=== PATIENT | male | born 1950 | race Caucasian/White ===

== ENCOUNTER 2017-01-12 10:45 | Inpatient (IN) | payer OTHER ==
[2017-01-12 11:02] VITALS: BMI 33.3
--- NOTE | 2017-01-12 12:04 | PDOC ---
History of Present Illness - General Chief Complaint: Revisit, Lab Variance Stated Complaint: PCP SENT FOR ADMIN Time Seen by Provider: 01/12/17 11:40 History Source: Patient Exam Limitations: No Limitations - History of Present Illness Initial Comments: 01/12/17 12:03 This is a 66-year-old male with past medical history of hypertension, pacemaker , aortic valve replacements with an artificial valve, CABG 3, MN, CVA with left -sided residual deficits, COPD, asthma stenosis, CHF who presents today for admission to have biopsy of left groin tumor. Patient states she is under the care of Dr. Munroe for wound care on bilateral lower extremities who found a mass in the left groin which she wants biopsy. Patient is on Coumadin status post CVA and AV replacement and needs his INR to be subtherapeutic to have procedure performed. Patient states his last Coumadin dose was evening. Patient currently denies any headaches, blurry vision, dizziness, chest pain, shortness of breath, abdominal pain, rectal bleeding, urinary difficulties. Past History - Past Medical History Allergies/Adverse Reactions: Allergies Allergy/AdvReac Type Severity Reaction Status Date / Time No Known Drug Allergies Allergy Verified 08/30/14 06:54 Home Medications: Ambulatory Orders Amlodipine Besylate [Norvasc -] 2.5 mg PO BID 01/12/17 Aspirin [ASA -] 81 mg PO DAILY 01/12/17 Atorvastatin Ca [Lipitor] 40 mg PO HS 01/12/17 Levetiracetam [Keppra -] 500 mg PO BID 01/12/17 Nortriptyline HCl [Pamelor -] 10 mg PO HS 01/12/17 Warfarin Sodium [Coumadin] 7.5 mg PO DAILY 01/12/17 Docusate Sodium [Colace -] 100 mg PO TID #90 capsule 01/15/17 Oxycodone HCl/Acetaminophen [Percocet 5-325 mg Tablet] 1 - 2 tab PO Q4H #20 tablet MDD 4 01/15/17 Amlodipine Besylate [Norvasc -] 2.5 mg PO BID tablet 01/21/17 Atorvastatin Ca [Lipitor] 20 mg PO HS tablet 01/21/17 Levetiracetam [Keppra -] 500 mg PO BID tablet 01/21/17 Nortriptyline HCl [Pamelor -] 10 mg PO HS capsule 01/21/17 Sulfamethoxazole/Trimethoprim [Bactrim Ds Tablet] 1 each PO BID #10 tablet 01/21 Warfarin Na [Coumadin -] 7.5 mg PO DAILY@1800 tablet 01/21/17 Anemia: No Asthma: No Cancer: No Cardiac Disorders: Yes (AORTIC VALVE REPLACEMENT, TRANSVERSE ARCH GRAFT) CVA: No COPD: Yes (ABESTOSIS) CHF: Yes Dementia: No Diabetes: No GI Disorders: Yes (HIATAL HERNIA) Disorders: No HTN: Yes Hypercholesterolemia: Yes Liver Disease: No Seizures: No Thyroid Disease: No - Surgical History Abdominal Surgery: No Appendectomy: No Cardiac Surgery: Yes (PACEMAKER; VALVE REPLACEMENT,TRANSVERSE ARCH GRAFT) Cholecystectomy: No Lung Surgery: No Neurologic Surgery: No Orthopedic Surgery: No - Immunization History Immunization Up to Date: Yes - Suicide/Smoking/Psychosocial Hx Smoking Status: No Smoking History: Former smoker Have you smoked in the past 12 months: Yes Number of Cigarettes Smoked Daily: 8 If you are a former smoker, when did you quit?: years ago Cigars Per Day: 1 Information on smoking cessation initiated: No 'Breaking Loose' booklet given: 08/16/14 Hx Alcohol Use: Yes (2 BEERS/DAY) Drug/Substance Use Hx: No Substance Use Type: Alcohol Hx Substance Use Treatment: No Review of Systems - Review of Systems Able to Perform ROS?: Yes Is the patient limited Croatian proficient: No Constitutional: No: Symptoms Reported HEENTM: No: Symptoms Reported Respiratory: No: Symptoms reported Cardiac (ROS): No: Symptoms Reported ABD/GI: No: Symptoms Reported : No: Symptoms Reported Musculoskeletal: Yes: See HPI Integumentary: No: Symptoms Reported Neurological: No: Symptoms reported *Physical Exam - Vital Signs Last Vital Signs Temp Pulse Resp BP Pulse Ox 98.8 F 80 20 148/85 98 01/12/17 10:59 01/12/17 10:59 01/12/17 10:59 01/12/17 10:59 01/12/17 10:59 - Physical Exam General Appearance: Yes: Appropriately Dressed. No: Apparent Distress HEENT: positive: EOMI, IAN, Normal ENT Inspection Neck: positive: Trachea midline, Supple Respiratory/Chest: positive: Lungs Clear, Normal Breath Sounds, Hyperresonant. negative: Chest Tender, Respiratory Distress, Accessory Muscle Use Cardiovascular: positive: Regular Rhythm, Regular Rate, Murmur (3/6 holosystolic ). negative: S1, S2 Vascular Pulses: Dorsalis-Pedis (R): 2+, Doralis-Pedis (L): 2+ Gastrointestinal/Abdominal: positive: Normal Bowel Sounds, Soft. negative: Tender Musculoskeletal: positive: Normal Inspection. negative: CVA Tenderness Extremity: positive: Other (venous stasis changes noted to bilateral lower extremities) Integumentary: positive: Dry, Warm, Other (venous stasis changes noted to bilateral lower extremities) Neurologic: positive: skiver sock linings II-XII NML intact, Fully Oriented, Alert, Normal Mood/ Affect, Normal Response, Motor Strength 07/18 ED Treatment Course - LABORATORY CBC & Chemistry Diagram: 01/20/17 12:40 01/20/17 12:40 - RADIOLOGY Radiology Studies Ordered: Category Date Time Status CHEST PA & LAT [RAD] Stat Radiology 01/12/17 11:57 Ordered Medical Decision Making - Medical Decision Making 01/22/17 12:26 01/12/17 12:03 A/P: This is a 66-year-old male with past medical history of hypertension, pacemaker , aortic valve replacements with an artificial valve, CABG 3, MN, CVA with left -sided residual deficits, COPD, asthma stenosis, CHF who presents today for admission to have biopsy of left groin tumor. Patient states she is under the care of Dr. Munroe for wound care on bilateral lower extremities who found a mass in the left groin which she wants biopsy. Patient is on Coumadin status post CVA and AV replacement and needs his INR to be subtherapeutic to have procedure performed. Patient states his last Coumadin dose was evening. Patient currently denies any headaches, blurry vision, dizziness, chest pain, shortness of breath, abdominal pain, rectal bleeding, urinary difficulties. Upon exam a 4 cm palpable circular mass noted in the left groin. Patient with full sensation and movement distal to mass. DP and PT pulses +2 in bilateral lower extremities. Moves all extremities 4 with strength 5 out of 5 noted in all extremities. Patient does have residual left-sided hand tingling status post CVA. Diagnosis- right groin mass I will collect a CBC, CMP, regulation profile. I will collect a chest x-ray for admission. I'll do an EKG for admission. After results I will contact Dr. Weinstein for admission. 01/12/17 14:[address] Monet. Patient will be admitted to [facility] for biopsy of his right groin. *DC/Admit/Observation/Transfer Diagnosis at time of Disposition: Mass - Discharge Dispostion Disposition: HOME Condition at time of disposition: Fair Admit: Yes Decision to Admit order Date/Time: 01/12/17 14:31 - Prescriptions - Referrals - Patient Instructions - Post Discharge Activity
[2017-01-12 13:24] LABS: BASOPHIL 0.8 % (0-2.0); EOSINOPHIL 1.9 % (0-4.5); MCH 32.3 pg (25.7-33.7); MCHC 33.5 g/dl (32.0-35.9); MEAN CELL VOLUME 96.3 fl (80-96); MEAN PLT VOLUME 8.1 fl (7.5-11.1); PLATELET COUNT 179 K/MM3 (134-434); RDW 14.4 % (11.9-15.9)
[2017-01-12 13:31] LABS: INR 1.42 (0.82-1.09); PROTHROMBIN TIME (PATIENT) 16.1 SEC (9.98-11.88)
[2017-01-12 13:36] LABS: ALBUMIN 3.9 g/dl (3.4-5.0); ALK PHOS 84 U/L (45-117); ANION GAP 4 (8-16); BILIRUBIN,TOTAL 0.5 mg/dL (0.2-1.0); CALCIUM 8.8 mg/dL (8.5-10.1); CO2 31 mmol/L (21-32); CREATININE 0.8 mg/dL (0.7-1.3); GLUCOSE,RANDOM 83 mg/dL (74-106); SGOT/AST 17 U/L (15-37); SGPT/ALT 21 U/L (12-78)
--- NOTE | 2017-01-12 14:55 | EKG ---
Test Reason : Blood Pressure : / mmHG Vent. Rate : 080 BPM Atrial Rate : 073 BPM P-R Int : 000 ms QRS Dur : 192 ms QT Int : 472 ms P-R-T Axes : 000 -38 077 degrees QTc Int : 544 ms Ventricular-paced rhythm ABNORMAL ECG WHEN COMPARED WITH ECG OF 28-JUL-2013 16:21, NO SIGNIFICANT CHANGE WAS FOUND Confirmed by MUSTAPHA SÁNCHEZ MD ([id number]) on 01/12/2017 2:55:07 PM Referred By: Confirmed By:MUSTAPHA SÁNCHEZ MD
[2017-01-12] MEDS ORDERED: HEPARIN NA (PORCINE) 5,000 UNITS/ML 1ML VIAL IVPUSH PRN (17:35)
--- NOTE | 2017-01-12 17:41 | HP ---
Admitting History and Physical - Primary Care Physician PCP: Viridiana Monet - Admission Chief Complaint: lymph node resection History of Present Illness: history cva,afib, aortic valve replacement metal, neuropathy, htn here with lower extremity lymph node needing resection and biopsy. 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 Cardiovascular: Yes: AFIB, HTN, Other (atrial valve prosthesis) - Smoking History Smoking history: Former smoker Have you smoked in the past 12 months: Yes Aproximately how many cigarettes per day: 8 If you are a former smoker, when did you quit?: years ago - Alcohol/Substance Use Hx Alcohol Use: Yes (2 BEERS/DAY) Home Medications - Allergies Allergies/Adverse Reactions: Allergies Allergy/AdvReac Type Severity Reaction Status Date / Time No Known Drug Allergies Allergy Verified 08/30/14 06:54 - Home Medications Home Medications: Ambulatory Orders Amlodipine Besylate [Norvasc -] 2.5 mg PO BID 01/12/17 Aspirin [ASA -] 81 mg PO DAILY 01/12/17 Atorvastatin Ca [Lipitor] 40 mg PO HS 01/12/17 Levetiracetam [Keppra -] 500 mg PO BID 01/12/17 Nortriptyline HCl [Pamelor -] 10 mg PO HS 01/12/17 Warfarin Sodium [Coumadin] 7.5 mg PO DAILY 01/12/17 Review of Systems - Review of Systems Constitutional: reports: No Symptoms Eyes: reports: No Symptoms HENT: reports: No Symptoms Neck: reports: No Symptoms Cardiovascular: reports: No Symptoms Respiratory: reports: No Symptoms Gastrointestinal: reports: No Symptoms Genitourinary: reports: No Symptoms Musculoskeletal: reports: Muscle Weakness Integumentary: reports: Rash Neurological: reports: Pre-Existing Deficit, Weakness Endocrine: reports: No Symptoms Hematology/Lymphatic: reports: Swollen Glands, Other Psychiatric: reports: No Symptoms Physical Examination Vital Signs: Vital Signs Temperature 98.8 F 01/12/17 10:59 Pulse Rate 80 01/12/17 10:59 Respiratory Rate 20 01/12/17 10:59 Blood Pressure 148/85 01/12/17 10:59 O2 Sat by Pulse Oximetry (%) 98 01/12/17 10:59 Constitutional: Yes: No Distress Eyes: Yes: WNL HENT: Yes: WNL Neck: Yes: WNL Cardiovascular: Yes: Pulse Irregular, Murmur Respiratory: Yes: WNL Gastrointestinal: Yes: WNL ...Rectal Exam: Yes: WNL Musculoskeletal: Yes: Muscle Weakness Extremities: Yes: WNL Edema: Yes Edema: LLE: 1+, RLE: 1+ Peripheral Pulses WNL: Yes Integumentary: Yes: Venous Stasis Changes Wound/Incision: Yes: Open to air Neurological: Yes: Paresthesia, Pre-Existing Deficit, Unsteady Gait, Weakness, Other ...Motor Strength: LLE, RLE Psychiatric: Yes: WNL Problem List - Problems (1) Mass Code(s): R22.9 - LOCALIZED SWELLING, MASS AND LUMP, UNSPECIFIED (2) Venous (peripheral) insufficiency Code(s): I87.2 - VENOUS INSUFFICIENCY (CHRONIC) (PERIPHERAL) (3) H/O heart valve replacement with bioprosthetic valve Code(s): Z95.3 - PRESENCE OF XENOGENIC HEART VALVE Assessment/Plan heparin iv stopped coumadin for 3 days now cardiology eval oob to chair urgery for mass lower extremity
[2017-01-12] MEDS: HEPARIN INFUSION - 500 ML IVPB SCH (18:20)
[2017-01-12] MEDS ORDERED: HEPARIN INFUSION - 500 ML IVPB ONE (18:20)
--- NOTE | 2017-01-12 21:16 | CONSULT ---
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 Cardio/Vascular: Yes: AFIB, HTN, Other (atrial valve prosthesis) - Alcohol/Substance Use Hx Alcohol Use: Yes (2 BEERS/DAY) - Smoking History Smoking history: Former smoker Have you smoked in the past 12 months: Yes Aproximately how many cigarettes per day: 8 If you are a former smoker, when did you quit?: years ago Home Medications - Allergies Allergies/Adverse Reactions: Allergies Allergy/AdvReac Type Severity Reaction Status Date / Time No Known Drug Allergies Allergy Verified 08/30/14 06:54 - Home Medications Home Medications: Ambulatory Orders Amlodipine Besylate [Norvasc -] 2.5 mg PO BID 01/12/17 Aspirin [ASA -] 81 mg PO DAILY 01/12/17 Atorvastatin Ca [Lipitor] 40 mg PO HS 01/12/17 Levetiracetam [Keppra -] 500 mg PO BID 01/12/17 Nortriptyline HCl [Pamelor -] 10 mg PO HS 01/12/17 Warfarin Sodium [Coumadin] 7.5 mg PO DAILY 01/12/17 Family Disease History - Family Disease History Family History: Unremarkable Review of Systems - Review of Systems Constitutional: denies: Fever Neck: reports: No Symptoms Cardiovascular: denies: Chest Pain Respiratory: denies: Cough Gastrointestinal: denies: Abdominal Pain Neurological: denies: Change in LOC Pain Intensity: 3 Physical Exam Vital Signs: Vital Signs Temperature 98.8 F 01/12/17 10:59 Pulse Rate 84 01/12/17 18:13 Respiratory Rate 18 01/12/17 18:13 Blood Pressure 152/81 01/12/17 18:13 O2 Sat by Pulse Oximetry (%) 99 01/12/17 18:13 Constitutional: Yes: Calm Cardiovascular: Yes: WNL Respiratory: Yes: Regular Gastrointestinal: Yes: Soft, Other (Left groin/inguinal mass- hard, mild tenderness, no erythema, no discharge, not mobile). No: Tenderness, Tenderness , Rebound Neurological: Yes: Alert, Oriented Labs: CBC, BMP 01/12/17 13:10 01/12/17 13:10 Problem List - Problems (1) Left groin mass Code(s): R19.09 - OTHER INTRA-ABDOMINAL AND PELVIC SWELLING, MASS AND LUMP Assessment/Plan 66 male with left groin mass Will perform surgical biopsy once cleared by cardiology Will need heparin drip stopped 6 hours prior to surgery
[2017-01-12] MEDS: amLODIPine BESYLATE 2.5 MG TABLET (FP) PO SCH (21:53)
[2017-01-12] MEDS: levETIRAcetam 500 MG TABLET (FP) PO SCH (21:53)
[2017-01-12] MEDS: ATORVASTATIN CA 20 MG TABLET (FP) PO SCH (21:53)
[2017-01-12] MEDS: NORTRIPTYLINE HCL 10 MG CAPSULE PO SCH (21:54)
[2017-01-12] MEDS ORDERED: NORTRIPTYLINE HCL 10 MG CAPSULE PO SCH (22:00)
[2017-01-13] MEDS: HEPARIN INFUSION - 500 ML IVPB SCH ×2 (00:50→20:33)
[2017-01-13] MEDS: HEPARIN NA (PORCINE) 5,000 UNITS/ML 1ML VIAL IVPUSH PRN (00:50)
--- NOTE | 2017-01-13 09:02 | CON.CARD ---
Cardiology Consult (text) - Consultation Consultation Note: Cardiology Consult Dictated 66M w/ h/p Reop AVR (mechanical, on AC), ascending aortic aneurysm graft, CVA, PPM ([employer] [facility]) admitted for biopsy groin mass. REC: -D/W Dr. Monet and RN- cancel surgery today -Needs device interrogation, to determine if PPM dependant as suggested on ECG ( he also reports device was at ABBI) -Echo for EF assessment -Continue heparin gtts Further reccs pending above. Thank you.
[2017-01-13 09:14] LABS: INR 1.28 (0.82-1.09); PROTHROMBIN TIME (PATIENT) 14.5 SEC (9.98-11.88)
[2017-01-13 09:23] LABS: ALBUMIN 3.6 g/dl (3.4-5.0); ANION GAP 7 (8-16); CALCIUM 8.4 mg/dL (8.5-10.1); CHOLESTEROL 130 mg/dL (50-200); CO2 28 mmol/L (21-32); CREATININE 0.8 mg/dL (0.7-1.3); GLUCOSE,RANDOM 84 mg/dL (74-106); SGOT/AST 14 U/L (15-37); SGPT/ALT 20 U/L (12-78)
[2017-01-13 09:32] LABS: ALK PHOS 79 U/L (45-117); BILIRUBIN,TOTAL 0.6 mg/dL (0.2-1.0); THYROID STIMULATING HORMONE 1.55 uIU/ml (0.358-3.74); TOT PROT 7.2 g/dl (6.4-8.2)
[2017-01-13] MEDS: levETIRAcetam 500 MG TABLET (FP) PO SCH ×2 (09:43→22:09)
[2017-01-13] MEDS: amLODIPine BESYLATE 2.5 MG TABLET (FP) PO SCH ×2 (09:43→22:09)
[2017-01-13] MEDS ORDERED: amLODIPine BESYLATE 10 MG TABLET (FP) PO SCH (10:00)
--- NOTE | 2017-01-13 10:31 | CONS ---
DATE OF CONSULTATION: 01/13/2017 REQUESTED BY: Viridiana Monet MD REASON FOR CONSULTATION: Preoperative clearance. 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. He was admitted for biopsy of a groin mass. Coumadin was held and he was placed on heparin drip. REVIEW OF SYSTEMS: He has chronic dyspnea on exertion that he attributes to his asbestosis. He denies history of coronary artery disease, denies anginal symptoms, palpitations, PND, orthopnea. 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 PAST MEDICAL HISTORY: As above and also includes prior CVA which occurred after his aortic surgery, hypertension, asbestosis, hyperlipidemia. ALLERGIES: None. HOME MEDICATIONS: Include Coumadin 7.5 daily, nortriptyline 10 at bedtime, Keppra 500 b.i.d., Lipitor 40 at bedtime, aspirin 81, and amlodipine 2.5. FAMILY HISTORY: Noncontributory. SOCIAL HISTORY: Former smoker. Drinks 2 beers per day. PHYSICAL EXAMINATION: General: Alert and oriented. Vital Signs: Afebrile, temperature 98.1, blood pressure 133/78, saturating 99 on room air. Neck: No bruits. Median sternotomy is noted. Heart: Mechanical S2. There is no murmur. Chest: Clear. Abdomen: Soft. Extremities: Venostasis with no edema. DIAGNOSTIC DATA: EKG shows ventricular pacing. Chest x-ray showed cardiomegaly, no infiltrates. CBC was reviewed and was normal. INR is down to 1.42. Patient is currently on heparin. Basic metabolic panel was normal on admission. IMPRESSION: A 66-year-old male with mechanical aortic valve, history of ascending aneurysm graft repair, permanent pacemaker, admitted for biopsy of groin mass. PLAN: 1. Discussed with Dr. Monet and patient's nurse - hold surgery today. 2. Needs [employer] Ever interrogation as patient reports that his battery was at elective replacement interval and also to determine if he is pacemaker dependent as suggested on EKG. 3. Echocardiogram for assessment of LV function. Further recommendations for preoperative management pending above. Thank you for the consultation. FEI PATEL M.D. [id number] MTDD
--- NOTE | 2017-01-13 15:27 | PN ---
Progress Note, Physician Chief Complaint: AWAKE ALERT AWAITING PACEMAKER EVAL - Current Medication List Current Medications: Active Medications Amlodipine Besylate (Norvasc -) 2.5 mg PO BID [facility] Last Admin: 01/13/17 09:43 Dose: 2.5 mg Atorvastatin Calcium (Lipitor -) 20 mg PO HS [facility] Last Admin: 01/12/17 21:53 Dose: 20 mg Heparin Sodium (Porcine) (Heparin -) 1,000 unit IVPUSH PRN PRN PRN Reason: Heparin Heparin Sodium (Porcine) (Heparin -) 5,000 unit IVPUSH PRN PRN PRN Reason: Heparin Last Admin: 01/13/17 00:50 Dose: 5,000 unit Heparin Sodium/Dextrose (Heparin Infusion -) 500 mls @ 16 mls/hr IVPB TITR DIANE ; 800 UNITS/HR PRN Reason: Protocol Last Titration: 01/13/17 10:42 Dose: 950 units/hr Levetiracetam (Keppra -) 500 mg PO BID [facility] Last Admin: 01/13/17 09:43 Dose: 500 mg Nortriptyline HCl (Pamelor -) 10 mg PO [facility] Last Admin: 01/12/17 21:54 Dose: 10 mg - Objective Vital Signs: Vital Signs Temperature 98 F 01/13/17 09:00 Pulse Rate 80 01/13/17 09:00 Respiratory Rate 20 01/13/17 09:00 Blood Pressure 144/85 01/13/17 09:00 O2 Sat by Pulse Oximetry (%) 99 01/13/17 02:34 Constitutional: Yes: Mild Distress Eyes: Yes: WNL HENT: Yes: WNL Neck: Yes: WNL Cardiovascular: Yes: Pulse Irregular Respiratory: Yes: WNL Gastrointestinal: Yes: WNL Genitourinary: Yes: WNL Musculoskeletal: Yes: Muscle Weakness Extremities: Yes: WNL Edema: Yes Peripheral Pulses WNL: Yes Integumentary: Yes: WNL Wound/Incision: Yes: Clean/Dry Neurological: Yes: Pre-Existing Deficit ...Motor Strength: LLE, RLE Psychiatric: Yes: WNL Labs: CBC, BMP 01/13/17 07:45 INR, PTT INR 1.28 (0.82-1.09) H 01/13/17 07:45 Problem List - Problems (1) Mass Code(s): R22.9 - LOCALIZED SWELLING, MASS AND LUMP, UNSPECIFIED (2) Venous (peripheral) insufficiency Code(s): I87.2 - VENOUS INSUFFICIENCY (CHRONIC) (PERIPHERAL) (3) H/O heart valve replacement with bioprosthetic valve Code(s): Z95.3 - PRESENCE OF XENOGENIC HEART VALVE Assessment/Plan heparin iv stopped coumadin cardiology eval appreciated pacemaker eval pending oob to chair surgery for mass lower extremity
--- NOTE | 2017-01-13 19:23 | PN ---
Progress Note (short form) - Note Progress Note: No acute events Awaiting cardiology clearance for surgery No pain Vital Signs Period Temp Pulse Resp BP Sys/Lugo Pulse Ox Last 24 Hr 98 F-99.0 F 79-86 18-20 132-144/65-85 99 Left groin- unchanged CBC, BMP 01/12/17 13:10 01/13/17 07:45 INR, PTT INR 1.28 (0.82-1.09) H 01/13/17 07:45 Will plan biopsy after cleared by cardiology Problem List - Problems (1) Left groin mass Code(s): R19.09 - OTHER INTRA-ABDOMINAL AND PELVIC SWELLING, MASS AND LUMP
[2017-01-13] MEDS: ATORVASTATIN CA 20 MG TABLET (FP) PO SCH (22:09)
[2017-01-13] MEDS: NORTRIPTYLINE HCL 10 MG CAPSULE PO SCH (22:09)
[2017-01-14 08:26] LABS: MCH 32.4 pg (25.7-33.7); MCHC 33.7 g/dl (32.0-35.9); MEAN PLT VOLUME 8.4 fl (7.5-11.1); PLATELET COUNT 157 K/MM3 (134-434); RDW 14.3 % (11.9-15.9); WHITE BLOOD COUNT 7.9 K/mm3 (4.0-10.0)
--- NOTE | 2017-01-14 08:36 | PN ---
Progress Note, Physician Chief Complaint: No distress - Current Medication List Current Medications: Active Medications Amlodipine Besylate (Norvasc -) 2.5 mg PO BID [facility] Last Admin: 01/13/17 22:09 Dose: 2.5 mg Atorvastatin Calcium (Lipitor -) 20 mg PO HS [facility] Last Admin: 01/13/17 22:09 Dose: 20 mg Heparin Sodium (Porcine) (Heparin -) 1,000 unit IVPUSH PRN PRN PRN Reason: Heparin Heparin Sodium (Porcine) (Heparin -) 5,000 unit IVPUSH PRN PRN PRN Reason: Heparin Last Admin: 01/13/17 00:50 Dose: 5,000 unit Heparin Sodium/Dextrose (Heparin Infusion -) 500 mls @ 16 mls/hr IVPB TITR DIANE ; 800 UNITS/HR PRN Reason: Protocol Last Admin: 01/13/17 20:33 Dose: 19 mls/hr Levetiracetam (Keppra -) 500 mg PO BID [facility] Last Admin: 01/13/17 22:09 Dose: 500 mg Nortriptyline HCl (Pamelor -) 10 mg PO HS [facility] Last Admin: 01/13/17 22:09 Dose: 10 mg - Objective Vital Signs: Vital Signs Temperature 97.5 F L 01/14/17 06:07 Pulse Rate 80 01/14/17 06:07 Respiratory Rate 18 01/14/17 06:07 Blood Pressure 123/73 01/14/17 06:07 O2 Sat by Pulse Oximetry (%) 99 01/13/17 21:48 Constitutional: Yes: Calm Eyes: Yes: Conjunctiva Clear Cardiovascular: Yes: Regular Rate and Rhythm Respiratory: Yes: CTA Bilaterally Gastrointestinal: Yes: Soft Neurological: Yes: Alert, Oriented ...Motor Strength: WNL Labs: CBC, BMP 01/14/17 07:00 01/13/17 07:45 INR, PTT INR 1.28 (0.82-1.09) H 01/13/17 07:45 Laboratory Tests 01/13/17 01/13/17 01/13/17 07:45 07:45 07:45 WBC Hgb Plt Count INR 1.28 H PTT (Actin FS) 55.5 H D Potassium 3.6 01/14/17 07:00 WBC 7.9 Hgb 12.3 Plt Count 157 INR PTT (Actin FS) Potassium Assessment/Plan 66M w/ h/p Reop AVR (mechanical, on AC), ascending aortic aneurysm graft, CVA, PPM ([facility] [facility]) admitted for biopsy groin mass. [facility] Ever interrogation: Patient is at ABBI - elective battery replacement interval, should have battery change in next 3 months DDD at base rate 80bpm 99% V-paced, PACEMAKER DEPENDANT Normal device function. REC: No cardiac contraindications to surgery. As he is PPM dependant, can place magnet during surgery and it will pace at 88bpm. 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 Resume Coumadin post op when feasible with heparin gtts as bridge until INR 2-3
[2017-01-14] MEDS: HEPARIN INFUSION - 500 ML IVPB SCH ×2 (10:00→19:41)
[2017-01-14] MEDS: levETIRAcetam 500 MG TABLET (FP) PO SCH ×2 (10:02→22:07)
[2017-01-14] MEDS: amLODIPine BESYLATE 2.5 MG TABLET (FP) PO SCH ×2 (10:03→22:07)
--- NOTE | 2017-01-14 11:10 | PN ---
Progress Note, Physician Chief Complaint: SCHEDULED FOR SURGERY TOMORROW AWAKE ALERT NO DISTRESS - Current Medication List Current Medications: Active Medications Amlodipine Besylate (Norvasc -) 2.5 mg PO BID [facility] Last Admin: 01/14/17 10:03 Dose: 2.5 mg Atorvastatin Calcium (Lipitor -) 20 mg PO HS [facility] Last Admin: 01/13/17 22:09 Dose: 20 mg Heparin Sodium (Porcine) (Heparin -) 1,000 unit IVPUSH PRN PRN PRN Reason: Heparin Heparin Sodium (Porcine) (Heparin -) 5,000 unit IVPUSH PRN PRN PRN Reason: Heparin Last Admin: 01/13/17 00:50 Dose: 5,000 unit Heparin Sodium/Dextrose (Heparin Infusion -) 500 mls @ 16 mls/hr IVPB TITR DIANE ; 800 UNITS/HR PRN Reason: Protocol Last Admin: 01/13/17 20:33 Dose: 19 mls/hr Levetiracetam (Keppra -) 500 mg PO BID [facility] Last Admin: 01/14/17 10:02 Dose: 500 mg Nortriptyline HCl (Pamelor -) 10 mg PO [facility] Last Admin: 01/13/17 22:09 Dose: 10 mg - Objective Vital Signs: Vital Signs Temperature 98.2 F 01/14/17 10:43 Pulse Rate 90 01/14/17 10:43 Respiratory Rate 20 01/14/17 10:43 Blood Pressure 140/82 01/14/17 10:43 O2 Sat by Pulse Oximetry (%) 99 01/13/17 21:48 Constitutional: Yes: No Distress Eyes: Yes: WNL HENT: Yes: WNL Neck: Yes: WNL Cardiovascular: Yes: Pulse Irregular Respiratory: Yes: WNL Gastrointestinal: Yes: WNL Genitourinary: Yes: WNL Musculoskeletal: Yes: Muscle Weakness Extremities: Yes: Deformity Integumentary: Yes: Venous Stasis Changes Wound/Incision: Yes: Clean/Dry Neurological: Yes: Pre-Existing Deficit, Unsteady Gait ...Motor Strength: LLE, RLE Psychiatric: Yes: WNL Labs: CBC, BMP 01/14/17 07:00 01/13/17 07:45 INR, PTT INR 1.28 (0.82-1.09) H 01/13/17 07:45 Problem List - Problems (1) Mass Code(s): R22.9 - LOCALIZED SWELLING, MASS AND LUMP, UNSPECIFIED (2) Venous (peripheral) insufficiency Code(s): I87.2 - VENOUS INSUFFICIENCY (CHRONIC) (PERIPHERAL) (3) H/O heart valve replacement with bioprosthetic valve Code(s): Z95.3 - PRESENCE OF XENOGENIC HEART VALVE Assessment/Plan heparin iv stopped coumadin cardiology eval appreciated pacemaker eval pending oob to chair surgery for mass lower extremity
--- NOTE | 2017-01-14 13:43 | PN ---
Progress Note (short form) - Note Progress Note: No acute events Cleared by cardiology Vital Signs Period Temp Pulse Resp BP Sys/Lugo Pulse Ox Last 24 Hr 97.5 F-99.0 F 76-90 18-20 122-140/65-82 99 Left groin unchanged CBC, BMP 01/14/17 07:00 01/13/17 07:45 NPO at midnight Stop IV heparin at midnight For biopsy in am Problem List - Problems (1) Left groin mass Code(s): R19.09 - OTHER INTRA-ABDOMINAL AND PELVIC SWELLING, MASS AND LUMP
[2017-01-14] MEDS: ATORVASTATIN CA 20 MG TABLET (FP) PO SCH (22:07)
[2017-01-14] MEDS: NORTRIPTYLINE HCL 10 MG CAPSULE PO SCH (22:08)
[2017-01-15] MEDS ORDERED: LIDOCAINE 1%/EPI 1:100000 (20 ML MULTI DOSE VIAL) ONE (07:35)
[2017-01-15] MEDS ORDERED: BACITRACIN 15 GM TUBE TOPICAL OINTMENT ONE (07:35)
[2017-01-15] MEDS ORDERED: ceFAZolin SODIUM 1 GM VIAL IVPB ONE (07:58)
[2017-01-15] MEDS ORDERED: LIDOCAINE 1%/EPI 1:100000 (50 ML MULTI DOSE VIAL) INF ONE (08:01)
--- NOTE | 2017-01-15 08:50 | OP ---
Operative Note - Note: Operative Date: 01/15/17 Pre-Operative Diagnosis: Left groin mass Operation: Excisional biopsy of left groin mass Post-Operative Diagnosis: Same as Pre-op Surgeon: Geovanni Weinstein Anesthesia: Local Specimens Removed: Left groin mass Estimated Blood Loss (mls): 5 Operative Report Dictated: Yes
--- NOTE | 2017-01-15 09:26 | OP ---
DATE OF OPERATION: 01/15/2017 SURGEON: Geovanni Weinstein MD PREOPERATIVE DIAGNOSIS: Left groin mass. POSTOPERATIVE DIAGNOSIS: Left groin mass. PROCEDURE PERFORMED: Excisional biopsy of left groin mass. SPECIMEN: Left groin mass. ESTIMATED BLOOD LOSS: 5 mL. ANESTHESIA: Local. FINDINGS: Enlarged left groin mass. PATHOLOGY: Left groin mass for microbiology, culture, fresh specimen for flow cytometry to rule out lymphoma, and the rest of the specimen for pathology. REASON FOR PROCEDURE: This is a 66-year-old gentleman who was found to have a left groin mass on examination. CONSENT: After cleared by Cardiology, he was consented for a left groin mass biopsy/excisional biopsy. The risks and benefits of the procedure were explained. These included bleeding, infection, wound dehiscence, injury to surrounding structures (including vessel injury, nerve injury, bowel injury), CA, DVT and PE as some of the complications. He understood and signed informed consent. DESCRIPTION OF PROCEDURE: The patient was placed supine on the operating room table. The area was prepped and draped in the usual sterile fashion. A time-out was performed. Lidocaine with epinephrine was injected over the area that was palpated and noted to be the area of the left groin mass. Incision was made over the level of the mass and area dissected down to the level of the mass. The mass was grasped with a clamp and circumferentially dissected. A large portion of the mass was excised using electrocautery and sent off the field. The portion was sent for microbiology and the rest was sent for a fresh specimen to Pathology for pathology as well as flow cytometry to rule out lymphoma. This was discussed with Pathology prior to the case. Hemostasis was obtained using electrocautery. Surgicel dressing was placed after the wound was irrigated, suctioned and noted to be dry, to aid with hemostasis. 3-0 Vicryl sutures were used to close the wound in multiple layers and 4-0 Biosyn was used to close the subcutaneous tissue. Steri-Strips and Betadine ointment were applied. Dressings was applied. The patient tolerated the procedure well and was transferred to the recovery room in stable condition. Tacho [id number]
[2017-01-15 09:30] LABS: MCH 32.4 pg (25.7-33.7); MCHC 33.5 g/dl (32.0-35.9); MEAN CELL VOLUME 96.5 fl (80-96); MEAN PLT VOLUME 8.2 fl (7.5-11.1); PLATELET COUNT 170 K/MM3 (134-434); WHITE BLOOD COUNT 8.4 K/mm3 (4.0-10.0)
[2017-01-15] MEDS: amLODIPine BESYLATE 2.5 MG TABLET (FP) PO SCH ×2 (09:41→22:11)
[2017-01-15] MEDS: levETIRAcetam 500 MG TABLET (FP) PO SCH ×2 (09:41→22:11)
[2017-01-15] MEDS ORDERED: oxyCODONE HCL 5 MG TABLET PO PRN (11:08)
[2017-01-15] MEDS ORDERED: ACETAMINOPHEN 325 MG TABLET (FP) PO PRN (11:08)
--- NOTE | 2017-01-15 11:37 | PN ---
Progress Note, Physician Chief Complaint: AWAKE ALERT S/P RESECTION/BIOPSY RIGHT LOWER EXTREMITY MASS - Current Medication List Current Medications: Active Medications Acetaminophen (Tylenol -) 325 mg PO Q6H PRN PRN Reason: PAIN SCALE 6-10 Stop: 01/18/17 11:07 Amlodipine Besylate (Norvasc -) 2.5 mg PO BID [facility] Last Admin: 01/15/17 09:41 Dose: 2.5 mg Atorvastatin Calcium (Lipitor -) 20 mg PO HS [facility] Last Admin: 01/14/17 22:07 Dose: 20 mg Heparin Sodium (Porcine) (Heparin -) 1,000 unit IVPUSH PRN PRN PRN Reason: Heparin Last Admin: 01/14/17 19:38 Dose: 1,000 unit Heparin Sodium (Porcine) (Heparin -) 5,000 unit IVPUSH PRN PRN PRN Reason: Heparin Last Admin: 01/13/17 00:50 Dose: 5,000 unit Heparin Sodium/Dextrose (Heparin Infusion -) 500 mls @ 16 mls/hr IVPB TITR DIANE ; 800 UNITS/HR PRN Reason: Protocol Last Admin: 01/14/17 19:41 Dose: 24 mls/hr Cefazolin Sodium (Ancef 1 Gm Premixed Ivpb -) 50 mls @ 100 mls/hr IVPB Q8H-IV DIANE Stop: 01/16/17 10:29 Levetiracetam (Keppra -) 500 mg PO BID [facility] Last Admin: 01/15/17 09:41 Dose: 500 mg Nortriptyline HCl (Pamelor -) 10 mg PO [facility] Last Admin: 01/14/17 22:08 Dose: 10 mg Oxycodone HCl (Roxicodone -) 5 mg PO Q6H PRN PRN Reason: PAIN SCALE 6-10 - Objective Vital Signs: Vital Signs Temperature 97.1 F L 01/15/17 06:15 Pulse Rate 80 01/15/17 06:15 Respiratory Rate 20 01/15/17 06:15 Blood Pressure 125/74 01/15/17 06:15 O2 Sat by Pulse Oximetry (%) 97 01/14/17 21:00 Constitutional: Yes: Mild Distress Eyes: Yes: WNL HENT: Yes: WNL Neck: Yes: WNL Cardiovascular: Yes: Pulse Irregular, Murmur Respiratory: Yes: WNL Gastrointestinal: Yes: WNL Genitourinary: Yes: WNL Musculoskeletal: Yes: Muscle Weakness Extremities: Yes: WNL Edema: Yes Edema: LLE: 1+, RLE: 1+ Peripheral Pulses WNL: Yes Integumentary: Yes: Other Wound/Incision: Yes: Dressing Dry and Intact Neurological: Yes: Pre-Existing Deficit ...Motor Strength: LLE, RLE Psychiatric: Yes: WNL Labs: CBC, BMP 01/15/17 08:50 01/13/17 07:45 INR, PTT INR 1.28 (0.82-1.09) H 01/13/17 07:45 Problem List - Problems (1) Mass Code(s): R22.9 - LOCALIZED SWELLING, MASS AND LUMP, UNSPECIFIED (2) Venous (peripheral) insufficiency Code(s): I87.2 - VENOUS INSUFFICIENCY (CHRONIC) (PERIPHERAL) (3) H/O heart valve replacement with bioprosthetic valve Code(s): Z95.3 - PRESENCE OF XENOGENIC HEART VALVE Assessment/Plan S/P BIOPSY LOWER RIGHT EXTREMITY CHECK PATHOLOGY HEPARIN IV BRIDGE TO COUMADIN THERAPY PT EVAL OOB TO CHAIR CARDIOLOGY EVAL APPRECIATED
--- NOTE | 2017-01-15 12:08 | PN ---
Progress Note, Physician History of Present Illness: seen and examined today in [facility]. tolerated procedure well without complication. sitting up eating breakfast. - Current Medication List Current Medications: Active Medications Acetaminophen (Tylenol -) 325 mg PO Q6H PRN PRN Reason: PAIN SCALE 6-10 Stop: 01/18/17 11:07 Amlodipine Besylate (Norvasc -) 2.5 mg PO BID [facility] Last Admin: 01/15/17 09:41 Dose: 2.5 mg Atorvastatin Calcium (Lipitor -) 20 mg PO HS [facility] Last Admin: 01/14/17 22:07 Dose: 20 mg Heparin Sodium (Porcine) (Heparin -) 1,000 unit IVPUSH PRN PRN PRN Reason: Heparin Last Admin: 01/14/17 19:38 Dose: 1,000 unit Heparin Sodium (Porcine) (Heparin -) 5,000 unit IVPUSH PRN PRN PRN Reason: Heparin Last Admin: 01/13/17 00:50 Dose: 5,000 unit Heparin Sodium/Dextrose (Heparin Infusion -) 500 mls @ 16 mls/hr IVPB TITR DIANE ; 800 UNITS/HR PRN Reason: Protocol Last Admin: 01/14/17 19:41 Dose: 24 mls/hr Cefazolin Sodium (Ancef 1 Gm Premixed Ivpb -) 50 mls @ 100 mls/hr IVPB Q8H-IV DIANE Stop: 01/16/17 10:29 Levetiracetam (Keppra -) 500 mg PO BID [facility] Last Admin: 01/15/17 09:41 Dose: 500 mg Nortriptyline HCl (Pamelor -) 10 mg PO HS [facility] Last Admin: 01/14/17 22:08 Dose: 10 mg Oxycodone HCl (Roxicodone -) 5 mg PO Q6H PRN PRN Reason: PAIN SCALE 6-10 - Objective Vital Signs: Vital Signs Temperature 97.1 F L 01/15/17 06:15 Pulse Rate 80 01/15/17 06:15 Respiratory Rate 20 01/15/17 06:15 Blood Pressure 125/74 01/15/17 06:15 O2 Sat by Pulse Oximetry (%) 97 01/14/17 21:00 Constitutional: Yes: Well Nourished, No Distress, Calm Eyes: Yes: WNL, Conjunctiva Clear, EOM Intact, PERRL HENT: Yes: WNL, Atraumatic, Normocephalic Cardiovascular: Yes: Regular Rate and Rhythm, Murmur, S1, S2, Other (mechanical valve heard). No: Bradycardia, Tachycardia, Pulse Irregular, Bruit, JVD, Gallop , Rub, S3, S4, Varicosities Respiratory: Yes: Regular, CTA Bilaterally. No: Rales, Rhonchi, Wheezes Gastrointestinal: Yes: Normal Bowel Sounds, Soft. No: Distention, Tenderness Extremities: Yes: WNL Edema: No Peripheral Pulses WNL: Yes Peripheral Pulses: Left Doralis Pedis: 2+, Right Dorsalis Pedis: 2+ Neurological: Yes: Alert, Oriented Psychiatric: Yes: Alert, Oriented Labs: CBC, BMP 01/15/17 08:50 01/13/17 07:45 INR, PTT INR 1.28 (0.82-1.09) H 01/13/17 07:45 - ....Imaging Chest X-ray: Report Reviewed, Image Reviewed EKG: Report Reviewed, Image Reviewed Other: Report Reviewed, Image Reviewed Assessment/Plan 66M w/ h/p Reop AVR (mechanical, on AC), ascending aortic aneurysm graft, CVA, PPM ([facility]) admitted for biopsy groin mass. [facility] interrogation: Patient is at [facility] - elective battery replacement interval, should have battery change in next 3 months DDD at base rate 80bpm 99% V-paced, PACEMAKER DEPENDANT Normal device function. REC: Pt tolerated procedure well from a cardiac standpoint, no issues with PPM Patient is aware that battery is at ABBI and he will contact his primary embedded software engineer Wallace Beck who I have personally informed. He will f/up with h im Resume Coumadin filippo (today ideally) when determined safe from a surgical standpoint with heparin gtt as bridge until INR 2-3
[2017-01-15] MEDS ORDERED: LACTATED RINGERS SOLUTION 1,000 ML IV SCH (12:15)
[2017-01-15] MEDS: HEPARIN INFUSION - 500 ML IVPB SCH (17:29)
[2017-01-15] MEDS: CEFAZOLIN 1 GM/D5W 50 ML IVPB SCH (17:39)
[2017-01-15] MEDS: ATORVASTATIN CA 20 MG TABLET (FP) PO SCH (22:11)
[2017-01-15] MEDS: NORTRIPTYLINE HCL 10 MG CAPSULE PO SCH (22:12)
[2017-01-15] MEDS: HEPARIN NA (PORCINE) 5,000 UNITS/ML 1ML VIAL IVPUSH PRN (23:18)
[2017-01-16] MEDS: CEFAZOLIN 1 GM/D5W 50 ML IVPB SCH ×2 (01:01→09:54)
[2017-01-16 08:33] LABS: MCH 32.7 pg (25.7-33.7); MCHC 34.2 g/dl (32.0-35.9); MEAN CELL VOLUME 95.4 fl (80-96); MEAN PLT VOLUME 8.4 fl (7.5-11.1); PLATELET COUNT 160 K/MM3 (134-434); WHITE BLOOD COUNT 6.8 K/mm3 (4.0-10.0)
[2017-01-16] MEDS ORDERED: INSULIN (NOVOLOG) ASPART 100 UNITS/ML 10ML VIAL ONE (08:47)
[2017-01-16] MEDS ORDERED: INSULIN DETEMIR 100 UNITS/ML MDV SQ ONE (08:47)
[2017-01-16] MEDS ORDERED: INSULIN (NOVOLOG MIX 70/30) 100 UNITS/ML MDV SQ ONE (08:47)
[2017-01-16 09:04] LABS: ANION GAP 5 (8-16); CALCIUM 8.9 mg/dL (8.5-10.1); CO2 29 mmol/L (21-32); CREATININE 0.8 mg/dL (0.7-1.3); GLUCOSE,RANDOM 91 mg/dL (74-106)
--- NOTE | 2017-01-16 09:10 | PN ---
Progress Note, Physician Chief Complaint: sitting up, eating breakfast, no distress Give Abx post op by Surgery - Current Medication List Current Medications: Active Medications Acetaminophen (Tylenol -) 325 mg PO Q6H PRN PRN Reason: PAIN SCALE 6-10 Stop: 01/18/17 11:07 Amlodipine Besylate (Norvasc -) 2.5 mg PO BID [facility] Last Admin: 01/15/17 22:11 Dose: 2.5 mg Atorvastatin Calcium (Lipitor -) 20 mg PO HS [facility] Last Admin: 01/15/17 22:11 Dose: 20 mg Fentanyl (Sublimaze Injection -) 50 mcg IVPUSH [id number] PRN PRN Reason: PAIN Stop: 01/18/17 12:08 Heparin Sodium (Porcine) (Heparin -) 1,000 unit IVPUSH PRN PRN PRN Reason: Heparin Last Admin: 01/14/17 19:38 Dose: 1,000 unit Heparin Sodium (Porcine) (Heparin -) 5,000 unit IVPUSH PRN PRN PRN Reason: Heparin Last Admin: 01/15/17 23:18 Dose: 5,000 unit Heparin Sodium/Dextrose (Heparin Infusion -) 500 mls @ 16 mls/hr IVPB TITR DIANE ; 800 UNITS/HR PRN Reason: Protocol Last Titration: 01/15/17 23:14 Dose: 1,350 units/hr Cefazolin Sodium (Ancef 1 Gm Premixed Ivpb -) 50 mls @ 100 mls/hr IVPB Q8H-IV DIANE Stop: 01/16/17 10:29 Last Admin: 01/16/17 01:01 Dose: 100 mls/hr Lactated Ringer's (Lactated Ringers Solution) 1,000 mls @ 125 mls/hr IV ASDIR [facility] Last Admin: 01/15/17 17:39 Dose: 125 mls/hr Levetiracetam (Keppra -) 500 mg PO BID [facility] Last Admin: 01/15/17 22:11 Dose: 500 mg Nortriptyline HCl (Pamelor -) 10 mg PO HS [facility] Last Admin: 01/15/17 22:12 Dose: 10 mg Oxycodone HCl (Roxicodone -) 5 mg PO Q6H PRN PRN Reason: PAIN SCALE 6-10 - Objective Vital Signs: Vital Signs Temperature 98.2 F 01/15/17 22:10 Pulse Rate 82 01/15/17 22:10 Respiratory Rate 20 01/15/17 22:10 Blood Pressure 128/75 01/15/17 22:10 O2 Sat by Pulse Oximetry (%) 97 01/15/17 14:52 Constitutional: Yes: Calm Cardiovascular: Yes: Regular Rate and Rhythm (paced) Respiratory: Yes: Regular Gastrointestinal: Yes: Soft Edema: No Neurological: Yes: Alert Labs: CBC, BMP 01/16/17 07:00 01/16/17 07:00 INR, PTT INR 1.28 (0.82-1.09) H 01/13/17 07:45 Laboratory Tests 01/16/17 01/16/17 01/16/17 07:00 07:00 07:00 WBC 6.8 Hgb 12.5 Plt Count 160 PT with INR Pending INR Pending PTT ([facility]) Pending Potassium Creatinine 01/16/17 07:00 WBC Hgb Plt Count PT with INR INR PTT ([facility]) Potassium 4.0 Creatinine 0.8 Assessment/Plan Assessment/Plan 66M w/ h/p Reop AVR (mechanical, on AC), ascending aortic aneurysm graft, CVA, PPM ([facility]) admitted for biopsy groin mass. [facility] interrogation: Patient is at [facility] - elective battery replacement interval, should have battery change in next 3 months DDD at base rate 80bpm 99% V-paced, PACEMAKER DEPENDANT Normal device function. REC: Pt tolerated procedure well from a cardiac standpoint, no issues with PPM Patient is aware that battery is at ABBI and he will contact his primary factory manager Wallace Beck MD. We have also d/w Dr. Beck. Resume Coumadin filippo when determined safe from a surgical standpoint with heparin gtt as bridge until INR 2-3
[2017-01-16 09:20] LABS: INR 1.07 (0.82-1.09); PROTHROMBIN TIME (PATIENT) 12.1 SEC (9.98-11.88)
[2017-01-16] MEDS: amLODIPine BESYLATE 2.5 MG TABLET (FP) PO SCH ×2 (09:54→21:33)
[2017-01-16] MEDS: levETIRAcetam 500 MG TABLET (FP) PO SCH ×2 (09:54→21:32)
--- NOTE | 2017-01-16 11:10 | PN ---
Progress Note, Physician Chief Complaint: AWAKE ALERT NO COMPLAINTS ON HEPARIN IV - Current Medication List Current Medications: Active Medications Acetaminophen (Tylenol -) 325 mg PO Q6H PRN PRN Reason: PAIN SCALE 6-10 Stop: 01/18/17 11:07 Amlodipine Besylate (Norvasc -) 2.5 mg PO BID [facility] Last Admin: 01/16/17 09:54 Dose: 2.5 mg Atorvastatin Calcium (Lipitor -) 20 mg PO [facility] Last Admin: 01/15/17 22:11 Dose: 20 mg Fentanyl (Sublimaze Injection -) 50 mcg IVPUSH [id number] PRN PRN Reason: PAIN Stop: 01/18/17 12:08 Heparin Sodium (Porcine) (Heparin -) 1,000 unit IVPUSH PRN PRN PRN Reason: Heparin Last Admin: 01/14/17 19:38 Dose: 1,000 unit Heparin Sodium (Porcine) (Heparin -) 5,000 unit IVPUSH PRN PRN PRN Reason: Heparin Last Admin: 01/15/17 23:18 Dose: 5,000 unit Heparin Sodium/Dextrose (Heparin Infusion -) 500 mls @ 16 mls/hr IVPB TITR DIANE ; 800 UNITS/HR PRN Reason: Protocol Last Titration: 01/16/17 09:35 Dose: 1,350 units/hr Lactated Ringer's (Lactated Ringers Solution) 1,000 mls @ 125 mls/hr IV ASDIR [facility] Last Admin: 01/15/17 17:39 Dose: 125 mls/hr Levetiracetam (Keppra -) 500 mg PO BID [facility] Last Admin: 01/16/17 09:54 Dose: 500 mg Nortriptyline HCl (Pamelor -) 10 mg PO [facility] Last Admin: 01/15/17 22:12 Dose: 10 mg Nystatin/Triamcinolone Acetonide (Mycolog Ii Cream -) 1 applic TP BID [facility] Oxycodone HCl (Roxicodone -) 5 mg PO Q6H PRN PRN Reason: PAIN SCALE 6-10 Warfarin Sodium (Coumadin -) 10 mg PO ONCE@1800 ONE Stop: 01/16/17 18:01 - Objective Vital Signs: Vital Signs Temperature 98.2 F 01/15/17 22:10 Pulse Rate 82 01/15/17 22:10 Respiratory Rate 20 01/15/17 22:10 Blood Pressure 128/75 01/15/17 22:10 O2 Sat by Pulse Oximetry (%) 97 01/15/17 14:52 Constitutional: Yes: No Distress Eyes: Yes: WNL HENT: Yes: WNL Neck: Yes: WNL Cardiovascular: Yes: Murmur Respiratory: Yes: WNL Gastrointestinal: Yes: WNL Genitourinary: Yes: WNL Musculoskeletal: Yes: Muscle Weakness Extremities: Yes: Other Edema: Yes Edema: LLE: 1+, RLE: 1+ Peripheral Pulses WNL: Yes Integumentary: Yes: Rash Wound/Incision: Yes: Dressing Dry and Intact Neurological: Yes: Pre-Existing Deficit, Unsteady Gait, Weakness ...Motor Strength: LLE, RLE Psychiatric: Yes: Other Labs: CBC, BMP 01/16/17 07:00 01/16/17 07:00 INR, PTT INR 1.07 (0.82-1.09) 01/16/17 07:00 Problem List - Problems (1) Mass Code(s): R22.9 - LOCALIZED SWELLING, MASS AND LUMP, UNSPECIFIED (2) Venous (peripheral) insufficiency Code(s): I87.2 - VENOUS INSUFFICIENCY (CHRONIC) (PERIPHERAL) (3) H/O heart valve replacement with bioprosthetic valve Code(s): Z95.3 - PRESENCE OF XENOGENIC HEART VALVE Assessment/Plan BRIDGE HEPARIN TO COUMADIN CHECK INR IN MORNING OOB TO CHAIR DC PLANNING TOMORROW
[2017-01-16] MEDS: NYSTATIN/TRIAMCINOLONE TOPICAL CREAM 15 GM TUBE TP SCH (13:00)
[2017-01-16] MEDS ORDERED: WARFARIN NA 10 MG TABLET (FP) PO ONE (18:00)
[2017-01-16] MEDS ORDERED: PT OWN MED DRAWER 7, Y5N ONE (21:11)
[2017-01-16] MEDS: ATORVASTATIN CA 20 MG TABLET (FP) PO SCH (21:32)
[2017-01-16] MEDS: NORTRIPTYLINE HCL 10 MG CAPSULE PO SCH (21:33)
[2017-01-17] MEDS: HEPARIN INFUSION - 500 ML IVPB SCH ×3 (02:54→20:23)
[2017-01-17] MEDS: NYSTATIN/TRIAMCINOLONE TOPICAL CREAM 15 GM TUBE TP SCH ×3 (07:59→23:09)
[2017-01-17 08:32] LABS: MCH 32.6 pg (25.7-33.7); MCHC 33.6 g/dl (32.0-35.9); MEAN CELL VOLUME 97.2 fl (80-96); MEAN PLT VOLUME 9.2 fl (7.5-11.1); PLATELET COUNT 160 K/MM3 (134-434); RDW 13.9 % (11.9-15.9); WHITE BLOOD COUNT 7.4 K/mm3 (4.0-10.0)
[2017-01-17 08:49] LABS: ALBUMIN 3.8 g/dl (3.4-5.0); ALK PHOS 101 U/L (45-117); ANION GAP 5 (8-16); BILIRUBIN,TOTAL 0.6 mg/dL (0.2-1.0); CALCIUM 9.1 mg/dL (8.5-10.1); CO2 29 mmol/L (21-32); CREATININE 0.8 mg/dL (0.7-1.3); GLUCOSE,RANDOM 88 mg/dL (74-106); SGOT/AST 15 U/L (15-37); SGPT/ALT 18 U/L (12-78); TOT PROT 7.7 g/dl (6.4-8.2)
[2017-01-17 09:47] LABS: INR 1.1 (0.82-1.09); PROTHROMBIN TIME (PATIENT) 12.4 SEC (9.98-11.88)
--- NOTE | 2017-01-17 09:59 | PN ---
Progress Note, Physician History of Present Illness: seen and examined today in [facility]. no overnight events. no new complaints. - Current Medication List Current Medications: Active Medications Acetaminophen (Tylenol -) 325 mg PO Q6H PRN PRN Reason: PAIN SCALE 6-10 Stop: 01/18/17 11:07 Amlodipine Besylate (Norvasc -) 2.5 mg PO BID [facility] Last Admin: 01/16/17 21:33 Dose: 2.5 mg Atorvastatin Calcium (Lipitor -) 20 mg PO [facility] Last Admin: 01/16/17 21:32 Dose: 20 mg Fentanyl (Sublimaze Injection -) 50 mcg IVPUSH [id number] PRN PRN Reason: PAIN Stop: 01/18/17 12:08 Heparin Sodium (Porcine) (Heparin -) 1,000 unit IVPUSH PRN PRN PRN Reason: Heparin Last Admin: 01/14/17 19:38 Dose: 1,000 unit Heparin Sodium (Porcine) (Heparin -) 5,000 unit IVPUSH PRN PRN PRN Reason: Heparin Last Admin: 01/15/17 23:18 Dose: 5,000 unit Heparin Sodium/Dextrose (Heparin Infusion -) 500 mls @ 16 mls/hr IVPB TITR DIANE ; 800 UNITS/HR PRN Reason: Protocol Last Admin: 01/17/17 07:59 Dose: Not Given Levetiracetam (Keppra -) 500 mg PO BID [facility] Last Admin: 01/16/17 21:32 Dose: 500 mg Nortriptyline HCl (Pamelor -) 10 mg PO [facility] Last Admin: 01/16/17 21:33 Dose: 10 mg Nystatin/Triamcinolone Acetonide (Mycolog Ii Cream -) 1 applic TP BID [facility] Last Admin: 01/17/17 07:59 Dose: Not Given Oxycodone HCl (Roxicodone -) 5 mg PO Q6H PRN PRN Reason: PAIN SCALE 6-10 - Objective Vital Signs: Vital Signs Temperature 98.4 F 01/17/17 06:00 Pulse Rate 80 01/17/17 06:00 Respiratory Rate 20 01/17/17 06:00 Blood Pressure 135/69 01/17/17 06:00 O2 Sat by Pulse Oximetry (%) 100 01/16/17 21:00 Constitutional: Yes: No Distress, Calm Eyes: Yes: Conjunctiva Clear, EOM Intact HENT: Yes: Atraumatic, Normocephalic Neck: Yes: Supple, Trachea Midline Cardiovascular: Yes: Regular Rate and Rhythm, Murmur, S1, S2, Other (mechanical valve sound heard). No: Bradycardia, Tachycardia, Pulse Irregular, Bruit, JVD, Gallop, Rub, S3, S4, Varicosities Respiratory: Yes: Regular, CTA Bilaterally. No: Rales, Rhonchi, Wheezes Gastrointestinal: Yes: Normal Bowel Sounds, Soft. No: Distention, Tenderness Musculoskeletal: Yes: WNL Extremities: Yes: WNL Edema: No Peripheral Pulses WNL: Yes Peripheral Pulses: Left Doralis Pedis: 2+, Right Dorsalis Pedis: 2+ Neurological: Yes: Alert, Oriented Psychiatric: Yes: Alert, Oriented Labs: CBC, BMP 01/17/17 07:00 01/17/17 07:00 INR, PTT INR 1.07 (0.82-1.09) 01/16/17 07:00 - ....Imaging Chest X-ray: Report Reviewed, Image Reviewed EKG: Report Reviewed, Image Reviewed Other: Report Reviewed, Image Reviewed Assessment/Plan 66M w/ h/p Reop AVR (mechanical, on AC), ascending aortic aneurysm graft, CVA, PPM ([facility]) admitted for biopsy groin mass. [facility] interrogation: Patient is at [facility]BI - elective battery replacement interval, should have battery change in next 3 months DDD at base rate 80bpm 99% V-paced, PACEMAKER DEPENDANT Normal device function. REC: Pt tolerated procedure well from a cardiac standpoint, no issues with PPM Patient is aware that battery is at ABBI and has already contacted his primary plastic boat buffer Wallace Beck MD. We have also d/w Dr. Beck. Cont coumadin with heparin gtt as bridge until INR 2-3 INR yesterday 1.07, todays INR pending
[2017-01-17] MEDS: amLODIPine BESYLATE 2.5 MG TABLET (FP) PO SCH ×2 (10:02→23:10)
[2017-01-17] MEDS: levETIRAcetam 500 MG TABLET (FP) PO SCH ×2 (10:02→23:09)
--- NOTE | 2017-01-17 17:46 | PN ---
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 - Current Medication List Current Medications: Active Medications Acetaminophen (Tylenol -) 325 mg PO Q6H PRN PRN Reason: PAIN SCALE 6-10 Stop: 01/18/17 11:07 Amlodipine Besylate (Norvasc -) 2.5 mg PO BID [facility] Last Admin: 01/17/17 10:02 Dose: 2.5 mg Atorvastatin Calcium (Lipitor -) 20 mg PO HS [facility] Last Admin: 01/16/17 21:32 Dose: 20 mg Heparin Sodium (Porcine) (Heparin -) 1,000 unit IVPUSH PRN PRN PRN Reason: Heparin Last Admin: 01/14/17 19:38 Dose: 1,000 unit Heparin Sodium (Porcine) (Heparin -) 5,000 unit IVPUSH PRN PRN PRN Reason: Heparin Last Admin: 01/15/17 23:18 Dose: 5,000 unit Heparin Sodium/Dextrose (Heparin Infusion -) 500 mls @ 16 mls/hr IVPB TITR DIANE ; 800 UNITS/HR PRN Reason: Protocol Last Admin: 01/17/17 07:59 Dose: Not Given Levetiracetam (Keppra -) 500 mg PO BID [facility] Last Admin: 01/17/17 10:02 Dose: 500 mg Nortriptyline HCl (Pamelor -) [address] [facility] Last Admin: 01/16/17 21:33 Dose: 10 mg Nystatin/Triamcinolone Acetonide (Mycolog Ii Cream -) 1 applic TP BID [facility] Last Admin: 01/17/17 10:03 Dose: 1 applic Oxycodone HCl (Roxicodone -) 5 mg PO Q6H PRN PRN Reason: PAIN SCALE 6-10 Warfarin Sodium (Coumadin -) 10 mg PO ONCE@1800 ONE Stop: 01/17/17 18:01 Last Admin: 01/17/17 17:22 Dose: 10 mg - Objective Vital Signs: Vital Signs Temperature 98.2 F 01/17/17 15:53 Pulse Rate 80 01/17/17 15:53 Respiratory Rate 18 01/17/17 15:53 Blood Pressure 118/79 01/17/17 15:53 O2 Sat by Pulse Oximetry (%) 97 01/17/17 09:00 Cardiovascular: Yes: S1, S2 Respiratory: Yes: Regular, CTA Bilaterally Gastrointestinal: Yes: Normal Bowel Sounds, Soft Labs: CBC, BMP 01/17/17 07:00 01/17/17 07:00 INR, PTT INR 1.10 (0.82-1.09) 01/17/17 08:50 Problem List - Problems (1) H/O heart valve replacement with bioprosthetic valve Assessment/Plan: CONTINUE WITH HEPARIN UNTIL INR THERAPEUTIC INR, PTT INR 1.10 (0.82-1.09) 01/17/17 08:50 Code(s): Z95.3 - PRESENCE OF XENOGENIC HEART VALVE (2) Left groin mass Assessment/Plan: S/P EXCISION MASS PER SURGERY Code(s): R19.09 - OTHER INTRA-ABDOMINAL AND PELVIC SWELLING, MASS AND LUMP
[2017-01-17] MEDS ORDERED: WARFARIN NA 10 MG TABLET (FP) PO ONE (18:00)
--- NOTE | 2017-01-17 21:23 | PN ---
Progress Note (short form) - Note Progress Note: Seen yesterday No pain AVSS Wound clean, dressing in place H/H stable WBC WNL Back on heparin drip Restarted on coumadin Cleared for discharge from surgical perspective once INR is therapeutic Problem List - Problems (1) Left groin mass Code(s): R19.09 - OTHER INTRA-ABDOMINAL AND PELVIC SWELLING, MASS AND LUMP
[2017-01-17] MEDS: ATORVASTATIN CA 20 MG TABLET (FP) PO SCH (23:09)
[2017-01-17] MEDS: NORTRIPTYLINE HCL 10 MG CAPSULE PO SCH (23:10)
[2017-01-18 08:13] LABS: MCH 32.3 pg (25.7-33.7); MCHC 33.3 g/dl (32.0-35.9); MEAN PLT VOLUME 8.9 fl (7.5-11.1); PLATELET COUNT 190 K/MM3 (134-434); RDW 14.1 % (11.9-15.9); WHITE BLOOD COUNT 7.3 K/mm3 (4.0-10.0)
[2017-01-18 08:30] LABS: INR 1.06 (0.82-1.09)
[2017-01-18] MEDS: NYSTATIN/TRIAMCINOLONE TOPICAL CREAM 15 GM TUBE TP SCH ×2 (09:14→23:20)
[2017-01-18] MEDS: amLODIPine BESYLATE 2.5 MG TABLET (FP) PO SCH ×2 (09:14→21:01)
[2017-01-18] MEDS: levETIRAcetam 500 MG TABLET (FP) PO SCH ×2 (09:14→21:01)
--- NOTE | 2017-01-18 11:12 | PN ---
Progress Note, Physician History of Present Illness: seen and examined today in [facility]. no overnight events. frustrated about INR not rising and need to stay in the hospital. no new complaints. - Current Medication List Current Medications: Active Medications Amlodipine Besylate (Norvasc -) 2.5 mg PO BID [facility] Last Admin: 01/18/17 09:14 Dose: 2.5 mg Atorvastatin Calcium (Lipitor -) 20 mg PO HS [facility] Last Admin: 01/17/17 23:09 Dose: 20 mg Heparin Sodium (Porcine) (Heparin -) 1,000 unit IVPUSH PRN PRN PRN Reason: Heparin Last Admin: 01/14/17 19:38 Dose: 1,000 unit Heparin Sodium (Porcine) (Heparin -) 5,000 unit IVPUSH PRN PRN PRN Reason: Heparin Last Admin: 01/15/17 23:18 Dose: 5,000 unit Heparin Sodium/Dextrose (Heparin Infusion -) 500 mls @ 16 mls/hr IVPB TITR DIANE ; 800 UNITS/HR PRN Reason: Protocol Last Admin: 01/17/17 20:23 Dose: Not Given Levetiracetam (Keppra -) 500 mg PO BID [facility] Last Admin: 01/18/17 09:14 Dose: 500 mg Nortriptyline HCl (Pamelor -) 10 mg PO [facility] Last Admin: 01/17/17 23:10 Dose: 10 mg Nystatin/Triamcinolone Acetonide (Mycolog Ii Cream -) 1 applic TP BID [facility] Last Admin: 01/18/17 09:14 Dose: 1 applic Warfarin Sodium (Coumadin -) 10 mg PO ONCE@1800 ONE Stop: 01/18/17 18:01 - Objective Vital Signs: Vital Signs Temperature 98.4 F 01/18/17 10:00 Pulse Rate 81 01/18/17 10:00 Respiratory Rate 18 01/18/17 10:00 Blood Pressure 127/76 01/18/17 10:00 O2 Sat by Pulse Oximetry (%) 97 01/17/17 21:00 Constitutional: Yes: No Distress, Calm Eyes: Yes: Conjunctiva Clear, EOM Intact, PERRL HENT: Yes: Atraumatic, Normocephalic Neck: Yes: Supple, Trachea Midline Cardiovascular: Yes: Regular Rate and Rhythm, Murmur, S1, S2. No: Bradycardia, Tachycardia, Pulse Irregular, Bruit, JVD, Gallop, Rub, S3, S4, Varicosities Respiratory: Yes: Regular, CTA Bilaterally. No: Rales, Rhonchi, Wheezes Gastrointestinal: Yes: Normal Bowel Sounds, Soft. No: Distention, Tenderness Extremities: Yes: WNL Edema: No Peripheral Pulses WNL: Yes Peripheral Pulses: Left Doralis Pedis: 2+, Right Dorsalis Pedis: 2+ Integumentary: Yes: WNL Neurological: Yes: Alert, Oriented Psychiatric: Yes: Alert, Oriented Labs: CBC, BMP 01/18/17 07:00 01/17/17 07:00 INR, PTT INR 1.06 (0.82-1.09) 01/18/17 07:54 - ....Imaging Chest X-ray: Report Reviewed, Image Reviewed EKG: Report Reviewed, Image Reviewed Other: Report Reviewed, Image Reviewed Assessment/Plan 66M w/ h/p Reop AVR (mechanical, on AC), ascending aortic aneurysm graft, CVA, PPM ([facility]) admitted for biopsy groin mass. [facility] interrogation: Patient is at ABBI - elective battery replacement interval, should have battery change in next 3 months DDD at base rate 80bpm 99% V-paced, PACEMAKER DEPENDANT Normal device function. REC: Pt tolerated procedure well from a cardiac standpoint, no issues with PPM Patient is aware that battery is at ABBI and has already contacted his primary escrow agent Wallace Beck MD. We have also d/w Dr. Beck. Cont coumadin with heparin gtt as bridge until INR 2-3 INR still unchanged. First dose of Warfarin 10mg was given 01/16, then 10mg 01/17 , and planned for 10mg tonight. His home dose is 7.5mg daily. Expect a significant rise in INR by tomorrow. Once INR close to 2 pt would be acceptable for discharge from a cardiac standpoint
--- NOTE | 2017-01-18 15:31 | PN ---
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 - Current Medication List Current Medications: Active Medications Amlodipine Besylate (Norvasc -) 2.5 mg PO BID [facility] Last Admin: 01/18/17 09:14 Dose: 2.5 mg Atorvastatin Calcium (Lipitor -) 20 mg PO HS [facility] Last Admin: 01/17/17 23:09 Dose: 20 mg Heparin Sodium (Porcine) (Heparin -) 1,000 unit IVPUSH PRN PRN PRN Reason: Heparin Last Admin: 01/14/17 19:38 Dose: 1,000 unit Heparin Sodium (Porcine) (Heparin -) 5,000 unit IVPUSH PRN PRN PRN Reason: Heparin Last Admin: 01/15/17 23:18 Dose: 5,000 unit Heparin Sodium/Dextrose (Heparin Infusion -) 500 mls @ 16 mls/hr IVPB TITR DI[facility] ; 800 UNITS/HR PRN Reason: Protocol Last Admin: 01/17/17 20:23 Dose: Not Given Levetiracetam (Keppra -) 500 mg PO BID [facility] Last Admin: 01/18/17 09:14 Dose: 500 mg Nortriptyline HCl (Pamelor -) 10 mg PO HS [facility] Last Admin: 01/17/17 23:10 Dose: 10 mg Nystatin/Triamcinolone Acetonide (Mycolog Ii Cream -) 1 applic TP BID [facility] Last Admin: 01/18/17 09:14 Dose: 1 applic Warfarin Sodium (Coumadin -) 10 mg PO ONCE@1800 ONE Stop: 01/18/17 18:01 - Objective Vital Signs: Vital Signs Temperature 98.5 F 01/18/17 15:15 Pulse Rate 81 01/18/17 15:15 Respiratory Rate 18 01/18/17 15:15 Blood Pressure 121/76 01/18/17 15:15 O2 Sat by Pulse Oximetry (%) 97 01/18/17 09:00 Cardiovascular: Yes: Murmur, S1, S2 Respiratory: Yes: Regular, CTA Bilaterally Wound/Incision: No: Draining, Bleeding Labs: CBC, BMP 01/18/17 07:00 01/17/17 07:00 INR, PTT INR 1.06 (0.82-1.09) 01/18/17 07:54 Problem List - Problems (1) H/O heart valve replacement with bioprosthetic valve Assessment/Plan: CONTINUE WITH HEPARIN UNTIL INR THERAPEUTIC INR, PTT INR 1.06 (0.82-1.09) 01/18/17 07:54 COUMADIN 15 MG X1 Code(s): Z95.3 - PRESENCE OF XENOGENIC HEART VALVE (2) Left groin mass Assessment/Plan: S/P EXCISION MASS PER SURGERY Code(s): R19.09 - OTHER INTRA-ABDOMINAL AND PELVIC SWELLING, MASS AND LUMP (3) HTN (hypertension) Assessment/Plan: ON AMLODIPINE Code(s): I10 - ESSENTIAL (PRIMARY) HYPERTENSION
[2017-01-18] MEDS ORDERED: WARFARIN NA 5 MG TABLET (UD) PO ONE (18:00)
[2017-01-18] MEDS ORDERED: WARFARIN NA 10 MG TABLET (FP) PO ONE (18:00)
[2017-01-18] MEDS: HEPARIN INFUSION - 500 ML IVPB SCH (20:03)
[2017-01-18] MEDS: ATORVASTATIN CA 20 MG TABLET (FP) PO SCH (21:01)
[2017-01-18] MEDS: NORTRIPTYLINE HCL 10 MG CAPSULE PO SCH (21:01)
[2017-01-19 07:54] LABS: INR 1.16 (0.82-1.09); PROTHROMBIN TIME (PATIENT) 13.1 SEC (9.98-11.88)
--- NOTE | 2017-01-19 09:24 | PN ---
Progress Note (short form) - Note Progress Note: ID consult dictated imp/reccd 66 year man pmh prosthetic AVR and aortic graft repain/PPM admitted for elective resection of Left groin mass on 01/12 he had excisional biopsy of the left groin mass on 01/15-unclear if entire mass was excised asked to see for operative culture +MRSA from broth no fevers or chills groin wound is dry awaiting pathology prior MRSA of calf wound 2013, nares culture positive 01/14/17 given prosthetic devices would suggest blood cultures and vancomycin until final pathology and microbiology are back does not appear to have a systemic infection and locally wound appears without erythema continue contact isolation at this time Problem List - Problems (1) MRSA (methicillin resistant staph aureus) culture positive Code(s): Z22.322 - CARRIER OR SUSPECTED CARRIER OF METHICILLIN RESIS STAPH (2) Left groin mass Code(s): R19.09 - OTHER INTRA-ABDOMINAL AND PELVIC SWELLING, MASS AND LUMP (3) History of prosthetic aortic valve Code(s): Z95.2 - PRESENCE OF PROSTHETIC HEART VALVE (4) Pacemaker Code(s): Z95.0 - PRESENCE OF CARDIAC PACEMAKER
[2017-01-19] MEDS: amLODIPine BESYLATE 2.5 MG TABLET (FP) PO SCH ×2 (10:18→22:45)
[2017-01-19] MEDS: levETIRAcetam 500 MG TABLET (FP) PO SCH ×2 (10:18→22:45)
[2017-01-19] MEDS: HEPARIN INFUSION - 500 ML IVPB SCH ×2 (10:20→22:34)
[2017-01-19] MEDS: NYSTATIN/TRIAMCINOLONE TOPICAL CREAM 15 GM TUBE TP SCH ×2 (10:24→22:45)
--- NOTE | 2017-01-19 10:55 | CONS ---
DATE OF CONSULTATION: REQUESTING PHYSICIAN: Viridiana Monet MD HISTORY: This is a 66-year-old man with complicated past medical history. He has a history of a reoperative aortic valve. Originally, he had a bioprosthetic valve that was converted to a mechanical valve. 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 He has a permanent pacemaker. He has had a CVA in the past. He was in wound care for open ulcers on his leg. He underwent laser treatment with good results. The ulcers have healed over. He was noted to have a left groin mass and was referred to surgery. He was admitted on the for elective left groin mass biopsy. He was placed on heparin due to his mechanical ventilation. On the , he underwent an excisional biopsy of this mass. I am asked to see him because the biopsy results were sent to microbiology, and his tissue culture is growing presumptive MRSA. On speaking with the patient, he denies any fevers or chills. He denies any nausea or vomiting. He has, otherwise, felt well. There is no history of prior MRSA bacteremia that we know of. He reports looking at the surgical note. There is no mention of fluctuance. It seems like a solid mass that was biopsied. I have a call in to the surgeon to discuss. It also unclear if the entire mass was resected. Pathology is pending. 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 He has a permanent pacemaker as well. He has a past medical history of prior CVA, hypertension, asbestosis, hyperlipidemia. PAST SURGICAL HISTORY: As stated. ALLERGIES: No known drug allergies. FAMILY HISTORY: Noncontributory. SOCIAL HISTORY: He is retired. He lives with his who is disabled and has MS. There is no history of any cigarette or substance use. MEDICATIONS: As an outpatient include Coumadin, Pamelor, Keppra, Lipitor, asthma, Norvasc, Percocet, and Colace. REVIEW OF SYSTEMS: He is currently feeling well. Denies fevers, chills, nausea, vomiting, diarrhea, dysuria. Wants to go home. PHYSICAL EXAMINATION: General: He is awake and alert. Vital Signs: Temperature 98.1, pulse 80, blood pressure 135/81, respiratory rate 18. HEENT: He is normocephalic. His eyes are anicteric. Neck: Supple. Lungs: Clear to auscultation. Heart: Regular rate and rhythm. Chest Wall: He has a well-healed median sternotomy scar. There is no sign of erythema at his permanent pacemaker site. Abdomen: Soft and nontender. Extremities: His lower extremities have some venostasis changes. There is no erythema. There is no edema. Skin: He has no open skin sores. His left groin has Steri-Strips intact. There is no purulence noted on the gauze. The area appears dry. LABORATORIES: Notable for a white count of 7.3, hemoglobin 12.7, platelets 190. INR 1.16. BUN 23, creatinine 0.8. He had his nares cultured on admission on January 13 that was positive for MRSA. He had a wound culture from 2013 with MRSA and now the groin tissue broth is growing MRSA. Primary plates appear negative. IMAGING: Chest x-ray done on admission shows cardiomegaly, left-sided pacemaker, and no infiltrate. In summary, this is a 66-year-old man with a prosthetic AVR and aortic graft repair, permanent pacemaker admitted for elective resection of a left groin mass now with operative culture positive for MRSA. He has no fevers or chills. The groin wound is dry. We are awaiting pathology and further results. He has a prior history of MRSA of the calf wound, and the nares cultures are positive. Given the prosthetic devices, would suggest blood cultures and vancomycin until final pathology and microbiology are back. He does not appear to have a systemic infection. I do not think we will need to treat him for long. Locally, the wound does appear without erythema. Would continue contact isolation at this time. Further recommendations to follow. Tacho [id number]
--- NOTE | 2017-01-19 11:29 | PN ---
Progress Note, Physician History of Present Illness: seen and examined today in nad. no overnight events. - Current Medication List Current Medications: Active Medications Amlodipine Besylate (Norvasc -) 2.5 mg PO BID [facility] Last Admin: 01/19/17 10:18 Dose: 2.5 mg Atorvastatin Calcium (Lipitor -) 20 mg PO HS [facility] Last Admin: 01/18/17 21:01 Dose: 20 mg Heparin Sodium (Porcine) (Heparin -) 1,000 unit IVPUSH PRN PRN PRN Reason: Heparin Last Admin: 01/14/17 19:38 Dose: 1,000 unit Heparin Sodium (Porcine) (Heparin -) 5,000 unit IVPUSH PRN PRN PRN Reason: Heparin Last Admin: 01/15/17 23:18 Dose: 5,000 unit Heparin Sodium/Dextrose (Heparin Infusion -) 500 mls @ 16 mls/hr IVPB TITR DI[facility] ; 800 UNITS/HR PRN Reason: Protocol Last Admin: 01/19/17 10:20 Dose: 27 mls/hr Vancomycin HCl 1,000 mg/ (Dextrose) 250 mls @ 166.667 mls/hr IVPB BID [facility] PRN Reason: Protocol Levetiracetam (Keppra -) 500 mg PO BID [facility] Last Admin: 01/19/17 10:18 Dose: 500 mg Nortriptyline HCl (Pamelor -) 10 mg PO HS [facility] Last Admin: 01/18/17 21:01 Dose: 10 mg Nystatin/Triamcinolone Acetonide (Mycolog Ii Cream -) 1 applic TP BID [facility] Last Admin: 01/19/17 10:24 Dose: 1 applic - Objective Vital Signs: Vital Signs Temperature 98.1 F 01/19/17 06:00 Pulse Rate 80 01/19/17 06:00 Respiratory Rate 18 01/19/17 06:00 Blood Pressure 135/81 01/19/17 06:00 O2 Sat by Pulse Oximetry (%) 97 01/18/17 21:00 Constitutional: Yes: No Distress, Calm Eyes: Yes: Conjunctiva Clear, EOM Intact, PERRL HENT: Yes: Atraumatic, Normocephalic Neck: Yes: Supple, Trachea Midline Cardiovascular: Yes: Regular Rate and Rhythm, Murmur, S1, S2. No: Bradycardia, Tachycardia, Pulse Irregular, Bruit, JVD, Gallop, Rub, S3, S4, Varicosities Respiratory: Yes: Regular, CTA Bilaterally. No: Rales, Rhonchi, Wheezes Gastrointestinal: Yes: Normal Bowel Sounds, Soft. No: Distention, Tenderness Extremities: Yes: WNL Edema: No Peripheral Pulses WNL: Yes Neurological: Yes: Alert, Oriented Psychiatric: Yes: Alert, Oriented Labs: CBC, BMP 01/18/17 07:00 01/17/17 07:00 INR, PTT INR 1.16 (0.82-1.09) H 01/19/17 07:00 - ....Imaging Chest X-ray: Report Reviewed, Image Reviewed EKG: Report Reviewed, Image Reviewed Other: Report Reviewed, Image Reviewed Assessment/Plan 66M w/ h/p Reop AVR (mechanical, on AC), ascending aortic aneurysm graft, CVA, PPM ([facility]) admitted for biopsy groin mass. [facility] interrogation: Patient is at [facility] - elective battery replacement interval, should have battery change in next 3 months DDD at base rate 80bpm 99% V-paced, PACEMAKER DEPENDANT Normal device function. REC: Biopsy culture grew MRSA Pt to be started on Vancomycin F/up blood cultures that are being sent Patient is aware that battery is at [facility] and will follow up with his primary java developer Wallace Beck on discharge. Cont coumadin with heparin gtt as bridge until INR 2-3
[2017-01-19] MEDS: VANCOMYCIN 1,000 MG in DEXTROSE 5%-WATER - 250 ML IVPB SCH ×2 (12:13→22:45)
--- NOTE | 2017-01-19 15:58 | PN ---
Progress Note, Physician Chief Complaint: AWAKE ALERT BEDSIDE AWAITING PATHOLOGY OF LOWER EXTREMITY MASS - Current Medication List Current Medications: Active Medications Amlodipine Besylate (Norvasc -) 2.5 mg PO BID [facility] Last Admin: 01/19/17 10:18 Dose: 2.5 mg Atorvastatin Calcium (Lipitor -) 20 mg PO HS [facility] Last Admin: 01/18/17 21:01 Dose: 20 mg Heparin Sodium (Porcine) (Heparin -) 1,000 unit IVPUSH PRN PRN PRN Reason: Heparin Last Admin: 01/14/17 19:38 Dose: 1,000 unit Heparin Sodium (Porcine) (Heparin -) 5,000 unit IVPUSH PRN PRN PRN Reason: Heparin Last Admin: 01/15/17 23:18 Dose: 5,000 unit Heparin Sodium/Dextrose (Heparin Infusion -) 500 mls @ 16 mls/hr IVPB TITR DIANE ; 800 UNITS/HR PRN Reason: Protocol Last Admin: 01/19/17 10:20 Dose: 27 mls/hr Vancomycin HCl 1,000 mg/ (Dextrose) 250 mls @ 166.667 mls/hr IVPB BID [facility] PRN Reason: Protocol Last Admin: 01/19/17 12:13 Dose: 166.667 mls/hr Levetiracetam (Keppra -) 500 mg PO BID [facility] Last Admin: 01/19/17 10:18 Dose: 500 mg Nortriptyline HCl (Pamelor -) 10 mg PO HS [facility] Last Admin: 01/18/17 21:01 Dose: 10 mg Nystatin/Triamcinolone Acetonide (Mycolog Ii Cream -) 1 applic TP BID [facility] Last Admin: 01/19/17 10:24 Dose: 1 applic - Objective Vital Signs: Vital Signs Temperature 99 F 01/19/17 14:24 Pulse Rate 80 01/19/17 14:24 Respiratory Rate 20 01/19/17 14:24 Blood Pressure 118/65 01/19/17 14:24 O2 Sat by Pulse Oximetry (%) 97 01/19/17 09:00 Constitutional: Yes: Mild Distress Eyes: Yes: WNL HENT: Yes: WNL Neck: Yes: WNL Cardiovascular: Yes: Murmur Respiratory: Yes: WNL Gastrointestinal: Yes: WNL Genitourinary: Yes: WNL Musculoskeletal: Yes: Muscle Weakness Extremities: Yes: WNL Edema: Yes Peripheral Pulses WNL: Yes Integumentary: Yes: Rash, Venous Stasis Changes Wound/Incision: Yes: Clean/Dry Neurological: Yes: Pre-Existing Deficit ...Motor Strength: LLE, RLE Psychiatric: Yes: WNL Labs: CBC, BMP 01/18/17 07:00 01/17/17 07:00 INR, PTT INR 1.16 (0.82-1.09) H 01/19/17 07:00 Problem List - Problems (1) Mass Code(s): R22.9 - LOCALIZED SWELLING, MASS AND LUMP, UNSPECIFIED (2) Venous (peripheral) insufficiency Code(s): I87.2 - VENOUS INSUFFICIENCY (CHRONIC) (PERIPHERAL) (3) H/O heart valve replacement with bioprosthetic valve Code(s): Z95.3 - PRESENCE OF XENOGENIC HEART VALVE (4) Pacemaker Code(s): Z95.0 - PRESENCE OF CARDIAC PACEMAKER (5) Old cerebrovascular accident (CVA) without late effect Code(s): Z86.73 - PRSNL HX OF TIA (TIA), AND CEREB INFRC W/O RESID DEFICITS (6) Lymphoma Code(s): C85.90 - NON-HODGKIN LYMPHOMA, UNSPECIFIED, UNSPECIFIED SITE Qualifiers: Lymphoma type: unspecified type Lymphoma site: lower extremity Qualified Code(s): C85.95 - Non-Hodgkin lymphoma, unspecified, lymph nodes of inguinal region and lower limb; C85.95 - Non-Hodgkin lymphoma, unspecified, lymph nodes of inguinal region and lower limb; C85.95 - Non-Hodgkin lymphoma, unspecified, lymph nodes of inguinal region and lower limb Assessment/Plan DISCUSSED WITH DR LOPEZ AFTER I MET WITH [facility] RETURNED + LYMPHOMA ONCOLOGY EVAL CONSULTED HEPARIN IV AND BRIDGE TO COUMADIN FOR CARDIAC VALVE PROSTHESIS PT EVAL AWAIT PLAN FROM DR ZARAGOZA
[2017-01-19] MEDS ORDERED: WARFARIN NA 10 MG TABLET (FP) PO ONE (18:30)
--- NOTE | 2017-01-19 20:46 | PN ---
Progress Note (short form) - Note Progress Note: No acute events No pain On diet Vital Signs Period Temp Pulse Resp BP Sys/Lugo Pulse Ox Last 24 Hr 98.1 F-99 F 80-82 16-20 109-135/64-81 97-97 Wound clen, dry, intact CBC, BMP 01/18/17 07:00 01/17/17 07:00 Called by pathology- flow cytometry showed lymphoma Oncology consulted Problem List - Problems (1) Left groin mass Code(s): R19.09 - OTHER INTRA-ABDOMINAL AND PELVIC SWELLING, MASS AND LUMP
[2017-01-19] MEDS: ATORVASTATIN CA 20 MG TABLET (FP) PO SCH (22:45)
[2017-01-19] MEDS: NORTRIPTYLINE HCL 10 MG CAPSULE PO SCH (22:45)
[2017-01-20] MEDS: HEPARIN INFUSION - 500 ML IVPB SCH ×2 (04:47→23:31)
[2017-01-20 08:36] LABS: INR 1.65 (0.82-1.09); PROTHROMBIN TIME (PATIENT) 18.6 SEC (9.98-11.88)
--- NOTE | 2017-01-20 09:51 | PN ---
Progress Note, Physician Chief Complaint: feels well prelim path: lymphoma - Current Medication List Current Medications: Active Medications Amlodipine Besylate (Norvasc -) 2.5 mg PO BID [facility] Last Admin: 01/19/17 22:45 Dose: 2.5 mg Atorvastatin Calcium (Lipitor -) 20 mg PO HS [facility] Last Admin: 01/19/17 22:45 Dose: 20 mg Heparin Sodium (Porcine) (Heparin -) 1,000 unit IVPUSH PRN PRN PRN Reason: Heparin Last Admin: 01/14/17 19:38 Dose: 1,000 unit Heparin Sodium (Porcine) (Heparin -) 5,000 unit IVPUSH PRN PRN PRN Reason: Heparin Last Admin: 01/15/17 23:18 Dose: 5,000 unit Heparin Sodium/Dextrose (Heparin Infusion -) 500 mls @ 16 mls/hr IVPB TITR DI[facility] ; 800 UNITS/HR PRN Reason: Protocol Last Admin: 01/20/17 04:47 Dose: 27 mls/hr Vancomycin HCl 1,000 mg/ (Dextrose) 250 mls @ 166.667 mls/hr IVPB BID [facility] PRN Reason: Protocol Last Admin: 01/19/17 22:45 Dose: 166.667 mls/hr Levetiracetam (Keppra -) 500 mg PO BID [facility] Last Admin: 01/19/17 22:45 Dose: 500 mg Nortriptyline HCl (Pamelor -) 10 mg PO HS [facility] Last Admin: 01/19/17 22:45 Dose: 10 mg Nystatin/Triamcinolone Acetonide (Mycolog Ii Cream -) 1 applic TP BID [facility] Last Admin: 01/19/17 22:45 Dose: Not Given - Objective Vital Signs: Vital Signs Temperature 98.4 F 01/20/17 06:00 Pulse Rate 80 01/20/17 06:00 Respiratory Rate 24 01/20/17 06:00 Blood Pressure 116/72 01/20/17 06:00 O2 Sat by Pulse Oximetry (%) 99 01/19/17 21:00 Constitutional: Yes: No Distress Eyes: Yes: Conjunctiva Clear Cardiovascular: Yes: Regular Rate and Rhythm Respiratory: Yes: CTA Bilaterally Gastrointestinal: Yes: Soft Edema: No Neurological: Yes: Alert, Oriented ...Motor Strength: WNL Labs: CBC, BMP 01/18/17 07:00 01/17/17 07:00 INR, PTT INR 1.65 (0.82-1.09) H D 01/20/17 06:30 Laboratory Tests 01/20/17 01/20/17 06:30 06:30 INR 1.65 H D PTT (Actin FS) 61.7 H Assessment/Plan Assessment/Plan 66M w/ h/p Reop AVR (mechanical, on AC), ascending aortic aneurysm graft, CVA, PPM ([facility]) admitted for biopsy groin mass. [facility] interrogation: Patient is at [facility] - elective battery replacement interval, should have battery change in next 3 months DDD at base rate 80bpm 99% V-paced, PACEMAKER DEPENDANT Normal device function. REC: Biopsy culture grew MRSA, prelim path c/w lymphoma Abx as per PMD Patient is aware that battery is at [facility] and will follow up with his primary hall manager on discharge. Cont coumadin with heparin gtt as bridge until INR 2-3
--- NOTE | 2017-01-20 10:10 | PN ---
Progress Note (short form) - Note Progress Note: resting comfortably awaiting patholog results, INR still subtherapeutic no fevers oob in chair Vital Signs Period Temp Pulse Resp BP Sys/Lugo Pulse Ox Last 24 Hr 98.0 F-99 F 80-81 20-24 116-130/55-81 99 CBC, BMP 01/18/17 07:00 01/17/17 07:00 a/p 66 year man pmh prosthetic AVR and aortic graft repain/PPM admitted for elective resection of Left groin mass on 01/12 he had excisional biopsy of the left groin mass on 01/15-unclear if entire mass was excised asked to see for operative culture +MRSA from broth no fevers or chills groin wound is dry awaiting pathology continue vancomycin, suspect this is skin contamination as MRSA in broth culture only if blood cultures are negative , will switch to short course of bactrim Problem List - Problems (1) MRSA (methicillin resistant staph aureus) culture positive Code(s): Z22.322 - CARRIER OR SUSPECTED CARRIER OF METHICILLIN RESIS STAPH (2) Left groin mass Code(s): R19.09 - OTHER INTRA-ABDOMINAL AND PELVIC SWELLING, MASS AND LUMP (3) History of prosthetic aortic valve Code(s): Z95.2 - PRESENCE OF PROSTHETIC HEART VALVE (4) Pacemaker Code(s): Z95.0 - PRESENCE OF CARDIAC PACEMAKER
[2017-01-20] MEDS: VANCOMYCIN 1,000 MG in DEXTROSE 5%-WATER - 250 ML IVPB SCH ×2 (10:25→23:31)
[2017-01-20] MEDS: levETIRAcetam 500 MG TABLET (FP) PO SCH ×2 (10:25→23:32)
[2017-01-20] MEDS: NYSTATIN/TRIAMCINOLONE TOPICAL CREAM 15 GM TUBE TP SCH ×2 (10:25→23:33)
[2017-01-20] MEDS: amLODIPine BESYLATE 2.5 MG TABLET (FP) PO SCH ×2 (10:25→23:33)
[2017-01-20 13:19] LABS: MCH 32.1 pg (25.7-33.7); MCHC 33.2 g/dl (32.0-35.9); MEAN CELL VOLUME 96.8 fl (80-96); MEAN PLT VOLUME 8.8 fl (7.5-11.1); PLATELET COUNT 210 K/MM3 (134-434); WHITE BLOOD COUNT 11.1 K/mm3 (4.0-10.0)
[2017-01-20 13:42] LABS: ALBUMIN 4.1 g/dl (3.4-5.0); ANION GAP 12 (8-16); BILIRUBIN,TOTAL 0.4 mg/dL (0.2-1.0); CO2 25 mmol/L (21-32); CREATININE 0.9 mg/dL (0.7-1.3); GLUCOSE,RANDOM 163 mg/dL (74-106); LDH 265 U/L (87-241); SGOT/AST 16 U/L (15-37); SGPT/ALT 24 U/L (12-78); TOT PROT 8.7 g/dl (6.4-8.2); URIC ACID 6.5 mg/dL (2.6-7.2)
[2017-01-20 13:43] LABS: ALK PHOS 113 U/L (45-117)
--- NOTE | 2017-01-20 14:02 | PN ---
Progress Note, Physician Chief Complaint: AWAKE ALERT I SAT DISCUSSED WITH HIM THE POSITIVE FINDINGS WITH THE PATHOLOGY REPORT THAT IT WAS + LYMPHOMA. PATIENT UNDERSTOOD AND I TOLD HIM WE WOULD NEED FURTHER WORKUP TO GET SPECIFIC RESULTS AND DIAGNOSIS. - Current Medication List Current Medications: Active Medications Amlodipine Besylate (Norvasc -) 2.5 mg PO BID [facility] Last Admin: 01/20/17 10:25 Dose: 2.5 mg Atorvastatin Calcium (Lipitor -) 20 mg PO HS [facility] Last Admin: 01/19/17 22:45 Dose: 20 mg Heparin Sodium (Porcine) (Heparin -) 1,000 unit IVPUSH PRN PRN PRN Reason: Heparin Last Admin: 01/14/17 19:38 Dose: 1,000 unit Heparin Sodium (Porcine) (Heparin -) 5,000 unit IVPUSH PRN PRN PRN Reason: Heparin Last Admin: 01/15/17 23:18 Dose: 5,000 unit Heparin Sodium/Dextrose (Heparin Infusion -) 500 mls @ 16 mls/hr IVPB TITR [facility] ; 800 UNITS/HR PRN Reason: Protocol Last Titration: 01/20/17 10:25 Dose: 1,350 units/hr Vancomycin HCl 1,000 mg/ (Dextrose) 250 mls @ 166.667 mls/hr IVPB BID [facility] PRN Reason: Protocol Last Admin: 01/20/17 10:25 Dose: 166.667 mls/hr Levetiracetam (Keppra -) 500 mg PO BID [facility] Last Admin: 01/20/17 10:25 Dose: 500 mg Nortriptyline HCl (Pamelor -) 10 mg PO HS [facility] Last Admin: 01/19/17 22:45 Dose: 10 mg Nystatin/Triamcinolone Acetonide (Mycolog Ii Cream -) 1 applic TP BID [facility] Last Admin: 01/20/17 10:25 Dose: 1 applic Warfarin Sodium (Coumadin -) 7.5 mg PO DAILY@1800 [facility] - Objective Vital Signs: Vital Signs Temperature 98.1 F 01/20/17 10:00 Pulse Rate 81 01/20/17 10:00 Respiratory Rate 18 01/20/17 10:00 Blood Pressure 111/62 01/20/17 10:00 O2 Sat by Pulse Oximetry (%) 99 01/20/17 09:00 Constitutional: Yes: Mild Distress Eyes: Yes: WNL HENT: Yes: WNL Neck: Yes: WNL Cardiovascular: Yes: Murmur Respiratory: Yes: WNL Gastrointestinal: Yes: WNL Genitourinary: Yes: WNL Musculoskeletal: Yes: WNL Extremities: Yes: WNL Edema: Yes Edema: LLE: Trace, RLE: Trace Peripheral Pulses WNL: Yes Integumentary: Yes: WNL Wound/Incision: Yes: Clean/Dry, Dressing Dry and Intact Neurological: Yes: Pre-Existing Deficit, Unsteady Gait ...Motor Strength: LLE, RLE Psychiatric: Yes: WNL Labs: CBC, BMP 01/20/17 12:40 01/20/17 12:40 INR, PTT INR 1.65 (0.82-1.09) H D 01/20/17 06:30 Problem List - Problems (1) Mass Code(s): R22.9 - LOCALIZED SWELLING, MASS AND LUMP, UNSPECIFIED (2) Venous (peripheral) insufficiency Code(s): I87.2 - VENOUS INSUFFICIENCY (CHRONIC) (PERIPHERAL) (3) H/O heart valve replacement with bioprosthetic valve Code(s): Z95.3 - PRESENCE OF XENOGENIC HEART VALVE (4) Pacemaker Code(s): Z95.0 - PRESENCE OF CARDIAC PACEMAKER (5) Old cerebrovascular accident (CVA) without late effect Code(s): Z86.73 - PRSNL HX OF TIA (TIA), AND CEREB INFRC W/O RESID DEFICITS (6) Lymphoma Code(s): C85.90 - NON-HODGKIN LYMPHOMA, UNSPECIFIED, UNSPECIFIED SITE Qualifiers: Lymphoma type: unspecified type Lymphoma site: lower extremity Qualified Code(s): C85.95 - Non-Hodgkin lymphoma, unspecified, lymph nodes of inguinal region and lower limb; C85.95 - Non-Hodgkin lymphoma, unspecified, lymph nodes of inguinal region and lower limb; C85.95 - Non-Hodgkin lymphoma, unspecified, lymph nodes of inguinal region and lower limb Assessment/Plan CT ABD / PELVIS PER ONCOLOGY WORKUP INR INCREASING STILL NOT THERAPEUTIC WILL COUMDAIN 7.5 MG TONIGHT OOB TO CHAIR AWAIT WORKUP
--- NOTE | 2017-01-20 16:55 | CONSULT ---
Consult Consult Specialty:: Oncology - History of Present Illness History of Present Illness: 66 year man with multiple cardiac co-morbidities, prosthetic AVR and aortic graft repair/PPM admitted for elective resection of Left groin mass on 01/12 he had excisional biopsy of the left groin mass on 01/15 no fevers or chills - History Source History Provided By: Patient, Medical Record - Past Medical History [employer]ITY: Yes: CVA Cardio/Vascular: Yes: AFIB, HTN, Other (atrial valve prosthesis) - Alcohol/Substance Use Hx Alcohol Use: Yes (2 BEERS/DAY) - Smoking History Smoking history: Former smoker Have you smoked in the past 12 months: Yes Aproximately how many cigarettes per day: 8 If you are a former smoker, when did you quit?: years ago Home Medications - Allergies Allergies/Adverse Reactions: Allergies Allergy/AdvReac Type Severity Reaction Status Date / Time No Known Drug Allergies Allergy Verified 08/30/14 06:54 - Home Medications Home Medications: Ambulatory Orders Amlodipine Besylate [Norvasc -] 2.5 mg PO BID 01/12/17 Aspirin [ASA -] 81 mg PO DAILY 01/12/17 Atorvastatin Ca [Lipitor] 40 mg PO HS 01/12/17 Levetiracetam [Keppra -] 500 mg PO BID 01/12/17 Nortriptyline HCl [Pamelor -] 10 mg PO HS 01/12/17 Warfarin Sodium [Coumadin] 7.5 mg PO DAILY 01/12/17 Docusate Sodium [Colace -] 100 mg PO TID #90 capsule 01/15/17 Oxycodone HCl/Acetaminophen [Percocet 5-325 mg Tablet] 1 - 2 tab PO Q4H #20 tablet MDD 4 01/15/17 Family Disease History - Family Disease History Family History: Denies Review of Systems - Review of Systems Constitutional: denies: Chills, Fever, Lethargy, Loss of Appetite, Night Sweats HENT: denies: Difficult Swallowing, Ear Discharge Neck: denies: Decreased ROM, Lumps, Pain on Movement Gastrointestinal: denies: Abdominal Pain, Bloating Musculoskeletal: denies: Back Pain Endocrine: denies: Excessive Sweating Hematology/Lymphatic: reports: Swollen Glands. denies: Easily Bruised, Excessive Bleeding Physical Exam Vital Signs: Vital Signs Temperature 98.1 F 01/20/17 10:00 Pulse Rate 81 11/07/17 10:00 Respiratory Rate 18 01/20/17 10:00 Blood Pressure 111/62 01/20/17 10:00 O2 Sat by Pulse Oximetry (%) 99 01/20/17 09:00 Constitutional: Yes: Well Nourished, No Distress, Calm Eyes: Yes: Conjunctiva Clear HENT: Yes: Atraumatic, Normocephalic Neck: Yes: Supple, Trachea Midline. No: Lymphadenopathy Cardiovascular: Yes: Regular Rate and Rhythm Respiratory: Yes: Regular, CTA Bilaterally Gastrointestinal: Yes: Normal Bowel Sounds, Soft Edema: No Neurological: Yes: Alert, Oriented Psychiatric: Yes: Alert, Oriented Labs: CBC, BMP 01/20/17 12:40 01/20/17 12:40 Problem List - Problems (1) Lymphoma Code(s): C85.90 - NON-HODGKIN LYMPHOMA, UNSPECIFIED, UNSPECIFIED SITE Qualifiers: Lymphoma type: non-Hodgkin Non-Hodgkin lymphoma type: follicular Follicular lymphoma grade: grade II Lymphoma site: lower extremity Qualified Code(s): C82.15 - Follicular lymphoma grade II, lymph nodes of inguinal region and lower limb; C82.15 - Follicular lymphoma grade II, lymph nodes of inguinal region and lower limb; C82.15 - Follicular lymphoma grade II, lymph nodes of inguinal region and lower limb (2) HTN (hypertension) Code(s): I10 - ESSENTIAL (PRIMARY) HYPERTENSION (3) Pacemaker Code(s): Z95.0 - PRESENCE OF CARDIAC PACEMAKER (4) Venous (peripheral) insufficiency Code(s): I87.2 - VENOUS INSUFFICIENCY (CHRONIC) (PERIPHERAL) (5) MRSA (methicillin resistant staph aureus) culture positive Code(s): Z22.322 - CARRIER OR SUSPECTED CARRIER OF METHICILLIN RESIS STAPH Assessment/Plan Pathology of the groin LN : Follicular Lymphoma Grade 2 Staging w/u pending co-morbidities depending on staging, treatment varies from observation/just RT/single agent chemo to multi-agent chemotherapy. for labs discussed this with the patient in detail,he verbalized understanding. made an appt in the office for post discharge f/u 01/29
[2017-01-20] MEDS ORDERED: WARFARIN NA 7.5 MG TABLET (FP) PO SCH (18:00)
[2017-01-20 18:33] VITALS: PULSE 80
[2017-01-20] MEDS: ATORVASTATIN CA 20 MG TABLET (FP) PO SCH (23:32)
[2017-01-20] MEDS: NORTRIPTYLINE HCL 10 MG CAPSULE PO SCH (23:33)
[2017-01-21 08:41] LABS: INR 1.79 (0.82-1.09); PROTHROMBIN TIME (PATIENT) 20.2 SEC (9.98-11.88)
[2017-01-21 08:44] LABS: ACTIVATED PTT 73.1 SECONDS (26.9-34.4)
--- NOTE | 2017-01-21 09:11 | PATH ---
Surgical Pathology Report Patient Name: GRETEL PAGAN JR Med. Rec. #: [id number] /Age/Gender: 1950 (Age: 66) / M Account: [id number] Location: [facility] MED/SURG Taken: 01/15/2017 Received: 01/15/2017 Reported: 01/21/2017 Physicians: Tacho Roldan M.D. Ammir Rabadi, M.D. Specimen(s) Received LEFT GROIN MASS Clinical History Left groin mass Final Diagnosis LYMPH NODE, LEFT GROIN, EXCISION: FOLLICULAR LYMPHOMA, FOLLICULAR PATTERN, LOW GRADE (GRADE 2 OF 3). Comment: Sections reveal effacement of the normal lymph node architecture by a follicular proliferation of abnormal lymphoid cells. Flow cytometry performed and interpreted at [place], [place] ([id number]) shows the following: INTERPRETATION: Clonal CD10+ B-cell population, 54% of total events, is detected, see comment. 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 Correlation with complete morphologic and immunohistochemical assessment of the sample is essential. Phenotype: Clonal (Lambda, dim) B-cell population with dim-moderate CD19, and bright CD20 and FMC7 expression, co-expressing CD10, 54% of total events, is present. This case was seen for Hematopathology Consultation by Dr. Jimenez of [facility], [place], [place] ([id number]), and his report shows the following: Left groin lymph node, excision ([id number]): Follicular lymphoma, follicular pattern, low grade (grade 2 of 3), see comment. Comments: Focal increase of large cells is seen, and scattered large to giant cells are also present in the sample; however, the large cells represent less than 15/hpf on average, consistent with low grade follicular lymphoma. Flow cytometry immunophenotyping, performed on a concurrent sample ([id number]) detected a clonal CD10+ B-cell population, 54% of total events. The proliferative rate is 20-25% overall. Microscopic description: The specimen consists of multiple fragments of lymphoid tissue with loss of normal architecture, due to nodular/follicular proliferation of polymorphous lymphocytes, ranging from small to medium to large forms. The large cells are focally increased; however, they represent less than 15/hpf on average. Scattered giant forms with lobulated nuclei and hyperchromasia are also seen. Immunostains demonstrate B-cell origin of the neoplastic cells, with co-expression of CD20, PAX-5, CD10, HGAL, BCL-6, and BCL-2. The proliferative rate is 20-25%. Immunostains performed on block A4: CD20...Positive CD3....T-cells positive, with focal background CD5....T-cells positive PAX-5...B-cells positive Ki67...Subset (20-25%) positive CD10...Positive BCL-1...Negative BCL-2...Positive BCL-6...Positive HGAL....Positive MARINA.....Negative This case was discussed with Dr. Dailey by Dr. Steele on 01/20/2017. See [facility] reports for additional details. Electronically Signed Austin Morales M.D. Gross Description Received fresh labeled "left groin mass rule out lymphoma" is a 3 x 3 x 1.2 cm portion of ying tissue. Cut surface reveals a uniform ying interior. Touch preps are prepared. A direct marketing representative portion is submitted in RPMI for flow cytometry. All the remaining tissue is submitted in 5 cassettes for permanent section. [facility]/01/15/2017
[2017-01-21] MEDS ORDERED: PT OWN MED DRAWER 7, Y5N ONE ×2 (09:22→15:08)
[2017-01-21] MEDS: VANCOMYCIN 1,000 MG in DEXTROSE 5%-WATER - 250 ML IVPB SCH (09:44)
[2017-01-21] MEDS: levETIRAcetam 500 MG TABLET (FP) PO SCH (09:44)
[2017-01-21] MEDS: NYSTATIN/TRIAMCINOLONE TOPICAL CREAM 15 GM TUBE TP SCH (09:44)
[2017-01-21] MEDS: amLODIPine BESYLATE 2.5 MG TABLET (FP) PO SCH (09:44)
--- NOTE | 2017-01-21 09:49 | PN ---
Progress Note (short form) - Note Progress Note: resting comfortably biopsy with lymphoma no fevers oob in chair Vital Signs Period Temp Pulse Resp BP Sys/Lugo Pulse Ox Last 24 Hr 97.7 F-98.5 F 80-81 18-20 107-134/62-77 100 cor-rrr llungs clear abd soft,nt biopsy site is clean and dry no erythema or drainage CBC, BMP 01/20/17 12:40 01/20/17 12:40 Microbiology 01/19/17 10:25 Blood - Peripheral Venous Blood Culture - Preliminary NO GROWTH OBTAINED AFTER 24 HOURS, INCUBATION TO CONTINUE FOR 4 DAYS. 01/19/17 10:05 Blood - Peripheral Venous Blood Culture - Preliminary NO GROWTH OBTAINED AFTER 24 HOURS, INCUBATION TO CONTINUE FOR 4 DAYS. 01/15/17 08:00 Tissue-Other Gram Stain - Final 01/15/17 08:00 Tissue-Other Tissue Culture - Final S Aureus 01/15/17 08:00 Tissue-Other Anaerobic Culture - Final NO ANAEROBES WERE ISOLATED 01/15/17 08:00 Groin AFB Smear Concentration - Preliminary 01/15/17 08:00 Groin Mycobacterial Culture - Preliminary 01/13/17 00:00 Nares - Mrsa Screen - Left MRSA Screen - Final Mr S Aureus 01/14/17 00:00 Nares - Mrsa Screen - Right MRSA Screen - Final Mr S Aureus 01/15/17 08:00 Groin EVA Preparation - Preliminary 01/15/17 08:00 Groin Fungal Culture - Preliminary a/p 66 year man pmh prosthetic AVR and aortic graft repair/PPM admitted for elective resection of Left groin mass on 01/12 he had excisional biopsy of the left groin mass on 01/15-unclear if entire mass was excised asked to see for operative culture +MRSA from broth no fevers or chills groin wound is dry lymphoma can d/c vancomycin day #3-got a dose this morning switch to po bactrim to finish 7 days total- four more days bactrim ds 1 po bid for 4 days Problem List - Problems (1) Left groin mass Code(s): R19.09 - OTHER INTRA-ABDOMINAL AND PELVIC SWELLING, MASS AND LUMP (2) MRSA (methicillin resistant staph aureus) culture positive Code(s): Z22.322 - CARRIER OR SUSPECTED CARRIER OF METHICILLIN RESIS STAPH (3) History of prosthetic aortic valve Code(s): Z95.2 - PRESENCE OF PROSTHETIC HEART VALVE (4) Pacemaker Code(s): Z95.0 - PRESENCE OF CARDIAC PACEMAKER
--- NOTE | 2017-01-21 10:06 | PN ---
Progress Note, Physician Chief Complaint: no new complaints - Current Medication List Current Medications: Active Medications Amlodipine Besylate (Norvasc -) 2.5 mg PO BID [facility] Last Admin: 01/21/17 09:44 Dose: 2.5 mg Atorvastatin Calcium (Lipitor -) 20 mg PO HS [facility] Last Admin: 01/20/17 23:32 Dose: 20 mg Heparin Sodium (Porcine) (Heparin -) 1,000 unit IVPUSH PRN PRN PRN Reason: Heparin Last Admin: 01/14/17 19:38 Dose: 1,000 unit Heparin Sodium (Porcine) (Heparin -) 5,000 unit IVPUSH PRN PRN PRN Reason: Heparin Last Admin: 01/15/17 23:18 Dose: 5,000 unit Heparin Sodium/Dextrose (Heparin Infusion -) 500 mls @ 16 mls/hr IVPB TITR DIANE ; 800 UNITS/HR PRN Reason: Protocol Last Admin: 01/20/17 23:31 Dose: 1,350 units/hr, 27 mls/hr Vancomycin HCl 1,000 mg/ (Dextrose) 250 mls @ 166.667 mls/hr IVPB BID DIANE PRN Reason: Protocol Last Admin: 01/21/17 09:44 Dose: 166.667 mls/hr Levetiracetam (Keppra -) 500 mg PO BID [facility] Last Admin: 01/21/17 09:44 Dose: 500 mg Nortriptyline HCl (Pamelor -) 10 mg PO HS [facility] Last Admin: 01/20/17 23:33 Dose: 10 mg Nystatin/Triamcinolone Acetonide (Mycolog Ii Cream -) 1 applic TP BID [facility] Last Admin: 01/21/17 09:44 Dose: 1 applic Warfarin Sodium (Coumadin -) 7.5 mg PO DAILY@1800 [facility] Last Admin: 01/20/17 18:24 Dose: 7.5 mg - Objective Vital Signs: Vital Signs Temperature 97.8 F 01/21/17 06:00 Pulse Rate 80 01/21/17 06:00 Respiratory Rate 20 01/21/17 06:00 Blood Pressure 107/68 01/21/17 06:00 O2 Sat by Pulse Oximetry (%) 100 01/20/17 21:00 Constitutional: Yes: No Distress Cardiovascular: Yes: Regular Rate and Rhythm (mechanical S2) Respiratory: Yes: CTA Bilaterally Gastrointestinal: Yes: Soft Edema: No Neurological: Yes: Alert, Oriented Labs: CBC, BMP 01/20/17 12:40 01/20/17 12:40 INR, PTT INR 1.79 (0.82-1.09) H 01/21/17 06:35 Assessment/Plan Assessment/Plan 66M w/ h/p Reop AVR (mechanical, on AC), ascending aortic aneurysm graft, CVA, PPM ([facility]) admitted for biopsy groin mass. [facility] interrogation: Patient is at [facility] - elective battery replacement interval, should have battery change in next 3 months DDD at base rate 80bpm 99% V-paced, PACEMAKER DEPENDANT Normal device function. 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 Cont coumadin with heparin gtt as bridge until INR 2-3
--- NOTE | 2017-01-21 11:05 | DS ---
Physical Examination Vital Signs: Vital Signs Temperature 97.8 F 01/21/17 06:00 Pulse Rate 80 01/21/17 06:00 Respiratory Rate 20 01/21/17 06:00 Blood Pressure 107/68 01/21/17 06:00 O2 Sat by Pulse Oximetry (%) 100 01/20/17 21:00 Findings/Remarks: AWAKE ALERT FEELING BETTER, UNDERSTANDS LYMPHOMA WORKUP AND OUTPATIENT FOLLOW UP WITH DR ZARAGOZA Constitutional: Yes: No Distress Eyes: Yes: WNL HENT: Yes: WNL Neck: Yes: WNL Cardiovascular: Yes: Other Respiratory: Yes: WNL Gastrointestinal: Yes: WNL Breast(s): Yes: WNL Musculoskeletal: Yes: Muscle Weakness Extremities: Yes: WNL Edema: Yes Edema: LLE: Trace, RLE: Trace Peripheral Pulses WNL: Yes Integumentary: Yes: WNL Wound/Incision: Yes: Clean/Dry Neurological: Yes: Pre-Existing Deficit, Unsteady Gait ...Motor Strength: LLE, RLE Psychiatric: Yes: WNL Labs: CBC, BMP 01/20/17 12:40 01/20/17 12:40 Discharge Summary Reason For Visit: MASS Current Active Problems HTN (hypertension) (Acute) History of prosthetic aortic valve (Acute) Left groin mass (Acute) Lymphoma (Acute) MRSA (methicillin resistant staph aureus) culture positive (Acute) Mass (Acute) Old cerebrovascular accident (CVA) without late effect (Acute) Pacemaker (Acute) Procedures: Principal: BIOPSY LEG MASS Other Procedures: CT CHEST/ABD.PELV Hospital Course: ADMITTED FOR LOWER EXTREMITY MASS, FOUND TO BE + LYMPHOMA, WILL NEED ONCOLOGY WORKUP AND F/U WITH DR ZARAGOZA SCHEDULED Condition: Fair - Instructions Diet, Activity, Other Instructions: SEE DR ZARAGOZA FOR ONCOLOGY CONTINUE COUMADIN 7.5MG QHS LOW SALT DIET SEE DR MONET 2-3 DAYS FOR LAB CHECKS Referrals: Viridiana Monet MD [Primary Care Provider] - Disposition: VNS/HOME HEALTH CARE - Home Medications Comprehensive Discharge Medication List: Ambulatory Orders Amlodipine Besylate [Norvasc -] 2.5 mg PO BID 01/12/17 Aspirin [ASA -] 81 mg PO DAILY 01/12/17 Atorvastatin Ca [Lipitor] 40 mg PO HS 01/12/17 Levetiracetam [Keppra -] 500 mg PO BID 01/12/17 Nortriptyline HCl [Pamelor -] 10 mg PO HS 01/12/17 Warfarin Sodium [Coumadin] 7.5 mg PO DAILY 01/12/17 Docusate Sodium [Colace -] 100 mg PO TID #90 capsule 01/15/17 Oxycodone HCl/Acetaminophen [Percocet 5-325 mg Tablet] 1 - 2 tab PO Q4H #20 tablet MDD 4 01/15/17 Amlodipine Besylate [Norvasc -] 2.5 mg PO BID tablet 01/21/17 Atorvastatin Ca [Lipitor] 20 mg PO HS tablet 01/21/17 Levetiracetam [Keppra -] 500 mg PO BID tablet 01/21/17 Nortriptyline HCl [Pamelor -] 10 mg PO HS capsule 01/21/17 Sulfamethoxazole/Trimethoprim [Bactrim Ds Tablet] 1 each PO BID #10 tablet 01/21 Warfarin Na [Coumadin -] 7.5 mg PO DAILY@1800 tablet 01/21/17
[2017-01-21 15:16] VITALS: BP 108/66; TEMP 98.6
--- NOTE | 2017-01-22 20:27 | PN ---
Progress Note (short form) - Note Progress Note: ADDENDUM DIAGNOSIS HYPONATREMIA WITH NEWLY DIAGNOSED LYMPHOMA Problem List - Problems (1) Venous (peripheral) insufficiency Code(s): I87.2 - VENOUS INSUFFICIENCY (CHRONIC) (PERIPHERAL) (2) Mass Code(s): R22.9 - LOCALIZED SWELLING, MASS AND LUMP, UNSPECIFIED (3) H/O heart valve replacement with bioprosthetic valve Code(s): Z95.3 - PRESENCE OF XENOGENIC HEART VALVE (4) Pacemaker Code(s): Z95.0 - PRESENCE OF CARDIAC PACEMAKER (5) Lymphoma Code(s): C85.90 - NON-HODGKIN LYMPHOMA, UNSPECIFIED, UNSPECIFIED SITE Qualifiers: Lymphoma type: non-Hodgkin Non-Hodgkin lymphoma type: follicular Follicular lymphoma grade: grade II Lymphoma site: lower extremity Qualified Code(s): C82.15 - Follicular lymphoma grade II, lymph nodes of inguinal region and lower limb (6) Old cerebrovascular accident (CVA) without late effect Code(s): Z86.73 - PRSNL HX OF TIA (TIA), AND CEREB INFRC W/O RESID DEFICITS
== END 2017-01-21 14:30 | disposition home health service (06) | DRG 824 ==
LOC: JER 10:45 → JERBED 14:31 → J8W 18:40
PROVIDERS: ADMIT Family Medicine; ATTEND Family Medicine
PROC: 07BJ0ZX Excision of Left Inguinal Lymphatic, Open Approach, Diagnostic (ICD-10-PCS; principal; 2017-01-15 07:30)
DX: C82.15 Follicular lymphoma grade II, lymph nodes of inguinal region and lower limb (principal); E87.1 Hypo-osmolality and hyponatremia; I69.854 Hemiplegia and hemiparesis following other cerebrovascular disease affecting left non-dominant side; I48.91 Unspecified atrial fibrillation; J44.9 Chronic obstructive pulmonary disease, unspecified; K44.9 Diaphragmatic hernia without obstruction or gangrene; I10 Essential (primary) hypertension; I25.2 Old myocardial infarction; E78.00 Pure hypercholesterolemia, unspecified; R26.81 Unsteadiness on feet; G62.9 Polyneuropathy, unspecified; I73.89 Other specified peripheral vascular diseases; A49.02 Methicillin resistant Staphylococcus aureus infection, unspecified site; Z87.891 Personal history of nicotine dependence; Z95.4 Presence of other heart-valve replacement; Z95.3 Presence of xenogenic heart valve; Z95.0 Presence of cardiac pacemaker; Z79.01 Long term (current) use of anticoagulants; Z95.1 Presence of aortocoronary bypass graft
CPT/HCPCS: 36415; 71020-TC; 71260-TC; 74177-TC; 80048; 80053; 80061; 82272; 83036; 83615; 83721; 84443; 84550; 85025; 85027; 85610; 85730; 86803; 87040; 87070; 87075; 87081; 87102; 87116; 87186; 87205; 87206; 87210; 88305-TC; 93005; 93010; 93306-TC; 99282-25; G0463-25; J1644; Q9967

== ENCOUNTER 2017-02-11 11:06 | Inpatient (IN) | payer OTHER ==
[2017-02-11 11:18] VITALS: BMI 33.6
--- NOTE | 2017-02-11 12:51 | PDOC ---
History of Present Illness - General Chief Complaint: Pain Stated Complaint: ADMIT (PCP SENT) Time Seen by Provider: 02/11/17 11:48 Past History - Past Medical History Allergies/Adverse Reactions: Allergies Allergy/AdvReac Type Severity Reaction Status Date / Time No Known Drug Allergies Allergy Verified 02/11/17 11:18 Home Medications: Ambulatory Orders Aspirin [ASA -] 81 mg PO DAILY 01/12/17 Atorvastatin Ca [Lipitor] 40 mg PO HS 01/12/17 Warfarin Sodium [Coumadin] 7.5 mg PO DAILY 01/12/17 Docusate Sodium [Colace -] 100 mg PO TID #90 capsule 01/15/17 Oxycodone HCl/Acetaminophen [Percocet 5-325 mg Tablet] 1 - 2 tab PO Q4H #20 tablet MDD 4 01/15/17 Amlodipine Besylate [Norvasc -] 2.5 mg PO BID tablet 01/21/17 Levetiracetam [Keppra -] 500 mg PO BID tablet 01/21/17 Nortriptyline HCl [Pamelor -] 10 mg PO HS capsule 01/21/17 Solifenacin Succinate [VESIcare] 10 mg NR DAILY 02/11/17 Anemia: No Asthma: No Cancer: Yes (LYMPHOMA) Cardiac Disorders: Yes (AORTIC VALVE REPLACEMENT, TRANSVERSE ARCH GRAFT) CVA: No COPD: Yes (ABESTOSIS) CHF: Yes DVT: No Dementia: No Diabetes: No GI Disorders: Yes (HIATAL HERNIA) Disorders: No HTN: Yes Hypercholesterolemia: Yes Liver Disease: No Seizures: No Thyroid Disease: No - Surgical History Abdominal Surgery: No Appendectomy: No Cardiac Surgery: Yes (PACEMAKER; VALVE REPLACEMENT,TRANSVERSE ARCH GRAFT) Cholecystectomy: No Lung Surgery: No Neurologic Surgery: No Orthopedic Surgery: No - Immunization History Immunization Up to Date: Yes - Suicide/Smoking/Psychosocial Hx Smoking Status: No Smoking History: Former smoker Have you smoked in the past 12 months: No Number of Cigarettes Smoked Daily: 8 If you are a former smoker, when did you quit?: 30 YRS Cigars Per Day: 1 Information on smoking cessation initiated: No 'Breaking Loose' booklet given: 08/16/14 Hx Alcohol Use: Yes (SOCIAL) Drug/Substance Use Hx: No Substance Use Type: None Hx Substance Use Treatment: No *Physical Exam - Vital Signs Last Vital Signs Temp Pulse Resp BP Pulse Ox 98.0 F 66 20 156/93 100 02/11/17 11:14 02/11/17 11:14 02/11/17 11:14 02/11/17 11:14 02/11/17 11:14 *DC/Admit/Observation/Transfer - Referrals Referrals: Viridiana Monet MD [Primary Care Provider] - - Patient Instructions - Post Discharge Activity
--- NOTE | 2017-02-11 12:55 | PDOC ---
History of Present Illness <Trang Booth - Last Filed: 02/11/17 14:46> - History of Present Illness Initial Comments: 02/11/17 12:54 66yo M hx hypertension, pacemaker, AVR s/p mechanical valve on coumadin, CABG 3 , HI, CVA with left-sided residual deficits, COPD, asthma stenosis, CHF who presents today for admission to have biopsy of newly found RP mass on PET scan. Patient was sent in for admission by Dr. Hill as he needs a biopsy and is on Coumadin for a mechanical valve. The patient currently denies any symptoms except for generalized weakness. Denies fevers, chills, chest pain, shortness of breath, abdominal pain, headache, focal weakness, numbness. <Merrick Jansen - Last Filed: 02/11/17 14:52> - General Chief Complaint: Pain Stated Complaint: ADMIT (PCP SENT) Time Seen by Provider: 02/11/17 11:48 Past History <Trang Booth - Last Filed: 02/11/17 14:46> - Past Medical History Anemia: No Asthma: No Cancer: Yes (LYMPHOMA) Cardiac Disorders: Yes (AORTIC VALVE REPLACEMENT, TRANSVERSE ARCH GRAFT) CVA: No COPD: Yes (ABESTOSIS) CHF: Yes DVT: No Dementia: No Diabetes: No GI Disorders: Yes (HIATAL HERNIA) Disorders: No HTN: Yes Hypercholesterolemia: Yes Liver Disease: No Seizures: No Thyroid Disease: No - Surgical History Abdominal Surgery: No Appendectomy: No Cardiac Surgery: Yes (PACEMAKER; VALVE REPLACEMENT,TRANSVERSE ARCH GRAFT) Cholecystectomy: No Lung Surgery: No Neurologic Surgery: No Orthopedic Surgery: No - Immunization History Immunization Up to Date: Yes - Suicide/Smoking/Psychosocial Hx Smoking Status: No Smoking History: Former smoker Have you smoked in the past 12 months: No Number of Cigarettes Smoked Daily: 8 If you are a former smoker, when did you quit?: 30 YRS Cigars Per Day: 1 Information on smoking cessation initiated: No 'Breaking Loose' booklet given: 08/16/14 Hx Alcohol Use: Yes (SOCIAL) Drug/Substance Use Hx: No Substance Use Type: None Hx Substance Use Treatment: No <Merrick Jansen - Last Filed: 02/11/17 14:52> - Past Medical History Allergies/Adverse Reactions: Allergies Allergy/AdvReac Type Severity Reaction Status Date / Time No Known Drug Allergies Allergy Verified 02/11/17 11:18 Home Medications: Ambulatory Orders Aspirin [ASA -] 81 mg PO DAILY 01/12/17 Atorvastatin Ca [Lipitor] 40 mg PO HS 01/12/17 Warfarin Sodium [Coumadin] 7.5 mg PO DAILY 01/12/17 Docusate Sodium [Colace -] 100 mg PO TID #90 capsule 01/15/17 Oxycodone HCl/Acetaminophen [Percocet 5-325 mg Tablet] 1 - 2 tab PO Q4H #20 tablet MDD 4 01/15/17 Amlodipine Besylate [Norvasc -] 2.5 mg PO BID tablet 01/21/17 Levetiracetam [Keppra -] 500 mg PO BID tablet 01/21/17 Nortriptyline HCl [Pamelor -] 10 mg PO HS capsule 01/21/17 Solifenacin Succinate [VESIcare] 10 mg NR DAILY 02/11/17 Review of Systems - Review of Systems Comments:: 02/11/17 13:24 GENERAL/CONSTITUTIONAL: No fever or chills. +generalized weakness. HEAD, EYES, EARS, NOSE AND THROAT: No change in vision. No ear pain or discharge. No sore throat. GASTROINTESTINAL: No nausea, vomiting, diarrhea or constipation. GENITOURINARY: No dysuria, frequency, or change in urination. CARDIOVASCULAR: No chest pain or shortness of breath. RESPIRATORY: No cough, wheezing, or hemoptysis. MUSCULOSKELETAL: No joint or muscle swelling or pain. No neck or back pain. SKIN: No rash NEUROLOGIC: No headache, vertigo, loss of consciousness, or change in strength/ sensation. ENDOCRINE: No increased thirst. No abnormal weight change. HEMATOLOGIC/LYMPHATIC: No anemia, easy bleeding, or history of blood clots. ALLERGIC/IMMUNOLOGIC: No hives or skin allergy. <Merrick Jansen - Last Filed: 02/11/17 14:52> *Physical Exam - Vital Signs Last Vital Signs Temp Pulse Resp BP Pulse Ox 98.0 F 66 20 156/93 100 02/11/17 11:14 02/11/17 11:14 02/11/17 11:14 02/11/17 11:14 02/11/17 11:14 <Trang Booth - Last Filed: 02/11/17 14:46> - Vital Signs Last Vital Signs Temp Pulse Resp BP Pulse Ox 98.0 F 66 20 156/93 100 02/11/17 11:14 02/11/17 11:14 02/11/17 11:14 02/11/17 11:14 02/11/17 11:14 - Physical Exam Comments: 02/11/17 13:25 GENERAL: Awake, alert, and fully oriented, in no acute distress HEAD: No signs of trauma EYES: PERRLA, EOMI, sclera anicteric, conjunctiva clear ENT: Auricles normal inspection, hearing grossly normal, nares patent, oropharynx clear without exudates. Moist mucosa NECK: Normal ROM, supple, no lymphadenopathy, JVD, or masses LUNGS: Breath sounds equal, clear to auscultation bilaterally. No wheezes, and no crackles HEART: Regular rate and rhythm, normal S1 and S2, no murmurs, rubs or gallops ABDOMEN: Soft, nontender, normoactive bowel sounds. No guarding, no rebound. No masses EXTREMITIES: Normal range of motion, no edema. No clubbing or cyanosis. No cords, erythema, or tenderness NEUROLOGICAL: Normal speech, cranial nerves intact, negative pronator drift, 5/ 5 strength in all 4 extremities, normal sensation to light touch in all 4 extremities, normal cerebellar exam, normal gait, normal reflexes and tone SKIN: Warm, Dry, normal turgor, no rashes or lesions noted. <Merrick Jansen - Last Filed: 02/11/17 14:52> ED Treatment Course - LABORATORY CBC & Chemistry Diagram: 02/11/17 13:00 02/11/17 13:24 - ADDITIONAL ORDERS Additional order review: Laboratory Results 02/11/17 02/11/17 02/11/17 13:24 13:00 13:00 PT with INR 24.40 H INR 2.16 H PTT (Actin FS) 38.0 H D Sodium 142 Potassium 4.4 Chloride 105 D Carbon Dioxide 29 Anion Gap 8 BUN 20 H Creatinine 0.8 Creat Clearance w eGFR > 60 Random Glucose 82 D Calcium 9.9 Magnesium 1.9 Total Bilirubin 0.7 D AST 15 ALT 21 Alkaline Phosphatase 78 D Total Protein 7.9 Albumin 4.3 02/11/17 13:00 RBC 4.05 MCV 96.4 H MCHC 33.2 RDW 13.8 MPV 8.9 Neutrophils % 73.0 Lymphocytes % 12.5 Monocytes % 12.0 H Eosinophils % 1.9 Basophils % 0.6 <Trang Booth - Last Filed: 02/11/17 14:46> - LABORATORY CBC & Chemistry Diagram: 02/11/17 13:00 02/11/17 13:24 - RADIOLOGY Radiology Studies Ordered: Category Date Time Status CHEST X-RAY PORTABLE* [RAD] Stat Radiology 02/11/17 12:52 Ordered <Merrick Jansen - Last Filed: 02/11/17 14:52> Medical Decision Making - Medical Decision Making 02/11/17 14:46 Dr. Monet paged via office number. Patient's case discussed. <Trang Booth - Last Filed: 02/11/17 14:46> - Medical Decision Making 02/11/17 13:25 66-year-old male with multiple medical problems including mechanical valve on Coumadin presents for admission for retroperitoneal mass biopsy. Vitals within normal limits. Exam within normal limits. Will obtain admission labs, chest x- ray and EKG and admit the patient for further management. 02/11/17 14:50 Patient is admitted to Dr. Monet Case discussed in detail with admitting physician including history, physical exam and ancillary studies. Admitting physician has assumed care for the patient, will follow all pending diagnostics and will complete the evaluation and treatment. <Merrick Jansen - Last Filed: 02/11/17 14:52> *DC/Admit/Observation/Transfer <Trang Booth - Last Filed: 02/11/17 14:46> - Discharge Dispostion Admit: Yes - Attestations Physician Attestion: 02/11/17 14:52 I, Dr. Merrick Jansen MD, attest that this document has been prepared under my direction and personally reviewed by me in its entirety. I further attest, that it accurately reflects all work, treatment, procedures and medical decision -making performed by me. <Merrick Jansen - Last Filed: 02/11/17 14:52> Diagnosis at time of Disposition: Mass - Discharge Dispostion Condition at time of disposition: Stable - Referrals Referrals: Viridiana Monet MD [Primary Care Provider] - - Patient Instructions - Post Discharge Activity
[2017-02-11 13:40] LABS: BASO % 0.6 % (0-2.0); EOS % 1.9 % (0-4.5); LYMPH % 12.5 % (8-40); MCHC 33.2 g/dl (32.0-35.9); MEAN CELL VOLUME 96.4 fl (80-96); MEAN PLT VOLUME 8.9 fl (7.5-11.1); PLATELET COUNT 174 K/MM3 (134-434); RBC 4.05 M/mm3 (4.00-5.60); RDW 13.8 % (11.9-15.9); WHITE BLOOD COUNT 6.5 K/mm3 (4.0-10.0)
[2017-02-11 14:04] LABS: ALBUMIN 4.3 g/dl (3.4-5.0); ALK PHOS 78 U/L (45-117); ANION GAP 8 (8-16); BILIRUBIN,TOTAL 0.7 mg/dL (0.2-1.0); BLOOD UREA NITROGEN 20 mg/dL (7-18); CALCIUM 9.9 mg/dL (8.5-10.1); CHLORIDE 105 mmol/L (98-107); CO2 29 mmol/L (21-32); CREATININE 0.8 mg/dL (0.7-1.3); GLUCOSE,RANDOM 82 mg/dL (74-106); MAGNESIUM 1.9 mg/dL (1.8-2.4); POTASSIUM 4.4 mmol/L (3.5-5.1); SGOT/AST 15 U/L (15-37); SGPT/ALT 21 U/L (12-78); SODIUM 142 mmol/L (136-145); TOT PROT 7.9 g/dl (6.4-8.2)
[2017-02-11 14:09] LABS: INR 2.16 (0.82-1.09); PROTHROMBIN TIME (PATIENT) 24.4 SEC (9.98-11.88)
[2017-02-11] MEDS ORDERED: oxyCODONE HCL 5 MG TABLET PO PRN (14:52)
[2017-02-11] MEDS ORDERED: ACETAMINOPHEN 325 MG TABLET (FP) PO PRN (14:52)
[2017-02-11] MEDS ORDERED: DOCUSATE SODIUM 100 MG CAPSULE (FP) PO SCH (15:00)
[2017-02-11] MEDS: levETIRAcetam 500 MG TABLET (FP) PO SCH ×2 (15:02→22:43)
--- NOTE | 2017-02-11 18:08 | PN ---
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 He was seen in the office post discharge. Ordered a PET CT to determine the grade of the RP LAD which was present in the CT scan done in the hospital. PET CT scan reported last Thursday as low grade lymphoma above and below the diaphragm except for the retroperitoneal lymphadenopathy which was bulky and an SUV of >15 suggested as a High grade transformation. In this case, the possibility of a CONCURRENT Low grade Lymphoma and a high grade lymphoma based on PET CT, but would need a pathological diagnosis of the RP LAD to show if its a transformed Lymphoma and treatment would be an anthracycline based therapy. Needed admission given his systemic Anti- coagulation situation. Have also discussed this plan with . Called him this Thursday, left messages and unfortunately could not reach him until yesterday, he didn't want to come in yesterday and he chose to come this morning. Patient now in the ER and being admitted. Patient seen and examined. O/E: GENERAL: NAD HEENT: NCAT Lungs: CTA b/l Abdomen: Obese NEuro: AAOX3. Temp Pulse Resp BP Pulse Ox 98.1 F 67 18 125/73 95 02/11/17 16:55 02/11/17 16:55 02/11/17 16:55 02/11/17 16:55 02/11/17 16:55 Current Medications Generic Name Dose Route Start Last Admin Trade Name Freq PRN Reason Stop Dose Admin Acetaminophen 650 mg 02/11/17 14:52 Tylenol - PO Q6H PRN FEVER OR PAIN Amlodipine Besylate 2.5 mg 02/12/17 10:00 Norvasc - PO DAILY DIANE Docusate Sodium 300 mg 02/11/17 22:00 Colace - PO HS DIANE Levetiracetam 500 mg 02/11/17 15:00 02/11/17 15:02 Keppra - PO 500 mg BID DIANE Administration Nortriptyline HCl 10 mg 02/11/17 22:00 Pamelor - PO HS DIANE Oxycodone HCl 5 mg 02/11/17 14:52 Roxicodone - PO Q6H PRN PAIN Solifenacin 10 mg 02/12/17 10:00 Vesicare - PO DAILY DIANE CBC, BMP 02/11/17 13:00 02/11/17 13:24 INR, PTT INR 2.16 (0.82-1.09) H 02/11/17 13:00 Heparin drip once INR <2 Surgical consult for biopsy discussed about port/BM biopsy. will need combination chemo (anthracycline based) ,cardiology consult. MUGA yet to be done as an OP
[2017-02-11] MEDS: DOCUSATE SODIUM 100 MG CAPSULE (FP) PO SCH (22:43)
[2017-02-11] MEDS: NORTRIPTYLINE HCL 10 MG CAPSULE PO SCH (23:03)
[2017-02-12 07:31] LABS: BASO % 0.6 % (0-2.0); EOS % 2.6 % (0-4.5); HEMATOCRIT 37.7 % (35.4-49); HEMOGLOBIN 12.8 GM/dL (11.7-16.9); LYMPH % 11.9 % (8-40); MCH 32.5 pg (25.7-33.7); MEAN CELL VOLUME 95.7 fl (80-96); MEAN PLT VOLUME 8.7 fl (7.5-11.1); MONO % 12.5 % (3.8-10.2); NEUT % 72.4 % (42.8-82.8); PLATELET COUNT 163 K/MM3 (134-434); RBC 3.93 M/mm3 (4.00-5.60); RDW 13.7 % (11.9-15.9); WHITE BLOOD COUNT 5.6 K/mm3 (4.0-10.0)
[2017-02-12 07:50] LABS: INR 1.76 (0.82-1.09); PROTHROMBIN TIME (PATIENT) 19.9 SEC (9.98-11.88)
[2017-02-12 07:59] LABS: ALBUMIN 3.9 g/dl (3.4-5.0); ANION GAP 6 (8-16); BILIRUBIN,TOTAL 0.7 mg/dL (0.2-1.0); BLOOD UREA NITROGEN 21 mg/dL (7-18); CALCIUM 9.1 mg/dL (8.5-10.1); CHLORIDE 104 mmol/L (98-107); CO2 30 mmol/L (21-32); CREATININE 0.8 mg/dL (0.7-1.3); GLUCOSE,RANDOM 98 mg/dL (74-106); LDH 216 U/L (87-241); POTASSIUM 4.1 mmol/L (3.5-5.1); SGOT/AST 15 U/L (15-37); SGPT/ALT 19 U/L (12-78); SODIUM 140 mmol/L (136-145); TOT PROT 7.3 g/dl (6.4-8.2)
[2017-02-12 08:00] LABS: ALK PHOS 75 U/L (45-117)
--- NOTE | 2017-02-12 09:17 | PN ---
Progress Note, Physician Chief Complaint: 6M w/ h/p Reop AVR (mechanical, on AC), ascending aortic aneurysm graft, CVA, PPM ([facility]) recently admitted for bx in groin found to have lymphoma now readmitted for biopsy of newly detected abdominal nodes. There is concern that the abdominal nodes may represent a more aggressive form of lymphoma than was recently found in the groin. He is chronically on warfarin for his mechanical AVR. - Current Medication List Current Medications: Active Medications Acetaminophen (Tylenol -) 650 mg PO Q6H PRN PRN Reason: FEVER OR PAIN Amlodipine Besylate (Norvasc -) 2.5 mg PO DAILY [facility] Docusate Sodium (Colace -) 300 mg PO HS [facility] Last Admin: 02/11/17 22:43 Dose: 300 mg Levetiracetam (Keppra -) 500 mg PO BID [facility] Last Admin: 02/11/17 22:43 Dose: 500 mg Nortriptyline HCl (Pamelor -) 10 mg PO HS [facility] Last Admin: 02/11/17 23:03 Dose: 10 mg Oxycodone HCl (Roxicodone -) 5 mg PO Q6H PRN PRN Reason: PAIN Solifenacin (Vesicare -) 10 mg PO DAILY [facility] - Objective Vital Signs: Vital Signs Temperature 98 F 02/12/17 06:00 Pulse Rate 67 02/12/17 06:00 Respiratory Rate 18 02/12/17 06:00 Blood Pressure 128/65 02/12/17 06:00 O2 Sat by Pulse Oximetry (%) 97 02/11/17 20:38 Constitutional: Yes: No Distress HENT: Yes: Tonsillar Exudate (Mechanical S2, regular) Respiratory: Yes: CTA Bilaterally Gastrointestinal: Yes: Soft (non-tender) Edema: No Neurological: Yes: Alert, Oriented Labs: CBC, BMP 02/12/17 06:00 02/12/17 06:00 INR, PTT INR 1.76 (0.82-1.09) H 02/12/17 06:00 Assessment/Plan Assessment/Plan 66M w/ h/p Reop AVR (mechanical, on AC), ascending aortic aneurysm graft, CVA, PPM ([facility]) admitted for biopsy abdominal mass due to concern it may represent a different form of lymphoma than was recently diagnosed in the groin. 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 REC: Hold coumadin, Begin IV heparin gtts when INR is < 2.0 as bridge to procedure which will likely need to be done by IR. [facility] appointment for elective battery change on his PPM on Feb 24, arranged by his primary tooling engineer Dr. Alexis Beck.
[2017-02-12] MEDS ORDERED: HEPARIN NA (PORCINE) 5,000 UNITS/ML 1ML VIAL IVPUSH PRN (09:34)
--- NOTE | 2017-02-12 10:02 | CONSULT ---
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 Cardio/Vascular: Yes: AFIB, HTN, Other (atrial valve prosthesis) - Alcohol/Substance Use Hx Alcohol Use: Yes (SOCIAL) - Smoking History Smoking history: Former smoker Have you smoked in the past 12 months: No Aproximately how many cigarettes per day: 8 If you are a former smoker, when did you quit?: 30 YRS Home Medications - Allergies Allergies/Adverse Reactions: Allergies Allergy/AdvReac Type Severity Reaction Status Date / Time No Known Drug Allergies Allergy Verified 02/11/17 11:18 - Home Medications Home Medications: Ambulatory Orders Aspirin [ASA -] 81 mg PO DAILY 01/12/17 Atorvastatin Ca [Lipitor] 40 mg PO HS 01/12/17 Warfarin Sodium [Coumadin] 7.5 mg PO DAILY 01/12/17 Docusate Sodium [Colace -] 100 mg PO TID #90 capsule 01/15/17 Oxycodone HCl/Acetaminophen [Percocet 5-325 mg Tablet] 1 - 2 tab PO Q4H #20 tablet MDD 4 01/15/17 Amlodipine Besylate [Norvasc -] 2.5 mg PO BID tablet 01/21/17 Levetiracetam [Keppra -] 500 mg PO BID tablet 01/21/17 Nortriptyline HCl [Pamelor -] 10 mg PO HS capsule 01/21/17 Solifenacin Succinate [VESIcare] 10 mg NR DAILY 02/11/17 Family Disease History - Family Disease History Family History: Unremarkable Review of Systems - Review of Systems Constitutional: denies: Chills HENT: reports: No Symptoms Cardiovascular: denies: Chest Pain Respiratory: denies: Cough Gastrointestinal: denies: Abdominal Pain Neurological: denies: Change in LOC Pain Intensity: 0 Physical Exam Vital Signs: Vital Signs Temperature 98 F 02/12/17 06:00 Pulse Rate 67 02/12/17 06:00 Respiratory Rate 18 02/12/17 06:00 Blood Pressure 128/65 02/12/17 06:00 O2 Sat by Pulse Oximetry (%) 97 02/11/17 20:38 Constitutional: Yes: Calm Neck: Yes: Supple Cardiovascular: Yes: WNL Respiratory: Yes: WNL Gastrointestinal: Yes: Soft Neurological: Yes: Alert, Oriented Labs: CBC, BMP 02/12/17 06:00 02/12/17 06:00 Problem List - Problems (1) Retroperitoneal mass Code(s): R19.00 - INTRA-ABD AND PELVIC SWELLING, MASS AND LUMP, UNSP SITE Assessment/Plan 66 male s/p inguinal lymph node biopsy- follicular lymphoma Retroperitoneal lymph node seen on PET IR guided biopsy
[2017-02-12] MEDS ORDERED: PT OWN MED DRAWER 7, Y5N ONE ×3 (10:14→20:59)
[2017-02-12] MEDS: amLODIPine BESYLATE 2.5 MG TABLET (FP) PO SCH (10:15)
[2017-02-12] MEDS: levETIRAcetam 500 MG TABLET (FP) PO SCH ×2 (10:16→21:22)
--- NOTE | 2017-02-12 10:29 | HP ---
Admitting History and Physical - Primary Care Physician PCP: Viridiana Monet - Admission Chief Complaint: LYMPHADENOPATHY History of Present Illness: HISTORY OF CVA , CARDIAC VALVE REPLACEMENT, ON COUMADIN, DIAGNOSED WITH LYMPHOMA EARLIER THIS MONTH HERE FOR ADENOPATHY RETROPERITONEAL ON PETSCAN THAT NEEDS BIOPSY. 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 Cardiovascular: Yes: AFIB, HTN, Other (atrial valve prosthesis) - Smoking History Smoking history: Former smoker Have you smoked in the past 12 months: No Aproximately how many cigarettes per day: 8 If you are a former smoker, when did you quit?: 30 YRS - Alcohol/Substance Use Hx Alcohol Use: Yes (SOCIAL) Home Medications - Allergies Allergies/Adverse Reactions: Allergies Allergy/AdvReac Type Severity Reaction Status Date / Time No Known Drug Allergies Allergy Verified 02/11/17 11:18 - Home Medications Home Medications: Ambulatory Orders Aspirin [ASA -] 81 mg PO DAILY 01/12/17 Atorvastatin Ca [Lipitor] 40 mg PO HS 01/12/17 Warfarin Sodium [Coumadin] 7.5 mg PO DAILY 01/12/17 Docusate Sodium [Colace -] 100 mg PO TID #90 capsule 01/15/17 Oxycodone HCl/Acetaminophen [Percocet 5-325 mg Tablet] 1 - 2 tab PO Q4H #20 tablet MDD 4 01/15/17 Amlodipine Besylate [Norvasc -] 2.5 mg PO BID tablet 01/21/17 Levetiracetam [Keppra -] 500 mg PO BID tablet 01/21/17 Nortriptyline HCl [Pamelor -] 10 mg PO HS capsule 01/21/17 Solifenacin Succinate [VESIcare] 10 mg NR DAILY 02/11/17 Review of Systems - Review of Systems Constitutional: reports: No Symptoms Eyes: reports: No Symptoms HENT: reports: No Symptoms Neck: reports: No Symptoms Cardiovascular: reports: No Symptoms Respiratory: reports: No Symptoms Gastrointestinal: reports: No Symptoms Genitourinary: reports: No Symptoms Musculoskeletal: reports: Muscle Weakness Integumentary: reports: No Symptoms Neurological: reports: Pre-Existing Deficit Endocrine: reports: No Symptoms Hematology/Lymphatic: reports: Swollen Glands Psychiatric: reports: No Symptoms Physical Examination Vital Signs: Vital Signs Temperature 98.0 F 02/12/17 10:13 Pulse Rate 67 02/12/17 10:13 Respiratory Rate 18 02/12/17 10:13 Blood Pressure 120/69 02/12/17 10:13 O2 Sat by Pulse Oximetry (%) 97 02/11/17 20:38 Constitutional: Yes: No Distress Eyes: Yes: WNL HENT: Yes: WNL Neck: Yes: WNL Cardiovascular: Yes: Pulse Irregular, Murmur Respiratory: Yes: WNL Gastrointestinal: Yes: WNL Renal/: Yes: WNL Musculoskeletal: Yes: WNL Extremities: Yes: WNL Edema: Yes Peripheral Pulses WNL: Yes Integumentary: Yes: WNL Wound/Incision: Yes: Clean/Dry Neurological: Yes: Pre-Existing Deficit ...Motor Strength: LLE, RLE Psychiatric: Yes: WNL Labs: CBC, BMP 02/12/17 06:00 02/12/17 06:00 Problem List - Problems (1) Mass Code(s): R22.9 - LOCALIZED SWELLING, MASS AND LUMP, UNSPECIFIED (2) Retroperitoneal mass Code(s): R19.00 - INTRA-ABD AND PELVIC SWELLING, MASS AND LUMP, UNSP SITE (3) HTN (hypertension) Code(s): I10 - ESSENTIAL (PRIMARY) HYPERTENSION (4) History of prosthetic aortic valve Code(s): Z95.2 - PRESENCE OF PROSTHETIC HEART VALVE (5) Lymphoma Code(s): C85.90 - NON-HODGKIN LYMPHOMA, UNSPECIFIED, UNSPECIFIED SITE Qualifiers: Lymphoma type: non-Hodgkin Non-Hodgkin lymphoma type: follicular Follicular lymphoma grade: grade II Lymphoma site: lower extremity Qualified Code(s): C82.15 - Follicular lymphoma grade II, lymph nodes of inguinal region and lower limb (6) Old cerebrovascular accident (CVA) without late effect Code(s): Z86.73 - PRSNL HX OF TIA (TIA), AND CEREB INFRC W/O RESID DEFICITS Assessment/Plan BIOPSY WITH IR HOLD AC ONCOLOGY AND CARDIOLOGY EVAL FOR CLEARANCE
--- NOTE | 2017-02-12 12:56 | EKG ---
Test Reason : Blood Pressure : / mmHG Vent. Rate : 067 BPM Atrial Rate : 065 BPM P-R Int : 000 ms QRS Dur : 178 ms QT Int : 482 ms P-R-T Axes : 000 137 060 degrees QTc Int : 509 ms Ventricular-paced rhythm ABNORMAL ECG WHEN COMPARED WITH ECG OF 12-JAN-2017 12:55, VENT. RATE HAS DECREASED BY 13 BPM Confirmed by DIANA MARR MD ([id number]) on 02/12/2017 12:56:16 PM Referred By: Confirmed By:DIANA MARR MD
[2017-02-12] MEDS ORDERED: PORTA CATH FLUSH 10 ML IVPUSH PRN (13:42)
[2017-02-12] MEDS: HEPARIN INFUSION - 25,000 UNITS/500 ML INFUS.BAG IVPB SCH ×2 (13:43→20:40)
[2017-02-12] MEDS: SOLIFENACIN SUCCINATE 5 MG TAB (FP) PO SCH (14:28)
--- NOTE | 2017-02-12 17:36 | PN ---
Progress Note (short form) - Note Progress Note: Patient seen and examined. heparin drip started. chart reviewed. O/E: GENERAL: NAD HEENT: NCAT Lungs: CTA b/l Abdomen: Obese NEuro: AAOX3. Last Vital Signs Temp Pulse Resp BP Pulse Ox 97.5 F L 67 20 120/68 99 02/12/17 14:11 02/12/17 14:11 02/12/17 14:11 02/12/17 14:11 02/12/17 09:00 CBC, BMP 02/12/17 06:00 02/12/17 06:00 Current Medications Generic Name Dose Route Start Last Admin Trade Name Freq PRN Reason Stop Dose Admin Acetaminophen 650 mg 02/11/17 14:52 Tylenol - PO Q6H PRN FEVER OR PAIN Amlodipine Besylate 2.5 mg 02/12/17 10:00 02/12/17 10:15 Norvasc - PO 2.5 mg DAILY DIANE Administration Docusate Sodium 300 mg 02/11/17 22:00 02/11/17 22:43 Colace - PO 300 mg HS DIANE Administration Heparin Sodium (Porcine) 5,000 unit 02/12/17 09:34 Heparin - IVPUSH PRN PRN Heparin Sodium (Porcine) 1,000 unit 02/12/17 09:34 Heparin - IVPUSH PRN PRN IV Flush 10 ml 02/12/17 13:42 Gayle-Cath Flush IVPUSH PRN PRN Protocol Heparin Sodium/Dextrose 25,000 units in 500 mls @ 20 mls/hr 02/12/17 09:30 13:43 Heparin Infusion - IVPB 1,000 unit/hr TITR DIANE 20 mls/hr Protocol Administration 1,000 UNIT/HR Levetiracetam 500 mg 02/11/17 15:00 02/12/17 10:16 Keppra - PO 500 mg BID DIANE Administration Nortriptyline HCl 10 mg 02/11/17 22:00 02/11/17 23:03 Pamelor - PO 10 mg HS DIANE Administration Oxycodone HCl 5 mg 02/11/17 14:52 Roxicodone - PO Q6H PRN PAIN Solifenacin 10 mg 02/12/17 10:00 02/12/17 14:28 Vesicare - PO 10 mg DAILY DIANE Administration INR, PTT INR 1.76 (0.82-1.09) H 02/12/17 06:00 Heparin drip once INR <2 for IR guided biopsy and Port Appreciate Surgery/Cardiology input.
[2017-02-12] MEDS: DOCUSATE SODIUM 100 MG CAPSULE (FP) PO SCH (21:21)
[2017-02-12] MEDS: NORTRIPTYLINE HCL 10 MG CAPSULE PO SCH (21:22)
[2017-02-13 08:44] LABS: BASO % 0.7 % (0-2.0); EOS % 2.2 % (0-4.5); HEMATOCRIT 36.6 % (35.4-49); HEMOGLOBIN 12.3 GM/dL (11.7-16.9); MCH 32.5 pg (25.7-33.7); MCHC 33.7 g/dl (32.0-35.9); MEAN CELL VOLUME 96.6 fl (80-96); MEAN PLT VOLUME 8.6 fl (7.5-11.1); MONO % 11.8 % (3.8-10.2); NEUT % 73.3 % (42.8-82.8); PLATELET COUNT 162 K/MM3 (134-434); RBC 3.79 M/mm3 (4.00-5.60); RDW 13.5 % (11.9-15.9); WHITE BLOOD COUNT 5.6 K/mm3 (4.0-10.0)
[2017-02-13 08:59] LABS: INR 1.42 (0.82-1.09)
[2017-02-13 09:01] LABS: ACTIVATED PTT 31.8 SECONDS (26.9-34.4)
[2017-02-13 09:17] LABS: ALBUMIN 3.7 g/dl (3.4-5.0); ANION GAP 6 (8-16); BILIRUBIN,TOTAL 0.8 mg/dL (0.2-1.0); BLOOD UREA NITROGEN 19 mg/dL (7-18); CALCIUM 8.6 mg/dL (8.5-10.1); CHLORIDE 106 mmol/L (98-107); CO2 28 mmol/L (21-32); CREATININE 0.9 mg/dL (0.7-1.3); GLUCOSE,RANDOM 91 mg/dL (74-106); POTASSIUM 4.1 mmol/L (3.5-5.1); SGOT/AST 14 U/L (15-37); SGPT/ALT 21 U/L (12-78); SODIUM 140 mmol/L (136-145)
[2017-02-13 09:18] LABS: ALK PHOS 77 U/L (45-117); TOT PROT 7.2 g/dl (6.4-8.2)
--- NOTE | 2017-02-13 09:28 | PN ---
Progress Note, Physician Chief Complaint: for IR bx today - Current Medication List Current Medications: Active Medications Acetaminophen (Tylenol -) 650 mg PO Q6H PRN PRN Reason: FEVER OR PAIN Amlodipine Besylate (Norvasc -) 2.5 mg PO DAILY [facility] Last Admin: 02/12/17 10:15 Dose: 2.5 mg Docusate Sodium (Colace -) 300 mg PO HS [facility] Last Admin: 02/12/17 21:21 Dose: 300 mg Heparin Sodium (Porcine) (Heparin -) 5,000 unit IVPUSH PRN PRN Heparin Sodium (Porcine) (Heparin -) 1,000 unit IVPUSH PRN PRN Last Admin: 02/12/17 20:36 Dose: 1,000 unit IV Flush (Gayle-Cath Flush) 10 ml IVPUSH PRN PRN PRN Reason: Protocol Heparin Sodium/Dextrose (Heparin Infusion -) 25,000 units in 500 mls @ 20 mls/ hr IVPB TITR DIANE; 1,000 UNIT/HR PRN Reason: Protocol Last Admin: 02/12/17 20:40 Dose: 1,100 unit/hr, 22 mls/hr Levetiracetam (Keppra -) 500 mg PO BID [facility] Last Admin: 02/12/17 21:22 Dose: 500 mg Nortriptyline HCl (Pamelor -) 10 mg PO HS [facility] Last Admin: 02/12/17 21:22 Dose: 10 mg Oxycodone HCl (Roxicodone -) 5 mg PO Q6H PRN PRN Reason: PAIN Solifenacin (Vesicare -) 10 mg PO DAILY [facility] Last Admin: 02/12/17 14:28 Dose: 10 mg - Objective Vital Signs: Vital Signs Temperature 98.4 F 02/13/17 09:26 Pulse Rate 67 02/13/17 09:26 Respiratory Rate 18 02/13/17 09:26 Blood Pressure 143/68 02/13/17 09:26 O2 Sat by Pulse Oximetry (%) 96 02/12/17 21:00 Constitutional: Yes: No Distress Cardiovascular: Yes: Regular Rate and Rhythm Respiratory: Yes: CTA Bilaterally Gastrointestinal: Yes: Soft Edema: No Neurological: Yes: Alert Labs: CBC, BMP 02/13/17 08:00 02/13/17 08:00 INR, PTT INR 1.42 (0.82-1.09) H 02/13/17 08:00 Laboratory Tests 02/13/17 02/13/17 02/13/17 08:00 08:00 08:00 WBC 5.6 Hgb 12.3 Plt Count 162 INR 1.42 H PTT (Actin FS) 31.8 Sodium 140 Potassium 4.1 Creatinine 0.9 Assessment/Plan Assessment/Plan 66M w/ h/p Reop AVR (mechanical, on AC), ascending aortic aneurysm graft, CVA, PPM ([facility]) admitted for biopsy abdominal mass due to concern it may represent a different form of lymphoma than was recently diagnosed in the groin. 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 REC: Resume heparin gtts and coumadin when safe to do so after bx until INR 2-3.
--- NOTE | 2017-02-13 10:22 | PN ---
Progress Note (short form) - Note Progress Note: Patient seen and examined. for procedure today chart reviewed. O/E: GENERAL: NAD HEENT: NCAT Lungs: CTA b/l Abdomen: Obese NEuro: AAOX3. Last Vital Signs Temp Pulse Resp BP Pulse Ox 98.4 F 67 18 153/87 100 02/13/17 09:26 02/13/17 10:05 02/13/17 10:05 02/13/17 10:05 02/13/17 10:05 CBC, BMP 02/13/17 08:00 02/13/17 08:00 Current Medications Generic Name Dose Route Start Last Admin Trade Name Freq PRN Reason Stop Dose Admin Acetaminophen 650 mg 02/11/17 14:52 Tylenol - PO Q6H PRN FEVER OR PAIN Amlodipine Besylate 2.5 mg 02/12/17 10:00 02/12/17 10:15 Norvasc - PO 2.5 mg DAILY DIANE Administration Docusate Sodium 300 mg 02/11/17 22:00 02/12/17 21:21 Colace - PO 300 mg HS DIANE Administration Heparin Sodium (Porcine) 5,000 unit 02/12/17 09:34 Heparin - IVPUSH PRN PRN Heparin Sodium (Porcine) 1,000 unit 02/12/17 09:34 02/12/17 20:36 Heparin - IVPUSH 1,000 unit PRN PRN Administration IV Flush 10 ml 02/12/17 13:42 Gayle-Cath Flush IVPUSH PRN PRN Protocol Heparin Sodium/Dextrose 25,000 units in 500 mls @ 20 mls/hr 02/12/17 09:30 20:40 Heparin Infusion - IVPB 1,100 unit/hr TITR DIANE 22 mls/hr Protocol Administration 1,000 UNIT/HR Levetiracetam 500 mg 02/11/17 15:00 02/12/17 21:22 Keppra - PO 500 mg BID DIANE Administration Nortriptyline HCl 10 mg 02/11/17 22:00 02/12/17 21:22 Pamelor - PO 10 mg HS DIANE Administration Oxycodone HCl 5 mg 02/11/17 14:52 Roxicodone - PO Q6H PRN PAIN Solifenacin 10 mg 02/12/17 10:00 02/12/17 14:28 Vesicare - PO 10 mg DAILY DIANE Administration Heparin drip to be continued for IR guided biopsy today of the RP bulky LAD Port on Thursday. will continue current treatment. Problem List - Problems (1) Lymphoma Code(s): C85.90 - NON-HODGKIN LYMPHOMA, UNSPECIFIED, UNSPECIFIED SITE Qualifiers: Lymphoma type: non-Hodgkin Non-Hodgkin lymphoma type: follicular Follicular lymphoma grade: grade II Lymphoma site: lower extremity Qualified Code(s): C82.15 - Follicular lymphoma grade II, lymph nodes of inguinal region and lower limb (2) Retroperitoneal mass Code(s): R19.00 - INTRA-ABD AND PELVIC SWELLING, MASS AND LUMP, UNSP SITE (3) History of prosthetic aortic valve Code(s): Z95.2 - PRESENCE OF PROSTHETIC HEART VALVE (4) Pacemaker Code(s): Z95.0 - PRESENCE OF CARDIAC PACEMAKER (5) Old cerebrovascular accident (CVA) without late effect Code(s): Z86.73 - PRSNL HX OF TIA (TIA), AND CEREB INFRC W/O RESID DEFICITS
--- NOTE | 2017-02-13 11:21 | PN ---
Progress Note, Physician Chief Complaint: AWAKE ALERT RETURNING FROM NEEDLE BIOPSY WITH INTERVENTIONAL RADIOLOGY - Current Medication List Current Medications: Active Medications Acetaminophen (Tylenol -) 650 mg PO Q6H PRN PRN Reason: FEVER OR PAIN Amlodipine Besylate (Norvasc -) 2.5 mg PO DAILY COUNTS [facility]CLUDE 234 BEDS AT THE [facility] Last Admin: 02/12/17 10:15 Dose: 2.5 mg Docusate Sodium (Colace -) 300 mg PO HS COUNTS INCLUDE 234 BEDS AT THE [facility] Last Admin: 02/12/17 21:21 Dose: 300 mg Heparin Sodium (Porcine) (Heparin -) 5,000 unit IVPUSH PRN PRN Heparin Sodium (Porcine) (Heparin -) 1,000 unit IVPUSH PRN PRN Last Admin: 02/12/17 20:36 Dose: 1,000 unit IV Flush (Gayle-Cath Flush) 10 ml IVPUSH PRN PRN PRN Reason: Protocol Heparin Sodium/Dextrose (Heparin Infusion -) 25,000 units in 500 mls @ 20 mls/ hr IVPB TITR DIANE; 1,000 UNIT/HR PRN Reason: Protocol Last Admin: 02/12/17 20:40 Dose: 1,100 unit/hr, 22 mls/hr Levetiracetam (Keppra -) 500 mg PO BID COUNTS INCLUDE 234 BEDS AT THE [facility] Last Admin: 02/12/17 21:22 Dose: 500 mg Nortriptyline HCl (Pamelor -) 10 mg PO HS COUNTS INCLUDE 234 BEDS AT THE [facility] Last Admin: 02/12/17 21:22 Dose: 10 mg Oxycodone HCl (Roxicodone -) 5 mg PO Q6H PRN PRN Reason: PAIN Solifenacin (Vesicare -) 10 mg PO DAILY COUNTS INCLUDE 234 BEDS AT THE [facility] Last Admin: 02/12/17 14:28 Dose: 10 mg - Objective Vital Signs: Vital Signs Temperature 98.4 F 02/13/17 09:26 Pulse Rate 67 02/13/17 10:44 Respiratory Rate 17 02/13/17 10:44 Blood Pressure 156/91 02/13/17 10:44 O2 Sat by Pulse Oximetry (%) 100 02/13/17 10:44 Constitutional: Yes: Mild Distress Eyes: Yes: WNL HENT: Yes: WNL Neck: Yes: WNL Cardiovascular: Yes: Pulse Irregular, Murmur Respiratory: Yes: WNL Gastrointestinal: Yes: Tenderness Genitourinary: Yes: WNL Musculoskeletal: Yes: Muscle Weakness Edema: Yes Peripheral Pulses WNL: Yes Integumentary: Yes: WNL Wound/Incision: Yes: Clean/Dry Neurological: Yes: Pre-Existing Deficit ...Motor Strength: LLE, RLE Psychiatric: Yes: WNL Labs: CBC, BMP 02/13/17 08:00 02/13/17 08:00 INR, PTT INR 1.42 (0.82-1.09) H 02/13/17 08:00 Problem List - Problems (1) Mass Code(s): R22.9 - LOCALIZED SWELLING, MASS AND LUMP, UNSPECIFIED (2) Retroperitoneal mass Code(s): R19.00 - INTRA-ABD AND PELVIC SWELLING, MASS AND LUMP, UNSP SITE (3) HTN (hypertension) Code(s): I10 - ESSENTIAL (PRIMARY) HYPERTENSION (4) History of prosthetic aortic valve Code(s): Z95.2 - PRESENCE OF PROSTHETIC HEART VALVE (5) Lymphoma Code(s): C85.90 - NON-HODGKIN LYMPHOMA, UNSPECIFIED, UNSPECIFIED SITE Qualifiers: Lymphoma type: non-Hodgkin Non-Hodgkin lymphoma type: follicular Follicular lymphoma grade: grade II Lymphoma site: lower extremity Qualified Code(s): C82.15 - Follicular lymphoma grade II, lymph nodes of inguinal region and lower limb (6) Old cerebrovascular accident (CVA) without late effect Code(s): Z86.73 - PRSNL HX OF TIA (TIA), AND CEREB INFRC W/O RESID DEFICITS Assessment/Plan S/P BIOPSY OF LYMPHNODE WITH INTERVENTIONAL RADIOLOGY AWAIT PATHOLOGY PORT TO BE PLACED THURSDAY HEPARIN IV FOR NOW THEN BRIDGE TO COUMADIN
[2017-02-13] MEDS ORDERED: PT OWN MED DRAWER 7, Y5N ONE (11:24)
[2017-02-13] MEDS: amLODIPine BESYLATE 2.5 MG TABLET (FP) PO SCH (12:24)
[2017-02-13] MEDS: levETIRAcetam 500 MG TABLET (FP) PO SCH ×2 (12:24→21:51)
[2017-02-13] MEDS: SOLIFENACIN SUCCINATE 5 MG TAB (FP) PO SCH (12:24)
[2017-02-13] MEDS: HEPARIN INFUSION - 25,000 UNITS/500 ML INFUS.BAG IVPB SCH (14:10)
[2017-02-13] MEDS: HEPARIN NA (PORCINE) 5,000 UNITS/ML 1ML VIAL IVPUSH PRN (14:11)
[2017-02-13] MEDS: DOCUSATE SODIUM 100 MG CAPSULE (FP) PO SCH (21:51)
[2017-02-13] MEDS: NORTRIPTYLINE HCL 10 MG CAPSULE PO SCH (21:52)
[2017-02-14 07:30] LABS: HEMOGLOBIN 13.5 GM/dL (11.7-16.9); MCH 32.6 pg (25.7-33.7); MCHC 33.9 g/dl (32.0-35.9); MEAN CELL VOLUME 96.2 fl (80-96); MEAN PLT VOLUME 9.2 fl (7.5-11.1); PLATELET COUNT 155 K/MM3 (134-434); RBC 4.15 M/mm3 (4.00-5.60); RDW 13.7 % (11.9-15.9); WHITE BLOOD COUNT 6.1 K/mm3 (4.0-10.0)
[2017-02-14] MEDS: HEPARIN NA (PORCINE) 5,000 UNITS/ML 1ML VIAL IVPUSH PRN (08:34)
[2017-02-14] MEDS ORDERED: PT OWN MED DRAWER 7, Y5N ONE ×2 (08:41→21:30)
[2017-02-14] MEDS: HEPARIN INFUSION - 25,000 UNITS/500 ML INFUS.BAG IVPB SCH ×2 (10:40→11:40)
[2017-02-14] MEDS: SOLIFENACIN SUCCINATE 5 MG TAB (FP) PO SCH (10:44)
[2017-02-14] MEDS: amLODIPine BESYLATE 2.5 MG TABLET (FP) PO SCH (10:44)
[2017-02-14] MEDS: levETIRAcetam 500 MG TABLET (FP) PO SCH ×2 (10:44→21:55)
--- NOTE | 2017-02-14 12:56 | PN ---
Progress Note, Physician Chief Complaint: AWAKE ALERT NAD - Current Medication List Current Medications: Active Medications Acetaminophen (Tylenol -) 650 mg PO Q6H PRN PRN Reason: FEVER OR PAIN Amlodipine Besylate (Norvasc -) 2.5 mg PO DAILY [facility] Last Admin: 02/14/17 10:44 Dose: 2.5 mg Docusate Sodium (Colace -) 300 mg PO HS [facility] Last Admin: 02/13/17 21:51 Dose: 300 mg Heparin Sodium (Porcine) (Heparin -) 5,000 unit IVPUSH PRN PRN Last Admin: 02/14/17 08:34 Dose: 5,000 unit Heparin Sodium (Porcine) (Heparin -) 1,000 unit IVPUSH PRN PRN Last Admin: 02/12/17 20:36 Dose: 1,000 unit IV Flush (Gayle-Cath Flush) 10 ml IVPUSH PRN PRN PRN Reason: Protocol Heparin Sodium/Dextrose (Heparin Infusion -) 25,000 units in 500 mls @ 20 mls/ hr IVPB TITR DIANE; 1,000 UNIT/HR PRN Reason: Protocol Last Admin: 02/14/17 11:40 Dose: 1,400 unit/hr, 28 mls/hr Levetiracetam (Keppra -) 500 mg PO BID [facility] Last Admin: 02/14/17 10:44 Dose: 500 mg Nortriptyline HCl (Pamelor -) 10 mg PO HS [facility] Last Admin: 02/13/17 21:52 Dose: 10 mg Oxycodone HCl (Roxicodone -) 5 mg PO Q6H PRN PRN Reason: PAIN Solifenacin (Vesicare -) 10 mg PO DAILY [facility] Last Admin: 02/14/17 10:44 Dose: 10 mg - Objective Vital Signs: Vital Signs Temperature 97.3 F L 02/14/17 06:00 Pulse Rate 67 02/14/17 10:49 Respiratory Rate 18 02/14/17 10:49 Blood Pressure 118/63 02/14/17 10:49 O2 Sat by Pulse Oximetry (%) 98 02/13/17 21:00 Constitutional: Yes: No Distress Eyes: Yes: WNL HENT: Yes: WNL Neck: Yes: WNL Cardiovascular: Yes: Murmur Respiratory: Yes: WNL Gastrointestinal: Yes: WNL Genitourinary: Yes: WNL Musculoskeletal: Yes: Muscle Weakness Extremities: Yes: WNL Edema: Yes Edema: LLE: 1+, RLE: 1+ Peripheral Pulses WNL: Yes Integumentary: Yes: WNL Wound/Incision: Yes: Other Neurological: Yes: Pre-Existing Deficit ...Motor Strength: LLE, RLE Psychiatric: Yes: WNL Labs: CBC, BMP 02/14/17 06:00 02/13/17 08:00 INR, PTT INR 1.42 (0.82-1.09) H 02/13/17 08:00 Problem List - Problems (1) Mass Code(s): R22.9 - LOCALIZED SWELLING, MASS AND LUMP, UNSPECIFIED (2) Retroperitoneal mass Code(s): R19.00 - INTRA-ABD AND PELVIC SWELLING, MASS AND LUMP, UNSP SITE (3) HTN (hypertension) Code(s): I10 - ESSENTIAL (PRIMARY) HYPERTENSION (4) History of prosthetic aortic valve Code(s): Z95.2 - PRESENCE OF PROSTHETIC HEART VALVE (5) Lymphoma Code(s): C85.90 - NON-HODGKIN LYMPHOMA, UNSPECIFIED, UNSPECIFIED SITE Qualifiers: Lymphoma type: non-Hodgkin Non-Hodgkin lymphoma type: follicular Follicular lymphoma grade: grade II Lymphoma site: lower extremity Qualified Code(s): C82.15 - Follicular lymphoma grade II, lymph nodes of inguinal region and lower limb (6) Old cerebrovascular accident (CVA) without late effect Code(s): Z86.73 - PRSNL HX OF TIA (TIA), AND CEREB INFRC W/O RESID DEFICITS Assessment/Plan IV HEPARIN FOR NOW BRIDGE BACK TO COUMADIN AFTER PORT IS PLACED THURSDAY AWAIT BIOPSY RESULT OF ABD LYMPH NODE
--- NOTE | 2017-02-14 15:38 | PN ---
Progress Note (short form) - Note Progress Note: Chief Complaint: Events noted, noted reviewed. denies any chest discomfort or dyspnea History of Present Illness: Seen and examined. Events noted, noted reviewed. denies any chest discomfort or dyspnea Remains on IV heparin, Coumadin therapy re-initiation is to be deferred pending port insertion, ideally low dose Coumadin therapy re-initiation is recommended Assuming patient's cardiovascular care from Dr. 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 Alexis Wallace [facility] [place] - Current Medication List Current Medications Acetaminophen (Tylenol -) 650 mg PO Q6H PRN PRN Reason: FEVER OR PAIN Amlodipine Besylate (Norvasc -) 2.5 mg PO DAILY [facility] Last Admin: 02/14/17 10:44 Dose: 2.5 mg Docusate Sodium (Colace -) 300 mg PO HS [facility] Last Admin: 02/13/17 21:51 Dose: 300 mg Heparin Sodium (Porcine) (Heparin -) 5,000 unit IVPUSH PRN PRN Last Admin: 02/14/17 08:34 Dose: 5,000 unit Heparin Sodium (Porcine) (Heparin -) 1,000 unit IVPUSH PRN PRN Last Admin: 02/12/17 20:36 Dose: 1,000 unit IV Flush (Gayle-Cath Flush) 10 ml IVPUSH PRN PRN PRN Reason: Protocol Heparin Sodium/Dextrose (Heparin Infusion -) 25,000 units in 500 mls @ 20 mls/ hr IVPB TITR DIANE; 1,000 UNIT/HR PRN Reason: Protocol Last Titration: 02/14/17 14:09 Dose: 1,350 unit/hr, 27 mls/hr Levetiracetam (Keppra -) 500 mg PO BID [facility] Last Admin: 02/14/17 10:44 Dose: 500 mg Nortriptyline HCl (Pamelor -) 10 mg PO HS [facility] Last Admin: 02/13/17 21:52 Dose: 10 mg Oxycodone HCl (Roxicodone -) 5 mg PO Q6H PRN PRN Reason: PAIN Solifenacin (Vesicare -) 10 mg PO DAILY [facility] Last Admin: 02/14/17 10:44 Dose: 10 mg - Review of Systems Constitutional: denies: Chills, Fever Cardiovascular: As noted above Respiratory: denies: Cough Or Sputum Production Gastrointestinal: denies: Nausea, Vomiting, Diarrhea, Constipation or Abdominal Pain Genitourinary: denies: Dysuria Neurological: denies: Dizziness or Headaches Endocrine: denies: Intolerance to Cold, Intolerance to Heat - Objective Vital Signs: Last Vital Signs Temp Pulse Resp BP Pulse Ox 98.5 F 67 20 120/68 98 02/14/17 14:46 02/14/17 14:46 02/14/17 14:46 02/14/17 14:46 02/13/17 21:00 Intake & Output 02/11/17 02/12/17 02/13/17 02/14/17 23:59 23:59 23:59 23:59 Intake Total 044 101 7117 Output Total 1300 400 Balance 560 -928 924 Weight 252 lb 12.8 oz 248 lb 14.4 oz 248 lb 3 oz Constitutional: No Distress, Calm, Thin Neck: Supple Negative JVD Respiratory: Diminished Breath Sounds at the Bases Cardiovascular: S1 Mechanical click Regular Rate and Rhythm Grade 2/6 systolic ejection murmur Gastrointestinal: Soft Benign Normal Bowel Sounds Ext: No Edema Labs: CBC, BMP 02/14/17 06:00 02/13/17 08:00 INR, PTT INR 1.42 (0.82-1.09) H 02/13/17 08:00 Assessment/Plan ASSESSMENT: 1. Systolic left ventricular dysfunction with chronic class 0-I [place] [employer] classification left ventricular failure, compensated/euvolemic. 2. Post re-operative AVR (mechanical aortic valve prosthesis), with evidence of moderate to severe eccentric aortic valve regurgitation ( study to be reviewed ) 3. Ascending thoracic aortic aneurysm post-surgical repair 4. AV block post permanent pacemaker implantation [employer] device, device at the [facility] for elective replacement as outpatient 5. Persistent atrial fibrillation [id number] score of 5 on A/C therapy with Coumadin/Heparin 6. History of cerebro-vascular disease 7. HTN 8. Abdominal mass post biopsy, pathology pending 9. History of lymphoma PLAN: 1. Continue Norvasc 2. Continue A/C therapy with Heparin, and would recommend resumption of Coumadin therapy (Low dose) Pending port insertion and this coming week Stephanie Miranda M.D.
[2017-02-14] MEDS: DOCUSATE SODIUM 100 MG CAPSULE (FP) PO SCH (21:55)
[2017-02-14] MEDS: NORTRIPTYLINE HCL 10 MG CAPSULE PO SCH (21:55)
[2017-02-15] MEDS: HEPARIN INFUSION - 25,000 UNITS/500 ML INFUS.BAG IVPB SCH ×2 (06:21→10:19)
[2017-02-15 07:11] LABS: HEMATOCRIT 35.6 % (35.4-49); MCH 32.4 pg (25.7-33.7); MCHC 33.8 g/dl (32.0-35.9); MEAN CELL VOLUME 95.9 fl (80-96); MEAN PLT VOLUME 8.9 fl (7.5-11.1); PLATELET COUNT 145 K/MM3 (134-434); RBC 3.71 M/mm3 (4.00-5.60); RDW 13.7 % (11.9-15.9); WHITE BLOOD COUNT 6.3 K/mm3 (4.0-10.0)
[2017-02-15] MEDS ORDERED: PT OWN MED DRAWER 7, Y5N ONE (10:05)
[2017-02-15] MEDS: levETIRAcetam 500 MG TABLET (FP) PO SCH ×2 (10:20→22:01)
[2017-02-15] MEDS: amLODIPine BESYLATE 2.5 MG TABLET (FP) PO SCH (10:20)
[2017-02-15] MEDS: SOLIFENACIN SUCCINATE 5 MG TAB (FP) PO SCH (10:21)
--- NOTE | 2017-02-15 10:49 | PN ---
Progress Note, Physician Chief Complaint: AWAKE NAD - Current Medication List Current Medications: Active Medications Acetaminophen (Tylenol -) 650 mg PO Q6H PRN PRN Reason: FEVER OR PAIN Amlodipine Besylate (Norvasc -) 2.5 mg PO DAILY [facility] Last Admin: 02/15/17 10:20 Dose: 2.5 mg Docusate Sodium (Colace -) 300 mg PO HS [facility] Last Admin: 02/14/17 21:55 Dose: 300 mg Heparin Sodium (Porcine) (Heparin -) 5,000 unit IVPUSH PRN PRN Last Admin: 02/14/17 08:34 Dose: 5,000 unit Heparin Sodium (Porcine) (Heparin -) 1,000 unit IVPUSH PRN PRN Last Admin: 02/12/17 20:36 Dose: 1,000 unit IV Flush (Gayle-Cath Flush) 10 ml IVPUSH PRN PRN PRN Reason: Protocol Heparin Sodium/Dextrose (Heparin Infusion -) 25,000 units in 500 mls @ 20 mls/ hr IVPB TITR DIANE; 1,000 UNIT/HR PRN Reason: Protocol Last Admin: 02/15/17 10:19 Dose: Not Given Levetiracetam (Keppra -) 500 mg PO BID [facility] Last Admin: 02/15/17 10:20 Dose: 500 mg Nortriptyline HCl (Pamelor -) 10 mg PO [facility] Last Admin: 02/14/17 21:55 Dose: 10 mg Oxycodone HCl (Roxicodone -) 5 mg PO Q6H PRN PRN Reason: PAIN Solifenacin (Vesicare -) 10 mg PO DAILY [facility] Last Admin: 02/15/17 10:21 Dose: 10 mg - Objective Vital Signs: Vital Signs Temperature 98 F 02/15/17 10:00 Pulse Rate 67 02/15/17 10:00 Respiratory Rate 18 02/15/17 10:00 Blood Pressure 116/63 02/15/17 10:00 O2 Sat by Pulse Oximetry (%) 97 02/15/17 09:00 Constitutional: Yes: No Distress Eyes: Yes: WNL HENT: Yes: WNL Neck: Yes: WNL Cardiovascular: Yes: Pulse Irregular, Murmur Respiratory: Yes: WNL Gastrointestinal: Yes: WNL Genitourinary: Yes: WNL Musculoskeletal: Yes: Muscle Weakness Extremities: Yes: WNL Edema: Yes Edema: LLE: Trace, RLE: Trace Peripheral Pulses WNL: Yes Integumentary: Yes: WNL Wound/Incision: Yes: Clean/Dry Neurological: Yes: Pre-Existing Deficit ...Motor Strength: LLE, RLE Psychiatric: Yes: Other Labs: CBC, BMP 02/15/17 06:00 02/13/17 08:00 INR, PTT INR 1.42 (0.82-1.09) H 02/13/17 08:00 Problem List - Problems (1) Mass Code(s): R22.9 - LOCALIZED SWELLING, MASS AND LUMP, UNSPECIFIED (2) Retroperitoneal mass Code(s): R19.00 - INTRA-ABD AND PELVIC SWELLING, MASS AND LUMP, UNSP SITE (3) HTN (hypertension) Code(s): I10 - ESSENTIAL (PRIMARY) HYPERTENSION (4) History of prosthetic aortic valve Code(s): Z95.2 - PRESENCE OF PROSTHETIC HEART VALVE (5) Lymphoma Code(s): C85.90 - NON-HODGKIN LYMPHOMA, UNSPECIFIED, UNSPECIFIED SITE Qualifiers: Lymphoma type: non-Hodgkin Non-Hodgkin lymphoma type: follicular Follicular lymphoma grade: grade II Lymphoma site: lower extremity Qualified Code(s): C82.15 - Follicular lymphoma grade II, lymph nodes of inguinal region and lower limb (6) Old cerebrovascular accident (CVA) without late effect Code(s): Z86.73 - PRSNL HX OF TIA (TIA), AND CEREB INFRC W/O RESID DEFICITS Assessment/Plan PORT PLACEMENT FOR CHEMOTHERAPY TOMORROW AM STOP HEPARIN IV TONIGHT AT MIDNIGHT START HALF HIS USUALL COUMADIN DOSE AT 3MG TONIGHT OOB TO CHAIR BRIDGE INR TO 3.0 FOR DISCHARGE THIS WEEK
--- NOTE | 2017-02-15 11:37 | PN ---
Progress Note (short form) - Note Progress Note: Chief Complaint: Events noted, noted reviewed. sitting in a chair, denies any chest discomfort or dyspnea History of Present Illness: Seen and examined. Events noted, noted reviewed. sitting in a chair, denies any chest discomfort or dyspnea Remains on IV heparin, Coumadin therapy re-initiation is to be deferred pending port insertion, ideally low dose Coumadin therapy re-initiation is recommended, as outlined in yesterday's note - Current Medication List Current Medications Acetaminophen (Tylenol -) 650 mg PO Q6H PRN PRN Reason: FEVER OR PAIN Amlodipine Besylate (Norvasc -) 2.5 mg PO DAILY [facility] Last Admin: 02/15/17 10:20 Dose: 2.5 mg Docusate Sodium (Colace -) 300 mg PO HS [facility] Last Admin: 02/14/17 21:55 Dose: 300 mg Heparin Sodium (Porcine) (Heparin -) 5,000 unit IVPUSH PRN PRN Last Admin: 02/14/17 08:34 Dose: 5,000 unit Heparin Sodium (Porcine) (Heparin -) 1,000 unit IVPUSH PRN PRN Last Admin: 02/12/17 20:36 Dose: 1,000 unit IV Flush (Gayle-Cath Flush) 10 ml IVPUSH PRN PRN PRN Reason: Protocol Heparin Sodium/Dextrose (Heparin Infusion -) 25,000 units in 500 mls @ 20 mls/ hr IVPB TITR DIANE; 1,000 UNIT/HR PRN Reason: Protocol Last Admin: 02/15/17 10:19 Dose: Not Given Levetiracetam (Keppra -) 500 mg PO BID [facility] Last Admin: 02/15/17 10:20 Dose: 500 mg Nortriptyline HCl (Pamelor -) 10 mg PO HS [facility] Last Admin: 02/14/17 21:55 Dose: 10 mg Oxycodone HCl (Roxicodone -) 5 mg PO Q6H PRN PRN Reason: PAIN Solifenacin (Vesicare -) 10 mg PO DAILY [facility] Last Admin: 02/15/17 10:21 Dose: 10 mg Warfarin Sodium (Coumadin -) 3 mg PO DAILY@1800 DIANE - Review of Systems Constitutional: denies: Chills, Fever Cardiovascular: As noted above Respiratory: denies: Cough Or Sputum Production Gastrointestinal: denies: Nausea, Vomiting, Diarrhea, Constipation or Abdominal Pain Genitourinary: denies: Dysuria Neurological: denies: Dizziness or Headaches Endocrine: denies: Intolerance to Cold, Intolerance to Heat - Objective Vital Signs: Last Vital Signs Temp Pulse Resp BP Pulse Ox 98 F 67 18 116/63 97 02/15/17 10:00 02/15/17 10:00 02/15/17 10:00 02/15/17 10:00 02/15/17 09:00 Intake & Output 02/12/17 02/13/17 02/14/17 02/15/17 23:59 23:59 23:59 23:59 Intake Total 924 320 7908 200 Output Total 1300 600 700 Balance 560 -928 964 -500 Weight 248 lb 14.4 oz 248 lb 3 oz 249 lb 8 oz Constitutional: No Distress, Calm, Thin Neck: Supple Negative JVD Respiratory: Diminished Breath Sounds at the Bases Cardiovascular: S1 Mechanical click Regular Rate and Rhythm Grade 2/6 systolic ejection murmur Gastrointestinal: Soft Benign Normal Bowel Sounds Ext: No Edema Labs: CBC, BMP 02/15/17 06:00 02/13/17 08:00 Assessment/Plan ASSESSMENT: 1. Systolic left ventricular dysfunction with chronic class 0-I [place] [employer] classification left ventricular failure, compensated/euvolemic. 2. Post re-operative AVR (mechanical aortic valve prosthesis), with evidence of moderate to severe eccentric aortic valve regurgitation ( echocardiography study to be reviewed ) 3. Ascending thoracic aortic aneurysm post-surgical repair 4. AV block post permanent pacemaker implantation [employer] device, device at [facility] for elective replacement as outpatient 5. Persistent atrial fibrillation [id number] score of 5 on A/C therapy with Coumadin/Heparin 6. History of cerebro-vascular disease 7. HTN 8. Abdominal mass post biopsy, pathology pending 9. History of lymphoma PLAN: 1. Continue Norvasc 2. As outlined above continue A/C therapy with Heparin, and would recommend resumption of Coumadin therapy (Low dose) Pending port insertion this coming week Stephanie Miranda M.D.
[2017-02-15] MEDS: WARFARIN NA 3 MG TABLET PO SCH ×2 (14:07→17:41)
[2017-02-15 15:30] LABS: INR 1.13 (0.82-1.09); PROTHROMBIN TIME (PATIENT) 12.8 SEC (9.98-11.88)
[2017-02-15] MEDS: DOCUSATE SODIUM 100 MG CAPSULE (FP) PO SCH (22:00)
[2017-02-15] MEDS: NORTRIPTYLINE HCL 10 MG CAPSULE PO SCH (22:01)
[2017-02-16 07:14] LABS: HEMATOCRIT 35.1 % (35.4-49); HEMOGLOBIN 11.8 GM/dL (11.7-16.9); MCH 32.5 pg (25.7-33.7); MCHC 33.7 g/dl (32.0-35.9); MEAN CELL VOLUME 96.6 fl (80-96); MEAN PLT VOLUME 8.8 fl (7.5-11.1); PLATELET COUNT 141 K/MM3 (134-434); RBC 3.63 M/mm3 (4.00-5.60); RDW 13.9 % (11.9-15.9); WHITE BLOOD COUNT 5.5 K/mm3 (4.0-10.0)
[2017-02-16] MEDS: amLODIPine BESYLATE 2.5 MG TABLET (FP) PO SCH (09:44)
[2017-02-16] MEDS: levETIRAcetam 500 MG TABLET (FP) PO SCH ×2 (09:44→21:49)
[2017-02-16] MEDS: SOLIFENACIN SUCCINATE 5 MG TAB (FP) PO SCH (09:44)
--- NOTE | 2017-02-16 12:13 | PN ---
Progress Note, Physician Chief Complaint: Not in distress History of Present Illness: Patient was seen and examined. Awake and alert. Chart was reviewed Denies chest pain, SOB or palpitations Await port insertion - Current Medication List Current Medications: Active Medications Acetaminophen (Tylenol -) 650 mg PO Q6H PRN PRN Reason: FEVER OR PAIN Amlodipine Besylate (Norvasc -) 2.5 mg PO DAILY [facility] Last Admin: 02/16/17 09:44 Dose: 2.5 mg Docusate Sodium (Colace -) 300 mg PO [facility] Last Admin: 02/15/17 22:00 Dose: 300 mg Heparin Sodium (Porcine) (Heparin -) 5,000 unit IVPUSH PRN PRN Last Admin: 02/14/17 08:34 Dose: 5,000 unit Heparin Sodium (Porcine) (Heparin -) 1,000 unit IVPUSH PRN PRN Last Admin: 02/12/17 20:36 Dose: 1,000 unit IV Flush (Gayle-Cath Flush) 10 ml IVPUSH PRN PRN PRN Reason: Protocol Heparin Sodium/Dextrose (Heparin Infusion -) 25,000 units in 500 mls @ 20 mls/ hr IVPB TITR DIANE; 1,000 UNIT/HR PRN Reason: Protocol Last Admin: 02/15/17 10:19 Dose: Not Given Levetiracetam (Keppra -) 500 mg PO BID [facility] Last Admin: 02/16/17 09:44 Dose: 500 mg Nortriptyline HCl (Pamelor -) 10 mg PO [facility] Last Admin: 02/15/17 22:01 Dose: 10 mg Oxycodone HCl (Roxicodone -) 5 mg PO Q6H PRN PRN Reason: PAIN Solifenacin (Vesicare -) 10 mg PO DAILY [facility] Last Admin: 02/16/17 09:44 Dose: Not Given Warfarin Sodium (Coumadin -) 3 mg PO DAILY@1800 [facility] Last Admin: 02/15/17 17:41 Dose: 3 mg - Objective Vital Signs: Vital Signs Temperature 98.2 F 02/16/17 09:48 Pulse Rate 67 02/16/17 09:48 Respiratory Rate 18 02/16/17 09:48 Blood Pressure 135/79 02/16/17 09:48 O2 Sat by Pulse Oximetry (%) 96 02/15/17 21:00 Neck: Yes: Supple Cardiovascular: Yes: Regular Rate and Rhythm, Murmur (2/6 SM), S1, S2, Other ( Mechanical click) Respiratory: Yes: CTA Bilaterally Gastrointestinal: Yes: Normal Bowel Sounds, Soft. No: Tenderness Edema: No Labs: CBC, BMP 02/16/17 05:35 INR 1.13 (0.82-1.09) 02/15/17 14:25 Problem List - Problems (1) Retroperitoneal mass Code(s): R19.00 - INTRA-ABD AND PELVIC SWELLING, MASS AND LUMP, UNSP SITE (2) HTN (hypertension) Code(s): I10 - ESSENTIAL (PRIMARY) HYPERTENSION Qualifiers: Hypertension type: essential hypertension Qualified Code(s): I10 - Essential (primary) hypertension (3) History of prosthetic aortic valve Code(s): Z95.2 - PRESENCE OF PROSTHETIC HEART VALVE (4) Lymphoma Code(s): C85.90 - NON-HODGKIN LYMPHOMA, UNSPECIFIED, UNSPECIFIED SITE Qualifiers: Lymphoma type: non-Hodgkin Non-Hodgkin lymphoma type: follicular Follicular lymphoma grade: grade II Lymphoma site: lower extremity Qualified Code(s): C82.15 - Follicular lymphoma grade II, lymph nodes of inguinal region and lower limb (5) Old cerebrovascular accident (CVA) without late effect Code(s): Z86.73 - PRSNL HX OF TIA (TIA), AND CEREB INFRC W/O RESID DEFICITS (6) Pacemaker Code(s): Z95.0 - PRESENCE OF CARDIAC PACEMAKER (7) Thoracic aortic aneurysm Code(s): I71.2 - THORACIC AORTIC ANEURYSM, WITHOUT RUPTURE Qualifiers: Presence of rupture: without rupture Qualified Code(s): I71.2 - Thoracic aortic aneurysm, without rupture (8) Atrial fibrillation Code(s): I48.91 - UNSPECIFIED ATRIAL FIBRILLATION Qualifiers: Atrial fibrillation type: persistent Qualified Code(s): I48.1 - Persistent atrial fibrillation Assessment/Plan 1. Systolic left ventricular dysfunction with chronic class 0-I [place] [employer] classification left ventricular failure, compensated/euvolemic. 2. Post re-operative AVR (mechanical aortic valve prosthesis), with evidence of moderate to severe eccentric aortic valve regurgitation 3. Ascending thoracic aortic aneurysm post-surgical repair 4. AV block post permanent pacemaker implantation [employer] device, device at [facility] for elective replacement as outpatient 5. Persistent atrial fibrillation [id number] score of 5 on A/C therapy with Coumadin/Heparin 6. History of cerebro-vascular disease 7. HTN 8. Abdominal mass post biopsy, pathology pending 9. History of lymphoma PLAN: 1. Continue Norvasc 2. Resume Coumadin once port is inserted and in the interim continue Heparin drip 3. Patient has an appointment with Dr. Alex Beth of [facility] in regards to generator(battery) change on his pacemaker as outpatient (Feb 23) 4. Further management as per Oncology service Further plans are to follow Chiki Hutchison MD
[2017-02-16 17:04] LABS: INR 1.14 (0.82-1.09); PROTHROMBIN TIME (PATIENT) 12.9 SEC (9.98-11.88)
--- NOTE | 2017-02-16 17:46 | PN ---
Progress Note, Physician Chief Complaint: AWAKE PORT TO BE PLACED TOMORROW NAD - Current Medication List Current Medications: Active Medications Acetaminophen (Tylenol -) 650 mg PO Q6H PRN PRN Reason: FEVER OR PAIN Amlodipine Besylate (Norvasc -) 2.5 mg PO DAILY [facility] Last Admin: 02/16/17 09:44 Dose: 2.5 mg Docusate Sodium (Colace -) 300 mg PO HS [facility] Last Admin: 02/15/17 22:00 Dose: 300 mg Heparin Sodium (Porcine) (Heparin -) 5,000 unit IVPUSH PRN PRN Last Admin: 02/14/17 08:34 Dose: 5,000 unit Heparin Sodium (Porcine) (Heparin -) 1,000 unit IVPUSH PRN PRN Last Admin: 02/12/17 20:36 Dose: 1,000 unit IV Flush (Gayle-Cath Flush) 10 ml IVPUSH PRN PRN PRN Reason: Protocol Heparin Sodium/Dextrose (Heparin Infusion -) 25,000 units in 500 mls @ 20 mls/ hr IVPB TITR DIANE; 1,000 UNIT/HR PRN Reason: Protocol Last Admin: 02/15/17 10:19 Dose: Not Given Levetiracetam (Keppra -) 500 mg PO BID [facility] Last Admin: 02/16/17 09:44 Dose: 500 mg Nortriptyline HCl (Pamelor -) 10 mg PO HS [facility] Last Admin: 02/15/17 22:01 Dose: 10 mg Oxycodone HCl (Roxicodone -) 5 mg PO Q6H PRN PRN Reason: PAIN Solifenacin (Vesicare -) 10 mg PO DAILY [facility] Last Admin: 02/16/17 09:44 Dose: Not Given Warfarin Sodium (Coumadin -) 3 mg PO DAILY@1800 [facility] Last Admin: 02/15/17 17:41 Dose: 3 mg - Objective Vital Signs: Vital Signs Temperature 98.5 F 02/16/17 14:51 Pulse Rate 67 02/16/17 14:51 Respiratory Rate 18 02/16/17 14:51 Blood Pressure 115/63 02/16/17 14:51 O2 Sat by Pulse Oximetry (%) 97 02/16/17 09:00 Constitutional: Yes: No Distress Eyes: Yes: WNL HENT: Yes: WNL Neck: Yes: WNL Cardiovascular: Yes: Pulse Irregular, Murmur Respiratory: Yes: WNL Gastrointestinal: Yes: WNL Genitourinary: Yes: WNL Musculoskeletal: Yes: Muscle Pain Extremities: Yes: WNL Edema: Yes Peripheral Pulses WNL: Yes Integumentary: Yes: WNL, Pressure Ulcer Wound/Incision: Yes: Dressing Dry and Intact Neurological: Yes: Pre-Existing Deficit ...Motor Strength: LLE (LEFT GROIN TENDERNESS PREVIOUS BIOPSY SITE) Psychiatric: Yes: WNL Labs: CBC, BMP 02/16/17 05:35 02/13/17 08:00 INR, PTT INR 1.14 (0.82-1.09) 02/16/17 14:45 Problem List - Problems (1) Mass Code(s): R22.9 - LOCALIZED SWELLING, MASS AND LUMP, UNSPECIFIED (2) Retroperitoneal mass Code(s): R19.00 - INTRA-ABD AND PELVIC SWELLING, MASS AND LUMP, UNSP SITE (3) HTN (hypertension) Code(s): I10 - ESSENTIAL (PRIMARY) HYPERTENSION (4) History of prosthetic aortic valve Code(s): Z95.2 - PRESENCE OF PROSTHETIC HEART VALVE (5) Lymphoma Code(s): C85.90 - NON-HODGKIN LYMPHOMA, UNSPECIFIED, UNSPECIFIED SITE Qualifiers: Lymphoma type: non-Hodgkin Non-Hodgkin lymphoma type: follicular Follicular lymphoma grade: grade II Lymphoma site: lower extremity Qualified Code(s): C82.15 - Follicular lymphoma grade II, lymph nodes of inguinal region and lower limb (6) Old cerebrovascular accident (CVA) without late effect Code(s): Z86.73 - PRSNL HX OF TIA (TIA), AND CEREB INFRC W/O RESID DEFICITS Assessment/Plan SURGERY EVAL FOR LEFT GROIN BIOPSY SITE DR LOPEZ PORT PLACEMENT TOMORROW BRIDGE TO COUMADIN TOMORROW IV HEPARIN STOP AT MIDNIGHT
--- NOTE | 2017-02-16 17:58 | PN ---
Progress Note (short form) - Note Progress Note: Patient seen and examined Denies any complaints Last Vital Signs Temp Pulse Resp BP Pulse Ox 98.5 F 67 18 115/63 97 02/16/17 14:51 02/16/17 14:51 02/16/17 14:51 02/16/17 14:51 02/16/17 09:00 Cor: RSR, No murmurs, No gallops Lungs: Clear to P&A Abd: Soft, Normal bowel sounds, No organomegaly Ext:No significant edema Abnormal Lab Results 02/16/17 02/16/17 05:35 14:45 RBC 3.63 L Hct 35.1 L MCV 96.6 H PT with INR 12.90 H Active Medications Generic Name Dose Route Start Last Admin Trade Name Freq PRN Reason Stop Dose Admin Acetaminophen 650 mg 02/11/17 14:52 Tylenol - PO Q6H PRN FEVER OR PAIN Amlodipine Besylate 2.5 mg 02/12/17 10:00 02/16/17 09:44 Norvasc - PO 2.5 mg DAILY [facility] Administration Docusate Sodium 300 mg 02/11/17 22:00 02/15/17 22:00 Colace - PO 300 mg HS [facility]ANE Administration Heparin Sodium (Porcine) 5,000 unit 02/12/17 09:34 02/14/17 08:34 Heparin - IVPUSH 5,000 unit PRN PRN Administration Heparin Sodium (Porcine) 1,000 unit 02/12/17 09:34 02/12/17 20:36 Heparin - IVPUSH 1,000 unit PRN PRN Administration IV Flush 10 ml 02/12/17 13:42 Gayle-Cath Flush IVPUSH PRN PRN Protocol Heparin Sodium/Dextrose 25,000 units in 500 mls @ 20 mls/hr 02/12/17 09:30 10:19 Heparin Infusion - IVPB Not Given TITR DIANE Protocol 1,000 UNIT/HR Levetiracetam 500 mg 02/11/17 15:00 02/16/17 09:44 Keppra - PO 500 mg BID [facility] Administration Nortriptyline HCl 10 mg 02/11/17 22:00 02/15/17 22:01 Pamelor - PO 10 mg HS [facility] Administration Oxycodone HCl 5 mg 02/11/17 14:52 Roxicodone - PO Q6H PRN PAIN Solifenacin 10 mg 02/12/17 10:00 02/16/17 09:44 Vesicare - PO Not Given DAILY [facility] Warfarin Sodium 3 mg 02/15/17 11:00 02/15/17 17:41 Coumadin - PO 3 mg DAILY@1800 [facility] Administration A/P 66 y/o patient with 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
[2017-02-16] MEDS: WARFARIN NA 3 MG TABLET PO SCH (18:24)
[2017-02-16] MEDS: HEPARIN INFUSION - 25,000 UNITS/500 ML INFUS.BAG IVPB SCH ×2 (19:36→21:27)
[2017-02-16] MEDS: HEPARIN NA (PORCINE) 5,000 UNITS/ML 1ML VIAL IVPUSH PRN (21:27)
[2017-02-16] MEDS ORDERED: PT OWN MED DRAWER 7, Y5N ONE (21:35)
[2017-02-16] MEDS: DOCUSATE SODIUM 100 MG CAPSULE (FP) PO SCH (21:48)
[2017-02-16] MEDS: NORTRIPTYLINE HCL 10 MG CAPSULE PO SCH (21:49)
[2017-02-17 07:36] LABS: HEMATOCRIT 36.9 % (35.4-49); HEMOGLOBIN 12.3 GM/dL (11.7-16.9); MCH 32.3 pg (25.7-33.7); MCHC 33.2 g/dl (32.0-35.9); MEAN CELL VOLUME 97.2 fl (80-96); MEAN PLT VOLUME 8.8 fl (7.5-11.1); PLATELET COUNT 151 K/MM3 (134-434); RDW 13.7 % (11.9-15.9); WHITE BLOOD COUNT 6.6 K/mm3 (4.0-10.0)
[2017-02-17] MEDS ORDERED: CEFAZOLIN 1 GM/D5W 1 GM/50 ML BAG ONE (09:28)
[2017-02-17] MEDS ORDERED: PT OWN MED DRAWER 7, Y5N ONE (11:48)
[2017-02-17] MEDS: SOLIFENACIN SUCCINATE 5 MG TAB (FP) PO SCH (11:50)
[2017-02-17] MEDS: levETIRAcetam 500 MG TABLET (FP) PO SCH ×2 (11:50→22:12)
[2017-02-17] MEDS: amLODIPine BESYLATE 2.5 MG TABLET (FP) PO SCH (11:50)
--- NOTE | 2017-02-17 12:36 | PN ---
Progress Note (short form) - Note Progress Note: S/P IR guided retroperitoneal lymph node biopsy S/P port a cath placement No pain Vital Signs Period Temp Pulse Resp BP Sys/Lugo Pulse Ox Last 24 Hr 97.9 F-98.5 F 67-68 15-20 115-147/59-85 96-100 Left groin- wound partially opened medially, + some murky discharge, + skin excoriation Dressing placed CBC, BMP 02/17/17 06:00 02/13/17 08:00 IV antibiotics Will follow May require incision and drainage if has persistent drainage Problem List - Problems (1) Retroperitoneal mass Code(s): R19.00 - INTRA-ABD AND PELVIC SWELLING, MASS AND LUMP, UNSP SITE
[2017-02-17] MEDS ORDERED: CEFAZOLIN 1 GM PUSH 1 GM/10 ML DISP.SYRIN IVPUSH SCH (13:00)
--- NOTE | 2017-02-17 13:40 | PN ---
Progress Note (short form) - Note Progress Note: Patient seen and examined. s/p port today chart reviewed. seen by surgery. O/E: GENERAL: NAD HEENT: NCAT Lungs: CTA b/l Abdomen: Obese RP site Ok NEuro: AAOX3. Last Vital Signs Temp Pulse Resp BP Pulse Ox 98.4 F 67 18 153/87 100 02/13/17 09:26 02/13/17 10:05 02/13/17 10:05 02/13/17 10:05 02/13/17 10:05 CBC, BMP 02/13/17 08:00 02/13/17 08:00 Current Medications Generic Name Dose Route Start Last Admin Trade Name Freq PRN Reason Stop Dose Admin Acetaminophen 650 mg 02/11/17 14:52 Tylenol - PO Q6H PRN FEVER OR PAIN Amlodipine Besylate 2.5 mg 02/12/17 10:00 02/12/17 10:15 Norvasc - PO 2.5 mg DAILY [facility] Administration Docusate Sodium 300 mg 02/11/17 22:00 02/12/17 21:21 Colace - PO 300 mg HS [facility] Administration Heparin Sodium (Porcine) 5,000 unit 02/12/17 09:34 Heparin - IVPUSH PRN PRN Heparin Sodium (Porcine) 1,000 unit 02/12/17 09:34 02/12/17 20:36 Heparin - IVPUSH 1,000 unit PRN PRN Administration IV Flush 10 ml 02/12/17 13:42 Gayle-Cath Flush IVPUSH PRN PRN Protocol Heparin Sodium/Dextrose 25,000 units in 500 mls @ 20 mls/hr 02/12/17 09:30 20:40 Heparin Infusion - IVPB 1,100 unit/hr TITR DIANE 22 mls/hr Protocol Administration 1,000 UNIT/HR Levetiracetam 500 mg 02/11/17 15:00 02/12/17 21:22 Keppra - PO 500 mg BID [facility] Administration Nortriptyline HCl 10 mg 02/11/17 22:00 02/12/17 21:22 Pamelor - PO 10 mg HS [facility] Administration Oxycodone HCl 5 mg 02/11/17 14:52 Roxicodone - PO Q6H PRN PAIN Solifenacin 10 mg 02/12/17 10:00 02/12/17 14:28 Vesicare - PO 10 mg DAILY [facility] Administration lymphadenopathy: suspicion for Concurrent low grade/High grade Lymphoma s/p RP node biopsy, await pathology s/p Port groin wound surgery eval called by concern for infection on IV abx d/w , called ID consult [id number] appreciate Cardiology c/s for mechanical valve on coumadin due to the procedures on heparin now. Will hold coumadin as there might be a plan for InD of the wound. d/w patient. Problem List - Problems (1) Lymphoma Code(s): C85.90 - NON-HODGKIN LYMPHOMA, UNSPECIFIED, UNSPECIFIED SITE Qualifiers: Lymphoma type: non-Hodgkin Non-Hodgkin lymphoma type: follicular Follicular lymphoma grade: grade II Lymphoma site: lower extremity Qualified Code(s): C82.15 - Follicular lymphoma grade II, lymph nodes of inguinal region and lower limb (2) Retroperitoneal mass Code(s): R19.00 - INTRA-ABD AND PELVIC SWELLING, MASS AND LUMP, UNSP SITE (3) History of prosthetic aortic valve Code(s): Z95.2 - PRESENCE OF PROSTHETIC HEART VALVE (4) Pacemaker Code(s): Z95.0 - PRESENCE OF CARDIAC PACEMAKER (5) Old cerebrovascular accident (CVA) without late effect Code(s): Z86.73 - PRSNL HX OF TIA (TIA), AND CEREB INFRC W/O RESID DEFICITS
--- NOTE | 2017-02-17 14:30 | PN ---
Progress Note, Physician Chief Complaint: PATIENT S/P TUNNEL CATH FOR IV CHEMO INFUSIONS PATIENT HAD A LEFT GROIN BIOPSY 3 WEEKS AGO AND HERE RETROPERITONEAL BIOPSY AND CATHETER PLACEMENT. LEFT GROIN BIOPSY SITE STILL OOZING WITH PURULENT DISCHARGE NO FEVERS NO CHILLS - Current Medication List Current Medications: Active Medications Acetaminophen (Tylenol -) 650 mg PO Q6H PRN PRN Reason: FEVER OR PAIN Amlodipine Besylate (Norvasc -) 2.5 mg PO DAILY [facility] Last Admin: 02/17/17 11:50 Dose: 2.5 mg Docusate Sodium (Colace -) 300 mg PO HS [facility] Last Admin: 02/16/17 21:48 Dose: 300 mg Heparin Sodium (Porcine) (Heparin -) 5,000 unit IVPUSH PRN PRN Last Admin: 02/16/17 21:27 Dose: 5,000 unit Heparin Sodium (Porcine) (Heparin -) 1,000 unit IVPUSH PRN PRN Last Admin: 02/12/17 20:36 Dose: 1,000 unit IV Flush (Gayle-Cath Flush) 10 ml IVPUSH PRN PRN PRN Reason: Protocol Heparin Sodium/Dextrose (Heparin Infusion -) 25,000 units in 500 mls @ 20 mls/ hr IVPB TITR DIANE; 1,000 UNIT/HR PRN Reason: Protocol Last Admin: 02/16/17 21:27 Dose: 1,500 unit/hr, 30 mls/hr Cefazolin Sodium (Ancef -) 1 gm in 10 mls @ 120 mls/hr IVPUSH Q8H-IV [facility] Last Admin: 02/17/17 13:31 Dose: 120 mls/hr Levetiracetam (Keppra -) 500 mg PO BID [facility] Last Admin: 02/17/17 11:50 Dose: 500 mg Nortriptyline HCl (Pamelor -) 10 mg PO HS [facility] Last Admin: 02/16/17 21:49 Dose: 10 mg Oxycodone HCl (Roxicodone -) 5 mg PO Q6H PRN PRN Reason: PAIN Solifenacin (Vesicare -) 10 mg PO DAILY [facility] Last Admin: 02/17/17 11:50 Dose: 10 mg Warfarin Sodium (Coumadin -) 3 mg PO DAILY@1800 [facility] Last Admin: 02/16/17 18:24 Dose: 3 mg - Objective Vital Signs: Vital Signs Temperature 98.0 F 02/17/17 12:01 Pulse Rate 68 02/17/17 12:01 Respiratory Rate 20 02/17/17 12:01 Blood Pressure 131/83 02/17/17 12:01 O2 Sat by Pulse Oximetry (%) 97 02/17/17 12:01 Constitutional: Yes: Mild Distress Eyes: Yes: WNL HENT: Yes: WNL Neck: Yes: WNL Cardiovascular: Yes: Pulse Irregular, Murmur Respiratory: Yes: WNL Gastrointestinal: Yes: WNL Genitourinary: Yes: WNL Musculoskeletal: Yes: WNL Extremities: Yes: WNL Edema: Yes Peripheral Pulses WNL: Yes Integumentary: Yes: Skin Tear, Venous Stasis Changes Wound/Incision: Yes: Dressing Dry and Intact Neurological: Yes: Pre-Existing Deficit ...Motor Strength: LLE, RLE Psychiatric: Yes: WNL Labs: CBC, BMP 02/17/17 06:00 02/13/17 08:00 INR, PTT INR 1.14 (0.82-1.09) 02/16/17 14:45 Problem List - Problems (1) Mass Code(s): R22.9 - LOCALIZED SWELLING, MASS AND LUMP, UNSPECIFIED (2) Retroperitoneal mass Code(s): R19.00 - INTRA-ABD AND PELVIC SWELLING, MASS AND LUMP, UNSP SITE (3) HTN (hypertension) Code(s): I10 - ESSENTIAL (PRIMARY) HYPERTENSION Qualifiers: Hypertension type: essential hypertension Qualified Code(s): I10 - Essential (primary) hypertension (4) History of prosthetic aortic valve Code(s): Z95.2 - PRESENCE OF PROSTHETIC HEART VALVE (5) Lymphoma Code(s): C85.90 - NON-HODGKIN LYMPHOMA, UNSPECIFIED, UNSPECIFIED SITE Qualifiers: Lymphoma type: non-Hodgkin Non-Hodgkin lymphoma type: follicular Follicular lymphoma grade: grade II Lymphoma site: lower extremity Qualified Code(s): C82.15 - Follicular lymphoma grade II, lymph nodes of inguinal region and lower limb (6) Old cerebrovascular accident (CVA) without late effect Code(s): Z86.73 - PRSNL HX OF TIA (TIA), AND CEREB INFRC W/O RESID DEFICITS Assessment/Plan SURGERY EVAL FOR LEFT GROIN BIOPSY SITE DR LOPEZ PORT PLACEMENT TODAY WOUND CARE AND CULTURES IV ABX, ID CONSULT BRIDGE TO COUMADIN TOMORROW IIV HEPARIN FOR NOW
--- NOTE | 2017-02-17 16:34 | PN ---
Progress Note (short form) - Note Progress Note: ID consult dictated imp/reccd 66 year old man recent diagnosis of lymphoma, now admitted for port and retroperitoneal biopsy with fluctuant groin wound that was drained by surgery today-prior site of lymph node biopsy culture MRSA positive- was treated with vanco/bactrim before PMH notable for prosthetic AVR and PPM no fevers or chills infected groin wound history mrsa lymphoma blood cultures, wound culture vancomycin mrsa contact isolation Problem List - Problems (1) Wound of left groin Code(s): S31.109A - UNSP OPN WND ABD WALL, UNSP Q W/O PENET PERIT CAV, INIT (2) MRSA (methicillin resistant staph aureus) culture positive Code(s): Z22.322 - CARRIER OR SUSPECTED CARRIER OF METHICILLIN RESIS STAPH (3) Lymphoma Code(s): C85.90 - NON-HODGKIN LYMPHOMA, UNSPECIFIED, UNSPECIFIED SITE Qualifiers: Lymphoma type: non-Hodgkin Non-Hodgkin lymphoma type: follicular Follicular lymphoma grade: grade II Lymphoma site: lower extremity Qualified Code(s): C82.15 - Follicular lymphoma grade II, lymph nodes of inguinal region and lower limb (4) History of prosthetic aortic valve Code(s): Z95.2 - PRESENCE OF PROSTHETIC HEART VALVE (5) Pacemaker Code(s): Z95.0 - PRESENCE OF CARDIAC PACEMAKER
[2017-02-17] MEDS ORDERED: VANCOMYCIN 1,500 MG in DEXTROSE 5%-WATER - 500 ML IVPB SCH (17:00)
[2017-02-17] MEDS: VANCOMYCIN 1,500 MG in DEXTROSE 5%-WATER - 500 ML IVPB SCH (18:17)
[2017-02-17] MEDS: HEPARIN INFUSION - 25,000 UNITS/500 ML INFUS.BAG IVPB SCH (18:18)
--- NOTE | 2017-02-17 20:17 | CONS ---
INFECTIOUS DISEASE CONSULTATION DATE OF CONSULTATION: DATE OF DICTATION: 02/17/2017 HISTORY OF PRESENT ILLNESS: This is a 66-year-old man recently in the hospital in December for a lymph node biopsy. At that time, the broth culture grew MRSA, and he was treated with vancomycin and discharged on Bactrim. The lymph node biopsy was notable for lymphoma. He was discharged to follow up with Oncology which he did. He was readmitted on the for placement of port and retroperitoneal biopsy. Of note, he has a history of a prosthetic aortic valve, and he required bridging with heparin for his procedures. I am asked to see him because he developed swelling at the left groin site, and the surgeon saw him today and partially opened the wound and he had some cloudy drainage from that site. Of note, the patient wears Depends undergarments and a chronic irritation to that site. I am asked to see him for IV antibiotic recommendations. He denies any fevers and chills. He otherwise feels well. PAST MEDICAL HISTORY: Notable for the recent lymphoma diagnosis. He just had a port placed. 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 He also had an aortic arch graft placed. He has a permanent pacemaker, prior CVA, hypertension, asbestosis, and hyperlipidemia. ALLERGIES: He has no known drug allergies. FAMILY HISTORY: Noncontributory. SOCIAL HISTORY: He is retired. He lives with his who has MS. No history of any cigarette or substance use. MEDICATIONS AN OUTPATIENT: Include warfarin, oxycodone, VESIcare, nortriptyline, Keppra, Colace, Lipitor, aspirin, and Norvasc. REVIEW OF SYSTEMS: He feels well and has no complaints. PHYSICAL EXAMINATION: Vital Signs: Temperature is 98.3, pulse of 67. He has had no fever since admission. Blood pressure is 148/64, respiratory rate is 20. HEENT: He is normocephalic. His eyes are anicteric. Neck: Supple. He has a new right port; site of which, there is no erythema. Heart: Regular rate and rhythm. Lungs: Clear to auscultation. Chest: His pacemaker site is without any erythema or tenderness. Abdomen: Soft, nontender. Left Groin: He has murky drainage from the opened incision. He has some surrounding excoriation at the left groin. Skin: He otherwise has no other rashes. His retroperitoneal biopsy site is also without any erythema. Extremities: Without edema. DIAGNOSTIC DATA: White count is 6.6, hemoglobin 12.3, platelets are 151. BUN is 19 and creatinine 0.9. In summary, this is a 66-year-old man with lymphoma status post port placement and retroperitoneal biopsy with an infected groin wound, history of methicillin- resistant Staphylococcus aureus at that site. Would culture was obtained and sent. Would obtain blood cultures, treat him with vancomycin, with MRSA contact isolation. Case was discussed with the oncologist. Further recommendations to follow.add cefepilme for empiric GN coverage Tacho ARCHER/[id number] MTDD
[2017-02-17] MEDS ORDERED: WARFARIN NA 7.5 MG TABLET (FP) PO ONE (20:46)
--- NOTE | 2017-02-17 21:31 | PN ---
Progress Note, Physician Chief Complaint: Not in distress Infected groin wound History of Present Illness: Patient was seen and examined. Awake and alert. Chart was reviewed Denies chest pain, SOB or palpitations Post port insertion - Current Medication List Current Medications: Active Medications Acetaminophen (Tylenol -) 650 mg PO Q6H PRN PRN Reason: FEVER OR PAIN Amlodipine Besylate (Norvasc -) 2.5 mg PO DAILY [facility] Last Admin: 02/17/17 11:50 Dose: 2.5 mg Docusate Sodium (Colace -) 300 mg PO HS [facility] Last Admin: 02/16/17 21:48 Dose: 300 mg Heparin Sodium (Porcine) (Heparin -) 5,000 unit IVPUSH PRN PRN Last Admin: 02/16/17 21:27 Dose: 5,000 unit Heparin Sodium (Porcine) (Heparin -) 1,000 unit IVPUSH PRN PRN Last Admin: 02/12/17 20:36 Dose: 1,000 unit IV Flush (Gayle-Cath Flush) 10 ml IVPUSH PRN PRN PRN Reason: Protocol Vancomycin HCl 1,500 mg/ (Dextrose) 500 mls @ 250 mls/hr IVPB Q12H [facility]ANE PRN Reason: Protocol Last Admin: 02/17/17 18:17 Dose: 250 mls/hr Heparin Sodium/Dextrose (Heparin Infusion -) 25,000 units in 500 mls @ 20 mls/ hr IVPB TITR DIANE; 1,000 UNIT/HR PRN Reason: Protocol Last Admin: 02/17/17 18:18 Dose: 1,500 unit/hr, 30 mls/hr Levetiracetam (Keppra -) 500 mg PO BID [facility] Last Admin: 02/17/17 11:50 Dose: 500 mg Nortriptyline HCl (Pamelor -) 10 mg PO HS [facility] Last Admin: 02/16/17 21:49 Dose: 10 mg Oxycodone HCl (Roxicodone -) 5 mg PO Q6H PRN PRN Reason: PAIN Solifenacin (Vesicare -) 10 mg PO DAILY [facility] Last Admin: 02/17/17 11:50 Dose: 10 mg Warfarin Sodium (Coumadin -) 3 mg PO DAILY@1800 [facility] Last Admin: 02/16/17 18:24 Dose: 3 mg - Objective Vital Signs: Vital Signs Temperature 98.8 F 02/17/17 18:00 Pulse Rate 67 02/17/17 18:00 Respiratory Rate 18 02/17/17 18:00 Blood Pressure 118/78 02/17/17 18:00 O2 Sat by Pulse Oximetry (%) 96 02/17/17 21:00 Eyes: Yes: PERRL HENT: Yes: Atraumatic Neck: Yes: Supple Cardiovascular: Yes: Regular Rate and Rhythm, Murmur (2/6 SM), S1, S2, Other ( Mechanical click) Respiratory: Yes: CTA Bilaterally Gastrointestinal: Yes: Normal Bowel Sounds, Soft. No: Tenderness Edema: No Labs: 02/17/17 06:00 INR 1.14 (0.82-1.09) 02/16/17 14:45 Problem List - Problems (1) Retroperitoneal mass Code(s): R19.00 - INTRA-ABD AND PELVIC SWELLING, MASS AND LUMP, UNSP SITE (2) HTN (hypertension) Code(s): I10 - ESSENTIAL (PRIMARY) HYPERTENSION Qualifiers: Hypertension type: essential hypertension Qualified Code(s): I10 - Essential (primary) hypertension (3) History of prosthetic aortic valve Code(s): Z95.2 - PRESENCE OF PROSTHETIC HEART VALVE (4) Lymphoma Code(s): C85.90 - NON-HODGKIN LYMPHOMA, UNSPECIFIED, UNSPECIFIED SITE Qualifiers: Lymphoma type: non-Hodgkin Non-Hodgkin lymphoma type: follicular Follicular lymphoma grade: grade II Lymphoma site: lower extremity Qualified Code(s): C82.15 - Follicular lymphoma grade II, lymph nodes of inguinal region and lower limb (5) Old cerebrovascular accident (CVA) without late effect Code(s): Z86.73 - PRSNL HX OF TIA (TIA), AND CEREB INFRC W/O RESID DEFICITS (6) Pacemaker Code(s): Z95.0 - PRESENCE OF CARDIAC PACEMAKER (7) Thoracic aortic aneurysm Code(s): I71.2 - THORACIC AORTIC ANEURYSM, WITHOUT RUPTURE Qualifiers: Presence of rupture: without rupture Qualified Code(s): I71.2 - Thoracic aortic aneurysm, without rupture (8) Atrial fibrillation Code(s): I48.91 - UNSPECIFIED ATRIAL FIBRILLATION Qualifiers: Atrial fibrillation type: persistent Qualified Code(s): I48.1 - Persistent atrial fibrillation Assessment/Plan 1. Systolic left ventricular dysfunction with chronic class 0-I [employer] classification left ventricular failure, compensated/euvolemic. 2. Post re-operative AVR (mechanical aortic valve prosthesis), with evidence of moderate to severe eccentric aortic valve regurgitation 3. Ascending thoracic aortic aneurysm post-surgical repair 4. AV block post permanent pacemaker implantation [employer] device, device at [facility] for elective replacement as outpatient 5. Persistent atrial fibrillation [id number] score of 5 on A/C therapy with Coumadin/Heparin 6. History of cerebro-vascular disease 7. HTN 8. Abdominal mass post biopsy, pathology pending 9. History of lymphoma 10. Infected groin wound PLAN: 1. Continue Norvasc 2. Resume Coumadin and continue Heparin drip until INR is therapeutic according to guideline for mechanical aortic valve 3. Patient has an appointment with Dr. Alex Beth of [facility] in regards to generator(battery) change on his pacemaker as outpatient (Feb 23) 4. Further management as per Oncology service 5. Antibiotic coverage Further plans are to follow Chiki Hutchison MD
[2017-02-17] MEDS: NORTRIPTYLINE HCL 10 MG CAPSULE PO SCH (22:11)
[2017-02-17] MEDS: DOCUSATE SODIUM 100 MG CAPSULE (FP) PO SCH (22:12)
[2017-02-18] MEDS ORDERED: CEFEPIME HCL 1 GM VIAL (RESTRICTED TO ID) IVPB SCH (05:30)
[2017-02-18] MEDS: CEFEPIME 1 GM in DEXTROSE 5%-WATER - 100 ML IVPB SCH ×2 (05:40→17:31)
[2017-02-18] MEDS: VANCOMYCIN 1,500 MG in DEXTROSE 5%-WATER - 500 ML IVPB SCH ×3 (06:11→18:42)
[2017-02-18 07:31] LABS: HEMATOCRIT 36.5 % (35.4-49); HEMOGLOBIN 12.3 GM/dL (11.7-16.9); MCH 32.5 pg (25.7-33.7); MCHC 33.6 g/dl (32.0-35.9); MEAN CELL VOLUME 96.6 fl (80-96); MEAN PLT VOLUME 8.8 fl (7.5-11.1); PLATELET COUNT 136 K/MM3 (134-434); RBC 3.78 M/mm3 (4.00-5.60); RDW 13.5 % (11.9-15.9); WHITE BLOOD COUNT 6.1 K/mm3 (4.0-10.0)
[2017-02-18 07:34] LABS: INR 1.19 (0.82-1.09); PROTHROMBIN TIME (PATIENT) 13.4 SEC (9.98-11.88)
[2017-02-18] MEDS: HEPARIN INFUSION - 25,000 UNITS/500 ML INFUS.BAG IVPB SCH ×2 (08:29→17:31)
[2017-02-18] MEDS ORDERED: PT OWN MED DRAWER 7, Y5N ONE ×2 (09:48→17:17)
[2017-02-18] MEDS: levETIRAcetam 500 MG TABLET (FP) PO SCH ×2 (10:14→22:46)
[2017-02-18] MEDS: SOLIFENACIN SUCCINATE 5 MG TAB (FP) PO SCH (10:19)
[2017-02-18] MEDS: amLODIPine BESYLATE 2.5 MG TABLET (FP) PO SCH (10:19)
--- NOTE | 2017-02-18 10:45 | PN ---
Progress Note, Physician Chief Complaint: awake alert nad - Current Medication List Current Medications: Active Medications Acetaminophen (Tylenol -) 650 mg PO Q6H PRN PRN Reason: FEVER OR PAIN Amlodipine Besylate (Norvasc -) 2.5 mg PO DAILY [facility] Last Admin: 02/18/17 10:19 Dose: 2.5 mg Docusate Sodium (Colace -) 300 mg PO HS [facility] Last Admin: 02/17/17 22:12 Dose: 300 mg Heparin Sodium (Porcine) (Heparin -) 5,000 unit IVPUSH PRN PRN Last Admin: 02/16/17 21:27 Dose: 5,000 unit Heparin Sodium (Porcine) (Heparin -) 1,000 unit IVPUSH PRN PRN Last Admin: 02/12/17 20:36 Dose: 1,000 unit IV Flush (Gayle-Cath Flush) 10 ml IVPUSH PRN PRN PRN Reason: Protocol Vancomycin HCl 1,500 mg/ (Dextrose) 500 mls @ 250 mls/hr IVPB Q12H [facility] PRN Reason: Protocol Last Admin: 02/18/17 06:11 Dose: 250 mls/hr Heparin Sodium/Dextrose (Heparin Infusion -) 25,000 units in 500 mls @ 20 mls/ hr IVPB TITR [facility]; 1,000 UNIT/HR PRN Reason: Protocol Last Titration: 02/18/17 10:00 Dose: 1,500 unit/hr, 30 mls/hr Cefepime HCl 1 gm/ Dextrose 100 mls @ 200 mls/hr IVPB Q8H-IV [facility] Last Admin: 02/18/17 05:40 Dose: 200 mls/hr Levetiracetam (Keppra -) 500 mg PO BID [facility] Last Admin: 02/18/17 10:14 Dose: 500 mg Nortriptyline HCl (Pamelor -) 10 mg PO HS [facility] Last Admin: 02/17/17 22:11 Dose: 10 mg Oxycodone HCl (Roxicodone -) 5 mg PO Q6H PRN PRN Reason: PAIN Solifenacin (Vesicare -) 10 mg PO DAILY [facility] Last Admin: 02/18/17 10:19 Dose: 10 mg Warfarin Sodium (Coumadin -) 10 mg PO DAILY@1800 [facility] - Objective Vital Signs: Vital Signs Temperature 97.8 F 02/18/17 06:00 Pulse Rate 67 02/18/17 06:00 Respiratory Rate 20 02/18/17 06:00 Blood Pressure 134/78 02/18/17 06:00 O2 Sat by Pulse Oximetry (%) 96 02/17/17 21:00 Constitutional: Yes: No Distress Eyes: Yes: WNL HENT: Yes: WNL Neck: Yes: WNL Cardiovascular: Yes: Murmur Respiratory: Yes: WNL Gastrointestinal: Yes: WNL Genitourinary: Yes: WNL Musculoskeletal: Yes: Muscle Weakness Extremities: Yes: WNL Edema: Yes Edema: LLE: Trace, RLE: Trace Peripheral Pulses WNL: Yes Integumentary: Yes: WNL Wound/Incision: Yes: Clean/Dry (GROIN), Dressing Dry and Intact Neurological: Yes: Pre-Existing Deficit ...Motor Strength: LLE, RLE Labs: CBC, BMP 02/18/17 06:00 02/13/17 08:00 INR, PTT INR 1.19 (0.82-1.09) H 02/18/17 06:00 Problem List - Problems (1) Mass Code(s): R22.9 - LOCALIZED SWELLING, MASS AND LUMP, UNSPECIFIED (2) Retroperitoneal mass Code(s): R19.00 - INTRA-ABD AND PELVIC SWELLING, MASS AND LUMP, UNSP SITE (3) HTN (hypertension) Code(s): I10 - ESSENTIAL (PRIMARY) HYPERTENSION Qualifiers: Hypertension type: essential hypertension Qualified Code(s): I10 - Essential (primary) hypertension (4) History of prosthetic aortic valve Code(s): Z95.2 - PRESENCE OF PROSTHETIC HEART VALVE (5) Lymphoma Code(s): C85.90 - NON-HODGKIN LYMPHOMA, UNSPECIFIED, UNSPECIFIED SITE Qualifiers: Lymphoma type: non-Hodgkin Non-Hodgkin lymphoma type: follicular Follicular lymphoma grade: grade II Lymphoma site: lower extremity Qualified Code(s): C82.15 - Follicular lymphoma grade II, lymph nodes of inguinal region and lower limb (6) Old cerebrovascular accident (CVA) without late effect Code(s): Z86.73 - PRSNL HX OF TIA (TIA), AND CEREB INFRC W/O RESID DEFICITS Assessment/Plan SURGERY EVAL FOR LEFT GROIN BIOPSY SITE DR LOPEZ PORT PLACEMENT COMPLETE WOUND CARE AND CULTURES IV ABX, ID CONSULT APPRECIATED BRIDGE TO COUMADIN TOMORROW DISCHARGE IV HEPARIN FOR NOW STOP TOMORROW DC PLANNING TOMORROW
--- NOTE | 2017-02-18 12:13 | PN ---
Progress Note, Physician History of Present Illness: s/p port implant and RP mass biopsy. On hep gtt->coumadin. - Current Medication List Current Medications: Active Medications Acetaminophen (Tylenol -) 650 mg PO Q6H PRN PRN Reason: FEVER OR PAIN Amlodipine Besylate (Norvasc -) 2.5 mg PO DAILY [facility] Last Admin: 02/18/17 10:19 Dose: 2.5 mg Docusate Sodium (Colace -) 300 mg PO HS [facility] Last Admin: 02/17/17 22:12 Dose: 300 mg Heparin Sodium (Porcine) (Heparin -) 5,000 unit IVPUSH PRN PRN Last Admin: 02/16/17 21:27 Dose: 5,000 unit Heparin Sodium (Porcine) (Heparin -) 1,000 unit IVPUSH PRN PRN Last Admin: 02/12/17 20:36 Dose: 1,000 unit IV Flush (Gayle-Cath Flush) 10 ml IVPUSH PRN PRN PRN Reason: Protocol Vancomycin HCl 1,500 mg/ (Dextrose) 500 mls @ 250 mls/hr IVPB Q12H [facility] PRN Reason: Protocol Last Admin: 02/18/17 06:11 Dose: 250 mls/hr Heparin Sodium/Dextrose (Heparin Infusion -) 25,000 units in 500 mls @ 20 mls/ hr IVPB TITR [facility]; 1,000 UNIT/HR PRN Reason: Protocol Last Titration: 02/18/17 10:00 Dose: 1,500 unit/hr, 30 mls/hr Cefepime HCl 1 gm/ Dextrose 100 mls @ 200 mls/hr IVPB Q8H-IV [facility] Last Admin: 02/18/17 05:40 Dose: 200 mls/hr Levetiracetam (Keppra -) 500 mg PO BID [facility] Last Admin: 02/18/17 10:14 Dose: 500 mg Nortriptyline HCl (Pamelor -) 10 mg PO HS [facility] Last Admin: 02/17/17 22:11 Dose: 10 mg Oxycodone HCl (Roxicodone -) 5 mg PO Q6H PRN PRN Reason: PAIN Solifenacin (Vesicare -) 10 mg PO DAILY [facility] Last Admin: 02/18/17 10:19 Dose: 10 mg Warfarin Sodium (Coumadin -) 10 mg PO DAILY@1800 [facility] Objective Vital Signs: Vital Signs Temperature 97.8 F 02/18/17 06:00 Pulse Rate 67 02/18/17 06:00 Respiratory Rate 20 02/18/17 06:00 Blood Pressure 134/78 02/18/17 06:00 O2 Sat by Pulse Oximetry (%) 96 02/17/17 21:00 Constitutional: Yes: No Distress, Calm Neck: Yes: Supple Cardiovascular: Yes: Pulse Irregular, Other ([place] mechanical valve sounds) Respiratory: Yes: Regular, CTA Bilaterally Gastrointestinal: Yes: Normal Bowel Sounds, Soft Edema: No Labs: CBC, BMP 02/18/17 06:00 02/13/17 08:00 INR, PTT INR 1.19 (0.82-1.09) H 02/18/17 06:00 Problem List - Problems (1) Elective replacement indicated for cardiac pacemaker battery at end of lifespan Code(s): Z45.010 - ENCNTR FOR CHECKING AND TEST OF CARD PACEMAKER PULSE GNRTR (2) Systolic dysfunction without heart failure Code(s): I51.9 - HEART DISEASE, UNSPECIFIED (3) Atrial fibrillation Code(s): I48.91 - UNSPECIFIED ATRIAL FIBRILLATION Qualifiers: Atrial fibrillation type: persistent Qualified Code(s): I48.1 - Persistent atrial fibrillation (4) Retroperitoneal mass Code(s): R19.00 - INTRA-ABD AND PELVIC SWELLING, MASS AND LUMP, UNSP SITE (5) Thoracic aortic aneurysm Code(s): I71.2 - THORACIC AORTIC ANEURYSM, WITHOUT RUPTURE Qualifiers: Presence of rupture: without rupture Qualified Code(s): I71.2 - Thoracic aortic aneurysm, without rupture (6) Wound of left groin Code(s): S31.109A - UNSP OPN WND ABD WALL, UNSP Q W/O PENET PERIT CAV, INIT Qualifiers: Encounter type: subsequent encounter Qualified Code(s): S31.109D - Unspecified open wound of abdominal wall, unspecified quadrant without penetration into peritoneal cavity, subsequent encounter (7) HTN (hypertension) Code(s): I10 - ESSENTIAL (PRIMARY) HYPERTENSION Qualifiers: Hypertension type: essential hypertension Qualified Code(s): I10 - Essential (primary) hypertension (8) History of prosthetic aortic valve Code(s): Z95.2 - PRESENCE OF PROSTHETIC HEART VALVE (9) Lymphoma Code(s): C85.90 - NON-HODGKIN LYMPHOMA, UNSPECIFIED, UNSPECIFIED SITE Qualifiers: Lymphoma type: non-Hodgkin Non-Hodgkin lymphoma type: follicular Follicular lymphoma grade: grade II Lymphoma site: lower extremity Qualified Code(s): C82.15 - Follicular lymphoma grade II, lymph nodes of inguinal region and lower limb (10) Old cerebrovascular accident (CVA) without late effect Code(s): Z86.73 - PRSNL HX OF TIA (TIA), AND CEREB INFRC W/O RESID DEFICITS (11) Pacemaker Code(s): Z95.0 - PRESENCE OF CARDIAC PACEMAKER Assessment/Plan [facility] 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 1. Systolic left ventricular dysfunction with chronic class 0-I [place] [employer] classification left ventricular failure, compensated/euvolemic. 2. Post re-operative AVR (mechanical aortic valve prosthesis), with evidence of moderate to severe eccentric aortic valve regurgitation 3. Ascending thoracic aortic aneurysm post-surgical repair 4. AV block post permanent pacemaker implantation [facility] device, device at [facility] for elective replacement as outpatient 5. Persistent atrial fibrillation [id number] score of 5 on A/C therapy with Coumadin/Heparin and subtherapeutic INR 6. History of cerebrovascular disease 7. HTN 8. Abdominal mass post biopsy, pathology pending 9. History of lymphoma 10. Fluctuant groin wound s/p I&D PLAN: 1. Continue Norvasc 2.5 qd, 2. Continue Heparin drip until INR 2.5-3.5 3. Patient has an appointment with Dr. Alex Beth of [facility] in regards to generator(battery) change on his pacemaker as outpatient (Feb 23) 4. Further management as per Oncology service, f/u pathology 5. Antibiotic coverage per ID
--- NOTE | 2017-02-18 13:07 | PN ---
Progress Note (short form) - Note Progress Note: Patient seen and examined. seen by ID/ Cultures sent On IV abx Pt in chair. denies any complaints O/E: GENERAL: NAD HEENT: NCAT, port site looks OK. Lungs: CTA b/l Abdomen: Obese RP site Ok, groin wound in dressing NEuro: AAOX3. Last Vital Signs Temp Pulse Resp BP Pulse Ox 97.8 F 67 20 134/78 96 02/18/17 06:00 02/18/17 06:00 02/18/17 06:00 02/18/17 06:00 02/17/17 21:00 CBC, BMP 02/18/17 06:00 02/13/17 08:00 Current Medications Generic Name Dose Route Start Last Admin Trade Name Freq PRN Reason Stop Dose Admin Acetaminophen 650 mg 02/11/17 14:52 Tylenol - PO Q6H PRN FEVER OR PAIN Amlodipine Besylate 2.5 mg 02/12/17 10:00 02/18/17 10:19 Norvasc - PO 2.5 mg DAILY [facility] Administration Docusate Sodium 300 mg 02/11/17 22:00 02/17/17 22:12 Colace - PO 300 mg HS [facility] Administration Heparin Sodium (Porcine) 5,000 unit 02/12/17 09:34 02/16/17 21:27 Heparin - IVPUSH 5,000 unit PRN PRN Administration Heparin Sodium (Porcine) 1,000 unit 02/12/17 09:34 02/12/17 20:36 Heparin - IVPUSH 1,000 unit PRN PRN Administration IV Flush 10 ml 02/12/17 13:42 Gayle-Cath Flush IVPUSH PRN PRN Protocol Vancomycin HCl 1,500 mg/ 500 mls @ 250 mls/hr 02/17/17 17:00 02/18/17 06:11 Dextrose IVPB 250 mls/hr Q12H [facility] Administration Protocol Heparin Sodium/Dextrose 25,000 units in 500 mls @ 20 mls/hr 02/17/17 17:00 10:00 Heparin Infusion - IVPB 1,500 unit/hr TITR [facility] 30 mls/hr Protocol Titration 1,000 UNIT/HR Cefepime HCl 1 gm/ Dextrose 100 mls @ 200 mls/hr 02/18/17 06:00 02/18/17 05: 40 IVPB 200 mls/hr Q8H-IV [facility] Administration Levetiracetam 500 mg 02/11/17 15:00 02/18/17 10:14 Keppra - PO 500 mg BID [facility] Administration Nortriptyline HCl 10 mg 02/11/17 22:00 02/17/17 22:11 Pamelor - PO 10 mg HS [facility] Administration Oxycodone HCl 5 mg 02/11/17 14:52 Roxicodone - PO Q6H PRN PAIN Solifenacin 10 mg 02/12/17 10:00 02/18/17 10:19 Vesicare - PO 10 mg DAILY [facility] Administration Warfarin Sodium 10 mg 02/18/17 18:00 Coumadin - PO DAILY@1800 [facility] lymphadenopathy: left a message for pathology dept today groin wound surgery eval called by concern for infection on IV abx f.u ID recs further [id number] appreciate Cardiology c/s for mechanical valve on coumadin heparin to coumadin bridge d/w patient. d/w over the phone Problem List - Problems (1) Lymphoma Code(s): C85.90 - NON-HODGKIN LYMPHOMA, UNSPECIFIED, UNSPECIFIED SITE Qualifiers: Lymphoma type: non-Hodgkin Non-Hodgkin lymphoma type: follicular Follicular lymphoma grade: grade II Lymphoma site: lower extremity Qualified Code(s): C82.15 - Follicular lymphoma grade II, lymph nodes of inguinal region and lower limb (2) Retroperitoneal mass Code(s): R19.00 - INTRA-ABD AND PELVIC SWELLING, MASS AND LUMP, UNSP SITE (3) History of prosthetic aortic valve Code(s): Z95.2 - PRESENCE OF PROSTHETIC HEART VALVE (4) Pacemaker Code(s): Z95.0 - PRESENCE OF CARDIAC PACEMAKER (5) Old cerebrovascular accident (CVA) without late effect Code(s): Z86.73 - PRSNL HX OF TIA (TIA), AND CEREB INFRC W/O RESID DEFICITS
--- NOTE | 2017-02-18 15:05 | PN ---
Progress Note (short form) - Note Progress Note: no complaints Vital Signs Period Temp Pulse Resp BP Sys/Lugo Pulse Ox Last 24 Hr 97.8 F-98.8 F 67-68 18-20 112-148/64-78 96-96 cor-rrr lungs clear abd soft,nt ulcer is clean no drainage CBC, BMP 02/18/17 06:00 02/13/17 08:00 cultures pending a/p infected groin wound history mrsa lymphoma prosthetic AVR PPM blood cultures, wound culture vancomycin/cefepime vanco trough before next dose mrsa contact isolation Problem List - Problems (1) Wound of left groin Code(s): S31.109A - UNSP OPN WND ABD WALL, UNSP Q W/O PENET PERIT CAV, INIT Qualifiers: Encounter type: subsequent encounter Qualified Code(s): S31.109D - Unspecified open wound of abdominal wall, unspecified quadrant without penetration into peritoneal cavity, subsequent encounter (2) MRSA (methicillin resistant staph aureus) culture positive Code(s): Z22.322 - CARRIER OR SUSPECTED CARRIER OF METHICILLIN RESIS STAPH (3) Lymphoma Code(s): C85.90 - NON-HODGKIN LYMPHOMA, UNSPECIFIED, UNSPECIFIED SITE Qualifiers: Lymphoma type: non-Hodgkin Non-Hodgkin lymphoma type: follicular Follicular lymphoma grade: grade II Lymphoma site: lower extremity Qualified Code(s): C82.15 - Follicular lymphoma grade II, lymph nodes of inguinal region and lower limb (4) History of prosthetic aortic valve Code(s): Z95.2 - PRESENCE OF PROSTHETIC HEART VALVE (5) Pacemaker Code(s): Z95.0 - PRESENCE OF CARDIAC PACEMAKER
[2017-02-18] MEDS: WARFARIN NA 10 MG TABLET (FP) PO SCH (17:31)
[2017-02-18] MEDS: VANCOMYCIN 1,250 MG in DEXTROSE 5%-WATER - 250 ML IVPB SCH (19:24)
[2017-02-18] MEDS: DOCUSATE SODIUM 100 MG CAPSULE (FP) PO SCH (22:46)
[2017-02-18] MEDS: NORTRIPTYLINE HCL 10 MG CAPSULE PO SCH (22:47)
[2017-02-19] MEDS: HEPARIN INFUSION - 25,000 UNITS/500 ML INFUS.BAG IVPB SCH ×2 (00:31→17:42)
[2017-02-19] MEDS: CEFEPIME 1 GM in DEXTROSE 5%-WATER - 100 ML IVPB SCH ×2 (01:29→10:04)
[2017-02-19] MEDS: VANCOMYCIN 1,250 MG in DEXTROSE 5%-WATER - 250 ML IVPB SCH ×2 (06:02→18:27)
[2017-02-19 07:50] LABS: ANION GAP 6 (8-16); BLOOD UREA NITROGEN 17 mg/dL (7-18); CHLORIDE 106 mmol/L (98-107); CO2 27 mmol/L (21-32); CREATININE 0.9 mg/dL (0.7-1.3); GLUCOSE,RANDOM 104 mg/dL (74-106); POTASSIUM 4.1 mmol/L (3.5-5.1); SODIUM 139 mmol/L (136-145)
[2017-02-19 08:33] LABS: INR 1.18 (0.82-1.09); PROTHROMBIN TIME (PATIENT) 13.3 SEC (9.98-11.88)
[2017-02-19] MEDS ORDERED: PT OWN MED DRAWER 7, Y5N ONE ×2 (09:34→18:12)
[2017-02-19] MEDS: amLODIPine BESYLATE 2.5 MG TABLET (FP) PO SCH (10:04)
[2017-02-19] MEDS: levETIRAcetam 500 MG TABLET (FP) PO SCH ×2 (10:04→21:12)
[2017-02-19] MEDS: SOLIFENACIN SUCCINATE 5 MG TAB (FP) PO SCH ×2 (10:05→18:50)
--- NOTE | 2017-02-19 10:34 | PN ---
Progress Note, Physician Chief Complaint: AWAEK ALERT NAD - Current Medication List Current Medications: Active Medications Acetaminophen (Tylenol -) 650 mg PO Q6H PRN PRN Reason: FEVER OR PAIN Amlodipine Besylate (Norvasc -) 2.5 mg PO DAILY [facility] Last Admin: 02/19/17 10:04 Dose: 2.5 mg Docusate Sodium (Colace -) 300 mg PO HS [facility] Last Admin: 02/18/17 22:46 Dose: 300 mg IV Flush (Gayle-Cath Flush) 10 ml IVPUSH PRN PRN PRN Reason: Protocol Heparin Sodium/Dextrose (Heparin Infusion -) 25,000 units in 500 mls @ 20 mls/ hr IVPB TITR [facility]; 1,000 UNIT/HR PRN Reason: Protocol Last Admin: 02/19/17 00:31 Dose: 1,500 unit/hr, 30 mls/hr Cefepime HCl 1 gm/ Dextrose 100 mls @ 200 mls/hr IVPB Q8H-IV [facility] Last Admin: 02/19/17 10:04 Dose: 200 mls/hr Vancomycin HCl 1,250 mg/ (Dextrose) 250 mls @ 166.667 mls/hr IVPB BID@0700, 1900 [facility] Last Admin: 02/19/17 06:02 Dose: 166.667 mls/hr Levetiracetam (Keppra -) 500 mg PO BID [facility] Last Admin: 02/19/17 10:04 Dose: 500 mg Nortriptyline HCl (Pamelor -) 10 mg PO HS [facility] Last Admin: 02/18/17 22:47 Dose: 10 mg Oxycodone HCl (Roxicodone -) 5 mg PO Q6H PRN PRN Reason: PAIN Solifenacin (Vesicare -) 10 mg PO DAILY [facility] Last Admin: 02/19/17 10:05 Dose: Not Given Warfarin Sodium (Coumadin -) 10 mg PO DAILY@1800 [facility] Last Admin: 02/18/17 17:31 Dose: 10 mg - Objective Vital Signs: Vital Signs Temperature 98 F 02/19/17 10:06 Pulse Rate 67 02/19/17 10:06 Respiratory Rate 18 02/19/17 10:06 Blood Pressure 127/68 02/19/17 10:06 O2 Sat by Pulse Oximetry (%) 95 02/18/17 21:00 Constitutional: Yes: Mild Distress Eyes: Yes: WNL HENT: Yes: WNL Neck: Yes: WNL Cardiovascular: Yes: Pulse Irregular, Murmur Respiratory: Yes: WNL Genitourinary: Yes: WNL Musculoskeletal: Yes: Muscle Weakness Extremities: Yes: Other Edema: Yes Edema: LLE: Trace, RLE: Trace Peripheral Pulses WNL: Yes Integumentary: Yes: Other Wound/Incision: Yes: Dressing Dry and Intact Neurological: Yes: Pre-Existing Deficit ...Motor Strength: LLE, RLE Psychiatric: Yes: WNL Labs: CBC, BMP 02/18/17 06:00 02/19/17 06:00 INR, PTT INR 1.18 (0.82-1.09) H 02/19/17 06:00 Problem List - Problems (1) Mass Code(s): R22.9 - LOCALIZED SWELLING, MASS AND LUMP, UNSPECIFIED (2) Retroperitoneal mass Code(s): R19.00 - INTRA-ABD AND PELVIC SWELLING, MASS AND LUMP, UNSP SITE (3) HTN (hypertension) Code(s): I10 - ESSENTIAL (PRIMARY) HYPERTENSION Qualifiers: Hypertension type: essential hypertension Qualified Code(s): I10 - Essential (primary) hypertension (4) History of prosthetic aortic valve Code(s): Z95.2 - PRESENCE OF PROSTHETIC HEART VALVE (5) Lymphoma Code(s): C85.90 - NON-HODGKIN LYMPHOMA, UNSPECIFIED, UNSPECIFIED SITE Qualifiers: Lymphoma type: non-Hodgkin Non-Hodgkin lymphoma type: follicular Follicular lymphoma grade: grade II Lymphoma site: lower extremity Qualified Code(s): C82.15 - Follicular lymphoma grade II, lymph nodes of inguinal region and lower limb (6) Old cerebrovascular accident (CVA) without late effect Code(s): Z86.73 - PRSNL HX OF TIA (TIA), AND CEREB INFRC W/O RESID DEFICITS Assessment/Plan INR 1.18 COUMADIN 10MG TONIGHT IV HEPARIN WOUND CARE LEFT GROIN ON IV ABX ID F/U DC PLANNING TOMORROW
--- NOTE | 2017-02-19 11:24 | PN ---
Progress Note, Physician Chief Complaint: Not in distress History of Present Illness: Patient was seen and examined. Awake and alert. Chart was reviewed Denies chest pain, SOB or palpitations INR still subtherapeutic - Current Medication List Current Medications: Active Medications Acetaminophen (Tylenol -) 650 mg PO Q6H PRN PRN Reason: FEVER OR PAIN Amlodipine Besylate (Norvasc -) 2.5 mg PO DAILY [facility] Last Admin: 02/19/17 10:04 Dose: 2.5 mg Docusate Sodium (Colace -) 300 mg PO HS [facility] Last Admin: 02/18/17 22:46 Dose: 300 mg IV Flush (Gayle-Cath Flush) 10 ml IVPUSH PRN PRN PRN Reason: Protocol Heparin Sodium/Dextrose (Heparin Infusion -) 25,000 units in 500 mls @ 20 mls/ hr IVPB TITR [facility]; 1,000 UNIT/HR PRN Reason: Protocol Last Admin: 02/19/17 00:31 Dose: 1,500 unit/hr, 30 mls/hr Cefepime HCl 1 gm/ Dextrose 100 mls @ 200 mls/hr IVPB Q8H-IV [facility] Last Admin: 02/19/17 10:04 Dose: 200 mls/hr Vancomycin HCl 1,250 mg/ (Dextrose) 250 mls @ 166.667 mls/hr IVPB BID@0700, 1900 [facility] Last Admin: 02/19/17 06:02 Dose: 166.667 mls/hr Levetiracetam (Keppra -) 500 mg PO BID [facility] Last Admin: 02/19/17 10:04 Dose: 500 mg Nortriptyline HCl (Pamelor -) 10 mg PO HS [facility] Last Admin: 02/18/17 22:47 Dose: 10 mg Oxycodone HCl (Roxicodone -) 5 mg PO Q6H PRN PRN Reason: PAIN Solifenacin (Vesicare -) 10 mg PO DAILY [facility] Last Admin: 02/19/17 10:05 Dose: Not Given Warfarin Sodium (Coumadin -) 10 mg PO DAILY@1800 [facility] Last Admin: 02/18/17 17:31 Dose: 10 mg - Objective Vital Signs: Vital Signs Temperature 98 F 02/19/17 10:06 Pulse Rate 67 02/19/17 10:06 Respiratory Rate 18 02/19/17 10:06 Blood Pressure 127/68 02/19/17 10:06 O2 Sat by Pulse Oximetry (%) 95 02/18/17 21:00 Eyes: Yes: PERRL HENT: Yes: Atraumatic Neck: Yes: Supple Cardiovascular: Yes: Regular Rate and Rhythm, S1, S2, Other (Mechanical click) Respiratory: Yes: CTA Bilaterally Gastrointestinal: Yes: Normal Bowel Sounds, Soft. No: Tenderness Edema: No Labs: CBC, BMP 02/18/17 06:00 02/19/17 06:00 INR, PTT INR 1.18 (0.82-1.09) H 02/19/17 06:00 Problem List - Problems (1) Retroperitoneal mass Code(s): R19.00 - INTRA-ABD AND PELVIC SWELLING, MASS AND LUMP, UNSP SITE (2) HTN (hypertension) Code(s): I10 - ESSENTIAL (PRIMARY) HYPERTENSION Qualifiers: Hypertension type: essential hypertension Qualified Code(s): I10 - Essential (primary) hypertension (3) History of prosthetic aortic valve Code(s): Z95.2 - PRESENCE OF PROSTHETIC HEART VALVE (4) Lymphoma Code(s): C85.90 - NON-HODGKIN LYMPHOMA, UNSPECIFIED, UNSPECIFIED SITE Qualifiers: Lymphoma type: non-Hodgkin Non-Hodgkin lymphoma type: follicular Follicular lymphoma grade: grade II Lymphoma site: lower extremity Qualified Code(s): C82.15 - Follicular lymphoma grade II, lymph nodes of inguinal region and lower limb (5) Old cerebrovascular accident (CVA) without late effect Code(s): Z86.73 - PRSNL HX OF TIA (TIA), AND CEREB INFRC W/O RESID DEFICITS (6) Pacemaker Code(s): Z95.0 - PRESENCE OF CARDIAC PACEMAKER (7) Thoracic aortic aneurysm Code(s): I71.2 - THORACIC AORTIC ANEURYSM, WITHOUT RUPTURE Qualifiers: Presence of rupture: without rupture Qualified Code(s): I71.2 - Thoracic aortic aneurysm, without rupture (8) Atrial fibrillation Code(s): I48.91 - UNSPECIFIED ATRIAL FIBRILLATION Qualifiers: Atrial fibrillation type: persistent Qualified Code(s): I48.1 - Persistent atrial fibrillation Assessment/Plan 1. Systolic left ventricular dysfunction with chronic class 0-I [place] [employer] classification left ventricular failure, compensated/euvolemic. 2. Post re-operative AVR (mechanical aortic valve prosthesis), with evidence of moderate to severe eccentric aortic valve regurgitation 3. Ascending thoracic aortic aneurysm post-surgical repair 4. AV block post permanent pacemaker implantation [employer] device, device at [facility] for elective replacement as outpatient 5. Persistent atrial fibrillation [id number] score of 5 on A/C therapy with Coumadin/Heparin 6. History of cerebro-vascular disease 7. HTN 8. Abdominal mass post biopsy 9. History of lymphoma 10. Infected groin wound PLAN: 1. Continue Norvasc 2. Continue Coumadin and continue Heparin drip until INR is therapeutic 3. Patient has an appointment with Dr. Alex Beth of [facility] in regards to generator(battery) change on his pacemaker as outpatient (Feb 23) 4. Further management as per Oncology service 5. Antibiotic coverage Further plans are to follow Chiki Hutchison MD
--- NOTE | 2017-02-19 13:26 | PN ---
Progress Note (short form) - Note Progress Note: Patient seen and examined. He denies any complains. O/E: GENERAL: NAD HEENT: NCAT, port site looks OK. Lungs: CTA b/l Abdomen: Obese NEuro: AAOX3. Last Vital Signs Temp Pulse Resp BP Pulse Ox 97.8 F 67 20 134/78 96 02/18/17 06:00 02/18/17 06:00 02/18/17 06:00 02/18/17 06:00 02/17/17 21:00 CBC, BMP 02/18/17 06:00 02/13/17 08:00 Current Medications Generic Name Dose Route Start Last Admin Trade Name Freq PRN Reason Stop Dose Admin Acetaminophen 650 mg 02/11/17 14:52 Tylenol - PO Q6H PRN FEVER OR PAIN Amlodipine Besylate 2.5 mg 02/12/17 10:00 02/18/17 10:19 Norvasc - PO 2.5 mg DAILY DIANE Administration Docusate Sodium 300 mg 02/11/17 22:00 02/17/17 22:12 Colace - PO 300 mg HS DIANE Administration Heparin Sodium (Porcine) 5,000 unit 02/12/17 09:34 02/16/17 21:27 Heparin - IVPUSH 5,000 unit PRN PRN Administration Heparin Sodium (Porcine) 1,000 unit 02/12/17 09:34 02/12/17 20:36 Heparin - IVPUSH 1,000 unit PRN PRN Administration IV Flush 10 ml 02/12/17 13:42 Gayle-Cath Flush IVPUSH PRN PRN Protocol Vancomycin HCl 1,500 mg/ 500 mls @ 250 mls/hr 02/17/17 17:00 02/18/17 06:11 Dextrose IVPB 250 mls/hr Q12H DIANE Administration Protocol Heparin Sodium/Dextrose 25,000 units in 500 mls @ 20 mls/hr 02/17/17 17:00 10:00 Heparin Infusion - IVPB 1,500 unit/hr TITR DIANE 30 mls/hr Protocol Titration 1,000 UNIT/HR Cefepime HCl 1 gm/ Dextrose 100 mls @ 200 mls/hr 02/18/17 06:00 02/18/17 05: 40 IVPB 200 mls/hr Q8H-IV DIANE Administration Levetiracetam 500 mg 02/11/17 15:00 02/18/17 10:14 Keppra - PO 500 mg BID DIANE Administration Nortriptyline HCl 10 mg 02/11/17 22:00 02/17/17 22:11 Pamelor - PO 10 mg HS DIANE Administration Oxycodone HCl 5 mg 02/11/17 14:52 Roxicodone - PO Q6H PRN PAIN Solifenacin 10 mg 02/12/17 10:00 02/18/17 10:19 Vesicare - PO 10 mg DAILY DIANE Administration Warfarin Sodium 10 mg 02/18/17 18:00 Coumadin - PO DAILY@1800 DIANE RP lymphadenopathy: 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 , limited specimen.. 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 I discussed in detail this with the and patient. , spoke over the phone heparin bridge to coumadin. Groin wound on abx, Cultures negative, wound better. Problem List - Problems (1) Lymphoma Code(s): C85.90 - NON-HODGKIN LYMPHOMA, UNSPECIFIED, UNSPECIFIED SITE Qualifiers: Lymphoma type: non-Hodgkin Non-Hodgkin lymphoma type: follicular Follicular lymphoma grade: grade II Lymphoma site: lower extremity Qualified Code(s): C82.15 - Follicular lymphoma grade II, lymph nodes of inguinal region and lower limb (2) Retroperitoneal mass Code(s): R19.00 - INTRA-ABD AND PELVIC SWELLING, MASS AND LUMP, UNSP SITE (3) History of prosthetic aortic valve Code(s): Z95.2 - PRESENCE OF PROSTHETIC HEART VALVE (4) Pacemaker Code(s): Z95.0 - PRESENCE OF CARDIAC PACEMAKER (5) Old cerebrovascular accident (CVA) without late effect Code(s): Z86.73 - PRSNL HX OF TIA (TIA), AND CEREB INFRC W/O RESID DEFICITS
--- NOTE | 2017-02-19 14:03 | PN ---
Progress Note (short form) - Note Progress Note: No acute events Vital Signs Period Temp Pulse Resp BP Sys/Lugo Pulse Ox Last 24 Hr 97.8 F-98.7 F 67-69 18-20 115-153/64-77 95-98 Left groin- self draining- thin murky fluid, erythema improved, excoriation improved Daily dressing/wound care Antibiotics per ID Does not need further incision and drainage Problem List - Problems (1) Retroperitoneal mass Code(s): R19.00 - INTRA-ABD AND PELVIC SWELLING, MASS AND LUMP, UNSP SITE
--- NOTE | 2017-02-19 15:02 | PATH ---
Surgical Pathology Report Patient Name: GRETEL PAGAN JR Med. Rec. #: [id number] /Age/Gender: 1950 (Age: 66) / M Account: [id number] Location: [facility] MED/SURG Taken: 02/13/2017 Received: 02/13/2017 Reported: 02/19/2017 Physicians: Tacho Marr M.D. Specimen(s) Received RETROPERITONEAL LYMPH NODE Clinical History 66-year-old male with retroperitoneal adenopathy Final Diagnosis LYMPH NODE, RETROPERITONEAL, BIOPSY: LIMITED SPECIMEN WITH MIXED LYMPHOID INFILTRATE. SEE COMMENT. Comments: Histologic sections show a very scant core of poorly preserved fibroadipose tissue. There is patchy infiltrate of mostly small lymphocytes. No definitive follicle formation is present. Immunohistochemical stains for CD20 and CD3 show a mixture of B and T cells, respectively. There is a predominance of CD3+ T cells. A stain for PAX-5 is similar to CD20. Stains for CD10 and BCL-6 are essentially negative in lymphocytes. A stain for BCL-2 is similar to CD3. Stains for CD21 and CD23 does not show definitive follicular dendritic meshworks. Current sample is limited in adequacy and not diagnostic of lymphoma. This case was sent for hematopathology consultation with immunohistochemistry to Dr. Jonathan Mckenna, [facility], [place], [place] ([id number]), the diagnosis above reflects his opinion. Flow cytometry performed and interpreted at [facility], [place], [place] ([id number]) shows a paucicellular limited study. Low numbers of cells in the sample preclude a full marker panel, which limits interpretation. The specimen is essentially nondiagnostic. Patient's history of follicular lymphoma is noted. Suggest clinical/radiologic correlation. See [facility] reports ([id number] & [id number]) for additional details. Findings discussed with Dr. Dailey. Electronically Signed Vanda Angel M.D. Gross Description Received in formalin, labeled with the patient's name and indicated on the requisition to be a lymph node biopsy, are 2 ying, cylindrical portions of soft tissue averaging 1.8 cm in length and 0.1 cm in diameter. The specimens are submitted in toto in one cassette. There is additional tissue received in RPMI solution which is sent for flow cytometry. 02/13/201702/13/2017
--- NOTE | 2017-02-19 15:35 | PN ---
Progress Note (short form) - Note Progress Note: very upset that he was not discharged due to low INR Vital Signs Period Temp Pulse Resp BP Sys/Lugo Pulse Ox Last 24 Hr 97.8 F-98.5 F 67-69 18-20 123-153/68-77 95-98 cor-rrr lungs clear abd soft groin dressing intact- does not want me to remove ext no edema CBC, BMP 02/18/17 06:00 02/19/17 06:00 Microbiology 02/17/17 17:30 Groin Gram Stain - Final 02/17/17 17:30 Groin Wound Culture - Preliminary NO GROWTH OBTAINED AFTER 24 HOURS INCUBATION, REINCUBATED. 02/17/17 17:10 Blood - Peripheral Venous Blood Culture - Preliminary NO GROWTH OBTAINED AFTER 24 HOURS, INCUBATION TO CONTINUE FOR 4 DAYS. 02/17/17 17:10 Blood - Peripheral Venous Blood Culture - Preliminary NO GROWTH OBTAINED AFTER 24 HOURS, INCUBATION TO CONTINUE FOR 4 DAYS. a/p infected groin wound history mrsa lymphoma prosthetic AVR PPM continue vancomycin, dose decreased due to high trough, plan po clindamycin for discharge 450 tid for one week with wound care Problem List - Problems (1) Wound of left groin Code(s): S31.109A - UNSP OPN WND ABD WALL, UNSP Q W/O PENET PERIT CAV, INIT Qualifiers: Encounter type: subsequent encounter Qualified Code(s): S31.109D - Unspecified open wound of abdominal wall, unspecified quadrant without penetration into peritoneal cavity, subsequent encounter (2) MRSA (methicillin resistant staph aureus) culture positive Code(s): Z22.322 - CARRIER OR SUSPECTED CARRIER OF METHICILLIN RESIS STAPH (3) Lymphoma Code(s): C85.90 - NON-HODGKIN LYMPHOMA, UNSPECIFIED, UNSPECIFIED SITE Qualifiers: Lymphoma type: non-Hodgkin Non-Hodgkin lymphoma type: follicular Follicular lymphoma grade: grade II Lymphoma site: lower extremity Qualified Code(s): C82.15 - Follicular lymphoma grade II, lymph nodes of inguinal region and lower limb (4) History of prosthetic aortic valve Code(s): Z95.2 - PRESENCE OF PROSTHETIC HEART VALVE (5) Pacemaker Code(s): Z95.0 - PRESENCE OF CARDIAC PACEMAKER
[2017-02-19] MEDS: WARFARIN NA 10 MG TABLET (FP) PO SCH (17:42)
[2017-02-19] MEDS: DOCUSATE SODIUM 100 MG CAPSULE (FP) PO SCH (21:11)
[2017-02-19] MEDS: NORTRIPTYLINE HCL 10 MG CAPSULE PO SCH (21:12)
[2017-02-20] MEDS: VANCOMYCIN 1,250 MG in DEXTROSE 5%-WATER - 250 ML IVPB SCH (06:06)
[2017-02-20 07:28] LABS: ANION GAP 4 (8-16); BLOOD UREA NITROGEN 19 mg/dL (7-18); CALCIUM 8.9 mg/dL (8.5-10.1); CHLORIDE 104 mmol/L (98-107); CO2 30 mmol/L (21-32); CREATININE 0.8 mg/dL (0.7-1.3); GLUCOSE,RANDOM 99 mg/dL (74-106); POTASSIUM 4.2 mmol/L (3.5-5.1); SODIUM 138 mmol/L (136-145)
[2017-02-20 07:29] LABS: HEMOGLOBIN 12.5 GM/dL (11.7-16.9); MCH 32.9 pg (25.7-33.7); MCHC 33.8 g/dl (32.0-35.9); MEAN CELL VOLUME 97.3 fl (80-96); MEAN PLT VOLUME 9.1 fl (7.5-11.1); PLATELET COUNT 149 K/MM3 (134-434); RDW 13.7 % (11.9-15.9); WHITE BLOOD COUNT 5.8 K/mm3 (4.0-10.0)
--- NOTE | 2017-02-20 09:04 | DS ---
Physical Examination Vital Signs: Vital Signs Temperature 97.6 F 02/20/17 06:00 Pulse Rate 67 02/20/17 06:00 Respiratory Rate 20 02/20/17 06:00 Blood Pressure 115/65 02/20/17 06:00 O2 Sat by Pulse Oximetry (%) 96 02/19/17 20:23 Findings/Remarks: AWAKE ALERT AND NAD Constitutional: Yes: No Distress Eyes: Yes: WNL HENT: Yes: WNL Neck: Yes: WNL Cardiovascular: Yes: Pulse Irregular, Murmur Respiratory: Yes: WNL Gastrointestinal: Yes: WNL Renal/: Yes: WNL Musculoskeletal: Yes: Muscle Weakness Extremities: Yes: WNL Edema: Yes Peripheral Pulses WNL: Yes Integumentary: Yes: Venous Stasis Changes Wound/Incision: Yes: Unapproximated, Other Neurological: Yes: Pre-Existing Deficit ...Motor Strength: LLE, RLE Psychiatric: Yes: Other Labs: CBC, BMP 02/20/17 06:25 02/20/17 06:25 Discharge Summary Reason For Visit: MASS Current Active Problems Atrial fibrillation (Acute) Elective replacement indicated for cardiac pacemaker battery at end of lifespan (Acute) Mass (Acute) Retroperitoneal mass (Acute) Systolic dysfunction without heart failure (Acute) Thoracic aortic aneurysm (Acute) Wound of left groin (Acute) Procedures: Principal: ADMITTED FOR ABD RETROPERITONEAL LYMPHNODE BIOPSY Hospital Course: ADMITTED FOR RETROPERITONEAL BIOPSY, ANTICOAGULATION WAS STOPPED ORAL WARFARIN AND CHANGED TO IV HEPARIN UNTIL THERAPEUTIC, DC PLANNNING WITH ONCOLOGY FOLLOW UP, TREATED FOR LEFT GROIN INFECTION WITH IV ABX. Condition: Stable - Instructions Diet, Activity, Other Instructions: SEE DR MONET THURSDAY AT [address] FOR INR CHECK LOW SALT DIET Referrals: Viridiana Monet MD [Primary Care Provider] - Disposition: VNS/HOME HEALTH CARE - Home Medications Comprehensive Discharge Medication List: Ambulatory Orders Aspirin [ASA -] 81 mg PO DAILY 01/12/17 Atorvastatin Ca [Lipitor] 40 mg PO HS 01/12/17 Warfarin Sodium [Coumadin] 7.5 mg PO DAILY 01/12/17 Docusate Sodium [Colace -] 100 mg PO TID #90 capsule 01/15/17 Oxycodone HCl/Acetaminophen [Percocet 5-325 mg Tablet] 1 - 2 tab PO Q4H #20 tablet MDD 4 01/15/17 Amlodipine Besylate [Norvasc -] 2.5 mg PO BID tablet 01/21/17 Levetiracetam [Keppra -] 500 mg PO BID tablet 01/21/17 Nortriptyline HCl [Pamelor -] 10 mg PO HS capsule 01/21/17 Solifenacin Succinate [VESIcare] 10 mg NR DAILY 02/11/17
[2017-02-20] MEDS ORDERED: PT OWN MED DRAWER 7, Y5N ONE (09:27)
[2017-02-20 09:31] LABS: INR 1.28 (0.82-1.09); PROTHROMBIN TIME (PATIENT) 14.5 SEC (9.98-11.88)
[2017-02-20] MEDS ORDERED: CLINDAMYCIN HCL 150 MG CAPSULE (FP) PO SCH (10:00)
--- NOTE | 2017-02-20 11:16 | PN ---
Progress Note, Physician History of Present Illness: s/p port implant and RP mass biopsy. On hep gtt->coumadin. - Current Medication List Current Medications: Active Medications Acetaminophen (Tylenol -) 650 mg PO Q6H PRN PRN Reason: FEVER OR PAIN Amlodipine Besylate (Norvasc -) 2.5 mg PO DAILY [facility] Last Admin: 02/19/17 10:04 Dose: 2.5 mg Clindamycin HCl (Cleocin -) 450 mg PO BID [facility] Docusate Sodium (Colace -) 300 mg PO HS [facility] Last Admin: 02/19/17 21:11 Dose: 300 mg IV Flush (Gayle-Cath Flush) 10 ml IVPUSH PRN PRN PRN Reason: Protocol Heparin Sodium/Dextrose (Heparin Infusion -) 25,000 units in 500 mls @ 20 mls/ hr IVPB TITR DIANE; 1,000 UNIT/HR PRN Reason: Protocol Last Admin: 02/19/17 17:42 Dose: 1,450 unit/hr, 29 mls/hr Vancomycin HCl 1,250 mg/ (Dextrose) 250 mls @ 166.667 mls/hr IVPB BID@0700, 1900 [facility] Last Admin: 02/20/17 06:06 Dose: 166.667 mls/hr Levetiracetam (Keppra -) 500 mg PO BID [facility] Last Admin: 02/19/17 21:12 Dose: 500 mg Nortriptyline HCl (Pamelor -) 10 mg PO HS [facility] Last Admin: 02/19/17 21:12 Dose: 10 mg Oxycodone HCl (Roxicodone -) 5 mg PO Q6H PRN PRN Reason: PAIN Solifenacin (Vesicare -) 10 mg PO DAILY [facility] Last Admin: 02/19/17 18:50 Dose: 10 mg Warfarin Sodium (Coumadin -) 10 mg PO DAILY@1800 [facility] Last Admin: 02/19/17 17:42 Dose: 10 mg - Objective Vital Signs: Vital Signs Temperature 97.6 F 02/20/17 06:00 Pulse Rate 67 02/20/17 06:00 Respiratory Rate 20 02/20/17 06:00 Blood Pressure 115/65 02/20/17 06:00 O2 Sat by Pulse Oximetry (%) 96 02/19/17 20:23 Constitutional: Yes: No Distress, Calm Neck: Yes: Supple Cardiovascular: Yes: Pulse Irregular, Other ([place] mechanical valve sounds) Respiratory: Yes: Regular, CTA Bilaterally Gastrointestinal: Yes: Normal Bowel Sounds, Soft Edema: No Labs: CBC, BMP 02/20/17 06:25 02/20/17 06:25 INR, PTT INR 1.28 (0.82-1.09) H 02/20/17 06:25 Problem List - Problems (1) Elective replacement indicated for cardiac pacemaker battery at end of lifespan Code(s): Z45.010 - ENCNTR FOR CHECKING AND TEST OF CARD PACEMAKER PULSE GNRTR (2) Systolic dysfunction without heart failure Code(s): I51.9 - HEART DISEASE, UNSPECIFIED (3) Atrial fibrillation Code(s): I48.91 - UNSPECIFIED ATRIAL FIBRILLATION Qualifiers: Atrial fibrillation type: persistent Qualified Code(s): I48.1 - Persistent atrial fibrillation (4) Retroperitoneal mass Code(s): R19.00 - INTRA-ABD AND PELVIC SWELLING, MASS AND LUMP, UNSP SITE (5) Thoracic aortic aneurysm Code(s): I71.2 - THORACIC AORTIC ANEURYSM, WITHOUT RUPTURE Qualifiers: Presence of rupture: without rupture Qualified Code(s): I71.2 - Thoracic aortic aneurysm, without rupture (6) Wound of left groin Code(s): S31.109A - UNSP OPN WND ABD WALL, UNSP Q W/O PENET PERIT CAV, INIT Qualifiers: Encounter type: subsequent encounter Qualified Code(s): S31.109D - Unspecified open wound of abdominal wall, unspecified quadrant without penetration into peritoneal cavity, subsequent encounter (7) HTN (hypertension) Code(s): I10 - ESSENTIAL (PRIMARY) HYPERTENSION Qualifiers: Hypertension type: essential hypertension Qualified Code(s): I10 - Essential (primary) hypertension (8) History of prosthetic aortic valve Code(s): Z95.2 - PRESENCE OF PROSTHETIC HEART VALVE (9) Lymphoma Code(s): C85.90 - NON-HODGKIN LYMPHOMA, UNSPECIFIED, UNSPECIFIED SITE Qualifiers: Lymphoma type: non-Hodgkin Non-Hodgkin lymphoma type: follicular Follicular lymphoma grade: grade II Lymphoma site: lower extremity Qualified Code(s): C82.15 - Follicular lymphoma grade II, lymph nodes of inguinal region and lower limb (10) Old cerebrovascular accident (CVA) without late effect Code(s): Z86.73 - PRSNL HX OF TIA (TIA), AND CEREB INFRC W/O RESID DEFICITS (11) Pacemaker Code(s): Z95.0 - PRESENCE OF CARDIAC PACEMAKER Assessment/Plan 1. Systolic left ventricular dysfunction with chronic class 0-I [place] [employer] classification left ventricular failure, compensated/euvolemic. 2. Post re-operative AVR (mechanical aortic valve prosthesis), with evidence of moderate to severe eccentric aortic valve regurgitation 3. Ascending thoracic aortic aneurysm post-surgical repair 4. AV block post permanent pacemaker implantation [employer] device, device at [facility] for elective replacement as outpatient 5. Persistent atrial fibrillation [id number] score of 5 on A/C therapy with Heparin gtt->coumadin with subtherapeutic INR 6. History of cerebro-vascular disease 7. HTN 8. 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 Infected groin wound PLAN: 1. Continue Norvasc 2.5 qd 2. Continue Coumadin and continue Heparin drip until INR is therapeutic 2.5-3.5 3. Patient has an appointment with Dr. Alex Beth of [facility] in regards to generator(battery) change on his pacemaker as outpatient (Feb 23) 4. Plan for combination chemotherapy after generator change 5. Complete antibiotic course, wound care
--- NOTE | 2017-02-20 11:22 | PN ---
Progress Note (short form) - Note Progress Note: Patient seen and examined. He denies any complains. O/E: GENERAL: NAD HEENT: NCAT, port site looks OK. Lungs: CTA b/l Abdomen: Obese NEuro: AAOX3. Last Vital Signs Temp Pulse Resp BP Pulse Ox 97.8 F 67 20 134/78 96 02/18/17 06:00 02/18/17 06:00 02/18/17 06:00 02/18/17 06:00 02/17/17 21:00 CBC, BMP 02/18/17 06:00 02/13/17 08:00 Current Medications Generic Name Dose Route Start Last Admin Trade Name Freq PRN Reason Stop Dose Admin Acetaminophen 650 mg 02/11/17 14:52 Tylenol - PO Q6H PRN FEVER OR PAIN Amlodipine Besylate 2.5 mg 02/12/17 10:00 02/18/17 10:19 Norvasc - PO 2.5 mg DAILY DIANE Administration Docusate Sodium 300 mg 02/11/17 22:00 02/17/17 22:12 Colace - PO 300 mg HS DIANE Administration Heparin Sodium (Porcine) 5,000 unit 02/12/17 09:34 02/16/17 21:27 Heparin - IVPUSH 5,000 unit PRN PRN Administration Heparin Sodium (Porcine) 1,000 unit 02/12/17 09:34 02/12/17 20:36 Heparin - IVPUSH 1,000 unit PRN PRN Administration IV Flush 10 ml 02/12/17 13:42 Gayle-Cath Flush IVPUSH PRN PRN Protocol Vancomycin HCl 1,500 mg/ 500 mls @ 250 mls/hr 02/17/17 17:00 02/18/17 06:11 Dextrose IVPB 250 mls/hr Q12H DIANE Administration Protocol Heparin Sodium/Dextrose 25,000 units in 500 mls @ 20 mls/hr 02/17/17 17:00 10:00 Heparin Infusion - IVPB 1,500 unit/hr TITR DIANE 30 mls/hr Protocol Titration 1,000 UNIT/HR Cefepime HCl 1 gm/ Dextrose 100 mls @ 200 mls/hr 02/18/17 06:00 02/18/17 05: 40 IVPB 200 mls/hr Q8H-IV DIANE Administration Levetiracetam 500 mg 02/11/17 15:00 02/18/17 10:14 Keppra - PO 500 mg BID DIANE Administration Nortriptyline HCl 10 mg 02/11/17 22:00 02/17/17 22:11 Pamelor - PO 10 mg HS DIANE Administration Oxycodone HCl 5 mg 02/11/17 14:52 Roxicodone - PO Q6H PRN PAIN Solifenacin 10 mg 02/12/17 10:00 02/18/17 10:19 Vesicare - PO 10 mg DAILY DIANE Administration Warfarin Sodium 10 mg 02/18/17 18:00 Coumadin - PO DAILY@1800 DIANE for d.c today with PO abx and wound care with lovenox to coumadin f.u in office for initiation of chemo. pt and aware Problem List - Problems (1) Lymphoma Code(s): C85.90 - NON-HODGKIN LYMPHOMA, UNSPECIFIED, UNSPECIFIED SITE Qualifiers: Lymphoma type: non-Hodgkin Non-Hodgkin lymphoma type: follicular Follicular lymphoma grade: grade II Lymphoma site: lower extremity Qualified Code(s): C82.15 - Follicular lymphoma grade II, lymph nodes of inguinal region and lower limb (2) Retroperitoneal mass Code(s): R19.00 - INTRA-ABD AND PELVIC SWELLING, MASS AND LUMP, UNSP SITE (3) History of prosthetic aortic valve Code(s): Z95.2 - PRESENCE OF PROSTHETIC HEART VALVE (4) Pacemaker Code(s): Z95.0 - PRESENCE OF CARDIAC PACEMAKER (5) Old cerebrovascular accident (CVA) without late effect Code(s): Z86.73 - PRSNL HX OF TIA (TIA), AND CEREB INFRC W/O RESID DEFICITS
[2017-02-20] MEDS: levETIRAcetam 500 MG TABLET (FP) PO SCH ×2 (11:32→21:40)
[2017-02-20] MEDS: SOLIFENACIN SUCCINATE 5 MG TAB (FP) PO SCH (11:33)
[2017-02-20] MEDS: amLODIPine BESYLATE 2.5 MG TABLET (FP) PO SCH (11:33)
[2017-02-20] MEDS: HEPARIN INFUSION - 25,000 UNITS/500 ML INFUS.BAG IVPB SCH ×2 (15:03→18:45)
[2017-02-20] MEDS: WARFARIN NA 10 MG TABLET (FP) PO SCH (18:48)
[2017-02-20] MEDS: CLINDAMYCIN HCL 150 MG CAPSULE (FP) PO SCH (21:40)
[2017-02-20] MEDS: DOCUSATE SODIUM 100 MG CAPSULE (FP) PO SCH (21:41)
[2017-02-20] MEDS: NORTRIPTYLINE HCL 10 MG CAPSULE PO SCH (22:30)
[2017-02-21] MEDS: CLINDAMYCIN HCL 150 MG CAPSULE (FP) PO SCH ×3 (06:17→22:09)
[2017-02-21 08:26] LABS: INR 1.34 (0.82-1.09); PROTHROMBIN TIME (PATIENT) 15.1 SEC (9.98-11.88)
[2017-02-21] MEDS: HEPARIN INFUSION - 25,000 UNITS/500 ML INFUS.BAG IVPB SCH ×2 (08:50→17:11)
--- NOTE | 2017-02-21 09:19 | PN ---
Progress Note, Physician History of Present Illness: ANXIOUS TO GO HOME - Current Medication List Current Medications: Active Medications Acetaminophen (Tylenol -) 650 mg PO Q6H PRN PRN Reason: FEVER OR PAIN Amlodipine Besylate (Norvasc -) 2.5 mg PO DAILY [facility] Last Admin: 02/20/17 11:33 Dose: 2.5 mg Clindamycin HCl (Cleocin -) 300 mg PO TID [facility] Last Admin: 02/21/17 06:17 Dose: 300 mg Docusate Sodium (Colace -) 300 mg PO HS [facility] Last Admin: 02/20/17 21:41 Dose: 300 mg IV Flush (Gayle-Cath Flush) 10 ml IVPUSH PRN PRN PRN Reason: Protocol Heparin Sodium/Dextrose (Heparin Infusion -) 25,000 units in 500 mls @ 20 mls/ hr IVPB TITR DIANE; 1,000 UNIT/HR PRN Reason: Protocol Last Admin: 02/21/17 08:50 Dose: 1,450 unit/hr, 29 mls/hr Levetiracetam (Keppra -) 500 mg PO BID [facility] Last Admin: 02/20/17 21:40 Dose: 500 mg Nortriptyline HCl (Pamelor -) 10 mg PO HS [facility] Last Admin: 02/20/17 22:30 Dose: 10 mg Oxycodone HCl (Roxicodone -) 5 mg PO Q6H PRN PRN Reason: PAIN Solifenacin (Vesicare -) 10 mg PO DAILY [facility] Last Admin: 02/20/17 11:33 Dose: 10 mg Warfarin Sodium (Coumadin -) 10 mg PO DAILY@1800 [facility] Last Admin: 02/20/17 18:48 Dose: 10 mg - Objective Vital Signs: Vital Signs Temperature 97.6 F 02/20/17 22:00 Pulse Rate 64 02/20/17 22:00 Respiratory Rate 18 02/20/17 22:00 Blood Pressure 112/62 02/20/17 22:00 O2 Sat by Pulse Oximetry (%) 96 02/20/17 20:37 Cardiovascular: Yes: S1, S2 Respiratory: Yes: Regular, CTA Bilaterally Gastrointestinal: Yes: Normal Bowel Sounds, Soft Edema: No Labs: CBC, BMP 02/20/17 06:25 02/20/17 06:25 INR, PTT INR 1.34 (0.82-1.09) H 02/21/17 06:20 Problem List - Problems (1) Atrial fibrillation Assessment/Plan: COUMADIN AND HEPARIN INR STILL SUBTHERAPEUTIC Code(s): I48.91 - UNSPECIFIED ATRIAL FIBRILLATION Qualifiers: Atrial fibrillation type: persistent Qualified Code(s): I48.1 - Persistent atrial fibrillation (2) History of prosthetic aortic valve Assessment/Plan: ABOVE Code(s): Z95.2 - PRESENCE OF PROSTHETIC HEART VALVE (3) Lymphoma Assessment/Plan: CHEMO OUTPATIENT Code(s): C85.90 - NON-HODGKIN LYMPHOMA, UNSPECIFIED, UNSPECIFIED SITE Qualifiers: Lymphoma type: non-Hodgkin Non-Hodgkin lymphoma type: follicular Follicular lymphoma grade: grade II Lymphoma site: lower extremity Qualified Code(s): C82.15 - Follicular lymphoma grade II, lymph nodes of inguinal region and lower limb
--- NOTE | 2017-02-21 10:17 | PN ---
Progress Note, Physician History of Present Illness: s/p port implant and RP mass biopsy. On hep gtt->coumadin, awaiting therapeutic INR, frustrated. - Current Medication List Current Medications: Active Medications Acetaminophen (Tylenol -) 650 mg PO Q6H PRN PRN Reason: FEVER OR PAIN Amlodipine Besylate (Norvasc -) 2.5 mg PO DAILY [facility] Last Admin: 02/20/17 11:33 Dose: 2.5 mg Clindamycin HCl (Cleocin -) 300 mg PO TID [facility] Last Admin: 02/21/17 06:17 Dose: 300 mg Docusate Sodium (Colace -) 300 mg PO HS [facility] Last Admin: 02/20/17 21:41 Dose: 300 mg IV Flush (Gayle-Cath Flush) 10 ml IVPUSH PRN PRN PRN Reason: Protocol Heparin Sodium/Dextrose (Heparin Infusion -) 25,000 units in 500 mls @ 20 mls/ hr IVPB TITR DIANE; 1,000 UNIT/HR PRN Reason: Protocol Last Admin: 02/21/17 08:50 Dose: 1,450 unit/hr, 29 mls/hr Levetiracetam (Keppra -) 500 mg PO BID [facility] Last Admin: 02/20/17 21:40 Dose: 500 mg Nortriptyline HCl (Pamelor -) 10 mg PO HS [facility] Last Admin: 02/20/17 22:30 Dose: 10 mg Oxycodone HCl (Roxicodone -) 5 mg PO Q6H PRN PRN Reason: PAIN Solifenacin (Vesicare -) 10 mg PO DAILY [facility] Last Admin: 02/20/17 11:33 Dose: 10 mg Warfarin Sodium (Coumadin -) 10 mg PO DAILY@1800 [facility] Last Admin: 02/20/17 18:48 Dose: 10 mg - Objective Vital Signs: Vital Signs Temperature 97.2 F L 02/21/17 09:00 Pulse Rate 67 02/21/17 09:00 Respiratory Rate 20 02/21/17 09:00 Blood Pressure 128/74 02/21/17 09:00 O2 Sat by Pulse Oximetry (%) 96 02/20/17 20:37 Constitutional: Yes: No Distress, Calm Neck: Yes: Supple Cardiovascular: Yes: Regular Rate and Rhythm, Other ([place] mechanical valve sounds) Respiratory: Yes: Regular, Diminished Gastrointestinal: Yes: Normal Bowel Sounds, Soft Edema: No Labs: CBC, BMP 02/20/17 06:25 02/20/17 06:25 INR, PTT INR 1.34 (0.82-1.09) H 02/21/17 06:20 Problem List - Problems (1) Elective replacement indicated for cardiac pacemaker battery at end of lifespan Code(s): Z45.010 - ENCNTR FOR CHECKING AND TEST OF CARD PACEMAKER PULSE GNRTR (2) Systolic dysfunction without heart failure Code(s): I51.9 - HEART DISEASE, UNSPECIFIED (3) Atrial fibrillation Code(s): I48.91 - UNSPECIFIED ATRIAL FIBRILLATION Qualifiers: Atrial fibrillation type: persistent Qualified Code(s): I48.1 - Persistent atrial fibrillation (4) Retroperitoneal mass Code(s): R19.00 - INTRA-ABD AND PELVIC SWELLING, MASS AND LUMP, UNSP SITE (5) Thoracic aortic aneurysm Code(s): I71.2 - THORACIC AORTIC ANEURYSM, WITHOUT RUPTURE Qualifiers: Presence of rupture: without rupture Qualified Code(s): I71.2 - Thoracic aortic aneurysm, without rupture (6) Wound of left groin Code(s): S31.109A - UNSP OPN WND ABD WALL, UNSP Q W/O PENET PERIT CAV, INIT Qualifiers: Encounter type: subsequent encounter Qualified Code(s): S31.109D - Unspecified open wound of abdominal wall, unspecified quadrant without penetration into peritoneal cavity, subsequent encounter (7) HTN (hypertension) Code(s): I10 - ESSENTIAL (PRIMARY) HYPERTENSION Qualifiers: Hypertension type: essential hypertension Qualified Code(s): I10 - Essential (primary) hypertension (8) History of prosthetic aortic valve Code(s): Z95.2 - PRESENCE OF PROSTHETIC HEART VALVE (9) Lymphoma Code(s): C85.90 - NON-HODGKIN LYMPHOMA, UNSPECIFIED, UNSPECIFIED SITE Qualifiers: Lymphoma type: non-Hodgkin Non-Hodgkin lymphoma type: follicular Follicular lymphoma grade: grade II Lymphoma site: lower extremity Qualified Code(s): C82.15 - Follicular lymphoma grade II, lymph nodes of inguinal region and lower limb (10) Old cerebrovascular accident (CVA) without late effect Code(s): Z86.73 - PRSNL HX OF TIA (TIA), AND CEREB INFRC W/O RESID DEFICITS () Pacemaker Code(s): Z95.0 - PRESENCE OF CARDIAC PACEMAKER Assessment/Plan 1. Systolic left ventricular dysfunction with chronic class 0-I [place] Heart Association classification left ventricular failure, compensated/euvolemic. 2. Post re-operative AVR (mechanical aortic valve prosthesis), with evidence of moderate to severe eccentric aortic valve regurgitation 3. Ascending thoracic aortic aneurysm post-surgical repair 4. AV block post permanent pacemaker implantation [employer] device, device at [facility] for elective replacement as outpatient 5. Persistent atrial fibrillation [id number] score of 5 on A/C therapy with Heparin gtt->coumadin with subtherapeutic INR 6. History of cerebrovascular disease 7. HTN 8. 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 Infected groin wound PLAN: 1. Continue Norvasc 2.5 qd 2. Increase Coumadin dose and continue Heparin drip until INR is therapeutic 2.5 -3.5 3. Patient has an appointment with Dr. Alex Beth of [facility] in regards to generator(battery) change on his pacemaker as outpatient (Feb 23) 4. Plan for combination chemotherapy after generator change 5. Complete antibiotic course, wound care
[2017-02-21] MEDS: SOLIFENACIN SUCCINATE 5 MG TAB (FP) PO SCH (11:20)
[2017-02-21] MEDS: levETIRAcetam 500 MG TABLET (FP) PO SCH ×2 (11:20→22:09)
[2017-02-21] MEDS: amLODIPine BESYLATE 2.5 MG TABLET (FP) PO SCH (11:20)
--- NOTE | 2017-02-21 15:07 | PN ---
Progress Note (short form) - Note Progress Note: Patient seen and examined Denies any complaints Last Vital Signs Temp Pulse Resp BP Pulse Ox 97.2 F L 67 20 128/74 96 02/21/17 09:00 02/21/17 09:00 02/21/17 09:00 02/21/17 09:00 02/20/17 20:37 Cor: RSR, No murmurs, No gallops Lungs: Clear to P&A Abd: Soft, Normal bowel sounds, No organomegaly Ext:No significant edema Abnormal Lab Results 02/21/17 02/21/17 06:00 06:20 PT with INR 15.10 H INR 1.34 H PTT (Actin FS) 73.4 H Active Medications Acetaminophen (Tylenol -) 650 mg PO Q6H PRN PRN Reason: FEVER OR PAIN Amlodipine Besylate (Norvasc -) 2.5 mg PO DAILY [facility] Last Admin: 02/21/17 11:20 Dose: 2.5 mg Clindamycin HCl (Cleocin -) 300 mg PO TID [facility] Last Admin: 02/21/17 06:17 Dose: 300 mg Docusate Sodium (Colace -) 300 mg PO HS [facility] Last Admin: 02/20/17 21:41 Dose: 300 mg IV Flush (Gayle-Cath Flush) 10 ml IVPUSH PRN PRN PRN Reason: Protocol Heparin Sodium/Dextrose (Heparin Infusion -) 25,000 units in 500 mls @ 20 mls/ hr IVPB TITR DIANE; 1,000 UNIT/HR PRN Reason: Protocol Last Admin: 02/21/17 08:50 Dose: 1,450 unit/hr, 29 mls/hr Levetiracetam (Keppra -) 500 mg PO BID [facility] Last Admin: 02/21/17 11:20 Dose: 500 mg Nortriptyline HCl (Pamelor -) 10 mg PO HS [facility] Last Admin: 02/20/17 22:30 Dose: 10 mg Oxycodone HCl (Roxicodone -) 5 mg PO Q6H PRN PRN Reason: PAIN Solifenacin (Vesicare -) 10 mg PO DAILY [facility] Last Admin: 02/21/17 11:20 Dose: 10 mg Warfarin Sodium 10 mg/ (Warfarin Sodium 2.5 mg) 12.5 mg PO ONCE@1800 ONE Stop: 02/21/17 18:01 A/P 66 y/o patient with follicular lymphoma concern for transformation await pathology on heparin drip bridging to coumadin-- INR subtherapeutic
[2017-02-21] MEDS ORDERED: WARFARIN NA 2.5 MG TABLET (FP) ONE (17:07)
[2017-02-21] MEDS ORDERED: WARFARIN NA 10 MG TABLET (FP) ONE (17:07)
[2017-02-21] MEDS ORDERED: WARFARIN NA 10 MG, WARFARIN NA 2.5 MG PO ONE (18:00)
[2017-02-21] MEDS ORDERED: WARFARIN NA 10 MG TABLET (FP) PO ONE (18:00)
[2017-02-21] MEDS: DOCUSATE SODIUM 100 MG CAPSULE (FP) PO SCH (22:00)
[2017-02-21] MEDS: NORTRIPTYLINE HCL 10 MG CAPSULE PO SCH (22:09)
[2017-02-22] MEDS: HEPARIN INFUSION - 25,000 UNITS/500 ML INFUS.BAG IVPB SCH ×3 (03:17→20:30)
[2017-02-22] MEDS: CLINDAMYCIN HCL 150 MG CAPSULE (FP) PO SCH ×3 (05:42→21:24)
[2017-02-22 07:05] LABS: INR 1.59 (0.82-1.09)
[2017-02-22] MEDS ORDERED: PT OWN MED DRAWER 7, Y5N ONE ×2 (10:40→21:12)
[2017-02-22] MEDS: amLODIPine BESYLATE 2.5 MG TABLET (FP) PO SCH (11:00)
[2017-02-22] MEDS: SOLIFENACIN SUCCINATE 5 MG TAB (FP) PO SCH (11:00)
[2017-02-22] MEDS: levETIRAcetam 500 MG TABLET (FP) PO SCH ×2 (11:00→21:24)
--- NOTE | 2017-02-22 14:34 | PN ---
Progress Note, Physician History of Present Illness: ANXIOUS TO GO HOME - Current Medication List Current Medications: Active Medications Acetaminophen (Tylenol -) 650 mg PO Q6H PRN PRN Reason: FEVER OR PAIN Amlodipine Besylate (Norvasc -) 2.5 mg PO DAILY [facility] Last Admin: 02/22/17 11:00 Dose: 2.5 mg Clindamycin HCl (Cleocin -) 300 mg PO TID [facility] Last Admin: 02/22/17 05:42 Dose: 300 mg Docusate Sodium (Colace -) 300 mg PO HS [facility] Last Admin: 02/21/17 22:00 Dose: 300 mg IV Flush (Gayle-Cath Flush) 10 ml IVPUSH PRN PRN PRN Reason: Protocol Heparin Sodium/Dextrose (Heparin Infusion -) 25,000 units in 500 mls @ 20 mls/ hr IVPB TITR DIANE; 1,000 UNIT/HR PRN Reason: Protocol Last Admin: 02/22/17 03:17 Dose: 1,450 unit/hr, 29 mls/hr Levetiracetam (Keppra -) 500 mg PO BID [facility] Last Admin: 02/22/17 11:00 Dose: 500 mg Nortriptyline HCl (Pamelor -) 10 mg PO HS [facility] Last Admin: 02/21/17 22:09 Dose: 10 mg Oxycodone HCl (Roxicodone -) 5 mg PO Q6H PRN PRN Reason: PAIN Solifenacin (Vesicare -) 10 mg PO DAILY [facility] Last Admin: 02/22/17 11:00 Dose: 10 mg - Objective Vital Signs: Vital Signs Temperature 98.3 F 02/22/17 14:18 Pulse Rate 67 02/22/17 14:18 Respiratory Rate 20 02/22/17 14:18 Blood Pressure 132/73 02/22/17 14:18 O2 Sat by Pulse Oximetry (%) 98 02/22/17 09:00 Cardiovascular: Yes: S1, S2 Respiratory: Yes: Regular, CTA Bilaterally Gastrointestinal: Yes: Normal Bowel Sounds, Soft Labs: CBC, BMP 02/20/17 06:25 02/20/17 06:25 INR, PTT INR 1.59 (0.82-1.09) H 02/22/17 05:30 Problem List - Problems (1) Atrial fibrillation Assessment/Plan: COUMADIN AND HEPARIN INR STILL SUBTHERAPEUTIC Code(s): I48.91 - UNSPECIFIED ATRIAL FIBRILLATION Qualifiers: Atrial fibrillation type: persistent Qualified Code(s): I48.1 - Persistent atrial fibrillation (2) History of prosthetic aortic valve Assessment/Plan: ABOVE Code(s): Z95.2 - PRESENCE OF PROSTHETIC HEART VALVE (3) Lymphoma Assessment/Plan: CHEMO OUTPATIENT Code(s): C85.90 - NON-HODGKIN LYMPHOMA, UNSPECIFIED, UNSPECIFIED SITE Qualifiers: Lymphoma type: non-Hodgkin Non-Hodgkin lymphoma type: follicular Follicular lymphoma grade: grade II Lymphoma site: lower extremity Qualified Code(s): C82.15 - Follicular lymphoma grade II, lymph nodes of inguinal region and lower limb
[2017-02-22] MEDS ORDERED: WARFARIN NA 2.5 MG TABLET (FP) ONE (17:16)
[2017-02-22] MEDS ORDERED: WARFARIN NA 10 MG TABLET (FP) ONE (17:17)
[2017-02-22] MEDS ORDERED: WARFARIN NA 10 MG, WARFARIN NA 2.5 MG PO ONE (18:00)
[2017-02-22 20:57] VITALS: PULSE 67
[2017-02-22] MEDS: DOCUSATE SODIUM 100 MG CAPSULE (FP) PO SCH (21:23)
[2017-02-22] MEDS: NORTRIPTYLINE HCL 10 MG CAPSULE PO SCH (21:24)
[2017-02-23] MEDS: CLINDAMYCIN HCL 150 MG CAPSULE (FP) PO SCH ×3 (06:13→21:01)
[2017-02-23 08:06] LABS: INR 1.71 (0.82-1.09); PROTHROMBIN TIME (PATIENT) 19.3 SEC (9.98-11.88)
[2017-02-23] MEDS: amLODIPine BESYLATE 2.5 MG TABLET (FP) PO SCH (10:07)
[2017-02-23] MEDS: levETIRAcetam 500 MG TABLET (FP) PO SCH ×2 (10:07→21:01)
[2017-02-23] MEDS: SOLIFENACIN SUCCINATE 5 MG TAB (FP) PO SCH (10:08)
[2017-02-23] MEDS: HEPARIN INFUSION - 25,000 UNITS/500 ML INFUS.BAG IVPB SCH ×3 (10:49→18:16)
--- NOTE | 2017-02-23 11:43 | PN ---
Progress Note, Physician History of Present Illness: s/p port implant and RP mass biopsy. On hep gtt->coumadin, awaiting therapeutic INR, frustrated. - Current Medication List Current Medications: Active Medications Acetaminophen (Tylenol -) 650 mg PO Q6H PRN PRN Reason: FEVER OR PAIN Amlodipine Besylate (Norvasc -) 2.5 mg PO DAILY [facility] Last Admin: 02/23/17 10:07 Dose: 2.5 mg Clindamycin HCl (Cleocin -) 300 mg PO TID [facility] Last Admin: 02/23/17 06:13 Dose: 300 mg Docusate Sodium (Colace -) 300 mg PO HS [facility] Last Admin: 02/22/17 21:23 Dose: 300 mg IV Flush (Gayle-Cath Flush) 10 ml IVPUSH PRN PRN PRN Reason: Protocol Heparin Sodium/Dextrose (Heparin Infusion -) 25,000 units in 500 mls @ 20 mls/ hr IVPB TITR DIANE; 1,000 UNIT/HR PRN Reason: Protocol Last Admin: 02/23/17 10:49 Dose: 1,350 unit/hr, 27 mls/hr Levetiracetam (Keppra -) 500 mg PO BID [facility] Last Admin: 02/23/17 10:07 Dose: 500 mg Nortriptyline HCl (Pamelor -) 10 mg PO HS [facility] Last Admin: 02/22/17 21:24 Dose: 10 mg Oxycodone HCl (Roxicodone -) 5 mg PO Q6H PRN PRN Reason: PAIN Solifenacin (Vesicare -) 10 mg PO DAILY [facility] Last Admin: 02/23/17 10:08 Dose: 10 mg Warfarin Sodium 10 mg/ (Warfarin Sodium 2.5 mg) 12.5 mg PO ONCE ONE Stop: 02/23/17 18:01 - Objective Vital Signs: Vital Signs Temperature 98.2 F 02/23/17 09:57 Pulse Rate 67 02/23/17 09:57 Respiratory Rate 18 02/23/17 09:57 Blood Pressure 115/67 02/23/17 09:57 O2 Sat by Pulse Oximetry (%) 100 02/23/17 09:00 Constitutional: Yes: No Distress, Calm Neck: Yes: Supple Cardiovascular: Yes: Regular Rate and Rhythm, Other ([place] mechanical valve sounds) Respiratory: Yes: Regular, Diminished Gastrointestinal: Yes: Normal Bowel Sounds, Soft Edema: No Labs: CBC, BMP 02/20/17 06:25 02/20/17 06:25 INR, PTT INR 1.71 (0.82-1.09) H 02/23/17 06:00 Problem List - Problems (1) Elective replacement indicated for cardiac pacemaker battery at end of lifespan Code(s): Z45.010 - ENCNTR FOR CHECKING AND TEST OF CARD PACEMAKER PULSE GNRTR (2) Systolic dysfunction without heart failure Code(s): I51.9 - HEART DISEASE, UNSPECIFIED (3) Atrial fibrillation Code(s): I48.91 - UNSPECIFIED ATRIAL FIBRILLATION Qualifiers: Atrial fibrillation type: persistent Qualified Code(s): I48.1 - Persistent atrial fibrillation (4) Retroperitoneal mass Code(s): R19.00 - INTRA-ABD AND PELVIC SWELLING, MASS AND LUMP, UNSP SITE (5) Thoracic aortic aneurysm Code(s): I71.2 - THORACIC AORTIC ANEURYSM, WITHOUT RUPTURE Qualifiers: Presence of rupture: without rupture Qualified Code(s): I71.2 - Thoracic aortic aneurysm, without rupture (6) Wound of left groin Code(s): S31.109A - UNSP OPN WND ABD WALL, UNSP Q W/O PENET PERIT CAV, INIT Qualifiers: Encounter type: subsequent encounter Qualified Code(s): S31.109D - Unspecified open wound of abdominal wall, unspecified quadrant without penetration into peritoneal cavity, subsequent encounter (7) HTN (hypertension) Code(s): I10 - ESSENTIAL (PRIMARY) HYPERTENSION Qualifiers: Hypertension type: essential hypertension Qualified Code(s): I10 - Essential (primary) hypertension (8) History of prosthetic aortic valve Code(s): Z95.2 - PRESENCE OF PROSTHETIC HEART VALVE (9) Lymphoma Code(s): C85.90 - NON-HODGKIN LYMPHOMA, UNSPECIFIED, UNSPECIFIED SITE Qualifiers: Lymphoma type: non-Hodgkin Non-Hodgkin lymphoma type: follicular Follicular lymphoma grade: grade II Lymphoma site: lower extremity Qualified Code(s): C82.15 - Follicular lymphoma grade II, lymph nodes of inguinal region and lower limb (10) Old cerebrovascular accident (CVA) without late effect Code(s): Z86.73 - PRSNL HX OF TIA (TIA), AND CEREB INFRC W/O RESID DEFICITS (11) Pacemaker Code(s): Z95.0 - PRESENCE OF CARDIAC PACEMAKER Assessment/Plan 1. Systolic left ventricular dysfunction with chronic class 0-I [place] Heart Association classification left ventricular failure, compensated/euvolemic. 2. Post re-operative AVR (mechanical aortic valve prosthesis), with evidence of moderate to severe eccentric aortic valve regurgitation 3. Ascending thoracic aortic aneurysm post-surgical repair 4. AV block post permanent pacemaker implantation [employer] device, device at [facility] for elective replacement as outpatient 5. Persistent atrial fibrillation [id number] score of 5 on A/C therapy with Heparin gtt->coumadin with subtherapeutic INR 6. History of cerebrovascular disease 7. HTN 8. 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 Infected groin wound PLAN: 1. Continue Norvasc 2.5 qd 2. Coumadin and continue Heparin drip until INR is therapeutic 2.5-3.5 3. Patient has an appointment with Dr. Alex Beth of [facility] in regards to generator(battery) change on his pacemaker as outpatient 4. Plan for combination chemotherapy after generator change, ideally wait 1 month for pocket to heal 5. Complete antibiotic course, wound care
--- NOTE | 2017-02-23 15:28 | PN ---
Progress Note, Physician Chief Complaint: ASLEEP COMFORTABLE NOTES AND EVENTS REVIEWED - Current Medication List Current Medications: Active Medications Acetaminophen (Tylenol -) 650 mg PO Q6H PRN PRN Reason: FEVER OR PAIN Amlodipine Besylate (Norvasc -) 2.5 mg PO DAILY [facility] Last Admin: 02/23/17 10:07 Dose: 2.5 mg Clindamycin HCl (Cleocin -) 300 mg PO TID [facility] Last Admin: 02/23/17 14:19 Dose: 300 mg Docusate Sodium (Colace -) 300 mg PO HS [facility] Last Admin: 02/22/17 21:23 Dose: 300 mg IV Flush (Gayle-Cath Flush) 10 ml IVPUSH PRN PRN PRN Reason: Protocol Heparin Sodium/Dextrose (Heparin Infusion -) 25,000 units in 500 mls @ 20 mls/ hr IVPB TITR DIANE; 1,000 UNIT/HR PRN Reason: Protocol Last Admin: 02/23/17 10:49 Dose: 1,350 unit/hr, 27 mls/hr Levetiracetam (Keppra -) 500 mg PO BID [facility] Last Admin: 02/23/17 10:07 Dose: 500 mg Nortriptyline HCl (Pamelor -) 10 mg PO HS [facility] Last Admin: 02/22/17 21:24 Dose: 10 mg Oxycodone HCl (Roxicodone -) 5 mg PO Q6H PRN PRN Reason: PAIN Solifenacin (Vesicare -) 10 mg PO DAILY [facility] Last Admin: 02/23/17 10:08 Dose: 10 mg Warfarin Sodium 10 mg/ (Warfarin Sodium 2.5 mg) 12.5 mg PO ONCE ONE Stop: 02/23/17 18:01 - Objective Vital Signs: Vital Signs Temperature 97.8 F 02/23/17 13:45 Pulse Rate 67 02/23/17 13:45 Respiratory Rate 20 02/23/17 13:45 Blood Pressure 131/73 02/23/17 13:45 O2 Sat by Pulse Oximetry (%) 100 02/23/17 09:00 Constitutional: Yes: Mild Distress Eyes: Yes: WNL HENT: Yes: WNL Neck: Yes: WNL Cardiovascular: Yes: Pulse Irregular Respiratory: Yes: WNL Gastrointestinal: Yes: WNL Genitourinary: Yes: WNL Musculoskeletal: Yes: Muscle Weakness Extremities: Yes: WNL Edema: Yes Edema: LLE: Trace, RLE: Trace Peripheral Pulses WNL: Yes Integumentary: Yes: WNL Wound/Incision: Yes: Clean/Dry Neurological: Yes: Pre-Existing Deficit ...Motor Strength: LLE, RLE Psychiatric: Yes: WNL Labs: CBC, BMP 02/20/17 06:25 02/20/17 06:25 INR, PTT INR 1.71 (0.82-1.09) H 02/23/17 06:00 Problem List - Problems (1) Mass Code(s): R22.9 - LOCALIZED SWELLING, MASS AND LUMP, UNSPECIFIED (2) Retroperitoneal mass Code(s): R19.00 - INTRA-ABD AND PELVIC SWELLING, MASS AND LUMP, UNSP SITE (3) HTN (hypertension) Code(s): I10 - ESSENTIAL (PRIMARY) HYPERTENSION Qualifiers: Hypertension type: essential hypertension Qualified Code(s): I10 - Essential (primary) hypertension (4) History of prosthetic aortic valve Code(s): Z95.2 - PRESENCE OF PROSTHETIC HEART VALVE (5) Lymphoma Code(s): C85.90 - NON-HODGKIN LYMPHOMA, UNSPECIFIED, UNSPECIFIED SITE Qualifiers: Lymphoma type: non-Hodgkin Non-Hodgkin lymphoma type: follicular Follicular lymphoma grade: grade II Lymphoma site: lower extremity Qualified Code(s): C82.15 - Follicular lymphoma grade II, lymph nodes of inguinal region and lower limb (6) Old cerebrovascular accident (CVA) without late effect Code(s): Z86.73 - PRSNL HX OF TIA (TIA), AND CEREB INFRC W/O RESID DEFICITS Assessment/Plan INR 1.7 COUMADIN 12.5MG TONIGHT IV HEPARIN WOUND CARE LEFT GROIN ON CLEOMYCIN ID F/U DC PLANNING TOMORROW
[2017-02-23] MEDS ORDERED: WARFARIN NA 10 MG, WARFARIN NA 2.5 MG PO ONE (18:00)
[2017-02-23] MEDS ORDERED: WARFARIN NA 2.5 MG TABLET (FP) ONE (18:18)
[2017-02-23] MEDS ORDERED: WARFARIN NA 10 MG TABLET (FP) ONE (18:19)
[2017-02-23] MEDS ORDERED: PT OWN MED DRAWER 7, Y5N ONE (20:53)
[2017-02-23] MEDS: DOCUSATE SODIUM 100 MG CAPSULE (FP) PO SCH (21:00)
[2017-02-23] MEDS: NORTRIPTYLINE HCL 10 MG CAPSULE PO SCH (21:01)
[2017-02-24] MEDS: CLINDAMYCIN HCL 150 MG CAPSULE (FP) PO SCH ×2 (06:31→13:35)
[2017-02-24] MEDS ORDERED: PT OWN MED DRAWER 7, Y5N ONE (06:39)
[2017-02-24 08:13] LABS: INR 2.02 (0.82-1.09); PROTHROMBIN TIME (PATIENT) 22.8 SEC (9.98-11.88)
[2017-02-24] MEDS: HEPARIN INFUSION - 25,000 UNITS/500 ML INFUS.BAG IVPB SCH (09:39)
[2017-02-24] MEDS: levETIRAcetam 500 MG TABLET (FP) PO SCH (10:22)
[2017-02-24] MEDS: SOLIFENACIN SUCCINATE 5 MG TAB (FP) PO SCH (10:23)
[2017-02-24] MEDS: amLODIPine BESYLATE 2.5 MG TABLET (FP) PO SCH (10:23)
--- NOTE | 2017-02-24 10:49 | PN ---
Progress Note, Physician Chief Complaint: Not in distress History of Present Illness: Patient was seen and examined. Awake and alert. Chart was reviewed Denies chest pain, SOB or palpitations INR therapeutic - Current Medication List Current Medications: Active Medications Acetaminophen (Tylenol -) 650 mg PO Q6H PRN PRN Reason: FEVER OR PAIN Amlodipine Besylate (Norvasc -) 2.5 mg PO DAILY [facility] Last Admin: 02/24/17 10:23 Dose: 2.5 mg Clindamycin HCl (Cleocin -) 300 mg PO TID [facility] Last Admin: 02/24/17 06:31 Dose: 300 mg Docusate Sodium (Colace -) 300 mg PO HS [facility] Last Admin: 02/23/17 21:00 Dose: 300 mg IV Flush (Gayle-Cath Flush) 10 ml IVPUSH PRN PRN PRN Reason: Protocol Heparin Sodium/Dextrose (Heparin Infusion -) 25,000 units in 500 mls @ 20 mls/ hr IVPB TITR DIANE; 1,000 UNIT/HR PRN Reason: Protocol Last Admin: 02/24/17 09:39 Dose: 1,300 unit/hr, 26 mls/hr Levetiracetam (Keppra -) 500 mg PO BID [facility] Last Admin: 02/24/17 10:22 Dose: 500 mg Nortriptyline HCl (Pamelor -) 10 mg PO HS [facility] Last Admin: 02/23/17 21:01 Dose: 10 mg Oxycodone HCl (Roxicodone -) 5 mg PO Q6H PRN PRN Reason: PAIN Solifenacin (Vesicare -) 10 mg PO DAILY [facility] Last Admin: 02/24/17 10:23 Dose: 10 mg - Objective Vital Signs: Vital Signs Temperature 98 F 02/24/17 06:00 Pulse Rate 67 02/24/17 06:00 Respiratory Rate 20 02/24/17 06:00 Blood Pressure 130/71 02/24/17 06:00 O2 Sat by Pulse Oximetry (%) 95 02/23/17 21:00 Neck: Yes: Supple Cardiovascular: Yes: Regular Rate and Rhythm, S1, S2, Other (Mechanical click) Respiratory: Yes: CTA Bilaterally Gastrointestinal: Yes: Normal Bowel Sounds, Soft. No: Tenderness Edema: No Labs: INR, PTT INR 2.02 (0.82-1.09) H 02/24/17 06:00 Problem List - Problems (1) Retroperitoneal mass Code(s): R19.00 - INTRA-ABD AND PELVIC SWELLING, MASS AND LUMP, UNSP SITE (2) HTN (hypertension) Code(s): I10 - ESSENTIAL (PRIMARY) HYPERTENSION Qualifiers: Hypertension type: essential hypertension Qualified Code(s): I10 - Essential (primary) hypertension (3) History of prosthetic aortic valve Code(s): Z95.2 - PRESENCE OF PROSTHETIC HEART VALVE (4) Lymphoma Code(s): C85.90 - NON-HODGKIN LYMPHOMA, UNSPECIFIED, UNSPECIFIED SITE Qualifiers: Lymphoma type: non-Hodgkin Non-Hodgkin lymphoma type: follicular Follicular lymphoma grade: grade II Lymphoma site: lower extremity Qualified Code(s): C82.15 - Follicular lymphoma grade II, lymph nodes of inguinal region and lower limb (5) Old cerebrovascular accident (CVA) without late effect Code(s): Z86.73 - PRSNL HX OF TIA (TIA), AND CEREB INFRC W/O RESID DEFICITS (6) Pacemaker Code(s): Z95.0 - PRESENCE OF CARDIAC PACEMAKER (7) Thoracic aortic aneurysm Code(s): I71.2 - THORACIC AORTIC ANEURYSM, WITHOUT RUPTURE Qualifiers: Presence of rupture: without rupture Qualified Code(s): I71.2 - Thoracic aortic aneurysm, without rupture (8) Atrial fibrillation Code(s): I48.91 - UNSPECIFIED ATRIAL FIBRILLATION Qualifiers: Atrial fibrillation type: persistent Qualified Code(s): I48.1 - Persistent atrial fibrillation Assessment/Plan 1. Systolic left ventricular dysfunction with chronic class 0-I [place] Heart Association classification left ventricular failure, compensated/euvolemic. 2. Post re-operative AVR (mechanical aortic valve prosthesis), with evidence of moderate to severe eccentric aortic valve regurgitation 3. Ascending thoracic aortic aneurysm post-surgical repair 4. AV block post permanent pacemaker implantation [employer] device, device at [facility] for elective replacement as outpatient 5. Persistent atrial fibrillation [id number] score of 5 on A/C therapy with Coumadin/Heparin 6. History of cerebro-vascular disease 7. HTN 8. Abdominal mass post biopsy 9. History of lymphoma 10. Infected groin wound PLAN: 1. Continue Norvasc 2. Continue Coumadin D/C Heparin 3. Patient is to follow up with Dr. Alex Beth as outpatient for generator change 4. Further management as per Oncology service Discharge planning Further plans are to follow Chiki Hutchison MD
--- NOTE | 2017-02-24 12:29 | DS ---
Physical Examination Vital Signs: Vital Signs Temperature 98 F 02/24/17 06:00 Pulse Rate 67 02/24/17 06:00 Respiratory Rate 20 02/24/17 06:00 Blood Pressure 130/71 02/24/17 06:00 O2 Sat by Pulse Oximetry (%) 95 02/23/17 21:00 Constitutional: Yes: No Distress Eyes: Yes: WNL HENT: Yes: WNL Neck: Yes: WNL Cardiovascular: Yes: Pulse Irregular Respiratory: Yes: WNL Gastrointestinal: Yes: WNL Renal/: Yes: WNL Musculoskeletal: Yes: WNL Extremities: Yes: WNL Edema: No Peripheral Pulses WNL: Yes Integumentary: Yes: WNL Wound/Incision: Yes: Clean/Dry Neurological: Yes: Pre-Existing Deficit ...Motor Strength: WNL Psychiatric: Yes: WNL Labs: CBC, BMP 02/20/17 06:25 02/20/17 06:25 Discharge Summary Reason For Visit: MASS Current Active Problems Atrial fibrillation (Acute) Elective replacement indicated for cardiac pacemaker battery at end of lifespan (Acute) Mass (Acute) Retroperitoneal mass (Acute) Systolic dysfunction without heart failure (Acute) Thoracic aortic aneurysm (Acute) Wound of left groin (Acute) Procedures: Principal: ABD BIOPSY/WOUND CARE/ Hospital Course: ADMITTED FOR ABD BIOPSY, WOUND CARE, PATIENT NEEDED HEPARIN IV FOR AC RIDGED TO COUMADIN. DC HOME TODAY SEE DR MONET 2 DAYS Condition: Stable - Instructions Diet, Activity, Other Instructions: SEE DR MONET THURSDAY AT [address] FOR INR CHECK 2 DAYS LOW SALT DIET Referrals: Viridiana Monet MD [Primary Care Provider] - Disposition: VNS/HOME HEALTH CARE - Home Medications Comprehensive Discharge Medication List: Ambulatory Orders Atorvastatin Ca [Lipitor] 40 mg PO HS 01/12/17 Warfarin Sodium [Coumadin] 7.5 mg PO DAILY 01/12/17 Docusate Sodium [Colace -] 100 mg PO TID #90 capsule 01/15/17 Oxycodone HCl/Acetaminophen [Percocet 5-325 mg Tablet] 1 - 2 tab PO Q4H #20 tablet MDD 4 01/15/17 Amlodipine Besylate [Norvasc -] 2.5 mg PO BID tablet 01/21/17 Levetiracetam [Keppra -] 500 mg PO BID tablet 01/21/17 Nortriptyline HCl [Pamelor -] 10 mg PO HS capsule 01/21/17 Solifenacin Succinate [VESIcare] 10 mg NR DAILY 02/11/17 Acetaminophen [Tylenol .Regular Strength -] 650 mg PO Q6H PRN tablet 02/20/17 Clindamycin [Cleocin -] 450 mg PO BID #14 capsule 02/20/17 Gayle-Cath Flush [Gayle-Cath Flush -] 10 ml IVPUSH PRN PRN ml 02/20/17
[2017-02-24 13:59] VITALS: BP 129/74; TEMP 97.7
[2017-02-24] MEDS ORDERED: WARFARIN NA 2.5 MG TABLET (FP) ONE (14:43)
[2017-02-24] MEDS ORDERED: WARFARIN NA 10 MG TABLET (FP) ONE (14:44)
[2017-02-24] MEDS ORDERED: WARFARIN NA 10 MG, WARFARIN NA 2.5 MG PO ONE (14:45)
[2017-02-24] MEDS ORDERED: WARFARIN NA 10 MG TABLET (FP) PO ONE (18:00)
== END 2017-02-24 14:56 | disposition home health service (06) | DRG 863 ==
LOC: JER 11:06 → JERBED 14:52 → J7W 18:30
PROVIDERS: ADMIT Family Medicine; ATTEND Family Medicine
PROC: 0D9W3ZZ Drainage of Peritoneum, Percutaneous Approach (ICD-10-PCS; principal; 2017-02-13)
PROC: 07DC3ZX Extraction of Pelvis Lymphatic, Percutaneous Approach, Diagnostic (ICD-10-PCS; 2017-02-13)
PROC: 0JH63XZ Insertion of Tunneled Vascular Access Device into Chest Subcutaneous Tissue and Fascia, Percutaneous Approach (ICD-10-PCS; 2017-02-17)
DX: T81.4XXA Infection following a procedure, initial encounter (principal); C82.15 Follicular lymphoma grade II, lymph nodes of inguinal region and lower limb; I48.1 Persistent atrial fibrillation; I69.354 Hemiplegia and hemiparesis following cerebral infarction affecting left non-dominant side; R19.00 Intra-abdominal and pelvic swelling, mass and lump, unspecified site; I10 Essential (primary) hypertension; Z95.2 Presence of prosthetic heart valve; Z95.0 Presence of cardiac pacemaker; I71.2 Thoracic aortic aneurysm, without rupture; Y83.9 Surgical procedure, unspecified as the cause of abnormal reaction of the patient, or of later complication, without mention of misadventure at the time of the procedure
CPT/HCPCS: 36415; 36561; 71010-TC; 77001-TC; 77012-TC; 80048; 80053; 83615; 83735; 84550; 85025; 85027; 85610; 85730; 86850; 86900; 86901; 87040; 87070; 87205; 88305-TC; 93005; 93010; 99283-25; C1788; G0480; J1644

== ENCOUNTER 2017-05-12 07:25 | Day surgery (SDC) | payer OTHER ==
[2017-05-12] MEDS ORDERED: SODIUM CHLORIDE 250 ML IV ONE (09:00)
[2017-05-12] MEDS ORDERED: DEXAMETHASONE INJECTION 20 MG, DIPHENHYDRAMINE 50 MG in SODIUM CHLORIDE 100 ML IVPB ONE (10:00)
[2017-05-12] MEDS ORDERED: ACETAMINOPHEN 325 MG TABLET (FP) PO ONE (10:00)
[2017-05-12] MEDS ORDERED: PALONOSETRON HCL 0.25 MG/5 ML VIAL IVPUSH ONE (10:00)
[2017-05-12] MEDS ORDERED: RITUXIMAB IVPB ONE (10:30)
[2017-05-12] MEDS ORDERED: SODIUM CHLORIDE IVPB ONE ×2 (10:30→13:00)
[2017-05-12 11:33] LABS: BASO % 0.8 % (0-2.0); EOS % 4.7 % (0-4.5); HEMATOCRIT 38.8 % (35.4-49); HEMOGLOBIN 12.9 GM/dL (11.7-16.9); LYMPH % 11.1 % (8-40); MCH 31.6 pg (25.7-33.7); MCHC 33.2 g/dl (32.0-35.9); MEAN CELL VOLUME 95.3 fl (80-96); MEAN PLT VOLUME 8.4 fl (7.5-11.1); MONO % 12.6 % (3.8-10.2); NEUT % 70.8 % (42.8-82.8); PLATELET COUNT 216 K/MM3 (134-434); RBC 4.07 M/mm3 (4.00-5.60); RDW 15.8 % (11.9-15.9); WHITE BLOOD COUNT 7.1 K/mm3 (4.0-10.0)
[2017-05-12 12:12] LABS: ALBUMIN 4.1 g/dl (3.4-5.0); ALK PHOS 80 U/L (45-117); ANION GAP 6 (8-16); BILIRUBIN,DIRECT 0.2 mg/dL (0.0-0.2); BILIRUBIN,TOTAL 0.6 mg/dL (0.2-1.0); BLOOD UREA NITROGEN 21 mg/dL (7-18); CALCIUM 8.7 mg/dL (8.5-10.1); CHLORIDE 108 mmol/L (98-107); CO2 26 mmol/L (21-32); CREATININE 0.8 mg/dL (0.7-1.3); GLUCOSE,RANDOM 96 mg/dL (74-106); MAGNESIUM 1.9 mg/dL (1.8-2.4); POTASSIUM 4.2 mmol/L (3.5-5.1); SGOT/AST 22 U/L (15-37); SGPT/ALT 25 U/L (12-78); SODIUM 140 mmol/L (136-145); TOT PROT 7.9 g/dl (6.4-8.2)
[2017-05-12] MEDS ORDERED: CYCLOPHOSPHAMIDE IVPB ONE (13:00)
[2017-05-12] MEDS ORDERED: vinCRIStine SULFATE 1 MG in SODIUM CHLORIDE 50 ML IVPB ONE (13:30)
[2017-05-12] MEDS ORDERED: predniSONE 20 MG TABLET (UD) PO SCH (16:00)
[2017-05-12] MEDS ORDERED: PORTA CATH FLUSH 10 ML IVPUSH ONE (18:44)
[2017-05-12 20:16] VITALS: BP 108/74; PULSE 79; TEMP 98.7
== END 2017-05-12 21:05 | disposition home or self-care (01) ==
LOC: JONCCHEMO 07:25 → J7W 12:11 → JONCCHEMO 21:05
PROVIDERS: ATTEND Internal Medicine Hematology & Oncology
DX: Z51.11 Encounter for antineoplastic chemotherapy (principal); C82.18 Follicular lymphoma grade II, lymph nodes of multiple sites
CPT/HCPCS: 36415; 80053; 80076; 83735; 85025; 96361; 96367; 96375; 96413; 96415; 96417; J1100; J2469; J9070; J9310; J9370

== ENCOUNTER 2017-05-13 07:32 | Day surgery (SDC) | payer OTHER ==
[2017-05-13] MEDS ORDERED: PEGFILGRASTIM 6 MG/0.6 ML DISP.SYRIN SQ ONE (10:00)
[2017-05-13 17:22] VITALS: BP 113/69; PULSE 80; TEMP 98.2
== END 2017-05-13 12:15 | disposition home or self-care (01) ==
LOC: JONCCHEMO 07:32
PROVIDERS: ATTEND Internal Medicine Hematology & Oncology
PROC: 3E013GC Introduction of Other Therapeutic Substance into Subcutaneous Tissue, Percutaneous Approach (ICD-10-PCS; principal; 2017-05-13)
DX: C82.18 Follicular lymphoma grade II, lymph nodes of multiple sites (principal)
CPT/HCPCS: 96372; J2505

== ENCOUNTER 2017-06-02 07:25 | Day surgery (SDC) | payer OTHER ==
[2017-06-02] MEDS ORDERED: SODIUM CHLORIDE 250 ML IV ONE (08:00)
[2017-06-02] MEDS ORDERED: PALONOSETRON HCL 0.25 MG/5 ML VIAL IVPUSH ONE (08:30)
[2017-06-02] MEDS ORDERED: DEXAMETHASONE INJECTION 20 MG, DIPHENHYDRAMINE 50 MG in SODIUM CHLORIDE 100 ML IVPB ONE (08:30)
[2017-06-02] MEDS ORDERED: ACETAMINOPHEN 325 MG TABLET (FP) PO ONE (08:30)
[2017-06-02] MEDS ORDERED: SODIUM CHLORIDE IVPB ONE ×2 (09:00→13:30)
[2017-06-02] MEDS ORDERED: RITUXIMAB IVPB ONE (09:00)
[2017-06-02 10:45] LABS: BASO % 0.3 % (0-2.0); EOS % 0.6 % (0-4.5); HEMATOCRIT 34.7 % (35.4-49); HEMOGLOBIN 11.7 GM/dL (11.7-16.9); LYMPH % 3.5 % (8-40); MCH 32.6 pg (25.7-33.7); MCHC 33.7 g/dl (32.0-35.9); MEAN CELL VOLUME 96.6 fl (80-96); MEAN PLT VOLUME 8.6 fl (7.5-11.1); MONO % 1.2 % (3.8-10.2); NEUT % 94.4 % (42.8-82.8); PLATELET COUNT 290 K/MM3 (134-434); RBC 3.59 M/mm3 (4.00-5.60); RDW 15.9 % (11.9-15.9); WHITE BLOOD COUNT 10.7 K/mm3 (4.0-10.0)
[2017-06-02 11:01] LABS: ALBUMIN 4.1 g/dl (3.4-5.0); ALK PHOS 97 U/L (45-117); ANION GAP 6 (8-16); BILIRUBIN,DIRECT < 0.2 mg/dL (0.0-0.2); BILIRUBIN,TOTAL 0.3 mg/dL (0.2-1.0); BLOOD UREA NITROGEN 20 mg/dL (7-18); CALCIUM 8.6 mg/dL (8.5-10.1); CHLORIDE 108 mmol/L (98-107); CO2 27 mmol/L (21-32); CREATININE 0.9 mg/dL (0.7-1.3); GLUCOSE,RANDOM 118 mg/dL (74-106); POTASSIUM 4.6 mmol/L (3.5-5.1); SGOT/AST 17 U/L (15-37); SGPT/ALT 26 U/L (12-78); SODIUM 141 mmol/L (136-145); TOT PROT 8.1 g/dl (6.4-8.2)
[2017-06-02] MEDS ORDERED: CYCLOPHOSPHAMIDE IVPB ONE (13:30)
[2017-06-02] MEDS ORDERED: vinCRIStine SULFATE 1 MG in SODIUM CHLORIDE 50 ML IVPB ONE (14:00)
[2017-06-02 14:51] VITALS: TEMP 99.2
[2017-06-02] MEDS ORDERED: PORTA CATH FLUSH 10 ML IVPUSH ONE ×2 (14:52→17:41)
[2017-06-02 17:41] VITALS: BP 122/70; PULSE 80
== END 2017-06-02 17:45 | disposition home or self-care (01) ==
LOC: JONCCHEMO 07:25 → J7W 10:24 → JONCCHEMO 17:45
PROVIDERS: ATTEND Internal Medicine Hematology & Oncology
DX: Z51.11 Encounter for antineoplastic chemotherapy (principal); C82.18 Follicular lymphoma grade II, lymph nodes of multiple sites
CPT/HCPCS: 36415; 80053; 80076; 83735; 85025; 96361; 96367; 96375; 96411; 96413; 96415; 96417; J1100; J2469; J7030; J9070; J9310; J9370

== ENCOUNTER 2017-06-23 07:21 | Day surgery (SDC) | payer OTHER ==
[2017-06-23] MEDS ORDERED: SODIUM CHLORIDE 250 ML IV ONE (08:00)
[2017-06-23] MEDS ORDERED: PALONOSETRON HCL 0.25 MG/5 ML VIAL IVPUSH ONE (08:30)
[2017-06-23] MEDS ORDERED: ACETAMINOPHEN 325 MG TABLET (FP) PO ONE (08:30)
[2017-06-23] MEDS ORDERED: DEXAMETHASONE INJECTION 20 MG, DIPHENHYDRAMINE 50 MG in SODIUM CHLORIDE 100 ML IVPB ONE (08:30)
[2017-06-23] MEDS ORDERED: SODIUM CHLORIDE IVPB ONE ×2 (09:00→13:30)
[2017-06-23] MEDS ORDERED: RITUXIMAB IVPB ONE (09:00)
[2017-06-23 10:28] VITALS: PULSE 80
[2017-06-23 10:58] LABS: BASO % 0.5 % (0-2.0); EOS % 1.4 % (0-4.5); HEMATOCRIT 35.1 % (35.4-49); HEMOGLOBIN 11.6 GM/dL (11.7-16.9); LYMPH % 4.5 % (8-40); MCH 32.3 pg (25.7-33.7); MCHC 33.1 g/dl (32.0-35.9); MEAN CELL VOLUME 97.6 fl (80-96); MEAN PLT VOLUME 8.3 fl (7.5-11.1); MONO % 3.4 % (3.8-10.2); NEUT % 90.2 % (42.8-82.8); PLATELET COUNT 259 K/MM3 (134-434); RDW 15.6 % (11.9-15.9); WHITE BLOOD COUNT 9.5 K/mm3 (4.0-10.0)
[2017-06-23 11:13] LABS: INR 2.24 (0.82-1.09); PROTHROMBIN TIME (PATIENT) 25.3 SEC (9.98-11.88)
[2017-06-23 11:21] LABS: ALBUMIN 4.2 g/dl (3.4-5.0); ALK PHOS 101 U/L (45-117); ANION GAP 10 (8-16); BILIRUBIN,TOTAL 0.4 mg/dL (0.2-1.0); BLOOD UREA NITROGEN 21 mg/dL (7-18); CALCIUM 9.7 mg/dL (8.5-10.1); CHLORIDE 104 mmol/L (98-107); CO2 30 mmol/L (21-32); CREATININE 0.9 mg/dL (0.7-1.3); GLUCOSE,RANDOM 116 mg/dL (74-106); POTASSIUM 4.5 mmol/L (3.5-5.1); SGOT/AST 20 U/L (15-37); SGPT/ALT 23 U/L (12-78); SODIUM 144 mmol/L (136-145); TOT PROT 8.2 g/dl (6.4-8.2)
[2017-06-23] MEDS ORDERED: CYCLOPHOSPHAMIDE IVPB ONE (13:30)
[2017-06-23 13:56] LABS: BILIRUBIN,DIRECT 0.2 mg/dL (0.0-0.2); MAGNESIUM 2.1 mg/dL (1.8-2.4)
[2017-06-23] MEDS ORDERED: vinCRIStine SULFATE 1 MG in SODIUM CHLORIDE 50 ML IVPB ONE (14:00)
[2017-06-23] MEDS ORDERED: PORTA CATH FLUSH 10 ML IVPUSH ONE ×2 (14:45→17:49)
[2017-06-23 14:46] VITALS: TEMP 98.2
[2017-06-23 17:49] VITALS: BP 124/67
== END 2017-06-23 22:23 | disposition home or self-care (01) ==
LOC: JONCCHEMO 07:21 → J7W 11:32 → JONCCHEMO 22:23
PROVIDERS: ATTEND Internal Medicine Hematology & Oncology
DX: Z51.11 Encounter for antineoplastic chemotherapy (principal); C82.18 Follicular lymphoma grade II, lymph nodes of multiple sites
CPT/HCPCS: 36415; 80053; 80076; 83735; 85025; 85610; 96361; 96375; 96411; 96413; 96415; 96417; J1100; J2469; J7030; J9070; J9310; J9370

== ENCOUNTER 2017-06-24 07:08 | Day surgery (SDC) | payer OTHER ==
[2017-06-24] MEDS ORDERED: PEGFILGRASTIM 6 MG/0.6 ML DISP.SYRIN SQ ONE (08:00)
[2017-06-24 14:00] VITALS: BP 124/78; PULSE 80; TEMP 99
== END 2017-06-24 13:00 | disposition home or self-care (01) ==
LOC: JONCCHEMO 07:08 → J7W 12:39 → JONCCHEMO 13:00
PROVIDERS: ATTEND Internal Medicine Hematology & Oncology
PROC: 3E013GC Introduction of Other Therapeutic Substance into Subcutaneous Tissue, Percutaneous Approach (ICD-10-PCS; principal; 2017-06-24)
DX: C82.18 Follicular lymphoma grade II, lymph nodes of multiple sites (principal)
CPT/HCPCS: 96372; J2505

== ENCOUNTER 2017-07-14 07:19 | Inpatient (IN) | payer OTHER ==
[2017-07-14] MEDS ORDERED: SODIUM CHLORIDE 250 ML IV ONE (09:00)
[2017-07-14] MEDS ORDERED: PALONOSETRON HCL 0.25 MG/5 ML VIAL IVPUSH ONE (10:00)
[2017-07-14] MEDS ORDERED: DEXAMETHASONE INJECTION 20 MG, DIPHENHYDRAMINE 50 MG in SODIUM CHLORIDE 100 ML IVPB ONE (10:00)
[2017-07-14] MEDS ORDERED: ACETAMINOPHEN 325 MG TABLET (FP) PO ONE (10:00)
[2017-07-14] MEDS ORDERED: RITUXIMAB IVPB ONE (10:30)
[2017-07-14] MEDS ORDERED: SODIUM CHLORIDE IVPB ONE ×2 (10:30→14:00)
[2017-07-14 11:35] LABS: ALBUMIN 3.6 g/dl (3.4-5.0); ALK PHOS 84 U/L (45-117); BASO % 0.8 % (0-2.0); BILIRUBIN,DIRECT < 0.2 mg/dL (0.0-0.2); BILIRUBIN,TOTAL 0.3 mg/dL (0.2-1.0); EOS % 2.7 % (0-4.5); HEMATOCRIT 21.4 % (35.4-49); HEMOGLOBIN 7.1 GM/dL (11.7-16.9); LYMPH % 6.2 % (8-40); MCHC 33.1 g/dl (32.0-35.9); MEAN CELL VOLUME 93.5 fl (80-96); MEAN PLT VOLUME 8.2 fl (7.5-11.1); MONO % 9.9 % (3.8-10.2); NEUT % 80.4 % (42.8-82.8); PLATELET COUNT 267 K/MM3 (134-434); RBC 2.29 M/mm3 (4.00-5.60); RDW 16.4 % (11.9-15.9); SGOT/AST 15 U/L (15-37); SGPT/ALT 19 U/L (12-78); TOT PROT 6.8 g/dl (6.4-8.2); WHITE BLOOD COUNT 8.1 K/mm3 (4.0-10.0)
[2017-07-14 12:08] LABS: ALBUMIN 3.6 g/dl (3.4-5.0); ANION GAP 4 (8-16); BILIRUBIN,TOTAL 0.3 mg/dL (0.2-1.0); BLOOD UREA NITROGEN 25 mg/dL (7-18); CALCIUM 8.3 mg/dL (8.5-10.1); CHLORIDE 113 mmol/L (98-107); CO2 27 mmol/L (21-32); CREATININE 0.9 mg/dL (0.7-1.3); GLUCOSE,RANDOM 95 mg/dL (74-106); LDH 264 U/L (87-241); POTASSIUM 4.5 mmol/L (3.5-5.1); SGOT/AST 15 U/L (15-37); SGPT/ALT 18 U/L (12-78); SODIUM 144 mmol/L (136-145); TOT PROT 6.8 g/dl (6.4-8.2)
[2017-07-14 12:09] LABS: ALK PHOS 84 U/L (45-117)
[2017-07-14 12:45] LABS: BASO % 0.7 % (0-2.0); EOS % 2.9 % (0-4.5); HEMATOCRIT 20.6 % (35.4-49); LYMPH % 7.3 % (8-40); MCH 30.7 pg (25.7-33.7); MCHC 33.1 g/dl (32.0-35.9); MEAN PLT VOLUME 7.7 fl (7.5-11.1); MONO % 9.3 % (3.8-10.2); NEUT % 79.8 % (42.8-82.8); PLATELET COUNT 250 K/MM3 (134-434); RBC 2.21 M/mm3 (4.00-5.60); RDW 16.1 % (11.9-15.9); WHITE BLOOD COUNT 7.1 K/mm3 (4.0-10.0)
[2017-07-14 12:55] LABS: HEMOGLOBIN 6.8 GM/dL (11.7-16.9)
[2017-07-14] MEDS ORDERED: FUROSEMIDE 40 MG/4 ML INJECTABLE VIAL IVPB ONE (13:09)
--- NOTE | 2017-07-14 13:30 | HP ---
Admitting History and Physical - Primary Care Physician PCP: Viridiana Monet - Admission History of Present Illness: Patient with multiple cardiac co-morbidities. CAD, PPM, Afib, MVR on coumadin. Diagnosis of follicualr lymphoma with high grade transformation in 01/2017. S/p 3 cycles of R-CVP PET CT on 06/29/2017: with Partial response in the retro-peritoneal area and complete response in the inguinal area. Today, He is seen for C4 of R-CVP. Pre-chemo labs: CBC x2 with hgb of 6-7. Normal Hgb is 12 for him, last was at his baseline three weeks ago. Patient denied any bleeding. on further questioning, ?had dark stool last week? complaint with coumadin. 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 Cardiovascular: Yes: AFIB, HTN, Other (atrial valve prosthesis) - Smoking History Smoking history: Former smoker Have you smoked in the past 12 months: No Aproximately how many cigarettes per day: 8 If you are a former smoker, when did you quit?: 30 YRS - Alcohol/Substance Use Hx Alcohol Use: Yes (SOCIAL) Home Medications - Allergies Allergies/Adverse Reactions: Allergies Allergy/AdvReac Type Severity Reaction Status Date / Time No Known Drug Allergies Allergy Verified 02/11/17 11:18 - Home Medications Home Medications: Ambulatory Orders Atorvastatin Ca [Lipitor] 40 mg PO HS 01/12/17 Warfarin Sodium [Coumadin] 7.5 mg PO DAILY 01/12/17 Docusate Sodium [Colace -] 100 mg PO TID #90 capsule 01/15/17 Oxycodone HCl/Acetaminophen [Percocet 5-325 mg Tablet] 1 - 2 tab PO Q4H #20 tablet MDD 4 01/15/17 Amlodipine Besylate [Norvasc -] 2.5 mg PO BID tablet 01/21/17 Nortriptyline HCl [Pamelor -] 10 mg PO HS capsule 01/21/17 levETIRAcetam [Keppra -] 500 mg PO BID tablet 01/21/17 Solifenacin Succinate [VESIcare] 10 mg NR DAILY 02/11/17 Acetaminophen [Tylenol .Regular Strength -] 650 mg PO Q6H PRN tablet 02/20/17 Clindamycin [Cleocin -] 450 mg PO BID #14 capsule 02/20/17 Gayle-Cath Flush [Gayle-Cath Flush -] 10 ml IVPUSH PRN PRN ml 02/20/17 Amlodipine Besylate [Norvasc -] 2.5 mg PO DAILY tablet 02/24/17 Clindamycin [Cleocin -] 300 mg PO TID #6 capsule 02/24/17 Docusate Sodium [Colace -] 300 mg PO HS capsule 02/24/17 Nortriptyline HCl [Pamelor -] 10 mg PO HS capsule 02/24/17 Solifenacin Succinate [Vesicare -] 10 mg PO DAILY tab 02/24/17 levETIRAcetam [Keppra -] 500 mg PO BID tablet 02/24/17 Physical Examination Vital Signs: Vital Signs Temperature 98.4 F 07/14/17 11:00 Pulse Rate 80 07/14/17 11:00 Respiratory Rate 16 07/14/17 11:00 Blood Pressure 138/74 07/14/17 11:00 O2 Sat by Pulse Oximetry (%) Constitutional: Yes: Well Nourished, No Distress, Calm Eyes: Yes: Conjunctiva Clear, EOM Intact HENT: Yes: Atraumatic, Normocephalic Neck: Yes: Supple, Trachea Midline Cardiovascular: Yes: Regular Rate and Rhythm Respiratory: Yes: Regular, CTA Bilaterally Gastrointestinal: Yes: Normal Bowel Sounds, Soft, Abdomen, Obese Extremities: Yes: WNL Labs: CBC, BMP 07/14/17 12:20 07/14/17 11:00 Problem List - Problems (1) Atrial fibrillation Code(s): I48.91 - UNSPECIFIED ATRIAL FIBRILLATION Qualifiers: Atrial fibrillation type: persistent Qualified Code(s): I48.1 - Persistent atrial fibrillation (2) HTN (hypertension) Code(s): I10 - ESSENTIAL (PRIMARY) HYPERTENSION Qualifiers: Hypertension type: essential hypertension Qualified Code(s): I10 - Essential (primary) hypertension (3) History of prosthetic aortic valve Code(s): Z95.2 - PRESENCE OF PROSTHETIC HEART VALVE (4) Lymphoma Code(s): C85.90 - NON-HODGKIN LYMPHOMA, UNSPECIFIED, UNSPECIFIED SITE Qualifiers: Lymphoma type: non-Hodgkin Non-Hodgkin lymphoma type: follicular Follicular lymphoma grade: grade II Lymphoma site: lower extremity Qualified Code(s): C82.15 - Follicular lymphoma grade II, lymph nodes of inguinal region and lower limb Assessment/Plan Acute Anemia: admit For 2U PRBCS Lasix in between for FOBT x3 for GI c/s CT a/p non-con to r.o hematoma [id number]: on coumadin INR pending depending INR, AC to be decided cardiology c/s for management and also in case if procedures planned. h.o Follicular Lymphoma: diagnosed 01/2017, chemo started 03/2017 ( delayed due to his PPM exchnage and postop recovery) s/p 3 cycles of R-CVP. PETCT 06/2017 with FL in the retroperitoneal and CR in the inguinal regions was here for C4, but on hold due to the pre-chemo CBC. anticipate giving chemo prior to discharge (tentatively). detailed discussion with the pt about the present situation as he was not willing to stay , presently agreed. d/w RN aware
[2017-07-14] MEDS ORDERED: ACETAMINOPHEN 325 MG TABLET (FP) PO PRN (13:41)
[2017-07-14 14:00] LABS: PROTHROMBIN TIME (PATIENT) 49.5 SEC (9.7-13.0)
[2017-07-14] MEDS ORDERED: CYCLOPHOSPHAMIDE IVPB ONE (14:00)
[2017-07-14 14:04] LABS: INR 4.38 (0.82-1.09)
[2017-07-14] MEDS ORDERED: vinCRIStine SULFATE 1 MG in SODIUM CHLORIDE 50 ML IVPB ONE (14:30)
--- NOTE | 2017-07-14 15:45 | PN ---
Progress Note, Physician Chief Complaint: sent from oncology for acute drop in hemoglobin to 6 - Current Medication List Current Medications: Active Medications Acetaminophen (Tylenol -) 650 mg PO Q6H PRN PRN Reason: FEVER Amlodipine Besylate (Norvasc -) 2.5 mg PO BID [facility] Atorvastatin Calcium (Lipitor -) 40 mg PO HS [facility] Docusate Sodium (Colace -) 100 mg PO TID [facility] Levetiracetam (Keppra -) 500 mg PO BID [facility] Non-Formulary Medication (Solifenacin Succinate [Vesicare]) 10 mg NR DAILY [facility] Nortriptyline HCl (Pamelor -) 10 mg PO HS [facility] Solifenacin (Vesicare -) 10 mg PO DAILY [facility] - Objective Vital Signs: Vital Signs Temperature 98.4 F 07/14/17 11:00 Pulse Rate 80 07/14/17 11:00 Respiratory Rate 16 07/14/17 11:00 Blood Pressure 138/74 07/14/17 11:00 O2 Sat by Pulse Oximetry (%) Constitutional: Yes: Mild Distress Eyes: Yes: WNL HENT: Yes: WNL Neck: Yes: WNL Cardiovascular: Yes: Pulse Irregular Respiratory: Yes: WNL Gastrointestinal: Yes: WNL Genitourinary: Yes: WNL Musculoskeletal: Yes: Muscle Weakness Extremities: Yes: WNL Integumentary: Yes: Venous Stasis Changes Wound/Incision: Yes: Dressing Dry and Intact Neurological: Yes: Pre-Existing Deficit, Weakness ...Motor Strength: LLE, RLE Psychiatric: Yes: Other Labs: CBC, BMP 07/14/17 12:20 07/14/17 11:00 INR, PTT INR 4.38 (0.82-1.09) H* D 07/14/17 13:30 Problem List - Problems (1) Acute blood loss anemia Code(s): D62 - ACUTE POSTHEMORRHAGIC ANEMIA (2) Anticoagulation excessive Code(s): ITW0029 - (3) History of melena Code(s): Z87.19 - PERSONAL HISTORY OF OTHER DISEASES OF THE DIGESTIVE SYSTEM (4) Atrial fibrillation Code(s): I48.91 - UNSPECIFIED ATRIAL FIBRILLATION Qualifiers: Atrial fibrillation type: persistent Qualified Code(s): I48.1 - Persistent atrial fibrillation (5) HTN (hypertension) Code(s): I10 - ESSENTIAL (PRIMARY) HYPERTENSION Qualifiers: Hypertension type: essential hypertension Qualified Code(s): I10 - Essential (primary) hypertension (6) History of prosthetic aortic valve Code(s): Z95.2 - PRESENCE OF PROSTHETIC HEART VALVE (7) Lymphoma Code(s): C85.90 - NON-HODGKIN LYMPHOMA, UNSPECIFIED, UNSPECIFIED SITE Qualifiers: Lymphoma type: non-Hodgkin Non-Hodgkin lymphoma type: follicular Follicular lymphoma grade: grade II Lymphoma site: lower extremity Qualified Code(s): C82.15 - Follicular lymphoma grade II, lymph nodes of inguinal region and lower limb (8) Old cerebrovascular accident (CVA) without late effect Code(s): Z86.73 - PRSNL HX OF TIA (TIA), AND CEREB INFRC W/O RESID DEFICITS (9) Pacemaker Code(s): Z95.0 - PRESENCE OF CARDIAC PACEMAKER Assessment/Plan transfuse prbc as per oncology gi eval occult stool check cardio eval oob to chair
--- NOTE | 2017-07-14 16:27 | CON.GI ---
Consult Consult Specialty:: GI Reason for Consultation:: GI bleed - History of Present Illness History of Present Illness: Chart reviewed. Oncology note noted. A 67M with advanced cardiovascular disease , Mechanical heart valve, undergoing chemotherapy noted to be anemic on routine follow up. Hg 6 g/dl today, 12 g/dl 3 weeks ago. Pt reports 2 episodes of melena 2 weeks ago. No hematochezia, hematemeis, dyspepsia, abdominal pain, diarrhea. No fever, jaundice, changes in stool caliper, or bowel habits. Reports having EGD and colonoscopy 3-4 years go. Doesn't recall having significant findings at that time. On Coumadin with target INR between 2-3. INR 4.5 on admission. 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 Cardio/Vascular: Yes: AFIB, HTN, Other (atrial valve prosthesis) - Alcohol/Substance Use Hx Alcohol Use: Yes (SOCIAL) - Smoking History Smoking history: Former smoker Have you smoked in the past 12 months: No Aproximately how many cigarettes per day: 8 If you are a former smoker, when did you quit?: 30 YRS Home Medications - Allergies Allergies/Adverse Reactions: Allergies Allergy/AdvReac Type Severity Reaction Status Date / Time No Known Drug Allergies Allergy Verified 02/11/17 11:18 - Home Medications Home Medications: Ambulatory Orders Atorvastatin Ca [Lipitor] 40 mg PO HS 01/12/17 Warfarin Sodium [Coumadin] 7.5 mg PO DAILY 01/12/17 Docusate Sodium [Colace -] 100 mg PO TID #90 capsule 01/15/17 Oxycodone HCl/Acetaminophen [Percocet 5-325 mg Tablet] 1 - 2 tab PO Q4H #20 tablet MDD 4 01/15/17 Amlodipine Besylate [Norvasc -] 2.5 mg PO BID tablet 01/21/17 Nortriptyline HCl [Pamelor -] 10 mg PO HS capsule 01/21/17 levETIRAcetam [Keppra -] 500 mg PO BID tablet 01/21/17 Solifenacin Succinate [VESIcare] 10 mg NR DAILY 02/11/17 Acetaminophen [Tylenol .Regular Strength -] 650 mg PO Q6H PRN tablet 02/20/17 Clindamycin [Cleocin -] 450 mg PO BID #14 capsule 02/20/17 Gayle-Cath Flush [Gayle-Cath Flush -] 10 ml IVPUSH PRN PRN ml 02/20/17 Amlodipine Besylate [Norvasc -] 2.5 mg PO DAILY tablet 02/24/17 Clindamycin [Cleocin -] 300 mg PO TID #6 capsule 02/24/17 Docusate Sodium [Colace -] 300 mg PO HS capsule 02/24/17 Nortriptyline HCl [Pamelor -] 10 mg PO HS capsule 02/24/17 Solifenacin Succinate [Vesicare -] 10 mg PO DAILY tab 02/24/17 levETIRAcetam [Keppra -] 500 mg PO BID tablet 02/24/17 Family Disease History - Family Disease History Family History: Unremarkable (non-contrivutory) Review of Systems Findings/Remarks: as per HPI, H&P Physical Exam-GI Vital Signs: Vital Signs Temperature 98.4 F 07/14/17 11:00 Pulse Rate 80 07/14/17 11:00 Respiratory Rate 16 07/14/17 11:00 Blood Pressure 138/74 07/14/17 11:00 O2 Sat by Pulse Oximetry (%) Constitutional: Yes: Well Nourished, No Distress, Calm, Pallor Eyes: Yes: Conjunctiva Clear HENT: Yes: Atraumatic Neck: Yes: Supple Cardiovascular: Yes: Regular Rate and Rhythm Respiratory: Yes: Regular Gastrointestinal Inspection: No: Distention ...Auscultate: Yes: Normoactive Bowel Sounds ...Palpate: Yes: Soft, Splenomegaly. No: Firm/Rigid, Guarding, Tenderness, Tenderness, Epigastium, Tenderness, Rebound ...Rectal Exam: Yes: Deferred Neurological: Yes: Alert, Oriented Labs: CBC, BMP 07/14/17 12:20 07/14/17 11:00 INR, PTT INR 4.38 (0.82-1.09) H* D 07/14/17 13:30 Laboratory Last Values WBC 7.1 K/mm3 (4.0-10.0) 07/14/17 12:20 RBC 2.21 M/mm3 (4.00-5.60) L 07/14/17 12:20 Hgb 6.8 GM/dL (11.7-16.9) L* 07/14/17 12:20 Hct 20.6 % (35.4-49) L 07/14/17 12:20 MCV 93.0 fl (80-96) 07/14/17 12:20 MCH 30.7 pg (25.7-33.7) 07/14/17 12:20 MCHC 33.1 g/dl (32.0-35.9) 07/14/17 12:20 RDW 16.1 % (11.9-15.9) H 07/14/17 12:20 Plt Count 250 K/MM3 (134-434) 07/14/17 12:20 MPV 7.7 fl (7.5-11.1) 07/14/17 12:20 Neutrophils % 79.8 % (42.8-82.8) 07/14/17 12:20 Lymphocytes % 7.3 % (8-40) L 07/14/17 12:20 Monocytes % 9.3 % (3.8-10.2) 07/14/17 12:20 Eosinophils % 2.9 % (0-4.5) 07/14/17 12:20 Basophils % 0.7 % (0-2.0) 07/14/17 12:20 Retic Count 3.11 % (0.5-1.5) H 07/14/17 13:30 PT with INR 49.50 SEC (9.7-13.0) H 07/14/17 13:30 INR 4.38 (0.82-1.09) H* D 07/14/17 13:30 Sodium 144 mmol/L (136-145) 07/14/17 11:00 Potassium 4.5 mmol/L (3.5-5.1) 07/14/17 11:00 Chloride 113 mmol/L (98-107) H 07/14/17 11:00 Carbon Dioxide 27 mmol/L (21-32) 07/14/17 11:00 Anion Gap 4 (8-16) L 07/14/17 11:00 BUN 25 mg/dL (7-18) H 07/14/17 11:00 Creatinine 0.9 mg/dL (0.7-1.3) 07/14/17 11:00 Creat Clearance w eGFR > 60 (>60) 07/14/17 11:00 Random Glucose 95 mg/dL (74-106) 07/14/17 11:00 Calcium 8.3 mg/dL (8.5-10.1) L 07/14/17 11:00 Magnesium 2.0 mg/dL (1.8-2.4) 07/14/17 11:00 Ferritin 24.673 ng/ml (16.4-293.9) 07/14/17 13:30 Total Bilirubin 0.3 mg/dL (0.2-1.0) D 07/14/17 11:00 Direct Bilirubin < 0.2 mg/dL (0.0-0.2) 07/14/17 11:00 AST 15 U/L (15-37) D 07/14/17 11:00 ALT 18 U/L (12-78) D 07/14/17 11:00 Alkaline Phosphatase 84 U/L (45-117) 07/14/17 11:00 LD Total 264 U/L (87-241) H D 07/14/17 11:00 Total Protein 6.8 g/dl (6.4-8.2) 07/14/17 11:00 Albumin 3.6 g/dl (3.4-5.0) 07/14/17 11:00 Blood Type A POSITIVE 07/14/17 12:20 Antibody Screen Negative 07/14/17 12:20 Crossmatch See Detail 07/14/17 12:20 Problem List - Problems (1) Acute blood loss anemia Code(s): D62 - ACUTE POSTHEMORRHAGIC ANEMIA (2) Anticoagulation excessive Code(s): SPP6993 - (3) History of melena Code(s): Z87.19 - PERSONAL HISTORY OF OTHER DISEASES OF THE DIGESTIVE SYSTEM Assessment/Plan No obvious, active, ongoing GI bleeding at this time. Agree with PRBC. FFP and Vit K as per hematology/cardiology. Plan EGD and colonoscopy to r/o intraluminal lesions, inflammatory states resulting in bleeding. Need to have INR under 2, ideally under ?1.5 (mechanical valve). Add PPI bid. Close monitoring for signs of active GI bleeding. Discussed with the patient in details.
[2017-07-14] MEDS ORDERED: PEG 3350/NA SULF BICARB CL/KCL 4000 ML SOLN.RECON PO ONE (17:45)
[2017-07-14] MEDS ORDERED: BISACODYL 5 MG TABLET.DR (FP) PO ONE (17:45)
[2017-07-14] MEDS ORDERED: FUROSEMIDE 40 MG/4 ML INJECTABLE VIAL ONE (18:05)
[2017-07-14] MEDS: levETIRAcetam 500 MG TABLET (FP) PO SCH (21:58)
[2017-07-14] MEDS: amLODIPine BESYLATE 2.5 MG TABLET (FP) PO SCH (21:58)
[2017-07-14] MEDS: NORTRIPTYLINE HCL 10 MG CAPSULE PO SCH (21:59)
[2017-07-14] MEDS: DOCUSATE SODIUM 100 MG CAPSULE (FP) PO SCH ×2 (21:59)
[2017-07-14] MEDS: ATORVASTATIN CA 40 MG TABLET (FP) PO SCH (21:59)
[2017-07-15] MEDS: DOCUSATE SODIUM 100 MG CAPSULE (FP) PO SCH ×3 (05:14→23:24)
[2017-07-15 07:50] LABS: EOS % 3.1 % (0-4.5); HEMATOCRIT 26.2 % (35.4-49); HEMOGLOBIN 8.8 GM/dL (11.7-16.9); LYMPH % 7.5 % (8-40); MCH 30.3 pg (25.7-33.7); MCHC 33.7 g/dl (32.0-35.9); MEAN CELL VOLUME 89.7 fl (80-96); MEAN PLT VOLUME 8.5 fl (7.5-11.1); MONO % 8.2 % (3.8-10.2); NEUT % 80.2 % (42.8-82.8); PLATELET COUNT 258 K/MM3 (134-434); RBC 2.92 M/mm3 (4.00-5.60); RDW 17.8 % (11.9-15.9); WHITE BLOOD COUNT 8.1 K/mm3 (4.0-10.0)
[2017-07-15 08:23] LABS: INR 2.72 (0.82-1.09); PROTHROMBIN TIME (PATIENT) 30.7 SEC (9.7-13.0)
[2017-07-15] MEDS ORDERED: PT OWN MED DRAWER 7, Y5N ONE ×2 (09:43→21:11)
[2017-07-15] MEDS: amLODIPine BESYLATE 2.5 MG TABLET (FP) PO SCH ×2 (09:52→23:25)
[2017-07-15] MEDS: levETIRAcetam 500 MG TABLET (FP) PO SCH ×2 (09:52→23:24)
[2017-07-15] MEDS: SOLIFENACIN SUCCINATE 5 MG TAB (FP) PO SCH (09:52)
[2017-07-15] MEDS ORDERED: SOLIFENACIN SUCCINATE 10 MG NR SCH (10:00)
--- NOTE | 2017-07-15 11:51 | PN ---
Progress Note, Physician Chief Complaint: h.o Follicular Lymphoma: diagnosed 01/2017, chemo started 03/2017 ( delayed due to his PPM exchnage and postop recovery) s/p 3 cycles of R-CVP. PETCT 06/2017 with OK in the retroperitoneal and CR in the inguinal regions History of Present Illness: Stool Guaiac negative seen by Hematology/oncology [facility] this admission seen by GI- Dr Veras for postive stool OB plan for endoscopy and colonoscopy once INR<1.7 and cardiology clearance is obtained. Dr Villagran-Cardiology consulted. - Current Medication List Current Medications: Active Medications Acetaminophen (Tylenol -) 650 mg PO Q6H PRN PRN Reason: FEVER Amlodipine Besylate (Norvasc -) 2.5 mg PO BID [facility] Last Admin: 07/15/17 09:52 Dose: 2.5 mg Atorvastatin Calcium (Lipitor -) 40 mg PO HS [facility] Last Admin: 07/14/17 21:59 Dose: 40 mg Docusate Sodium (Colace -) 100 mg PO TID [facility] Last Admin: 07/15/17 05:14 Dose: Not Given Levetiracetam (Keppra -) 500 mg PO BID [facility] Last Admin: 07/15/17 09:52 Dose: 500 mg Nortriptyline HCl (Pamelor -) 10 mg PO HS [facility] Last Admin: 07/14/17 21:59 Dose: 10 mg Pantoprazole Sodium (Protonix Iv) 40 mg IVPUSH BID [facility] Solifenacin (Vesicare -) 10 mg PO DAILY [facility] Last Admin: 07/15/17 09:52 Dose: 10 mg - Objective Vital Signs: Vital Signs Temperature 98.4 F 07/15/17 10:00 Pulse Rate 80 07/15/17 10:00 Respiratory Rate 20 07/15/17 10:00 Blood Pressure 126/76 07/15/17 10:00 O2 Sat by Pulse Oximetry (%) 98 07/15/17 09:00 Constitutional: Yes: Well Nourished, No Distress, Calm Cardiovascular: Yes: Pulse Irregular Respiratory: Yes: Regular Gastrointestinal: Yes: Normal Bowel Sounds, Soft Musculoskeletal: Yes: WNL Extremities: Yes: WNL Edema: No Peripheral Pulses WNL: Yes Neurological: Yes: Alert, Oriented Psychiatric: Yes: Alert, Oriented Labs: CBC, BMP 07/15/17 06:00 INR, PTT INR 2.72 (0.82-1.09) H D 07/15/17 06:00 Problem List - Problems (1) GI bleeding Assessment/Plan: -Stool OB positive -monitor H/H -Seen by GI -EGD and Colonoscopy once INR below 1.7 Code(s): K92.2 - GASTROINTESTINAL HEMORRHAGE, UNSPECIFIED (2) Lymphoma Assessment/Plan: -Seen by Oncology/hematology Code(s): C85.90 - NON-HODGKIN LYMPHOMA, UNSPECIFIED, UNSPECIFIED SITE Qualifiers: Lymphoma type: non-Hodgkin Non-Hodgkin lymphoma type: follicular Follicular lymphoma grade: grade II Lymphoma site: lower extremity Qualified Code(s): C82.15 - Follicular lymphoma grade II, lymph nodes of inguinal region and lower limb (3) Atrial fibrillation Assessment/Plan: -Initiate warfarin once hemodynamically stable after EGD and colonoscopy Code(s): I48.91 - UNSPECIFIED ATRIAL FIBRILLATION Qualifiers: Atrial fibrillation type: chronic Qualified Code(s): I48.2 - Chronic atrial fibrillation (4) Acute blood loss anemia Code(s): D62 - ACUTE POSTHEMORRHAGIC ANEMIA Assessment/Plan see problem list
[2017-07-15] MEDS: PANTOPRAZOLE SODIUM 40 MG VIAL IVPUSH SCH ×2 (11:57→23:25)
--- NOTE | 2017-07-15 12:02 | PN ---
Progress Note, Physician History of Present Illness: No events overnight. INR 2.7. Awaiting for cardiology input. CT findings noted. - Current Medication List Current Medications: Active Medications Acetaminophen (Tylenol -) 650 mg PO Q6H PRN PRN Reason: FEVER Amlodipine Besylate (Norvasc -) 2.5 mg PO BID [facility] Last Admin: 07/15/17 09:52 Dose: 2.5 mg Atorvastatin Calcium (Lipitor -) 40 mg PO HS [facility] Last Admin: 07/14/17 21:59 Dose: 40 mg Docusate Sodium (Colace -) 100 mg PO TID [facility] Last Admin: 07/15/17 05:14 Dose: Not Given Levetiracetam (Keppra -) 500 mg PO BID [facility] Last Admin: 07/15/17 09:52 Dose: 500 mg Nortriptyline HCl (Pamelor -) 10 mg PO HS [facility] Last Admin: 07/14/17 21:59 Dose: 10 mg Pantoprazole Sodium (Protonix Iv) 40 mg IVPUSH BID [facility] Solifenacin (Vesicare -) 10 mg PO DAILY [facility] Last Admin: 07/15/17 09:52 Dose: 10 mg - Objective Vital Signs: Vital Signs Temperature 98.4 F 07/15/17 10:00 Pulse Rate 80 07/15/17 10:00 Respiratory Rate 20 07/15/17 10:00 Blood Pressure 126/76 07/15/17 10:00 O2 Sat by Pulse Oximetry (%) 98 07/15/17 09:00 Constitutional: Yes: Well Nourished, No Distress, Calm Eyes: Yes: Conjunctiva Clear HENT: Yes: Atraumatic Neck: Yes: Supple Cardiovascular: Yes: Regular Rate and Rhythm Respiratory: Yes: Regular Gastrointestinal: Yes: Normal Bowel Sounds, Soft. No: Melena, Rectal Bleeding, Tenderness, Vomiting Neurological: Yes: Alert, Oriented Labs: CBC, BMP 07/15/17 06:00 INR, PTT INR 2.72 (0.82-1.09) H D 07/15/17 06:00 Laboratory Last Values WBC 8.1 K/mm3 (4.0-10.0) 07/15/17 06:00 RBC 2.92 M/mm3 (4.00-5.60) L D 07/15/17 06:00 Hgb 8.8 GM/dL (11.7-16.9) L D 07/15/17 06:00 Hct 26.2 % (35.4-49) L D 07/15/17 06:00 MCV 89.7 fl (80-96) 07/15/17 06:00 MCH 30.3 pg (25.7-33.7) 07/15/17 06:00 MCHC 33.7 g/dl (32.0-35.9) 07/15/17 06:00 RDW 17.8 % (11.9-15.9) H D 07/15/17 06:00 Plt Count 258 K/MM3 (134-434) 07/15/17 06:00 MPV 8.5 fl (7.5-11.1) D 07/15/17 06:00 Neutrophils % 80.2 % (42.8-82.8) 07/15/17 06:00 Lymphocytes % 7.5 % (8-40) L 07/15/17 06:00 Monocytes % 8.2 % (3.8-10.2) 07/15/17 06:00 Eosinophils % 3.1 % (0-4.5) 07/15/17 06:00 Basophils % 1.0 % (0-2.0) 07/15/17 06:00 Retic Count 3.11 % (0.5-1.5) H 07/14/17 13:30 PT with INR 30.70 SEC (9.7-13.0) H 07/15/17 06:00 INR 2.72 (0.82-1.09) H D 07/15/17 06:00 Sodium 144 mmol/L (136-145) 07/14/17 11:00 Potassium 4.5 mmol/L (3.5-5.1) 07/14/17 11:00 Chloride 113 mmol/L (98-107) H 07/14/17 11:00 Carbon Dioxide 27 mmol/L (21-32) 07/14/17 11:00 Anion Gap 4 (8-16) L 07/14/17 11:00 BUN 25 mg/dL (7-18) H 07/14/17 11:00 Creatinine 0.9 mg/dL (0.7-1.3) 07/14/17 11:00 Creat Clearance w eGFR > 60 (>60) 07/14/17 11:00 Random Glucose 95 mg/dL (74-106) 07/14/17 11:00 Calcium 8.3 mg/dL (8.5-10.1) L 07/14/17 11:00 Magnesium 2.0 mg/dL (1.8-2.4) 07/14/17 11:00 Ferritin 24.673 ng/ml (16.4-293.9) 07/14/17 13:30 Total Bilirubin 0.3 mg/dL (0.2-1.0) D 07/14/17 11:00 Direct Bilirubin < 0.2 mg/dL (0.0-0.2) 07/14/17 11:00 AST 15 U/L (15-37) D 07/14/17 11:00 ALT 18 U/L (12-78) D 07/14/17 11:00 Alkaline Phosphatase 84 U/L (45-117) 07/14/17 11:00 LD Total 264 U/L (87-241) H D 07/14/17 11:00 Total Protein 6.8 g/dl (6.4-8.2) 07/14/17 11:00 Albumin 3.6 g/dl (3.4-5.0) 07/14/17 11:00 Stool Occult Blood Positive (NEGATIVE) 07/15/17 06:50 Blood Type A POSITIVE 07/14/17 12:20 Antibody Screen Negative 07/14/17 12:20 Crossmatch See Detail 07/14/17 12:20 Problem List - Problems (1) Acute blood loss anemia Code(s): D62 - ACUTE POSTHEMORRHAGIC ANEMIA (2) Anticoagulation excessive Code(s): GCA6507 - (3) History of melena Code(s): Z87.19 - PERSONAL HISTORY OF OTHER DISEASES OF THE DIGESTIVE SYSTEM Assessment/Plan Significant, acute anemia. Rule out gastrointestinal blood loss. EGD and colonoscopy on hold due to elevated INR. Awaiting for cardiology input to bring INR under 2, ideally 1.51.7. May need FFP Prior to the procedures tomorrow, if cleared by cardiology. Would avoid vitamin K as it would be difficult to bring INR in the therapeutic range after the procedure. Discussed with patient in detail. He agrees with the plan. Clear liquid diet today. Possible bowel prep tonight for EGD and colonoscopy tomorrow
[2017-07-15 12:53] LABS: ANION GAP 11 (8-16); BLOOD UREA NITROGEN 23 mg/dL (7-18); CHLORIDE 110 mmol/L (98-107); CO2 25 mmol/L (21-32); CREATININE 0.9 mg/dL (0.7-1.3); GLUCOSE,RANDOM 89 mg/dL (74-106); POTASSIUM 3.6 mmol/L (3.5-5.1); SODIUM 146 mmol/L (136-145)
[2017-07-15 12:54] LABS: ALBUMIN 3.9 g/dl (3.4-5.0); BILIRUBIN,TOTAL 0.7 mg/dL (0.2-1.0); CALCIUM 8.6 mg/dL (8.5-10.1); TOT PROT 7.1 g/dl (6.4-8.2)
[2017-07-15 12:55] LABS: ALK PHOS 88 U/L (45-117); SGOT/AST 20 U/L (15-37); SGPT/ALT 19 U/L (12-78)
--- NOTE | 2017-07-15 13:16 | CON.CARD ---
Consult Consult Specialty:: Cardiology Referred by:: Dr. 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) post recent generator change, follicular lymphoma undergoing chemotherapy admitted for anemia, melena in context of supratherapeutic INR 4.4 without abd pain, hematochezia, chest pain, dyspnea, near or true syncope, palpitations, orthopnea, PND or LE edema. [place] Alexis Brand [place] [facility] [place] 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 Cardio/Vascular: Yes: AFIB, HTN, Other (atrial valve prosthesis) - Alcohol/Substance Use Hx Alcohol Use: Yes (SOCIAL) - Smoking History Smoking history: Former smoker Have you smoked in the past 12 months: No Aproximately how many cigarettes per day: 8 If you are a former smoker, when did you quit?: 30 YRS Home Medications - Allergies Allergies/Adverse Reactions: Allergies Allergy/AdvReac Type Severity Reaction Status Date / Time No Known Drug Allergies Allergy Verified 02/11/17 11:18 - Home Medications Home Medications: Ambulatory Orders Atorvastatin Ca [Lipitor] 40 mg PO HS 01/12/17 Warfarin Sodium [Coumadin] 7.5 mg PO DAILY 01/12/17 Docusate Sodium [Colace -] 100 mg PO TID #90 capsule 01/15/17 Oxycodone HCl/Acetaminophen [Percocet 5-325 mg Tablet] 1 - 2 tab PO Q4H #20 tablet MDD 4 01/15/17 Amlodipine Besylate [Norvasc -] 2.5 mg PO BID tablet 01/21/17 Nortriptyline HCl [Pamelor -] 10 mg PO HS capsule 01/21/17 levETIRAcetam [Keppra -] 500 mg PO BID tablet 01/21/17 Solifenacin Succinate [VESIcare] 10 mg NR DAILY 02/11/17 Acetaminophen [Tylenol .Regular Strength -] 650 mg PO Q6H PRN tablet 02/20/17 Clindamycin [Cleocin -] 450 mg PO BID #14 capsule 02/20/17 Gayle-Cath Flush [Gayle-Cath Flush -] 10 ml IVPUSH PRN PRN ml 02/20/17 Amlodipine Besylate [Norvasc -] 2.5 mg PO DAILY tablet 02/24/17 Clindamycin [Cleocin -] 300 mg PO TID #6 capsule 02/24/17 Docusate Sodium [Colace -] 300 mg PO HS capsule 02/24/17 Nortriptyline HCl [Pamelor -] 10 mg PO HS capsule 02/24/17 Solifenacin Succinate [Vesicare -] 10 mg PO DAILY tab 02/24/17 levETIRAcetam [Keppra -] 500 mg PO BID tablet 02/24/17 Review of Systems - Review of Systems Gastrointestinal: reports: Melena Vital Signs: Vital Signs Temperature 98.4 F 07/15/17 10:00 Pulse Rate 80 07/15/17 10:00 Respiratory Rate 20 07/15/17 10:00 Blood Pressure 126/76 07/15/17 10:00 O2 Sat by Pulse Oximetry (%) 98 07/15/17 09:00 Constitutional: Yes: No Distress, Calm Neck: Yes: Supple Respiratory: Yes: Regular, CTA Bilaterally Gastrointestinal: Yes: Soft, Hypoactive Bowel Sounds Cardiovascular: Yes: Regular Rate and Rhythm JVD: No Carotid Bruit: No Heart Sounds: Yes: S1, S2 Murmur: Yes: Systolic Murmur, Grade 1 Edema: No - Other Data Labs, Other Data: CBC, BMP 07/15/17 06:00 07/15/17 06:00 INR, PTT INR 2.72 (0.82-1.09) H D 07/15/17 06:00 Afib V-paced @ 80 Ejection Fraction %: LVEF > or = 40 % Problem List - Problems (1) Pre-procedural cardiovascular examination Code(s): Z01.810 - ENCOUNTER FOR PREPROCEDURAL CARDIOVASCULAR EXAMINATION (2) Acute blood loss anemia Code(s): D62 - ACUTE POSTHEMORRHAGIC ANEMIA (3) Anticoagulation excessive Code(s): OCM3178 - (4) History of melena Code(s): Z87.19 - PERSONAL HISTORY OF OTHER DISEASES OF THE DIGESTIVE SYSTEM (5) Atrial fibrillation Code(s): I48.91 - UNSPECIFIED ATRIAL FIBRILLATION Qualifiers: Atrial fibrillation type: persistent Qualified Code(s): I48.1 - Persistent atrial fibrillation (6) HTN (hypertension) Code(s): I10 - ESSENTIAL (PRIMARY) HYPERTENSION Qualifiers: Hypertension type: essential hypertension Qualified Code(s): I10 - Essential (primary) hypertension (7) History of prosthetic aortic valve Code(s): Z95.2 - PRESENCE OF PROSTHETIC HEART VALVE (8) Lymphoma Code(s): C85.90 - NON-HODGKIN LYMPHOMA, UNSPECIFIED, UNSPECIFIED SITE Qualifiers: Lymphoma type: non-Hodgkin Non-Hodgkin lymphoma type: follicular Follicular lymphoma grade: grade II Lymphoma site: lower extremity Qualified Code(s): C82.15 - Follicular lymphoma grade II, lymph nodes of inguinal region and lower limb (9) Old cerebrovascular accident (CVA) without late effect Code(s): Z86.73 - PRSNL HX OF TIA (TIA), AND CEREB INFRC W/O RESID DEFICITS (10) Pacemaker Code(s): Z95.0 - PRESENCE OF CARDIAC PACEMAKER (11) Thoracic aortic aneurysm Code(s): I71.2 - THORACIC AORTIC ANEURYSM, WITHOUT RUPTURE Qualifiers: Presence of rupture: without rupture Qualified Code(s): I71.2 - Thoracic aortic aneurysm, without rupture Assessment/Plan 07/2016 Echo: Normal LV and RV size and fxn, severe LAE, mild EKTA, mild AR, MR, TR, normal prosthetic gradients, PPM wire in RV 1. Pre-procedure cardiovascular exam prior to EGD/colonoscopy for eval of anemia , r/o GI source in setting of supratherapeutic INR 2. LV diastolic dysfunction euvolemic 2. Post re-operative AVR (#25 [employer] Trifecta bioprosthetic aortic valve prosthesis) 3. Ascending thoracic aortic aneurysm post-reop repair 4. AV block post permanent pacemaker implantation [employer] device, post recent generator change 5. Persistent atrial fibrillation [id number] score of 5 on A/C therapy with supratherapeutic INR 6. History of septic embolic Rt MCA stroke 7. HTN 8. Follicular lymphoma undergoing chemotherapy s/p 3 cycles of R-CVP awaiting 4th. PLAN: 1. Patient may proceed with EGD and colonoscopy from CV-standpoint once INR has decreased to acceptable level 1.5-1.7, would allow natural drift as opposed to reversal as patient is not actively bleeding and can wait for endoscopy 2. Continue Norvasc 2.5 bid, Lipitor 40 qd, hold Lasix 40 qd for now 3. Monitor Hgb post transfusion and maintain Hgb>8.0 4. Reinitiation of anticoagulation once hemostasis achieved and Hgb stable per GI 5. Patient to follow-[place]. [place] [facility] [facility] [place] 6. Thank you for consultative opportunity
--- NOTE | 2017-07-15 13:52 | EKG ---
Test Reason : Blood Pressure : / mmHG Vent. Rate : 080 BPM Atrial Rate : 072 BPM P-R Int : 000 ms QRS Dur : 186 ms QT Int : 466 ms P-R-T Axes : 000 021 088 degrees QTc Int : 537 ms Ventricular-paced rhythm ABNORMAL ECG WHEN COMPARED WITH ECG OF 11-FEB-2017 14:13, VENT. RATE HAS INCREASED BY 13 BPM Confirmed by NURIA MELENDEZ MD ([id number]) on 07/15/2017 1:52:36 PM Referred By: LAILA STEPHENSON DR Confirmed By:NURIA MELENDEZ MD
--- NOTE | 2017-07-15 15:29 | PN ---
Progress Note (short form) - Note Progress Note: Pt seen and examined. Upset about the hospital stay d.w the plan. He denies any complains Constitutional: Yes: Well Nourished, No Distress, Calm Eyes: Yes: Conjunctiva Clear, EOM Intact HENT: Yes: Atraumatic, Normocephalic Neck: Yes: Supple, Trachea Midline Cardiovascular: Yes: Regular Rate and Rhythm Respiratory: Yes: Regular, CTA Bilaterally Gastrointestinal: Yes: Normal Bowel Sounds, Soft, Abdomen, Obese Extremities: Yes: WNL Temp Pulse Resp BP Pulse Ox 97.9 F 80 20 124/64 98 07/15/17 13:30 07/15/17 13:30 07/15/17 13:30 07/15/17 13:30 07/15/17 09:00 CBC, BMP 07/15/17 06:00 07/15/17 06:00 Current Medications Generic Name Dose Route Start Last Admin Trade Name Freq PRN Reason Stop Dose Admin Acetaminophen 650 mg 07/14/17 13:41 Tylenol - PO Q6H PRN FEVER Amlodipine Besylate 2.5 mg 07/14/17 22:00 07/15/17 09:52 Norvasc - PO 2.5 mg BID DIANE Administration Atorvastatin Calcium 40 mg 07/14/17 22:00 07/14/17 21:59 Lipitor - PO 40 mg HS DIANE Administration Docusate Sodium 100 mg 07/14/17 14:00 07/15/17 05:14 Colace - PO Not Given TID DIANE Levetiracetam 500 mg 07/14/17 22:00 07/15/17 09:52 Keppra - PO 500 mg BID DIANE Administration Nortriptyline HCl 10 mg 07/14/17 22:00 07/14/17 21:59 Pamelor - PO 10 mg HS DIANE Administration Pantoprazole Sodium 40 mg 07/15/17 12:00 07/15/17 11:57 Protonix Iv IVPUSH 40 mg BID DIANE Administration Solifenacin 10 mg 07/15/17 10:00 07/15/17 09:52 Vesicare - PO 10 mg DAILY DIANE Administration Acute Anemia: now stable s/p 2U PRBC appreciate all the consultants involved. CT findings noted (interestingly, the duodenal finding was not PET avid in the recent PET scan which was done less than three weeks ago) for procedures once INR drifts [id number]: Cardiology input noted will cw with the rest of his home meds holding coumadin h.o Follicular Lymphoma: diagnosed 01/2017, chemo started 03/2017 ( delayed due to his PPM exchnage and postop recovery) s/p 3 cycles of R-CVP. PETCT 06/2017 with MS in the retroperitoneal and CR in the inguinal regions anticipate giving chemo prior to discharge (tentatively). explained the pt in great detail about the plan, CT findings and also the importance of him staying in the hospital until w/u is complete and ensure stable hgb. Problem List - Problems (1) Atrial fibrillation Code(s): I48.91 - UNSPECIFIED ATRIAL FIBRILLATION Qualifiers: Atrial fibrillation type: persistent Qualified Code(s): I48.1 - Persistent atrial fibrillation (2) HTN (hypertension) Code(s): I10 - ESSENTIAL (PRIMARY) HYPERTENSION Qualifiers: Hypertension type: essential hypertension Qualified Code(s): I10 - Essential (primary) hypertension (3) History of prosthetic aortic valve Code(s): Z95.2 - PRESENCE OF PROSTHETIC HEART VALVE (4) Lymphoma Code(s): C85.90 - NON-HODGKIN LYMPHOMA, UNSPECIFIED, UNSPECIFIED SITE Qualifiers: Lymphoma type: non-Hodgkin Non-Hodgkin lymphoma type: follicular Follicular lymphoma grade: grade II Lymphoma site: lower extremity Qualified Code(s): C82.15 - Follicular lymphoma grade II, lymph nodes of inguinal region and lower limb
--- NOTE | 2017-07-15 17:27 | PN ---
Progress Note (short form) - Note Progress Note: cardiology input noted and appreciated. CBC, INR ordered for tomorrow. Continue clear liquid diet. Problem List - Problems (1) Acute blood loss anemia Code(s): D62 - ACUTE POSTHEMORRHAGIC ANEMIA (2) Anticoagulation excessive Code(s): [id number] - (3) History of melena Code(s): Z87.19 - PERSONAL HISTORY OF OTHER DISEASES OF THE DIGESTIVE SYSTEM
[2017-07-15] MEDS: ATORVASTATIN CA 40 MG TABLET (FP) PO SCH (23:24)
[2017-07-15] MEDS: NORTRIPTYLINE HCL 10 MG CAPSULE PO SCH (23:25)
[2017-07-16] MEDS: DOCUSATE SODIUM 100 MG CAPSULE (FP) PO SCH ×3 (06:24→22:56)
[2017-07-16 07:44] LABS: BASO % 0.9 % (0-2.0); EOS % 5.1 % (0-4.5); HEMATOCRIT 26.7 % (35.4-49); HEMOGLOBIN 8.9 GM/dL (11.7-16.9); LYMPH % 6.7 % (8-40); MCH 29.8 pg (25.7-33.7); MCHC 33.2 g/dl (32.0-35.9); MEAN CELL VOLUME 89.8 fl (80-96); MEAN PLT VOLUME 8.7 fl (7.5-11.1); MONO % 8.9 % (3.8-10.2); NEUT % 78.4 % (42.8-82.8); PLATELET COUNT 255 K/MM3 (134-434); RBC 2.97 M/mm3 (4.00-5.60); RDW 17.6 % (11.9-15.9); WHITE BLOOD COUNT 7.5 K/mm3 (4.0-10.0)
[2017-07-16 07:53] LABS: INR 1.87 (0.82-1.09); PROTHROMBIN TIME (PATIENT) 21.1 SEC (9.7-13.0)
[2017-07-16 08:03] LABS: ALBUMIN 3.6 g/dl (3.4-5.0); ALK PHOS 93 U/L (45-117); ANION GAP 9 (8-16); BILIRUBIN,TOTAL 0.6 mg/dL (0.2-1.0); BLOOD UREA NITROGEN 17 mg/dL (7-18); CALCIUM 8.7 mg/dL (8.5-10.1); CHLORIDE 107 mmol/L (98-107); CO2 26 mmol/L (21-32); CREATININE 0.7 mg/dL (0.7-1.3); GLUCOSE,RANDOM 87 mg/dL (74-106); POTASSIUM 4.1 mmol/L (3.5-5.1); SGOT/AST 15 U/L (15-37); SGPT/ALT 17 U/L (12-78); SODIUM 142 mmol/L (136-145); TOT PROT 6.8 g/dl (6.4-8.2)
--- NOTE | 2017-07-16 09:31 | PN ---
Progress Note (short form) - Note Progress Note: INR 1.87 today. Colonoscopy and EGD tomorrow. Prep ordered. Problem List - Problems (1) Acute blood loss anemia Code(s): D62 - ACUTE POSTHEMORRHAGIC ANEMIA (2) Anticoagulation excessive Code(s): [id number] - (3) History of melena Code(s): Z87.19 - PERSONAL HISTORY OF OTHER DISEASES OF THE DIGESTIVE SYSTEM
--- NOTE | 2017-07-16 09:51 | PN ---
Progress Note (short form) - Note Progress Note: Pt seen and examined. INR 1.8 Constitutional: Yes: Well Nourished, No Distress, Calm Eyes: Yes: Conjunctiva Clear, EOM Intact HENT: Yes: Atraumatic, Normocephalic Neck: Yes: Supple, Trachea Midline Cardiovascular: Yes: Regular Rate and Rhythm Respiratory: Yes: Regular, CTA Bilaterally Gastrointestinal: Yes: Normal Bowel Sounds, Soft, Abdomen, Obese Extremities: Yes: WNL Last Vital Signs Temp Pulse Resp BP Pulse Ox 97.9 F 80 20 147/65 98 07/16/17 05:14 07/16/17 05:14 07/16/17 05:14 07/16/17 05:14 07/15/17 21:00 CBC, BMP 07/16/17 06:00 07/16/17 06:00 Current Medications Generic Name Dose Route Start Last Admin Trade Name Freq PRN Reason Stop Dose Admin Acetaminophen 650 mg 07/14/17 13:41 Tylenol - PO Q6H PRN FEVER Amlodipine Besylate 2.5 mg 07/14/17 22:00 07/15/17 23:25 Norvasc - PO 2.5 mg BID DIANE Administration Atorvastatin Calcium 40 mg 07/14/17 22:00 07/15/17 23:24 Lipitor - PO 40 mg HS DIANE Administration Bisacodyl 20 mg 07/16/17 15:00 Dulcolax - PO 07/16/17 15:01 ONCE ONE Docusate Sodium 100 mg 07/14/17 14:00 07/16/17 06:24 Colace - PO 100 mg TID DIANE Administration Levetiracetam 500 mg 07/14/17 22:00 07/15/17 23:24 Keppra - PO 500 mg BID DIANE Administration Nortriptyline HCl 10 mg 07/14/17 22:00 07/15/17 23:25 Pamelor - PO 10 mg HS DIANE Administration Pantoprazole Sodium 40 mg 07/15/17 12:00 07/15/17 23:25 Protonix Iv IVPUSH 40 mg BID DIANE Administration Polyethylene Glycol/Electrolytes 4,000 ml 07/16/17 18:00 Golytely Solution - PO 07/16/17 18:01 ONCE ONE Solifenacin 10 mg 07/15/17 10:00 07/15/17 09:52 Vesicare - PO 10 mg DAILY DIANE Administration HG stable For GI w/u tomorrow. Lymphoma, likely will give chemo prior to d/c cardiology input appreciate Problem List - Problems (1) Atrial fibrillation Code(s): I48.91 - UNSPECIFIED ATRIAL FIBRILLATION Qualifiers: Atrial fibrillation type: chronic Qualified Code(s): I48.2 - Chronic atrial fibrillation (2) HTN (hypertension) Code(s): I10 - ESSENTIAL (PRIMARY) HYPERTENSION Qualifiers: Hypertension type: essential hypertension Qualified Code(s): I10 - Essential (primary) hypertension (3) History of prosthetic aortic valve Code(s): Z95.2 - PRESENCE OF PROSTHETIC HEART VALVE (4) Lymphoma Code(s): C85.90 - NON-HODGKIN LYMPHOMA, UNSPECIFIED, UNSPECIFIED SITE Qualifiers: Lymphoma type: non-Hodgkin Non-Hodgkin lymphoma type: follicular Follicular lymphoma grade: grade II Lymphoma site: lower extremity Qualified Code(s): C82.15 - Follicular lymphoma grade II, lymph nodes of inguinal region and lower limb
[2017-07-16] MEDS ORDERED: PT OWN MED DRAWER 7, Y5N ONE (10:14)
[2017-07-16] MEDS: SOLIFENACIN SUCCINATE 5 MG TAB (FP) PO SCH (10:16)
[2017-07-16] MEDS: amLODIPine BESYLATE 2.5 MG TABLET (FP) PO SCH ×2 (10:16→22:56)
[2017-07-16] MEDS: PANTOPRAZOLE SODIUM 40 MG VIAL IVPUSH SCH ×2 (10:16→22:57)
[2017-07-16] MEDS: levETIRAcetam 500 MG TABLET (FP) PO SCH ×2 (10:16→22:57)
--- NOTE | 2017-07-16 10:44 | PN ---
Progress Note, Physician History of Present Illness: No recurrent melena. Hgb stable post transfusion. - Current Medication List Current Medications: Active Medications Acetaminophen (Tylenol -) 650 mg PO Q6H PRN PRN Reason: FEVER Amlodipine Besylate (Norvasc -) 2.5 mg PO BID [facility] Last Admin: 07/16/17 10:16 Dose: 2.5 mg Atorvastatin Calcium (Lipitor -) 40 mg PO HS [facility] Last Admin: 07/15/17 23:24 Dose: 40 mg Bisacodyl (Dulcolax -) 20 mg PO ONCE ONE Stop: 07/16/17 15:01 Docusate Sodium (Colace -) 100 mg PO TID [facility] Last Admin: 07/16/17 06:24 Dose: 100 mg Levetiracetam (Keppra -) 500 mg PO BID [facility] Last Admin: 07/16/17 10:16 Dose: 500 mg Nortriptyline HCl (Pamelor -) 10 mg PO [facility] Last Admin: 07/15/17 23:25 Dose: 10 mg Pantoprazole Sodium (Protonix Iv) 40 mg IVPUSH BID [facility] Last Admin: 07/16/17 10:16 Dose: 40 mg Polyethylene Glycol/Electrolytes (Golytely Solution -) 4,000 ml PO ONCE ONE Stop: 07/16/17 18:01 Solifenacin (Vesicare -) 10 mg PO DAILY [facility] Last Admin: 07/16/17 10:16 Dose: 10 mg - Objective Vital Signs: Vital Signs Temperature 98 F 07/16/17 10:29 Pulse Rate 83 07/16/17 10:29 Respiratory Rate 18 07/16/17 10:29 Blood Pressure 104/76 07/16/17 10:29 O2 Sat by Pulse Oximetry (%) 98 07/16/17 09:00 Constitutional: Yes: No Distress, Calm Neck: Yes: Supple Cardiovascular: Yes: Regular Rate and Rhythm Respiratory: Yes: Regular, Diminished Gastrointestinal: Yes: Normal Bowel Sounds, Soft Edema: No Labs: CBC, BMP 07/16/17 06:00 07/16/17 06:00 INR, PTT INR 1.87 (0.82-1.09) H D 07/16/17 06:00 Problem List - Problems (1) Pre-procedural cardiovascular examination Code(s): Z01.810 - ENCOUNTER FOR PREPROCEDURAL CARDIOVASCULAR EXAMINATION (2) Acute blood loss anemia Code(s): D62 - ACUTE POSTHEMORRHAGIC ANEMIA (3) Anticoagulation excessive Code(s): [id number] - (4) History of melena Code(s): Z87.19 - PERSONAL HISTORY OF OTHER DISEASES OF THE DIGESTIVE SYSTEM (5) Atrial fibrillation Code(s): I48.91 - UNSPECIFIED ATRIAL FIBRILLATION Qualifiers: Atrial fibrillation type: persistent Qualified Code(s): I48.1 - Persistent atrial fibrillation (6) HTN (hypertension) Code(s): I10 - ESSENTIAL (PRIMARY) HYPERTENSION Qualifiers: Hypertension type: essential hypertension Qualified Code(s): I10 - Essential (primary) hypertension (7) History of prosthetic aortic valve Code(s): Z95.2 - PRESENCE OF PROSTHETIC HEART VALVE (8) Lymphoma Code(s): C85.90 - NON-HODGKIN LYMPHOMA, UNSPECIFIED, UNSPECIFIED SITE Qualifiers: Lymphoma type: non-Hodgkin Non-Hodgkin lymphoma type: follicular Follicular lymphoma grade: grade II Lymphoma site: lower extremity Qualified Code(s): C82.15 - Follicular lymphoma grade II, lymph nodes of inguinal region and lower limb (9) Old cerebrovascular accident (CVA) without late effect Code(s): Z86.73 - PRSNL HX OF TIA (TIA), AND CEREB INFRC W/O RESID DEFICITS (10) Pacemaker Code(s): Z95.0 - PRESENCE OF CARDIAC PACEMAKER (11) Thoracic aortic aneurysm Code(s): I71.2 - THORACIC AORTIC ANEURYSM, WITHOUT RUPTURE Qualifiers: Presence of rupture: without rupture Qualified Code(s): I71.2 - Thoracic aortic aneurysm, without rupture Assessment/Plan 07/2016 Echo: Normal LV and RV size and fxn, severe LAE, mild EKTA, mild AR, MR, TR, normal prosthetic gradients, PPM wire in RV 1. Pre-procedure cardiovascular exam prior to EGD/colonoscopy for eval of anemia , r/o GI source in setting of supratherapeutic INR 2. LV diastolic dysfunction euvolemic 2. Post re-operative AVR (#25 [employer] Trifecta bioprosthetic aortic valve prosthesis) 3. Ascending thoracic aortic aneurysm post-reop repair 4. AV block post permanent pacemaker implantation [employer] device, post recent generator change 5. Persistent atrial fibrillation [id number] score of 5 on A/C therapy with supratherapeutic INR 6. History of septic embolic Rt MCA stroke 7. HTN 8. Follicular lymphoma undergoing chemotherapy s/p 3 cycles of R-CVP awaiting 4th. PLAN: 1. Patient may proceed with EGD and colonoscopy from CV-standpoint once INR has decreased to acceptable level 1.5-1.7, would allow natural drift as opposed to reversal as patient is not actively bleeding and can wait for endoscopy. Abx prophylaxis for endocarditis is not recommended for GI tract procedures 2. Continue Norvasc 2.5 bid, Lipitor 40 qd, hold Lasix 40 qd for now 3. Monitor Hgb post transfusion and maintain Hgb>8.0 4. Reinitiation of anticoagulation once hemostasis achieved and Hgb stable per GI 5. Patient to follow-up with Dr. Beck of [facility] [place] as outpatient
--- NOTE | 2017-07-16 11:05 | PN ---
Progress Note, Physician Chief Complaint: h.o Follicular Lymphoma: diagnosed 01/2017, chemo started 03/2017 ( delayed due to his PPM exchnage and postop recovery) s/p 3 cycles of R-CVP. PETCT 06/2017 with [place] in the retroperitoneal and CR in the inguinal regions History of Present Illness: Stool Guaiac negative seen by Hematology/oncology [facility] this admission seen by GI- Dr Veras for postive stool OB plan for endoscopy and colonoscopy in AM cardiology clearance is obtained. Dr Villagran-Cardiology consulted. - Current Medication List Current Medications: Active Medications Acetaminophen (Tylenol -) 650 mg PO Q6H PRN PRN Reason: FEVER Amlodipine Besylate (Norvasc -) 2.5 mg PO BID [facility] Last Admin: 07/16/17 10:16 Dose: 2.5 mg Atorvastatin Calcium (Lipitor -) 40 mg PO [facility] Last Admin: 07/15/17 23:24 Dose: 40 mg Bisacodyl (Dulcolax -) 20 mg PO ONCE ONE Stop: 07/16/17 15:01 Docusate Sodium (Colace -) 100 mg PO TID [facility] Last Admin: 07/16/17 06:24 Dose: 100 mg Levetiracetam (Keppra -) 500 mg PO BID [facility] Last Admin: 07/16/17 10:16 Dose: 500 mg Nortriptyline HCl (Pamelor -) 10 mg PO [facility] Last Admin: 07/15/17 23:25 Dose: 10 mg Pantoprazole Sodium (Protonix Iv) 40 mg IVPUSH BID [facility] Last Admin: 07/16/17 10:16 Dose: 40 mg Polyethylene Glycol/Electrolytes (Golytely Solution -) 4,000 ml PO ONCE ONE Stop: 07/16/17 18:01 Solifenacin (Vesicare -) 10 mg PO DAILY [facility] Last Admin: 07/16/17 10:16 Dose: 10 mg - Objective Vital Signs: Vital Signs Temperature 98 F 07/16/17 10:29 Pulse Rate 83 07/16/17 10:29 Respiratory Rate 18 07/16/17 10:29 Blood Pressure 104/76 07/16/17 10:29 O2 Sat by Pulse Oximetry (%) 98 07/16/17 09:00 Constitutional: Yes: Well Nourished, No Distress, Calm Cardiovascular: Yes: Regular Rate and Rhythm Respiratory: Yes: Regular Gastrointestinal: Yes: Normal Bowel Sounds, Soft Labs: CBC, BMP 07/16/17 06:00 07/16/17 06:00 INR, PTT INR 1.87 (0.82-1.09) H D 07/16/17 06:00 Problem List - Problems (1) GI bleeding Assessment/Plan: -Stool OB positive -monitor H/H -Seen by GI -EGD and Colonoscopy in AM Code(s): K92.2 - GASTROINTESTINAL HEMORRHAGE, UNSPECIFIED (2) Lymphoma Assessment/Plan: -Seen by Oncology/hematology -Chemo before D/C? Code(s): C85.90 - NON-HODGKIN LYMPHOMA, UNSPECIFIED, UNSPECIFIED SITE Qualifiers: Lymphoma type: non-Hodgkin Non-Hodgkin lymphoma type: follicular Follicular lymphoma grade: grade II Lymphoma site: lower extremity Qualified Code(s): C82.15 - Follicular lymphoma grade II, lymph nodes of inguinal region and lower limb (3) Atrial fibrillation Assessment/Plan: -Initiate warfarin once hemodynamically stable after EGD and colonoscopy Code(s): I48.91 - UNSPECIFIED ATRIAL FIBRILLATION Qualifiers: Atrial fibrillation type: chronic Qualified Code(s): I48.2 - Chronic atrial fibrillation (4) Acute blood loss anemia Code(s): D62 - ACUTE POSTHEMORRHAGIC ANEMIA Assessment/Plan see problem list
[2017-07-16] MEDS ORDERED: BISACODYL 5 MG TABLET.DR (FP) PO ONE (15:00)
[2017-07-16] MEDS ORDERED: PEG 3350/NA SULF BICARB CL/KCL 4000 ML SOLN.RECON PO ONE (18:00)
[2017-07-16] MEDS: ATORVASTATIN CA 40 MG TABLET (FP) PO SCH (22:56)
[2017-07-16] MEDS: NORTRIPTYLINE HCL 10 MG CAPSULE PO SCH (22:57)
[2017-07-17] MEDS: DOCUSATE SODIUM 100 MG CAPSULE (FP) PO SCH ×3 (05:29→22:38)
[2017-07-17 07:54] LABS: BASO % 0.8 % (0-2.0); HEMATOCRIT 25.4 % (35.4-49); HEMOGLOBIN 8.7 GM/dL (11.7-16.9); LYMPH % 7.7 % (8-40); MCH 30.2 pg (25.7-33.7); MCHC 34.2 g/dl (32.0-35.9); MEAN CELL VOLUME 88.5 fl (80-96); MEAN PLT VOLUME 8.4 fl (7.5-11.1); MONO % 9.4 % (3.8-10.2); NEUT % 75.1 % (42.8-82.8); PLATELET COUNT 228 K/MM3 (134-434); RBC 2.87 M/mm3 (4.00-5.60); RDW 17.3 % (11.9-15.9); WHITE BLOOD COUNT 6.4 K/mm3 (4.0-10.0)
[2017-07-17 07:58] LABS: INR 1.62 (0.82-1.09); PROTHROMBIN TIME (PATIENT) 18.3 SEC (9.7-13.0)
[2017-07-17 08:50] LABS: ALBUMIN 3.4 g/dl (3.4-5.0); ANION GAP 7 (8-16); BLOOD UREA NITROGEN 11 mg/dL (7-18); CALCIUM 8.5 mg/dL (8.5-10.1); CHLORIDE 107 mmol/L (98-107); CO2 27 mmol/L (21-32); GLUCOSE,RANDOM 90 mg/dL (74-106); POTASSIUM 3.7 mmol/L (3.5-5.1); SGOT/AST 14 U/L (15-37); SGPT/ALT 16 U/L (12-78); SODIUM 141 mmol/L (136-145)
[2017-07-17 08:52] LABS: ALK PHOS 91 U/L (45-117); BILIRUBIN,TOTAL 0.6 mg/dL (0.2-1.0); CREATININE 0.6 mg/dL (0.7-1.3); TOT PROT 6.4 g/dl (6.4-8.2)
--- NOTE | 2017-07-17 09:52 | PN ---
Progress Note, Physician History of Present Illness: No recurrent melena. Hgb stable post transfusion. Plan for EGD/colonoscopy today. - Current Medication List Current Medications: Active Medications Acetaminophen (Tylenol -) 650 mg PO Q6H PRN PRN Reason: FEVER Acetaminophen (Tylenol -) 650 mg PO ONCE ONE Stop: 07/17/17 10:01 Amlodipine Besylate (Norvasc -) 2.5 mg PO BID [facility] Last Admin: 07/16/17 22:56 Dose: 2.5 mg Atorvastatin Calcium (Lipitor -) 40 mg PO HS [facility] Last Admin: 07/16/17 22:56 Dose: 40 mg Docusate Sodium (Colace -) 100 mg PO TID [facility] Last Admin: 07/17/17 05:29 Dose: Not Given Sodium Chloride (Normal Saline -) 250 mls @ 250 mls/hr IV ONCE ONE Stop: 07/17/17 10:59 Dexamethasone Sodium Phosphate 20 mg/ Diphenhydramine HCl 50 mg/ Sodium Chloride 103 mls @ 206 mls/hr IVPB ONCE ONE Stop: 07/17/17 10:29 Rituximab 500 mg/ Rituximab (389 mg/ Sodium Chloride) 889 mls @ 200 mls/hr IVPB ONCE ONE Stop: 07/17/17 14:56 Cyclophosphamide 940 mg/ (Sodium Chloride) 297 mls @ 594 mls/hr IVPB ONCE ONE Stop: 07/17/17 15:29 Vincristine Sulfate 1 mg/ (Sodium Chloride) 51 mls @ 204 mls/hr IVPB ONCE ONE Stop: 07/17/17 15:44 Levetiracetam (Keppra -) 500 mg PO BID [facility] Last Admin: 07/16/17 22:57 Dose: 500 mg Nortriptyline HCl (Pamelor -) 10 mg PO [facility] Last Admin: 07/16/17 22:57 Dose: 10 mg Palonosetron (Aloxi -) 0.25 mg IVPUSH ONCE ONE Stop: 07/17/17 10:01 Pantoprazole Sodium (Protonix Iv) 40 mg IVPUSH BID [facility] Last Admin: 07/16/17 22:57 Dose: 40 mg Solifenacin (Vesicare -) 10 mg PO DAILY [facility] Last Admin: 07/16/17 10:16 Dose: 10 mg - Objective Vital Signs: Vital Signs Temperature 98.2 F 07/17/17 05:36 Pulse Rate 82 07/17/17 05:36 Respiratory Rate 20 07/17/17 05:36 Blood Pressure 114/59 07/17/17 05:36 O2 Sat by Pulse Oximetry (%) 96 07/16/17 21:00 Constitutional: Yes: No Distress, Calm Neck: Yes: Supple Cardiovascular: Yes: Pulse Irregular Respiratory: Yes: Regular, CTA Bilaterally Gastrointestinal: Yes: Soft, Hypoactive Bowel Sounds Edema: No Labs: CBC, BMP 07/17/17 06:00 07/17/17 06:00 INR, PTT INR 1.62 (0.82-1.09) H 07/17/17 06:00 Problem List - Problems (1) Pre-procedural cardiovascular examination Code(s): Z01.810 - ENCOUNTER FOR PREPROCEDURAL CARDIOVASCULAR EXAMINATION (2) Acute blood loss anemia Code(s): D62 - ACUTE POSTHEMORRHAGIC ANEMIA (3) Anticoagulation excessive Code(s): [id number] - (4) History of melena Code(s): Z87.19 - PERSONAL HISTORY OF OTHER DISEASES OF THE DIGESTIVE SYSTEM (5) Atrial fibrillation Code(s): I48.91 - UNSPECIFIED ATRIAL FIBRILLATION Qualifiers: Atrial fibrillation type: chronic Qualified Code(s): I48.2 - Chronic atrial fibrillation (6) HTN (hypertension) Code(s): I10 - ESSENTIAL (PRIMARY) HYPERTENSION Qualifiers: Hypertension type: essential hypertension Qualified Code(s): I10 - Essential (primary) hypertension (7) History of prosthetic aortic valve Code(s): Z95.2 - PRESENCE OF PROSTHETIC HEART VALVE (8) Lymphoma Code(s): C85.90 - NON-HODGKIN LYMPHOMA, UNSPECIFIED, UNSPECIFIED SITE Qualifiers: Lymphoma type: non-Hodgkin Non-Hodgkin lymphoma type: follicular Follicular lymphoma grade: grade II Lymphoma site: lower extremity Qualified Code(s): C82.15 - Follicular lymphoma grade II, lymph nodes of inguinal region and lower limb (9) Old cerebrovascular accident (CVA) without late effect Code(s): Z86.73 - PRSNL HX OF TIA (TIA), AND CEREB INFRC W/O RESID DEFICITS (10) Pacemaker Code(s): Z95.0 - PRESENCE OF CARDIAC PACEMAKER (11) Thoracic aortic aneurysm Code(s): I71.2 - THORACIC AORTIC ANEURYSM, WITHOUT RUPTURE Qualifiers: Presence of rupture: without rupture Qualified Code(s): I71.2 - Thoracic aortic aneurysm, without rupture Assessment/Plan 07/2016 Echo: Normal LV and RV size and fxn, severe LAE, mild EKTA, mild AR, MR, TR, normal prosthetic gradients, PPM wire in RV 1. Pre-procedure cardiovascular exam prior to EGD/colonoscopy for eval of anemia , r/o GI source in setting of supratherapeutic INR 2. LV diastolic dysfunction euvolemic 2. Post re-operative AVR (#25 [employer] Trifecta bioprosthetic aortic valve prosthesis) 3. Ascending thoracic aortic aneurysm post-reop repair 4. AV block post permanent pacemaker implantation [employer] device, post recent generator change 5. Persistent atrial fibrillation [id number] score of 5 on A/C therapy with supratherapeutic INR 6. History of septic embolic Rt MCA stroke 7. HTN 8. Follicular lymphoma undergoing chemotherapy s/p 3 cycles of R-CVP starting 4th. PLAN: 1. Patient may proceed with EGD and colonoscopy from CV-standpoint as INR has decreased to acceptable level 1.5-1.7. Abx prophylaxis for endocarditis is not recommended for GI tract procedures 2. Continue Norvasc 2.5 bid, Lipitor 40 qd, hold Lasix 40 qd for now 3. Monitor Hgb post transfusion and maintain Hgb>8.0 4. Reinitiation of anticoagulation once hemostasis achieved and Hgb stable per GI 5. Patient to follow-up with Dr. Beck of [facility] as outpatient
[2017-07-17] MEDS ORDERED: SODIUM CHLORIDE 250 ML IV ONE (10:00)
[2017-07-17] MEDS ORDERED: PALONOSETRON HCL 0.25 MG/5 ML VIAL IVPUSH ONE (10:00)
[2017-07-17] MEDS ORDERED: ACETAMINOPHEN 325 MG TABLET (FP) PO ONE (10:00)
[2017-07-17] MEDS ORDERED: DEXAMETHASONE INJECTION 20 MG, DIPHENHYDRAMINE 50 MG in SODIUM CHLORIDE 100 ML IVPB ONE (10:00)
[2017-07-17] MEDS ORDERED: SODIUM CHLORIDE IVPB ONE ×2 (10:30→15:00)
[2017-07-17] MEDS ORDERED: RITUXIMAB IVPB ONE (10:30)
[2017-07-17] MEDS ORDERED: PROPOFOL 20 ML ONE ×3 (10:38)
[2017-07-17] MEDS ORDERED: ETOMIDATE 20 MG/10 ML AMPUL IVPUSH ONE (11:52)
--- NOTE | 2017-07-17 12:30 | PN ---
Progress Note (short form) - Note Progress Note: Pt seen and examined. INR 1.6. Went for GI procedures today. Procedure notes reviewed, d/w GI. d/w pt. Constitutional: Yes: Well Nourished, No Distress, Calm Eyes: Yes: Conjunctiva Clear, EOM Intact HENT: Yes: Atraumatic, Normocephalic Neck: Yes: Supple, Trachea Midline Cardiovascular: Yes: Regular Rate and Rhythm Respiratory: Yes: Regular, CTA Bilaterally Gastrointestinal: Yes: Normal Bowel Sounds, Soft, Abdomen, Obese Extremities: Yes: WNL Last Vital Signs Temp Pulse Resp BP Pulse Ox 98.2 F 82 20 114/59 96 07/17/17 05:36 07/17/17 05:36 07/17/17 05:36 07/17/17 05:36 07/16/17 21:00 CBC, BMP 07/17/17 06:00 07/17/17 06:00 Current Medications Generic Name Dose Route Start Last Admin Trade Name Freq PRN Reason Stop Dose Admin Acetaminophen 650 mg 07/14/17 13:41 Tylenol - PO Q6H PRN FEVER Amlodipine Besylate 2.5 mg 07/14/17 22:00 07/16/17 22:56 Norvasc - PO 2.5 mg BID DIANE Administration Atorvastatin Calcium 40 mg 07/14/17 22:00 07/16/17 22:56 Lipitor - PO 40 mg HS DIANE Administration Docusate Sodium 100 mg 07/14/17 14:00 07/17/17 05:29 Colace - PO Not Given TID DIANE Rituximab 500 mg/ Rituximab 889 mls @ 200 mls/hr 07/17/17 10:30 389 mg/ Sodium Chloride IVPB 07/17/17 14:56 ONCE ONE Cyclophosphamide 940 mg/ 297 mls @ 594 mls/hr 07/17/17 15:00 Sodium Chloride IVPB 07/17/17 15:29 ONCE ONE Vincristine Sulfate 1 mg/ 51 mls @ 204 mls/hr 07/17/17 15:30 Sodium Chloride IVPB 07/17/17 15:44 ONCE ONE Levetiracetam 500 mg 07/14/17 22:00 07/16/17 22:57 Keppra - PO 500 mg BID DIANE Administration Nortriptyline HCl 10 mg 07/14/17 22:00 07/16/17 22:57 Pamelor - PO 10 mg HS DIANE Administration Pantoprazole Sodium 40 mg 07/15/17 12:00 07/16/17 22:57 Protonix Iv IVPUSH 40 mg BID DIANE Administration Solifenacin 10 mg 07/15/17 10:00 07/16/17 10:16 Vesicare - PO 10 mg DAILY DIANE Administration Acute Anemia: EGD with an atypical looking non-bleeding friable ulcer GI recommends that pt should be off of AC if possible will discuss with cardiology. c/w carafate /PPI interim. FL: for C4 of R-CVP today. if here post weekend, will start Neupogen starting tomorrow evening Cardiac Co-morbids: Presently difficult situation in terms of systemic AC. d.w pt and over the phone. Problem List - Problems (1) Atrial fibrillation Code(s): I48.91 - UNSPECIFIED ATRIAL FIBRILLATION Qualifiers: Atrial fibrillation type: chronic Qualified Code(s): I48.2 - Chronic atrial fibrillation (2) HTN (hypertension) Code(s): I10 - ESSENTIAL (PRIMARY) HYPERTENSION Qualifiers: Hypertension type: essential hypertension Qualified Code(s): I10 - Essential (primary) hypertension (3) History of prosthetic aortic valve Code(s): Z95.2 - PRESENCE OF PROSTHETIC HEART VALVE (4) Lymphoma Code(s): C85.90 - NON-HODGKIN LYMPHOMA, UNSPECIFIED, UNSPECIFIED SITE Qualifiers: Lymphoma type: non-Hodgkin Non-Hodgkin lymphoma type: follicular Follicular lymphoma grade: grade II Lymphoma site: lower extremity Qualified Code(s): C82.15 - Follicular lymphoma grade II, lymph nodes of inguinal region and lower limb
--- NOTE | 2017-07-17 13:03 | PROC ---
Endoscopy Procedure Endoscopy procedure completed. Please see scanned procedure report. Atypical-appearing, non-bleeding, deep, friable ulcer was found in the 2nd portion of the duodenum and biopsied. Multiple colon polyps were found and removed. Avoid anticoagulation if possible (mechanical heart valve) PPI, Carafate Await biopsy results Resume diet
[2017-07-17] MEDS: PANTOPRAZOLE SODIUM 40 MG VIAL IVPUSH SCH ×2 (13:31→22:29)
[2017-07-17] MEDS: amLODIPine BESYLATE 2.5 MG TABLET (FP) PO SCH ×2 (13:50→22:38)
[2017-07-17] MEDS: levETIRAcetam 500 MG TABLET (FP) PO SCH ×2 (13:50→22:29)
[2017-07-17] MEDS ORDERED: PT OWN MED DRAWER 7, Y5N ONE (13:52)
[2017-07-17] MEDS: SOLIFENACIN SUCCINATE 5 MG TAB (FP) PO SCH (13:53)
--- NOTE | 2017-07-17 14:24 | PN ---
Progress Note, Physician Chief Complaint: non bleeding deep friable ulcer seen in second part of duodenum s/p egd and colonoscopy receiving chemotherapy - Current Medication List Current Medications: Active Medications Acetaminophen (Tylenol -) 650 mg PO Q6H PRN PRN Reason: FEVER Amlodipine Besylate (Norvasc -) 2.5 mg PO BID [facility] Last Admin: 07/17/17 13:50 Dose: 2.5 mg Atorvastatin Calcium (Lipitor -) 40 mg PO [facility] Last Admin: 07/16/17 22:56 Dose: 40 mg Docusate Sodium (Colace -) 100 mg PO TID [facility] Last Admin: 07/17/17 05:29 Dose: Not Given Rituximab 500 mg/ Rituximab (389 mg/ Sodium Chloride) 889 mls @ 200 mls/hr IVPB ONCE ONE Stop: 07/17/17 14:56 Last Admin: 07/17/17 14:11 Dose: 200 mls/hr Cyclophosphamide 940 mg/ (Sodium Chloride) 297 mls @ 594 mls/hr IVPB ONCE ONE Stop: 07/17/17 15:29 Vincristine Sulfate 1 mg/ (Sodium Chloride) 51 mls @ 204 mls/hr IVPB ONCE ONE Stop: 07/17/17 15:44 Levetiracetam (Keppra -) 500 mg PO BID [facility] Last Admin: 07/17/17 13:50 Dose: 500 mg Nortriptyline HCl (Pamelor -) 10 mg PO [facility] Last Admin: 07/16/17 22:57 Dose: 10 mg Pantoprazole Sodium (Protonix Iv) 40 mg IVPUSH BID [facility] Last Admin: 07/17/17 13:31 Dose: Not Given Solifenacin (Vesicare -) 10 mg PO DAILY [facility] Last Admin: 07/17/17 13:53 Dose: 10 mg Sucralfate (Carafate -) 1 gm PO [facility] - Objective Vital Signs: Vital Signs Temperature 97.9 F 07/17/17 13:48 Pulse Rate 81 07/17/17 13:48 Respiratory Rate 20 07/17/17 13:48 Blood Pressure 125/73 07/17/17 13:48 O2 Sat by Pulse Oximetry (%) 100 07/17/17 13:25 Constitutional: Yes: Calm Neck: Yes: Trachea Midline Cardiovascular: Yes: Regular Rate and Rhythm, S1, S2 Respiratory: Yes: CTA Bilaterally Gastrointestinal: Yes: Normal Bowel Sounds, Soft Edema: No Neurological: Yes: Alert, Oriented Labs: CBC, BMP 07/17/17 06:00 07/17/17 06:00 INR, PTT INR 1.62 (0.82-1.09) H 07/17/17 06:00 Problem List - Problems (1) Acute blood loss anemia Assessment/Plan: s/p EGD/colonoscopy per GI to avoid AC if possible will defer to cardiology about restarting AC monitor H/h PPI and carafate Code(s): D62 - ACUTE POSTHEMORRHAGIC ANEMIA (2) History of prosthetic aortic valve Assessment/Plan: AC on hold for now will defer to cardio about restarting AC Code(s): Z95.2 - PRESENCE OF PROSTHETIC HEART VALVE (3) Lymphoma Assessment/Plan: on chemo per Heme Code(s): C85.90 - NON-HODGKIN LYMPHOMA, UNSPECIFIED, UNSPECIFIED SITE Qualifiers: Lymphoma type: non-Hodgkin Non-Hodgkin lymphoma type: follicular Follicular lymphoma grade: grade II Lymphoma site: lower extremity Qualified Code(s): C82.15 - Follicular lymphoma grade II, lymph nodes of inguinal region and lower limb
[2017-07-17] MEDS ORDERED: CYCLOPHOSPHAMIDE IVPB ONE (15:00)
[2017-07-17] MEDS ORDERED: vinCRIStine SULFATE 1 MG in SODIUM CHLORIDE 50 ML IVPB ONE (15:30)
[2017-07-17] MEDS ORDERED: HEPARIN NA (PORCINE) 5,000 UNITS/ML 1ML VIAL IVPUSH PRN (16:59)
[2017-07-17] MEDS ORDERED: HEPARIN INFUSION - 25,000 UNITS/500 ML INFUS.BAG IVPB SCH (17:00)
[2017-07-17] MEDS: SUCRALFATE 1 GM TABLET (FP) PO SCH ×2 (18:52→22:29)
[2017-07-17] MEDS: HEPARIN INFUSION - 25,000 UNITS/500 ML INFUS.BAG IVPB SCH (22:30)
[2017-07-17] MEDS: ATORVASTATIN CA 40 MG TABLET (FP) PO SCH (22:30)
[2017-07-17] MEDS: NORTRIPTYLINE HCL 10 MG CAPSULE PO SCH (22:39)
[2017-07-18 00:14] LABS: SERUM IRON SATURATION 7 % (15-55); TOTAL IRON BINDING CAPACITY 321 ug/dL (250-450); UIBC 298 ug/dL (111-343)
[2017-07-18] MEDS ORDERED: ZOLPIDEM TARTRATE 5 MG TABLET PO ONE (00:15)
[2017-07-18] MEDS: DOCUSATE SODIUM 100 MG CAPSULE (FP) PO SCH ×3 (06:54→21:08)
[2017-07-18] MEDS: SUCRALFATE 1 GM TABLET (FP) PO SCH ×4 (06:55→21:10)
[2017-07-18 07:55] LABS: HEMATOCRIT 27.2 % (35.4-49); HEMOGLOBIN 9.1 GM/dL (11.7-16.9); LYMPH % 5.3 % (8-40); MCH 29.8 pg (25.7-33.7); MCHC 33.4 g/dl (32.0-35.9); MEAN CELL VOLUME 89.1 fl (80-96); MEAN PLT VOLUME 8.9 fl (7.5-11.1); MONO % 2.8 % (3.8-10.2); NEUT % 91.9 % (42.8-82.8); PLATELET COUNT 314 K/MM3 (134-434); RBC 3.05 M/mm3 (4.00-5.60); WHITE BLOOD COUNT 5.2 K/mm3 (4.0-10.0)
[2017-07-18 08:02] LABS: CHLORIDE 108 mmol/L (98-107); POTASSIUM 4.2 mmol/L (3.5-5.1); SODIUM 141 mmol/L (136-145)
[2017-07-18 08:16] LABS: ALBUMIN 3.6 g/dl (3.4-5.0); ALK PHOS 99 U/L (45-117); ANION GAP 6 (8-16); BILIRUBIN,TOTAL 0.5 mg/dL (0.2-1.0); BLOOD UREA NITROGEN 13 mg/dL (7-18); CALCIUM 8.8 mg/dL (8.5-10.1); CO2 27 mmol/L (21-32); CREATININE 0.8 mg/dL (0.7-1.3); GLUCOSE,RANDOM 143 mg/dL (74-106); SGOT/AST 15 U/L (15-37); SGPT/ALT 19 U/L (12-78); TOT PROT 6.9 g/dl (6.4-8.2)
--- NOTE | 2017-07-18 08:28 | PN ---
GI Progress Note Subjective: No acute events Sitting up eating breakfast No abdominal pain/rectal bleeding Heparin restarted - Objective Vital Signs: Vital Signs Temperature 98 F 07/18/17 07:03 Pulse Rate 80 07/18/17 07:03 Respiratory Rate 20 07/18/17 07:03 Blood Pressure 113/63 07/18/17 07:03 O2 Sat by Pulse Oximetry (%) 97 07/17/17 21:00 Constitutional: Calm Eyes: No: Sclera Icterus Cardiovascular: Yes: Regular Rate and Rhythm (audible mechanical valev click) Respiratory: Yes: CTA Bilaterally Gastrointestinal Inspection: No: Distention ...Auscultate: Yes: Normoactive Bowel Sounds ...Palpate: Yes: Hepatomegaly, Splenomegaly. No: Tenderness ...Percussion: No: Tympanitic Edema: No (no LE edema) Neurological: Yes: Alert, Oriented Labs: CBC, BMP 07/18/17 06:00 07/18/17 06:00 INR, PTT INR 1.62 (0.82-1.09) H 07/17/17 06:00 Problem List - Problems (1) GI bleeding Assessment/Plan: No overt bleeding s/p EGD and colonoscopy with finding of colon polyps and atypical appearing 2nd portion duodenal ulcer: PPI, changed to PO Await pathology results Monitor for bleeding while on A/C Await pathology results Dr. Veras resumes care Thursday07/20/17 Code(s): K92.2 - GASTROINTESTINAL HEMORRHAGE, UNSPECIFIED
[2017-07-18] MEDS: PANTOPRAZOLE 40 MG TABLET (FP) PO SCH ×2 (10:28→21:08)
[2017-07-18] MEDS: amLODIPine BESYLATE 2.5 MG TABLET (FP) PO SCH ×2 (10:28→21:13)
[2017-07-18] MEDS: predniSONE 20 MG TABLET (UD) PO SCH (10:28)
[2017-07-18] MEDS: levETIRAcetam 500 MG TABLET (FP) PO SCH ×2 (10:28→21:08)
[2017-07-18] MEDS: SOLIFENACIN SUCCINATE 5 MG TAB (FP) PO SCH (10:30)
--- NOTE | 2017-07-18 11:02 | PN ---
Progress Note (short form) - Note Progress Note: Seen in follow up. No new complaints, in good spirits. Received CVP-R day 1 yesterday without complications or adverse effect. Heparin titration - has not observed bleeding Inpatient Meds reviewed. Current Medications Generic Name Dose Route Start Last Admin Trade Name Freq PRN Reason Stop Dose Admin Acetaminophen 650 mg 07/14/17 13:41 Tylenol - PO Q6H PRN FEVER Amlodipine Besylate 2.5 mg 07/14/17 22:00 07/18/17 10:28 Norvasc - PO 2.5 mg BID DIANE Administration Atorvastatin Calcium 40 mg 07/14/17 22:00 07/17/17 22:30 Lipitor - PO 40 mg HS DIANE Administration Docusate Sodium 100 mg 07/14/17 14:00 07/18/17 06:54 Colace - PO 100 mg TID DIANE Administration Heparin Sodium (Porcine) 1,000 unit 07/17/17 16:59 Heparin - IVPUSH PRN PRN Heparin Heparin Sodium (Porcine) 5,000 unit 07/17/17 16:59 Heparin - IVPUSH PRN PRN Heparin Heparin Sodium/Dextrose 25,000 units in 500 mls @ 12 mls/hr 07/17/17 20:30 22:30 Heparin Infusion - IVPB 600 units/hr TITR DIANE 12 mls/hr Protocol Administration 600 UNITS/HR Levetiracetam 500 mg 07/14/17 22:00 07/18/17 10:28 Keppra - PO 500 mg BID DIANE Administration Nortriptyline HCl 10 mg 07/14/17 22:00 07/17/17 22:39 Pamelor - PO 10 mg HS DIANE Administration Pantoprazole Sodium 40 mg 07/18/17 10:00 07/18/17 10:28 Protonix - PO 40 mg BID DIANE Administration Pegfilgrastim 6 mg 07/18/17 10:44 Neulasta - SQ 07/18/17 10:45 ONCE ONE Prednisone 100 mg 07/18/17 10:00 07/18/17 10:28 Deltasone - PO 07/21/17 10:01 100 mg DAILY DIANE Administration Solifenacin 10 mg 07/15/17 10:00 07/18/17 10:30 Vesicare - PO 10 mg DAILY DIANE Administration Sucralfate 1 gm 07/17/17 16:30 07/18/17 10:31 Carafate - PO 1 gm ACHS DIANE Administration On exam: Last Vital Signs Temp Pulse Resp BP Pulse Ox 98 F 80 20 113/63 97 07/18/17 07:03 07/18/17 07:03 07/18/17 07:03 07/18/17 07:03 07/17/17 21:00 General: In no acute distress. Extremities: No pallor or icterus. Chest:breathing comfortably Abdomen: Non-distended Neuro: Alert, oriented, non-focal. Labs CBC, BMP 07/18/17 06:00 07/18/17 06:00 Assessment. NHL currently admitted for C4 CVP-R - today D2. Neulasta today. Good response thus far (PET-CT after C3) [facility] today. Mechanical heart valve on AC - held for recent endoscopy (polyps removed, non- bleeding ulcer). Now on heparin titration, bridge to coumadin. Would favor starting warfarin at this time, to decrease length of stay in hospital, but will defer to GI. Alternatively, seems reasonable to DC home on LMWH with monitoring of INR at home, but LMWH not favored by cardiology (for indication thromboprophylaxis mechanical valves) - will defer to cardiology.
[2017-07-18] MEDS ORDERED: PEGFILGRASTIM 6 MG/0.6 ML DISP.SYRIN SQ ONE (11:15)
--- NOTE | 2017-07-18 12:24 | PN ---
Progress Note, Physician - Current Medication List Current Medications: Active Medications Acetaminophen (Tylenol -) 650 mg PO Q6H PRN PRN Reason: FEVER Amlodipine Besylate (Norvasc -) 2.5 mg PO BID [facility] Last Admin: 07/18/17 10:28 Dose: 2.5 mg Atorvastatin Calcium (Lipitor -) 40 mg PO HS [facility] Last Admin: 07/17/17 22:30 Dose: 40 mg Docusate Sodium (Colace -) 100 mg PO TID [facility] Last Admin: 07/18/17 06:54 Dose: 100 mg Heparin Sodium (Porcine) (Heparin -) 1,000 unit IVPUSH PRN PRN PRN Reason: Heparin Heparin Sodium (Porcine) (Heparin -) 5,000 unit IVPUSH PRN PRN PRN Reason: Heparin Heparin Sodium/Dextrose (Heparin Infusion -) 25,000 units in 500 mls @ 12 mls/ hr IVPB TITR DIANE; 600 UNITS/HR PRN Reason: Protocol Last Admin: 07/17/17 22:30 Dose: 600 units/hr, 12 mls/hr Levetiracetam (Keppra -) 500 mg PO BID [facility] Last Admin: 07/18/17 10:28 Dose: 500 mg Nortriptyline HCl (Pamelor -) 10 mg PO HS [facility] Last Admin: 07/17/17 22:39 Dose: 10 mg Pantoprazole Sodium (Protonix -) 40 mg PO BID [facility] Last Admin: 07/18/17 10:28 Dose: 40 mg Prednisone (Deltasone -) 100 mg PO DAILY [facility] Stop: 07/21/17 10:01 Last Admin: 07/18/17 10:28 Dose: 100 mg Solifenacin (Vesicare -) 10 mg PO DAILY [facility] Last Admin: 07/18/17 10:30 Dose: 10 mg Sucralfate (Carafate -) 1 gm PO ACHS [facility] Last Admin: 07/18/17 10:31 Dose: 1 gm - Objective Vital Signs: Vital Signs Temperature 98 F 07/18/17 07:03 Pulse Rate 80 07/18/17 07:03 Respiratory Rate 20 07/18/17 07:03 Blood Pressure 113/63 07/18/17 07:03 O2 Sat by Pulse Oximetry (%) 97 07/17/17 21:00 Neck: Yes: Supple Cardiovascular: Yes: S1, S2 Respiratory: Yes: Regular, CTA Bilaterally Gastrointestinal: Yes: Normal Bowel Sounds, Soft. No: Tenderness Labs: CBC, BMP 07/18/17 06:00 07/18/17 06:00 INR, PTT INR 1.62 (0.82-1.09) H 07/17/17 06:00 Assessment/Plan Problems (1) Acute blood loss anemia Assessment/Plan: s/p EGD/colonoscopy monitor H/h PPI and carafate Code(s): D62 - ACUTE POSTHEMORRHAGIC ANEMIA (2) History of prosthetic aortic valve Assessment/Plan: AC with heparin -resume coumadin--d/w dr landry Code(s): Z95.2 - PRESENCE OF PROSTHETIC HEART VALVE (3) Lymphoma Assessment/Plan: on chemo per Heme Code(s): C85.90 - NON-HODGKIN LYMPHOMA, UNSPECIFIED, UNSPECIFIED SITE Qualifiers: Lymphoma type: non-Hodgkin Non-Hodgkin lymphoma type: follicular Follicular lymphoma grade: grade II Lymphoma site: lower extremity Qualified Code(s): C82.15 - Follicular lymphoma grade II, lymph nodes of inguinal region and lower limb
--- NOTE | 2017-07-18 13:11 | PN ---
Progress Note, Physician Chief Complaint: Events noted Not in distress History of Present Illness: Patient was seen and examined. Awake and alert. Chart was reviewed Denies chest pain, SOB or palpitations - Current Medication List Current Medications: Active Medications Acetaminophen (Tylenol -) 650 mg PO Q6H PRN PRN Reason: FEVER Amlodipine Besylate (Norvasc -) 2.5 mg PO BID [facility] Last Admin: 07/18/17 10:28 Dose: 2.5 mg Atorvastatin Calcium (Lipitor -) 40 mg PO HS [facility] Last Admin: 07/17/17 22:30 Dose: 40 mg Docusate Sodium (Colace -) 100 mg PO TID [facility] Last Admin: 07/18/17 06:54 Dose: 100 mg Heparin Sodium (Porcine) (Heparin -) 1,000 unit IVPUSH PRN PRN PRN Reason: Heparin Heparin Sodium (Porcine) (Heparin -) 5,000 unit IVPUSH PRN PRN PRN Reason: Heparin Heparin Sodium/Dextrose (Heparin Infusion -) 25,000 units in 500 mls @ 12 mls/ hr IVPB TITR DIANE; 600 UNITS/HR PRN Reason: Protocol Last Admin: 07/17/17 22:30 Dose: 600 units/hr, 12 mls/hr Levetiracetam (Keppra -) 500 mg PO BID [facility] Last Admin: 07/18/17 10:28 Dose: 500 mg Nortriptyline HCl (Pamelor -) 10 mg PO HS [facility] Last Admin: 07/17/17 22:39 Dose: 10 mg Pantoprazole Sodium (Protonix -) 40 mg PO BID [facility] Last Admin: 07/18/17 10:28 Dose: 40 mg Prednisone (Deltasone -) 100 mg PO DAILY [facility] Stop: 07/21/17 10:01 Last Admin: 07/18/17 10:28 Dose: 100 mg Solifenacin (Vesicare -) 10 mg PO DAILY [facility] Last Admin: 07/18/17 10:30 Dose: 10 mg Sucralfate (Carafate -) 1 gm PO ACHS [facility] Last Admin: 07/18/17 10:31 Dose: 1 gm Tbo-Filgrastim (Granix -) 480 mcg SQ DAILY [facility] Stop: 07/23/17 10:01 Warfarin Sodium (Coumadin -) 7.5 mg PO ONCE@1800 ONE Stop: 07/18/17 18:01 - Objective Vital Signs: Vital Signs Temperature 98 F 07/18/17 07:03 Pulse Rate 80 07/18/17 07:03 Respiratory Rate 20 07/18/17 07:03 Blood Pressure 113/63 07/18/17 07:03 O2 Sat by Pulse Oximetry (%) 97 07/17/17 21:00 Constitutional: Yes: Well Nourished Eyes: Yes: PERRL HENT: Yes: Atraumatic Neck: Yes: Supple Cardiovascular: Yes: Regular Rate and Rhythm, S1, S2, Other (mechanical click) Respiratory: Yes: CTA Bilaterally Gastrointestinal: Yes: Normal Bowel Sounds, Soft. No: Tenderness Edema: No Additional Findings/Remarks: Review of Systems: Constitutional: Denies fever, chills or weight loss Head and Neck: Denies Headaches, photophobia or blurring of vision Respiratory: Denies cough or sputum production Cardiovascular: As noted above Gastrointestinal: Denies nausea, vomiting, diarrhea or abdominal discomfort Genitourinary: Denies frequency or Urgency Musculoskeletal: No symptoms reported Endocrine: No symptoms reported Labs: CBC, BMP 07/18/17 06:00 07/18/17 06:00 INR, PTT INR 1.62 (0.82-1.09) H 07/17/17 06:00 Problem List - Problems (1) GI bleeding Code(s): K92.2 - GASTROINTESTINAL HEMORRHAGE, UNSPECIFIED (2) Atrial fibrillation Code(s): I48.91 - UNSPECIFIED ATRIAL FIBRILLATION Qualifiers: Atrial fibrillation type: chronic Qualified Code(s): I48.2 - Chronic atrial fibrillation (3) HTN (hypertension) Code(s): I10 - ESSENTIAL (PRIMARY) HYPERTENSION Qualifiers: Hypertension type: essential hypertension Qualified Code(s): I10 - Essential (primary) hypertension (4) History of prosthetic aortic valve Code(s): Z95.2 - PRESENCE OF PROSTHETIC HEART VALVE (5) Lymphoma Code(s): C85.90 - NON-HODGKIN LYMPHOMA, UNSPECIFIED, UNSPECIFIED SITE Qualifiers: Lymphoma type: non-Hodgkin Non-Hodgkin lymphoma type: follicular Follicular lymphoma grade: grade II Lymphoma site: lower extremity Qualified Code(s): C82.15 - Follicular lymphoma grade II, lymph nodes of inguinal region and lower limb (6) Systolic dysfunction without heart failure Code(s): I51.9 - HEART DISEASE, UNSPECIFIED (7) Thoracic aortic aneurysm Code(s): I71.2 - THORACIC AORTIC ANEURYSM, WITHOUT RUPTURE Qualifiers: Presence of rupture: without rupture Qualified Code(s): I71.2 - Thoracic aortic aneurysm, without rupture Assessment/Plan 1. Duodenal ulcer and colon polyp 2. LV diastolic dysfunction euvolemic 2. Post re-operative AVR (#25 [employer] Trifecta bioprosthetic aortic valve prosthesis) 3. Ascending thoracic aortic aneurysm post-reop repair 4. AV block post permanent pacemaker implantation [employer] device, post recent generator change 5. Persistent atrial fibrillation [id number] score of 5 on A/C therapy with supratherapeutic INR 6. History of septic embolic Right MCA stroke 7. HTN 8. Follicular lymphoma undergoing chemotherapy s/p 3 cycles of R-CVP starting 4th. PLAN: 1. Will need to clarify the type of prosthetic valve whether it is bioprosthesis vs. mechanical (Dr. Villagran's note states bioprosthesis). It appears that he has a bioprosthetic AVR. Either way, he will need to be reintroduced with Coumadin in view of persistent AF and stroke risk and in the interim Heparin drip. Will also need to discuss with GI. 2. Continue Norvasc 2.5 bid, Lipitor 40 qd, hold Lasix 40 qd for now 3. Monitor Hgb post transfusion and maintain Hgb>8.0 4. Patient to follow-up with Dr. Beck of [facility] as [place] Chiki Hutchison MD
[2017-07-18 13:24] LABS: INR 1.38 (0.82-1.09); PROTHROMBIN TIME (PATIENT) 15.6 SEC (9.7-13.0)
[2017-07-18] MEDS: TBO-FILGRASTIM 480 MCG/0.8 ML DISP.SYRIN SQ SCH (16:03)
[2017-07-18] MEDS ORDERED: WARFARIN NA 7.5 MG TABLET (FP) PO ONE (18:00)
[2017-07-18] MEDS: HEPARIN INFUSION - 25,000 UNITS/500 ML INFUS.BAG IVPB SCH (21:00)
[2017-07-18] MEDS: ATORVASTATIN CA 40 MG TABLET (FP) PO SCH (21:08)
[2017-07-18] MEDS: NORTRIPTYLINE HCL 10 MG CAPSULE PO SCH (21:08)
[2017-07-18] MEDS ORDERED: PT OWN MED DRAWER 7, Y5N ONE (21:10)
[2017-07-19] MEDS: HEPARIN INFUSION - 25,000 UNITS/500 ML INFUS.BAG IVPB SCH ×2 (00:21→21:05)
[2017-07-19] MEDS: SUCRALFATE 1 GM TABLET (FP) PO SCH ×4 (06:09→21:07)
[2017-07-19] MEDS: DOCUSATE SODIUM 100 MG CAPSULE (FP) PO SCH ×3 (06:09→21:07)
[2017-07-19 07:31] LABS: HEMOGLOBIN 7.8 GM/dL (11.7-16.9); MCH 29.2 pg (25.7-33.7); MCHC 32.6 g/dl (32.0-35.9); MEAN CELL VOLUME 89.6 fl (80-96); MEAN PLT VOLUME 8.6 fl (7.5-11.1); PLATELET COUNT 248 K/MM3 (134-434); RBC 2.68 M/mm3 (4.00-5.60); RDW 16.8 % (11.9-15.9)
[2017-07-19 07:35] LABS: WHITE BLOOD COUNT 39.3 K/mm3 (4.0-10.0)
[2017-07-19 07:43] LABS: INR 1.24 (0.82-1.09)
[2017-07-19] MEDS: HEPARIN NA (PORCINE) 5,000 UNITS/ML 1ML VIAL IVPUSH PRN ×2 (10:00→19:41)
[2017-07-19] MEDS: PANTOPRAZOLE 40 MG TABLET (FP) PO SCH ×2 (11:00→21:07)
[2017-07-19] MEDS: amLODIPine BESYLATE 2.5 MG TABLET (FP) PO SCH ×2 (11:00→21:08)
[2017-07-19] MEDS: levETIRAcetam 500 MG TABLET (FP) PO SCH ×2 (11:00→21:07)
[2017-07-19] MEDS: SOLIFENACIN SUCCINATE 5 MG TAB (FP) PO SCH (11:00)
[2017-07-19] MEDS: predniSONE 20 MG TABLET (UD) PO SCH (11:00)
--- NOTE | 2017-07-19 12:04 | PN ---
Progress Note, Physician - Current Medication List Current Medications: Active Medications Acetaminophen (Tylenol -) 650 mg PO Q6H PRN PRN Reason: FEVER Amlodipine Besylate (Norvasc -) 2.5 mg PO BID [facility] Last Admin: 07/19/17 11:00 Dose: 2.5 mg Atorvastatin Calcium (Lipitor -) 40 mg PO HS [facility] Last Admin: 07/18/17 21:08 Dose: 40 mg Docusate Sodium (Colace -) 100 mg PO TID [facility] Last Admin: 07/19/17 06:09 Dose: 100 mg Heparin Sodium (Porcine) (Heparin -) 1,000 unit IVPUSH PRN PRN PRN Reason: Heparin Heparin Sodium (Porcine) (Heparin -) 5,000 unit IVPUSH PRN PRN PRN Reason: Heparin Heparin Sodium/Dextrose (Heparin Infusion -) 25,000 units in 500 mls @ 12 mls/ hr IVPB TITR DIANE; 600 UNITS/HR PRN Reason: Protocol Last Admin: 07/19/17 00:21 Dose: 600 units/hr, 12 mls/hr Levetiracetam (Keppra -) 500 mg PO BID [facility] Last Admin: 07/19/17 11:00 Dose: 500 mg Nortriptyline HCl (Pamelor -) 10 mg PO HS [facility] Last Admin: 07/18/17 21:08 Dose: 10 mg Pantoprazole Sodium (Protonix -) 40 mg PO BID [facility] Last Admin: 07/19/17 11:00 Dose: 40 mg Prednisone (Deltasone -) 100 mg PO DAILY [facility] Stop: 07/21/17 10:01 Last Admin: 07/19/17 11:00 Dose: 100 mg Solifenacin (Vesicare -) 10 mg PO DAILY [facility] Last Admin: 07/19/17 11:00 Dose: 10 mg Sucralfate (Carafate -) 1 gm PO ACHS [facility] Last Admin: 07/19/17 11:00 Dose: 1 gm Tbo-Filgrastim (Granix -) 480 mcg SQ DAILY [facility] Stop: 07/23/17 10:01 Last Admin: 07/18/17 16:03 Dose: 480 mcg - Objective Vital Signs: Vital Signs Temperature 97.6 F 07/19/17 05:43 Pulse Rate 80 07/19/17 05:43 Respiratory Rate 20 07/19/17 09:00 Blood Pressure 114/68 07/19/17 05:43 O2 Sat by Pulse Oximetry (%) 95 07/19/17 09:00 Cardiovascular: Yes: S1, S2 Respiratory: Yes: Diminished Gastrointestinal: Yes: Normal Bowel Sounds, Soft Labs: CBC, BMP 07/19/17 06:00 07/18/17 06:00 INR, PTT INR 1.24 (0.82-1.09) H 07/19/17 06:00 Assessment/Plan Problems (1) Acute blood loss anemia Assessment/Plan: s/p EGD/colonoscopy monitor H/h PPI and carafate Code(s): D62 - ACUTE POSTHEMORRHAGIC ANEMIA (2) History of prosthetic aortic valve Assessment/Plan: AC with heparin -resume coumadin--d/w dr landry Code(s): Z95.2 - PRESENCE OF PROSTHETIC HEART VALVE (3) Lymphoma Assessment/Plan: on chemo per Heme Code(s): C85.90 - NON-HODGKIN LYMPHOMA, UNSPECIFIED, UNSPECIFIED SITE Qualifiers: Lymphoma type: non-Hodgkin Non-Hodgkin lymphoma type: follicular Follicular lymphoma grade: grade II Lymphoma site: lower extremity Qualified Code(s): C82.15 - Follicular lymphoma grade II, lymph nodes of inguinal region and lower limb (4) Leukocytosis Assessment/Plan: maybe steroids repeatid and onc
--- NOTE | 2017-07-19 15:09 | PN ---
Progress Note, Physician Chief Complaint: Events noted Not in distress History of Present Illness: Patient was seen and examined. Awake and alert. Chart was reviewed Denies chest pain, SOB or palpitations - Current Medication List Current Medications: Active Medications Acetaminophen (Tylenol -) 650 mg PO Q6H PRN PRN Reason: FEVER Amlodipine Besylate (Norvasc -) 2.5 mg PO BID [facility] Last Admin: 07/19/17 11:00 Dose: 2.5 mg Atorvastatin Calcium (Lipitor -) 40 mg PO HS [facility] Last Admin: 07/18/17 21:08 Dose: 40 mg Docusate Sodium (Colace -) 100 mg PO TID [facility] Last Admin: 07/19/17 06:09 Dose: 100 mg Heparin Sodium (Porcine) (Heparin -) 1,000 unit IVPUSH PRN PRN PRN Reason: Heparin Heparin Sodium (Porcine) (Heparin -) 5,000 unit IVPUSH PRN PRN PRN Reason: Heparin Heparin Sodium/Dextrose (Heparin Infusion -) 25,000 units in 500 mls @ 12 mls/ hr IVPB TITR DIANE; 600 UNITS/HR PRN Reason: Protocol Last Admin: 07/19/17 00:21 Dose: 600 units/hr, 12 mls/hr Levetiracetam (Keppra -) 500 mg PO BID [facility] Last Admin: 07/19/17 11:00 Dose: 500 mg Nortriptyline HCl (Pamelor -) 10 mg PO HS [facility] Last Admin: 07/18/17 21:08 Dose: 10 mg Pantoprazole Sodium (Protonix -) 40 mg PO BID [facility] Last Admin: 07/19/17 11:00 Dose: 40 mg Prednisone (Deltasone -) 100 mg PO DAILY [facility] Stop: 07/21/17 10:01 Last Admin: 07/19/17 11:00 Dose: 100 mg Solifenacin (Vesicare -) 10 mg PO DAILY [facility] Last Admin: 07/19/17 11:00 Dose: 10 mg Sucralfate (Carafate -) 1 gm PO ACHS [facility] Last Admin: 07/19/17 11:00 Dose: 1 gm Tbo-Filgrastim (Granix -) 480 mcg SQ DAILY [facility] Stop: 07/23/17 10:01 Last Admin: 07/18/17 16:03 Dose: 480 mcg Warfarin Sodium (Coumadin -) 10 mg PO ONCE@1800 ONE Stop: 07/19/17 18:01 - Objective Vital Signs: Vital Signs Temperature 97.6 F 07/19/17 05:43 Pulse Rate 80 07/19/17 05:43 Respiratory Rate 20 07/19/17 09:00 Blood Pressure 114/68 07/19/17 05:43 O2 Sat by Pulse Oximetry (%) 95 07/19/17 09:00 Constitutional: Yes: Well Nourished HENT: Yes: Atraumatic Neck: Yes: Supple Cardiovascular: Yes: Regular Rate and Rhythm, Murmur (Soft SM), S1, S2 Gastrointestinal: Yes: Normal Bowel Sounds, Soft. No: Tenderness Edema: No Labs: CBC, BMP 07/19/17 06:00 07/18/17 06:00 INR, PTT INR 1.24 (0.82-1.09) H 07/19/17 06:00 Problem List - Problems (1) GI bleeding Code(s): K92.2 - GASTROINTESTINAL HEMORRHAGE, UNSPECIFIED (2) Atrial fibrillation Code(s): I48.91 - UNSPECIFIED ATRIAL FIBRILLATION Qualifiers: Atrial fibrillation type: chronic Qualified Code(s): I48.2 - Chronic atrial fibrillation (3) HTN (hypertension) Code(s): I10 - ESSENTIAL (PRIMARY) HYPERTENSION Qualifiers: Hypertension type: essential hypertension Qualified Code(s): I10 - Essential (primary) hypertension (4) History of prosthetic aortic valve Code(s): Z95.2 - PRESENCE OF PROSTHETIC HEART VALVE (5) Lymphoma Code(s): C85.90 - NON-HODGKIN LYMPHOMA, UNSPECIFIED, UNSPECIFIED SITE Qualifiers: Lymphoma type: non-Hodgkin Non-Hodgkin lymphoma type: follicular Follicular lymphoma grade: grade II Lymphoma site: lower extremity Qualified Code(s): C82.15 - Follicular lymphoma grade II, lymph nodes of inguinal region and lower limb (6) Systolic dysfunction without heart failure Code(s): I51.9 - HEART DISEASE, UNSPECIFIED (7) Thoracic aortic aneurysm Code(s): I71.2 - THORACIC AORTIC ANEURYSM, WITHOUT RUPTURE Qualifiers: Presence of rupture: without rupture Qualified Code(s): I71.2 - Thoracic aortic aneurysm, without rupture Assessment/Plan 1. Duodenal ulcer and colon polyp 2. LV diastolic dysfunction euvolemic 2. Post re-operative AVR (#25 [employer] Trif[employer] bioprosthetic aortic valve prosthesis) 3. Ascending thoracic aortic aneurysm post-reop repair 4. AV block post permanent pacemaker implantation [employer] device, post recent generator change 5. Persistent atrial fibrillation [id number] score of 5 on A/C therapy with supratherapeutic INR 6. History of septic embolic Right MCA stroke 7. HTN 8. Follicular lymphoma undergoing chemotherapy s/p 3 cycles of R-CVP starting 4th. PLAN: 1. As outlined with anticoagulation with Coumadin (use with caution) 2. Continue Norvasc 2.5 bid, Lipitor 40 qd and Lasix held 3. Monitor Hgb post transfusion and maintain Hgb>8.0 4. Patient to follow-[place] with Dr. [place] [facility] [place] Chiki Hutchison MD
[2017-07-19] MEDS: TBO-FILGRASTIM 480 MCG/0.8 ML DISP.SYRIN SQ SCH (15:34)
[2017-07-19] MEDS ORDERED: WARFARIN NA 10 MG TABLET (FP) PO ONE (18:00)
[2017-07-19 18:24] LABS: HEMATOCRIT 27.6 % (35.4-49); HEMOGLOBIN 8.9 GM/dL (11.7-16.9); MCH 29.1 pg (25.7-33.7); MCHC 32.2 g/dl (32.0-35.9); MEAN CELL VOLUME 90.6 fl (80-96); MEAN PLT VOLUME 8.7 fl (7.5-11.1); PLATELET COUNT 290 K/MM3 (134-434); RBC 3.04 M/mm3 (4.00-5.60)
[2017-07-19 18:26] LABS: WHITE BLOOD COUNT 33.2 K/mm3 (4.0-10.0)
[2017-07-19 19:05] LABS: PLATELET ESTIMATE ADEQUATE
[2017-07-19] MEDS ORDERED: PT OWN MED DRAWER 7, Y5N ONE (20:21)
[2017-07-19] MEDS: ATORVASTATIN CA 40 MG TABLET (FP) PO SCH (21:07)
[2017-07-19] MEDS: NORTRIPTYLINE HCL 10 MG CAPSULE PO SCH (21:08)
--- NOTE | 2017-07-20 00:07 | PN ---
Progress Note (short form) - Note Progress Note: Seen in follow up. No new complaints, in good spirits. Received CVP-R day 1 2 days ago without complications or adverse effect. Heparin titration - has not observed bleeding - PTTs not therapeutic - following protocol. Inpatient Meds reviewed. Current Medications Generic Name Dose Route Start Last Admin Trade Name Freq PRN Reason Stop Dose Admin Acetaminophen 650 mg 07/14/17 13:41 Tylenol - PO Q6H PRN FEVER Amlodipine Besylate 2.5 mg 07/14/17 22:00 07/19/17 21:08 Norvasc - PO 2.5 mg BID [facility] Administration Atorvastatin Calcium 40 mg 07/14/17 22:00 07/19/17 21:07 Lipitor - PO 40 mg HS [facility] Administration Docusate Sodium 100 mg 07/14/17 14:00 07/19/17 21:07 Colace - PO 100 mg TID [facility] Administration Heparin Sodium (Porcine) 1,000 unit 07/17/17 16:59 Heparin - IVPUSH PRN PRN Heparin Heparin Sodium (Porcine) 5,000 unit 07/17/17 16:59 07/19/17 19:41 Heparin - IVPUSH 5,000 unit PRN PRN Administration Heparin Heparin Sodium/Dextrose 25,000 units in 500 mls @ 12 mls/hr 07/17/17 20:30 21:05 Heparin Infusion - IVPB 900 units/hr TITR DIANE 18 mls/hr Protocol Administration 600 UNITS/HR Levetiracetam 500 mg 07/14/17 22:00 07/19/17 21:07 Keppra - PO 500 mg BID [facility] Administration Nortriptyline HCl 10 mg 07/14/17 22:00 07/19/17 21:08 Pamelor - PO 10 mg HS [facility] Administration Pantoprazole Sodium 40 mg 07/18/17 10:00 07/19/17 21:07 Protonix - PO 40 mg BID [facility] Administration Prednisone 100 mg 07/18/17 10:00 07/19/17 11:00 Deltasone - PO 07/21/17 10:01 100 mg DAILY [facility] Administration Solifenacin 10 mg 07/15/17 10:00 07/19/17 11:00 Vesicare - PO 10 mg DAILY [facility] Administration Sucralfate 1 gm 07/17/17 16:30 07/19/17 21:07 Carafate - PO 1 gm ACHS [facility] Administration Tbo-Filgrastim 480 mcg 07/18/17 13:00 07/19/17 15:34 Granix - SQ 07/23/17 10:01 480 mcg DAILY [facility] Administration On exam: Last Vital Signs Temp Pulse Resp BP Pulse Ox 98.8 F 80 20 129/68 95 07/19/17 21:00 07/19/17 21:00 07/19/17 21:00 07/19/17 21:00 07/19/17 21:00 General: In no acute distress. Extremities: No pallor or icterus. Chest:breathing comfortably Abdomen: Non-distended Neuro: Alert, oriented, non-focal. Labs CBC, BMP 07/19/17 17:54 07/18/17 06:00 Assessment. NHL currently admitted for C4 CVP-R - today D3. Lisa[pgen yesterday - neutrophilia today - can hold dose today.. Good response thus far (PET-CT after C3) Mechanical heart valve on AC - held for recent endoscopy (polyps removed, non- bleeding ulcer). Now on heparin titration, bridge to coumadin. Concern about drop in Hb noted on CBC this morning, but repeat CBC reveals stable Hb. Started warfarin last night, for mechanical heart valve. Continuing heparin titration, but concerned about persistent sub therapeutic PTTs, despite adherence to protocol - continue dose escalations. Seems reasonable to DC home on LMWH with monitoring of INR at home, but LMWH not favored by cardiology (for indication thromboprophylaxis mechanical valves) - will defer to cardiology.
[2017-07-20] MEDS: HEPARIN INFUSION - 25,000 UNITS/500 ML INFUS.BAG IVPB SCH ×2 (02:55→21:39)
[2017-07-20] MEDS: DOCUSATE SODIUM 100 MG CAPSULE (FP) PO SCH ×3 (05:53→21:39)
[2017-07-20] MEDS: SUCRALFATE 1 GM TABLET (FP) PO SCH ×4 (06:19→22:12)
[2017-07-20 07:56] LABS: HEMATOCRIT 23.7 % (35.4-49); HEMOGLOBIN 7.8 GM/dL (11.7-16.9); MCH 29.8 pg (25.7-33.7); MCHC 32.9 g/dl (32.0-35.9); MEAN CELL VOLUME 90.6 fl (80-96); MEAN PLT VOLUME 8.5 fl (7.5-11.1); PLATELET COUNT 235 K/MM3 (134-434); RBC 2.62 M/mm3 (4.00-5.60)
[2017-07-20 08:01] LABS: INR 1.46 (0.82-1.09); PROTHROMBIN TIME (PATIENT) 16.5 SEC (9.7-13.0)
[2017-07-20 08:05] LABS: WHITE BLOOD COUNT 40.3 K/mm3 (4.0-10.0)
[2017-07-20 08:42] LABS: ALBUMIN 3.1 g/dl (3.4-5.0); ANION GAP 5 (8-16); BILIRUBIN,TOTAL 0.7 mg/dL (0.2-1.0); BLOOD UREA NITROGEN 21 mg/dL (7-18); CALCIUM 8.1 mg/dL (8.5-10.1); CHLORIDE 107 mmol/L (98-107); CO2 30 mmol/L (21-32); CREATININE 0.8 mg/dL (0.7-1.3); GLUCOSE,RANDOM 79 mg/dL (74-106); POTASSIUM 3.4 mmol/L (3.5-5.1); SGOT/AST 10 U/L (15-37); SGPT/ALT 14 U/L (12-78); SODIUM 142 mmol/L (136-145); TOT PROT 5.8 g/dl (6.4-8.2)
[2017-07-20 08:43] LABS: ALK PHOS 90 U/L (45-117)
[2017-07-20] MEDS ORDERED: PT OWN MED DRAWER 7, Y5N ONE ×3 (09:07→23:21)
[2017-07-20] MEDS: amLODIPine BESYLATE 2.5 MG TABLET (FP) PO SCH ×2 (09:13→21:40)
[2017-07-20] MEDS: levETIRAcetam 500 MG TABLET (FP) PO SCH ×2 (09:13→21:40)
[2017-07-20] MEDS: predniSONE 20 MG TABLET (UD) PO SCH (09:14)
[2017-07-20] MEDS: PANTOPRAZOLE 40 MG TABLET (FP) PO SCH ×2 (09:14→21:40)
[2017-07-20] MEDS: TBO-FILGRASTIM 480 MCG/0.8 ML DISP.SYRIN SQ SCH (09:14)
[2017-07-20] MEDS: SOLIFENACIN SUCCINATE 5 MG TAB (FP) PO SCH (09:15)
[2017-07-20 09:58] LABS: ANISOCYTOSIS 1+; MACROCYTOSIS 1+; OVALOCYTE 1+; PLATELET ESTIMATE NORMAL; TOXIC GRANULATION 1+
[2017-07-20] MEDS: HEPARIN NA (PORCINE) 5,000 UNITS/ML 1ML VIAL IVPUSH PRN (11:49)
--- NOTE | 2017-07-20 11:54 | PN ---
Progress Note, Physician History of Present Illness: No recurrent melena. Hgb stable post transfusion. - Current Medication List Current Medications: Active Medications Acetaminophen (Tylenol -) 650 mg PO Q6H PRN PRN Reason: FEVER Amlodipine Besylate (Norvasc -) 2.5 mg PO BID [facility] Last Admin: 07/20/17 09:13 Dose: 2.5 mg Atorvastatin Calcium (Lipitor -) 40 mg PO HS [facility] Last Admin: 07/19/17 21:07 Dose: 40 mg Docusate Sodium (Colace -) 100 mg PO TID [facility] Last Admin: 07/20/17 05:53 Dose: 100 mg Heparin Sodium (Porcine) (Heparin -) 1,000 unit IVPUSH PRN PRN PRN Reason: Heparin Last Admin: 07/20/17 02:55 Dose: 1,000 unit Heparin Sodium (Porcine) (Heparin -) 5,000 unit IVPUSH PRN PRN PRN Reason: Heparin Last Admin: 07/20/17 11:49 Dose: 5,000 unit Heparin Sodium/Dextrose (Heparin Infusion -) 25,000 units in 500 mls @ 12 mls/ hr IVPB TITR DIANE; 600 UNITS/HR PRN Reason: Protocol Last Titration: 07/20/17 11:50 Dose: 1,150 units/hr, 23 mls/hr Levetiracetam (Keppra -) 500 mg PO BID [facility] Last Admin: 07/20/17 09:13 Dose: 500 mg Nortriptyline HCl (Pamelor -) 10 mg PO HS [facility] Last Admin: 07/19/17 21:08 Dose: 10 mg Pantoprazole Sodium (Protonix -) 40 mg PO BID [facility] Last Admin: 07/20/17 09:14 Dose: 40 mg Prednisone (Deltasone -) 100 mg PO DAILY [facility] Stop: 07/21/17 10:01 Last Admin: 07/20/17 09:14 Dose: 100 mg Solifenacin (Vesicare -) 10 mg PO DAILY [facility] Last Admin: 07/20/17 09:15 Dose: 10 mg Sucralfate (Carafate -) 1 gm PO ACHS [facility] Last Admin: 07/20/17 11:46 Dose: 1 gm Tbo-Filgrastim (Granix -) 480 mcg SQ DAILY [facility] Stop: 07/23/17 10:01 Last Admin: 07/20/17 09:14 Dose: Not Given - Objective Vital Signs: Vital Signs Temperature 98.4 F 07/20/17 09:00 Pulse Rate 80 07/20/17 09:00 Respiratory Rate 20 07/20/17 09:00 Blood Pressure 121/71 07/20/17 09:00 O2 Sat by Pulse Oximetry (%) 95 07/19/17 21:00 Constitutional: Yes: No Distress, Calm Neck: Yes: Supple Cardiovascular: Yes: Regular Rate and Rhythm Respiratory: Yes: Regular, CTA Bilaterally Gastrointestinal: Yes: Normal Bowel Sounds, Soft Edema: No Labs: CBC, BMP 07/20/17 06:00 07/20/17 06:00 INR, PTT INR 1.46 (0.82-1.09) H 07/20/17 06:00 Problem List - Problems (1) Acute blood loss anemia Code(s): D62 - ACUTE POSTHEMORRHAGIC ANEMIA (2) Anticoagulation excessive Code(s): [id number] - (3) History of melena Code(s): Z87.19 - PERSONAL HISTORY OF OTHER DISEASES OF THE DIGESTIVE SYSTEM (4) Atrial fibrillation Code(s): I48.91 - UNSPECIFIED ATRIAL FIBRILLATION Qualifiers: Atrial fibrillation type: chronic Qualified Code(s): I48.2 - Chronic atrial fibrillation (5) HTN (hypertension) Code(s): I10 - ESSENTIAL (PRIMARY) HYPERTENSION Qualifiers: Hypertension type: essential hypertension Qualified Code(s): I10 - Essential (primary) hypertension (6) History of prosthetic aortic valve Code(s): Z95.2 - PRESENCE OF PROSTHETIC HEART VALVE (7) Lymphoma Code(s): C85.90 - NON-HODGKIN LYMPHOMA, UNSPECIFIED, UNSPECIFIED SITE Qualifiers: Lymphoma type: non-Hodgkin Non-Hodgkin lymphoma type: follicular Follicular lymphoma grade: grade II Lymphoma site: lower extremity Qualified Code(s): C82.15 - Follicular lymphoma grade II, lymph nodes of inguinal region and lower limb (8) Old cerebrovascular accident (CVA) without late effect Code(s): Z86.73 - PRSNL HX OF TIA (TIA), AND CEREB INFRC W/O RESID DEFICITS (9) Pacemaker Code(s): Z95.0 - PRESENCE OF CARDIAC PACEMAKER (10) Thoracic aortic aneurysm Code(s): I71.2 - THORACIC AORTIC ANEURYSM, WITHOUT RUPTURE Qualifiers: Presence of rupture: without rupture Qualified Code(s): I71.2 - Thoracic aortic aneurysm, without rupture (11) Duodenal ulcer Code(s): K26.9 - DUODENAL ULCER, UNSP ACUTE OR CHRONIC, W/O HEMOR OR PERF Assessment/Plan 1. Duodenal ulcer and colon polyp 2. LV diastolic dysfunction euvolemic 3. Post re-operative AVR (#25 [employer] Trif[employer] bioprosthetic aortic valve prosthesis) 4. Ascending thoracic aortic aneurysm post-reop repair 5. AV block post permanent pacemaker implantation [employer] device, post recent generator change 6. Persistent atrial fibrillation [id number] score of 5 on A/C therapy with subtherapeutic INR 7. History of septic embolic Right MCA stroke 8. HTN 9. Follicular lymphoma undergoing chemotherapy s/p 3 cycles of R-CVP started 4th. PLAN: 1. Resumed anticoagulation with Coumadin per INR 2-3 2. Continue Norvasc 2.5 bid, Lipitor 40 qd and Lasix held 3. Monitor Hgb post transfusion and maintain Hgb>8.0 4. Patient to follow-[place] with [place]. [place] [facility] [place] 5. F/u biopsies
--- NOTE | 2017-07-20 12:16 | PN ---
Progress Note, Physician History of Present Illness: Marked leukocytosis. Nontoxic. No acute events. Comfortable. - Current Medication List Current Medications: Active Medications Acetaminophen (Tylenol -) 650 mg PO Q6H PRN PRN Reason: FEVER Amlodipine Besylate (Norvasc -) 2.5 mg PO BID [facility] Last Admin: 07/20/17 09:13 Dose: 2.5 mg Atorvastatin Calcium (Lipitor -) 40 mg PO HS [facility] Last Admin: 07/19/17 21:07 Dose: 40 mg Docusate Sodium (Colace -) 100 mg PO TID [facility] Last Admin: 07/20/17 05:53 Dose: 100 mg Heparin Sodium (Porcine) (Heparin -) 1,000 unit IVPUSH PRN PRN PRN Reason: Heparin Last Admin: 07/20/17 02:55 Dose: 1,000 unit Heparin Sodium (Porcine) (Heparin -) 5,000 unit IVPUSH PRN PRN PRN Reason: Heparin Last Admin: 07/20/17 11:49 Dose: 5,000 unit Heparin Sodium/Dextrose (Heparin Infusion -) 25,000 units in 500 mls @ 12 mls/ hr IVPB TITR DIANE; 600 UNITS/HR PRN Reason: Protocol Last Titration: 07/20/17 11:50 Dose: 1,150 units/hr, 23 mls/hr Levetiracetam (Keppra -) 500 mg PO BID [facility] Last Admin: 07/20/17 09:13 Dose: 500 mg Nortriptyline HCl (Pamelor -) 10 mg PO HS [facility] Last Admin: 07/19/17 21:08 Dose: 10 mg Pantoprazole Sodium (Protonix -) 40 mg PO BID [facility] Last Admin: 07/20/17 09:14 Dose: 40 mg Prednisone (Deltasone -) 100 mg PO DAILY [facility] Stop: 07/21/17 10:01 Last Admin: 07/20/17 09:14 Dose: 100 mg Solifenacin (Vesicare -) 10 mg PO DAILY [facility] Last Admin: 07/20/17 09:15 Dose: 10 mg Sucralfate (Carafate -) 1 gm PO ACHS [facility] Last Admin: 07/20/17 11:46 Dose: 1 gm Tbo-Filgrastim (Granix -) 480 mcg SQ DAILY [facility] Stop: 07/23/17 10:01 Last Admin: 07/20/17 09:14 Dose: Not Given - Objective Vital Signs: Vital Signs Temperature 98.4 F 07/20/17 09:00 Pulse Rate 80 07/20/17 09:00 Respiratory Rate 20 07/20/17 09:00 Blood Pressure 121/71 07/20/17 09:00 O2 Sat by Pulse Oximetry (%) 95 07/19/17 21:00 Constitutional: Yes: Calm Eyes: Yes: Conjunctiva Clear HENT: Yes: Atraumatic Neck: Yes: Supple Cardiovascular: Yes: Regular Rate and Rhythm Respiratory: Yes: Regular Gastrointestinal: Yes: Normal Bowel Sounds, Soft. No: Ascites, Melena, Rectal Bleeding, Tenderness, Vomiting Neurological: Yes: Alert Labs: CBC, BMP 07/20/17 06:00 07/20/17 06:00 INR, PTT INR 1.46 (0.82-1.09) H 07/20/17 06:00 Laboratory Last Values WBC 40.3 K/mm3 (4.0-10.0) H* 07/20/17 06:00 RBC 2.62 M/mm3 (4.00-5.60) L 07/20/17 06:00 Hgb 7.8 GM/dL (11.7-16.9) L D 07/20/17 06:00 Hct 23.7 % (35.4-49) L 07/20/17 06:00 MCV 90.6 fl (80-96) 07/20/17 06:00 MCH 29.8 pg (25.7-33.7) 07/20/17 06:00 MCHC 32.9 g/dl (32.0-35.9) 07/20/17 06:00 RDW 17.0 % (11.9-15.9) H 07/20/17 06:00 Plt Count 235 K/MM3 (134-434) 07/20/17 06:00 MPV 8.5 fl (7.5-11.1) 07/20/17 06:00 Total Counted 100 07/19/17 17:54 Neutrophils % No Result Required. 07/20/17 06:00 Neutrophils % (Manual) 91.0 % (42.8-82.8) H 07/20/17 06:00 Band Neutrophils % 1.0 % 07/20/17 06:00 Lymphocytes % No Result Required. 07/20/17 06:00 Lymphocytes % (Manual) 2.0 % (8-40) L D 07/20/17 06:00 Monocytes % 2.8 % (3.8-10.2) L 07/18/17 06:00 Monocytes % (Manual) 5 % (3.8-10.2) D 07/20/17 06:00 Eosinophils % 0.0 % (0-4.5) D 07/18/17 06:00 Eosinophils % (Manual) 0.0 % (0-4.5) 07/20/17 06:00 Basophils % 0.0 % (0-2.0) 07/18/17 06:00 Basophils % (Manual) 0.0 % (0-2.0) 07/20/17 06:00 Myelocytes % (Man) 0 % (0-2) 07/20/17 06:00 Promyelocytes % (Man) 0 % (0-2) 07/20/17 06:00 Blast Cells % (Manual) 0 % (0-0) 07/20/17 06:00 Nucleated RBC % 0 % (0-0) 07/20/17 06:00 Metamyelocytes 1 % (0-2) 07/20/17 06:00 Differential Comment Cancelled 07/19/17 06:00 Hypersegmented Neuts Cancelled 07/19/17 06:00 Plasma Cells Cancelled 07/19/17 06:00 Smudge Cells Cancelled 07/19/17 06:00 Other Cell Type Cancelled 07/19/17 06:00 Hypochromia Cancelled 07/19/17 06:00 Toxic Granulation 1+ 07/20/17 06:00 Dohle Bodies Cancelled 07/19/17 06:00 Platelet Estimate Normal 07/20/17 06:00 Platelet Comment No clumping noted 07/19/17 17:54 Polychromasia Cancelled 07/19/17 06:00 Poikilocytosis Cancelled 07/19/17 06:00 Basophilic Stippling Cancelled 07/19/17 06:00 Anisocytosis 1+ 07/20/17 06:00 Microcytosis 1+ 07/20/17 06:00 Macrocytosis 1+ 07/20/17 06:00 Spherocytes Cancelled 07/19/17 06:00 Siderocytes Cancelled 07/19/17 06:00 Sickle Cells Cancelled 07/19/17 06:00 Target Cells Cancelled 07/19/17 06:00 Tear Drop Cells Cancelled 07/19/17 06:00 Ovalocytes 1+ 07/20/17 06:00 Stomatocytes Cancelled 07/19/17 06:00 Helmet Cells Cancelled 07/19/17 06:00 Connelly-Verdon Bodies Cancelled 07/19/17 06:00 Power Rings Cancelled 07/19/17 06:00 [place] Cells Cancelled 07/19/17 06:00 Acanthocytes (Spur) Cancelled 07/19/17 06:00 Rouleaux Cancelled 07/19/17 06:00 Fragmented RBCs Cancelled 07/19/17 06:00 Schistocytes 1+ 07/20/17 06:00 Retic Count 3.11 % (0.5-1.5) H 07/14/17 13:30 PT with INR 16.50 SEC (9.7-13.0) H 07/20/17 06:00 INR 1.46 (0.82-1.09) H 07/20/17 06:00 PTT (Actin FS) 37.2 SECONDS (26.9-34.4) H 07/20/17 10:19 Sodium 142 mmol/L (136-145) 07/20/17 06:00 Potassium 3.4 mmol/L (3.5-5.1) L 07/20/17 06:00 Chloride 107 mmol/L (98-107) 07/20/17 06:00 Carbon Dioxide 30 mmol/L (21-32) 07/20/17 06:00 Anion Gap 5 (8-16) L 07/20/17 06:00 BUN 21 mg/dL (7-18) H D 07/20/17 06:00 Creatinine 0.8 mg/dL (0.7-1.3) 07/20/17 06:00 Creat Clearance w eGFR > 60 (>60) 07/20/17 06:00 Random Glucose 79 mg/dL (74-106) D 07/20/17 06:00 Calcium 8.1 mg/dL (8.5-10.1) L 07/20/17 06:00 Magnesium 2.0 mg/dL (1.8-2.4) 07/14/17 11:00 Iron 23 ug/dL (38-169) L 07/14/17 13:30 TIBC 321 ug/dL (250-450) 07/14/17 13:30 Iron Saturation 7 % (15-55) L 07/14/17 13:30 Ferritin 24.673 ng/ml (16.4-293.9) 07/14/17 13:30 Total Bilirubin 0.7 mg/dL (0.2-1.0) D 07/20/17 06:00 Direct Bilirubin < 0.2 mg/dL (0.0-0.2) 07/14/17 11:00 AST 10 U/L (15-37) L D 07/20/17 06:00 ALT 14 U/L (12-78) D 07/20/17 06:00 Alkaline Phosphatase 90 U/L (45-117) 07/20/17 06:00 LD Total 252 U/L (87-241) H 07/19/17 17:54 Total Protein 5.8 g/dl (6.4-8.2) L 07/20/17 06:00 Albumin 3.1 g/dl (3.4-5.0) L 07/20/17 06:00 Stool Occult Blood Positive (NEGATIVE) 07/15/17 06:50 Blood Type A POSITIVE 07/14/17 12:20 Antibody Screen Negative 07/14/17 12:20 Crossmatch See Detail 07/14/17 12:20 Problem List - Problems (1) Acute blood loss anemia Code(s): D62 - ACUTE POSTHEMORRHAGIC ANEMIA (2) Anticoagulation excessive Code(s): [id number] - (3) History of melena Code(s): Z87.19 - PERSONAL HISTORY OF OTHER DISEASES OF THE DIGESTIVE SYSTEM (4) Duodenal ulcer Code(s): K26.9 - DUODENAL ULCER, UNSP ACUTE OR CHRONIC, W/O HEMOR OR PERF Assessment/Plan Coumadin was restarted. Hemoglobin decreased this morning however no stigmata of recent, or ongoing gastrointestinal blood loss. Biopsy results pending. Leukocytosis however does not appear toxic. Continue current care. Oncology follow-up.
--- NOTE | 2017-07-20 13:04 | PN ---
Progress Note, Physician Chief Complaint: marked leukocytosis noted INR is subtherapeutic on heparin IV to [facility] for mechanical valve - Current Medication List Current Medications: Active Medications Acetaminophen (Tylenol -) 650 mg PO Q6H PRN PRN Reason: FEVER Amlodipine Besylate (Norvasc -) 2.5 mg PO BID [facility] Last Admin: 07/20/17 09:13 Dose: 2.5 mg Atorvastatin Calcium (Lipitor -) 40 mg PO HS [facility] Last Admin: 07/19/17 21:07 Dose: 40 mg Docusate Sodium (Colace -) 100 mg PO TID [facility] Last Admin: 07/20/17 05:53 Dose: 100 mg Heparin Sodium (Porcine) (Heparin -) 1,000 unit IVPUSH PRN PRN PRN Reason: Heparin Last Admin: 07/20/17 02:55 Dose: 1,000 unit Heparin Sodium (Porcine) (Heparin -) 5,000 unit IVPUSH PRN PRN PRN Reason: Heparin Last Admin: 07/20/17 11:49 Dose: 5,000 unit Heparin Sodium/Dextrose (Heparin Infusion -) 25,000 units in 500 mls @ 12 mls/ hr IVPB TITR DIANE; 600 UNITS/HR PRN Reason: Protocol Last Titration: 07/20/17 11:50 Dose: 1,150 units/hr, 23 mls/hr Levetiracetam (Keppra -) 500 mg PO BID [facility] Last Admin: 07/20/17 09:13 Dose: 500 mg Nortriptyline HCl (Pamelor -) 10 mg PO HS [facility] Last Admin: 07/19/17 21:08 Dose: 10 mg Pantoprazole Sodium (Protonix -) 40 mg PO BID [facility] Last Admin: 07/20/17 09:14 Dose: 40 mg Prednisone (Deltasone -) 100 mg PO DAILY [facility] Stop: 07/21/17 10:01 Last Admin: 07/20/17 09:14 Dose: 100 mg Solifenacin (Vesicare -) 10 mg PO DAILY [facility] Last Admin: 07/20/17 09:15 Dose: 10 mg Sucralfate (Carafate -) 1 gm PO ACHS [facility] Last Admin: 07/20/17 11:46 Dose: 1 gm Tbo-Filgrastim (Granix -) 480 mcg SQ DAILY [facility] Stop: 07/23/17 10:01 Last Admin: 07/20/17 09:14 Dose: Not Given - Objective Vital Signs: Vital Signs Temperature 98.4 F 07/20/17 09:00 Pulse Rate 80 07/20/17 09:00 Respiratory Rate 20 07/20/17 09:00 Blood Pressure 121/71 07/20/17 09:00 O2 Sat by Pulse Oximetry (%) 95 07/19/17 21:00 Constitutional: Yes: Calm Neck: Yes: Trachea Midline Cardiovascular: Yes: Regular Rate and Rhythm, S1, S2 Respiratory: Yes: CTA Bilaterally Gastrointestinal: Yes: Normal Bowel Sounds, Soft Neurological: Yes: Alert, Oriented Labs: CBC, BMP 07/20/17 06:00 07/20/17 06:00 INR, PTT INR 1.46 (0.82-1.09) H 07/20/17 06:00 Problem List - Problems (1) Acute blood loss anemia Assessment/Plan: s/p EGD/colonoscopy heparin to coumadin slight drop in h/h will keep monitoring seen by GI continue PPI iron panel noted low iron saturation will give iv venofer if ok with heme Code(s): D62 - ACUTE POSTHEMORRHAGIC ANEMIA (2) History of prosthetic aortic valve Assessment/Plan: heparin to couamdin subtherapeatic INR will give coumadin 10mg again tonight Code(s): Z95.2 - PRESENCE OF PROSTHETIC HEART VALVE (3) Lymphoma Assessment/Plan: leukocytosis noted heme follow up granix held today Code(s): C85.90 - NON-HODGKIN LYMPHOMA, UNSPECIFIED, UNSPECIFIED SITE Qualifiers: Lymphoma type: non-Hodgkin Non-Hodgkin lymphoma type: follicular Follicular lymphoma grade: grade II Lymphoma site: lower extremity Qualified Code(s): C82.15 - Follicular lymphoma grade II, lymph nodes of inguinal region and lower limb
[2017-07-20] MEDS ORDERED: PORTA CATH FLUSH 10 ML IVPUSH ONE (14:52)
--- NOTE | 2017-07-20 15:17 | CON.ID ---
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 with follicular lymphoma admitted for chemotherapy on 07/14 cycle 4 he was noted to be anemic and evaluated by GI - he is s/p EGD and colonoscopy 07/17- nonbleeding DU ulcer , multiple polyps on colonoscopy he is s/p chemotherapy on 07/17 and is on high dose prednisone and granix (07/18 and 07/19)- held today for leukocytosis he has a bioprosthetic avr /arch replacement and is currently being bridged from heparin to coumadin no fevers or chills +constipation no melena no cough or SOB no dysuria - History Source History Provided By: Patient, Medical Record Limitations to Obtaining History: No Limitations - Past Medical History 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 Bio AVR - Alcohol/Substance Use Hx Alcohol Use: Yes (SOCIAL) - Smoking History Smoking history: Former smoker Have you smoked in the past 12 months: No Aproximately how many cigarettes per day: 8 If you are a former smoker, when did you quit?: 30 YRS - Social History Usual Living Arrangement: Alone ADL: Independent Place of : [facility] History of Recent Travel: No Home Medications - Allergies Allergies/Adverse Reactions: Allergies Allergy/AdvReac Type Severity Reaction Status Date / Time No Known Drug Allergies Allergy Verified 02/11/17 11:18 - Home Medications Home Medications: Ambulatory Orders Atorvastatin Ca [Lipitor] 40 mg PO HS 01/12/17 Warfarin Sodium [Coumadin] 7.5 mg PO DAILY 01/12/17 Docusate Sodium [Colace -] 100 mg PO TID #90 capsule 01/15/17 Oxycodone HCl/Acetaminophen [Percocet 5-325 mg Tablet] 1 - 2 tab PO Q4H #20 tablet MDD 4 01/15/17 Amlodipine Besylate [Norvasc -] 2.5 mg PO BID tablet 01/21/17 Nortriptyline HCl [Pamelor -] 10 mg PO HS capsule 01/21/17 levETIRAcetam [Keppra -] 500 mg PO BID tablet 01/21/17 Solifenacin Succinate [VESIcare] 10 mg NR DAILY 02/11/17 Acetaminophen [Tylenol .Regular Strength -] 650 mg PO Q6H PRN tablet 02/20/17 Clindamycin [Cleocin -] 450 mg PO BID #14 capsule 02/20/17 Gayle-Cath Flush [Gayle-Cath Flush -] 10 ml IVPUSH PRN PRN ml 02/20/17 Amlodipine Besylate [Norvasc -] 2.5 mg PO DAILY tablet 02/24/17 Clindamycin [Cleocin -] 300 mg PO TID #6 capsule 02/24/17 Docusate Sodium [Colace -] 300 mg PO HS capsule 02/24/17 Nortriptyline HCl [Pamelor -] 10 mg PO HS capsule 02/24/17 Solifenacin Succinate [Vesicare -] 10 mg PO DAILY tab 02/24/17 levETIRAcetam [Keppra -] 500 mg PO BID tablet 02/24/17 Family Disease History - Family Disease History Family History: Denies Review of Systems - Review of Systems Constitutional: reports: No Symptoms. denies: Chills, Diaphoresis, Fever, Loss of Appetite, Night Sweats Eyes: reports: No Symptoms HENT: reports: No Symptoms. denies: Difficult Swallowing, Throat Pain Neck: reports: No Symptoms Cardiovascular: reports: No Symptoms. denies: Chest Pain, Edema Respiratory: reports: No Symptoms. denies: Cough, SOB Gastrointestinal: reports: No Symptoms, Constipation. denies: Diarrhea, Melena , Rectal Bleeding, Vomiting Blood Genitourinary: reports: No Symptoms. denies: Burning, Discharge, Frequency, Hematuria Musculoskeletal: reports: No Symptoms Integumentary: reports: No Symptoms Neurological: reports: No Symptoms Physical Exam Vital Signs: Vital Signs Temperature 98.9 F 07/20/17 13:50 Pulse Rate 81 07/20/17 13:50 Respiratory Rate 18 07/20/17 13:50 Blood Pressure 111/66 07/20/17 13:50 O2 Sat by Pulse Oximetry (%) 95 07/20/17 09:00 Constitutional: Yes: Well Nourished, No Distress, Calm Eyes: Yes: Conjunctiva Clear, EOM Intact HENT: Yes: WNL, Atraumatic, Normocephalic. No: Nasal Congestion, Pharyngeal Erythema, Thrush Neck: Yes: Supple Cardiovascular: Yes: Regular Rate and Rhythm Respiratory: Yes: Regular, CTA Bilaterally Gastrointestinal: Yes: Normal Bowel Sounds, Soft, Abdomen, Obese. No: Tenderness, Tenderness, Epigastrium ...Rectal Exam: Yes: Deferred Renal/: Yes: WNL Musculoskeletal: Yes: WNL Extremities: Yes: WNL, Other (venous stasis changes) Edema: No Integumentary: Yes: WNL Wound/Incision: Yes: Clean/Dry, Other (port site no erythema) Neurological: Yes: Alert, Oriented Psychiatric: Yes: Alert, Oriented Labs: CBC, BMP 07/20/17 06:00 07/20/17 06:00 Imaging - Results Chest X-ray: Report Reviewed Cat Scan: Report Reviewed Problem List - Problems (1) Leukocytosis Code(s): D72.829 - ELEVATED WHITE BLOOD CELL COUNT, UNSPECIFIED (2) Lymphoma Code(s): C85.90 - NON-HODGKIN LYMPHOMA, UNSPECIFIED, UNSPECIFIED SITE Qualifiers: Lymphoma type: non-Hodgkin Non-Hodgkin lymphoma type: follicular Follicular lymphoma grade: grade II Lymphoma site: lower extremity Qualified Code(s): C82.15 - Follicular lymphoma grade II, lymph nodes of inguinal region and lower limb (3) Acute blood loss anemia Code(s): D62 - ACUTE POSTHEMORRHAGIC ANEMIA (4) History of prosthetic aortic valve Code(s): Z95.2 - PRESENCE OF PROSTHETIC HEART VALVE (5) MRSA (methicillin resistant staph aureus) culture positive Code(s): Z22.322 - CARRIER OR SUSPECTED CARRIER OF METHICILLIN RESIS STAPH Assessment/Plan Leukocytosis- suspect multifactorial- on granix and prednisone suspect this is meds but given possible "masking " of fever by steroids will get surveillance blood cultures d/w oncology
[2017-07-20] MEDS ORDERED: WARFARIN NA 10 MG TABLET (FP) PO ONE (18:00)
[2017-07-20] MEDS: ATORVASTATIN CA 40 MG TABLET (FP) PO SCH (21:40)
[2017-07-20] MEDS: NORTRIPTYLINE HCL 10 MG CAPSULE PO SCH (22:12)
--- NOTE | 2017-07-20 23:11 | PN ---
Progress Note (short form) - Note Progress Note: Patient seen and examined Very upset about staying in the hospital for bridging Last Vital Signs Temp Pulse Resp BP Pulse Ox 98.4 F 80 20 127/76 96 07/20/17 22:00 07/20/17 22:00 07/20/17 22:00 07/20/17 22:00 07/20/17 21:00 Cor: RSR, No murmurs, No gallops Lungs: Clear to P&A Abd: Soft, Normal bowel sounds, No organomegaly Ext:edema+ Abnormal Lab Results 07/20/17 07/20/17 07/20/17 06:00 06:00 06:00 WBC 40.3 H* RBC 2.62 L Hgb 7.8 L D Hct 23.7 L RDW 17.0 H Neutrophils % (Manual) 91.0 H Lymphocytes % (Manual) 2.0 L D PT with INR 16.50 H INR 1.46 H PTT (Actin FS) Potassium 3.4 L Anion Gap 5 L BUN 21 H D Calcium 8.1 L AST 10 L D Total Protein 5.8 L Albumin 3.1 L 07/20/17 07/20/17 10:19 18:00 WBC RBC Hgb Hct RDW Neutrophils % (Manual) Lymphocytes % (Manual) PT with INR INR PTT (Actin FS) 37.2 H 51.6 H D Potassium Anion Gap BUN Calcium AST Total Protein Albumin Active Medications Generic Name Dose Route Start Last Admin Trade Name Freq PRN Reason Stop Dose Admin Acetaminophen 650 mg 07/14/17 13:41 Tylenol - PO Q6H PRN FEVER Amlodipine Besylate 2.5 mg 07/14/17 22:00 07/20/17 21:40 Norvasc - PO 2.5 mg BID DIANE Administration Atorvastatin Calcium 40 mg 07/14/17 22:00 07/20/17 21:40 Lipitor - PO 40 mg HS DIANE Administration Docusate Sodium 100 mg 07/14/17 14:00 07/20/17 21:39 Colace - PO 100 mg TID DIANE Administration Heparin Sodium (Porcine) 1,000 unit 07/17/17 16:59 07/20/17 02:55 Heparin - IVPUSH 1,000 unit PRN PRN Administration Heparin Heparin Sodium (Porcine) 5,000 unit 07/17/17 16:59 07/20/17 11:49 Heparin - IVPUSH 5,000 unit PRN PRN Administration Heparin Heparin Sodium/Dextrose 25,000 units in 500 mls @ 12 mls/hr 07/17/17 20:30 21:39 Heparin Infusion - IVPB 1,150 units/hr TITR DIANE 23 mls/hr Protocol Administration 600 UNITS/HR Levetiracetam 500 mg 07/14/17 22:00 07/20/17 21:40 Keppra - PO 500 mg BID DIANE Administration Nortriptyline HCl 10 mg 07/14/17 22:00 07/20/17 22:12 Pamelor - PO 10 mg HS DIANE Administration Pantoprazole Sodium 40 mg 07/18/17 10:00 07/20/17 21:40 Protonix - PO 40 mg BID DIANE Administration Prednisone 100 mg 07/18/17 10:00 07/20/17 09:14 Deltasone - PO 07/21/17 10:01 100 mg DAILY DIANE Administration Solifenacin 10 mg 07/15/17 10:00 07/20/17 09:15 Vesicare - PO 10 mg DAILY DIANE Administration Sucralfate 1 gm 07/17/17 16:30 07/20/17 22:12 Carafate - PO 1 gm ACHS DIANE Administration Tbo-Filgrastim 480 mcg 07/18/17 13:00 07/20/17 09:14 Granix - SQ 07/23/17 10:01 Not Given DAILY DIANE A/P Acute Anemia: EGD with an atypical looking non-bleeding friable ulcer difficult situation as patient has a bioprosthetic heart valve and needs a/c c/w carafate /PPI interim Monitor and transfuse PRBCs FL: CdD4 R-CVP today. hold neupogen today
[2017-07-21] MEDS: SUCRALFATE 1 GM TABLET (FP) PO SCH ×3 (06:17→17:22)
[2017-07-21] MEDS: DOCUSATE SODIUM 100 MG CAPSULE (FP) PO SCH ×2 (06:17→14:19)
[2017-07-21 07:27] LABS: EOS % 0.1 % (0-4.5); HEMATOCRIT 24.7 % (35.4-49); LYMPH % 2.6 % (8-40); MCH 28.6 pg (25.7-33.7); MCHC 32.2 g/dl (32.0-35.9); MEAN CELL VOLUME 88.8 fl (80-96); MEAN PLT VOLUME 8.6 fl (7.5-11.1); MONO % 5.3 % (3.8-10.2); PLATELET COUNT 243 K/MM3 (134-434); RBC 2.79 M/mm3 (4.00-5.60); RDW 16.5 % (11.9-15.9)
[2017-07-21 07:34] LABS: INR 2.31 (0.82-1.09); PROTHROMBIN TIME (PATIENT) 26.1 SEC (9.7-13.0)
[2017-07-21 07:47] LABS: WHITE BLOOD COUNT 31.3 K/mm3 (4.0-10.0)
[2017-07-21 07:55] LABS: CHLORIDE 105 mmol/L (98-107); POTASSIUM 3.5 mmol/L (3.5-5.1); SODIUM 142 mmol/L (136-145)
[2017-07-21 08:04] LABS: ALBUMIN 3.1 g/dl (3.4-5.0); ALK PHOS 82 U/L (45-117); ANION GAP 5 (8-16); BILIRUBIN,TOTAL 0.4 mg/dL (0.2-1.0); BLOOD UREA NITROGEN 20 mg/dL (7-18); CALCIUM 8.2 mg/dL (8.5-10.1); CO2 32 mmol/L (21-32); CREATININE 0.8 mg/dL (0.7-1.3); GLUCOSE,RANDOM 88 mg/dL (74-106); SGOT/AST 9 U/L (15-37); SGPT/ALT 15 U/L (12-78); TOT PROT 5.8 g/dl (6.4-8.2)
[2017-07-21] MEDS: PANTOPRAZOLE 40 MG TABLET (FP) PO SCH (09:32)
[2017-07-21] MEDS: levETIRAcetam 500 MG TABLET (FP) PO SCH (09:32)
[2017-07-21] MEDS: TBO-FILGRASTIM 480 MCG/0.8 ML DISP.SYRIN SQ SCH (09:32)
[2017-07-21] MEDS: amLODIPine BESYLATE 2.5 MG TABLET (FP) PO SCH (09:32)
[2017-07-21] MEDS: predniSONE 20 MG TABLET (UD) PO SCH (09:32)
[2017-07-21] MEDS: SOLIFENACIN SUCCINATE 5 MG TAB (FP) PO SCH (09:33)
--- NOTE | 2017-07-21 10:12 | PATH ---
Surgical Pathology Report Patient Name: [facility]. Rec. #: [id number] /Age/Gender: 1950 (Age: 67) / M Account: [id number] Location: [facility] MED/SURG Taken: 07/17/2017 Received: 07/17/2017 Reported: 07/21/2017 Physicians: Sergio Veras M.D. Specimen(s) Received A: BX DUODENUM B: BX ANTRUM AND BODY C: BX GE JUNCTION D: POLYP ASCENDING COLON E: POLYP ASCENDING COLON F: POLYP SIGMOID G: SIGMOID POLYP Clinical History Anemia Postoperative diagnosis: Duodenal ulcer, colon polyp Final Diagnosis A. DUODENUM, BIOPSY: DUODENAL MUCOSA WITH MODERATE ACUTE AND CHRONIC DUODENITIS. B. ANTRUM AND BODY, BIOPSY: GASTRIC MUCOSA WITH ACTIVE CHRONIC GASTRITIS. IMMUNOSTAIN IS NEGATIVE FOR H. PYLORI ORGANISMS. C. GE JUNCTION, BIOPSY: GASTROESOPHAGEAL JUNCTIONAL MUCOSA WITH MILD CHRONIC INFLAMMATION. NEGATIVE FOR INTESTINAL METAPLASIA. D. ASCENDING COLON POLYP, POLYPECTOMY: TUBULAR ADENOMA. E. ASCENDING COLON POLYP, POLYPECTOMY: TUBULAR ADENOMA. F. SIGMOID POLYP, POLYPECTOMY: HYPERPLASTIC POLYP. G. SIGMOID POLYP, POLYPECTOMY: TUBULAR ADENOMA. Electronically Signed Raven Hugo M.D. Gross Description A. Received in formalin, labeled "biopsy duodenal ulcer" are 3 ying, irregular portions of soft tissue ranging from 0.3-0.4 cm. in greatest dimension. The specimens are submitted in toto in one cassette. B. Received in formalin, labeled "biopsy antrum/body" are 3 ying, irregular portions of soft tissue ranging from 0.1-0.3 cm. in greatest dimension. The specimens are submitted in toto in one cassette. C. Received in formalin, labeled "biopsy GE junction" are 2 ying, irregular portions of soft tissue averaging 0.2 cm. in greatest dimension. The specimens are submitted in toto in one cassette. D. Received in formalin, labeled "biopsy polyp ascending colon" are 5 ying, irregular portions of soft tissue ranging from 0.1-0.3 cm. in greatest dimension. The specimens are submitted in toto in one cassette. E. Received in formalin, labeled "biopsy polyp ascending colon" are 2 ying, irregular portions of soft tissue averaging 0.3 cm. in greatest dimension. The specimens are submitted in toto in one cassette. F. Received in formalin, labeled "biopsy sigmoid polyp" is a ying, irregular portion of soft tissue measuring 0.3 cm. in greatest dimension. The specimen is submitted in toto in one cassette. G. Received in formalin labeled "sigmoid polyp," are 2 ying, polypoid portions of soft tissue measuring 0.4 x 0.3 x 0.2 cm and 1.2 x 0.8 x 0.3 cm. The specimens are submitted in toto in one cassette. 07/17/2017 [facility]07/17/2017
--- NOTE | 2017-07-21 10:20 | PN ---
Progress Note (short form) - Note Progress Note: Pt seen and examined. events noted Constitutional: Yes: Well Nourished, No Distress, Calm Eyes: Yes: Conjunctiva Clear, EOM Intact HENT: Yes: Atraumatic, Normocephalic Neck: Yes: Supple, Trachea Midline Cardiovascular: Yes: Regular Rate and Rhythm Respiratory: Yes: Regular, CTA Bilaterally Gastrointestinal: Yes: Normal Bowel Sounds, Soft, Abdomen, Obese Extremities: Yes: WNL Last Vital Signs Temp Pulse Resp BP Pulse Ox 98.2 F 80 20 152/81 96 07/21/17 06:00 07/21/17 06:00 07/21/17 06:00 07/21/17 06:00 07/20/17 21:00 CBC, BMP 07/21/17 06:00 07/21/17 06:00 Current Medications Generic Name Dose Route Start Last Admin Trade Name Freq PRN Reason Stop Dose Admin Acetaminophen 650 mg 07/14/17 13:41 Tylenol - PO Q6H PRN FEVER Amlodipine Besylate 2.5 mg 07/14/17 22:00 07/21/17 09:32 Norvasc - PO 2.5 mg BID DIANE Administration Atorvastatin Calcium 40 mg 07/14/17 22:00 07/20/17 21:40 Lipitor - PO 40 mg HS DIANE Administration Docusate Sodium 100 mg 07/14/17 14:00 07/21/17 06:17 Colace - PO 100 mg TID DIANE Administration Heparin Sodium (Porcine) 1,000 unit 07/17/17 16:59 07/20/17 02:55 Heparin - IVPUSH 1,000 unit PRN PRN Administration Heparin Heparin Sodium (Porcine) 5,000 unit 07/17/17 16:59 07/20/17 11:49 Heparin - IVPUSH 5,000 unit PRN PRN Administration Heparin Levetiracetam 500 mg 07/14/17 22:00 07/21/17 09:32 Keppra - PO 500 mg BID DIANE Administration Nortriptyline HCl 10 mg 07/14/17 22:00 07/20/17 22:12 Pamelor - PO 10 mg HS DIANE Administration Pantoprazole Sodium 40 mg 07/18/17 10:00 07/21/17 09:32 Protonix - PO 40 mg BID DIANE Administration Solifenacin 10 mg 07/15/17 10:00 07/21/17 09:33 Vesicare - PO 10 mg DAILY DIANE Administration Sucralfate 1 gm 07/17/17 16:30 07/21/17 06:17 Carafate - PO 1 gm ACHS DIANE Administration Anemia: now hgb stable prior to DC, give prbcs surg path: reviewed , no malignancy sent Protonix 40mg bid and Carafate qid to pharmacy Leucocytosis: likely combination of steroids/neupogen stop neupogen finished off steroids. appreciate ID c/s FL: s/p C4 of R-CVP Cardiac co-morbid: now INR therapeutic stop heparin close OP f/u for iv irons/monitor hct d/w pt in detail Problem List - Problems (1) Atrial fibrillation Code(s): I48.91 - UNSPECIFIED ATRIAL FIBRILLATION Qualifiers: Atrial fibrillation type: chronic Qualified Code(s): I48.2 - Chronic atrial fibrillation (2) HTN (hypertension) Code(s): I10 - ESSENTIAL (PRIMARY) HYPERTENSION Qualifiers: Hypertension type: essential hypertension Qualified Code(s): I10 - Essential (primary) hypertension (3) History of prosthetic aortic valve Code(s): Z95.2 - PRESENCE OF PROSTHETIC HEART VALVE (4) Lymphoma Code(s): C85.90 - NON-HODGKIN LYMPHOMA, UNSPECIFIED, UNSPECIFIED SITE Qualifiers: Lymphoma type: non-Hodgkin Non-Hodgkin lymphoma type: follicular Follicular lymphoma grade: grade II Lymphoma site: lower extremity Qualified Code(s): C82.15 - Follicular lymphoma grade II, lymph nodes of inguinal region and lower limb
--- NOTE | 2017-07-21 14:24 | PN ---
Progress Note, Physician Chief Complaint: patient seen and examined plan to dc home today after PRBC INR is therapeutic - Current Medication List Current Medications: Active Medications Acetaminophen (Tylenol -) 650 mg PO Q6H PRN PRN Reason: FEVER Amlodipine Besylate (Norvasc -) 2.5 mg PO BID [facility] Last Admin: 07/21/17 09:32 Dose: 2.5 mg Atorvastatin Calcium (Lipitor -) 40 mg PO HS [facility] Last Admin: 07/20/17 21:40 Dose: 40 mg Docusate Sodium (Colace -) 100 mg PO TID [facility] Last Admin: 07/21/17 14:19 Dose: 100 mg Heparin Sodium (Porcine) (Heparin -) 1,000 unit IVPUSH PRN PRN PRN Reason: Heparin Last Admin: 07/20/17 02:55 Dose: 1,000 unit Heparin Sodium (Porcine) (Heparin -) 5,000 unit IVPUSH PRN PRN PRN Reason: Heparin Last Admin: 07/20/17 11:49 Dose: 5,000 unit Levetiracetam (Keppra -) 500 mg PO BID [facility] Last Admin: 07/21/17 09:32 Dose: 500 mg Nortriptyline HCl (Pamelor -) 10 mg PO HS [facility] Last Admin: 07/20/17 22:12 Dose: 10 mg Pantoprazole Sodium (Protonix -) 40 mg PO BID [facility] Last Admin: 07/21/17 09:32 Dose: 40 mg Solifenacin (Vesicare -) 10 mg PO DAILY [facility] Last Admin: 07/21/17 09:33 Dose: 10 mg Sucralfate (Carafate -) 1 gm PO ACHS [facility] Last Admin: 07/21/17 11:17 Dose: 1 gm - Objective Vital Signs: Vital Signs Temperature 98.0 F 07/21/17 09:00 Pulse Rate 81 07/21/17 09:00 Respiratory Rate 20 07/21/17 09:00 Blood Pressure 133/76 07/21/17 09:00 O2 Sat by Pulse Oximetry (%) 96 07/20/17 21:00 Constitutional: Yes: Calm Neck: Yes: Trachea Midline Cardiovascular: Yes: Regular Rate and Rhythm, S1, S2 Respiratory: Yes: CTA Bilaterally Gastrointestinal: Yes: Normal Bowel Sounds, Soft Neurological: Yes: Alert, Oriented Labs: CBC, BMP 07/21/17 06:00 07/21/17 06:00 INR, PTT INR 2.31 (0.82-1.09) H D 07/21/17 06:00 Problem List - Problems (1) Acute blood loss anemia Assessment/Plan: s/p EGD/colonoscopy heparin to coumadin prbc today seen by GI continue PPI iron panel noted low iron saturation will give iv venofer if ok with heme Code(s): D62 - ACUTE POSTHEMORRHAGIC ANEMIA (2) History of prosthetic aortic valve Assessment/Plan: stop heparin drip INR is therapeutic Code(s): Z95.2 - PRESENCE OF PROSTHETIC HEART VALVE (3) Lymphoma Assessment/Plan: leukocytosis noted heme follow up granix stopped steroids stopped Code(s): C85.90 - NON-HODGKIN LYMPHOMA, UNSPECIFIED, UNSPECIFIED SITE Qualifiers: Lymphoma type: non-Hodgkin Non-Hodgkin lymphoma type: follicular Follicular lymphoma grade: grade II Lymphoma site: lower extremity Qualified Code(s): C82.15 - Follicular lymphoma grade II, lymph nodes of inguinal region and lower limb
[2017-07-21 15:53] VITALS: BMI 34.2
[2017-07-21] MEDS ORDERED: PT OWN MED DRAWER 7, Y5N ONE ×2 (16:49→16:58)
--- NOTE | 2017-07-21 17:24 | DS ---
Physical Examination Vital Signs: Vital Signs Temperature 97.8 F 07/21/17 14:23 Pulse Rate 80 07/21/17 14:23 Respiratory Rate 20 07/21/17 14:23 Blood Pressure 136/68 07/21/17 14:23 O2 Sat by Pulse Oximetry (%) 97 07/21/17 09:00 Constitutional: Yes: Well Nourished, No Distress, Calm Eyes: Yes: Conjunctiva Clear HENT: Yes: Atraumatic, Normocephalic Neck: Yes: Supple Cardiovascular: Yes: Regular Rate and Rhythm Respiratory: Yes: Regular, CTA Bilaterally Gastrointestinal: Yes: Normal Bowel Sounds, Soft Labs: CBC, BMP 07/21/17 06:00 07/21/17 06:00 Discharge Summary Reason For Visit: FOLLICULAR LYMPHOMA (C82.2) Current Active Problems Acute blood loss anemia (Acute) Anticoagulation excessive (Acute) Duodenal ulcer (Acute) Duodenal ulcer (Acute) GI bleeding (Acute) History of melena (Acute) Leukocytosis (Acute) Pre-procedural cardiovascular examination (Acute) Hospital Course: Anemia: s/p EGD/colonsocopy now hgb stable prior to DC, give prbcs surg path: reviewed , no malignancy sent Protonix 40mg bid and Carafate qid to pharmacy Leucocytosis: likely combination of steroids/neupogen stop neupogen finished off steroids. appreciate ID c/s FL: s/p C4 of R-CVP Cardiac co-morbid: now INR therapeutic stop heparin close OP f/u for iv irons/monitor hct d/w pt in detail Condition: Good - Instructions Disposition: HOME - Home Medications Comprehensive Discharge Medication List: Ambulatory Orders Atorvastatin Ca [Lipitor] 40 mg PO HS 01/12/17 Warfarin Sodium [Coumadin] 7.5 mg PO DAILY 01/12/17 Docusate Sodium [Colace -] 100 mg PO TID #90 capsule 01/15/17 Oxycodone HCl/Acetaminophen [Percocet 5-325 mg Tablet] 1 - 2 tab PO Q4H #20 tablet MDD 4 01/15/17 Amlodipine Besylate [Norvasc -] 2.5 mg PO BID tablet 01/21/17 Nortriptyline HCl [Pamelor -] 10 mg PO HS capsule 01/21/17 levETIRAcetam [Keppra -] 500 mg PO BID tablet 01/21/17 Solifenacin Succinate [VESIcare] 10 mg NR DAILY 02/11/17 Acetaminophen [Tylenol .Regular Strength -] 650 mg PO Q6H PRN tablet 02/20/17 Clindamycin [Cleocin -] 450 mg PO BID #14 capsule 02/20/17 Gayle-Cath Flush [Gayle-Cath Flush -] 10 ml IVPUSH PRN PRN ml 02/20/17 Amlodipine Besylate [Norvasc -] 2.5 mg PO DAILY tablet 02/24/17 Clindamycin [Cleocin -] 300 mg PO TID #6 capsule 02/24/17 Docusate Sodium [Colace -] 300 mg PO HS capsule 02/24/17 Nortriptyline HCl [Pamelor -] 10 mg PO HS capsule 02/24/17 Solifenacin Succinate [Vesicare -] 10 mg PO DAILY tab 02/24/17 levETIRAcetam [Keppra -] 500 mg PO BID tablet 02/24/17
--- NOTE | 2017-07-21 17:26 | PN ---
Progress Note (short form) - Note Progress Note: pathology report noted Problem List - Problems (1) Acute blood loss anemia Code(s): D62 - ACUTE POSTHEMORRHAGIC ANEMIA (2) Anticoagulation excessive Code(s): XHU8991 - (3) History of melena Code(s): Z87.19 - PERSONAL HISTORY OF OTHER DISEASES OF THE DIGESTIVE SYSTEM (4) Duodenal ulcer Code(s): K26.9 - DUODENAL ULCER, UNSP ACUTE OR CHRONIC, W/O HEMOR OR PERF
[2017-07-21 18:50] VITALS: BP 115/67; PULSE 81; TEMP 98.2
[2017-07-21] MEDS ORDERED: WARFARIN NA 5 MG TABLET (UD) PO SCH (19:00)
== END 2017-07-21 20:00 | disposition home or self-care (01) | DRG 841 ==
LOC: JONCCHEMO 07:19 → J7W 11:45 → JONCCHEMO 11:46 → J7W 20:05
PROVIDERS: ADMIT Internal Medicine Hematology & Oncology; ATTEND Internal Medicine Hematology & Oncology
PROC: 30233N1 Transfusion of Nonautologous Red Blood Cells into Peripheral Vein, Percutaneous Approach (ICD-10-PCS; 2017-07-14)
PROC: 0DD68ZX Extraction of Stomach, Via Natural or Artificial Opening Endoscopic, Diagnostic (ICD-10-PCS; 2017-07-17)
PROC: 0DD58ZX Extraction of Esophagus, Via Natural or Artificial Opening Endoscopic, Diagnostic (ICD-10-PCS; 2017-07-17)
PROC: 0DBK8ZX Excision of Ascending Colon, Via Natural or Artificial Opening Endoscopic, Diagnostic (ICD-10-PCS; 2017-07-17)
PROC: 0DBN8ZX Excision of Sigmoid Colon, Via Natural or Artificial Opening Endoscopic, Diagnostic (ICD-10-PCS; 2017-07-17)
PROC: 0DD98ZX Extraction of Duodenum, Via Natural or Artificial Opening Endoscopic, Diagnostic (ICD-10-PCS; principal; 2017-07-17 10:30)
DX: C82.15 Follicular lymphoma grade II, lymph nodes of inguinal region and lower limb (principal); I48.1 Persistent atrial fibrillation; D62 Acute posthemorrhagic anemia; K92.2 Gastrointestinal hemorrhage, unspecified; I71.2 Thoracic aortic aneurysm, without rupture; I25.10 Atherosclerotic heart disease of native coronary artery without angina pectoris; K63.5 Polyp of colon; K26.9 Duodenal ulcer, unspecified as acute or chronic, without hemorrhage or perforation; I10 Essential (primary) hypertension; D72.829 Elevated white blood cell count, unspecified; Z79.01 Long term (current) use of anticoagulants; Z95.0 Presence of cardiac pacemaker; Z95.2 Presence of prosthetic heart valve; Z87.891 Personal history of nicotine dependence; Z86.73 Personal history of transient ischemic attack (TIA), and cerebral infarction without residual deficits; Z87.19 Personal history of other diseases of the digestive system; Z22.322 Carrier or suspected carrier of Methicillin resistant Staphylococcus aureus
CPT/HCPCS: 36415; 36430; 71046-TC-FY; 74176-TC; 80053; 80076; 82272; 82728; 83540; 83550; 83615; 83735; 85025; 85027; 85044; 85610; 85730; 86850; 86900; 86901; 86922; 87040; 88305-TC; 93005; 93010; J1100; J1447; J1644; J2469; J7030; J9070; J9310; J9370; P9038; P9058

== ENCOUNTER 2017-08-07 09:49 | Inpatient (IN) | payer OTHER ==
--- NOTE | 2017-08-07 09:57 | PDOC ---
History of Present Illness - General History Source: Patient Exam Limitations: No Limitations - History of Present Illness Initial Comments: 08/07/17 09:57 67y M hx of Ao Valve replacement, CLL, COPD, CHF sp PM, HTN, HL, presents with GIB. The patient states he had some black stool yesterday that was alittle soft , but today had very dark watery stool. Pt denies any abdominal pain, n/v, cp, palpitations, dizziness. Pt states he was admitted recently for anemia and had a transfusion and endoscopy showing an ulcer. Pt notes he is taking coumadin for a prosteteic valve. Social: drinks a few beers daily PMD: Rachel GI: Rito <Adonis Demarco - Last Filed: 08/07/17 12:45> - History of Present Illness Initial Comments: 08/07/17 12:02 Onc: Dr. Dailey <Mitchel Lipscomb - Last Filed: 08/07/17 13:22> - General Stated Complaint: GI BLEED Time Seen by Provider: 08/07/17 09:55 Past History - Past Medical History Anemia: No Asthma: No Cancer: Yes (LYMPHOMA) Cardiac Disorders: Yes (AORTIC VALVE REPLACEMENT, TRANSVERSE ARCH GRAFT) CVA: No COPD: Yes (ABESTOSIS) CHF: Yes DVT: No Dementia: No Diabetes: No GI Disorders: Yes (HIATAL HERNIA) Disorders: No HTN: Yes Hypercholesterolemia: Yes Liver Disease: No Seizures: No Thyroid Disease: No - Surgical History Abdominal Surgery: No Appendectomy: No Cardiac Surgery: Yes (PACEMAKER; VALVE REPLACEMENT,TRANSVERSE ARCH GRAFT) Cholecystectomy: No Lung Surgery: No Neurologic Surgery: No Orthopedic Surgery: No - Immunization History Immunization Up to Date: Yes - Suicide/Smoking/Psychosocial Hx Smoking Status: No Smoking History: Former smoker Have you smoked in the past 12 months: No Number of Cigarettes Smoked Daily: 8 If you are a former smoker, when did you quit?: 30 YRS Cigars Per Day: 1 'Breaking Loose' booklet given: 08/16/14 Hx Alcohol Use: Yes (SOCIAL) Drug/Substance Use Hx: No Substance Use Type: None Hx Substance Use Treatment: No <Adonis Demarco - Last Filed: 08/07/17 12:45> <Mitchel Lipscomb - Last Filed: 08/07/17 13:22> - Past Medical History Allergies/Adverse Reactions: Allergies Allergy/AdvReac Type Severity Reaction Status Date / Time No Known Drug Allergies Allergy Verified 02/11/17 11:18 Home Medications: Ambulatory Orders Atorvastatin Ca [Lipitor] 40 mg PO HS 01/12/17 Warfarin Sodium [Coumadin] 7.5 mg PO DAILY 01/12/17 Amlodipine Besylate [Norvasc -] 2.5 mg PO BID tablet 01/21/17 levETIRAcetam [Keppra -] 500 mg PO BID tablet 02/24/17 Ascorbate Calcium [Vitamin C] 500 mg PO DAILY 08/07/17 Aspirin [ASA -] 81 mg PO DAILY 08/07/17 Mirabegron [Myrbetriq] 25 mg PO DAILY 08/07/17 Multivit-Min/FA/Lycopen/Lutein [Centrum Silver Men Tablet] 1 each PO DAILY 08/07 Pantoprazole Sodium 40 mg PO BID 08/07/17 Zinc Sulfate 220 mg PO DAILY 08/07/17 Review of Systems - Review of Systems Able to Perform ROS?: Yes Comments:: 08/07/17 10:10 Constitutional - no reported Fever, Chills, HEENT: no reported vision changes, sore throat Respiratory: no reported cough, sob, hemoptysis Cardiac: no reported chest pain, palpitations, light headedness, leg swelling Abd/GI: + melena, no reported abd pain, nausea, vomiting, diarrhea : no reported dysuria, frequency, discharge Musculskelatal - no reported back pain, joint swelling skin - no reported bruising, erythema, rash neurological: no reported headache, numbness, focal weakness, tingling, ataxia, hematologic: no reported easy bruising, easy bleeding <Nilam,Adonis - Last Filed: 08/07/17 12:45> *Physical Exam - Physical Exam Comments: 08/07/17 10:13 GENERAL: The patient is awake, alert, and fully oriented, Nontoxic - in no acute distress. HEAD: Normocephalic, atraumatic. EYES: extraocular movements intact, sclera anicteric, conjunctiva clear. ENT: Normal voice, Moist mucous membranes. NECK: Normal range of motion, supple LUNGS: Breath sounds equal, clear to auscultation bilaterally. No wheezes, no rhonchi, no rales. HEART: regular rate, PM in left chest ABDOMEN: Soft, nontender, normoactive bowel sounds. No guarding, no rebound. No CVA tenderness RECTAL: dark maroon colored stool EXTREMITIES: Normal range of motion,trace edema NEUROLOGICAL: No facial assymetry, Normal speech, L sided weakness PSYCH: Normal mood, normal affect. SKIN: Warm, Dry, normal turgor, port in r chest, site c/d/i <Adonis Demarco - Last Filed: 08/07/17 12:45> - Vital Signs Last Vital Signs Temp Pulse Resp BP Pulse Ox 97.8 F 80 18 117/77 98 08/07/17 09:58 08/07/17 10:58 08/07/17 10:58 08/07/17 10:58 08/07/17 10:58 <Mitchel Lipscomb - Last Filed: 08/07/17 13:22> Heart Score/ECG Review - ECG Impressions Comment:: 08/07/17 10:17 Twelve-lead EKG was performed and reviewed by me. Ventircular paced rhythm rate of 80 <Adonis Demarco - Last Filed: 08/07/17 12:45> ED Treatment Course - LABORATORY CBC & Chemistry Diagram: 08/07/17 10:15 08/07/17 10:15 <Adonis Demarco - Last Filed: 08/07/17 12:45> - LABORATORY CBC & Chemistry Diagram: 08/07/17 10:15 08/07/17 10:15 - ADDITIONAL ORDERS Additional order review: Laboratory Results 08/07/17 08/07/17 08/07/17 10:15 10:15 10:15 PT with INR 54.80 H INR 4.85 H* D Sodium 145 Potassium 4.5 Chloride 112 H Carbon Dioxide 24 Anion Gap 9 BUN 41 H D Creatinine 1.4 H D Creat Clearance w eGFR 50.70 Random Glucose 125 H D Calcium 8.1 L Total Bilirubin 0.3 D AST 14 L ALT 13 D Alkaline Phosphatase 75 D Creatine Kinase 25 L Troponin I 0.29 H D Total Protein 6.4 Albumin 3.3 L Stool Occult Blood Positive Blood Type Antibody Screen Crossmatch 08/07/17 10:00 PT with INR INR Sodium Potassium Chloride Carbon Dioxide Anion Gap BUN Creatinine Creat Clearance w eGFR Random Glucose Calcium Total Bilirubin AST ALT Alkaline Phosphatase Creatine Kinase Troponin I Total Protein Albumin Stool Occult Blood Blood Type A POSITIVE Antibody Screen Negative Crossmatch See Detail 08/07/17 10:15 RBC 2.41 L D MCV 84.6 MCHC 31.8 L RDW 17.3 H MPV 8.0 Neutrophils % 86.4 H Lymphocytes % 2.2 L Monocytes % 10.9 H D Eosinophils % 0.1 Basophils % 0.4 D - Medications Given in the ED: ED Medications Discontinued Medications Generic Name Dose Route Start Last Admin Trade Name Freq PRN Reason Stop Dose Admin Pantoprazole Sodium 80 mg/ 100 mls @ 200 mls/hr 08/07/17 09:59 08/07/17 10:19 Sodium Chloride IVPB 08/07/17 10:28 200 mls/hr ONCE ONE Administration <Mitchel Lipscomb - Last Filed: 08/07/17 13:22> Medical Decision Making - Critical Care Time Total Critical Care Time (minutes): 40 Critical Care Statement: The care of this patient involved high complexity decision making to prevent further life threatening deterioration of the patient 's condition and/or to evaluate & treat vital organ system(s) failure or risk of failure. - Medical Decision Making 08/07/17 10:14 suspect GIB, josé manuel in light of confirmed ulcer and being on coumadin pts bp is soft, systolic 100, HR normal no active bleeding currently will start protonix and octreotide due to suspected history of ETOH 08/07/17 12:[address] veras agrees with management will reverse INR will admit to ICU will admit under dr. rachel henson 08/07/17 12:[address] rodgers agree with management Case discussed in detail with admitting physician including history, physical exam and ancillary studies. Admitting physician has assumed care for the patient, will follow all pending diagnostics and will complete the evaluation and treatment. 08/07/17 12:16 no further blood bms here hemodynamically stable <Adonis Demarco - Last Filed: 08/07/17 12:45> - Medical Decision Making 08/07/17 12:[address] Ash. Case discussed with Dr. Veras. 2nd call put out to Dr. Hutchison. 08/07/17 12:35 3rd call put out to Dr. Hutchison. 08/07/17 13:22 4th call put out to Dr. Hutchison <Mitchel Lipscomb - Last Filed: 08/07/17 13:22> *DC/Admit/Observation/Transfer - Discharge Dispostion Decision to Admit order: Yes <Adonis Demarco - Last Filed: 08/07/17 12:45> <Mitchel Lipscomb - Last Filed: 08/07/17 13:22> Diagnosis at time of Disposition: Elevated INR, History of prosthetic aortic valve GIB (gastrointestinal bleeding) Qualifiers: GI bleed type/associated pathology: unspecified gastrointestinal hemorrhage type Qualified Code(s): K92.2 - Gastrointestinal hemorrhage, unspecified - Discharge Dispostion Condition at time of disposition: Critical
[2017-08-07] MEDS ORDERED: PANTOPRAZOLE SODIUM 80 MG in SODIUM CHLORIDE 100 ML IVPB ONE (09:59)
[2017-08-07] MEDS ORDERED: PANTOPRAZOLE SODIUM 40 MG/100 ML BAG IVPB ONE (10:03)
[2017-08-07] MEDS ORDERED: PANTOPRAZOLE SODIUM 40 MG VIAL ONE (10:03)
[2017-08-07 10:24] LABS: BASO % 0.4 % (0-2.0); EOS % 0.1 % (0-4.5); HEMATOCRIT 20.4 % (35.4-49); LYMPH % 2.2 % (8-40); MCH 26.9 pg (25.7-33.7); MCHC 31.8 g/dl (32.0-35.9); MEAN CELL VOLUME 84.6 fl (80-96); MONO % 10.9 % (3.8-10.2); NEUT % 86.4 % (42.8-82.8); PLATELET COUNT 309 K/MM3 (134-434); RBC 2.41 M/mm3 (4.00-5.60); RDW 17.3 % (11.9-15.9); WHITE BLOOD COUNT 19.7 K/mm3 (4.0-10.0)
[2017-08-07 10:26] LABS: HEMOGLOBIN 6.5 GM/dL (11.7-16.9)
[2017-08-07 10:40] LABS: PROTHROMBIN TIME (PATIENT) 54.8 SEC (9.7-13.0)
[2017-08-07] MEDS: PANTOPRAZOLE SODIUM 80 MG in SODIUM CHLORIDE 100 ML IVPB SCH ×2 (10:42→21:00)
[2017-08-07 10:44] LABS: INR 4.85 (0.82-1.09)
[2017-08-07 10:58] LABS: ALBUMIN 3.3 g/dl (3.4-5.0); ANION GAP 9 (8-16); BILIRUBIN,TOTAL 0.3 mg/dL (0.2-1.0); BLOOD UREA NITROGEN 41 mg/dL (7-18); CALCIUM 8.1 mg/dL (8.5-10.1); CHLORIDE 112 mmol/L (98-107); CO2 24 mmol/L (21-32); CREATININE 1.4 mg/dL (0.7-1.3); GLUCOSE,RANDOM 125 mg/dL (74-106); POTASSIUM 4.5 mmol/L (3.5-5.1); SGOT/AST 14 U/L (15-37); SGPT/ALT 13 U/L (12-78); SODIUM 145 mmol/L (136-145); TOT PROT 6.4 g/dl (6.4-8.2)
[2017-08-07 11:00] LABS: ALK PHOS 75 U/L (45-117)
[2017-08-07] MEDS: OCTREOTIDE ACETATE 1,200 MCG in DEXTROSE 5%-WATER - 488 ML IVPB SCH (11:30)
--- NOTE | 2017-08-07 12:01 | CON.GI ---
Consult Consult Specialty:: GI Reason for Consultation:: Acute blood loss anemia. Upper GI bleed. History of duodenal ulcer. - History of Present Illness History of Present Illness: Chart reviewed. The patient was recently admitted for the same. Was found to have nonbleeding ulcer in the second portion of the duodenum. Biopsies came back as benign. Patient has mechanical heart valve and thus requires chronic anticoagulation. Today on evaluation in the ED the patient was found to have INR of 4.7, melanotic stools, and hemoglobin of 6.5 g/dl. He was discharged on July 28 with hemoglobin of 9.4 g/dl. He reports lower abdominal cramps and melanotic diarrhea without nausea, vomiting, abdominal pain, fever, jaundice. Hemodynamically stable. Normal vital signs on arrival. Awake, alert, oriented. In good spirits. - History Source History Provided By: Patient, Transfer Record - Past Medical History COUNTRY DIRECTOR: Yes: CVA Cardio/Vascular: Yes: AFIB, HTN, Other - Alcohol/Substance Use Hx Alcohol Use: Yes (SOCIAL) - Smoking History Smoking history: Former smoker Have you smoked in the past 12 months: No Aproximately how many cigarettes per day: 8 If you are a former smoker, when did you quit?: 30 YRS Home Medications - Allergies Allergies/Adverse Reactions: Allergies Allergy/AdvReac Type Severity Reaction Status Date / Time No Known Drug Allergies Allergy Verified 02/11/17 11:18 - Home Medications Home Medications: Ambulatory Orders Atorvastatin Ca [Lipitor] 40 mg PO HS 01/12/17 Warfarin Sodium [Coumadin] 7.5 mg PO DAILY 01/12/17 Amlodipine Besylate [Norvasc -] 2.5 mg PO BID tablet 01/21/17 levETIRAcetam [Keppra -] 500 mg PO BID tablet 02/24/17 Ascorbate Calcium [Vitamin C] 500 mg PO DAILY 08/07/17 Aspirin [ASA -] 81 mg PO DAILY 08/07/17 Mirabegron [Myrbetriq] 25 mg PO DAILY 08/07/17 Multivit-Min/FA/Lycopen/Lutein [Centrum Silver Men Tablet] 1 each PO DAILY 08/07 Pantoprazole Sodium 40 mg PO BID 08/07/17 Zinc Sulfate 220 mg PO DAILY 08/07/17 Family Disease History - Family Disease History Family History: Unremarkable Review of Systems Findings/Remarks: as per H&P and HPI Physical Exam-GI Vital Signs: Vital Signs Temperature 97.8 F 08/07/17 09:58 Pulse Rate 80 08/07/17 10:58 Respiratory Rate 18 08/07/17 10:58 Blood Pressure 117/77 08/07/17 10:58 O2 Sat by Pulse Oximetry (%) 98 08/07/17 10:58 Constitutional: Yes: No Distress, Calm Eyes: Yes: Conjunctiva Clear HENT: Yes: Atraumatic Neck: Yes: Supple Cardiovascular: Yes: Pulse Irregular Respiratory: Yes: Regular Gastrointestinal Inspection: No: Distention ...Auscultate: Yes: Normoactive Bowel Sounds ...Palpate: Yes: Soft. No: Firm/Rigid, Guarding Neurological: Yes: Alert, Oriented Labs: CBC, BMP 08/07/17 10:15 08/07/17 10:15 INR, PTT INR 4.85 (0.82-1.09) H* D 08/07/17 10:15 Laboratory Last Values WBC 19.7 K/mm3 (4.0-10.0) H D 08/07/17 10:15 RBC 2.41 M/mm3 (4.00-5.60) L D 08/07/17 10:15 Hgb 6.5 GM/dL (11.7-16.9) L* D 08/07/17 10:15 Hct 20.4 % (35.4-49) L D 08/07/17 10:15 MCV 84.6 fl (80-96) 08/07/17 10:15 MCH 26.9 pg (25.7-33.7) 08/07/17 10:15 MCHC 31.8 g/dl (32.0-35.9) L 08/07/17 10:15 RDW 17.3 % (11.9-15.9) H 08/07/17 10:15 Plt Count 309 K/MM3 (134-434) 08/07/17 10:15 MPV 8.0 fl (7.5-11.1) 08/07/17 10:15 Neutrophils % 86.4 % (42.8-82.8) H 08/07/17 10:15 Lymphocytes % 2.2 % (8-40) L 08/07/17 10:15 Monocytes % 10.9 % (3.8-10.2) H D 08/07/17 10:15 Eosinophils % 0.1 % (0-4.5) 08/07/17 10:15 Basophils % 0.4 % (0-2.0) D 08/07/17 10:15 Nucleated RBC % 0 % (0-0) 08/07/17 10:15 PT with INR 54.80 SEC (9.7-13.0) H 08/07/17 10:15 INR 4.85 (0.82-1.09) H* D 08/07/17 10:15 Sodium 145 mmol/L (136-145) 08/07/17 10:15 Potassium 4.5 mmol/L (3.5-5.1) 08/07/17 10:15 Chloride 112 mmol/L (98-107) H 08/07/17 10:15 Carbon Dioxide 24 mmol/L (21-32) 08/07/17 10:15 Anion Gap 9 (8-16) 08/07/17 10:15 BUN 41 mg/dL (7-18) H D 08/07/17 10:15 Creatinine 1.4 mg/dL (0.7-1.3) H D 08/07/17 10:15 Creat Clearance w eGFR 50.70 (>60) 08/07/17 10:15 Random Glucose 125 mg/dL (74-106) H D 08/07/17 10:15 Calcium 8.1 mg/dL (8.5-10.1) L 08/07/17 10:15 Total Bilirubin 0.3 mg/dL (0.2-1.0) D 08/07/17 10:15 AST 14 U/L (15-37) L 08/07/17 10:15 ALT 13 U/L (12-78) D 08/07/17 10:15 Alkaline Phosphatase 75 U/L (45-117) D 08/07/17 10:15 Creatine Kinase 25 IU/L (39-308) L 08/07/17 10:15 Troponin I 0.29 ng/ml (0.00-0.05) H D 08/07/17 10:15 Total Protein 6.4 g/dl (6.4-8.2) 08/07/17 10:15 Albumin 3.3 g/dl (3.4-5.0) L 08/07/17 10:15 Stool Occult Blood Positive (NEGATIVE) 08/07/17 10:15 Blood Type A POSITIVE 08/07/17 10:00 Antibody Screen Negative 08/07/17 10:00 Crossmatch See Detail 08/07/17 10:00 Problem List - Problems (1) Acute blood loss anemia Code(s): D62 - ACUTE POSTHEMORRHAGIC ANEMIA (2) Anticoagulation excessive Code(s): [id number] - (3) Duodenal ulcer Code(s): K26.9 - DUODENAL ULCER, UNSP ACUTE OR CHRONIC, W/O HEMOR OR PERF (4) GI bleeding Code(s): K92.2 - GASTROINTESTINAL HEMORRHAGE, UNSPECIFIED Assessment/Plan A 67-year-old gentleman on Coumadin admitted what appears to be a rebleeding duodenal ulcer considering self elevated INR. No stigmata of acute abdomen, toxicity, or hemodynamic instability. No BMs since admission. Agree with ICU monitoring, PPI drip, octreotide, liquid Carafate, transfuse above hemoglobin of 8 g/dL. Cardiology to evaluate and reverse anticoagulation. No endoscopic intervention at this time due to high INR. Will follow closely. Discussed with the patient.
--- NOTE | 2017-08-07 13:01 | PN ---
Physical Exam: SUBJECTIVE: Patient seen and examined OBJECTIVE: Vital Signs Period Temp Pulse Resp BP Sys/Lugo Pulse Ox Last 24 Hr 97.8 F-98.4 F 80-87 16-18 111-117/56-77 98-100 GENERAL: The patient is awake, alert, and fully oriented, in no acute distress. HEAD: Normal with no signs of trauma. EYES: PERRL, extraocular movements intact, sclera anicteric, conjunctiva clear. No ptosis. ENT: Ears normal, nares patent, oropharynx clear without exudates, moist mucous membranes. NECK: Trachea midline, full range of motion, supple. LUNGS: Breath sounds equal, clear to auscultation bilaterally, no wheezes, no crackles, no accessory muscle use. HEART: Regular rate and rhythm, S1, S2 without murmur, rub or gallop. ABDOMEN: Soft, nontender, nondistended, normoactive bowel sounds, no guarding, no rebound, no hepatosplenomegaly, no masses. EXTREMITIES: 2+ pulses, warm, well-perfused, no edema. NEUROLOGICAL: Cranial nerves II through XII grossly intact. Normal speech, gait not observed. PSYCH: Normal mood, normal affect. SKIN: Warm, dry, normal turgor, no rashes or lesions noted Laboratory Results - last 24 hr 08/07/17 08/07/17 08/07/17 10:00 10:15 10:15 WBC 19.7 H D RBC 2.41 L D Hgb 6.5 L* D Hct 20.4 L D MCV 84.6 MCH 26.9 MCHC 31.8 L RDW 17.3 H Plt Count 309 MPV 8.0 Neutrophils % 86.4 H Lymphocytes % 2.2 L Monocytes % 10.9 H D Eosinophils % 0.1 Basophils % 0.4 D Nucleated RBC % 0 PT with INR 54.80 H INR 4.85 H* D Sodium Potassium Chloride Carbon Dioxide Anion Gap BUN Creatinine Creat Clearance w eGFR Random Glucose Calcium Total Bilirubin AST ALT Alkaline Phosphatase Creatine Kinase Troponin I Total Protein Albumin Stool Occult Blood Blood Type A POSITIVE Antibody Screen Negative Crossmatch See Detail 08/07/17 08/07/17 10:15 10:15 WBC RBC Hgb Hct MCV MCH MCHC RDW Plt Count MPV Neutrophils % Lymphocytes % Monocytes % Eosinophils % Basophils % Nucleated RBC % PT with INR INR Sodium 145 Potassium 4.5 Chloride 112 H Carbon Dioxide 24 Anion Gap 9 BUN 41 H D Creatinine 1.4 H D Creat Clearance w eGFR 50.70 Random Glucose 125 H D Calcium 8.1 L Total Bilirubin 0.3 D AST 14 L ALT 13 D Alkaline Phosphatase 75 D Creatine Kinase 25 L Troponin I 0.29 H D Total Protein 6.4 Albumin 3.3 L Stool Occult Blood Positive Blood Type Antibody Screen Crossmatch Active Medications Generic Name Dose Route Start Last Admin Trade Name Victor Manuelq PRN Reason Stop Dose Admin Pantoprazole Sodium 80 mg/ 100 mls @ 10 mls/hr 08/07/17 10:00 08/07/17 10:42 Sodium Chloride IVPB 10 mls/hr Q10H DIANE Administration 8 MG/HR Octreotide Acetate 1,200 mcg/ 500 mls @ 20.83 mls/hr 08/07/17 11:00 08/07/17 11:30 Dextrose IVPB 20.83 mls/hr ASDIR DIANE Administration 50 MCG/HR Sucralfate 1 gm 08/07/17 13:00 Carafate Oral Suspension - PO Q6HPO DIANE ASSESSMENT/PLAN: 67 year old male presents to the ED following 2 episodes of black tarry stool. H/o aortic valve replacement and duodenal ulcer. Labs significant for supratherapeutic INR (6.4) #1. UPPER GI BLEED - Hemodynamically stable - Continue PPI drip, IV Octreotide, Carafate - Low threshold for transfusion - Hb 8 - Monitor INR - plan for endoscopic intervention pending correction, as no active GI bleed will hold FFP correction at this time - GI following, appreciate recs
--- NOTE | 2017-08-07 13:16 | CONSULT ---
Consultation: REQUESTING PROVIDER: CONSULT REQUEST: GI bleed HISTORY OF PRESENT ILLNESS: 67 year old male presents to ED with melena. PMH significant for Aortic Valve replacement (on Warfarin), Follicular lymphoma, HTN, HLD. Denies any associated abdominal pain, tolerating PO intake. ED course significant for supratherapeutic INR 6.4. REVIEW OF SYSTEMS: CONSTITUTIONAL: Absent: fever, chills, diaphoresis, generalized weakness, malaise, loss of appetite, weight change HEENT: Absent: rhinorrhea, nasal congestion, throat pain, throat swelling, difficulty swallowing, mouth swelling, ear pain, eye pain, visual changes CARDIOVASCULAR: Absent: chest pain, syncope, palpitations, irregular heart rate, lightheadedness , peripheral edema RESPIRATORY: Absent: cough, shortness of breath, dyspnea with exertion, orthopnea, wheezing, stridor, hemoptysis GASTROINTESTINAL: Absent: abdominal pain, abdominal distension, nausea, vomiting, diarrhea, constipation, melena, hematochezia GENITOURINARY: Absent: dysuria, frequency, urgency, hesitancy, hematuria, flank pain, genital pain MUSCULOSKELETAL: Absent: myalgia, arthralgia, joint swelling, back pain, neck pain SKIN: Absent: rash, itching, pallor HEMATOLOGIC/IMMUNOLOGIC: Absent: easy bleeding, easy bruising, lymphadenopathy, frequent infections ENDOCRINE: Absent: unexplained weight gain, unexplained weight loss, heat intolerance, cold intolerance NEUROLOGIC: Absent: headache, focal weakness or paresthesias, dizziness, unsteady gait, seizure, mental status changes, bladder or bowel incontinence PSYCHIATRIC: Absent: anxiety, depression, suicidal or homicidal ideation, hallucinations. PHYSICAL EXAMINATION Vital Signs - 24 hr 08/07/17 08/07/17 08/07/17 09:58 10:58 12:20 Temperature 97.8 F 98.1 F Pulse Rate 87 Pulse Rate [ 80 80 Apical] Respiratory 16 18 18 Rate Blood Pressure 111/66 Blood Pressure 117/77 115/60 [Right Arm] O2 Sat by Pulse 100 98 98 Oximetry (%) 08/07/17 12:35 Temperature 98.4 F Pulse Rate Pulse Rate [ 80 Apical] Respiratory 17 Rate Blood Pressure Blood Pressure 115/56 [Right Arm] O2 Sat by Pulse 98 Oximetry (%) GENERAL: non-toxic appearing, alert CV: S1/S2 Respiratory: CLTA B/L Abdomen: distended, non-tender, (+) BS, no hernia,mass Laboratory Results - last 24 hr 08/07/17 08/07/17 08/07/17 10:00 10:15 10:15 WBC 19.7 H D RBC 2.41 L D Hgb 6.5 L* D Hct 20.4 L D MCV 84.6 MCH 26.9 MCHC 31.8 L RDW 17.3 H Plt Count 309 MPV 8.0 Neutrophils % 86.4 H Lymphocytes % 2.2 L Monocytes % 10.9 H D Eosinophils % 0.1 Basophils % 0.4 D Nucleated RBC % 0 PT with INR 54.80 H INR 4.85 H* D Sodium Potassium Chloride Carbon Dioxide Anion Gap BUN Creatinine Creat Clearance w eGFR Random Glucose Calcium Total Bilirubin AST ALT Alkaline Phosphatase Creatine Kinase Troponin I Total Protein Albumin Stool Occult Blood Blood Type A POSITIVE Antibody Screen Negative Crossmatch See Detail 08/07/17 08/07/17 10:15 10:15 WBC RBC Hgb Hct MCV MCH MCHC RDW Plt Count MPV Neutrophils % Lymphocytes % Monocytes % Eosinophils % Basophils % Nucleated RBC % PT with INR INR Sodium 145 Potassium 4.5 Chloride 112 H Carbon Dioxide 24 Anion Gap 9 BUN 41 H D Creatinine 1.4 H D Creat Clearance w eGFR 50.70 Random Glucose 125 H D Calcium 8.1 L Total Bilirubin 0.3 D AST 14 L ALT 13 D Alkaline Phosphatase 75 D Creatine Kinase 25 L Troponin I 0.29 H D Total Protein 6.4 Albumin 3.3 L Stool Occult Blood Positive Blood Type Antibody Screen Crossmatch Active Medications Generic Name Dose Route Start Last Admin Trade Name Freq PRN Reason Stop Dose Admin Pantoprazole Sodium 80 mg/ 100 mls @ 10 mls/hr 08/07/17 10:00 08/07/17 10:42 Sodium Chloride IVPB 10 mls/hr Q10H DIANE Administration 8 MG/HR Octreotide Acetate 1,200 mcg/ 500 mls @ 20.83 mls/hr 08/07/17 11:00 08/07/17 11:30 Dextrose IVPB 20.83 mls/hr ASDIR DIANE Administration 50 MCG/HR Sucralfate 1 gm 08/07/17 13:00 Carafate Oral Suspension - PO Q6HPO DIANE ASSESSMENT/PLAN: 67 year old male presents to the ED following 2 episodes of black tarry stool. H/o aortic valve replacement and duodenal ulcer. Labs significant for supratherapeutic INR (6.4) #1. UPPER GI BLEED - Hemodynamically stable - Continue PPI drip, IV Octreotide, Carafate - Low threshold for transfusion - Hb 8 - Monitor INR - plan for endoscopic intervention pending correction, as no active GI bleed will hold FFP correction at this time - GI following, appreciate recs #2. HTN - Soft BP @ presentation, SBP 100's - Hold home Amlodipine (2.5 mg BID) #3 H/o Aortic Valve replacement - On Warfarin with INR 6.4 today - Echo showed LVEF 53% with LV hypokinesis - Hold A/C pending INR correction #4 H/o Follicular Lymphoma - S/p chemo, completed 06/2017 - PET CT ([id number] showed partial response in retro-peritoneal area, complete response in inguinal area Prophylaxis SCDs Disposition: transfer to inpatient medicine floor once INR stabilized Visit type - Emergency Visit Emergency Visit: Yes ED Registration Date: 08/07/17 Care time: The patient presented to the Emergency Department on the above date and was hospitalized for further evaluation of their emergent condition. - New Patient This patient is new to me today: Yes Date on this admission: 08/10/17 - Critical Care Critical Care patient: No
--- NOTE | 2017-08-07 14:17 | PN ---
Progress Note (short form) - Note Progress Note: Patient presented to the ER with black tarry stools and near syncope. Briefly, Patient with multiple cardiac co-morbidities. CAD, PPM, Afib, Post re-operative AVR(bio-prosthetic valve) on coumadin. Diagnosis of follicualr lymphoma with high grade transformation in 01/2017. S/p 4cycles of R-CVP PET CT on 06/29/2017: with Partial response in the retro-peritoneal area and complete response in the inguinal area. Most recent admission with acute anemia, found to have a duodenal ulcer , was dc with PPI bid and also carafate qid. Was seen on 07/28 for OP f/u-- CBC stable with INR of 1.8. Was supposed to see on 08/04, but he could not make it to that appt. Now here with melena. Pt seen and examined. Presently in the ER. d/w pt, pts and ER physician . O/E General: In no acute distress. Extremities: No pallor or icterus. Chest:breathing comfortably Abdomen: Non-distended Neuro: Alert, oriented, non-focal. Last Vital Signs Temp Pulse Resp BP Pulse Ox 98.4 F 80 17 115/56 98 08/07/17 12:35 08/07/17 12:35 08/07/17 12:35 08/07/17 12:35 08/07/17 12:35 CBC, BMP 08/07/17 10:15 08/07/17 10:15 Current Medications Generic Name Dose Route Start Last Admin Trade Name Freq PRN Reason Stop Dose Admin Pantoprazole Sodium 80 mg/ 100 mls @ 10 mls/hr 08/07/17 10:00 08/07/17 10:42 Sodium Chloride IVPB 10 mls/hr Q10H DIANE Administration 8 MG/HR Octreotide Acetate 1,200 mcg/ 500 mls @ 20.83 mls/hr 08/07/17 11:00 08/07/17 11:30 Dextrose IVPB 20.83 mls/hr ASDIR DIANE Administration 50 MCG/HR Sucralfate 1 gm 08/07/17 13:00 Carafate Oral Suspension - PO Q6HPO DIANE Acute Anemia: ?recurrent duodenal ulcer bleed appreciate GI c/s will repeat CT a/p when more stable. Tx per GI [place]: s/p C4 of R-CVP. due for C5 on 08/11. will determine pending course Supratherapeutic INR ( melena/symptomatic anemia) for FFP hold off vit K Cardiac Co-morbids: cardiology c/s to weigh in on AC. JOSH: Monitor Cr expect to improve Appreciate ICU level of care.
--- NOTE | 2017-08-07 15:38 | PN ---
Teaching Attending Note Name of Resident: Anny Alfaro ATTENDING PHYSICIAN STATEMENT I saw and evaluated the patient. I reviewed the resident's note and discussed the case with the resident. I agree with the resident's findings and plan as documented. SUBJECTIVE: Patient seen and examined in the ICU. In brief, 67 M, HTN, AFib and Mechanical valve on AC, and former smoker. Admitted via the ER due to melanotic stools, an INR of 4.7, and hemoglobin of 6.5. Denies nausea, vomiting, abdominal pain, or fever. No CP or SOB. Intake & Output 08/04/17 08/05/17 08/06/17 08/07/17 23:59 23:59 23:59 23:59 Weight 241 lb Last Vital Signs Temp Pulse Resp BP Pulse Ox 98 F 78 18 112/80 98 08/07/17 14:00 08/07/17 14:00 08/07/17 14:00 08/07/17 14:00 08/07/17 12:35 Active Medications Pantoprazole Sodium 80 mg/ (Sodium Chloride) 100 mls @ 10 mls/hr IVPB Q10H DIANE Last Admin: 08/07/17 10:42 Dose: 10 mls/hr Octreotide Acetate 1,200 mcg/ (Dextrose) 500 mls @ 20.83 mls/hr IVPB ASDIR DIANE Last Admin: 08/07/17 11:30 Dose: 20.83 mls/hr Sucralfate (Carafate Oral Suspension -) 1 gm PO Q6HPO DIANE Constitutional: Yes: Awake and alert, No Distress Eyes: Yes: Conjunctiva Clear HENT: Yes: Atraumatic Neck: Yes: Supple Cardiovascular: Yes: Pulse Irregular Respiratory: Yes: Clear Gastrointestinal: Soft, (+) BS, NT, ND Neurological: Yes: Alert, Oriented Labs: CBC, BMP 08/07/17 10:15 08/07/17 10:15 INR, PTT INR 4.85 (0.82-1.09) H* D 08/07/17 10:15 Laboratory Last Values WBC 19.7 K/mm3 (4.0-10.0) H D 08/07/17 10:15 RBC 2.41 M/mm3 (4.00-5.60) L D 08/07/17 10:15 Hgb 6.5 GM/dL (11.7-16.9) L* D 08/07/17 10:15 Hct 20.4 % (35.4-49) L D 08/07/17 10:15 MCV 84.6 fl (80-96) 08/07/17 10:15 MCH 26.9 pg (25.7-33.7) 08/07/17 10:15 MCHC 31.8 g/dl (32.0-35.9) L 08/07/17 10:15 RDW 17.3 % (11.9-15.9) H 08/07/17 10:15 Plt Count 309 K/MM3 (134-434) 08/07/17 10:15 MPV 8.0 fl (7.5-11.1) 08/07/17 10:15 Neutrophils % 86.4 % (42.8-82.8) H 08/07/17 10:15 Lymphocytes % 2.2 % (8-40) L 08/07/17 10:15 Monocytes % 10.9 % (3.8-10.2) H D 08/07/17 10:15 Eosinophils % 0.1 % (0-4.5) 08/07/17 10:15 Basophils % 0.4 % (0-2.0) D 08/07/17 10:15 Nucleated RBC % 0 % (0-0) 08/07/17 10:15 PT with INR 54.80 SEC (9.7-13.0) H 08/07/17 10:15 INR 4.85 (0.82-1.09) H* D 08/07/17 10:15 Sodium 145 mmol/L (136-145) 08/07/17 10:15 Potassium 4.5 mmol/L (3.5-5.1) 08/07/17 10:15 Chloride 112 mmol/L (98-107) H 08/07/17 10:15 Carbon Dioxide 24 mmol/L (21-32) 08/07/17 10:15 Anion Gap 9 (8-16) 08/07/17 10:15 BUN 41 mg/dL (7-18) H D 08/07/17 10:15 Creatinine 1.4 mg/dL (0.7-1.3) H D 08/07/17 10:15 Creat Clearance w eGFR 50.70 (>60) 08/07/17 10:15 Random Glucose 125 mg/dL (74-106) H D 08/07/17 10:15 Calcium 8.1 mg/dL (8.5-10.1) L 08/07/17 10:15 Total Bilirubin 0.3 mg/dL (0.2-1.0) D 08/07/17 10:15 AST 14 U/L (15-37) L 08/07/17 10:15 ALT 13 U/L (12-78) D 08/07/17 10:15 Alkaline Phosphatase 75 U/L (45-117) D 08/07/17 10:15 Creatine Kinase 25 IU/L (39-308) L 08/07/17 10:15 Troponin I 0.29 ng/ml (0.00-0.05) H D 08/07/17 10:15 Total Protein 6.4 g/dl (6.4-8.2) 08/07/17 10:15 Albumin 3.3 g/dl (3.4-5.0) L 08/07/17 10:15 Stool Occult Blood Positive (NEGATIVE) 08/07/17 10:15 Blood Type A POSITIVE 08/07/17 10:00 Antibody Screen Negative 08/07/17 10:00 Crossmatch See Detail 08/07/17 10:00 Problem List - Problems (1) Acute blood loss anemia Code(s): D62 - ACUTE POSTHEMORRHAGIC ANEMIA (2) Anticoagulation excessive Code(s): BLX0741 - (3) Duodenal ulcer Code(s): K26.9 - DUODENAL ULCER, UNSP ACUTE OR CHRONIC, W/O HEMOR OR PERF (4) GI bleeding Code(s): K92.2 - GASTROINTESTINAL HEMORRHAGE, UNSPECIFIED Assessment/Plan PPI drip Octreotide Normal transfusion thresholds Noted Heme and Cardiology evaluations were called ICU monitoring Dr Galvez Critical care time spent in reviewing chart, evaluating patient and formulating plan - 36 minutes.
[2017-08-07] MEDS ORDERED: PT OWN MED DRAWER 7, Y5N ONE (19:14)
[2017-08-07] MEDS: SUCRALFATE 1 GM/10 ML UNIT DOSE CUPS PO SCH ×2 (20:06→23:45)
[2017-08-08] MEDS: SUCRALFATE 1 GM/10 ML UNIT DOSE CUPS PO SCH ×3 (05:59→18:26)
[2017-08-08 06:45] LABS: BASO % 0.6 % (0-2.0); EOS % 2.4 % (0-4.5); HEMATOCRIT 19.7 % (35.4-49); MCHC 33.1 g/dl (32.0-35.9); MEAN CELL VOLUME 84.5 fl (80-96); MEAN PLT VOLUME 8.6 fl (7.5-11.1); MONO % 11.6 % (3.8-10.2); NEUT % 76.4 % (42.8-82.8); PLATELET COUNT 193 K/MM3 (134-434); RBC 2.33 M/mm3 (4.00-5.60); RDW 16.6 % (11.9-15.9); WHITE BLOOD COUNT 8.3 K/mm3 (4.0-10.0)
[2017-08-08 06:59] LABS: HEMOGLOBIN 6.5 GM/dL (11.7-16.9)
[2017-08-08] MEDS: PANTOPRAZOLE SODIUM 80 MG in SODIUM CHLORIDE 100 ML IVPB SCH (07:00)
[2017-08-08] MEDS: PANTOPRAZOLE SODIUM 160 MG in DEXTROSE 5%-WATER - 290 ML IVPB SCH (07:00)
[2017-08-08 07:01] LABS: INR 3.6 (0.82-1.09); PROTHROMBIN TIME (PATIENT) 40.7 SEC (9.7-13.0)
--- NOTE | 2017-08-08 07:12 | PN ---
Progress Note (short form) - Note Progress Note: Chief Complaint: Events noted, noted reviewed. Denies any chest pain or dyspnea , History of Present Illness: Seen and examined in the ICU. Full consult dictated - Current Medication List Current Medications Octreotide Acetate 1,200 mcg/ (Dextrose) 500 mls @ 20.83 mls/hr IVPB ASDIR [facility] Last Admin: 08/07/17 11:30 Dose: 20.83 mls/hr Pantoprazole Sodium 160 mg/ (Dextrose) 290 mls @ 14.5 mls/hr IVPB Q20H DIANE Sucralfate (Carafate Oral Suspension -) 1 gm PO Q6HPO [facility] Last Admin: 08/08/17 05:59 Dose: 1 gm - Review of Systems Constitutional: denies: Chills, Fever Cardiovascular: As noted above Respiratory: denies: Cough Or Sputum Production Gastrointestinal: denies: Nausea, Vomiting, Diarrhea, Constipation or Abdominal Pain Genitourinary: denies: Dysuria Neurological: denies: Dizziness or Headaches Endocrine: denies: Intolerance to Cold, Intolerance to Heat - Objective Vital Signs: Last Vital Signs Temp Pulse Resp BP Pulse Ox 98.7 F 69 20 104/70 96 08/08/17 05:55 08/08/17 05:55 08/08/17 05:55 08/08/17 05:55 08/07/17 19:59 Intake & Output 08/05/17 08/06/17 08/07/17 08/08/17 23:59 23:59 23:59 23:59 Intake Total 1381 247 Output Total 550 Balance 831 247 Weight 241 lb 240 lb 7 oz Constitutional: No Distress, Calm, Thin Neck: Supple Negative JVD Respiratory: Diminished Breath Sounds at the Bases Cardiovascular: S1 Mechanical click Regular Rate and Rhythm Grade 2/6 systolic ejection murmur Gastrointestinal: Soft Benign Normal Bowel Sounds Ext: No Edema Labs: Troponin, BNP 08/07/17 10:15 Troponin I 0.29 H D CBC, BMP 08/08/17 05:35 08/08/17 05:35 Hepatic Panel Total Bilirubin 0.5 mg/dL (0.2-1.0) D 08/08/17 05:35 AST 17 U/L (15-37) D 08/08/17 05:35 ALT 16 U/L (12-78) D 08/08/17 05:35 Alkaline Phosphatase 73 U/L (45-117) 08/08/17 05:35 Albumin 3.1 g/dl (3.4-5.0) L 08/08/17 05:35 INR, PTT INR 3.60 (0.82-1.09) H 08/08/17 05:35 Assessment/Plan ASSESSMENT: 1. Upper gastro-intestinal bleed, peptic ulcer disease, profound anemia 2. CAD angina pectoris, evidence of demand ischemic injury related to above 3. Systolic left ventricular dysfunction with chronic class 0-I [employer] [employer] classification left ventricular failure, compensated/euvolemic. 4. Post re-operative AVR (bio-prosthesis) 5. Ascending thoracic aortic aneurysm post-surgical repair 6. AV block post permanent pacemaker implantation [employer] device 7. Paroxysmal atrial fibrillation [id number] score of 5 on A/C therapy with Coumadin 8. History of cerebro-vascular disease 9. HTN 10. Hypercholesterolemia 11. Follicular lymphoma PLAN: 1. Transfuse to maintain Hg equal or > 8.0 2. Avoid Vitamin K administration, if needed if active bleed may give FFP 3. Add B-Blockers hemodynamics permitting 4. Continue Lipitor therapy 5. EGD as per GI service once INR < 2.0, there are no absolute contraindications in proceeding with planned procedure considering that there is no evidence of ACS and/or de-compensated CHf and/or malignant ventricular arrhythmia Stephanie Miranda M.D.
[2017-08-08 07:20] LABS: CHLORIDE 112 mmol/L (98-107); SODIUM 145 mmol/L (136-145)
[2017-08-08 07:30] LABS: ALBUMIN 3.1 g/dl (3.4-5.0); ALK PHOS 73 U/L (45-117); ANION GAP 6 (8-16); BILIRUBIN,TOTAL 0.5 mg/dL (0.2-1.0); BLOOD UREA NITROGEN 38 mg/dL (7-18); CALCIUM 7.9 mg/dL (8.5-10.1); CO2 27 mmol/L (21-32); GLUCOSE,RANDOM 121 mg/dL (74-106); SGOT/AST 17 U/L (15-37); SGPT/ALT 16 U/L (12-78); TOT PROT 5.8 g/dl (6.4-8.2)
--- NOTE | 2017-08-08 08:03 | EKG ---
Test Reason : Blood Pressure : / mmHG Vent. Rate : 080 BPM Atrial Rate : 060 BPM P-R Int : 000 ms QRS Dur : 156 ms QT Int : 458 ms P-R-T Axes : 000 005 071 degrees QTc Int : 528 ms POOR DATA QUALITY, INTERPRETATION MAY BE ADVERSELY AFFECTED Ventricular-paced rhythm ABNORMAL ECG WHEN COMPARED WITH ECG OF 15-JUL-2017 12:25, NO SIGNIFICANT CHANGE WAS FOUND Confirmed by NURIA MELENDEZ MD ([id number]) on 08/08/2017 8:03:17 AM Referred By: Confirmed By:NURIA MELENDEZ MD
--- NOTE | 2017-08-08 08:33 | PN ---
Progress Note (short form) - Note Progress Note: Pulm/CCM SUBJECTIVE: Patient seen and examined in the ICU. -2x PRBC without bump in Hgb, less melena -no acute complaints, hemodynamics stable -awaiting slow correction of INR before any EGD. - No CP or SOB. Intake & Output 08/04/17 08/05/17 08/06/17 08/07/17 23:59 23:59 23:59 23:59 Weight 241 lb Last Vital Signs Temp Pulse Resp BP Pulse Ox 98 F 78 18 112/80 98 08/07/17 14:00 08/07/17 14:00 08/07/17 14:00 08/07/17 14:00 08/07/17 12:35 Active Medications Octreotide Acetate 1,200 mcg/ (Dextrose) 500 mls @ 20.83 mls/hr IVPB ASDIR [facility] Last Admin: 08/07/17 11:30 Dose: 20.83 mls/hr Pantoprazole Sodium 160 mg/ (Dextrose) 290 mls @ 14.5 mls/hr IVPB Q20H [facility] Last Admin: 08/08/17 07:00 Dose: 14.5 mls/hr Oxymetazoline HCl (Afrin -) 2 spray NS BID PRN PRN Reason: NASAL CONGESTION Sucralfate (Carafate Oral Suspension -) 1 gm PO Q6HPO [facility] Last Admin: 08/08/17 05:59 Dose: 1 gm Constitutional: Yes: Awake and alert, No Distress Eyes: Yes: Conjunctiva Clear HENT: Yes: Atraumatic Neck: Yes: Supple Cardiovascular: Yes: Pulse Irregular Respiratory: Yes: Clear Gastrointestinal: Soft, (+) BS, NT, ND Neurological: Yes: Alert, Oriented Labs: Problem List - Problems (1) Acute blood loss anemia Code(s): D62 - ACUTE POSTHEMORRHAGIC ANEMIA (2) Anticoagulation excessive Code(s): [id number] - (3) Duodenal ulcer Code(s): K26.9 - DUODENAL ULCER, UNSP ACUTE OR CHRONIC, W/O HEMOR OR PERF (4) GI bleeding Code(s): K92.2 - GASTROINTESTINAL HEMORRHAGE, UNSPECIFIED Assessment[facility] -likely UGIB -acute anemia PPI drip Octreotide GI following Normal transfusion thresholds , 1 PRBC Now with serial CBCV No acute Correction of INR unless hemorrhagic shock Noted Heme and Cardiology evaluations, appreciate recs ICU monitoring [place] ACNP Critical care time spent in reviewing chart, evaluating patient and formulating plan - 36 minutes.
--- NOTE | 2017-08-08 09:26 | CONS ---
DATE OF CONSULTATION: 08/08/2017 REQUESTING PHYSICIAN: Viridiana Monet MD CHIEF COMPLAINT: Gastrointestinal bleed and cardiovascular evaluation. HISTORY: A 67-year-old male with known history of coronary artery disease, angina pectoris, systolic left ventricular dysfunction with chronic class 0-1 [place] [employer] classification left ventricular failure, paroxysmal atrial fibrillation, CHADS-VASc score of 5 on chronic anticoagulation therapy with Coumadin, aortic valve replacement, bioprosthesis, post aortic root repair, AV block, post permanent pacemaker implantation, hypertensive cardiovascular disease, hypercholesterolemia, follicular lymphoma currently receiving chemotherapy who presented to [facility] with dark stool consistent with gastrointestinal bleed. The patient was recently admitted with a similar presentation at which point he was noted to have evidence of a duodenal ulcer. The patient denied any nausea or vomiting. The patient denied any abdominal discomfort. The patient denies any chest discomfort. The patient denies any dyspnea, orthopnea, paroxysmal or nocturnal dyspnea, or peripheral edema. The patient denies any palpitations, dizziness, lightheadedness, or syncope. The patient reports fatigue and tiredness. PAST MEDICAL HISTORY: Coronary artery disease, angina pectoris, systolic left ventricular dysfunction with chronic class 0-1 [place] [employer] classification left ventricular failure, post reoperative aortic valve replacement, bioprosthesis, post repair of thoracic aortic aneurysm, AV block, post permanent pacemaker implantation, paroxysmal atrial fibrillation, CHADS-VASc score of 5 on chronic anticoagulation therapy on Coumadin, history of cerebrovascular disease, hypertensive cardiovascular disease, hypercholesterolemia, follicular lymphoma currently receiving chemotherapy. SOCIAL HISTORY: Prior history of tobacco abuse. PAST SURGICAL HISTORY: Positive coronary artery disease. ALLERGIES: None reported. MEDICAL THERAPY: At home included vitamin C 500 mg once daily, Ecotrin 81 mg once daily, Lipitor 40 mg once daily, Myrbetriq 25 mg once daily, multivitamin 1 tablet once daily, Protonix 40 mg twice daily, Coumadin 7.5 mg once daily, zinc sulfate 220 mg once daily, amlodipine 2.5 mg twice a day, Keppra 500 mg twice a day. REVIEW OF SYSTEMS: Head and Neck: Denies headache, photophobia, blurring of vision. Respiratory: No cough or sputum production. Cardiovascular: As noted above. Gastrointestinal: As noted above. Genitourinary: No urgency or frequency. Musculoskeletal: No symptoms reported. PHYSICAL EXAMINATION: Vital Signs: Blood pressure 104/70 mmHg, pulse rate 69 beats per minute. Head and Neck: Pupils equal and reactive to light and accommodation. Extraocular muscles are intact. Anicteric sclerae. Negative JVD. No bruits appreciated. Chest: Clear to auscultation and percussion. Cardiovascular: S1, S2 regular. Grade 2/6 to 3/6 systolic ejection murmur. No clicks or gallops. Abdomen: Soft, benign. Normoactive bowel sounds. Extremities: Chronic venostasis changes are noted. Have 1+ distal pulses. No calf tenderness. DIAGNOSTIC DATA: Electrocardiogram reveals baseline artifact, ventricular pacing, appropriate sensing and capture. Chest x-ray report was noted. CBC revealed white cell count 8.3, hemoglobin 6.5, platelet count 193. Basic metabolic profile reveals sodium 145, potassium 4, BUN 38, creatinine 1, glucose 121. INR initially on admission was 4.85, repeat 3.6. ASSESSMENT: 1. Recurrent gastrointestinal bleed, peptic ulcer disease, profound anemia. 2. Coronary artery disease, angina pectoris, stable. 3. Systolic left ventricular dysfunction with chronic class 0-1 [place] [employer] classification left ventricular failure, compensated, euvolemic. 4. Post reoperative aortic valve replacement, bioprosthesis. 5. Ascending thoracic aortic aneurysm post surgical repair. 6. Atrioventricular block post permanent pacemaker implantation. 7. Paroxysmal atrial fibrillation, CHADS2-VASc score of 5 on chronic anticoagulation therapy with Coumadin. Supratherapeutic international normalized ratio. 8. History of cerebrovascular disease. 9. Hypertension. 10. Hypercholesterolemia. 11. History of follicular lymphoma currently receiving physical therapy. RECOMMENDATIONS: 1. Transfusion to maintain hemoglobin equal or greater than 8. 2. Avoidance of vitamin K therapy administration if needed. If evidence of active bleed, may give fresh frozen plasma. 3. Additional beta-blockers hemodynamics permitting. 4. Continuation of statin therapy. 5. Esophagogastroduodenoscopy as per GI service once INR is 2 or less. Thank you for the kind referral. MALDONADO GONZALEZ M.D. MARIMAR/[id number]
--- NOTE | 2017-08-08 10:46 | PN ---
Progress Note (short form) - Note Progress Note: pt seen and examined. ?no budge in Hgb post PRBCs yesterday INR drifting down 3.6 O/E General: In no acute distress. Extremities: No pallor or icterus. Chest:breathing comfortably Abdomen: Non-distended Neuro: Alert, oriented, non-focal. Last Vital Signs Temp Pulse Resp BP Pulse Ox 98.7 F 80 18 102/63 98 08/08/17 10:00 08/08/17 10:00 08/08/17 10:00 08/08/17 10:00 08/08/17 08:00 CBC, BMP 08/08/17 05:35 08/08/17 05:35 Current Medications Generic Name Dose Route Start Last Admin Trade Name Freq PRN Reason Stop Dose Admin Octreotide Acetate 1,200 mcg/ 500 mls @ 20.83 mls/hr 08/07/17 11:00 08/07/17 11:30 Dextrose IVPB 20.83 mls/hr ASDIR DIANE Administration 50 MCG/HR Pantoprazole Sodium 160 mg/ 290 mls @ 14.5 mls/hr 08/08/17 07:00 08/08/17 07: 00 Dextrose IVPB 14.5 mls/hr Q20H DIANE Administration Oxymetazoline HCl 2 spray 08/08/17 08:31 Afrin - NS Q12H PRN NASAL CONGESTION Sucralfate 1 gm 08/07/17 13:00 08/08/17 05:59 Carafate Oral Suspension - PO 1 gm Q6HPO DIANE Administration GIB FL Supratherapeutic INR Cardiac Co-morbids: JOSH -for PRBCs now -check POst transfusion CBC - d/w RN -to consider lasix if in need for further PRBCs -INR drifting down -JOSH resolved. -FL- s/p C4 of R-CVP, with interim PET CT with response. When stable will repeat a CT scan -appreciate GI/ICU/Cardiology consults
[2017-08-08] MEDS ORDERED: FUROSEMIDE 40 MG/4 ML INJECTABLE VIAL IVPUSH ONE ×2 (11:00→21:30)
[2017-08-08] MEDS: OCTREOTIDE ACETATE 1,200 MCG in DEXTROSE 5%-WATER - 488 ML IVPB SCH (11:00)
[2017-08-08] MEDS: OXYMETAZOLINE 0.05% NASAL SOLUTION 15 ML BOTTLE NS PRN (11:25)
--- NOTE | 2017-08-08 11:25 | PN ---
GI Progress Note Subjective: GI follow-up: Dr. Arreola covering for Dr. Veras No acute events No overt bleeding noted Receiving 3rd unit PRBC Received 2 U FFP yesterday patient described black BM's this week as opposed to overt red rectal bleeding - Objective Vital Signs: Vital Signs Temperature 98.7 F 08/08/17 10:00 Pulse Rate 80 08/08/17 10:00 Respiratory Rate 18 08/08/17 10:00 Blood Pressure 102/63 08/08/17 10:00 O2 Sat by Pulse Oximetry (%) 98 08/08/17 08:00 Constitutional: Calm Eyes: No: Sclera Icterus Cardiovascular: Yes: Regular Rate and Rhythm Respiratory: Yes: CTA Bilaterally Gastrointestinal Inspection: No: Distention ...Auscultate: Yes: Normoactive Bowel Sounds ...Palpate: No: Tenderness Edema: No (No LE edema. + stasis ) Neurological: Yes: Alert, Oriented Labs: CBC, BMP 08/08/17 05:35 08/08/17 05:35 INR, PTT INR 3.60 (0.82-1.09) H 08/08/17 05:35 Laboratory Tests 08/07/17 08/08/17 10:15 05:35 INR 4.85 H* D 3.60 H Laboratory Tests 08/07/17 08/08/17 10:15 05:35 BUN 41 H D 38 H Creatinine 1.4 H D 1.0 D Laboratory Tests 08/07/17 10:15 Troponin I 0.29 H D Problem List - Problems (1) GI bleeding Assessment/Plan: Assessment: In setting of supratherapeutic INR with daily aspirin therapy. Hemodynamically stable without overt bleeding reported H/O duodenal ulcer s/p recent EGD (non bleeding duodenal ulcer / colonoscopy with sigmoid snare polypectomies. would expect late post p;olypectomy bleed to present as BRBPR given location of the snare polypectomies in the sigmoid colon. 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 Plan: NPO: OK for meds and ice chips Continue PPI drip. Monitor magnesium levels D/C octreotide drip For repeat EGD when INR normalizes. Likely next week, sooner with correction of INR with FFP is active bleeding noted Will follow with you Code(s): K92.2 - GASTROINTESTINAL HEMORRHAGE, UNSPECIFIED Qualifiers: GI bleed type/associated pathology: unspecified gastrointestinal hemorrhage type Qualified Code(s): K92.2 - Gastrointestinal hemorrhage, unspecified
[2017-08-08 15:57] LABS: BASO % 0.4 % (0-2.0); LYMPH % 5.8 % (8-40); MCH 27.5 pg (25.7-33.7); MCHC 31.8 g/dl (32.0-35.9); MEAN CELL VOLUME 86.7 fl (80-96); MEAN PLT VOLUME 8.6 fl (7.5-11.1); MONO % 11.2 % (3.8-10.2); NEUT % 80.6 % (42.8-82.8); PLATELET COUNT 159 K/MM3 (134-434); RDW 16.6 % (11.9-15.9); WHITE BLOOD COUNT 7.5 K/mm3 (4.0-10.0)
[2017-08-08 16:10] LABS: HEMATOCRIT 17.3 % (35.4-49); HEMOGLOBIN 5.5 GM/dL (11.7-16.9)
--- NOTE | 2017-08-08 18:53 | PN ---
Physical Exam: SUBJECTIVE: Patient seen and examined at bedside in ICU. Feeling fatigued. OBJECTIVE: Vital Signs Period Temp Pulse Resp BP Sys/Lugo Pulse Ox Last 24 Hr 98.0 F-99.6 F 69-80 18-20 83-122/51-70 96-98 GENERAL: The patient is awake, alert, and fully oriented, in no acute distress. LUNGS: Breath sounds equal, clear to auscultation bilaterally, no wheezes, no crackles, no accessory muscle use. HEART: Regular rate and rhythm, S1, S2 +murmur ABDOMEN: Soft, nontender, nondistended, +BS EXTREMITIES: 2+ pulses, warm, well-perfused, no edema. Venous stasis changes b/ l. NEUROLOGICAL: Cranial nerves II through XII grossly intact. Normal speech. SKIN: Pale conjunctiva, skin is warm and dry Laboratory Results - last 24 hr 08/07/17 08/08/17 08/08/17 10:00 05:35 05:35 WBC 8.3 D RBC 2.33 L Hgb 6.5 L* Hct 19.7 L MCV 84.5 MCH 28.0 MCHC 33.1 RDW 16.6 H Plt Count 193 D MPV 8.6 Neutrophils % 76.4 Lymphocytes % 9.0 D Monocytes % 11.6 H Eosinophils % 2.4 D Basophils % 0.6 Nucleated RBC % 0 PT with INR 40.70 H INR 3.60 H Sodium Potassium Chloride Carbon Dioxide Anion Gap BUN Creatinine Creat Clearance w eGFR Random Glucose Calcium Total Bilirubin AST ALT Alkaline Phosphatase Total Protein Albumin Blood Type A POSITIVE Antibody Screen Negative Crossmatch See Detail 08/08/17 08/08/17 05:35 15:50 WBC 7.5 RBC 2.00 L Hgb 5.5 L* D Hct 17.3 L MCV 86.7 MCH 27.5 MCHC 31.8 L RDW 16.6 H Plt Count 159 MPV 8.6 Neutrophils % 80.6 Lymphocytes % 5.8 L D Monocytes % 11.2 H Eosinophils % 2.0 Basophils % 0.4 Nucleated RBC % 0 PT with INR INR Sodium 145 Potassium 4.0 Chloride 112 H Carbon Dioxide 27 Anion Gap 6 L BUN 38 H Creatinine 1.0 D Creat Clearance w eGFR > 60 Random Glucose 121 H Calcium 7.9 L Total Bilirubin 0.5 D AST 17 D ALT 16 D Alkaline Phosphatase 73 Total Protein 5.8 L Albumin 3.1 L Blood Type Antibody Screen Crossmatch Active Medications Generic Name Dose Route Start Last Admin Trade Name Freq PRN Reason Stop Dose Admin Pantoprazole Sodium 160 mg/ 290 mls @ 14.5 mls/hr 08/08/17 07:00 08/08/17 07: 00 Dextrose IVPB 14.5 mls/hr Q20H DIANE Administration Oxymetazoline HCl 2 spray 08/08/17 08:31 08/08/17 11:25 Afrin - NS 2 spray Q12H PRN Administration NASAL CONGESTION Sucralfate 1 gm 08/07/17 13:00 08/08/17 18:26 Carafate Oral Suspension - PO 1 gm Q6HPO DIANE Administration ASSESSMENT/PLAN 67 year-old male with a PMH significant for CAD, tissue aortic valve replacement , atrial fibrillation on coumadin, PPM, duodenal ulcer, and follicular lymphoma s/p R-CVP x 4 cycles. Admitted for upper GI bleed with supratherapeutic INR. Upper GI bleed Duodenal ulcer Acute blood loss anemia in setting of PUD and anticoagulation --Hgb 6.5 on admission, INR 4.85 --08/07 transfused 2U PRBC, 2U FFP with drop in Hgb to 5.5 --today being transfused 3 more units PRBC --protonix drip; carafate suspension --repeat cbc at 3:00am; transfuse <8.0 --avoid vitamin K; FFP if actively bleeding --EGD once INR <2.0 Visit type - Emergency Visit Emergency Visit: Yes ED Registration Date: 08/07/17 Care time: The patient presented to the Emergency Department on the above date and was hospitalized for further evaluation of their emergent condition. - New Patient This patient is new to me today: Yes Date on this admission: 08/09/17 - Critical Care Critical Care patient: Yes Total Critical Care Time (in minutes): 45 Critical Care Statement: The care of this patient involved high complexity decision making to prevent further life threatening deterioration of the patient 's condition and/or to evaluate & treat vital organ system(s) failure or risk of failure.
[2017-08-08 21:04] LABS: PROTHROMBIN TIME (PATIENT) 48.5 SEC (9.7-13.0)
[2017-08-08 21:07] LABS: INR 4.29 (0.82-1.09)
[2017-08-09] MEDS ORDERED: FUROSEMIDE 40 MG/4 ML INJECTABLE VIAL ONE (01:38)
[2017-08-09] MEDS ORDERED: PT OWN MED DRAWER 7, Y5N ONE ×5 (01:39→23:07)
[2017-08-09] MEDS: SUCRALFATE 1 GM/10 ML UNIT DOSE CUPS PO SCH ×5 (01:40→23:10)
[2017-08-09] MEDS: PANTOPRAZOLE SODIUM 160 MG in DEXTROSE 5%-WATER - 290 ML IVPB SCH ×2 (06:08→23:10)
[2017-08-09 06:41] LABS: BASO % 0.6 % (0-2.0); EOS % 2.4 % (0-4.5); HEMATOCRIT 26.3 % (35.4-49); HEMOGLOBIN 8.9 GM/dL (11.7-16.9); LYMPH % 5.2 % (8-40); MCH 28.4 pg (25.7-33.7); MCHC 33.9 g/dl (32.0-35.9); MEAN CELL VOLUME 83.8 fl (80-96); MEAN PLT VOLUME 8.7 fl (7.5-11.1); MONO % 12.7 % (3.8-10.2); NEUT % 79.1 % (42.8-82.8); PLATELET COUNT 205 K/MM3 (134-434); RBC 3.14 M/mm3 (4.00-5.60); RDW 16.2 % (11.9-15.9); WHITE BLOOD COUNT 11.2 K/mm3 (4.0-10.0)
[2017-08-09 06:52] LABS: ALBUMIN 3.5 g/dl (3.4-5.0); ANION GAP 5 (8-16); BLOOD UREA NITROGEN 23 mg/dL (7-18); CALCIUM 8.2 mg/dL (8.5-10.1); CHLORIDE 105 mmol/L (98-107); CO2 34 mmol/L (21-32); GLUCOSE,RANDOM 104 mg/dL (74-106); MAGNESIUM 1.8 mg/dL (1.8-2.4); POTASSIUM 3.2 mmol/L (3.5-5.1); SGOT/AST 17 U/L (15-37); SODIUM 144 mmol/L (136-145)
[2017-08-09 06:54] LABS: ALK PHOS 83 U/L (45-117); BILIRUBIN,TOTAL 0.7 mg/dL (0.2-1.0); CREATININE 0.8 mg/dL (0.7-1.3); LDH 359 U/L (87-241); SGPT/ALT 14 U/L (12-78); TOT PROT 6.7 g/dl (6.4-8.2)
--- NOTE | 2017-08-09 07:17 | PN ---
Progress Note (short form) - Note Progress Note: Chief Complaint: Events noted, noted reviewed. Denies any chest pain or dyspnea , small tarry bowel movement reported, no BRBPR, upset that he remains NPO History of Present Illness: Seen and examined in the ICU. Events noted, noted reviewed. Denies any chest pain or dyspnea, small tarry bowel movement reported, no BRBPR, upset that he remains NPO GI note noted patient requires A/C indefinitely considering his [id number] score of 5, only other alternative if LA appendage is in situ consideration for Watchman device/AGUEDA closure (outpatient) implantation, but since source of bleeding is probably PUD which is treatable I feel that should not be the first option, I would consider DOAC's if INR remains unstable. - Current Medication List Current Medications Pantoprazole Sodium 160 mg/ (Dextrose) 290 mls @ 14.5 mls/hr IVPB Q20H [facility] Last Admin: 08/09/17 06:08 Dose: 14.5 mls/hr Oxymetazoline HCl (Afrin -) 2 spray NS Q12H PRN PRN Reason: NASAL CONGESTION Last Admin: 08/08/17 11:25 Dose: 2 spray Sucralfate (Carafate Oral Suspension -) 1 gm PO Q6HPO [facility] Last Admin: 08/09/17 06:08 Dose: 1 gm - Review of Systems Constitutional: denies: Chills, Fever Cardiovascular: As noted above Respiratory: denies: Cough Or Sputum Production Gastrointestinal: denies: Nausea, Vomiting, Diarrhea, Constipation or Abdominal Pain Genitourinary: denies: Dysuria Neurological: denies: Dizziness or Headaches Endocrine: denies: Intolerance to Cold, Intolerance to Heat - Objective Vital Signs: Last Vital Signs Temp Pulse Resp BP Pulse Ox 98.4 F 82 20 108/71 98 08/09/17 06:12 08/09/17 06:12 08/09/17 06:12 08/09/17 06:12 08/08/17 22:00 Intake & Output 08/06/17 08/07/17 08/08/17 08/09/17 23:59 23:59 23:59 23:59 Intake Total 1381 1275 1332 Output Total 550 Balance 831 1275 1332 Weight 241 lb 240 lb 7 oz 231 lb 11.293 oz Constitutional: No Distress, Calm, Thin Neck: Supple Negative JVD Respiratory: Diminished Breath Sounds at the Bases Cardiovascular: S1 S2 Regular Rate and Rhythm Grade 2/6 systolic ejection murmur Gastrointestinal: Soft Benign Normal Bowel Sounds Ext: No Edema Labs: CBC, BMP 08/09/17 05:30 08/09/17 05:30 INR, PTT INR 4.29 (0.82-1.09) H* 08/08/17 20:30 Assessment/Plan ASSESSMENT: 1. Upper gastro-intestinal bleed, peptic ulcer disease, profound anemia post transfusion 2. CAD angina pectoris, evidence of demand ischemic injury related to above 3. Systolic left ventricular dysfunction with chronic class 0-I [place] [employer] classification left ventricular failure, compensated/euvolemic. 4. Post re-operative AVR (bio-prosthesis) 5. Ascending thoracic aortic aneurysm post-surgical repair 6. AV block post permanent pacemaker implantation [employer] device 7. Paroxysmal atrial fibrillation [id number] score of 5 on A/C therapy with Coumadin on hold, supra-therapeutic INR 8. History of cerebro-vascular disease 9. HTN 10. Hypercholesterolemia 11. Follicular lymphoma receiving chemotherapy PLAN: 1. Transfuse to maintain Hg equal or > 8.0 2. As outlined avoid Vitamin K administration, if needed if active bleed may give FFP 3. Recommend the addition of B-Blockers hemodynamics permitting 4. Continue Lipitor therapy 5. As outlined above in reference to A/C alternatives 6. EGD as per GI service once INR < 2.0, there are no absolute contraindications in proceeding with planned procedure considering that there is no evidence of ACS and/or de-compensated CHF and/or malignant ventricular arrhythmia Stephanie Miranda M.D.
[2017-08-09 08:10] LABS: INR 2.83 (0.82-1.09)
[2017-08-09] MEDS: KCL 10 MEQ IVPB 10 MEQ/100 ML INFUS.BAG IVPB SCH ×2 (09:00→10:00)
[2017-08-09] MEDS: OXYMETAZOLINE 0.05% NASAL SOLUTION 15 ML BOTTLE NS PRN (09:04)
--- NOTE | 2017-08-09 09:42 | PN ---
Progress Note (short form) - Note Progress Note: PULMONARY/CCM Pt seen and examined in the ICU. Transfused 5 units PRBC so far. No bleeding episodes overnight per pt and nursing. No abdominal pain. Denies shortness of breath or chest pain. No dizziness/lightheadedness. Vital Signs Period Temp Pulse Resp BP Sys/Lugo Pulse Ox Last 24 Hr 98.2 F-98.7 F 79-84 18-20 81-122/53-71 96-98 Intake & Output 08/06/17 08/07/17 08/08/17 08/09/17 23:59 23:59 23:59 23:59 Intake Total 1381 1275 1332 Output Total 550 Balance 831 1275 1332 Weight 109.316 kg 109.061 kg 105.1 kg Gen: NAD at rest: Heart: RRR Lung: decreased breath sounds at the bases Abd: soft, nontender Ext: no edema CBC, BMP 08/09/17 05:30 08/09/17 05:30 INR, PTT INR 2.83 (0.82-1.09) H D 08/09/17 07:30 Active Medications Pantoprazole Sodium 160 mg/ (Dextrose) 290 mls @ 14.5 mls/hr IVPB Q20H [facility] Last Admin: 08/09/17 06:08 Dose: 14.5 mls/hr Potassium Chloride (Potassium Chloride 10 Meq Premix Ivpb -) 10 meq in 100 mls @ 100 mls/hr IVPB Q60M [facility] Stop: 08/09/17 10:59 Last Admin: 08/09/17 09:00 Dose: 100 mls/hr Oxymetazoline HCl (Afrin -) 2 spray NS Q12H PRN PRN Reason: NASAL CONGESTION Last Admin: 08/09/17 09:04 Dose: 2 spray Sucralfate (Carafate Oral Suspension -) 1 gm PO Q6HPO [facility] Last Admin: 08/09/17 06:08 Dose: 1 gm A/P GI Bleed likely Upper Acute Blood Loss Anemia Supratherapeutic INR Follicular Lymphoma COPD Paroxysmal Atrial Fibrillation LV Systolic Dysfunction h/o AVR h/o AV Block s/p PPM HTN Hypercholesterolemia - monitor H/H, INR - transfuse as needed - protonix - NPO - IVF - will need EGD - ensure large bore peripheral access - continue ICU monitoring
--- NOTE | 2017-08-09 11:17 | PN ---
GI Progress Note Subjective: GI: For Dr. Veras Hgb 5.5 last night No BM's and viatls have been stable Received 2 U FFP and 2 U PRBC last night - Objective Vital Signs: Vital Signs Temperature 98.1 F 08/09/17 10:00 Pulse Rate 80 08/09/17 10:00 Respiratory Rate 18 08/09/17 10:00 Blood Pressure 115/71 08/09/17 10:00 O2 Sat by Pulse Oximetry (%) 96 08/09/17 08:00 Constitutional: Calm Cardiovascular: Yes: Regular Rate and Rhythm, Murmur Respiratory: Yes: CTA Bilaterally Gastrointestinal Inspection: No: Distention ...Auscultate: Yes: Normoactive Bowel Sounds ...Palpate: Yes: Soft. No: Tenderness ...Rectal Exam: Yes: Deferred (refused by patient) Edema: No (No LE edema) Neurological: Yes: Alert Labs: CBC, BMP 08/09/17 05:30 08/09/17 05:30 INR, PTT INR 2.83 (0.82-1.09) H D 08/09/17 07:30 Problem List - Problems (1) GI bleeding Assessment/Plan: Clinically stable with improvement in H/H, BUN decreasing as well INR improved s/p FFP. Was still 4.5 last night Continue PPI drip, monitor magnesium levels Clear liquids when H/H at least noted to be stable Will follow with you Code(s): K92.2 - GASTROINTESTINAL HEMORRHAGE, UNSPECIFIED Qualifiers: GI bleed type/associated pathology: unspecified gastrointestinal hemorrhage type Qualified Code(s): K92.2 - Gastrointestinal hemorrhage, unspecified
--- NOTE | 2017-08-09 16:02 | PN ---
Progress Note (short form) - Note Progress Note: pt seen and examined. Last evening, CBC noted, d/w RN, repeated INR, given PRBCs and FFP. Labs/notes reviewed from today. Pt feels he is better, he had a BM but not melanotic. O/E General: In no acute distress. Extremities: No pallor or icterus. Chest:breathing comfortably Abdomen: Non-distended Neuro: Alert, oriented, non-focal. Last Vital Signs Temp Pulse Resp BP Pulse Ox 98.2 F 80 18 120/71 96 08/09/17 14:00 08/09/17 14:00 08/09/17 14:00 08/09/17 14:00 08/09/17 08:00 CBC, BMP 08/09/17 05:30 08/09/17 05:30 Current Medications Generic Name Dose Route Start Last Admin Trade Name Freq PRN Reason Stop Dose Admin Pantoprazole Sodium 160 mg/ 290 mls @ 14.5 mls/hr 08/08/17 07:00 08/09/17 06: 08 Dextrose IVPB 14.5 mls/hr Q20H [facility] Administration Oxymetazoline HCl 2 spray 08/08/17 08:31 08/09/17 09:04 Afrin - NS 2 spray Q12H PRN Administration NASAL CONGESTION Sucralfate 1 gm 08/07/17 13:00 08/09/17 12:41 Carafate Oral Suspension - PO 1 gm Q6HPO [facility] Administration GIB--likely--causing acute drop in Crit FL Supratherapeutic INR Cardiac Co-morbidities -Hgb stable today--repeat in the am--ensure stability--GI f/u--procedures as per GI -INR now <3 -FL- s/p C4 of R-CVP, with interim PET CT with response. When stable will repeat a CT scan -replete K- hypoK -started clears per GI. -cardiology f/u noted
[2017-08-09] MEDS ORDERED: KCL 10 MEQ IVPB 10 MEQ/100 ML INFUS.BAG IVPB SCH (16:15)
[2017-08-09] MEDS ORDERED: POTASSIUM CHLORIDE 20 MEQ in SODIUM CHLORIDE 250 ML IVPB ONE (16:15)
[2017-08-09 16:57] LABS: BASO % 0.4 % (0-2.0); EOS % 1.9 % (0-4.5); HEMATOCRIT 30.1 % (35.4-49); HEMOGLOBIN 9.8 GM/dL (11.7-16.9); LYMPH % 5.5 % (8-40); MCH 27.8 pg (25.7-33.7); MCHC 32.5 g/dl (32.0-35.9); MEAN CELL VOLUME 85.6 fl (80-96); MEAN PLT VOLUME 8.9 fl (7.5-11.1); MONO % 11.6 % (3.8-10.2); NEUT % 80.6 % (42.8-82.8); PLATELET COUNT 248 K/MM3 (134-434); RBC 3.51 M/mm3 (4.00-5.60); RDW 16.9 % (11.9-15.9); WHITE BLOOD COUNT 12.7 K/mm3 (4.0-10.0)
[2017-08-09 17:12] LABS: INR 2.89 (0.82-1.09); PROTHROMBIN TIME (PATIENT) 32.7 SEC (9.7-13.0)
--- NOTE | 2017-08-09 18:59 | PN ---
Physical Exam: SUBJECTIVE: Patient seen and examined in ICU. Feeling better. OBJECTIVE: Vital Signs Period Temp Pulse Resp BP Sys/Lugo Pulse Ox Last 24 Hr 98.0 F-98.9 F 80-84 18-20 81-141/53-95 96-98 GENERAL: The patient is awake, alert, and fully oriented, in no acute distress. LUNGS: Breath sounds equal, clear to auscultation bilaterally, no wheezes, no crackles, no accessory muscle use. HEART: Regular rate and rhythm, S1, S2 +murmur ABDOMEN: Soft, nontender, nondistended, +BS EXTREMITIES: 2+ pulses, warm, well-perfused, no edema. Venous stasis changes b/ l. NEUROLOGICAL: Cranial nerves II through XII grossly intact. Normal speech. Laboratory Results - last 24 hr 08/07/17 08/08/17 08/09/17 10:00 20:30 05:30 WBC 11.2 H D RBC 3.14 L D Hgb 8.9 L D Hct 26.3 L D MCV 83.8 MCH 28.4 MCHC 33.9 RDW 16.2 H Plt Count 205 D MPV 8.7 Neutrophils % 79.1 Lymphocytes % 5.2 L Monocytes % 12.7 H Eosinophils % 2.4 Basophils % 0.6 Nucleated RBC % 0 Retic Count PT with INR 48.50 H INR 4.29 H* Sodium Potassium Chloride Carbon Dioxide Anion Gap BUN Creatinine Creat Clearance w eGFR Random Glucose Calcium Magnesium Total Bilirubin AST ALT Alkaline Phosphatase LD Total Total Protein Albumin Blood Type A POSITIVE Antibody Screen Negative Direct Antiglob Test Crossmatch See Detail 08/09/17 08/09/17 08/09/17 05:30 05:30 05:30 WBC RBC Hgb Hct MCV MCH MCHC RDW Plt Count MPV Neutrophils % Lymphocytes % Monocytes % Eosinophils % Basophils % Nucleated RBC % Retic Count 2.77 H D PT with INR INR Sodium 144 Potassium 3.2 L Chloride 105 Carbon Dioxide 34 H D Anion Gap 5 L BUN 23 H D Creatinine 0.8 Creat Clearance w eGFR > 60 Random Glucose 104 Calcium 8.2 L Magnesium 1.8 Total Bilirubin 0.7 D AST 17 ALT 14 Alkaline Phosphatase 83 LD Total 359 H D Total Protein 6.7 Albumin 3.5 Blood Type Antibody Screen Direct Antiglob Test Negative Crossmatch 08/09/17 08/09/17 08/09/17 07:30 15:30 15:30 WBC 12.7 H RBC 3.51 L Hgb 9.8 L D Hct 30.1 L MCV 85.6 MCH 27.8 MCHC 32.5 RDW 16.9 H Plt Count 248 D MPV 8.9 Neutrophils % 80.6 Lymphocytes % 5.5 L Monocytes % 11.6 H Eosinophils % 1.9 Basophils % 0.4 Nucleated RBC % 0 Retic Count PT with INR 32.00 H 32.70 H INR 2.83 H D 2.89 H Sodium Potassium Chloride Carbon Dioxide Anion Gap BUN Creatinine Creat Clearance w eGFR Random Glucose Calcium Magnesium Total Bilirubin AST ALT Alkaline Phosphatase LD Total Total Protein Albumin Blood Type Antibody Screen Direct Antiglob Test Crossmatch Active Medications Generic Name Dose Route Start Last Admin Trade Name Freq PRN Reason Stop Dose Admin Pantoprazole Sodium 160 mg/ 290 mls @ 14.5 mls/hr 08/08/17 07:00 08/09/17 06: 08 Dextrose IVPB 14.5 mls/hr Q20H [facility] Administration Oxymetazoline HCl 2 spray 08/08/17 08:31 08/09/17 09:04 Afrin - NS 2 spray Q12H PRN Administration NASAL CONGESTION Sucralfate 1 gm 08/07/17 13:00 08/09/17 17:45 Carafate Oral Suspension - PO 1 gm Q6HPO [facility] Administration ASSESSMENT/PLAN: 67 year-old male with a PMH significant for CAD, tissue aortic valve replacement , atrial fibrillation on coumadin, PPM, duodenal ulcer, and follicular lymphoma s/p R-CVP x 4 cycles. Admitted for upper GI bleed with supratherapeutic INR. Upper GI bleed Duodenal ulcer Acute blood loss anemia in setting of PUD and anticoagulation --Hgb 6.5 on admission, INR 4.85 --5 transfused 2U PRBC, 2U FFP with drop in Hgb to 5.5 --08/08 transfused 3U PRBC, Hgb-->9.8, hemodynamically stable --continue protonix drip; carafate suspension --serial cbc; transfuse <8.0 --avoid vitamin K; FFP if actively bleeding --INR 2.89; EGD once INR <2.0 Visit type - Emergency Visit Emergency Visit: Yes ED Registration Date: 08/07/17 Care time: The patient presented to the Emergency Department on the above date and was hospitalized for further evaluation of their emergent condition. - New Patient This patient is new to me today: No - Critical Care Critical Care patient: Yes Total Critical Care Time (in minutes): 40 Critical Care Statement: The care of this patient involved high complexity decision making to prevent further life threatening deterioration of the patient 's condition and/or to evaluate & treat vital organ system(s) failure or risk of failure.
[2017-08-10] MEDS ORDERED: PT OWN MED DRAWER 7, Y5N ONE ×3 (05:12→21:09)
[2017-08-10] MEDS: SUCRALFATE 1 GM/10 ML UNIT DOSE CUPS PO SCH ×4 (05:14→23:25)
[2017-08-10 06:46] LABS: BASO % 0.6 % (0-2.0); EOS % 2.8 % (0-4.5); HEMOGLOBIN 9.2 GM/dL (11.7-16.9); LYMPH % 4.9 % (8-40); MCH 28.7 pg (25.7-33.7); MEAN CELL VOLUME 84.5 fl (80-96); MEAN PLT VOLUME 8.9 fl (7.5-11.1); MONO % 12.8 % (3.8-10.2); NEUT % 78.9 % (42.8-82.8); PLATELET COUNT 203 K/MM3 (134-434); RBC 3.19 M/mm3 (4.00-5.60); WHITE BLOOD COUNT 9.6 K/mm3 (4.0-10.0)
[2017-08-10 06:47] LABS: INR 2.74 (0.82-1.09)
--- NOTE | 2017-08-10 07:12 | PN ---
Progress Note (short form) - Note Progress Note: Chief Complaint: Events noted, noted reviewed. Denies any chest pain or dyspnea , no further bleed reported, GI F/U regarding proceeding with EGD History of Present Illness: Seen and examined in the ICU. Events noted, noted reviewed. Denies any chest pain or dyspnea, no further bleed reported, GI F/U regarding proceeding with EGD As outlined in yesterdays note patient requires A/C indefinitely considering his [id number] score of 5, only other alternative if LA appendage is in situ consideration for Watchman device/AGUEDA closure (outpatient) implantation, but since source of bleeding is probably PUD which is treatable I feel that should not be the first option, I would consider DOAC's if INR remains unstable. - Current Medication List Current Medications Pantoprazole Sodium 160 mg/ (Dextrose) 290 mls @ 14.5 mls/hr IVPB Q20H [facility] Last Admin: 08/09/17 23:10 Dose: 14.5 mls/hr Oxymetazoline HCl (Afrin -) 2 spray NS Q12H PRN PRN Reason: NASAL CONGESTION Last Admin: 08/09/17 09:04 Dose: 2 spray Sucralfate (Carafate Oral Suspension -) 1 gm PO Q6HPO [facility] Last Admin: 08/10/17 05:14 Dose: 1 gm - Review of Systems Constitutional: denies: Chills, Fever Cardiovascular: As noted above Respiratory: denies: Cough Or Sputum Production Gastrointestinal: denies: Nausea, Vomiting, Diarrhea, Constipation or Abdominal Pain Genitourinary: denies: Dysuria Neurological: denies: Dizziness or Headaches Endocrine: denies: Intolerance to Cold, Intolerance to Heat - Objective Vital Signs: Last Vital Signs Temp Pulse Resp BP Pulse Ox 98.4 F 80 18 113/68 96 08/10/17 06:00 08/10/17 06:00 08/10/17 06:00 08/10/17 06:00 08/09/17 21:19 Intake & Output 08/07/17 08/08/17 08/09/17 08/10/17 23:59 23:59 23:59 23:59 Intake Total 1381 1275 1706 174 Output Total 550 Balance 831 1275 1706 174 Weight 241 lb 240 lb 7 oz 231 lb 11.293 oz 231 lb 14.821 oz Constitutional: No Distress, Calm, Thin Neck: Supple Negative JVD Respiratory: Diminished Breath Sounds at the Bases Cardiovascular: S1 S2 Regular Rate and Rhythm Grade 2/6 systolic ejection murmur Gastrointestinal: Soft Benign Normal Bowel Sounds Ext: No Edema Labs: CBC, BMP 08/10/17 05:20 INR, PTT INR 2.74 (0.82-1.09) H 08/10/17 05:20 Assessment/Plan ASSESSMENT: 1. Upper gastro-intestinal bleed, peptic ulcer disease, anemia post transfusion 2. CAD angina pectoris, evidence of demand ischemic injury related to above 3. Systolic left ventricular dysfunction with chronic class 0-I [place] [employer] classification left ventricular failure, compensated/euvolemic. 4. Post re-operative AVR (bio-prosthesis) 5. Ascending thoracic aortic aneurysm post-surgical repair 6. AV block post permanent pacemaker implantation [employer] device 7. Paroxysmal atrial fibrillation [id number] score of 5 on A/C therapy with Coumadin on hold, therapeutic INR 8. History of cerebro-vascular disease 9. HTN 10. Hypercholesterolemia 11. Follicular lymphoma receiving chemotherapy PLAN: 1. As outlined monitor CBC and transfuse to maintain Hg equal or > 8.0 2. As outlined in prior notes avoid Vitamin K administration, if needed if active bleed may give FFP 3. Recommend the addition of B-Blockers hemodynamics permitting, initiate Toprol XL with caution 4. Continue Lipitor therapy 5. As outlined above in reference to A/C alternatives 6. EGD as per GI service once INR < 2.0, there are no absolute contraindications in proceeding with planned procedure considering that there is no evidence of ACS and/or de-compensated CHF and/or malignant ventricular arrhythmia Stephanie Miranda M.D.
[2017-08-10 07:16] LABS: CHLORIDE 102 mmol/L (98-107); POTASSIUM 3.3 mmol/L (3.5-5.1); SODIUM 140 mmol/L (136-145)
[2017-08-10 07:25] LABS: ANION GAP 7 (8-16); BLOOD UREA NITROGEN 20 mg/dL (7-18); CALCIUM 8.2 mg/dL (8.5-10.1); CO2 31 mmol/L (21-32); CREATININE 0.8 mg/dL (0.7-1.3); GLUCOSE,RANDOM 109 mg/dL (74-106); MAGNESIUM 1.7 mg/dL (1.8-2.4); PHOSPHOROUS 3.3 mg/dL (2.5-4.9)
--- NOTE | 2017-08-10 07:31 | PN ---
Physical Exam: SUBJECTIVE: Patient awake, last BM yesterday (08/09) non melanotic. Denies CP, SOB. OBJECTIVE: Vital Signs Period Temp Pulse Resp BP Sys/Lugo Pulse Ox Last 24 Hr 98.0 F-98.9 F 80-81 18-20 110-141/55-95 96-96 GENERAL: awake, non-toxic appearing LUNGS: CLTA B/L, no wheeze/rhonci CV: S1/S2, no M/R/G Abdomen: soft, (+) bowel sounds Laboratory Results - last 24 hr 08/09/17 08/09/17 08/09/17 05:30 07:30 15:30 WBC 12.7 H RBC 3.51 L Hgb 9.8 L D Hct 30.1 L MCV 85.6 MCH 27.8 MCHC 32.5 RDW 16.9 H Plt Count 248 D MPV 8.9 Neutrophils % 80.6 Lymphocytes % 5.5 L Monocytes % 11.6 H Eosinophils % 1.9 Basophils % 0.4 Nucleated RBC % 0 PT with INR 32.00 H INR 2.83 H D Direct Antiglob Test Negative 08/09/17 08/10/17 08/10/17 15:30 05:20 05:20 WBC 9.6 RBC 3.19 L Hgb 9.2 L Hct 27.0 L MCV 84.5 MCH 28.7 MCHC 34.0 RDW 17.0 H Plt Count 203 MPV 8.9 Neutrophils % 78.9 Lymphocytes % 4.9 L Monocytes % 12.8 H Eosinophils % 2.8 Basophils % 0.6 Nucleated RBC % 0 PT with INR 32.70 H 31.00 H INR 2.89 H 2.74 H Direct Antiglob Test Active Medications Generic Name Dose Route Start Last Admin Trade Name Freq PRN Reason Stop Dose Admin Pantoprazole Sodium 160 mg/ 290 mls @ 14.5 mls/hr 08/08/17 07:00 08/09/17 23: 10 Dextrose IVPB 14.5 mls/hr Q20H [facility] Administration Metoprolol Succinate 25 mg 08/10/17 10:00 Toprol Xl - PO DAILY [facility] Oxymetazoline HCl 2 spray 08/08/17 08:31 08/09/17 09:04 Afrin - NS 2 spray Q12H PRN Administration NASAL CONGESTION Sucralfate 1 gm 08/07/17 13:00 08/10/17 05:14 Carafate Oral Suspension - PO 1 gm Q6HPO [facility] Administration ASSESSMENT/PLAN: 1. UGI - No active episodes of melena - Plan for EGD when INR <2 2. Acute Blood Loss Anemia 2/2 to UGI - S/p 2 unit transfusion - Continue to monitor 3. H/o Aortic Valve replacement - Hold Warfarin 2/2 to supratherapeutic INR 4. H/o Follicular Lymphoma - Stable - Outpatient oncology follow-up 5. HTN - Continue home medications 6. HLD - Continue home medications Visit type - Emergency Visit Emergency Visit: No - New Patient This patient is new to me today: No - Critical Care Critical Care patient: No
[2017-08-10] MEDS ORDERED: POTASSIUM CHLORIDE 20 MEQ PREMIX IVPB 100 ML IVPB ONE (07:55)
--- NOTE | 2017-08-10 09:20 | PN ---
Progress Note (short form) - Note Progress Note: PULMONARY/CCM Pt seen and examined in the ICU. 24Hr -no further bleeding -brown stool -INR very slowly down trending Vital Signs Temp 98.4 F 08/10/17 06:00 Pulse 80 08/10/17 08:00 Resp 20 08/10/17 08:00 BP 109/70 08/10/17 08:00 Pulse Ox 92 L 08/10/17 07:32 Intake & Output 08/09/17 08/09/17 08/10/17 11:59 23:59 11:59 Intake Total 1532 174 174 Balance 1532 174 174 Weight 105.1 kg 105.2 kg Intake: IV 156 174 174 protonix gtt 156 174 174 IVPB 350 Oral 0 Packed Cells 350 Fresh Frozen Plasma 676 Other: Voiding Method Urinal Urinal Urinal # Unmeasured Voids Void 1 1 2 Bowel Movement No No Weight Measurement Method Built in Bedscale Built in Bedscale Gen: NAD at rest: Heart: RRR Lung: decreased breath sounds at the bases Abd: soft, nontender Ext: no edema Neuro: awake, alert, pleasant CBC, BMP 08/10/17 05:20 08/10/17 05:20 INR, PTT INR 2.74 (0.82-1.09) H 08/10/17 05:20 Active Medications Pantoprazole Sodium 160 mg/ (Dextrose) 290 mls @ 14.5 mls/hr IVPB Q20H [facility] Last Admin: 08/09/17 23:10 Dose: 14.5 mls/hr Potassium Chloride (Potassium Chloride 10 Meq Premix Ivpb -) 10 meq in 100 mls @ 100 mls/hr IVPB Q60M [facility] Stop: 08/10/17 10:14 Metoprolol Succinate (Toprol Xl -) 25 mg PO DAILY [facility] Oxymetazoline HCl (Afrin -) 2 spray NS Q12H PRN PRN Reason: NASAL CONGESTION Last Admin: 08/09/17 09:04 Dose: 2 spray Sucralfate (Carafate Oral Suspension -) 1 gm PO Q6HPO [facility] Last Admin: 08/10/17 05:14 Dose: 1 gm A/P GI Bleed likely Upper Acute Blood Loss Anemia Supratherapeutic INR Follicular Lymphoma COPD Paroxysmal Atrial Fibrillation LV Systolic Dysfunction h/o AVR h/o AV Block s/p PPM HTN Hypercholesterolemia - monitor H/H, INR - normal transfusion thresholds - protonix - Clears today - IVF - will need EGD, GI following, will proceed once INR safe - ensure large bore peripheral access - continue ICU monitoring Miguel SAMUEL [id number]
[2017-08-10] MEDS: KCL 10 MEQ IVPB 10 MEQ/100 ML INFUS.BAG IVPB SCH ×2 (09:22→09:30)
[2017-08-10] MEDS: metoPROLOL SUCCINATE 25 MG TAB.SR.24H (FP) PO SCH (09:22)
[2017-08-10] MEDS ORDERED: metoPROLOL SUCCINATE 25 MG TAB.SR.24H (FP) PO SCH (10:00)
[2017-08-10] MEDS: OXYMETAZOLINE 0.05% NASAL SOLUTION 15 ML BOTTLE NS PRN (10:22)
[2017-08-10] MEDS ORDERED: ALBUTEROL SO4 2.5/IPRATROPIUM 0.5 INH SOL 3 ML VIAL.NEB. NEB PRN (10:23)
--- NOTE | 2017-08-10 10:23 | PN ---
Progress Note (short form) - Note Progress Note: pt seen and examined. Hgb 9.2 ( last three CBC with stable Hgb) INR 2.7 ROS +cough No fevers No further melena O/E General: In no acute distress. Extremities: No pallor or icterus. Chest:Scattered wheezes present Abdomen: Non-distended Neuro: Alert, oriented, non-focal. Last Vital Signs Temp Pulse Resp BP Pulse Ox 98.7 F 80 20 109/70 92 L 08/10/17 09:58 08/10/17 08:00 08/10/17 08:00 08/10/17 08:00 08/10/17 07:32 CBC, BMP 08/10/17 05:20 08/10/17 05:20 Current Medications Generic Name Dose Route Start Last Admin Trade Name Freq PRN Reason Stop Dose Admin Pantoprazole Sodium 160 mg/ 290 mls @ 14.5 mls/hr 08/08/17 07:00 08/09/17 23: 10 Dextrose IVPB 14.5 mls/hr Q20H [facility] Administration Metoprolol Succinate 25 mg 08/10/17 10:00 08/10/17 09:22 Toprol Xl - PO 25 mg DAILY [facility] Administration Oxymetazoline HCl 2 spray 08/08/17 08:31 08/10/17 10:22 Afrin - NS 2 spray Q12H PRN Administration NASAL CONGESTION Sucralfate 1 gm 08/07/17 13:00 08/10/17 05:14 Carafate Oral Suspension - PO 1 gm Q6HPO [facility] Administration UGIB Duodenal ulcer. FL Cardiac Co-morbidities COPD -Hgb stable today -start nebs -INR now <3 -FL- s/p C4 of R-CVP, with interim PET CT with response. When stable will repeat a CT scan -HypoK-repletion -cardiology f/u noted -GI f.u
--- NOTE | 2017-08-10 11:41 | PN ---
GI Progress Note Subjective: Dr. Arreola covering for Dr. Veras No acute events No BM Had clears - Objective Vital Signs: Vital Signs Temperature 98.7 F 08/10/17 09:58 Pulse Rate 80 08/10/17 08:00 Respiratory Rate 20 08/10/17 08:00 Blood Pressure 109/70 08/10/17 08:00 O2 Sat by Pulse Oximetry (%) 92 L 08/10/17 07:32 Constitutional: Calm Eyes: No: Sclera Icterus Cardiovascular: Yes: Regular Rate and Rhythm, Murmur Respiratory: Yes: CTA Bilaterally Gastrointestinal Inspection: No: Distention ...Auscultate: Yes: Normoactive Bowel Sounds ...Palpate: No: Hepatomegaly, Splenomegaly, Tenderness ...Percussion: No: Tympanitic Edema: No (No LE edema) Neurological: Yes: Alert, Oriented Labs: CBC, BMP 08/10/17 05:20 08/10/17 05:20 INR, PTT INR 2.74 (0.82-1.09) H 08/10/17 05:20 Laboratory Tests 08/09/17 08/09/17 08/10/17 05:30 15:30 05:20 Hgb 9.8 L D 9.2 L BUN 23 H D 08/10/17 05:20 Hgb BUN 20 H Problem List - Problems (1) GI bleeding Assessment/Plan: No overt bleeding. hemdynamically stable On PPI drip since thursday night. Can change to PO BID tomorrow in AM For EGD when INR normalizes Dr. Veras resumes care 08/11 Code(s): K92.2 - GASTROINTESTINAL HEMORRHAGE, UNSPECIFIED Qualifiers: GI bleed type/associated pathology: unspecified gastrointestinal hemorrhage type Qualified Code(s): K92.2 - Gastrointestinal hemorrhage, unspecified
--- NOTE | 2017-08-10 11:47 | PN ---
Progress Note, Physician Chief Complaint: EVENTS AND NOTES REVIEWED PATIENT AWAKE ALERT MILD DISTRESS DENIES ABD PAIN NO BM SINCE THURSDAY - Current Medication List Current Medications: Active Medications Albuterol/Ipratropium (Duoneb -) 1 amp NEB Q4H PRN PRN Reason: SHORTNESS OF BREATH Pantoprazole Sodium 160 mg/ (Dextrose) 290 mls @ 14.5 mls/hr IVPB Q20H [facility] Last Admin: 08/09/17 23:10 Dose: 14.5 mls/hr Metoprolol Succinate (Toprol Xl -) 25 mg PO DAILY [facility] Last Admin: 08/10/17 09:22 Dose: 25 mg Oxymetazoline HCl (Afrin -) 2 spray NS Q12H PRN PRN Reason: NASAL CONGESTION Last Admin: 08/10/17 10:22 Dose: 2 spray Sucralfate (Carafate Oral Suspension -) 1 gm PO Q6HPO [facility] Last Admin: 08/10/17 11:24 Dose: 1 gm - Objective Vital Signs: Vital Signs Temperature 98.7 F 08/10/17 09:58 Pulse Rate 80 08/10/17 08:00 Respiratory Rate 20 08/10/17 08:00 Blood Pressure 109/70 08/10/17 08:00 O2 Sat by Pulse Oximetry (%) 92 L 08/10/17 07:32 Constitutional: Yes: Mild Distress Eyes: Yes: WNL HENT: Yes: WNL Neck: Yes: WNL Cardiovascular: Yes: Pulse Irregular, Murmur Respiratory: Yes: WNL Gastrointestinal: Yes: WNL Genitourinary: Yes: WNL Musculoskeletal: Yes: Muscle Weakness Extremities: Yes: WNL Edema: No Peripheral Pulses WNL: Yes Integumentary: Yes: Venous Stasis Changes Wound/Incision: Yes: Clean/Dry Neurological: Yes: Pre-Existing Deficit, Unsteady Gait, Weakness ...Motor Strength: LLE, RLE Psychiatric: Yes: WNL Labs: CBC, BMP 08/10/17 05:20 08/10/17 05:20 INR, PTT INR 2.74 (0.82-1.09) H 08/10/17 05:20 Assessment/Plan GI BLEED OLD CVA HEART PROSTHETIC VALVE WITH COAGULOPATHY PLAN: MONITOR H/H AND INR CAN GIVE FFP PRIOR TO EGD TOMORROW HEME/ONC FOLLOW UP
[2017-08-10] MEDS: MAGNESIUM OXIDE 400 MG TABLET (FP) PO SCH ×2 (17:17→21:47)
[2017-08-10 21:22] VITALS: BMI 31.3
[2017-08-10] MEDS: PANTOPRAZOLE SODIUM 160 MG in DEXTROSE 5%-WATER - 290 ML IVPB SCH (21:44)
[2017-08-11] MEDS: SUCRALFATE 1 GM/10 ML UNIT DOSE CUPS PO SCH ×4 (05:55→23:11)
[2017-08-11 06:37] LABS: MEAN PLT VOLUME 9.3 fl (7.5-11.1); PLATELET COUNT 218 K/MM3 (134-434); RDW 17.2 % (11.9-15.9)
[2017-08-11 06:39] LABS: HEMATOCRIT 27.6 % (35.4-49); HEMOGLOBIN 9.2 GM/dL (11.7-16.9); MCH 28.4 pg (25.7-33.7); MCHC 33.1 g/dl (32.0-35.9); MEAN CELL VOLUME 85.8 fl (80-96); RBC 3.22 M/mm3 (4.00-5.60); WHITE BLOOD COUNT 9.2 K/mm3 (4.0-10.0)
[2017-08-11 06:41] LABS: ANION GAP 6 (8-16); BLOOD UREA NITROGEN 13 mg/dL (7-18); CALCIUM 8.1 mg/dL (8.5-10.1); CHLORIDE 103 mmol/L (98-107); CO2 31 mmol/L (21-32); CREATININE 0.8 mg/dL (0.7-1.3); GLUCOSE,RANDOM 121 mg/dL (74-106); POTASSIUM 3.5 mmol/L (3.5-5.1); SODIUM 140 mmol/L (136-145)
--- NOTE | 2017-08-11 07:06 | PN ---
Progress Note (short form) - Note Progress Note: Chief Complaint: Events noted, noted reviewed. Denies any chest pain or dyspnea , no further bleed reported, GI F/U regarding proceeding with EGD to be performed once INR < 2.0 History of Present Illness: Seen and examined in the ICU. Events noted, noted reviewed. Denies any chest pain or dyspnea, no further bleed reported, GI F/U regarding proceeding with EGD to be performed once INR < 2.0 As outlined in prior notes patient requires A/C indefinitely considering his [id number] score of 5, only other alternative if LA appendage is in situ consideration for Watchman device/AGUEDA closure (outpatient) implantation, but since source of bleeding is probably PUD which is treatable I feel that should not be the first option, I would consider DOAC's if INR remains unstable. - Current Medication List Current Medications Albuterol/Ipratropium (Duoneb -) 1 amp NEB Q4H PRN PRN Reason: SHORTNESS OF BREATH Pantoprazole Sodium 160 mg/ (Dextrose) 290 mls @ 14.5 mls/hr IVPB Q20H [facility] Last Admin: 08/10/17 21:44 Dose: 14.5 mls/hr Magnesium Oxide (Mag-Ox -) 400 mg PO BID [facility] Last Admin: 08/10/17 21:47 Dose: 400 mg Metoprolol Succinate (Toprol Xl -) 25 mg PO DAILY [facility] Last Admin: 08/10/17 09:22 Dose: 25 mg Oxymetazoline HCl (Afrin -) 2 spray NS Q12H PRN PRN Reason: NASAL CONGESTION Last Admin: 08/10/17 10:22 Dose: 2 spray Sucralfate (Carafate Oral Suspension -) 1 gm PO Q6HPO [facility] Last Admin: 08/11/17 05:55 Dose: 1 gm - Review of Systems Constitutional: denies: Chills, Fever Cardiovascular: As noted above Respiratory: denies: Cough Or Sputum Production Gastrointestinal: denies: Nausea, Vomiting, Diarrhea, Constipation or Abdominal Pain Genitourinary: denies: Dysuria Neurological: denies: Dizziness or Headaches Endocrine: denies: Intolerance to Cold, Intolerance to Heat - Objective Vital Signs: Last Vital Signs Temp Pulse Resp BP Pulse Ox 98.6 F 80 20 102/68 95 08/11/17 06:00 05/29/18 06:00 08/11/17 06:00 08/11/17 06:00 08/10/17 19:53 Intake & Output 08/08/17 08/09/17 08/10/17 08/11/17 23:59 23:59 23:59 23:59 Intake Total 1275 1706 2048 274 Output Total 200 Balance 1275 1706 1848 274 Weight 240 lb 7 oz 231 lb 11.293 oz 231 lb 232 lb 7 oz Constitutional: No Distress, Calm, Thin Neck: Supple Negative JVD Respiratory: Diminished Breath Sounds at the Bases Cardiovascular: S1 S2 Regular Rate and Rhythm Grade 2/6 systolic ejection murmur Gastrointestinal: Soft Benign Normal Bowel Sounds Ext: No Edema Labs: CBC, BMP 08/11/17 05:30 INR, PTT INR 2.74 (0.82-1.09) H 08/10/17 05:20 CBC and INR pending from this AM Assessment/Plan ASSESSMENT: 1. Upper gastro-intestinal bleed, peptic ulcer disease, anemia post transfusion 2. CAD angina pectoris, evidence of demand ischemic injury related to above 3. Systolic left ventricular dysfunction with chronic class 0-I [place] [employer] classification left ventricular failure, compensated/euvolemic. 4. Post re-operative AVR (bio-prosthesis) 5. Ascending thoracic aortic aneurysm post-surgical repair 6. AV block post permanent pacemaker implantation [employer] device 7. Paroxysmal atrial fibrillation [id number] score of 5 on A/C therapy with Coumadin on hold, today's INR pending 8. History of cerebro-vascular disease 9. HTN 10. Hypercholesterolemia 11. Follicular lymphoma receiving chemotherapy PLAN: 1. As outlined monitor CBC and transfuse to maintain Hg equal or > 8.0 2. As outlined in prior notes avoid Vitamin K administration, if needed if active bleed may give FFP 3. Continue Toprol XL, hemodynamics permitting 4. Continue Lipitor therapy 5. As outlined above in reference to A/C alternatives 6. EGD as per GI service once INR < 2.0, there are no absolute contraindications in proceeding with planned procedure considering that there is no evidence of ACS and/or de-compensated CHF and/or malignant ventricular arrhythmia Stephanie Miranda M.D.
[2017-08-11 07:20] LABS: INR 2.34 (0.82-1.09); PROTHROMBIN TIME (PATIENT) 26.4 SEC (9.7-13.0)
--- NOTE | 2017-08-11 09:15 | PN ---
Physical Exam: SUBJECTIVE: Patient awake, last BM 2 days previous, non-melanotic. Denies abdominal pain, chest pain, shortness of breath. OBJECTIVE: GENERAL: awake, non-toxic appearing LUNGS: CLTA B/L, no wheeze/rhonci CV: S1/S2, no M/R/G Abdomen: soft, (+) bowel sounds Vital Signs Period Temp Pulse Resp BP Sys/Lugo Pulse Ox Last 24 Hr 98.6 F-99 F 80-84 18-20 93-130/42-92 95 Laboratory Results - last 24 hr 08/07/17 08/10/17 08/11/17 10:00 12:35 05:30 WBC RBC Hgb Hct MCV MCH MCHC RDW Plt Count MPV PT with INR 26.40 H INR 2.34 H Sodium Potassium Chloride Carbon Dioxide Anion Gap BUN Creatinine Random Glucose Calcium Blood Type A POSITIVE A POSITIVE Antibody Screen Negative Negative Crossmatch See Detail 08/11/17 08/11/17 05:30 05:30 WBC 9.2 RBC 3.22 L Hgb 9.2 L Hct 27.6 L MCV 85.8 MCH 28.4 MCHC 33.1 RDW 17.2 H Plt Count 218 MPV 9.3 PT with INR INR Sodium 140 Potassium 3.5 Chloride 103 Carbon Dioxide 31 Anion Gap 6 L BUN 13 D Creatinine 0.8 Random Glucose 121 H Calcium 8.1 L Blood Type Antibody Screen Crossmatch Active Medications Generic Name Dose Route Start Last Admin Trade Name Freq PRN Reason Stop Dose Admin Albuterol/Ipratropium 1 amp 08/10/17 10:23 Duoneb - NEB Q4H PRN SHORTNESS OF BREATH Pantoprazole Sodium 160 mg/ 290 mls @ 14.5 mls/hr 08/08/17 07:00 08/10/17 21: 44 Dextrose IVPB 14.5 mls/hr Q20H [facility] Administration Magnesium Oxide 400 mg 08/10/17 12:00 08/10/17 21:47 Mag-Ox - PO 400 mg BID [facility] Administration Metoprolol Succinate 25 mg 08/10/17 10:00 08/10/17 09:22 Toprol Xl - PO 25 mg DAILY [facility] Administration Oxymetazoline HCl 2 spray 08/08/17 08:31 08/10/17 10:22 Afrin - NS 2 spray Q12H PRN Administration NASAL CONGESTION Sucralfate 1 gm 08/07/17 13:00 08/11/17 05:55 Carafate Oral Suspension - PO 1 gm Q6HPO [facility] Administration ASSESSMENT/PLAN: 67 year old male presented w/melena. EGD pending correction of supratherapeutic INR 1. UGI - No active episodes of melena since admission - INR 2.34 today (08/11) <-- 4.85 @ admission - Plan for EGD when INR <2, likely tomorrow - Patient remains on CLD 2. Acute Blood Loss Anemia 2/2 to UGI - S/p 2 unit transfusion - Hb 9.2 today (08/11) - Continue to monitor with low threshold (Hb +/< 8) for transfusion - As no melena, switch to PO Protonix 3. H/o Aortic Valve replacement - holding Warfarin as INR remains supratherapeutic 4. H/o Follicular Lymphoma - S/p chemo completed in 06/2017 5. HTN - BP well controlled during admission - Continue daily Toprol FEN Continue to monitor CLD Disposition: Patient stable for transfer to inpatient medicine floor Visit type - Emergency Visit Emergency Visit: No - New Patient This patient is new to me today: No - Critical Care Critical Care patient: No
[2017-08-11] MEDS: MAGNESIUM OXIDE 400 MG TABLET (FP) PO SCH ×2 (09:21→21:02)
[2017-08-11] MEDS: metoPROLOL SUCCINATE 25 MG TAB.SR.24H (FP) PO SCH (09:22)
--- NOTE | 2017-08-11 11:13 | PN ---
Teaching Attending Note Name of Resident: Anny Alfaro ATTENDING PHYSICIAN STATEMENT I saw and evaluated the patient. I reviewed the resident's note and discussed the case with the resident. I agree with the resident's findings and plan as documented. SUBJECTIVE: Pt seen and examined in the ICU. No further bleeding. Tolerating clears. H/H has been stable. OBJECTIVE: Vital Signs Period Temp Pulse Resp BP Sys/Lugo Pulse Ox Last 24 Hr 98.6 F-99.1 F 80-84 18-20 93-130/42-92 95 Intake & Output 08/08/17 08/09/17 08/10/17 08/11/17 23:59 23:59 23:59 23:59 Intake Total 1275 1706 2048 274 Output Total 200 Balance 1275 1706 1848 274 Weight 109.061 kg 105.1 kg 104.78 kg 105.432 kg Gen: NAD at rest Heart: RRR Lung: decreased breath sounds at the bases Abd: soft, nontender Ext: no edema CBC, BMP 08/11/17 05:30 08/11/17 05:30 Active Medications Albuterol/Ipratropium (Duoneb -) 1 amp NEB Q4H PRN PRN Reason: SHORTNESS OF BREATH Magnesium Oxide (Mag-Ox -) 400 mg PO BID [facility] Last Admin: 08/11/17 09:21 Dose: 400 mg Metoprolol Succinate (Toprol Xl -) 25 mg PO DAILY [facility] Last Admin: 08/11/17 09:22 Dose: 25 mg Oxymetazoline HCl (Afrin -) 2 spray NS Q12H PRN PRN Reason: NASAL CONGESTION Last Admin: 08/10/17 10:22 Dose: 2 spray Pantoprazole Sodium (Protonix -) 40 mg PO BID [facility] Sucralfate (Carafate Oral Suspension -) 1 gm PO Q6HPO [facility] Last Admin: 08/11/17 05:55 Dose: 1 gm ASSESSMENT AND PLAN: GI Bleed likely Upper Acute Blood Loss Anemia Supratherapeutic INR Follicular Lymphoma COPD Paroxysmal Atrial Fibrillation LV Systolic Dysfunction h/o AVR h/o AV Block s/p PPM HTN Hypercholesterolemia - monitor H/H, INR - transfuse as needed - protonix - holding anticoagulation - PO per GI - will need EGD - ensure large bore peripheral access - can monitor on telemetry
--- NOTE | 2017-08-11 11:52 | PN ---
Progress Note, Physician Chief Complaint: patient seen and examined in ICU h/h stable s/p tranfusion on admission off warfarin supratherapeutic INR got FFP nowINR is 2.34 awaiting EGD once INR is < 2 no more melanotic stools - Current Medication List Current Medications: Active Medications Albuterol/Ipratropium (Duoneb -) 1 amp NEB Q4H PRN PRN Reason: SHORTNESS OF BREATH Magnesium Oxide (Mag-Ox -) 400 mg PO BID [facility] Last Admin: 08/11/17 09:21 Dose: 400 mg Metoprolol Succinate (Toprol Xl -) 25 mg PO DAILY [facility] Last Admin: 08/11/17 09:22 Dose: 25 mg Oxymetazoline HCl (Afrin -) 2 spray NS Q12H PRN PRN Reason: NASAL CONGESTION Last Admin: 08/10/17 10:22 Dose: 2 spray Pantoprazole Sodium (Protonix -) 40 mg PO BID [facility] Sucralfate (Carafate Oral Suspension -) 1 gm PO Q6HPO [facility] Last Admin: 08/11/17 05:55 Dose: 1 gm - Objective Vital Signs: Vital Signs Temperature 99.1 F 08/11/17 09:51 Pulse Rate 80 08/11/17 09:51 Respiratory Rate 18 08/11/17 09:51 Blood Pressure 102/65 08/11/17 09:51 O2 Sat by Pulse Oximetry (%) 95 08/10/17 19:53 Constitutional: Yes: Calm Cardiovascular: Yes: Regular Rate and Rhythm, S1, S2 Respiratory: Yes: CTA Bilaterally Gastrointestinal: Yes: Normal Bowel Sounds, Soft Edema: No Neurological: Yes: Alert, Oriented Labs: CBC, BMP 08/11/17 05:30 08/11/17 05:30 INR, PTT INR 2.34 (0.82-1.09) H 08/11/17 05:30 Problem List - Problems (1) GI bleeding Assessment/Plan: INR still elevated needs to be below 2 GI follow up regarding plans for EGD h/h is stable no more melanotic stools on po protonix bid clear liquid diet Code(s): K92.2 - GASTROINTESTINAL HEMORRHAGE, UNSPECIFIED Qualifiers: GI bleed type/associated pathology: unspecified gastrointestinal hemorrhage type Qualified Code(s): K92.2 - Gastrointestinal hemorrhage, unspecified (2) Elevated INR Assessment/Plan: s/p FFP for INR 4.29 now INR 2.34 today Code(s): R79.1 - ABNORMAL COAGULATION PROFILE (3) History of prosthetic aortic valve Assessment/Plan: coumadin on hold for now INR 2.34 Code(s): Z95.2 - PRESENCE OF PROSTHETIC HEART VALVE (4) Atrial fibrillation Assessment/Plan: metoprolol today INR 2.34 off Coumadin - secondary to melanotic stools awaiting EGD Code(s): I48.91 - UNSPECIFIED ATRIAL FIBRILLATION Qualifiers: Atrial fibrillation type: chronic Qualified Code(s): I48.2 - Chronic atrial fibrillation (5) Lymphoma Assessment/Plan: follicular lymphoma s/p chemo to get CT scan once stable Code(s): C85.90 - NON-HODGKIN LYMPHOMA, UNSPECIFIED, UNSPECIFIED SITE Qualifiers: Lymphoma type: non-Hodgkin Non-Hodgkin lymphoma type: follicular Follicular lymphoma grade: grade II Lymphoma site: lower extremity Qualified Code(s): C82.15 - Follicular lymphoma grade II, lymph nodes of inguinal region and lower limb
[2017-08-11] MEDS ORDERED: PT OWN MED DRAWER 7, Y5N ONE ×2 (12:11→17:14)
--- NOTE | 2017-08-11 12:37 | PN ---
Progress Note (short form) - Note Progress Note: pt seen and examined. Hgb 9.2 INR 2.6 ROS cough better No fevers No further melena O/E General: In no acute distress. Extremities: No pallor or icterus. Chest:Scattered wheezes improved Abdomen: Non-distended Neuro: Alert, oriented, non-focal. Last Vital Signs Temp Pulse Resp BP Pulse Ox 99.4 F 80 20 106/70 95 08/11/17 12:00 08/11/17 12:00 08/11/17 12:00 08/11/17 12:00 08/10/17 19:53 CBC, BMP 08/11/17 05:30 08/11/17 05:30 Current Medications Generic Name Dose Route Start Last Admin Trade Name Freq PRN Reason Stop Dose Admin Albuterol/Ipratropium 1 amp 08/10/17 10:23 Duoneb - NEB Q4H PRN SHORTNESS OF BREATH Magnesium Oxide 400 mg 08/10/17 12:00 08/11/17 09:21 Mag-Ox - PO 400 mg BID [facility] Administration Metoprolol Succinate 25 mg 08/10/17 10:00 08/11/17 09:22 Toprol Xl - PO 25 mg DAILY [facility] Administration Oxymetazoline HCl 2 spray 08/08/17 08:31 08/10/17 10:22 Afrin - NS 2 spray Q12H PRN Administration NASAL CONGESTION Pantoprazole Sodium 40 mg 08/11/17 22:00 Protonix - PO BID [facility] Sucralfate 1 gm 08/07/17 13:00 08/11/17 12:13 Carafate Oral Suspension - PO 1 gm Q6HPO [facility] Administration UGIB Duodenal ulcer. FL Cardiac Co-morbidities COPD -Hgb stable today -start nebs -INR now <3 -FL- s/p C4 of R-CVP, with interim PET CT with response. When stable will repeat a CT scan -cardiology f/u noted -c/w nebs -GI f.u
[2017-08-11] MEDS ORDERED: OXYMETAZOLINE 0.05% NASAL SOLUTION 15 ML BOTTLE NS PRN (19:19)
[2017-08-11] MEDS: ALBUTEROL SO4 2.5/IPRATROPIUM 0.5 INH SOL 3 ML VIAL.NEB. NEB PRN (20:15)
[2017-08-11] MEDS: PANTOPRAZOLE 40 MG TABLET (FP) PO SCH (21:02)
[2017-08-11] MEDS ORDERED: PANTOPRAZOLE 40 MG TABLET (FP) PO SCH (22:00)
[2017-08-12] MEDS: SUCRALFATE 1 GM/10 ML UNIT DOSE CUPS PO SCH ×3 (06:16→17:31)
[2017-08-12 07:32] LABS: INR 2.15 (0.82-1.09); PROTHROMBIN TIME (PATIENT) 24.3 SEC (9.7-13.0)
[2017-08-12 07:35] LABS: BASO % 0.6 % (0-2.0); EOS % 5.2 % (0-4.5); HEMOGLOBIN 9.3 GM/dL (11.7-16.9); LYMPH % 6.5 % (8-40); MCH 28.5 pg (25.7-33.7); MCHC 33.4 g/dl (32.0-35.9); MEAN CELL VOLUME 85.4 fl (80-96); MEAN PLT VOLUME 9.2 fl (7.5-11.1); MONO % 13.9 % (3.8-10.2); NEUT % 73.8 % (42.8-82.8); PLATELET COUNT 227 K/MM3 (134-434); RBC 3.28 M/mm3 (4.00-5.60); RDW 17.7 % (11.9-15.9); WHITE BLOOD COUNT 7.2 K/mm3 (4.0-10.0)
[2017-08-12 07:48] LABS: CHLORIDE 103 mmol/L (98-107); POTASSIUM 3.7 mmol/L (3.5-5.1); SODIUM 140 mmol/L (136-145)
[2017-08-12 08:04] LABS: ALBUMIN 3.1 g/dl (3.4-5.0); ALK PHOS 81 U/L (45-117); ANION GAP 7 (8-16); BILIRUBIN,TOTAL 0.5 mg/dL (0.2-1.0); BLOOD UREA NITROGEN 11 mg/dL (7-18); CALCIUM 8.3 mg/dL (8.5-10.1); CO2 30 mmol/L (21-32); CREATININE 0.9 mg/dL (0.7-1.3); GLUCOSE,RANDOM 96 mg/dL (74-106); MAGNESIUM 2.1 mg/dL (1.8-2.4); SGOT/AST 14 U/L (15-37); SGPT/ALT 13 U/L (12-78); TOT PROT 6.4 g/dl (6.4-8.2)
[2017-08-12] MEDS: MAGNESIUM OXIDE 400 MG TABLET (FP) PO SCH ×2 (09:48→21:24)
[2017-08-12] MEDS: metoPROLOL SUCCINATE 25 MG TAB.SR.24H (FP) PO SCH (09:48)
[2017-08-12] MEDS: PANTOPRAZOLE 40 MG TABLET (FP) PO SCH ×2 (09:48→21:23)
--- NOTE | 2017-08-12 09:57 | PN ---
Progress Note, Physician Chief Complaint: AWAKE ALERT D/W GI , PATIENT WILL NOT HAVE EGD. - Current Medication List Current Medications: Active Medications Albuterol/Ipratropium (Duoneb -) 1 amp NEB Q4H PRN PRN Reason: SHORTNESS OF BREATH Last Admin: 08/11/17 20:15 Dose: 1 amp Magnesium Oxide (Mag-Ox -) 400 mg PO BID [facility] Last Admin: 08/12/17 09:48 Dose: 400 mg Metoprolol Succinate (Toprol Xl -) 25 mg PO DAILY [facility] Last Admin: 08/12/17 09:48 Dose: 25 mg Oxymetazoline HCl (Afrin -) 2 spray NS Q12H PRN PRN Reason: NASAL CONGESTION Pantoprazole Sodium (Protonix -) 40 mg PO BID [facility] Last Admin: 08/12/17 09:48 Dose: 40 mg Sucralfate (Carafate Oral Suspension -) 1 gm PO Q6HPO [facility] Last Admin: 08/12/17 06:16 Dose: 1 gm - Objective Vital Signs: Vital Signs Temperature 98 F 08/12/17 09:46 Pulse Rate 80 08/12/17 09:46 Respiratory Rate 20 08/12/17 09:46 Blood Pressure 112/68 08/12/17 09:46 O2 Sat by Pulse Oximetry (%) 95 08/11/17 21:00 Constitutional: Yes: No Distress Eyes: Yes: WNL HENT: Yes: WNL Neck: Yes: WNL Cardiovascular: Yes: Other Respiratory: Yes: WNL Gastrointestinal: Yes: WNL Genitourinary: Yes: WNL Musculoskeletal: Yes: Muscle Weakness Extremities: Yes: WNL Edema: Yes Peripheral Pulses WNL: Yes Integumentary: Yes: Venous Stasis Changes Wound/Incision: Yes: Dressing Dry and Intact Neurological: Yes: Pre-Existing Deficit, Weakness ...Motor Strength: RLE Psychiatric: Yes: Other Labs: CBC, BMP 08/12/17 06:30 08/12/17 06:30 INR, PTT INR 2.15 (0.82-1.09) H 08/12/17 06:30 Problem List - Problems (1) History of heart valve repair Code(s): Z98.890 - OTHER SPECIFIED POSTPROCEDURAL STATES (2) Elevated INR Code(s): R79.1 - ABNORMAL COAGULATION PROFILE (3) GI bleeding Code(s): K92.2 - GASTROINTESTINAL HEMORRHAGE, UNSPECIFIED Qualifiers: GI bleed type/associated pathology: unspecified gastrointestinal hemorrhage type Qualified Code(s): K92.2 - Gastrointestinal hemorrhage, unspecified (4) History of prosthetic aortic valve Code(s): Z95.2 - PRESENCE OF PROSTHETIC HEART VALVE (5) Acute blood loss anemia Code(s): D62 - ACUTE POSTHEMORRHAGIC ANEMIA (6) Anticoagulation excessive Code(s): [id number] - (7) Atrial fibrillation Code(s): I48.91 - UNSPECIFIED ATRIAL FIBRILLATION Qualifiers: Atrial fibrillation type: chronic Qualified Code(s): I48.2 - Chronic atrial fibrillation (8) Duodenal ulcer Code(s): K26.9 - DUODENAL ULCER, UNSP ACUTE OR CHRONIC, W/O HEMOR OR PERF (9) Elective replacement indicated for cardiac pacemaker battery at end of lifespan Code(s): Z45.010 - ENCNTR FOR CHECKING AND TEST OF CARD PACEMAKER PULSE GNRTR (10) Lymphoma Code(s): C85.90 - NON-HODGKIN LYMPHOMA, UNSPECIFIED, UNSPECIFIED SITE Qualifiers: Lymphoma type: non-Hodgkin Non-Hodgkin lymphoma type: follicular Follicular lymphoma grade: grade II Lymphoma site: lower extremity Qualified Code(s): C82.15 - Follicular lymphoma grade II, lymph nodes of inguinal region and lower limb (11) Old cerebrovascular accident (CVA) without late effect Code(s): Z86.73 - PRSNL HX OF TIA (TIA), AND CEREB INFRC W/O RESID DEFICITS Assessment/Plan PATIENT IS NOT HAVING EGD WITH GI I DISCUSSED WITH GI AND WILL MONITOR INR AND H/H PATIENT DENIES BLEEDING RESTART COUMADIN 7MG HS
--- NOTE | 2017-08-12 10:46 | PN ---
Progress Note, Physician History of Present Illness: No events overnight. No stigmata of ongoing gastrointestinal blood loss. Hemoglobin has been stable. Denies abdominal pain, nausea, vomiting, melena, diarrhea - Current Medication List Current Medications: Active Medications Albuterol/Ipratropium (Duoneb -) 1 amp NEB Q4H PRN PRN Reason: SHORTNESS OF BREATH Last Admin: 08/11/17 20:15 Dose: 1 amp Magnesium Oxide (Mag-Ox -) 400 mg PO BID [facility] Last Admin: 08/12/17 09:48 Dose: 400 mg Metoprolol Succinate (Toprol Xl -) 25 mg PO DAILY [facility] Last Admin: 08/12/17 09:48 Dose: 25 mg Oxymetazoline HCl (Afrin -) 2 spray NS Q12H PRN PRN Reason: NASAL CONGESTION Pantoprazole Sodium (Protonix -) 40 mg PO BID [facility] Last Admin: 08/12/17 09:48 Dose: 40 mg Sucralfate (Carafate Oral Suspension -) 1 gm PO Q6HPO [facility] Last Admin: 08/12/17 06:16 Dose: 1 gm - Objective Vital Signs: Vital Signs Temperature 98 F 08/12/17 09:46 Pulse Rate 80 08/12/17 09:46 Respiratory Rate 20 08/12/17 09:46 Blood Pressure 112/68 08/12/17 09:46 O2 Sat by Pulse Oximetry (%) 95 08/11/17 21:00 Constitutional: Yes: Well Nourished, No Distress, Calm Eyes: Yes: Conjunctiva Clear HENT: Yes: Atraumatic Respiratory: Yes: Regular Gastrointestinal: Yes: Normal Bowel Sounds, Soft. No: Tenderness Labs: CBC, BMP 08/12/17 06:30 08/12/17 06:30 INR, PTT INR 2.15 (0.82-1.09) H 08/12/17 06:30 Laboratory Last Values WBC 7.2 K/mm3 (4.0-10.0) 08/12/17 06:30 RBC 3.28 M/mm3 (4.00-5.60) L 08/12/17 06:30 Hgb 9.3 GM/dL (11.7-16.9) L 08/12/17 06:30 Hct 28.0 % (35.4-49) L 05/30/18 06:30 MCV 85.4 fl (80-96) 08/12/17 06:30 MCH 28.5 pg (25.7-33.7) 08/12/17 06:30 MCHC 33.4 g/dl (32.0-35.9) 08/12/17 06:30 RDW 17.7 % (11.9-15.9) H 08/12/17 06:30 Plt Count 227 K/MM3 (134-434) 08/12/17 06:30 MPV 9.2 fl (7.5-11.1) 08/12/17 06:30 Neutrophils % 73.8 % (42.8-82.8) 08/12/17 06:30 Lymphocytes % 6.5 % (8-40) L D 08/12/17 06:30 Monocytes % 13.9 % (3.8-10.2) H 08/12/17 06:30 Eosinophils % 5.2 % (0-4.5) H D 08/12/17 06:30 Basophils % 0.6 % (0-2.0) 08/12/17 06:30 Nucleated RBC % 0 % (0-0) 08/12/17 06:30 Retic Count 2.77 % (0.5-1.5) H D 08/09/17 05:30 PT with INR 24.30 SEC (9.7-13.0) H 08/12/17 06:30 INR 2.15 (0.82-1.09) H 08/12/17 06:30 Sodium 140 mmol/L (136-145) 08/12/17 06:30 Potassium 3.7 mmol/L (3.5-5.1) 08/12/17 06:30 Chloride 103 mmol/L (98-107) 08/12/17 06:30 Carbon Dioxide 30 mmol/L (21-32) 08/12/17 06:30 Anion Gap 7 (8-16) L 08/12/17 06:30 BUN 11 mg/dL (7-18) 08/12/17 06:30 Creatinine 0.9 mg/dL (0.7-1.3) 08/12/17 06:30 Creat Clearance w eGFR > 60 (>60) 08/12/17 06:30 Random Glucose 96 mg/dL (74-106) D 08/12/17 06:30 Calcium 8.3 mg/dL (8.5-10.1) L 08/12/17 06:30 Phosphorus 3.3 mg/dL (2.5-4.9) 08/10/17 05:20 Magnesium 2.1 mg/dL (1.8-2.4) D 08/12/17 06:30 Total Bilirubin 0.5 mg/dL (0.2-1.0) D 08/12/17 06:30 AST 14 U/L (15-37) L 08/12/17 06:30 ALT 13 U/L (12-78) 08/12/17 06:30 Alkaline Phosphatase 81 U/L (45-117) 08/12/17 06:30 LD Total 359 U/L (87-241) H D 08/09/17 05:30 Creatine Kinase 25 IU/L (39-308) L 08/07/17 10:15 Troponin I 0.29 ng/ml (0.00-0.05) H D 08/07/17 10:15 Total Protein 6.4 g/dl (6.4-8.2) 08/12/17 06:30 Albumin 3.1 g/dl (3.4-5.0) L 08/12/17 06:30 Stool Occult Blood Positive (NEGATIVE) 08/07/17 10:15 Blood Type A POSITIVE 08/10/17 12:35 Antibody Screen Negative 08/10/17 12:35 Direct Antiglob Test Negative (NEGATIVE) 08/09/17 05:30 Crossmatch See Detail 08/07/17 10:00 Problem List - Problems (1) Acute blood loss anemia Code(s): D62 - ACUTE POSTHEMORRHAGIC ANEMIA (2) Anticoagulation excessive Code(s): CLA4733 - (3) Duodenal ulcer Code(s): K26.9 - DUODENAL ULCER, UNSP ACUTE OR CHRONIC, W/O HEMOR OR PERF (4) GI bleeding Code(s): K92.2 - GASTROINTESTINAL HEMORRHAGE, UNSPECIFIED Qualifiers: GI bleed type/associated pathology: unspecified gastrointestinal hemorrhage type Qualified Code(s): K92.2 - Gastrointestinal hemorrhage, unspecified Assessment/Plan Continue current care. Diet as tolerated. Keep INR at the low target range. Close monitoring for signs of bleeding, outpatient basis. No endoscopic workup planned at this time. Continue PPI and Carafate. Discussed with the patient.
--- NOTE | 2017-08-12 12:35 | PN ---
Progress Note, Physician History of Present Illness: No further bleeding, Hgb stable, EGD deferred. - Current Medication List Current Medications: Active Medications Albuterol/Ipratropium (Duoneb -) 1 amp NEB Q4H PRN PRN Reason: SHORTNESS OF BREATH Last Admin: 08/11/17 20:15 Dose: 1 amp Magnesium Oxide (Mag-Ox -) 400 mg PO BID [facility] Last Admin: 08/12/17 09:48 Dose: 400 mg Metoprolol Succinate (Toprol Xl -) 25 mg PO DAILY [facility] Last Admin: 08/12/17 09:48 Dose: 25 mg Oxymetazoline HCl (Afrin -) 2 spray NS Q12H PRN PRN Reason: NASAL CONGESTION Pantoprazole Sodium (Protonix -) 40 mg PO BID [facility] Last Admin: 08/12/17 09:48 Dose: 40 mg Sucralfate (Carafate Oral Suspension -) 1 gm PO Q6HPO [facility] Last Admin: 08/12/17 12:30 Dose: 1 gm Warfarin Sodium 5 mg/ Warfarin (Sodium 2 mg) 7 mg PO DAILY@1800 [facility] - Objective Vital Signs: Vital Signs Temperature 98 F 08/12/17 09:46 Pulse Rate 80 08/12/17 09:46 Respiratory Rate 20 08/12/17 09:46 Blood Pressure 112/68 08/12/17 09:46 O2 Sat by Pulse Oximetry (%) 95 08/11/17 21:00 Constitutional: Yes: No Distress, Calm Neck: Yes: Supple Cardiovascular: Yes: Regular Rate and Rhythm Respiratory: Yes: Regular, CTA Bilaterally Gastrointestinal: Yes: Normal Bowel Sounds, Soft Edema: No Labs: CBC, BMP 08/12/17 06:30 08/12/17 06:30 INR, PTT INR 2.15 (0.82-1.09) H 08/12/17 06:30 - ....Imaging EKG: Report Reviewed (Tele: Afib v-paced) Problem List - Problems (1) Elevated INR Code(s): R79.1 - ABNORMAL COAGULATION PROFILE (2) GI bleeding Code(s): K92.2 - GASTROINTESTINAL HEMORRHAGE, UNSPECIFIED Qualifiers: GI bleed type/associated pathology: unspecified gastrointestinal hemorrhage type Qualified Code(s): K92.2 - Gastrointestinal hemorrhage, unspecified (3) History of heart valve repair Code(s): Z98.890 - OTHER SPECIFIED POSTPROCEDURAL STATES (4) History of prosthetic aortic valve Code(s): Z95.2 - PRESENCE OF PROSTHETIC HEART VALVE (5) Acute blood loss anemia Code(s): D62 - ACUTE POSTHEMORRHAGIC ANEMIA (6) Anticoagulation excessive Code(s): [id number] - (7) Atrial fibrillation Code(s): I48.91 - UNSPECIFIED ATRIAL FIBRILLATION Qualifiers: Atrial fibrillation type: persistent Qualified Code(s): I48.1 - Persistent atrial fibrillation (8) Duodenal ulcer Code(s): K26.9 - DUODENAL ULCER, UNSP ACUTE OR CHRONIC, W/O HEMOR OR PERF (9) Elective replacement indicated for cardiac pacemaker battery at end of lifespan Code(s): Z45.010 - ENCNTR FOR CHECKING AND TEST OF CARD PACEMAKER PULSE GNRTR (10) HTN (hypertension) Code(s): I10 - ESSENTIAL (PRIMARY) HYPERTENSION Qualifiers: Hypertension type: essential hypertension Qualified Code(s): I10 - Essential (primary) hypertension (11) History of melena Code(s): Z87.19 - PERSONAL HISTORY OF OTHER DISEASES OF THE DIGESTIVE SYSTEM (12) Lymphoma Code(s): C85.90 - NON-HODGKIN LYMPHOMA, UNSPECIFIED, UNSPECIFIED SITE Qualifiers: Lymphoma type: non-Hodgkin Non-Hodgkin lymphoma type: follicular Follicular lymphoma grade: grade II Lymphoma site: lower extremity Qualified Code(s): C82.15 - Follicular lymphoma grade II, lymph nodes of inguinal region and lower limb (13) Old cerebrovascular accident (CVA) without late effect Code(s): Z86.73 - PRSNL HX OF TIA (TIA), AND CEREB INFRC W/O RESID DEFICITS (14) Pacemaker Code(s): Z95.0 - PRESENCE OF CARDIAC PACEMAKER (15) Systolic dysfunction without heart failure Code(s): I51.9 - HEART DISEASE, UNSPECIFIED (16) Thoracic aortic aneurysm Code(s): I71.2 - THORACIC AORTIC ANEURYSM, WITHOUT RUPTURE Qualifiers: Presence of rupture: without rupture Qualified Code(s): I71.2 - Thoracic aortic aneurysm, without rupture Assessment/Plan 1. Upper gastrointestinal bleed in context of supratherapeutic INR and ASA, peptic ulcer disease, anemia post transfusion 2. CAD angina pectoris, evidence of demand ischemic injury related to above 3. Systolic left ventricular dysfunction with chronic class 0-I [place] [employer] classification left ventricular failure, compensated/euvolemic. 4. Post re-operative AVR (bio-prosthesis) 5. Ascending thoracic aortic aneurysm post-surgical repair 6. AV block post permanent pacemaker implantation [employer] device 7. Persistent atrial fibrillation [id number] score of 5 on A/C therapy with Coumadin resumed 8. History of cerebrovascular disease 9. HTN 10. Hypercholesterolemia 11. Follicular lymphoma receiving chemotherapy PLAN: 1. As outlined monitor CBC and transfuse to maintain Hg equal or > 8.0 2. EGD deferred, coumadin per INR 2.0-2,5 resumed on protonix and sucralfate with d/c concomitant ASA 81 qd 3. Continue Toprol XL 25 qd, hemodynamics permitting 4. Resume Lipitor 40 qhs 5. As outlined previously to A/C alternatives 6. D/c planning with f/u with Dr. Alexis Wallace [facility] [place]
--- NOTE | 2017-08-12 16:23 | PN ---
Progress Note (short form) - Note Progress Note: pt seen and examined. Hgb 9.3, INR 2.1 No further bleeding O/E General: In no acute distress. Extremities: No pallor or icterus. Chest:Scattered wheezes improved Abdomen: Non-distended Neuro: Alert, oriented, non-focal. Last Vital Signs Temp Pulse Resp BP Pulse Ox 99.4 F 80 20 106/70 95 08/11/17 12:00 08/11/17 12:00 08/11/17 12:00 08/11/17 12:00 08/10/17 19:53 CBC, BMP 08/11/17 05:30 08/11/17 05:30 Current Medications Generic Name Dose Route Start Last Admin Trade Name Freq PRN Reason Stop Dose Admin Albuterol/Ipratropium 1 amp 08/10/17 10:23 Duoneb - NEB Q4H PRN SHORTNESS OF BREATH Magnesium Oxide 400 mg 08/10/17 12:00 08/11/17 09:21 Mag-Ox - PO 400 mg BID DIAEN Administration Metoprolol Succinate 25 mg 08/10/17 10:00 08/11/17 09:22 Toprol Xl - PO 25 mg DAILY DIANE Administration Oxymetazoline HCl 2 spray 08/08/17 08:31 08/10/17 10:22 Afrin - NS 2 spray Q12H PRN Administration NASAL CONGESTION Pantoprazole Sodium 40 mg 08/11/17 22:00 Protonix - PO BID DIANE Sucralfate 1 gm 08/07/17 13:00 08/11/17 12:13 Carafate Oral Suspension - PO 1 gm Q6HPO DIANE Administration UGIB Duodenal ulcer. FL Cardiac Co-morbidities COPD -Hgb conrinues to be stable -monitor CBC on resumption of coumadin -gi f/u noted/cardiology f/u noted -FL- s/p C4 of R-CVP, for OP chemo once discharged -c/w nebs
[2017-08-12] MEDS ORDERED: WARFARIN NA 2 MG TABLET (UD) ONE ×2 (16:44→16:48)
[2017-08-12] MEDS ORDERED: WARFARIN NA 5 MG TABLET (UD) ONE (16:49)
[2017-08-12] MEDS ORDERED: WARFARIN NA 7.5 MG TABLET (FP) PO SCH (18:00)
[2017-08-12] MEDS ORDERED: WARFARIN NA 5 MG, WARFARIN NA 2 MG PO SCH (18:00)
[2017-08-12] MEDS: ALBUTEROL SO4 2.5/IPRATROPIUM 0.5 INH SOL 3 ML VIAL.NEB. NEB PRN (21:21)
[2017-08-12 21:29] VITALS: PULSE 80
[2017-08-12] MEDS ORDERED: ATORVASTATIN CA 40 MG TABLET (FP) PO SCH (22:00)
[2017-08-13] MEDS: SUCRALFATE 1 GM/10 ML UNIT DOSE CUPS PO SCH ×2 (00:34→06:27)
[2017-08-13] MEDS: ALBUTEROL SO4 2.5/IPRATROPIUM 0.5 INH SOL 3 ML VIAL.NEB. NEB PRN (07:22)
[2017-08-13 07:26] LABS: HEMATOCRIT 25.8 % (35.4-49); HEMOGLOBIN 8.5 GM/dL (11.7-16.9); MCH 28.4 pg (25.7-33.7); MCHC 33.2 g/dl (32.0-35.9); MEAN CELL VOLUME 85.7 fl (80-96); MEAN PLT VOLUME 9.2 fl (7.5-11.1); PLATELET COUNT 212 K/MM3 (134-434); RBC 3.01 M/mm3 (4.00-5.60); RDW 17.7 % (11.9-15.9); WHITE BLOOD COUNT 7.3 K/mm3 (4.0-10.0)
[2017-08-13 07:50] LABS: ANION GAP 5 (8-16); CALCIUM 8.2 mg/dL (8.5-10.1); CHLORIDE 105 mmol/L (98-107); CO2 31 mmol/L (21-32); CREATININE 0.8 mg/dL (0.7-1.3); GLUCOSE,RANDOM 100 mg/dL (74-106); POTASSIUM 3.5 mmol/L (3.5-5.1); SODIUM 141 mmol/L (136-145)
[2017-08-13 08:03] LABS: BLOOD UREA NITROGEN 16 mg/dL (7-18)
[2017-08-13 08:19] LABS: INR 1.59 (0.82-1.09)
[2017-08-13 08:42] VITALS: BP 115/60; TEMP 98
--- NOTE | 2017-08-13 08:47 | PN ---
Progress Note, Physician - Current Medication List Current Medications: Active Medications Albuterol/Ipratropium (Duoneb -) 1 amp NEB Q4H PRN PRN Reason: SHORTNESS OF BREATH Last Admin: 08/13/17 07:22 Dose: 1 amp Atorvastatin Calcium (Lipitor -) 40 mg PO HS [facility] Last Admin: 08/12/17 21:23 Dose: 40 mg Magnesium Oxide (Mag-Ox -) 400 mg PO BID [facility] Last Admin: 08/12/17 21:24 Dose: 400 mg Metoprolol Succinate (Toprol Xl -) 25 mg PO DAILY [facility] Last Admin: 08/12/17 09:48 Dose: 25 mg Oxymetazoline HCl (Afrin -) 2 spray NS Q12H PRN PRN Reason: NASAL CONGESTION Pantoprazole Sodium (Protonix -) 40 mg PO BID [facility] Last Admin: 08/12/17 21:23 Dose: 40 mg Sucralfate (Carafate Oral Suspension -) 1 gm PO Q6HPO [facility] Last Admin: 08/13/17 06:27 Dose: 1 gm Warfarin Sodium 5 mg/ Warfarin (Sodium 2 mg) 7 mg PO DAILY@1800 [facility] Last Admin: 08/12/17 17:31 Dose: 7 mg - Objective Vital Signs: Vital Signs Temperature 98 F 08/13/17 08:41 Pulse Rate 80 08/13/17 08:41 Respiratory Rate 20 08/13/17 08:41 Blood Pressure 115/60 08/13/17 08:41 O2 Sat by Pulse Oximetry (%) 96 08/12/17 21:00 Cardiovascular: Yes: S1, S2 Respiratory: Yes: Regular, CTA Bilaterally Gastrointestinal: Yes: Normal Bowel Sounds, Soft Labs: CBC, BMP 08/13/17 06:45 08/13/17 06:45 INR, PTT INR 1.59 (0.82-1.09) H 08/13/17 06:45 Assessment/Plan - Problems (1) GI bleeding Assessment/Plan: INR 1.5 GI follow-no plan for EGD h/h is stable no more melanotic stools on po protonix bid Code(s): K92.2 - GASTROINTESTINAL HEMORRHAGE, UNSPECIFIED Qualifiers: GI bleed type/associated pathology: unspecified gastrointestinal hemorrhage type Qualified Code(s): K92.2 - Gastrointestinal hemorrhage, unspecified (2) Elevated INR Assessment/Plan: s/p FFP for INR 4.29 now INR 1.5 today Code(s): R79.1 - ABNORMAL COAGULATION PROFILE (3) History of prosthetic aortic valve Assessment/Plan: on Coumadin INR 1.5 Code(s): Z95.2 - PRESENCE OF PROSTHETIC HEART VALVE (4) Atrial fibrillation Assessment/Plan: metoprolol on Coumadin Code(s): I48.91 - UNSPECIFIED ATRIAL FIBRILLATION Qualifiers: Atrial fibrillation type: chronic Qualified Code(s): I48.2 - Chronic atrial fibrillation (5) Lymphoma Assessment/Plan: follicular lymphoma s/p chemo to get CT scan once stable Code(s): C85.90 - NON-HODGKIN LYMPHOMA, UNSPECIFIED, UNSPECIFIED SITE Qualifiers: Lymphoma type: non-Hodgkin Non-Hodgkin lymphoma type: follicular Follicular lymphoma grade: grade II Lymphoma site: lower extremity Qualified Code(s): C82.15 - Follicular lymphoma grade II, lymph nodes of inguinal region and lower limb
[2017-08-13] MEDS: PANTOPRAZOLE 40 MG TABLET (FP) PO SCH (09:12)
[2017-08-13] MEDS: MAGNESIUM OXIDE 400 MG TABLET (FP) PO SCH (09:12)
[2017-08-13] MEDS: metoPROLOL SUCCINATE 25 MG TAB.SR.24H (FP) PO SCH (09:13)
--- NOTE | 2017-08-13 11:41 | PN ---
Progress Note (short form) - Note Progress Note: No occult bleeding noted. Noted slight drift in H&H. No CP or SOB. Intake & Output 08/10/17 08/11/17 08/12/17 08/13/17 23:59 23:59 23:59 23:59 Intake Total 2048 1271.6 250 Output Total 200 75 250 Balance 1848 1196.6 250 -250 Weight 231 lb 232 lb 7 oz Last Vital Signs Temp Pulse Resp BP Pulse Ox 98 F 80 20 115/60 96 08/13/17 08:41 08/13/17 08:41 08/13/17 09:00 08/13/17 08:41 08/13/17 09:00 Active Medications Albuterol/Ipratropium (Duoneb -) 1 amp NEB Q4H PRN PRN Reason: SHORTNESS OF BREATH Last Admin: 08/13/17 07:22 Dose: 1 amp Atorvastatin Calcium (Lipitor -) 40 mg PO HS [facility] Last Admin: 08/12/17 21:23 Dose: 40 mg Magnesium Oxide (Mag-Ox -) 400 mg PO BID [facility] Last Admin: 08/13/17 09:12 Dose: 400 mg Metoprolol Succinate (Toprol Xl -) 25 mg PO DAILY [facility] Last Admin: 08/13/17 09:13 Dose: 25 mg Oxymetazoline HCl (Afrin -) 2 spray NS Q12H PRN PRN Reason: NASAL CONGESTION Pantoprazole Sodium (Protonix -) 40 mg PO BID [facility] Last Admin: 08/13/17 09:12 Dose: 40 mg Sucralfate (Carafate Oral Suspension -) 1 gm PO Q6HPO [facility] Last Admin: 08/13/17 06:27 Dose: 1 gm Warfarin Sodium 5 mg/ Warfarin (Sodium 2 mg) 7 mg PO DAILY@1800 [facility] Last Admin: 08/12/17 17:31 Dose: 7 mg Laboratory Results - last 24 hr 08/13/17 08/13/17 08/13/17 06:45 06:45 06:45 WBC 7.3 RBC 3.01 L Hgb 8.5 L Hct 25.8 L MCV 85.7 MCH 28.4 MCHC 33.2 RDW 17.7 H Plt Count 212 MPV 9.2 PT with INR 18.00 H INR 1.59 H Sodium 141 Potassium 3.5 Chloride 105 Carbon Dioxide 31 Anion Gap 5 L BUN 16 D Creatinine 0.8 Random Glucose 100 Calcium 8.2 L Gen: NAD at rest Heart: RRR Lung: decreased breath sounds at the bases Abd: soft, nontender Ext: no edema Laboratory Results - last 24 hr 08/13/17 08/13/17 08/13/17 06:45 06:45 06:45 WBC 7.3 RBC 3.01 L Hgb 8.5 L Hct 25.8 L MCV 85.7 MCH 28.4 MCHC 33.2 RDW 17.7 H Plt Count 212 MPV 9.2 PT with INR 18.00 H INR 1.59 H Sodium 141 Potassium 3.5 Chloride 105 Carbon Dioxide 31 Anion Gap 5 L BUN 16 D Creatinine 0.8 Random Glucose 100 Calcium 8.2 L ASSESSMENT AND PLAN: GI Bleed likely Upper Acute Blood Loss Anemia Supratherapeutic INR Follicular Lymphoma COPD Paroxysmal Atrial Fibrillation LV Systolic Dysfunction h/o AVR h/o AV Block s/p PPM HTN Hypercholesterolemia - monitor H/H, INR - transfuse as needed - protonix - PO per GI - Ensure adequate peripheral access - Telemetry monitoring Dr Galvez
== END 2017-08-13 12:07 | disposition home or self-care (01) | DRG 813 ==
LOC: JER 09:49 → JERBED 12:18 → JICU 13:46 → J4S 08-11 19:14
PROVIDERS: ADMIT Family Medicine; ATTEND Family Medicine
PROC: 30233L1 Transfusion of Nonautologous Fresh Plasma into Peripheral Vein, Percutaneous Approach (ICD-10-PCS; principal; 2017-08-07)
PROC: 30233N1 Transfusion of Nonautologous Red Blood Cells into Peripheral Vein, Percutaneous Approach (ICD-10-PCS; 2017-08-07)
PROC: 30233K1 Transfusion of Nonautologous Frozen Plasma into Peripheral Vein, Percutaneous Approach (ICD-10-PCS; 2017-08-07)
PROC: 3E0F76Z Introduction of Nutritional Substance into Respiratory Tract, Via Natural or Artificial Opening (ICD-10-PCS; 2017-08-11)
DX: D68.32 Hemorrhagic disorder due to extrinsic circulating anticoagulants (principal); K26.0 Acute duodenal ulcer with hemorrhage; N17.9 Acute kidney failure, unspecified; I24.8 Other forms of acute ischemic heart disease; C82.90 Follicular lymphoma, unspecified, unspecified site; I50.22 Chronic systolic (congestive) heart failure; D62 Acute posthemorrhagic anemia; D68.9 Coagulation defect, unspecified; I11.0 Hypertensive heart disease with heart failure; I48.0 Paroxysmal atrial fibrillation; I25.119 Atherosclerotic heart disease of native coronary artery with unspecified angina pectoris; J44.9 Chronic obstructive pulmonary disease, unspecified; Z95.4 Presence of other heart-valve replacement; Z95.0 Presence of cardiac pacemaker; Z77.090 Contact with and (suspected) exposure to asbestos; Z87.11 Personal history of peptic ulcer disease; Z87.891 Personal history of nicotine dependence; Z86.73 Personal history of transient ischemic attack (TIA), and cerebral infarction without residual deficits; E87.6 Hypokalemia
CPT/HCPCS: 36415; 36430; 71045-TC-FY; 80048; 80053; 82272; 82550; 83615; 83735; 84100; 84484; 85025; 85027; 85044; 85610; 86850; 86880; 86900; 86901; 86922; 93005; 93010; 94640; 97116-GP; 97161-GP; 99285-25; J7620; P9017; P9038; P9058

== ENCOUNTER 2017-08-18 07:43 | Day surgery (SDC) | payer OTHER ==
[2017-08-18] MEDS ORDERED: SODIUM CHLORIDE 250 ML IV ONE (08:00)
[2017-08-18] MEDS ORDERED: ACETAMINOPHEN 325 MG TABLET (FP) PO ONE (08:30)
[2017-08-18] MEDS ORDERED: PALONOSETRON HCL 0.25 MG/5 ML VIAL IVPUSH ONE (08:30)
[2017-08-18] MEDS ORDERED: DEXAMETHASONE INJECTION 20 MG, DIPHENHYDRAMINE 50 MG in SODIUM CHLORIDE 100 ML IVPB ONE (08:30)
[2017-08-18] MEDS ORDERED: SODIUM CHLORIDE IVPB ONE ×2 (09:00→13:00)
[2017-08-18] MEDS ORDERED: RITUXIMAB IVPB ONE (09:00)
[2017-08-18 10:52] VITALS: TEMP 98.7
[2017-08-18 11:05] LABS: BASO % 0.8 % (0-2.0); EOS % 2.2 % (0-4.5); HEMATOCRIT 27.9 % (35.4-49); LYMPH % 8.3 % (8-40); MCH 27.4 pg (25.7-33.7); MCHC 32.4 g/dl (32.0-35.9); MEAN CELL VOLUME 84.7 fl (80-96); NEUT % 78.7 % (42.8-82.8); PLATELET COUNT 395 K/MM3 (134-434); RBC 3.29 M/mm3 (4.00-5.60); RDW 17.4 % (11.9-15.9)
[2017-08-18 11:46] LABS: CHLORIDE 107 mmol/L (98-107); POTASSIUM 4.2 mmol/L (3.5-5.1); SODIUM 139 mmol/L (136-145)
[2017-08-18 11:53] LABS: ALBUMIN 3.7 g/dl (3.4-5.0); ALK PHOS 95 U/L (45-117); ANION GAP 8 (8-16); BILIRUBIN,DIRECT < 0.2 mg/dL (0.0-0.2); BILIRUBIN,TOTAL 0.3 mg/dL (0.2-1.0); BLOOD UREA NITROGEN 22 mg/dL (7-18); CALCIUM 8.8 mg/dL (8.5-10.1); CO2 24 mmol/L (21-32); CREATININE 0.9 mg/dL (0.7-1.3); GLUCOSE,RANDOM 88 mg/dL (74-106); MAGNESIUM 2.1 mg/dL (1.8-2.4); SGOT/AST 18 U/L (15-37); SGPT/ALT 19 U/L (12-78); TOT PROT 7.3 g/dl (6.4-8.2)
[2017-08-18] MEDS ORDERED: CYCLOPHOSPHAMIDE IVPB ONE (13:00)
[2017-08-18] MEDS ORDERED: vinCRIStine SULFATE 1 MG in SODIUM CHLORIDE 50 ML IVPB ONE (13:30)
[2017-08-18] MEDS ORDERED: ACETAMINOPHEN 325 MG TABLET (FP) ONE (14:07)
[2017-08-18] MEDS ORDERED: PORTA CATH FLUSH 10 ML IVPUSH ONE (16:55)
[2017-08-18 17:30] VITALS: BP 135/71; PULSE 88
[2017-08-19] MEDS ORDERED: PEGFILGRASTIM 6 MG/0.6 ML DISP.SYRIN SQ ONE (08:00)
== END 2017-08-18 17:50 | disposition home or self-care (01) ==
LOC: JONCCHEMO 07:43 → J7W 11:59 → JONCCHEMO 17:50
PROVIDERS: ATTEND Internal Medicine Hematology & Oncology
DX: Z51.11 Encounter for antineoplastic chemotherapy (principal); C82.18 Follicular lymphoma grade II, lymph nodes of multiple sites
CPT/HCPCS: 36415; 80053; 80076; 83735; 85025; 96361; 96367; 96375; 96411; 96413; 96415; 96417; J1100; J2469; J7030; J9070; J9310; J9370

== ENCOUNTER 2017-08-19 07:57 | Day surgery (SDC) | payer OTHER ==
[2017-08-19] MEDS ORDERED: PEGFILGRASTIM 6 MG/0.6 ML DISP.SYRIN SQ ONE (14:00)
[2017-08-19 18:41] VITALS: BP 144/87; PULSE 80; TEMP 98
== END 2017-08-19 15:10 | disposition home or self-care (01) ==
LOC: JONCCHEMO 07:57 → J7W 16:51
PROVIDERS: ATTEND Internal Medicine Hematology & Oncology
PROC: 3E013GC Introduction of Other Therapeutic Substance into Subcutaneous Tissue, Percutaneous Approach (ICD-10-PCS; principal; 2017-08-19)
DX: C82.18 Follicular lymphoma grade II, lymph nodes of multiple sites (principal); Z76.89 Persons encountering health services in other specified circumstances
CPT/HCPCS: 96372; J2505

== ENCOUNTER 2017-08-25 21:10 | Inpatient (IN) | payer OTHER ==
--- NOTE | 2017-08-25 22:11 | PDOC ---
History of Present Illness - General History Source: Patient Exam Limitations: No Limitations - History of Present Illness Initial Comments: 08/25/17 22:31 The patient is a 67 year old male with past medical history of Ao valve replacement, CLL, COPD (abestosis), CHF sp PM, HTN, HL, Lymphoma and on coumadin (for prosthetic valve) was called in by Dr. Veras s/p low H&H. The patient is called in by Dr. Veras, who will treat him tomorrow morning. The patient reports prior history of low H&H secondary to the daily use of anticoagulation medication, Coumadin. The patient reports associated symptoms of sob and mild lightheadedness. Denies fever, chill, cough or headache. Denies chest pain. Denies nausea or vomiting. Denies diarrhea or constipation. Denies dysuria, hematuria, frequency or urgency to urinate. Denies numbness, tingling or loss of sensation. Allergies: NKDA Social history: No use of alcohol or recreational drugs recorded. Reports history of smoking and the use of cigars. Surgical history: Pacemaker, Valve replacement and Transverse arch graft. PCP: Dr. Viridiana Monet GI: Dr. Sergio Veras MD. ONC: Dr. Dailey <Payton Parra - Last Filed: 08/26/17 01:47> - General History Source: Patient <Ernesto Lopez - Last Filed: 08/26/17 19:19> - General Chief Complaint: Revisit, Lab Variance Stated Complaint: PCP SENT Time Seen by Provider: 08/25/17 22:00 Past History <Payton Parra - Last Filed: 08/26/17 01:47> - Past Medical History Anemia: No Asthma: No Cancer: Yes (LYMPHOMA) Cardiac Disorders: Yes (AORTIC VALVE REPLACEMENT, TRANSVERSE ARCH GRAFT) CVA: No COPD: Yes (ABESTOSIS) CHF: Yes DVT: No Dementia: No Diabetes: No GI Disorders: Yes (HIATAL HERNIA) Disorders: No HTN: Yes Hypercholesterolemia: Yes Liver Disease: No Seizures: No Thyroid Disease: No - Surgical History Abdominal Surgery: No Appendectomy: No Cardiac Surgery: Yes (PACEMAKER; VALVE REPLACEMENT,TRANSVERSE ARCH GRAFT) Cholecystectomy: No Lung Surgery: No Neurologic Surgery: No Orthopedic Surgery: No - Immunization History Immunization Up to Date: Yes - Suicide/Smoking/Psychosocial Hx Smoking Status: No Smoking History: Never smoked Have you smoked in the past 12 months: No Number of Cigarettes Smoked Daily: 8 If you are a former smoker, when did you quit?: 30 YRS Cigars Per Day: 1 Information on smoking cessation initiated: No 'Breaking Loose' booklet given: 08/16/14 Hx Alcohol Use: No Drug/Substance Use Hx: No Substance Use Type: None Hx Substance Use Treatment: No <Ernesto Lopez - Last Filed: 08/26/17 19:19> - Past Medical History Allergies/Adverse Reactions: Allergies Allergy/AdvReac Type Severity Reaction Status Date / Time No Known Drug Allergies Allergy Verified 02/11/17 11:18 Home Medications: Ambulatory Orders Atorvastatin Ca [Lipitor] 40 mg PO HS 01/12/17 Warfarin Sodium [Coumadin] 7.5 mg PO DAILY 01/12/17 Amlodipine Besylate [Norvasc -] 2.5 mg PO BID tablet 01/21/17 levETIRAcetam [Keppra -] 500 mg PO BID tablet 02/24/17 Ascorbate Calcium [Vitamin C] 500 mg PO DAILY 08/07/17 Aspirin [ASA -] 81 mg PO DAILY 08/07/17 Mirabegron [Myrbetriq] 25 mg PO DAILY 08/07/17 Multivit-Min/FA/Lycopen/Lutein [Centrum Silver Men Tablet] 1 each PO DAILY 08/07 Pantoprazole Sodium 40 mg PO BID 08/07/17 Zinc Sulfate 220 mg PO DAILY 08/07/17 Review of Systems - Review of Systems Able to Perform ROS?: Yes Comments:: 08/26/17 00:39 CONSTITUTIONAL: Absent: fever, chills, diaphoresis, generalized weakness, malaise, loss of appetite HEENT: Absent: rhinorrhea, nasal congestion, throat pain, throat swelling, difficulty swallowing, mouth swelling, ear pain, eye pain, visual Changes CARDIOVASCULAR: Absent: chest pain, syncope, palpitations, irregular heart rate, lightheadedness , peripheral edema RESPIRATORY: (+)sob Absent: cough, dyspnea with exertion, orthopnea, wheezing, stridor, hemoptysis GASTROINTESTINAL: Absent: abdominal pain, abdominal distension, nausea, vomiting, diarrhea, constipation, melena, hematochezia GENITOURINARY: Absent: dysuria, frequency, urgency, hesitancy, hematuria, flank pain, genital pain MUSCULOSKELETAL: Absent: myalgia, arthralgia, joint swelling SKIN: Absent: rash, itching, pallor HEMATOLOGIC/IMMUNOLOGIC: Absent: easy bleeding, easy bruising, lymphadenopathy, frequent infections ENDOCRINE: Absent: unexplained weight gain, unexplained weight loss, heat intolerance, cold intolerance NEUROLOGIC: (+)lightheadedness Absent: headache, focal weakness or paresthesias, unsteady gait, seizure, mental status changes, bladder or bowel incontinence PSYCHIATRIC: Absent: anxiety, depression, suicidal or homicidal ideation, hallucinations. <Payton Parra - Last Filed: 08/26/17 01:47> *Physical Exam - Vital Signs Last Vital Signs Temp Pulse Resp BP Pulse Ox 97.7 F 80 20 119/51 96 08/25/17 21:34 08/25/17 21:34 08/25/17 21:34 08/25/17 21:34 08/25/17 21:34 - Physical Exam Comments: 08/26/17 00:39 GENERAL: Well developed, well nourished. Awake and alert. No acute distress. HEENT: Normocephalic, atraumatic. PERRLA, EOMI. No conjunctival pallor. Sclera are non- icteric. Moist mucous membranes. Oropharynx is clear. NECK: Supple. Full ROM. No JVD. Carotid pulses 2+ and symmetric, without bruits. No thyromegaly. No lymphadenopathy. CARDIOVASCULAR: (+) Holo systolic click Regular rate and rhythm. No murmurs, rubs, or gallops. Distal pulses are 2+ and symmetric. PULMONARY: No evidence of respiratory distress. Lungs clear to auscultation bilaterally. No wheezing, rales or rhonchi. ABDOMINAL:(+) obese, Mildly distended. Rectal exam: Good tone. No masses. Black tarry stool noted w/ positive heme. Soft. Non-tender. No rebound or guarding. No organomegaly. Normoactive bowel sounds. MUSCULOSKELETAL Normal range of motion at all joints. No bony deformities or tenderness. No CVA tenderness. EXTREMITIES: (+) +1 non pitting edema. (+) venous stasis changes to the lower extremity. No cyanosis. No clubbing. No calf tenderness. SKIN: Warm and dry. Normal capillary refill. No rashes. No jaundice. NEUROLOGICAL: Alert, awake, appropriate. Cranial nerves 2-12 intact. No deficits to light touch and temperature in face, upper extremities and lower extremities. No motor deficits in the in face, upper extremities and lower extremities. Normoreflexic in the upper and lower extremities. Normal speech. Toes are down- going bilaterally. Gait is normal without ataxia. PSYCHIATRIC: Cooperative. Good eye contact. Appropriate mood and affect. <Payton Parra - Last Filed: 08/26/17 01:47> - Vital Signs Last Vital Signs Temp Pulse Resp BP Pulse Ox 97.7 F 80 20 119/51 96 08/25/17 21:34 08/25/17 21:34 08/25/17 21:34 08/25/17 21:34 08/25/17 21:34 <Ernesto Lopez - Last Filed: 08/26/17 19:19> Heart Score/ECG Review - ECG Impressions Comment:: 08/26/17 00:11 Vent rate: 80 bpm QRS duration: 168 ms QT/QTc: 468/539 ms Ventricular-paced rhythm <Payton Parra - Last Filed: 08/26/17 01:47> ED Treatment Course - LABORATORY CBC & Chemistry Diagram: 08/25/17 23:33 08/25/17 23:33 <Payton Parra - Last Filed: 08/26/17 01:47> - LABORATORY CBC & Chemistry Diagram: 08/26/17 10:50 08/26/17 10:50 <Ernesto Lopez - Last Filed: 08/26/17 19:19> Medical Decision Making - Medical Decision Making 08/26/17 19:19 scribe noteDrOzzie Lopez: The scribe's documentation has been prepared under my direction and personally reviewed by me in its entirery. I confirm that the note above accurately reflects all work, treatment, procedures, and medical decision making performed by me. <Ernesto Lopez - Last Filed: 08/26/17 19:19> *DC/Admit/Observation/Transfer - Attestations Scribe Attestion: 08/25/17 22:33 Documentation prepared by Payton Parra, acting as senior medical director for Ernesto Lopez DO. <Payton Parra - Last Filed: 08/26/17 01:47> - Discharge Dispostion Decision to Admit order: Yes <Ernesto Lopez - Last Filed: 08/26/17 19:19> Diagnosis at time of Disposition: Duodenal ulcer, Anemia Atrial fibrillation Qualifiers: Atrial fibrillation type: persistent Qualified Code(s): I48.1 - Persistent atrial fibrillation - Discharge Dispostion Condition at time of disposition: Stable
[2017-08-26 00:06] LABS: MCH 27.3 pg (25.7-33.7); MCHC 31.7 g/dl (32.0-35.9); MEAN CELL VOLUME 86.1 fl (80-96); MEAN PLT VOLUME 7.9 fl (7.5-11.1); PLATELET COUNT 355 K/MM3 (134-434); RBC 2.09 M/mm3 (4.00-5.60); RDW 18.7 % (11.9-15.9); WHITE BLOOD COUNT 26.2 K/mm3 (4.0-10.0)
[2017-08-26 00:10] LABS: URINE APPEARANCE TURBID; URINE BILIRUBIN NEGATIVE (<2.0 mg/dL); URINE COLOR DKYELLOW; URINE GLUCOSE (UA) NEGATIVE (NEGATIVE); URINE KETONE TRACE (NEGATIVE); URINE NITRITE NEGATIVE (NEGATIVE)
[2017-08-26 00:20] LABS: HEMOGLOBIN 5.7 GM/dL (11.7-16.9)
[2017-08-26 00:35] LABS: PROTHROMBIN TIME (PATIENT) 62.5 SEC (9.7-13.0)
[2017-08-26 00:40] LABS: URINE LEUK ESTERASE 3+ (NEGATIVE); URINE PROTEIN 1+ (NEGATIVE)
[2017-08-26 00:41] LABS: EPI CELLS RARE /HPF (FEW); URINE BACTERIA MANY /hpf (NONE SEEN); URINE MUCUS MANY
--- NOTE | 2017-08-26 00:42 | PN ---
Teaching Attending Note Name of Resident: Luis Antonio Santacruz ATTENDING PHYSICIAN STATEMENT I saw and evaluated the patient. I reviewed the resident's note and discussed the case with the resident. I agree with the resident's findings and plan as documented. SUBJECTIVE: The patient is a 67 year old male with past medical history of Aortic valve replacement, CLL, COPD (abestosis), Seizure disorder?, CHF, Pacemaker for heart block, HTN, Hyperlipidemia, follicular lymphoma and on coumadin for Afib? was called in by Dr. Veras for severe anemia. The patient reports prior history of anemia attributed to bleeding due to Coumadin therapy. The patient reports associated symptoms of SOB and mild lightheadedness. OBJECTIVE: Comfortable on nasal canula O2. Vital Signs Period Temp Pulse Resp BP Sys/Lugo Pulse Ox Last 24 Hr 97.7 F 80-80 20-25 119-139/51-74 96-100 HEENT: No Jaundice, eye redness or discharge, PERRLA, EOMI. Normocephalic, atraumatic. External ears are normal and hearing is grossly intact. No nasal discharge. Neck: Supple, nontender. No palpable adenopathy or thyromegaly. No JVD Chest: Diminished breath sounds. Midline scar. Expiratory wheezing L>R with prolonged expiration. Clear to percussion. Heart: Regular. No S3, rub; 2/6 KELSI. Abdomen: Not distended, soft, nontender and no HSM. No rebound or guarding. Normoactive bowel sounds. Ext: Peripheral pulses intact. Leg edema. Skin: Warm and dry. No petechiae, rash or ecchymosis. Neuro: Alert. Oriented x3. CN 2-12 grossly intact. Sensation grossly intact in all four extremities and DTR are symmetric. Home Medications Medication Instructions Recorded Atorvastatin Ca [Lipitor] 40 mg PO HS 01/12/17 Warfarin Sodium [Coumadin] 7.5 mg PO DAILY 01/12/17 Amlodipine Besylate [Norvasc -] 2.5 mg PO BID tablet 01/21/17 levETIRAcetam [Keppra -] 500 mg PO BID tablet 02/24/17 Ascorbate Calcium [Vitamin C] 500 mg PO DAILY 08/07/17 Aspirin [ASA -] 81 mg PO DAILY 08/07/17 Mirabegron [Myrbetriq] 25 mg PO DAILY 08/07/17 Multivit-Min/FA/Lycopen/Lutein 1 each PO DAILY 08/07/17 [Centrum Silver Men Tablet] Pantoprazole Sodium 40 mg PO BID 08/07/17 Zinc Sulfate 220 mg PO DAILY 08/07/17 Current Medications Generic Name Dose Route Start Last Admin Trade Name Freq PRN Reason Stop Dose Admin Amlodipine Besylate 2.5 mg 08/26/17 10:00 Norvasc - PO BID DIANE Atorvastatin Calcium 40 mg 08/26/17 22:00 Lipitor - PO HS DIANE Ceftriaxone Sodium 1 gm/ 100 mls @ 200 mls/hr 08/26/17 03:31 Dextrose IVPB DAILY [facility] Protocol Levetiracetam 500 mg 08/26/17 10:00 Keppra - PO BID DIANE Non-Formulary Medication 25 mg 08/26/17 10:00 Mirabegron [Myrbetriq] PO DAILY DIANE Pantoprazole Sodium 40 mg 08/26/17 10:00 Protonix Iv IVPUSH BID DIANE Abnormal Lab Results 08/25/17 08/25/17 08/25/17 23:33 23:33 23:33 WBC 26.2 H D RBC 2.09 L D Hgb 5.7 L* D Hct 18.0 L D MCHC 31.7 L RDW 18.7 H Neutrophils % (Manual) 84.0 H Lymphocytes % (Manual) 7.0 L D PT with INR 62.50 H INR 5.53 H* D Chloride BUN Random Glucose Calcium AST Alkaline Phosphatase Creatine Kinase Troponin I Total Protein Albumin Urine Protein Urine Ketones Ur Leukocyte Esterase Crossmatch See Detail 08/25/17 08/25/17 23:33 23:33 WBC RBC Hgb Hct MCHC RDW Neutrophils % (Manual) Lymphocytes % (Manual) PT with INR INR Chloride 109 H BUN 32 H D Random Glucose 118 H D Calcium 8.0 L AST 14 L D Alkaline Phosphatase 153 H D Creatine Kinase 19 L Troponin I 0.15 H D Total Protein 6.2 L Albumin 3.2 L Urine Protein 1+ H Urine Ketones Trace H Ur Leukocyte Esterase 3+ H Crossmatch ASSESSMENT AND PLAN: 1. Severe symptomatic Anemia - Likely chiefly due to GI blood loss due to coumadin toxicity. Patient has dark stools (yet to be tested for blood). Will hold coumadin, monitor INR daily and give 1 unit PRBC transfusion. GI consult for possible endoscopy and colonoscopy. Protonix 40 mg IV bid. 2. UTI - Patient has leukocytosis and pyuria that cannot be entirely attributed to follicular lymphoma. He recently got steroids as part of his chemotherapy which may be contributing to leukocytosis. Will commence IV Rocephin 1 gm q 24 hours pending result of urine culture. 3. Follicular lymphoma - Completed a cycle of chemotherapy last week comprising Rituximab, Vincristine, Cyclophosphamide and Prednisone. Will consult oncology for follow up. 4. Chest pressure - Slightly elevated troponin and EKG shows ventricular paced rhythm without ST elevation. Will admit to telemetry to rule out acute ACS. 5. COPD exacerbation - CXR shows bilateral increased interstitial markings and cardiomegaly. Will treat with duoneb, dulera, spiriva and solumedrol 40 mg IV daily as well as low dose supplemental oxygen. 6. JOSH - Likely due to intravascular volume depletion from blood loss. Avoid NSAIDS and aminoglycosides and repeat BMP after volume repletion. 7. Pacemaker - Will confirm date of last interrogation to ascertain if he is due for another. 8. DVT prophylaxis - On coumadin 9. Advance directives - Full code`
[2017-08-26 01:01] LABS: INR 5.53 (0.82-1.09)
[2017-08-26 01:08] LABS: ANION GAP 8 (8-16); BLOOD UREA NITROGEN 32 mg/dL (7-18); CHLORIDE 109 mmol/L (98-107); CO2 27 mmol/L (21-32); CREATININE 1.2 mg/dL (0.7-1.3); GLUCOSE,RANDOM 118 mg/dL (74-106); POTASSIUM 4.2 mmol/L (3.5-5.1); SODIUM 144 mmol/L (136-145)
[2017-08-26 01:09] LABS: ALBUMIN 3.2 g/dl (3.4-5.0); ALK PHOS 153 U/L (45-117); BILIRUBIN,TOTAL 0.3 mg/dL (0.2-1.0); LIPASE 173 U/L (73-393); SGOT/AST 14 U/L (15-37); SGPT/ALT 27 U/L (12-78); TOT PROT 6.2 g/dl (6.4-8.2)
[2017-08-26 01:23] LABS: MAGNESIUM 2.1 mg/dL (1.8-2.4)
[2017-08-26] MEDS ORDERED: PANTOPRAZOLE SODIUM 40 MG VIAL IVPUSH ONE (03:28)
--- NOTE | 2017-08-26 03:37 | HP ---
CHIEF COMPLAINT: Low Hb, SOB, chest tightness PCP: Dr. Monet HISTORY OF PRESENT ILLNESS: The patient is a 67 yo m w/ PMH Follicular lymphoma, COPD, CHF, Afib, aortic valve replacement (porcine) on coumadin who was sent to the ED by Dr. Veras for low Hb. The patient follows with Dr. Veras for the treatemnt of his hiatal hernia and for his duodenal ulcer. The patient complains of SOB, chest tightness , chest congestion w/ nonproductive cough and mild lightheadedness for the past 3 weeks. Patient has had episodes of anemia in the past requiring blood transfusion. The patient had a cycle of chemo on 08/19 which consisted of rituximab, cyclophosphamide, vincristine and prednisone. Patient also states that he is on iron supplementation. Patient endorses constipation and black stools, but denies melena. Patient also denies fever, chills, abdominal pain, hematochezia, hematuria, nosebleed, nausea, vomiting, dysuria or diarrhea. 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 hiatal hernia Follicular lymphoma stage 2, on round 5(?) chemo w/ R-CVP Stroke in 2016 w/ residual left sided weakness PAST SURGICAL HISTORY: PPM insertion aortic valve replacement w/ revision Transverse aortic arch graft for aneurysms EGD 07/17/17 (shows villarreal's esophagus and duodenal ulcer; Bx negative) Colonoscopy 07/17/17 (shows multiple polyps removed, all benign) Social History: Smoking: former cigarette smoker, currently smokes cigars Alcohol: denies Drugs: denies Family History: non-contributory Allergies No Known Drug Allergies Allergy (Verified 02/11/17 11:18) HOME MEDICATIONS: Home Medications Medication Instructions Recorded Atorvastatin Ca [Lipitor] 40 mg PO HS 01/12/17 Warfarin Sodium [Coumadin] 7.5 mg PO DAILY 01/12/17 Amlodipine Besylate [Norvasc -] 2.5 mg PO BID tablet 01/21/17 levETIRAcetam [Keppra -] 500 mg PO BID tablet 02/24/17 Ascorbate Calcium [Vitamin C] 500 mg PO DAILY 08/07/17 Aspirin [ASA -] 81 mg PO DAILY 08/07/17 Mirabegron [Myrbetriq] 25 mg PO DAILY 08/07/17 Multivit-Min/FA/Lycopen/Lutein 1 each PO DAILY 08/07/17 [Centrum Silver Men Tablet] Pantoprazole Sodium 40 mg PO BID 08/07/17 Zinc Sulfate 220 mg PO DAILY 08/07/17 REVIEW OF SYSTEMS CONSTITUTIONAL: Absent: fever, chills, diaphoresis, generalized weakness, malaise, loss of appetite, weight change HEENT: Absent: rhinorrhea, nasal congestion, throat pain, throat swelling, difficulty swallowing, mouth swelling, ear pain, eye pain, visual changes CARDIOVASCULAR: Absent: syncope, palpitations, irregular heart rate, peripheral edema RESPIRATORY: Absent: dyspnea with exertion, orthopnea, wheezing, stridor, hemoptysis GASTROINTESTINAL: Absent: abdominal pain, abdominal distension, nausea, vomiting, diarrhea, melena , hematochezia GENITOURINARY: Absent: dysuria, frequency, urgency, hesitancy, hematuria, flank pain, genital pain MUSCULOSKELETAL: Absent: myalgia, arthralgia, joint swelling, back pain, neck pain SKIN: Absent: rash, itching, pallor HEMATOLOGIC/IMMUNOLOGIC: Absent: easy bruising, lymphadenopathy, frequent infections ENDOCRINE: Absent: unexplained weight gain, unexplained weight loss, heat intolerance, cold intolerance NEUROLOGIC: Absent: headache, focal weakness or paresthesias, unsteady gait, seizure, mental status changes, bladder or bowel incontinence PSYCHIATRIC: Absent: anxiety, depression, suicidal or homicidal ideation, hallucinations. PHYSICAL EXAMINATION Vital Signs - 24 hr 08/25/17 08/26/17 21:34 00:14 Temperature 97.7 F Pulse Rate 80 Pulse Rate [ 80 Apical] Respiratory 20 25 H Rate Blood Pressure 119/51 Blood Pressure 139/74 [Left Arm] O2 Sat by Pulse 96 100 Oximetry (%) GENERAL: Awake, alert, and fully oriented, pale, in no acute distress. HEAD: Normal with no signs of trauma. EYES: Pupils equal, round and reactive to light, extraocular movements intact, sclera anicteric, conjunctival pallor noted. No lid lag. EARS, NOSE, THROAT: oropharynx clear without exudates. Moist mucous membranes. Pallor of mucous membranes noted NECK: Normal range of motion, supple without lymphadenopathy, JVD, or masses. LUNGS: Breath sounds equal, decreased breath sounds at the bases, scant end expiratory wheezes b/l. No accessory muscle use. HEART: Regular rate and rhythm, normal S1 and S2 without murmur, rub or gallop. ABDOMEN: Soft, nontender, not distended, normoactive bowel sounds, no guarding, no rebound, no masses. No hepatomegaly or splenomegaly. LOWER EXTREMITIES: 2+ pulses, warm, well-perfused. No calf tenderness. 2+ peripheral edema. NEUROLOGICAL: Cranial nerves II-X intact. Normal speech. Strength 5/5 in RUE, 4 /5 in LUE, 5/5 in both lower extremities PSYCHIATRIC: Cooperative. Good eye contact. Appropriate mood and affect. SKIN: Warm, dry, normal turgor, no rashes or lesions noted, normal capillary refill, Pale. Laboratory Results - last 24 hr 08/25/17 08/25/17 08/25/17 23:33 23:33 23:33 WBC 26.2 H D RBC 2.09 L D Hgb 5.7 L* D Hct 18.0 L D MCV 86.1 MCH 27.3 MCHC 31.7 L RDW 18.7 H Plt Count 355 MPV 7.9 D Absolute Neuts (auto) 23.3 Total Counted 100 Neutrophils % No Result Required. Neutrophils % (Manual) 84.0 H Band Neutrophils % 9.0 Lymphocytes % No Result Required. Lymphocytes % (Manual) 7.0 L D Nucleated RBC % 0 PT with INR 62.50 H INR 5.53 H* D Sodium Potassium Chloride Carbon Dioxide Anion Gap BUN Creatinine Creat Clearance w eGFR Random Glucose Calcium Magnesium Total Bilirubin AST ALT Alkaline Phosphatase Creatine Kinase Troponin I Total Protein Albumin Lipase Urine Color Urine Appearance Urine pH Ur Specific Kevil Urine Protein Urine Glucose (UA) Urine Ketones Urine Blood Urine Nitrite Urine Bilirubin Urine Urobilinogen Ur Leukocyte Esterase Urine WBC (Auto) Urine RBC (Auto) Ur Epithelial Cells Urine Bacteria Urine Mucus Stool Occult Blood Blood Type A POSITIVE Antibody Screen Negative Crossmatch See Detail 08/25/17 08/25/17 08/26/17 23:33 23:33 00:35 WBC RBC Hgb Hct MCV MCH MCHC RDW Plt Count MPV Absolute Neuts (auto) Total Counted Neutrophils % Neutrophils % (Manual) Band Neutrophils % Lymphocytes % Lymphocytes % (Manual) Nucleated RBC % PT with INR INR Sodium 144 Potassium 4.2 Chloride 109 H Carbon Dioxide 27 Anion Gap 8 BUN 32 H D Creatinine 1.2 D Creat Clearance w eGFR > 60 Random Glucose 118 H D Calcium 8.0 L Magnesium 2.1 Total Bilirubin 0.3 AST 14 L D ALT 27 D Alkaline Phosphatase 153 H D Creatine Kinase 19 L Troponin I 0.15 H D Total Protein 6.2 L Albumin 3.2 L Lipase 173 Urine Color Dkyellow Urine Appearance Turbid Urine pH 5.0 Ur Specific Kevil 1.021 Urine Protein 1+ H Urine Glucose (UA) Negative Urine Ketones Trace H Urine Blood Negative Urine Nitrite Negative Urine Bilirubin Negative Urine Urobilinogen 2.0 Ur Leukocyte Esterase 3+ H Urine WBC (Auto) 1099 Urine RBC (Auto) 19 Ur Epithelial Cells Rare Urine Bacteria Many Urine Mucus Many Stool Occult Blood Positive Blood Type Antibody Screen Crossmatch ASSESSMENT/PLAN: Patient is a 67 yo m w/ PMH follicular lymphoma, COPD, multiple cardiac comorbidities on coumadin sent to ED c/o symptomatic anemia and found to have pyuria #Symptomatic anemia likley 2/2 UGIB -Hb 5.7, FOBT positive -will transfuse 2uPRBC -will Rpt CBC when both units given -Protonix 40mg IV BID -GI consult -NPO for possible EGD -AC held in light of bleeding #Troponemia likely 2/2 demand ischemia, r/o ACS -EKG w/ ventricular paced rhythm, no signs of acute ischemia -trend troponin q6H -trend EKG in AM -cardiology consult -tele monitoring #Supratheraputic INR -pt w/ INR >5 and no life threatening bleeding at this time -will hold coumadin -rpt INR in AM #Pyuria possibly 2/2 UTI vs. Leukocyturia from malignancy -pt asymptomatic, but immunocompromised -urine cx ordered, will endorse to day team to f/u -Ceftriaxone 1g IV daily until cultures come back #COPD -pt has wheezing on exam & chest congestion -duonebs standing -spiriva -symbicort -prednisone 40mg daily #Afib -in sinus rhythm at this time -monitor on tele #CHF -no signs of exacerbation at this time; monitor #Acute kidney injury -monitor BUN, Creatinine #FEN -no fluids indicated -lytes WNL, replete PRN -NPO until GI eval in AM #Prophy -scds until bleeding r/o #Dispo -admit to tele Visit type - Emergency Visit Emergency Visit: Yes ED Registration Date: 08/26/17 Care time: The patient presented to the Emergency Department on the above date and was hospitalized for further evaluation of their emergent condition. - New Patient This patient is new to me today: Yes Date on this admission: 08/26/17 - Critical Care Critical Care patient: No Hospitalist Screening - Colonoscopy Questionnaire Colonoscopy Questionnaire: Colonoscopy Questionnaire - Patient: 50 - 75 years old and never had a screening colonoscopy: No History of colon or rectal polyps, or CA: Yes History of IBD, Crohn's disease or UC: No History of abdominal radiation therapy as a child: No - Relative: 1 with colon or rectal CA, or polyps at age 60 or younger: Unknown Colon or rectal CA diagnosed at age 45 or younger: Unknown Multiple relatives with colon or rectal CA: Unknown - Outcome: Screening Result: Positive Screen
[2017-08-26 05:55] VITALS: BMI 33.8
--- NOTE | 2017-08-26 09:15 | PN ---
Progress Note, Physician - Current Medication List Current Medications: Active Medications Amlodipine Besylate (Norvasc -) 2.5 mg PO BID DIANE Atorvastatin Calcium (Lipitor -) 40 mg PO HS DIANE Ceftriaxone Sodium 1 gm/ (Dextrose) 50 mls @ 100 mls/hr IVPB DAILY DIANE; Protocol Levetiracetam (Keppra -) 500 mg PO BID DIANE Non-Formulary Medication (Mirabegron [Myrbetriq]) 25 mg PO DAILY DIANE Pantoprazole Sodium (Protonix Iv) 40 mg IVPUSH BID DIANE - Objective Vital Signs: Vital Signs Temperature 97.8 F 08/26/17 06:00 Pulse Rate 80 08/26/17 06:00 Respiratory Rate 20 08/26/17 06:00 Blood Pressure 116/63 08/26/17 06:00 O2 Sat by Pulse Oximetry (%) 98 08/26/17 00:19 Cardiovascular: Yes: S1, S2 Respiratory: Yes: On Nasal O2, Rhonchi, Wheezes Gastrointestinal: Yes: Normal Bowel Sounds, Soft. No: Tenderness Labs: CBC, BMP 08/25/17 23:33 08/25/17 23:33 INR, PTT INR 5.53 (0.82-1.09) H* D 08/25/17 23:33 Problem List - Problems (1) Anemia Assessment/Plan: -Hb 5.7, FOBT positive -will transfuse 2uPRBC -will Rpt CBC when both units given -Protonix 40mg IV BID -GI consult -NPO for possible EGD -AC held in light of bleeding Code(s): D64.9 - ANEMIA, UNSPECIFIED (2) Atrial fibrillation Assessment/Plan: -inr high -hold Ac Code(s): I48.91 - UNSPECIFIED ATRIAL FIBRILLATION Qualifiers: (3) Duodenal ulcer Code(s): K26.9 - DUODENAL ULCER, UNSP ACUTE OR CHRONIC, W/O HEMOR OR PERF (4) Elevated INR Assessment/Plan: -pt w/ INR >5 and no life threatening bleeding at this time -will hold coumadin -rpt INR Code(s): R79.1 - ABNORMAL COAGULATION PROFILE (5) GI bleeding Assessment/Plan: -as above Code(s): K92.2 - GASTROINTESTINAL HEMORRHAGE, UNSPECIFIED Qualifiers: GI bleed type/associated pathology: unspecified gastrointestinal hemorrhage type Qualified Code(s): K92.2 - Gastrointestinal hemorrhage, unspecified (6) History of prosthetic aortic valve Assessment/Plan: -Requires shelter AC -hold for now--inr high and active bleeding -Cardio Code(s): Z95.2 - PRESENCE OF PROSTHETIC HEART VALVE (7) Pyuria Assessment/Plan: - possibly 2/2 UTI vs. Leukocyturia from malignancy -pt asymptomatic, but immunocompromised -urine cx ordered, will endorse to day team to f/u -Ceftriaxone 1g IV daily until cultures come back Code(s): N39.0 - URINARY TRACT INFECTION, SITE NOT SPECIFIED (8) COPD (chronic obstructive pulmonary disease) Assessment/Plan: -duonebs standing -symbicort -prednisone 40mg daily Code(s): J44.9 - CHRONIC OBSTRUCTIVE PULMONARY DISEASE, UNSPECIFIED (9) Troponin level elevated Assessment/Plan: -likely 2/2 demand ischemia, r/o ACS -EKG w/ ventricular paced rhythm, no signs of acute ischemia -trend troponin q6H -trend EKG in AM -cardiology consult -tele monitoring Code(s): R74.8 - ABNORMAL LEVELS OF OTHER SERUM ENZYMES
--- NOTE | 2017-08-26 09:38 | PN ---
Progress Note (short form) - Note Progress Note: pt seen and examined. was sent from 's clinic for anemia, cough, SOB. Pt seen and examined. O/E: General: +distress from cough HEENT; NCAT COr: RRR Lungs: diffuse wheezing Extremities: no CCE Last Vital Signs Temp Pulse Resp BP Pulse Ox 97.8 F 80 20 116/63 98 08/26/17 06:00 08/26/17 06:00 08/26/17 06:00 08/26/17 06:00 08/26/17 00:19 CBC, BMP 08/25/17 23:33 08/25/17 23:33 Current Medications Generic Name Dose Route Start Last Admin Trade Name Freq PRN Reason Stop Dose Admin Albuterol/Ipratropium 1 amp 08/26/17 12:00 Duoneb - NEB RQID DIANE Amlodipine Besylate 2.5 mg 08/26/17 10:00 Norvasc - PO BID DIANE Atorvastatin Calcium 40 mg 08/26/17 22:00 Lipitor - PO HS DIANE Ceftriaxone Sodium 1 gm/ 50 mls @ 100 mls/hr 08/26/17 04:15 Dextrose IVPB DAILY DIANE Protocol Levetiracetam 500 mg 08/26/17 10:00 Keppra - PO BID DIANE Non-Formulary Medication 25 mg 08/26/17 10:00 Mirabegron [Myrbetriq] PO DAILY DIANE Pantoprazole Sodium 40 mg 08/26/17 10:00 Protonix Iv IVPUSH BID DIANE recurrent anemia in the setting of large duodenal ulcer prbcs/FFP supratherapeutic INR repeat all labs stat order CT c/a/p with contrast monitor white cells-- ?neulasta affect cardio/pulm/GI consults
--- NOTE | 2017-08-26 09:41 | EKG ---
Test Reason : Blood Pressure : / mmHG Vent. Rate : 080 BPM Atrial Rate : 040 BPM P-R Int : 000 ms QRS Dur : 168 ms QT Int : 468 ms P-R-T Axes : 000 004 071 degrees QTc Int : 539 ms Ventricular-paced rhythm ABNORMAL ECG WHEN COMPARED WITH ECG OF 07-AUG-2017 10:01, NO SIGNIFICANT CHANGE WAS FOUND Confirmed by NURIA MELENDEZ MD ([id number]) on 08/26/2017 9:41:33 AM Referred By: Confirmed By:NURIA MELENDEZ MD
[2017-08-26] MEDS ORDERED: FUROSEMIDE 40 MG/4 ML INJECTABLE VIAL ONE (09:43)
[2017-08-26] MEDS ORDERED: DEXTROSE 5%-WATER - 50 ML IVPB ONE (09:44)
[2017-08-26] MEDS ORDERED: cefTRIAXone SODIUM 1 GM VIAL ONE (09:44)
--- NOTE | 2017-08-26 09:44 | EKG ---
Test Reason : Blood Pressure : / mmHG Vent. Rate : 080 BPM Atrial Rate : 113 BPM P-R Int : 000 ms QRS Dur : 182 ms QT Int : 462 ms P-R-T Axes : 000 -36 089 degrees QTc Int : 532 ms Ventricular-paced rhythm ABNORMAL ECG Confirmed by NURIA MELENDEZ MD ([id number]) on 08/26/2017 9:43:47 AM Referred By: Robbi SPRAGUE Confirmed By:NURIA MELENDEZ MD
[2017-08-26] MEDS ORDERED: FUROSEMIDE 40 MG/4 ML INJECTABLE VIAL IVPUSH ONE (09:56)
[2017-08-26] MEDS: levETIRAcetam 500 MG TABLET (FP) PO SCH ×2 (09:58→21:31)
[2017-08-26] MEDS: PANTOPRAZOLE SODIUM 40 MG VIAL IVPUSH SCH ×2 (09:59→21:30)
[2017-08-26] MEDS: CEFTRIAXONE 1 GM in DEXTROSE 5%-WATER - 50 ML IVPB SCH (09:59)
[2017-08-26] MEDS: amLODIPine BESYLATE 2.5 MG TABLET (FP) PO SCH ×2 (09:59→21:31)
[2017-08-26] MEDS ORDERED: PATIENT'S OWN MEDICATION (NON-FORMULARY) (Mirabegron [Myrbetriq] 25 MG) PO SCH (10:00)
--- NOTE | 2017-08-26 10:04 | CON.GI ---
Consult Consult Specialty:: GI Reason for Consultation:: Symptomatic Anemia - History of Present Illness History of Present Illness: The pt was seen in my office yesterday for a follow up. Referred to [facility] ED with INR 5.7, melena and Hgb 5.9g/dl. Also c/o productive cough with SOB. No overt hematochezia, hematemesis, abdominal pain, nausea, or vomiting. 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 Cardio/Vascular: Yes: AFIB, HTN, Other - Alcohol/Substance Use Hx Alcohol Use: No - Smoking History Smoking history: Never smoked Have you smoked in the past 12 months: No Aproximately how many cigarettes per day: 8 If you are a former smoker, when did you quit?: 30 YRS Home Medications - Allergies Allergies/Adverse Reactions: Allergies Allergy/AdvReac Type Severity Reaction Status Date / Time No Known Drug Allergies Allergy Verified 02/11/17 11:18 - Home Medications Home Medications: Ambulatory Orders Atorvastatin Ca [Lipitor] 40 mg PO HS 01/12/17 Warfarin Sodium [Coumadin] 7.5 mg PO DAILY 01/12/17 Amlodipine Besylate [Norvasc -] 2.5 mg PO BID tablet 01/21/17 levETIRAcetam [Keppra -] 500 mg PO BID tablet 02/24/17 Ascorbate Calcium [Vitamin C] 500 mg PO DAILY 08/07/17 Aspirin [ASA -] 81 mg PO DAILY 08/07/17 Mirabegron [Myrbetriq] 25 mg PO DAILY 08/07/17 Multivit-Min/FA/Lycopen/Lutein [Centrum Silver Men Tablet] 1 each PO DAILY 08/07 Pantoprazole Sodium 40 mg PO BID 08/07/17 Zinc Sulfate 220 mg PO DAILY 08/07/17 Family Disease History - Family Disease History Family History: Unremarkable Review of Systems Findings/Remarks: as per HPI, H&P Physical Exam-GI Vital Signs: Vital Signs Temperature 97.8 F 08/26/17 06:00 Pulse Rate 80 08/26/17 06:00 Respiratory Rate 20 08/26/17 06:00 Blood Pressure 116/63 08/26/17 06:00 O2 Sat by Pulse Oximetry (%) 98 08/26/17 00:19 Constitutional: Yes: [place], Diaphoresis, Mild Distress, Pallor Eyes: No: Sclera Icterus HENT: Yes: Atraumatic Neck: Yes: Supple Respiratory: Yes: On Nasal O2, SOB, SOB on Exertion, Tachypnea, Wheezes, Other ( productive cough) ...Rectal Exam: Yes: Guaiac Positive Neurological: Yes: Alert, Oriented Labs: CBC, BMP 08/25/17 23:33 08/25/17 23:33 INR, PTT INR 5.53 (0.82-1.09) H* D 08/25/17 23:33 Laboratory Last Values WBC 26.2 K/mm3 (4.0-10.0) H D 08/25/17 23:33 RBC 2.09 M/mm3 (4.00-5.60) L D 08/25/17 23:33 Hgb 5.7 GM/dL (11.7-16.9) L* D 08/25/17 23:33 Hct 18.0 % (35.4-49) L D 08/25/17 23:33 MCV 86.1 fl (80-96) 08/25/17 23:33 MCH 27.3 pg (25.7-33.7) 08/25/17 23:33 MCHC 31.7 g/dl (32.0-35.9) L 08/25/17 23:33 RDW 18.7 % (11.9-15.9) H 08/25/17 23:33 Plt Count 355 K/MM3 (134-434) 08/25/17 23:33 MPV 7.9 fl (7.5-11.1) D 08/25/17 23:33 Absolute Neuts (auto) 23.3 # 08/25/17 23:33 Total Counted 100 08/25/17 23:33 Neutrophils % No Result Required. 08/25/17 23:33 Neutrophils % (Manual) 84.0 % (42.8-82.8) H 08/25/17 23:33 Band Neutrophils % 9.0 % 08/25/17 23:33 Lymphocytes % No Result Required. 08/25/17 23:33 Lymphocytes % (Manual) 7.0 % (8-40) L D 08/25/17 23:33 Nucleated RBC % 0 % (0-0) 08/25/17 23:33 PT with INR 62.50 SEC (9.7-13.0) H 08/25/17 23:33 INR 5.53 (0.82-1.09) H* D 08/25/17 23:33 Sodium 144 mmol/L (136-145) 08/25/17 23:33 Potassium 4.2 mmol/L (3.5-5.1) 08/25/17 23:33 Chloride 109 mmol/L (98-107) H 08/25/17 23:33 Carbon Dioxide 27 mmol/L (21-32) 08/25/17 23:33 Anion Gap 8 (8-16) 08/25/17 23:33 BUN 32 mg/dL (7-18) H D 08/25/17 23:33 Creatinine 1.2 mg/dL (0.7-1.3) D 08/25/17 23:33 Creat Clearance w eGFR > 60 (>60) 08/25/17 23:33 Random Glucose 118 mg/dL (74-106) H D 08/25/17 23:33 Calcium 8.0 mg/dL (8.5-10.1) L 08/25/17 23:33 Magnesium 2.1 mg/dL (1.8-2.4) 08/25/17 23:33 Total Bilirubin 0.3 mg/dL (0.2-1.0) 08/25/17 23:33 AST 14 U/L (15-37) L D 08/25/17 23:33 ALT 27 U/L (12-78) D 08/25/17 23:33 Alkaline Phosphatase 153 U/L (45-117) H D 08/25/17 23:33 Creatine Kinase 19 IU/L (39-308) L 08/25/17 23:33 Troponin I 0.15 ng/ml (0.00-0.05) H D 08/25/17 23:33 Total Protein 6.2 g/dl (6.4-8.2) L 08/25/17 23:33 Albumin 3.2 g/dl (3.4-5.0) L 08/25/17 23:33 Lipase 173 U/L (73-393) 08/25/17 23:33 Urine Color Dkyellow 08/25/17 23:33 Urine Appearance Turbid 08/25/17 23:33 Urine pH 5.0 (5.0-8.0) 08/25/17 23:33 Ur Specific [place] 1.021 (1.001-1.035) 08/25/17 23:33 Urine Protein 1+ (NEGATIVE) H 08/25/17 23:33 Urine Glucose (UA) Negative (NEGATIVE) 08/25/17 23:33 Urine Ketones Trace (NEGATIVE) H 08/25/17 23:33 Urine Blood Negative (NEGATIVE) 08/25/17 23:33 Urine Nitrite Negative (NEGATIVE) 08/25/17 23:33 Urine Bilirubin Negative (<2.0 mg/dL) 08/25/17 23:33 Urine Urobilinogen 2.0 mg/dL (0.2-1.0) 08/25/17 23:33 Ur Leukocyte Esterase 3+ (NEGATIVE) H 08/25/17 23:33 Urine WBC (Auto) 1099 /hpf (3-5) 08/25/17 23:33 Urine RBC (Auto) 19 /hpf (0-3) 08/25/17 23:33 Ur Epithelial Cells Rare /HPF (FEW) 08/25/17 23:33 Urine Bacteria Many /hpf (NONE SEEN) 08/25/17 23:33 Urine Mucus Many 08/25/17 23:33 Stool Occult Blood Positive (NEGATIVE) 08/26/17 00:35 Blood Type A POSITIVE 08/25/17 23:33 Antibody Screen Negative 08/25/17 23:33 Crossmatch See Detail 08/25/17 23:33 Problem List - Problems (1) Duodenal ulcer Code(s): K26.9 - DUODENAL ULCER, UNSP ACUTE OR CHRONIC, W/O HEMOR OR PERF (2) Acute blood loss anemia Code(s): D62 - ACUTE POSTHEMORRHAGIC ANEMIA (3) Anticoagulation excessive Code(s): SMR8297 - (4) GI bleeding Code(s): K92.2 - GASTROINTESTINAL HEMORRHAGE, UNSPECIFIED Qualifiers: GI bleed type/associated pathology: unspecified gastrointestinal hemorrhage type Qualified Code(s): K92.2 - Gastrointestinal hemorrhage, unspecified (5) Lymphoma Code(s): C85.90 - NON-HODGKIN LYMPHOMA, UNSPECIFIED, UNSPECIFIED SITE Qualifiers: Lymphoma type: non-Hodgkin Non-Hodgkin lymphoma type: follicular Follicular lymphoma grade: grade II Lymphoma site: lower extremity Qualified Code(s): C82.15 - Follicular lymphoma grade II, lymph nodes of inguinal region and lower limb Assessment/Plan Symptomatic anemia, in part, from chronic GI blood loss from the 2nd portion duodenal ulcer in the setting of hypercoagulable state. The ulcer is not amendable to endoscopic therapy due to the adverse locations and the size. Recommend surgical and, or IR evaluation for definite treatment in this pt who is required life-long anticoagulation for prosthetic heart valve. Hem/Onc on the case as pt is undergoing lymphoma treatment. Transfuse to Hgb >8 g/dl. Hold Coumadin, daily CBC. Clear liquid diet. Pulmonary, Sx and IR evaluation.
--- NOTE | 2017-08-26 10:45 | CON.CARD ---
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) post recent generator change, follicular lymphoma undergoing chemotherapy, duodenal ulcer admitted for anemia Hgb 5.9, recurrent melena again in context of supratherapeutic INR 5.7 Hgb 5.9 without abd pain, hematochezia, chest pain, near or true syncope, palpitations, orthopnea, PND or LE edema. He does report productive cough with dyspnea and wheezes. He sees Dr. Alexis Brand of [facility]. 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 Cardio/Vascular: Yes: AFIB, HTN, Other Gastrointestinal: Yes: Peptic Ulcer Disease - Alcohol/Substance Use Hx Alcohol Use: No - Smoking History Smoking history: Never smoked Have you smoked in the past 12 months: No Aproximately how many cigarettes per day: 8 If you are a former smoker, when did you quit?: 30 YRS Home Medications - Allergies Allergies/Adverse Reactions: Allergies Allergy/AdvReac Type Severity Reaction Status Date / Time No Known Drug Allergies Allergy Verified 02/11/17 11:18 - Home Medications Home Medications: Ambulatory Orders Atorvastatin Ca [Lipitor] 40 mg PO HS 01/12/17 Warfarin Sodium [Coumadin] 7.5 mg PO DAILY 01/12/17 Amlodipine Besylate [Norvasc -] 2.5 mg PO BID tablet 01/21/17 levETIRAcetam [Keppra -] 500 mg PO BID tablet 02/24/17 Ascorbate Calcium [Vitamin C] 500 mg PO DAILY 08/07/17 Aspirin [ASA -] 81 mg PO DAILY 08/07/17 Mirabegron [Myrbetriq] 25 mg PO DAILY 08/07/17 Multivit-Min/FA/Lycopen/Lutein [Centrum Silver Men Tablet] 1 each PO DAILY 08/07 Pantoprazole Sodium 40 mg PO BID 08/07/17 Zinc Sulfate 220 mg PO DAILY 08/07/17 Review of Systems - Review of Systems Gastrointestinal: reports: Melena Vital Signs: Vital Signs Temperature 97.8 F 08/26/17 06:00 Pulse Rate 80 08/26/17 06:00 Respiratory Rate 20 08/26/17 06:00 Blood Pressure 116/63 08/26/17 06:00 O2 Sat by Pulse Oximetry (%) 98 08/26/17 00:19 Constitutional: Yes: No Distress, Calm Neck: Yes: Supple Respiratory: Yes: Regular, Cough, Wheezes Gastrointestinal: Yes: Normal Bowel Sounds, Soft Cardiovascular: Yes: Regular Rate and Rhythm JVD: No Carotid Bruit: No Heart Sounds: Yes: S1, S2 Edema: No - Other Data Labs, Other Data: CBC, BMP 08/25/17 23:33 08/25/17 23:33 INR, PTT INR 5.53 (0.82-1.09) H* D 08/25/17 23:33 Troponin, BNP 08/25/17 23:33 Troponin I 0.15 H D Troponin, BNP 08/25/17 23:33 Troponin I 0.15 H D Afib v-paced @ 80 Echo: Report Reviewed Problem List - Problems (1) Atrial fibrillation Code(s): I48.91 - UNSPECIFIED ATRIAL FIBRILLATION Qualifiers: Atrial fibrillation type: persistent Qualified Code(s): I48.1 - Persistent atrial fibrillation (2) COPD (chronic obstructive pulmonary disease) Code(s): J44.9 - CHRONIC OBSTRUCTIVE PULMONARY DISEASE, UNSPECIFIED Qualifiers: COPD type: chronic bronchitis (3) Duodenal ulcer Code(s): K26.9 - DUODENAL ULCER, UNSP ACUTE OR CHRONIC, W/O HEMOR OR PERF (4) Acute blood loss anemia Code(s): D62 - ACUTE POSTHEMORRHAGIC ANEMIA (5) Anticoagulation excessive Code(s): BSD3730 - (6) Elevated INR Code(s): R79.1 - ABNORMAL COAGULATION PROFILE (7) GI bleeding Code(s): K92.2 - GASTROINTESTINAL HEMORRHAGE, UNSPECIFIED Qualifiers: GI bleed type/associated pathology: duodenal ulcer Qualified Code(s): K26.4 - Chronic or unspecified duodenal ulcer with hemorrhage (8) HTN (hypertension) Code(s): I10 - ESSENTIAL (PRIMARY) HYPERTENSION Qualifiers: Hypertension type: essential hypertension Qualified Code(s): I10 - Essential (primary) hypertension (9) History of melena Code(s): Z87.19 - PERSONAL HISTORY OF OTHER DISEASES OF THE DIGESTIVE SYSTEM (10) History of prosthetic aortic valve Code(s): Z95.2 - PRESENCE OF PROSTHETIC HEART VALVE (11) Lymphoma Code(s): C85.90 - NON-HODGKIN LYMPHOMA, UNSPECIFIED, UNSPECIFIED SITE Qualifiers: Lymphoma type: non-Hodgkin Non-Hodgkin lymphoma type: follicular Follicular lymphoma grade: grade II Lymphoma site: lower extremity Qualified Code(s): C82.15 - Follicular lymphoma grade II, lymph nodes of inguinal region and lower limb (12) Old cerebrovascular accident (CVA) without late effect Code(s): Z86.73 - PRSNL HX OF TIA (TIA), AND CEREB INFRC W/O RESID DEFICITS (13) Pacemaker Code(s): Z95.0 - PRESENCE OF CARDIAC PACEMAKER (14) Diastolic dysfunction without heart failure Code(s): I51.89 - OTHER ILL-DEFINED HEART DISEASES (15) Demand ischemia Code(s): I24.8 - OTHER FORMS OF ACUTE ISCHEMIC HEART DISEASE (16) Thoracic aortic aneurysm Code(s): I71.2 - THORACIC AORTIC ANEURYSM, WITHOUT RUPTURE Qualifiers: Presence of rupture: without rupture Qualified Code(s): I71.2 - Thoracic aortic aneurysm, without rupture Assessment/Plan 07/2016 Echo: Normal LV and RV size and fxn, severe LAE, mild EKTA, mild AR, MR, TR, normal prosthetic gradients, PPM wire in RV 1. Upper gastrointestinal bleed in context of supratherapeutic INR, duodenul ulcer, anemia post transfusion 2. CAD angina pectoris, evidence of demand ischemic injury related to above 3. Left ventricular diastolic dysfunction with chronic class 0-I [place] [employer] classification left ventricular failure, compensated/euvolemic. 4. Post re-operative AVR (bio-prosthesis) 5. Ascending thoracic aortic aneurysm post-surgical repair 6. AV block post permanent pacemaker implantation [employer] device 7. Persistent atrial fibrillation [id number] score of 5 on A/C therapy with supratherapeutic INR 8. History of cerebrovascular disease 9. HTN 10. Hypercholesterolemia 11. Follicular lymphoma receiving chemotherapy 12. Demand ischemia 13. COPD PLAN: 1. As outlined monitor CBC and transfuse to maintain Hg equal or > 8.0, trops have peaked 2. Patient has had 3 presentations for recurrent melena in context of supratherapeutic INR, would change to NOAC once INR<2 and hemostasis achieved since INR control is suboptimal. Watchman device/AGUEDA closure (outpatient) implantation would be the final option, continue protonix and sucralfate with d/ c concomitant ASA 81 qd 3. Continue Toprol XL 25 qd, hemodynamics permitting 4. Continue Lipitor 40 qhs 5. Will discuss plan of care with primary regional marketing manager Dr. Alexis Wallace of [facility] 6. BD, oral steroids with caution and GI protection 7. Thank you for consultative opportunity
[2017-08-26 11:15] LABS: EOS % 0.6 % (0-4.5); HEMATOCRIT 20.3 % (35.4-49); LYMPH % 3.6 % (8-40); MCH 27.9 pg (25.7-33.7); MCHC 32.2 g/dl (32.0-35.9); MEAN CELL VOLUME 86.6 fl (80-96); MEAN PLT VOLUME 7.8 fl (7.5-11.1); MONO % 6.1 % (3.8-10.2); NEUT % 89.7 % (42.8-82.8); PLATELET COUNT 312 K/MM3 (134-434); RBC 2.35 M/mm3 (4.00-5.60); RDW 17.6 % (11.9-15.9); WHITE BLOOD COUNT 28.9 K/mm3 (4.0-10.0)
[2017-08-26] MEDS: ALBUTEROL SO4 2.5/IPRATROPIUM 0.5 INH SOL 3 ML VIAL.NEB. NEB SCH ×3 (11:15→20:54)
[2017-08-26 11:29] LABS: HEMOGLOBIN 6.5 GM/dL (11.7-16.9)
[2017-08-26 11:43] LABS: ALBUMIN 3.4 g/dl (3.4-5.0); ANION GAP 8 (8-16); BLOOD UREA NITROGEN 24 mg/dL (7-18); CALCIUM 8.4 mg/dL (8.5-10.1); CHLORIDE 107 mmol/L (98-107); CO2 28 mmol/L (21-32); CREATININE 0.9 mg/dL (0.7-1.3); GLUCOSE,RANDOM 93 mg/dL (74-106); MAGNESIUM 2.1 mg/dL (1.8-2.4); PHOSPHOROUS 3.6 mg/dL (2.5-4.9); POTASSIUM 3.9 mmol/L (3.5-5.1); SGOT/AST 17 U/L (15-37); SGPT/ALT 27 U/L (12-78); SODIUM 143 mmol/L (136-145)
[2017-08-26 11:47] LABS: ALK PHOS 151 U/L (45-117); BILIRUBIN,TOTAL 0.4 mg/dL (0.2-1.0); TOT PROT 6.5 g/dl (6.4-8.2)
[2017-08-26 12:09] LABS: PROTHROMBIN TIME (PATIENT) 51.5 SEC (9.7-13.0)
[2017-08-26 12:12] LABS: ACTIVATED PTT 45.9 SECONDS (26.9-34.4)
[2017-08-26 12:15] LABS: INR 4.56 (0.82-1.09)
--- NOTE | 2017-08-26 12:18 | CONSULT ---
- Consultation REQUESTING PROVIDER: Chris Miller (General Surgery) CONSULT REQUEST: We have been asked to surgically evaluate this patient for GI bleed 2/2 duodenal ulcer PCP: Viridiana Monet HPI: Called to eval 67yo male with PMHx as noted below. Sent to [facility] ED from Dr. Veras's (GI) office secondary to supra-therapeutic INR 5.9 and melena. C/o SOB, wheezing (has COPD), chest congestion with a non-productive cough x3 weeks. + black tarry stools. Patient had a EGD/Colonoscopy on 07/17/17. EGD identified Villarreal's Esophagus and a duodenal ulcer located in the 2nd portion of the duodenum. Colonoscopy patient had multiple polyps removed (benign). He has a h/o anemia requiring PRBCs in the past. The patient currently receiving chemo due to Lymphoma (most recent on 08/19/17). Patient also states that he is on iron supplementation. States he feels weak and tired. Denies n/v/f/c. Denies chest pain, syncope, palpitations, or peripheral edema. Denies ONIELL or hemoptysis. Denies abd pain or hematochazia. Denies dysuria, hematuria or flank pain. 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, Hiatal hernia, Follicular Lymphoma Stage 2 (on round 5(?) chemo), Stroke in 2016 w/ residual left sided weakness PSHx: Transverse aortic arch graft for aneurysms, PPM, aortic valve replacement (porcine) w/ revision, EGD & Colonoscopy 07/17/17 (shows villarreal's esophagus and duodenal ulcer; Bx negative), Colonoscopy:multiple polyps removed, all benign Home Meds Atorvastatin Ca [Lipitor] 40 mg PO HS 01/12/17 Warfarin Sodium [Coumadin] 7.5 mg PO DAILY 01/12/17 Amlodipine Besylate [Norvasc -] 2.5 mg PO BID tablet 01/21/17 levETIRAcetam [Keppra -] 500 mg PO BID tablet 02/24/17 Ascorbate Calcium [Vitamin C] 500 mg PO DAILY 08/07/17 Aspirin [ASA -] 81 mg PO DAILY 08/07/17 Mirabegron [Myrbetriq] 25 mg PO DAILY 08/07/17 Multivit-Min/FA/Lycopen/Lutein [Centrum Silver Men Tablet] 1 each PO DAILY 08/07 Pantoprazole Sodium 40 mg PO BID 08/07/17 Zinc Sulfate 220 mg PO DAILY 08/07/17 Allergies: NKDA ROS: CONSTITUTIONAL: See HPI. malaise, loss of appetite, weight change CARDIOVASCULAR: See HPI. RESPIRATORY: SEE HPI. GASTROINTESTINAL:SEE HPI. GENITOURINARY: SEE HPI. frequency, urgency, hesitancy, genital pain MUSCULOSKELETAL: Absent: myalgia, arthralgia, joint swelling, back pain, neck pain SKIN: Absent: rash, itching, pallor HEMATOLOGIC/IMMUNOLOGIC: Absent: easy bruising NEUROLOGIC: Absent: headache, dizziness, unsteady gait, seizure, mental status changes, bladder or bowel incontinence PSYCHIATRIC: Absent: anxiety, depression, suicidal or homicidal ideation, hallucinations. PE: GENERAL: Awake, alert, and fully oriented, in NAD. HEAD: NC. AT. EYES: PERRL, sclera anicteric, conjunctiva clear. NECK: Normal ROM, supple LUNGS: HEART: Afib rate controlled ABDOMEN: Soft, NT. ND. Normoactive bs x4, no guarding, no rebound, no masses. No organomegaly. MUSCULOSKELETAL: No CVA tenderness. UE: 2+ pulses, warm, well-perfused. No cyanosis. Cap refill <2 seconds. No peripheral edema. LE: 2+ pulses, warm, well-perfused. No calf tenderness. No peripheral edema. NEUROLOGICAL: Normal speech, gait not observed. PSYCH: Cooperative. Good eye contact. Appropriate mood and affect. SKIN: Warm, dry, normal turgor, no rashes or lesions noted. Last Vital Signs Temp Pulse Resp BP Pulse Ox 98.5 F 80 20 112/65 98 08/26/17 10:00 08/26/17 10:00 08/26/17 10:00 08/26/17 10:00 08/26/17 10:00 TRENDS 08/25/17 08/26/17 23:33 10:50 WBC 26.2 28.9 Hgb 5.7 6.5 Hct 18.0 20.3 Plt Count 355 312 COAGS 08/25/17 08/26/17 23:33 10:50 PT 62.50 51.50 INR 5.53 4.56 Troponin 08/25/17 08/26/17 23:33 10:50 Troponin I 0.15 H D 0.17 H Problem List - Problems (1) GI bleeding Assessment/Plan: Per Dr. Veras's note the ulcer isn't ammendable to endoscopic intervention. Ulcer is located in 2nd portion of duodenum. Should go to IR to see if they can embolize the gastric-duodenal artery. If unable to perform safely and needs operative management, Dr. Miller feels patient should be transferred to a tertiary facility given patient's multiple co-morbidities for post-operative management. His elevated troponins most likely secondary to demand ischemia. Transfuse PRBC Trend H/H GI ppx: Protonix DVT ppx: SCDs Trend troponins repeat Coags Consider ICU observation Above plan discussed with Dr. Chino and agrees. Code(s): K92.2 - GASTROINTESTINAL HEMORRHAGE, UNSPECIFIED Qualifiers: GI bleed type/associated pathology: duodenal ulcer Qualified Code(s): K26.4 - Chronic or unspecified duodenal ulcer with hemorrhage (2) Acute blood loss anemia Code(s): D62 - ACUTE POSTHEMORRHAGIC ANEMIA (3) Atrial fibrillation Code(s): I48.91 - UNSPECIFIED ATRIAL FIBRILLATION Qualifiers: Atrial fibrillation type: persistent Qualified Code(s): I48.1 - Persistent atrial fibrillation (4) COPD (chronic obstructive pulmonary disease) Code(s): J44.9 - CHRONIC OBSTRUCTIVE PULMONARY DISEASE, UNSPECIFIED Qualifiers: COPD type: chronic bronchitis
--- NOTE | 2017-08-26 12:20 | PN ---
Progress Note (short form) - Note Progress Note: PULMONARY CONSULTATION DICTATED 08/26/17 IMP COPD EXACERBATION GI BLEED SYMPTOMATIC ANEMIA SUPRA-THERAPEUTIC INR S/P AVR AFIB CHF S/P PPM ASHD + TROPONINS LIKELY DEMAND ISCHEMIA FOLLICULAR LYMPHOMA H/O ASBESTOS EXPOSURE PLAN IV STEROIDS INHALED BRONCHODILATORS SUPPLEMENTAL O2 TRANSFUSE MONITOR INR MONITOR CBC,H+H GI W/U F/U CHEST X-RAY TREND TROPONINS PROTONIX DR ACOSTA Problem List - Problems (1) COPD exacerbation Code(s): J44.1 - CHRONIC OBSTRUCTIVE PULMONARY DISEASE W (ACUTE) EXACERBATION (2) Anemia Code(s): D64.9 - ANEMIA, UNSPECIFIED (3) Atrial fibrillation Code(s): I48.91 - UNSPECIFIED ATRIAL FIBRILLATION Qualifiers: Atrial fibrillation type: persistent Qualified Code(s): I48.1 - Persistent atrial fibrillation (4) COPD (chronic obstructive pulmonary disease) Code(s): J44.9 - CHRONIC OBSTRUCTIVE PULMONARY DISEASE, UNSPECIFIED Qualifiers: COPD type: chronic bronchitis (5) Demand ischemia Code(s): I24.8 - OTHER FORMS OF ACUTE ISCHEMIC HEART DISEASE (6) Troponin level elevated Code(s): R74.8 - ABNORMAL LEVELS OF OTHER SERUM ENZYMES (7) Acute blood loss anemia Code(s): D62 - ACUTE POSTHEMORRHAGIC ANEMIA (8) Elevated INR Code(s): R79.1 - ABNORMAL COAGULATION PROFILE (9) GI bleeding Code(s): K92.2 - GASTROINTESTINAL HEMORRHAGE, UNSPECIFIED Qualifiers: GI bleed type/associated pathology: duodenal ulcer Qualified Code(s): K26.4 - Chronic or unspecified duodenal ulcer with hemorrhage (10) HTN (hypertension) Code(s): I10 - ESSENTIAL (PRIMARY) HYPERTENSION Qualifiers: Hypertension type: essential hypertension Qualified Code(s): I10 - Essential (primary) hypertension (11) History of prosthetic aortic valve Code(s): Z95.2 - PRESENCE OF PROSTHETIC HEART VALVE (12) Lymphoma Code(s): C85.90 - NON-HODGKIN LYMPHOMA, UNSPECIFIED, UNSPECIFIED SITE Qualifiers: Lymphoma type: non-Hodgkin Non-Hodgkin lymphoma type: follicular Follicular lymphoma grade: grade II Lymphoma site: lower extremity Qualified Code(s): C82.15 - Follicular lymphoma grade II, lymph nodes of inguinal region and lower limb (13) Old cerebrovascular accident (CVA) without late effect Code(s): Z86.73 - PRSNL HX OF TIA (TIA), AND CEREB INFRC W/O RESID DEFICITS
[2017-08-26 12:57] LABS: ANISOCYTOSIS 1+; MACROCYTOSIS 1+; OVALOCYTE 1+; PLATELET ESTIMATE NORMAL; TEAR DROP CELLS 1+; TOXIC GRANULATION 1+
--- NOTE | 2017-08-26 14:09 | CONS ---
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 Recently hospitalized at [facility] secondary to bleeding duodenal ulcer. He was readmitted on August 26 with complaint of increasing shortness of breath and congestion. It was also noted that he recently underwent labs at Dr. Veras's office which revealed an INR of 5.7 and a hemoglobin of 5.9 and he was sent to the emergency room above. On admission he was evaluated by Dr. Veras for GI consultation as well as Dr. Sal Villagran for cardiology consultation. On admission he was admitted to the telemetry unit for monitoring and transfusions. The patient has been complaining of increasing shortness of breath and chest congestion for the past week. He denies any fevers or chills. He states his cough is nonproductive. He denies any chest pain, nausea, vomiting, or diaphoresis. He states he has a history of tobacco use, approximately 2 packs a day, he quit at the age of 31. He was previously employed at [employer], [email or web address] and has exposure to asbestos. He denies any history of DVT or PE in the past. PAST MEDICAL HISTORY: Includes ASHD, congestive heart failure, atrial fibrillation, status post aortic valve replacement, status post total aortic arch replacement, history of endocarditis, follicular lymphoma on chemotherapy, atrial fibrillation on Coumadin, recent GI bleed, hiatal hernia, history of CVA with residual left-sided weakness, hypertension, hyperlipidemia, and CHF status post PPM. REVIEW OF SYSTEMS: Positive cough, positive shortness of breath, positive chest congestion, no fevers, no chills, no nausea, no vomiting, no abdominal pain, and positive weakness. CURRENT MEDICATIONS: Include Myrbetriq, ceftriaxone, Keppra, DuoNeb, Norvasc, Lipitor, Protonix IV. PHYSICAL EXAMINATION: General: The patient is a well-developed, well-nourished male, awake, alert, and mildly dyspneic but in no acute distress. Vital Signs: He is afebrile. Blood pressure 112/65, respiratory rate just 20, and oxygen saturation is 98% on 3 L. HEENT: Examination is normocephalic, atraumatic. Neck: Supple. Heart: Irregularly irregular, normal S1, S2. Chest: Diffuse bilateral wheezes and rhonchi. Abdomen: Soft. Bowel sounds are positive. Extremities: No cyanosis or edema. LABORATORIES: WBC is 28.9, hemoglobin 6.5, hematocrit 20.3 with a platelet count of 312. INR is 5.53. BUN 32 and creatinine 1.2. Chest x-ray: No acute pathology. IMPRESSION: 1. Dyspnea with chest congestion likely secondary to acute exacerbation of chronic obstructive pulmonary disease. 2. Gastrointestinal bleed. 3. Symptomatic anemia. 4. Arteriosclerotic heart disease. 5. Status post aortic valve replacement, status post aortic arch replacement. 6. History of Streptococcus viridans endocarditis. 7. History of cerebrovascular accident. 8. Hypertension. 9. Hypercholesterolemia. 10. Status post congestive heart failure. 11. Status post permanent pacemaker. 12. Atrial fibrillation. 13. Supratherapeutic INR. 14. Symptomatic anemia secondary to gastrointestinal bleed. 15. Positive troponin, likely demand ischemia. 16. History of asbestos exposure. PLAN: IV steroids, inhaled bronchodilators, supplemental oxygen, normal transfusion threshold. Monitor hemoglobin and hematocrit, monitor INR. Followup chest x-rays. Trend troponins. NAVDEEP ACOSTA M.D. [id number]
[2017-08-26] MEDS: methylPREDNISolone NA SUCC 40 MG/1 ML VIAL IVPUSH SCH ×3 (14:14→21:31)
[2017-08-26] MEDS ORDERED: guaiFENesin 200 MG/10 ML 10 ML UNIT-DOSE CUPS PO ONE (20:58)
--- NOTE | 2017-08-26 21:29 | CONSULT ---
Consult - text type - Consultation Consultation Note: Chart Reviewed , Patient examined, consult in chart. In summary, this is a 67 yr old with complex past medical history of CAD, CHF , COPD, s/p pacemaker and BioAVR presenting with symptomatic severe anemia , melena and supratherapeutic INR, in the setting of a large duodenal Ulcer. Agree with curent management of transfusion to HGB >8,and correct INR. If patient continues to bleed would recommend arteriography and embolization of GDA. Overall this is a poor candidate for surgical management and if it comes to a point that surgery becomes the alternative of last resort would consider transfer to a tertiary care facility with CCU care and would be happy to arrange if it becomes necessary.
[2017-08-26] MEDS: ATORVASTATIN CA 40 MG TABLET (FP) PO SCH (21:31)
[2017-08-26 21:32] LABS: MCH 27.5 pg (25.7-33.7); MCHC 31.9 g/dl (32.0-35.9); MEAN CELL VOLUME 86.3 fl (80-96); MEAN PLT VOLUME 8.1 fl (7.5-11.1); PLATELET COUNT 269 K/MM3 (134-434); RBC 2.46 M/mm3 (4.00-5.60); RDW 17.1 % (11.9-15.9); WHITE BLOOD COUNT 24.3 K/mm3 (4.0-10.0)
[2017-08-26 21:50] LABS: HEMATOCRIT 21.2 % (35.4-49); HEMOGLOBIN 6.8 GM/dL (11.7-16.9); INR 3.09 (0.82-1.09); PROTHROMBIN TIME (PATIENT) 34.9 SEC (9.7-13.0)
[2017-08-27] MEDS: ALBUTEROL SO4 2.5/IPRATROPIUM 0.5 INH SOL 3 ML VIAL.NEB. NEB SCH ×4 (07:15→21:00)
[2017-08-27 08:56] LABS: ALBUMIN 3.2 g/dl (3.4-5.0); ALK PHOS 153 U/L (45-117); ANION GAP 8 (8-16); BILIRUBIN,TOTAL 0.6 mg/dL (0.2-1.0); BLOOD UREA NITROGEN 16 mg/dL (7-18); CALCIUM 8.3 mg/dL (8.5-10.1); CHLORIDE 105 mmol/L (98-107); CO2 28 mmol/L (21-32); CREATININE 0.7 mg/dL (0.7-1.3); GLUCOSE,RANDOM 149 mg/dL (74-106); POTASSIUM 4.2 mmol/L (3.5-5.1); SGOT/AST 13 U/L (15-37); SGPT/ALT 24 U/L (12-78); SODIUM 141 mmol/L (136-145); TOT PROT 6.1 g/dl (6.4-8.2)
[2017-08-27 09:02] LABS: BASO % 0.1 % (0-2.0); HEMATOCRIT 23.6 % (35.4-49); HEMOGLOBIN 7.8 GM/dL (11.7-16.9); LYMPH % 0.9 % (8-40); MCH 27.9 pg (25.7-33.7); MEAN CELL VOLUME 84.4 fl (80-96); MEAN PLT VOLUME 8.5 fl (7.5-11.1); MONO % 0.6 % (3.8-10.2); NEUT % 98.4 % (42.8-82.8); PLATELET COUNT 257 K/MM3 (134-434); RBC 2.79 M/mm3 (4.00-5.60); RDW 17.1 % (11.9-15.9); WHITE BLOOD COUNT 23.4 K/mm3 (4.0-10.0)
[2017-08-27 09:05] LABS: INR 2.96 (0.82-1.09); PROTHROMBIN TIME (PATIENT) 33.5 SEC (9.7-13.0)
[2017-08-27] MEDS ORDERED: DEXTROSE 5%-WATER - 50 ML IVPB ONE (09:12)
[2017-08-27] MEDS ORDERED: cefTRIAXone SODIUM 1 GM VIAL ONE (09:12)
[2017-08-27] MEDS: CEFTRIAXONE 1 GM in DEXTROSE 5%-WATER - 50 ML IVPB SCH (09:39)
--- NOTE | 2017-08-27 09:40 | PN ---
Progress Note, Physician - Current Medication List Current Medications: Active Medications Albuterol/Ipratropium (Duoneb -) 1 amp NEB RQID [facility] Last Admin: 08/26/17 20:54 Dose: 1 amp Amlodipine Besylate (Norvasc -) 2.5 mg PO BID [facility] Last Admin: 08/26/17 21:31 Dose: 2.5 mg Atorvastatin Calcium (Lipitor -) 40 mg PO HS [facility] Last Admin: 08/26/17 21:31 Dose: 40 mg Ceftriaxone Sodium 1 gm/ (Dextrose) 50 mls @ 100 mls/hr IVPB DAILY [facility]; Protocol Last Admin: 08/26/17 09:59 Dose: 100 mls/hr Levetiracetam (Keppra -) 500 mg PO BID [facility] Last Admin: 08/26/17 21:31 Dose: 500 mg Methylprednisolone Sodium Succinate (Solu-Medrol -) 40 mg IVPUSH Q6H-IV [facility] Last Admin: 08/26/17 21:31 Dose: 40 mg Non-Formulary Medication (Mirabegron [Myrbetriq]) 25 mg PO DAILY [facility] Pantoprazole Sodium (Protonix Iv) 40 mg IVPUSH BID [facility] Last Admin: 08/26/17 21:30 Dose: 40 mg - Objective Vital Signs: Vital Signs Temperature 97.9 F 08/26/17 23:30 Pulse Rate 80 08/26/17 23:30 Respiratory Rate 18 08/26/17 23:30 Blood Pressure 113/64 08/26/17 23:30 O2 Sat by Pulse Oximetry (%) 98 08/26/17 21:00 Cardiovascular: Yes: S1, S2 Respiratory: Yes: Regular, CTA Bilaterally Gastrointestinal: Yes: Normal Bowel Sounds, Soft Labs: CBC, BMP 08/26/17 21:00 08/26/17 10:50 INR, PTT INR 3.09 (0.82-1.09) H D 08/26/17 21:00 Fibrinogen 411.0 mg/dL (238-498) 08/26/17 10:50 Problem List - Problems (1) Anemia Assessment/Plan: -Hb 6, FOBT positive -transfused 3 units -will Rpt CBC -Protonix 40mg IV BID -GI consult -for possible IR -AC held in light of bleeding Code(s): D64.9 - ANEMIA, UNSPECIFIED (2) Atrial fibrillation Assessment/Plan: -inr noted--cardio -hold Ac due to bleeding Code(s): I48.91 - UNSPECIFIED ATRIAL FIBRILLATION Qualifiers: Atrial fibrillation type: persistent Qualified Code(s): I48.1 - Persistent atrial fibrillation (3) Duodenal ulcer Assessment/Plan: IR consulted Code(s): K26.9 - DUODENAL ULCER, UNSP ACUTE OR CHRONIC, W/O HEMOR OR PERF (4) Elevated INR Assessment/Plan: -pt w/ INR >5 and no life threatening bleeding at this time -will hold coumadin --s/p FFP -rpt INR 3 Code(s): R79.1 - ABNORMAL COAGULATION PROFILE (5) GI bleeding Assessment/Plan: -as above Code(s): K92.2 - GASTROINTESTINAL HEMORRHAGE, UNSPECIFIED Qualifiers: GI bleed type/associated pathology: duodenal ulcer Qualified Code(s): K26.4 - Chronic or unspecified duodenal ulcer with hemorrhage (6) History of prosthetic aortic valve Assessment/Plan: -Requires rn long term care AC -hold for now--inr high and active bleeding -Cardio Code(s): Z95.2 - PRESENCE OF PROSTHETIC HEART VALVE (7) Pyuria Assessment/Plan: - possibly 2/2 UTI vs. Leukocyturia from malignancy -pt asymptomatic, but immunocompromised -urine cx ordered, will endorse to day team to f/u -Ceftriaxone 1g IV daily until cultures come back Code(s): N39.0 - URINARY TRACT INFECTION, SITE NOT SPECIFIED (8) COPD (chronic obstructive pulmonary disease) Assessment/Plan: -duonebs standing -symbicort -prednisone 40mg daily Code(s): J44.9 - CHRONIC OBSTRUCTIVE PULMONARY DISEASE, UNSPECIFIED Qualifiers: COPD type: chronic bronchitis (9) Troponin level elevated Assessment/Plan: -likely 2/2 demand ischemia, r/o ACS -EKG w/ ventricular paced rhythm, no signs of acute ischemia -trend troponin q6H -trend EKG in AM -cardiology consult -tele monitoring Laboratory Tests 08/25/17 08/26/17 23:33 10:50 Troponin I 0.15 H D 0.17 H Code(s): R74.8 - ABNORMAL LEVELS OF OTHER SERUM ENZYMES
[2017-08-27] MEDS: PANTOPRAZOLE SODIUM 40 MG VIAL IVPUSH SCH ×2 (09:45→21:28)
[2017-08-27] MEDS: levETIRAcetam 500 MG TABLET (FP) PO SCH ×2 (09:45→21:28)
[2017-08-27] MEDS: amLODIPine BESYLATE 2.5 MG TABLET (FP) PO SCH (09:45)
[2017-08-27] MEDS: methylPREDNISolone NA SUCC 40 MG/1 ML VIAL IVPUSH SCH ×4 (09:45→21:28)
--- NOTE | 2017-08-27 10:08 | PN ---
Progress Note, Physician History of Present Illness: Melena clearing, Hgb improving post transfusion, INR decreasing. IR awaiting appropriate INR for GDA embolization. - Current Medication List Current Medications: Active Medications Albuterol/Ipratropium (Duoneb -) 1 amp NEB RQID [facility] Last Admin: 08/27/17 07:15 Dose: 1 amp Amlodipine Besylate (Norvasc -) 2.5 mg PO BID [facility] Last Admin: 08/27/17 09:45 Dose: 2.5 mg Atorvastatin Calcium (Lipitor -) 40 mg PO HS [facility] Last Admin: 08/26/17 21:31 Dose: 40 mg Ceftriaxone Sodium 1 gm/ (Dextrose) 50 mls @ 100 mls/hr IVPB DAILY [facility]; Protocol Last Admin: 08/27/17 09:39 Dose: 100 mls/hr Levetiracetam (Keppra -) 500 mg PO BID [facility] Last Admin: 08/27/17 09:45 Dose: 500 mg Methylprednisolone Sodium Succinate (Solu-Medrol -) 40 mg IVPUSH Q6H-IV [facility] Last Admin: 08/27/17 09:45 Dose: 40 mg Non-Formulary Medication (Mirabegron [Myrbetriq]) 25 mg PO DAILY [facility] Pantoprazole Sodium (Protonix Iv) 40 mg IVPUSH BID [facility] Last Admin: 08/27/17 09:45 Dose: 40 mg - Objective Vital Signs: Vital Signs Temperature 97.9 F 08/26/17 23:30 Pulse Rate 80 08/26/17 23:30 Respiratory Rate 18 08/26/17 23:30 Blood Pressure 113/64 08/26/17 23:30 O2 Sat by Pulse Oximetry (%) 98 08/26/17 21:00 Constitutional: Yes: No Distress, Calm Neck: Yes: Supple Cardiovascular: Yes: Regular Rate and Rhythm Respiratory: Yes: Regular, Diminished Gastrointestinal: Yes: Normal Bowel Sounds, Soft Edema: No Labs: CBC, BMP 08/27/17 06:19 08/26/17 10:50 INR, PTT INR 2.96 (0.82-1.09) H 08/27/17 05:30 Fibrinogen 411.0 mg/dL (238-498) 08/26/17 10:50 Problem List - Problems (1) Atrial fibrillation Code(s): I48.91 - UNSPECIFIED ATRIAL FIBRILLATION Qualifiers: Atrial fibrillation type: persistent Qualified Code(s): I48.1 - Persistent atrial fibrillation (2) COPD (chronic obstructive pulmonary disease) Code(s): J44.9 - CHRONIC OBSTRUCTIVE PULMONARY DISEASE, UNSPECIFIED Qualifiers: COPD type: chronic bronchitis (3) Duodenal ulcer Code(s): K26.9 - DUODENAL ULCER, UNSP ACUTE OR CHRONIC, W/O HEMOR OR PERF (4) Acute blood loss anemia Code(s): D62 - ACUTE POSTHEMORRHAGIC ANEMIA (5) Anticoagulation excessive Code(s): [id number] - (6) Elevated INR Code(s): R79.1 - ABNORMAL COAGULATION PROFILE (7) GI bleeding Code(s): K92.2 - GASTROINTESTINAL HEMORRHAGE, UNSPECIFIED Qualifiers: GI bleed type/associated pathology: duodenal ulcer Qualified Code(s): K26.4 - Chronic or unspecified duodenal ulcer with hemorrhage (8) HTN (hypertension) Code(s): I10 - ESSENTIAL (PRIMARY) HYPERTENSION Qualifiers: Hypertension type: essential hypertension Qualified Code(s): I10 - Essential (primary) hypertension (9) History of melena Code(s): Z87.19 - PERSONAL HISTORY OF OTHER DISEASES OF THE DIGESTIVE SYSTEM (10) History of prosthetic aortic valve Code(s): Z95.2 - PRESENCE OF PROSTHETIC HEART VALVE (11) Lymphoma Code(s): C85.90 - NON-HODGKIN LYMPHOMA, UNSPECIFIED, UNSPECIFIED SITE Qualifiers: Lymphoma type: non-Hodgkin Non-Hodgkin lymphoma type: follicular Follicular lymphoma grade: grade II Lymphoma site: lower extremity Qualified Code(s): C82.15 - Follicular lymphoma grade II, lymph nodes of inguinal region and lower limb (12) Old cerebrovascular accident (CVA) without late effect Code(s): Z86.73 - PRSNL HX OF TIA (TIA), AND CEREB INFRC W/O RESID DEFICITS (13) Pacemaker Code(s): Z95.0 - PRESENCE OF CARDIAC PACEMAKER (14) Diastolic dysfunction without heart failure Code(s): I51.89 - OTHER ILL-DEFINED HEART DISEASES (15) Demand ischemia Code(s): I24.8 - OTHER FORMS OF ACUTE ISCHEMIC HEART DISEASE (16) Thoracic aortic aneurysm Code(s): I71.2 - THORACIC AORTIC ANEURYSM, WITHOUT RUPTURE Qualifiers: Presence of rupture: without rupture Qualified Code(s): I71.2 - Thoracic aortic aneurysm, without rupture Assessment/Plan 07/2016 Echo: Normal LV and RV size and fxn, severe LAE, mild EKTA, mild AR, MR, TR, normal prosthetic gradients, PPM wire in RV 1. Upper gastrointestinal bleed in context of supratherapeutic INR, duodenul ulcer, anemia post transfusion 2. CAD angina pectoris, evidence of demand ischemic injury related to above 3. Left ventricular diastolic dysfunction with chronic class 0-I [place] [employer] classification left ventricular failure, compensated/euvolemic. 4. Post re-operative AVR (bio-prosthesis) 5. Ascending thoracic aortic aneurysm post-surgical repair 6. AV block post permanent pacemaker implantation [employer] device 7. Persistent atrial fibrillation [id number] score of 5 on A/C therapy with supratherapeutic INR 8. History of cerebrovascular disease 9. HTN 10. Hypercholesterolemia 11. Follicular lymphoma receiving chemotherapy 12. Demand ischemia 13. COPD PLAN: 1. As outlined monitor CBC and transfuse to maintain Hg equal or > 8.0, trops have peaked 2. Patient has had 3 presentations for recurrent melena in context of supratherapeutic INR, would change to NOAC once INR<2 and hemostasis achieved since INR control has been suboptimal. Watchman device/AGUEDA closure (outpatient) implantation would be the final option, continue protonix and sucralfate with d/ c concomitant ASA 81 qd 3. Change Norvasc to Toprol XL 25 qd 4. Continue Lipitor 40 qhs 5. Will discuss plan of care with primary in tube conversion technician Dr. Alexis Wallace of [facility] [place], [place] 6. BD, empric abx, oral steroids with caution and GI protection 7. Consideration for gastroduodenal artery embolization once INR acceptable
--- NOTE | 2017-08-27 10:47 | PN ---
Progress Note, Physician History of Present Illness: pulmonary alert,less congested. - Current Medication List Current Medications: Active Medications Albuterol/Ipratropium (Duoneb -) 1 amp NEB RQID [facility] Last Admin: 08/27/17 07:15 Dose: 1 amp Atorvastatin Calcium (Lipitor -) 40 mg PO HS [facility] Last Admin: 08/26/17 21:31 Dose: 40 mg Ceftriaxone Sodium 1 gm/ (Dextrose) 50 mls @ 100 mls/hr IVPB DAILY [facility]; Protocol Last Admin: 08/27/17 09:39 Dose: 100 mls/hr Levetiracetam (Keppra -) 500 mg PO BID [facility] Last Admin: 08/27/17 09:45 Dose: 500 mg Methylprednisolone Sodium Succinate (Solu-Medrol -) 40 mg IVPUSH Q6H-IV [facility] Last Admin: 08/27/17 09:45 Dose: 40 mg Metoprolol Succinate (Toprol Xl -) 25 mg PO DAILY [facility] Non-Formulary Medication (Mirabegron [Myrbetriq]) 25 mg PO DAILY [facility] Pantoprazole Sodium (Protonix Iv) 40 mg IVPUSH BID [facility] Last Admin: 08/27/17 09:45 Dose: 40 mg - Objective Vital Signs: Vital Signs Temperature 98.5 F 08/27/17 10:00 Pulse Rate 80 08/27/17 10:00 Respiratory Rate 18 08/27/17 10:00 Blood Pressure 104/62 08/27/17 10:00 O2 Sat by Pulse Oximetry (%) 97 08/27/17 10:00 Constitutional: Yes: Well Nourished, Calm Eyes: Yes: WNL HENT: Yes: WNL Neck: Yes: WNL Cardiovascular: Yes: Pulse Irregular, S1, S2 Respiratory: Yes: Rhonchi (few scattered saida rhonchi) Gastrointestinal: Yes: Normal Bowel Sounds, Soft Extremities: Yes: WNL Edema: No Labs: CBC, BMP 08/27/17 06:19 08/27/17 06:00 INR, PTT INR 2.96 (0.82-1.09) H 08/27/17 05:30 Fibrinogen 411.0 mg/dL (238-498) 08/26/17 10:50 Problem List - Problems (1) COPD exacerbation Code(s): J44.1 - CHRONIC OBSTRUCTIVE PULMONARY DISEASE W (ACUTE) EXACERBATION (2) Anemia Code(s): D64.9 - ANEMIA, UNSPECIFIED (3) Atrial fibrillation Code(s): I48.91 - UNSPECIFIED ATRIAL FIBRILLATION Qualifiers: Atrial fibrillation type: persistent Qualified Code(s): I48.1 - Persistent atrial fibrillation (4) COPD (chronic obstructive pulmonary disease) Code(s): J44.9 - CHRONIC OBSTRUCTIVE PULMONARY DISEASE, UNSPECIFIED Qualifiers: COPD type: chronic bronchitis (5) Demand ischemia Code(s): I24.8 - OTHER FORMS OF ACUTE ISCHEMIC HEART DISEASE (6) Troponin level elevated Code(s): R74.8 - ABNORMAL LEVELS OF OTHER SERUM ENZYMES (7) Acute blood loss anemia Code(s): D62 - ACUTE POSTHEMORRHAGIC ANEMIA (8) Elevated INR Code(s): R79.1 - ABNORMAL COAGULATION PROFILE (9) GI bleeding Code(s): K92.2 - GASTROINTESTINAL HEMORRHAGE, UNSPECIFIED Qualifiers: GI bleed type/associated pathology: duodenal ulcer Qualified Code(s): K26.4 - Chronic or unspecified duodenal ulcer with hemorrhage (10) HTN (hypertension) Code(s): I10 - ESSENTIAL (PRIMARY) HYPERTENSION Qualifiers: Hypertension type: essential hypertension Qualified Code(s): I10 - Essential (primary) hypertension (11) History of prosthetic aortic valve Code(s): Z95.2 - PRESENCE OF PROSTHETIC HEART VALVE (12) Lymphoma Code(s): C85.90 - NON-HODGKIN LYMPHOMA, UNSPECIFIED, UNSPECIFIED SITE Qualifiers: Lymphoma type: non-Hodgkin Non-Hodgkin lymphoma type: follicular Follicular lymphoma grade: grade II Lymphoma site: lower extremity Qualified Code(s): C82.15 - Follicular lymphoma grade II, lymph nodes of inguinal region and lower limb (13) Old cerebrovascular accident (CVA) without late effect Code(s): Z86.73 - PRSNL HX OF TIA (TIA), AND CEREB INFRC W/O RESID DEFICITS Assessment/Plan IMP COPD EXACERBATION improving GI BLEED SYMPTOMATIC ANEMIA SUPRA-THERAPEUTIC INR S/P AVR AFIB CHF S/P PPM ASHD + TROPONINS LIKELY DEMAND ISCHEMIA FOLLICULAR LYMPHOMA H/O ASBESTOS EXPOSURE PLAN IV STEROIDS SAME DOSE INHALED BRONCHODILATORS SUPPLEMENTAL O2 TRANSFUSE MONITOR INR MONITOR CBC,H+H GI W/U IN PROGRESS F/U CHEST X-RAY TREND TROPONINS PROTONIX DR BRILL Problem List - Problems (1) COPD exacerbation Code(s): J44.1 - CHRONIC OBSTRUCTIVE PULMONARY DISEASE W (ACUTE) EXACERBATION (2) Anemia Code(s): D64.9 - ANEMIA, UNSPECIFIED (3) Atrial fibrillation Code(s): I48.91 - UNSPECIFIED ATRIAL FIBRILLATION Qualifiers: Atrial fibrillation type: persistent Qualified Code(s): I48.1 - Persistent atrial fibrillation (4) COPD (chronic obstructive pulmonary disease) Code(s): J44.9 - CHRONIC OBSTRUCTIVE PULMONARY DISEASE, UNSPECIFIED Qualifiers: COPD type: chronic bronchitis (5) Demand ischemia Code(s): I24.8 - OTHER FORMS OF ACUTE ISCHEMIC HEART DISEASE (6) Troponin level elevated Code(s): R74.8 - ABNORMAL LEVELS OF OTHER SERUM ENZYMES (7) Acute blood loss anemia Code(s): D62 - ACUTE POSTHEMORRHAGIC ANEMIA (8) Elevated INR Code(s): R79.1 - ABNORMAL COAGULATION PROFILE (9) GI bleeding Code(s): K92.2 - GASTROINTESTINAL HEMORRHAGE, UNSPECIFIED Qualifiers: GI bleed type/associated pathology: duodenal ulcer Qualified Code(s): K26.4 - Chronic or unspecified duodenal ulcer with hemorrhage (10) HTN (hypertension) Code(s): I10 - ESSENTIAL (PRIMARY) HYPERTENSION Qualifiers: Hypertension type: essential hypertension Qualified Code(s): I10 - Essential (primary) hypertension (11) History of prosthetic aortic valve Code(s): Z95.2 - PRESENCE OF PROSTHETIC HEART VALVE (12) Lymphoma Code(s): C85.90 - NON-HODGKIN LYMPHOMA, UNSPECIFIED, UNSPECIFIED SITE Qualifiers: Lymphoma type: non-Hodgkin Non-Hodgkin lymphoma type: follicular Follicular lymphoma grade: grade II Lymphoma site: lower extremity Qualified Code(s): C82.15 - Follicular lymphoma grade II, lymph nodes of inguinal region and lower limb (13) Old cerebrovascular accident (CVA) without late effect Code(s): Z86.73 - PRSNL HX OF TIA (TIA), AND CEREB INFRC W/O RESID DEFICITS
--- NOTE | 2017-08-27 14:18 | PN ---
Progress Note (short form) - Note Progress Note: Pt seen and examined Looks and feels better than yesterday. O/E: O/E: General: In chair, OOB , in no distress HEENT; NCAT COr: RRR Lungs: diffuse wheezing Extremities: no CCE Last Vital Signs Temp Pulse Resp BP Pulse Ox 98.5 F 80 18 104/62 97 08/27/17 10:00 08/27/17 10:00 08/27/17 10:00 08/27/17 10:00 08/27/17 10:00 CBC, BMP 08/27/17 06:19 08/27/17 06:00 Current Medications Generic Name Dose Route Start Last Admin Trade Name Freq PRN Reason Stop Dose Admin Albuterol/Ipratropium 1 amp 08/26/17 12:00 08/27/17 11:13 Duoneb - NEB 1 amp RQID [facility] Administration Atorvastatin Calcium 40 mg 08/26/17 22:00 08/26/17 21:31 Lipitor - PO 40 mg HS [facility] Administration Ceftriaxone Sodium 1 gm/ 50 mls @ 100 mls/hr 08/26/17 04:15 08/27/17 09:39 Dextrose IVPB 100 mls/hr DAILY [facility] Administration Protocol Levetiracetam 500 mg 08/26/17 10:00 08/27/17 09:45 Keppra - PO 500 mg BID [facility] Administration Methylprednisolone Sodium Succinate 40 mg 08/26/17 14:15 08/27/17 09:45 Solu-Medrol - IVPUSH 40 mg Q6H-IV [facility] Administration Metoprolol Succinate 25 mg 08/28/17 10:00 Toprol Xl - PO DAILY [facility] Non-Formulary Medication 25 mg 08/26/17 10:00 Mirabegron [Myrbetriq] PO DAILY [facility] Pantoprazole Sodium 40 mg 08/26/17 10:00 08/27/17 09:45 Protonix Iv IVPUSH 40 mg BID [facility] Administration Recurrent GIB/FL/COPD/CAD/CVA/Prosthetic aortic valve on AC for PRBCs today INR drifting down s/p FFP. d/w IR, will need to wait for INR to be drifted down ideally 1.5 , and likely will be a difficult embolization , but recommended to await stability in his Hemodynamics and report of CTA, last CT imagings reviewed, possible mass also being a component of the GIB?, but CTA can only be done--72hrs after oral contrast! d/w Cardio yesterday, likely consideration for NOACs once things stabilized Surgery note reviewed. will await above tests prior to further decisions ?RadOnc. d/w PMD d/w Regine over the phone.
--- NOTE | 2017-08-27 15:57 | PN ---
Progress Note, Physician History of Present Illness: No acute events, receiving PRBC. IR in the case, awaiting for INR/PT to be in acceptable range prior to exam. Pt is woody - Current Medication List Current Medications: Active Medications Albuterol/Ipratropium (Duoneb -) 1 amp NEB RQID [facility] Last Admin: 08/27/17 11:13 Dose: 1 amp Atorvastatin Calcium (Lipitor -) 40 mg PO HS [facility] Last Admin: 08/26/17 21:31 Dose: 40 mg Ceftriaxone Sodium 1 gm/ (Dextrose) 50 mls @ 100 mls/hr IVPB DAILY [facility]; Protocol Last Admin: 08/27/17 09:39 Dose: 100 mls/hr Levetiracetam (Keppra -) 500 mg PO BID [facility] Last Admin: 08/27/17 09:45 Dose: 500 mg Methylprednisolone Sodium Succinate (Solu-Medrol -) 40 mg IVPUSH Q6H-IV [facility] Last Admin: 08/27/17 09:45 Dose: 40 mg Metoprolol Succinate (Toprol Xl -) 25 mg PO DAILY [facility] Non-Formulary Medication (Mirabegron [Myrbetriq]) 25 mg PO DAILY [facility] Pantoprazole Sodium (Protonix Iv) 40 mg IVPUSH BID [facility] Last Admin: 08/27/17 09:45 Dose: 40 mg - Objective Vital Signs: Vital Signs Temperature 98.6 F 08/27/17 14:59 Pulse Rate 82 08/27/17 14:59 Respiratory Rate 22 08/27/17 14:59 Blood Pressure 110/56 08/27/17 14:59 O2 Sat by Pulse Oximetry (%) 97 08/27/17 10:00 Constitutional: Yes: No Distress, Calm, Pallor Gastrointestinal: Yes: Soft. No: Rectal Bleeding, Tenderness, Vomiting Neurological: Yes: Alert, Oriented Labs: CBC, BMP 08/27/17 06:19 08/27/17 06:00 INR, PTT INR 2.96 (0.82-1.09) H 08/27/17 05:30 Fibrinogen 411.0 mg/dL (238-498) 08/26/17 10:50 Laboratory Last Values WBC 23.4 K/mm3 (4.0-10.0) H 08/27/17 06:19 RBC 2.79 M/mm3 (4.00-5.60) L 08/27/17 06:19 Hgb 7.8 GM/dL (11.7-16.9) L D 08/27/17 06:19 Hct 23.6 % (35.4-49) L 08/27/17 06:19 MCV 84.4 fl (80-96) 08/27/17 06:19 MCH 27.9 pg (25.7-33.7) 08/27/17 06: MCHC 33.0 g/dl (32.0-35.9) 08/27/17 06:19 RDW 17.1 % (11.9-15.9) H 08/27/17 06:19 Plt Count 257 K/MM3 (134-434) 08/27/17 06: MPV 8.5 fl (7.5-11.1) 08/27/17 06:19 Absolute Neuts (auto) 23.0 # 08/27/17 06:19 Total Counted 100 08/25/17 23:33 Neutrophils % 98.4 % (42.8-82.8) H 08/27/17 06:19 Neutrophils % (Manual) 85.0 % (42.8-82.8) H 08/26/17 10:50 Band Neutrophils % 7.0 % 08/26/17 10:50 Lymphocytes % 0.9 % (8-40) L 08/27/17 06:19 Lymphocytes % (Manual) 2.0 % (8-40) L D 08/26/17 10:50 Monocytes % 0.6 % (3.8-10.2) L D 08/27/17 06:19 Monocytes % (Manual) 4 % (3.8-10.2) 08/26/17 10:50 Eosinophils % 0.0 % (0-4.5) D 08/27/17 06:19 Eosinophils % (Manual) 1.0 % (0-4.5) D 08/26/17 10:50 Basophils % 0.1 % (0-2.0) D 08/27/17 06:19 Basophils % (Manual) 0.0 % (0-2.0) 08/26/17 10:50 Myelocytes % (Man) 1 % (0-2) D 08/26/17 10:50 Promyelocytes % (Man) 0 % (0-2) 08/26/17 10:50 Blast Cells % (Manual) 0 % (0-0) 08/26/17 10:50 Nucleated RBC % 0 % (0-0) 08/27/17 06:19 Metamyelocytes 0 % (0-2) D 08/26/17 10:50 Toxic Granulation 1+ 08/26/17 10:50 Dohle Bodies 1+ 08/26/17 10:50 Platelet Estimate Normal 08/26/17 10:50 Polychromasia 2+ 08/26/17 10:50 Anisocytosis 1+ 08/26/17 10:50 Macrocytosis 1+ 08/26/17 10:50 Tear Drop Cells 1+ 08/26/17 10:50 Ovalocytes 1+ 08/26/17 10:50 Schistocytes 1+ 08/26/17 10:50 PT with INR 33.50 SEC (9.7-13.0) H 08/27/17 05:30 INR 2.96 (0.82-1.09) H 08/27/17 05:30 PTT (Actin FS) 45.9 SECONDS (26.9-34.4) H 08/26/17 10:50 Fibrinogen 411.0 mg/dL (238-498) 08/26/17 10:50 Sodium 141 mmol/L (136-145) 08/27/17 06:00 Potassium 4.2 mmol/L (3.5-5.1) 08/27/17 06:00 Chloride 105 mmol/L (98-107) 08/27/17 06:00 Carbon Dioxide 28 mmol/L (21-32) 08/27/17 06:00 Anion Gap 8 (8-16) 08/27/17 06:00 BUN 16 mg/dL (7-18) D 08/27/17 06:00 Creatinine 0.7 mg/dL (0.7-1.3) D 08/27/17 06:00 Creat Clearance w eGFR > 60 (>60) 08/27/17 06:00 Random Glucose 149 mg/dL (74-106) H D 08/27/17 06:00 Calcium 8.3 mg/dL (8.5-10.1) L 08/27/17 06:00 Phosphorus 3.6 mg/dL (2.5-4.9) 08/26/17 10:50 Magnesium 2.1 mg/dL (1.8-2.4) 08/26/17 10:50 Total Bilirubin 0.6 mg/dL (0.2-1.0) D 08/27/17 06:00 AST 13 U/L (15-37) L D 08/27/17 06:00 ALT 24 U/L (12-78) 08/27/17 06:00 Alkaline Phosphatase 153 U/L (45-117) H 08/27/17 06:00 Creatine Kinase 19 IU/L (39-308) L 08/25/17 23:33 Troponin I 0.17 ng/ml (0.00-0.05) H 08/26/17 10:50 Total Protein 6.1 g/dl (6.4-8.2) L 08/27/17 06:00 Albumin 3.2 g/dl (3.4-5.0) L 08/27/17 06:00 Lipase 173 U/L (73-393) 08/25/17 23:33 Urine Color Dkyellow 08/25/17 23:33 Urine Appearance Turbid 08/25/17 23:33 Urine pH 5.0 (5.0-8.0) 08/25/17 23:33 Ur Specific [place] 1.021 (1.001-1.035) 08/25/17 23:33 Urine Protein 1+ (NEGATIVE) H 08/25/17 23:33 Urine Glucose (UA) Negative (NEGATIVE) 08/25/17 23:33 Urine Ketones Trace (NEGATIVE) H 08/25/17 23:33 Urine Blood Negative (NEGATIVE) 08/25/17 23:33 Urine Nitrite Negative (NEGATIVE) 08/25/17 23:33 Urine Bilirubin Negative (<2.0 mg/dL) 08/25/17 23:33 Urine Urobilinogen 2.0 mg/dL (0.2-1.0) 08/25/17 23:33 Ur Leukocyte Esterase 3+ (NEGATIVE) H 08/25/17 23:33 Urine WBC (Auto) 1099 /hpf (3-5) 08/25/17 23:33 Urine RBC (Auto) 19 /hpf (0-3) 08/25/17 23:33 Ur Epithelial Cells Rare /HPF (FEW) 08/25/17 23:33 Urine Bacteria Many /hpf (NONE SEEN) 08/25/17 23:33 Urine Mucus Many 08/25/17 23:33 Stool Occult Blood Positive (NEGATIVE) 08/26/17 00:35 Blood Type A POSITIVE 08/25/17 23:33 Antibody Screen Negative 08/25/17 23:33 Crossmatch See Detail 08/25/17 23:33 Problem List - Problems (1) Duodenal ulcer Code(s): K26.9 - DUODENAL ULCER, UNSP ACUTE OR CHRONIC, W/O HEMOR OR PERF (2) Acute blood loss anemia Code(s): D62 - ACUTE POSTHEMORRHAGIC ANEMIA (3) Anticoagulation excessive Code(s): COC3462 - (4) GI bleeding Code(s): K92.2 - GASTROINTESTINAL HEMORRHAGE, UNSPECIFIED Qualifiers: GI bleed type/associated pathology: duodenal ulcer Qualified Code(s): K26.4 - Chronic or unspecified duodenal ulcer with hemorrhage (5) Lymphoma Code(s): C85.90 - NON-HODGKIN LYMPHOMA, UNSPECIFIED, UNSPECIFIED SITE Qualifiers: Lymphoma type: non-Hodgkin Non-Hodgkin lymphoma type: follicular Follicular lymphoma grade: grade II Lymphoma site: lower extremity Qualified Code(s): C82.15 - Follicular lymphoma grade II, lymph nodes of inguinal region and lower limb Assessment/Plan Close monitoring. IR angio. when INR/PT in range.
[2017-08-27] MEDS: ATORVASTATIN CA 40 MG TABLET (FP) PO SCH (21:28)
[2017-08-27 23:33] LABS: ANISOCYTOSIS 2+; MACROCYTOSIS 2+; OVALOCYTE 1+; PLATELET ESTIMATE ADEQUATE; TEAR DROP CELLS 1+
[2017-08-28] MEDS: methylPREDNISolone NA SUCC 40 MG/1 ML VIAL IVPUSH SCH ×2 (03:28→09:33)
[2017-08-28] MEDS: ALBUTEROL SO4 2.5/IPRATROPIUM 0.5 INH SOL 3 ML VIAL.NEB. NEB SCH ×4 (07:20→20:31)
--- NOTE | 2017-08-28 08:59 | PN ---
Progress Note, Physician History of Present Illness: No acute events, receiving PRBC. IR on the case, awaiting for INR/PT to be in acceptable range prior to exam - Current Medication List Current Medications: Active Medications Albuterol/Ipratropium (Duoneb -) 1 amp NEB RQID [facility] Last Admin: 08/28/17 07:20 Dose: 1 amp Atorvastatin Calcium (Lipitor -) 40 mg PO HS [facility] Last Admin: 08/27/17 21:28 Dose: 40 mg Ceftriaxone Sodium 1 gm/ (Dextrose) 50 mls @ 100 mls/hr IVPB DAILY [facility]; Protocol Last Admin: 08/27/17 09:39 Dose: 100 mls/hr Levetiracetam (Keppra -) 500 mg PO BID [facility] Last Admin: 08/27/17 21:28 Dose: 500 mg Methylprednisolone Sodium Succinate (Solu-Medrol -) 40 mg IVPUSH Q6H-IV [facility] Last Admin: 08/28/17 03:28 Dose: 40 mg Metoprolol Succinate (Toprol Xl -) 25 mg PO DAILY [facility] Non-Formulary Medication (Mirabegron [Myrbetriq]) 25 mg PO DAILY [facility] Pantoprazole Sodium (Protonix Iv) 40 mg IVPUSH BID [facility] Last Admin: 08/27/17 21:28 Dose: 40 mg - Objective Vital Signs: Vital Signs Temperature 97.8 F 08/28/17 06:00 Pulse Rate 81 08/28/17 06:00 Respiratory Rate 20 08/28/17 06:00 Blood Pressure 128/64 08/28/17 06:00 O2 Sat by Pulse Oximetry (%) 97 08/27/17 21:00 Neurological: Yes: Alert, Oriented Labs: INR, PTT INR 2.96 (0.82-1.09) H 08/27/17 05:30 Fibrinogen 411.0 mg/dL (238-498) 08/26/17 10:50 Laboratory Last Values WBC 23.4 K/mm3 (4.0-10.0) H 08/27/17 06:19 RBC 2.79 M/mm3 (4.00-5.60) L 08/27/17 06:19 Hgb 7.8 GM/dL (11.7-16.9) L D 08/27/17 06:19 Hct 23.6 % (35.4-49) L 08/27/17 06:19 MCV 84.4 fl (80-96) 08/27/17 06:19 MCH 27.9 pg (25.7-33.7) 08/27/17 06:19 MCHC 33.0 g/dl (32.0-35.9) 08/27/17 06:19 RDW 17.1 % (11.9-15.9) H 08/27/17 06:19 Plt Count 257 K/MM3 (134-434) 08/27/17 06:19 MPV 8.5 fl (7.5-11.1) 08/27/17 06:19 Absolute Neuts (auto) 23.0 # 08/27/17 06:19 Total Counted 100 08/27/17 06:19 Neutrophils % 98.4 % (42.8-82.8) H 08/27/17 06:19 Neutrophils % (Manual) 88.0 % (42.8-82.8) H 08/27/17 06:19 Band Neutrophils % 6.0 % 08/27/17 06:19 Lymphocytes % 0.9 % (8-40) L 08/27/17 06:19 Lymphocytes % (Manual) 5.0 % (8-40) L D 08/27/17 06:19 Monocytes % 0.6 % (3.8-10.2) L D 08/27/17 06:19 Monocytes % (Manual) 1 % (3.8-10.2) L 08/27/17 06:19 Eosinophils % 0.0 % (0-4.5) D 08/27/17 06:19 Eosinophils % (Manual) 1.0 % (0-4.5) D 08/26/17 10:50 Basophils % 0.1 % (0-2.0) D 08/27/17 06:19 Basophils % (Manual) 0.0 % (0-2.0) 08/26/17 10:50 Myelocytes % (Man) 1 % (0-2) D 08/26/17 10:50 Promyelocytes % (Man) 0 % (0-2) 08/26/17 10:50 Blast Cells % (Manual) 0 % (0-0) 08/26/17 10:50 Nucleated RBC % 0 % (0-0) 08/27/17 06:19 Metamyelocytes 0 % (0-2) D 08/26/17 10:50 Hypochromia 2+ 08/27/17 06:19 Toxic Granulation 1+ 08/26/17 10:50 Dohle Bodies 1+ 08/26/17 10:50 Platelet Estimate Adequate 08/27/17 06:19 Polychromasia 1+ 08/27/17 06:19 Anisocytosis 2+ 08/27/17 06:19 Microcytosis 2+ 08/27/17 06:19 Macrocytosis 2+ 08/27/17 06:19 Tear Drop Cells 1+ 08/27/17 06:19 Ovalocytes 1+ 08/27/17 06:19 Stomatocytes 1+ 08/27/17 06:19 Schistocytes 1+ 08/27/17 06:19 PT with INR 33.50 SEC (9.7-13.0) H 08/27/17 05:30 INR 2.96 (0.82-1.09) H 08/27/17 05:30 PTT (Actin FS) 45.9 SECONDS (26.9-34.4) H 08/26/17 10:50 Fibrinogen 411.0 mg/dL (238-498) 08/26/17 10:50 Sodium 141 mmol/L (136-145) 08/27/17 06:00 Potassium 4.2 mmol/L (3.5-5.1) 08/27/17 06:00 Chloride 105 mmol/L (98-107) 08/27/17 06:00 Carbon Dioxide 28 mmol/L (21-32) 08/27/17 06:00 Anion Gap 8 (8-16) 08/27/17 06:00 BUN 16 mg/dL (7-18) D 08/27/17 06:00 Creatinine 0.7 mg/dL (0.7-1.3) D 08/27/17 06:00 Creat Clearance w eGFR > 60 (>60) 08/27/17 06:00 Random Glucose 149 mg/dL (74-106) H D 08/27/17 06:00 Calcium 8.3 mg/dL (8.5-10.1) L 08/27/17 06:00 Phosphorus 3.6 mg/dL (2.5-4.9) 08/26/17 10:50 Magnesium 2.1 mg/dL (1.8-2.4) 08/26/17 10:50 Total Bilirubin 0.6 mg/dL (0.2-1.0) D 08/27/17 06:00 AST 13 U/L (15-37) L D 08/27/17 06:00 ALT 24 U/L (12-78) 08/27/17 06:00 Alkaline Phosphatase 153 U/L (45-117) H 08/27/17 06:00 Creatine Kinase 19 IU/L (39-308) L 08/25/17 23:33 Troponin I 0.17 ng/ml (0.00-0.05) H 08/26/17 10:50 Total Protein 6.1 g/dl (6.4-8.2) L 08/27/17 06:00 Albumin 3.2 g/dl (3.4-5.0) L 08/27/17 06:00 Lipase 173 U/L (73-393) 08/25/17 23:33 Urine Color Dkyellow 08/25/17 23:33 Urine Appearance Turbid 08/25/17 23:33 Urine pH 5.0 (5.0-8.0) 08/25/17 23:33 Ur Specific [place] 1.021 (1.001-1.035) 08/25/17 23:33 Urine Protein 1+ (NEGATIVE) H 08/25/17 23:33 Urine Glucose (UA) Negative (NEGATIVE) 08/25/17 23:33 Urine Ketones Trace (NEGATIVE) H 08/25/17 23:33 Urine Blood Negative (NEGATIVE) 08/25/17 23:33 Urine Nitrite Negative (NEGATIVE) 08/25/17 23:33 Urine Bilirubin Negative (<2.0 mg/dL) 08/25/17 23:33 Urine Urobilinogen 2.0 mg/dL (0.2-1.0) 08/25/17 23:33 Ur Leukocyte Esterase 3+ (NEGATIVE) H 08/25/17 23:33 Urine WBC (Auto) 1099 /hpf (3-5) 08/25/17 23:33 Urine RBC (Auto) 19 /hpf (0-3) 08/25/17 23:33 Ur Epithelial Cells Rare /HPF (FEW) 08/25/17 23:33 Urine Bacteria Many /hpf (NONE SEEN) 08/25/17 23:33 Urine Mucus Many 08/25/17 23:33 Stool Occult Blood Positive (NEGATIVE) 08/26/17 00:35 Blood Type A POSITIVE 08/25/17 23:33 Antibody Screen Negative 08/25/17 23:33 Crossmatch See Detail 08/25/17 23:33 Problem List - Problems (1) Duodenal ulcer Code(s): K26.9 - DUODENAL ULCER, UNSP ACUTE OR CHRONIC, W/O HEMOR OR PERF (2) Acute blood loss anemia Code(s): D62 - ACUTE POSTHEMORRHAGIC ANEMIA (3) Anticoagulation excessive Code(s): [id number] - (4) GI bleeding Code(s): K92.2 - GASTROINTESTINAL HEMORRHAGE, UNSPECIFIED Qualifiers: GI bleed type/associated pathology: duodenal ulcer Qualified Code(s): K26.4 - Chronic or unspecified duodenal ulcer with hemorrhage (5) Lymphoma Code(s): C85.90 - NON-HODGKIN LYMPHOMA, UNSPECIFIED, UNSPECIFIED SITE Qualifiers: Lymphoma type: non-Hodgkin Non-Hodgkin lymphoma type: follicular Follicular lymphoma grade: grade II Lymphoma site: lower extremity Qualified Code(s): C82.15 - Follicular lymphoma grade II, lymph nodes of inguinal region and lower limb Assessment/Plan Continue current care, am labs
[2017-08-28 09:01] LABS: BASO % 0.2 % (0-2.0); HEMOGLOBIN 9.8 GM/dL (11.7-16.9); LYMPH % 0.8 % (8-40); MCH 27.5 pg (25.7-33.7); MCHC 32.6 g/dl (32.0-35.9); MEAN CELL VOLUME 84.4 fl (80-96); MEAN PLT VOLUME 8.6 fl (7.5-11.1); MONO % 2.3 % (3.8-10.2); NEUT % 96.7 % (42.8-82.8); PLATELET COUNT 285 K/MM3 (134-434); RBC 3.56 M/mm3 (4.00-5.60); WHITE BLOOD COUNT 20.3 K/mm3 (4.0-10.0)
[2017-08-28 09:21] LABS: CHLORIDE 104 mmol/L (98-107); POTASSIUM 3.9 mmol/L (3.5-5.1); SODIUM 140 mmol/L (136-145)
[2017-08-28] MEDS ORDERED: cefTRIAXone SODIUM 1 GM VIAL ONE (09:21)
[2017-08-28] MEDS ORDERED: DEXTROSE 5%-WATER - 50 ML IVPB ONE (09:21)
[2017-08-28 09:33] LABS: INR 3.39 (0.82-1.09); PROTHROMBIN TIME (PATIENT) 38.3 SEC (9.7-13.0)
[2017-08-28] MEDS: metoPROLOL SUCCINATE 25 MG TAB.SR.24H (FP) PO SCH (09:34)
[2017-08-28] MEDS: PANTOPRAZOLE SODIUM 40 MG VIAL IVPUSH SCH ×2 (09:34→21:00)
[2017-08-28] MEDS: CEFTRIAXONE 1 GM in DEXTROSE 5%-WATER - 50 ML IVPB SCH (09:34)
[2017-08-28] MEDS: levETIRAcetam 500 MG TABLET (FP) PO SCH ×2 (09:34→21:00)
[2017-08-28 09:37] LABS: ALBUMIN 3.5 g/dl (3.4-5.0); ALK PHOS 143 U/L (45-117); ANION GAP 10 (8-16); BILIRUBIN,TOTAL 0.8 mg/dL (0.2-1.0); BLOOD UREA NITROGEN 18 mg/dL (7-18); CALCIUM 8.9 mg/dL (8.5-10.1); CO2 26 mmol/L (21-32); CREATININE 0.7 mg/dL (0.7-1.3); GLUCOSE,RANDOM 146 mg/dL (74-106); SGOT/AST 14 U/L (15-37); SGPT/ALT 23 U/L (12-78); TOT PROT 6.8 g/dl (6.4-8.2)
--- NOTE | 2017-08-28 09:40 | PN ---
Progress Note, Physician - Current Medication List Current Medications: Active Medications Albuterol/Ipratropium (Duoneb -) 1 amp NEB RQID [facility] Last Admin: 08/28/17 07:20 Dose: 1 amp Atorvastatin Calcium (Lipitor -) 40 mg PO HS [facility] Last Admin: 08/27/17 21:28 Dose: 40 mg Ceftriaxone Sodium 1 gm/ (Dextrose) 50 mls @ 100 mls/hr IVPB DAILY [facility]; Protocol Last Admin: 08/28/17 09:34 Dose: 100 mls/hr Levetiracetam (Keppra -) 500 mg PO BID [facility] Last Admin: 08/28/17 09:34 Dose: 500 mg Methylprednisolone Sodium Succinate (Solu-Medrol -) 40 mg IVPUSH Q6H-IV [facility] Last Admin: 08/28/17 09:33 Dose: 40 mg Metoprolol Succinate (Toprol Xl -) 25 mg PO DAILY [facility] Last Admin: 08/28/17 09:34 Dose: 25 mg Non-Formulary Medication (Mirabegron [Myrbetriq]) 25 mg PO DAILY [facility] Pantoprazole Sodium (Protonix Iv) 40 mg IVPUSH BID [facility] Last Admin: 08/28/17 09:34 Dose: 40 mg - Objective Vital Signs: Vital Signs Temperature 97.8 F 08/28/17 06:00 Pulse Rate 81 08/28/17 06:00 Respiratory Rate 20 08/28/17 06:00 Blood Pressure 128/64 08/28/17 06:00 O2 Sat by Pulse Oximetry (%) 97 08/27/17 21:00 Cardiovascular: Yes: S1, S2 Respiratory: Yes: Regular, CTA Bilaterally Gastrointestinal: Yes: Normal Bowel Sounds, Soft Labs: CBC, BMP 08/28/17 08:36 INR, PTT INR 2.96 (0.82-1.09) H 08/27/17 05:30 Fibrinogen 411.0 mg/dL (238-498) 08/26/17 10:50 Problem List - Problems (1) Anemia Assessment/Plan: -Hb 6, FOBT positive -transfused 3 units -will Rpt CBC -Protonix 40mg IV BID -GI consult -for possible IR--CTA -AWAITING INR -AC held in light of bleeding Code(s): D64.9 - ANEMIA, UNSPECIFIED (2) Atrial fibrillation Assessment/Plan: -inr noted--cardio -hold Ac due to bleeding Code(s): I48.91 - UNSPECIFIED ATRIAL FIBRILLATION Qualifiers: Atrial fibrillation type: persistent Qualified Code(s): I48.1 - Persistent atrial fibrillation (3) Duodenal ulcer Assessment/Plan: IR consulted CTA ONCE INR 1.5 Code(s): K26.9 - DUODENAL ULCER, UNSP ACUTE OR CHRONIC, W/O HEMOR OR PERF (4) Elevated INR Assessment/Plan: -pt w/ INR >5 and no life threatening bleeding at this time -will hold coumadin --s/p FFP -rpt INR 3 Code(s): R79.1 - ABNORMAL COAGULATION PROFILE (5) GI bleeding Assessment/Plan: -as above Code(s): K92.2 - GASTROINTESTINAL HEMORRHAGE, UNSPECIFIED Qualifiers: GI bleed type/associated pathology: duodenal ulcer Qualified Code(s): K26.4 - Chronic or unspecified duodenal ulcer with hemorrhage (6) History of prosthetic aortic valve Assessment/Plan: -Requires [facility] AC -hold for now--inr high and active bleeding -Cardio Code(s): Z95.2 - PRESENCE OF PROSTHETIC HEART VALVE (7) Pyuria Assessment/Plan: -pt asymptomatic, but immunocompromised -ID CONSULT -Ceftriaxone 1g IV daily until cultures come back Microbiology 08/26/17 05:20 Urine - Urine Clean Catch Urine Culture - Preliminary Lactose Fermenting Neg Bacilli Code(s): N39.0 - URINARY TRACT INFECTION, SITE NOT SPECIFIED (8) COPD (chronic obstructive pulmonary disease) Assessment/Plan: -duonebs standing -symbicort -prednisone 40mg daily Code(s): J44.9 - CHRONIC OBSTRUCTIVE PULMONARY DISEASE, UNSPECIFIED Qualifiers: COPD type: chronic bronchitis (9) Troponin level elevated Code(s): R74.8 - ABNORMAL LEVELS OF OTHER SERUM ENZYMES
--- NOTE | 2017-08-28 10:14 | CON.ID ---
Consult Consult Specialty:: infectious disease Referred by:: daniel Reason for Consultation:: UTI - History of Present Illness Chief Complaint: black stools History of Present Illness: 67 year old man with lymphoma, avr on coumadin, recent GI bleed, s/p EGD 07/17 with DU returns with melena and anemia and supratherapeutic INR plan for IR intervention for DU after INR improves he was noted to have leukocytosis and pyuria and started on ceftriaxone- now day #3 recent chemo 08/19 R-CVP s/p transfusion for anemia no fevers or chills no dysuria no flank pain - History Source History Provided By: Patient, Medical Record Limitations to Obtaining History: No Limitations - Past Medical History [employer]: Yes: CVA Cardio/Vascular: Yes: AFIB, HTN, Hyperlipdemia, Other (AVR) Pulmonary: Yes: COPD Gastrointestinal: Yes: GI Bleed (egd 07/17/17 DU, colonoscopyy 07/17 multiple polyps ), Peptic Ulcer Disease Heme/Onc: Yes: Other (lymphoma) Infectious Disease: Yes: MRSA - Past Surgical History Past Surgical History: Yes: Valve Replacement Additional Surgical History: PPM, AVR, Transverse aortic arch graft - Alcohol/Substance Use Hx Alcohol Use: No History of Substance Use: reports: None - Smoking History Smoking history: Never smoked Have you smoked in the past 12 months: No Aproximately how many cigarettes per day: 8 If you are a former smoker, when did you quit?: 30 YRS - Social History Usual Living Arrangement: With Spouse ADL: Independent 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 Place of : [facility] History of Recent Travel: No Home Medications - Allergies Allergies/Adverse Reactions: Allergies Allergy/AdvReac Type Severity Reaction Status Date / Time No Known Drug Allergies Allergy Verified 02/11/17 11:18 - Home Medications Home Medications: Ambulatory Orders Atorvastatin Ca [Lipitor] 40 mg PO HS 01/12/17 Warfarin Sodium [Coumadin] 7.5 mg PO DAILY 01/12/17 Amlodipine Besylate [Norvasc -] 2.5 mg PO BID tablet 01/21/17 levETIRAcetam [Keppra -] 500 mg PO BID tablet 02/24/17 Ascorbate Calcium [Vitamin C] 500 mg PO DAILY 08/07/17 Aspirin [ASA -] 81 mg PO DAILY 08/07/17 Mirabegron [Myrbetriq] 25 mg PO DAILY 08/07/17 Multivit-Min/FA/Lycopen/Lutein [Centrum Silver Men Tablet] 1 each PO DAILY 08/07 Pantoprazole Sodium 40 mg PO BID 08/07/17 Zinc Sulfate 220 mg PO DAILY 08/07/17 Family Disease History - Family Disease History Family History: Denies Review of Systems - Review of Systems Constitutional: reports: No Symptoms Eyes: reports: No Symptoms HENT: reports: No Symptoms Neck: reports: No Symptoms Cardiovascular: reports: No Symptoms Respiratory: reports: No Symptoms Gastrointestinal: reports: No Symptoms Genitourinary: reports: No Symptoms Breasts: reports: No Symptoms Reported Musculoskeletal: reports: No Symptoms Integumentary: reports: No Symptoms Neurological: reports: No Symptoms Physical Exam Vital Signs: Vital Signs Temperature 97.8 F 08/28/17 06:00 Pulse Rate 81 08/28/17 06:00 Respiratory Rate 20 08/28/17 06:00 Blood Pressure 128/64 08/28/17 06:00 O2 Sat by Pulse Oximetry (%) 97 08/27/17 21:00 Constitutional: Yes: Well Nourished, No Distress, Calm Eyes: Yes: Conjunctiva Clear HENT: Yes: Atraumatic, Normocephalic Neck: Yes: Supple Cardiovascular: Yes: Regular Rate and Rhythm Respiratory: Yes: Regular, CTA Bilaterally Gastrointestinal: Yes: Normal Bowel Sounds ...Rectal Exam: Yes: Deferred Renal/: No: Bladder Distention, CVA Tenderness - Left, CVA Tenderness - Right , Block Present Extremities: Yes: WNL, Other (venous stasis changes) Edema: No Psychiatric: Yes: Alert, Oriented Labs: CBC, BMP 08/28/17 08:36 08/28/17 08:36 Laboratory Tests 08/25/17 23:33 Ur Leukocyte Esterase 3+ H Urine WBC (Auto) 1099 Urine RBC (Auto) 19 Ur Epithelial Cells Rare Urine Bacteria Many Urine Mucus Many Microbiology 08/26/17 05:20 Urine - Urine Clean Catch Urine Culture - Preliminary Lactose Fermenting Neg Bacilli Imaging - Results Chest X-ray: Report Reviewed Problem List - Problems (1) UTI (urinary tract infection) Code(s): N39.0 - URINARY TRACT INFECTION, SITE NOT SPECIFIED (2) Lymphoma Code(s): C85.90 - NON-HODGKIN LYMPHOMA, UNSPECIFIED, UNSPECIFIED SITE Qualifiers: Lymphoma type: non-Hodgkin Non-Hodgkin lymphoma type: follicular Follicular lymphoma grade: grade II Lymphoma site: lower extremity Qualified Code(s): C82.15 - Follicular lymphoma grade II, lymph nodes of inguinal region and lower limb (3) Anemia Code(s): D64.9 - ANEMIA, UNSPECIFIED (4) History of prosthetic aortic valve Code(s): Z95.2 - PRESENCE OF PROSTHETIC HEART VALVE (5) MRSA (methicillin resistant staph aureus) culture positive Code(s): Z22.322 - CARRIER OR SUSPECTED CARRIER OF METHICILLIN RESIS STAPH Assessment/Plan would f/u urine culture continue rocephin now day #3 no value to blood cultures now that he is on day #3 antibiotics for IR intervention when INR acceptable leukocytosis may be multifactorial- both recent prednisone, ?neulasta, and possible UTI contact isolation for prior wound culture MRSA
[2017-08-28 10:15] LABS: ANISOCYTOSIS 1+; PLATELET ESTIMATE NORMAL; TARGET CELLS 1+; TEAR DROP CELLS 1+
--- NOTE | 2017-08-28 10:21 | PN ---
Progress Note (short form) - Note Progress Note: PULMONARY OOB TO CHAIR STRESSED OVER MEDICAL CONDITION VSS/AFEBRILE DIMINISHED BREATH SOUNDS S1S2 PACED BS+ SOFT NONTENDER B/L VENOUS STASIS CHANGES LABS/MEDS/NOTES/IMAGES/MICRO REVIEWED HGB 9.8GMS IMP COPD EXACERBATION RESOLVED GI BLEED SYMPTOMATIC ANEMIA THERAPEUTIC INR S/P AVR AFIB CHF S/P PPM ASHD FOLLICULAR LYMPHOMA H/O ASBESTOS EXPOSURE UTI PLAN IV STEROIDS TO TAPER ANTIBIOTICS INHALED BRONCHODILATORS SUPPLEMENTAL O2 TRANSFUSE REQUIRED MONITOR INR MONITOR CBC,H+H GI W/U IN PROGRESS F/U CHEST X-RAYS ROOSEVELT SCHMIDT MD
--- NOTE | 2017-08-28 12:57 | PN ---
Progress Note (short form) - Note Progress Note: Pt seen and examined Denies c/o O/E: General: In chair, OOB , in no distress HEENT; NCAT COr: RRR Lungs: diffuse wheezing Extremities: no CCE Last Vital Signs Temp Pulse Resp BP Pulse Ox 98.5 F 80 18 104/62 97 08/27/17 10:00 08/27/17 10:00 08/27/17 10:00 08/27/17 10:00 08/27/17 10:00 CBC, BMP 08/27/17 06:19 08/27/17 06:00 Current Medications Generic Name Dose Route Start Last Admin Trade Name Freq PRN Reason Stop Dose Admin Albuterol/Ipratropium 1 amp 08/26/17 12:00 08/27/17 11:13 Duoneb - NEB 1 amp RQID DIANE Administration Atorvastatin Calcium 40 mg 08/26/17 22:00 08/26/17 21:31 Lipitor - PO 40 mg HS DIANE Administration Ceftriaxone Sodium 1 gm/ 50 mls @ 100 mls/hr 08/26/17 04:15 08/27/17 09:39 Dextrose IVPB 100 mls/hr DAILY DIANE Administration Protocol Levetiracetam 500 mg 08/26/17 10:00 08/27/17 09:45 Keppra - PO 500 mg BID DIANE Administration Methylprednisolone Sodium Succinate 40 mg 08/26/17 14:15 08/27/17 09:45 Solu-Medrol - IVPUSH 40 mg Q6H-IV DIANE Administration Metoprolol Succinate 25 mg 08/28/17 10:00 Toprol Xl - PO DAILY DIANE Non-Formulary Medication 25 mg 08/26/17 10:00 Mirabegron [Myrbetriq] PO DAILY DIANE Pantoprazole Sodium 40 mg 08/26/17 10:00 08/27/17 09:45 Protonix Iv IVPUSH 40 mg BID DIANE Administration Recurrent GIB/FL/COPD/CAD/CVA/Prosthetic aortic valve on AC CBC stable today INR still high, small dose of PO vitk./FFP d/w IR, suggest problem might be controlled if INR drops,might not need intervention/?risk for embolization/but may also be recurrent once he is back on AC.Surgical eval here noted. d/w too today to consider tertiary center if no intervention planned here when INR normalizes. will d/w cardiology team.
[2017-08-28] MEDS ORDERED: PHYTONADIONE 5 MG TABLET PO ONE (13:00)
--- NOTE | 2017-08-28 14:15 | PN ---
Progress Note, Physician History of Present Illness: Melena clearing, Hgb improving post transfusion, IR awaiting appropriate INR for GDA embolization, given vit K 2.8 mg orally. - Current Medication List Current Medications: Active Medications Albuterol/Ipratropium (Duoneb -) 1 amp NEB RQID [facility] Last Admin: 08/28/17 11:19 Dose: 1 amp Atorvastatin Calcium (Lipitor -) 40 mg PO HS [facility] Last Admin: 08/27/17 21:28 Dose: 40 mg Ceftriaxone Sodium 1 gm/ (Dextrose) 50 mls @ 100 mls/hr IVPB DAILY [facility]; Protocol Last Admin: 08/28/17 09:34 Dose: 100 mls/hr Levetiracetam (Keppra -) 500 mg PO BID [facility] Last Admin: 08/28/17 09:34 Dose: 500 mg Methylprednisolone Sodium Succinate (Solu-Medrol -) 40 mg IVPUSH Q8H-IV [facility] Metoprolol Succinate (Toprol Xl -) 25 mg PO DAILY [facility] Last Admin: 08/28/17 09:34 Dose: 25 mg Non-Formulary Medication (Mirabegron [Myrbetriq]) 25 mg PO DAILY [facility] Pantoprazole Sodium (Protonix Iv) 40 mg IVPUSH BID [facility] Last Admin: 08/28/17 09:34 Dose: 40 mg - Objective Vital Signs: Vital Signs Temperature 98.5 F 08/28/17 10:00 Pulse Rate 81 08/28/17 10:00 Respiratory Rate 20 08/28/17 10:00 Blood Pressure 115/62 08/28/17 10:00 O2 Sat by Pulse Oximetry (%) 99 08/28/17 10:00 Constitutional: Yes: No Distress, Calm Neck: Yes: Supple Cardiovascular: Yes: Regular Rate and Rhythm Respiratory: Yes: Regular, Diminished Gastrointestinal: Yes: Soft, Hypoactive Bowel Sounds, Melena Edema: No Labs: CBC, BMP 08/28/17 08:36 08/28/17 08:36 INR, PTT INR 3.39 (0.82-1.09) H 08/28/17 08:36 Fibrinogen 411.0 mg/dL (238-498) 08/26/17 10:50 Problem List - Problems (1) Atrial fibrillation Code(s): I48.91 - UNSPECIFIED ATRIAL FIBRILLATION Qualifiers: Atrial fibrillation type: persistent Qualified Code(s): I48.1 - Persistent atrial fibrillation (2) COPD (chronic obstructive pulmonary disease) Code(s): J44.9 - CHRONIC OBSTRUCTIVE PULMONARY DISEASE, UNSPECIFIED Qualifiers: COPD type: chronic bronchitis (3) Duodenal ulcer Code(s): K26.9 - DUODENAL ULCER, UNSP ACUTE OR CHRONIC, W/O HEMOR OR PERF (4) Acute blood loss anemia Code(s): D62 - ACUTE POSTHEMORRHAGIC ANEMIA (5) Anticoagulation excessive Code(s): MAS0075 - (6) Elevated INR Code(s): R79.1 - ABNORMAL COAGULATION PROFILE (7) GI bleeding Code(s): K92.2 - GASTROINTESTINAL HEMORRHAGE, UNSPECIFIED Qualifiers: GI bleed type/associated pathology: duodenal ulcer Qualified Code(s): K26.4 - Chronic or unspecified duodenal ulcer with hemorrhage (8) HTN (hypertension) Code(s): I10 - ESSENTIAL (PRIMARY) HYPERTENSION Qualifiers: Hypertension type: essential hypertension Qualified Code(s): I10 - Essential (primary) hypertension (9) History of melena Code(s): Z87.19 - PERSONAL HISTORY OF OTHER DISEASES OF THE DIGESTIVE SYSTEM (10) History of prosthetic aortic valve Code(s): Z95.2 - PRESENCE OF PROSTHETIC HEART VALVE (11) Lymphoma Code(s): C85.90 - NON-HODGKIN LYMPHOMA, UNSPECIFIED, UNSPECIFIED SITE Qualifiers: Lymphoma type: non-Hodgkin Non-Hodgkin lymphoma type: follicular Follicular lymphoma grade: grade II Lymphoma site: lower extremity Qualified Code(s): C82.15 - Follicular lymphoma grade II, lymph nodes of inguinal region and lower limb (12) Old cerebrovascular accident (CVA) without late effect Code(s): Z86.73 - PRSNL HX OF TIA (TIA), AND CEREB INFRC W/O RESID DEFICITS (13) Pacemaker Code(s): Z95.0 - PRESENCE OF CARDIAC PACEMAKER (14) Diastolic dysfunction without heart failure Code(s): I51.89 - OTHER ILL-DEFINED HEART DISEASES (15) Demand ischemia Code(s): I24.8 - OTHER FORMS OF ACUTE ISCHEMIC HEART DISEASE (16) Thoracic aortic aneurysm Code(s): I71.2 - THORACIC AORTIC ANEURYSM, WITHOUT RUPTURE Qualifiers: Presence of rupture: without rupture Qualified Code(s): I71.2 - Thoracic aortic aneurysm, without rupture Assessment/Plan 07/2016 Echo: Normal LV and RV size and fxn, severe LAE, mild EKTA, mild AR, MR, TR, normal prosthetic gradients, PPM wire in RV 1. Upper gastrointestinal bleed in context of supratherapeutic INR, duodenul ulcer, anemia post transfusion 2. CAD angina pectoris, evidence of demand ischemic injury related to above 3. Left ventricular diastolic dysfunction with chronic class 0-I [place] [employer] classification left ventricular failure, compensated/euvolemic. 4. Post re-operative AVR (bio-prosthesis) 5. Ascending thoracic aortic aneurysm post-surgical repair 6. AV block post permanent pacemaker implantation [employer] device 7. Persistent atrial fibrillation [id number] score of 5 on A/C therapy with supratherapeutic INR 8. History of cerebrovascular disease 9. HTN 10. Hypercholesterolemia 11. Follicular lymphoma receiving chemotherapy 12. Demand ischemia 13. COPD PLAN: 1. As outlined monitor CBC and transfuse to maintain Hg equal or > 8.0, trops have peaked 2. Patient has had 3 presentations for recurrent melena in context of supratherapeutic INR, would change to NOAC once INR<2 and hemostasis achieved since INR control has been suboptimal. Watchman device/AGUEDA closure (outpatient) implantation would be the final option, continue protonix and sucralfate with d/ c concomitant ASA 81 qd 3. Continue Toprol XL 25 qd 4. Continue Lipitor 40 qhs 5. Will discuss plan of care with primary community development manager Dr. Alexis Wallace of [facility] 6. BD, empric abx, IV steroids with caution and GI protection 7. Consideration for gastroduodenal artery embolization once INR acceptable
--- NOTE | 2017-08-28 17:15 | PN ---
Progress Note (short form) - Note Progress Note: After discussion with Dr Hill, Placed a call to [facility] ) for patient to be transferred under Dr Enmanuel Juarez-Oncology ) for possible GDA embolization. Pt's Larry Car Operator is at [facility] Medical records faxed to f- [phone], Attn: Carrie. My contact number and contact number for Sandy Tyler provided. Awaiting chart review and acceptance.
[2017-08-28] MEDS ORDERED: methylPREDNISolone NA SUCC 40 MG/1 ML VIAL IVPUSH SCH (18:00)
[2017-08-28] MEDS: SUCRALFATE 1 GM/10 ML UNIT DOSE CUPS PO SCH ×2 (18:48→21:00)
[2017-08-28] MEDS: ATORVASTATIN CA 40 MG TABLET (FP) PO SCH (21:00)
[2017-08-29 07:52] LABS: BASO % 0.1 % (0-2.0); HEMATOCRIT 29.1 % (35.4-49); HEMOGLOBIN 9.6 GM/dL (11.7-16.9); LYMPH % 2.3 % (8-40); MEAN CELL VOLUME 84.8 fl (80-96); MEAN PLT VOLUME 7.9 fl (7.5-11.1); MONO % 7.5 % (3.8-10.2); NEUT % 90.1 % (42.8-82.8); PLATELET COUNT 227 K/MM3 (134-434); RBC 3.43 M/mm3 (4.00-5.60); RDW 17.2 % (11.9-15.9); WHITE BLOOD COUNT 15.4 K/mm3 (4.0-10.0)
[2017-08-29 08:08] LABS: INR 2.06 (0.82-1.09); PROTHROMBIN TIME (PATIENT) 23.3 SEC (9.7-13.0)
[2017-08-29 08:21] LABS: ALBUMIN 3.2 g/dl (3.4-5.0); ALK PHOS 121 U/L (45-117); ANION GAP 5 (8-16); BILIRUBIN,TOTAL 0.6 mg/dL (0.2-1.0); BLOOD UREA NITROGEN 18 mg/dL (7-18); CALCIUM 8.6 mg/dL (8.5-10.1); CHLORIDE 104 mmol/L (98-107); CO2 32 mmol/L (21-32); CREATININE 0.8 mg/dL (0.7-1.3); GLUCOSE,RANDOM 100 mg/dL (74-106); POTASSIUM 4.5 mmol/L (3.5-5.1); SGOT/AST 13 U/L (15-37); SGPT/ALT 24 U/L (12-78); SODIUM 141 mmol/L (136-145); TOT PROT 6.1 g/dl (6.4-8.2)
[2017-08-29] MEDS: ALBUTEROL SO4 2.5/IPRATROPIUM 0.5 INH SOL 3 ML VIAL.NEB. NEB SCH ×4 (08:25→21:10)
--- NOTE | 2017-08-29 10:03 | PN ---
Progress Note (short form) - Note Progress Note: PULMONARY OOB TO CHAIR STRESSED OVER MEDICAL CONDITION VSS/AFEBRILE DIMINISHED BREATH SOUNDS S1S2 PACED BS+ SOFT NONTENDER B/L VENOUS STASIS CHANGES LABS/MEDS/NOTES/IMAGES/MICRO REVIEWED HGB 9.6GMS CARDIO INPUT REVIEWED IMP COPD EXACERBATION RESOLVED GI BLEED SYMPTOMATIC ANEMIA THERAPEUTIC INR S/P AVR AFIB CHF S/P PPM ASHD FOLLICULAR LYMPHOMA H/O ASBESTOS EXPOSURE UTI PLAN IV STEROIDS DISCONTINUED ANTIBIOTICS INHALED BRONCHODILATORS SUPPLEMENTAL O2 TRANSFUSE REQUIRED MONITOR INR MONITOR CBC,H+H GI W/U IN PROGRESS F/U CHEST X-RAYS ROOSEVELT SCHMIDT MD
[2017-08-29] MEDS: metoPROLOL SUCCINATE 25 MG TAB.SR.24H (FP) PO SCH (10:29)
[2017-08-29] MEDS: levETIRAcetam 500 MG TABLET (FP) PO SCH ×2 (10:29→22:00)
[2017-08-29] MEDS: SUCRALFATE 1 GM/10 ML UNIT DOSE CUPS PO SCH ×4 (10:30→22:00)
[2017-08-29] MEDS: PANTOPRAZOLE SODIUM 40 MG VIAL IVPUSH SCH ×2 (10:30→22:00)
--- NOTE | 2017-08-29 10:46 | PN ---
Progress Note (short form) - Note Progress Note: Chief Complaint: Events noted, noted reviewed. Denies any chest pain or dyspnea , no further bleed reported, GI F/U regarding proceeding with EGD to be performed once INR < 2.0 History of Present Illness: Seen and examined in the ICU. Events noted, noted reviewed. Denies any chest pain or dyspnea, no further bleed reported, GI F/U regarding proceeding with EGD to be performed once INR < 2.0 As outlined in prior notes patient requires A/C indefinitely considering his [id number] score of 5, only other alternative if LA appendage is in situ consideration for Watchman device/AGUEDA closure (outpatient) implantation, but since source of bleeding is probably PUD which is treatable I feel that should not be the first option, I would consider DOAC's if INR remains unstable. - Current Medication List Current Medications Albuterol/Ipratropium (Duoneb -) 1 amp NEB Q4H PRN PRN Reason: SHORTNESS OF BREATH Pantoprazole Sodium 160 mg/ (Dextrose) 290 mls @ 14.5 mls/hr IVPB Q20H [facility] Last Admin: 08/10/17 21:44 Dose: 14.5 mls/hr Magnesium Oxide (Mag-Ox -) 400 mg PO BID [facility] Last Admin: 08/10/17 21:47 Dose: 400 mg Metoprolol Succinate (Toprol Xl -) 25 mg PO DAILY [facility] Last Admin: 08/10/17 09:22 Dose: 25 mg Oxymetazoline HCl (Afrin -) 2 spray NS Q12H PRN PRN Reason: NASAL CONGESTION Last Admin: 08/10/17 10:22 Dose: 2 spray Sucralfate (Carafate Oral Suspension -) 1 gm PO Q6HPO [facility] Last Admin: 08/11/17 05:55 Dose: 1 gm - Review of Systems Constitutional: denies: Chills, Fever Cardiovascular: As noted above Respiratory: denies: Cough Or Sputum Production Gastrointestinal: denies: Nausea, Vomiting, Diarrhea, Constipation or Abdominal Pain Genitourinary: denies: Dysuria Neurological: denies: Dizziness or Headaches Endocrine: denies: Intolerance to Cold, Intolerance to Heat - Objective Vital Signs: Last Vital Signs Temp Pulse Resp BP Pulse Ox 98.6 F 80 20 102/68 95 08/11/17 06:00 05/29/18 06:00 08/11/17 06:00 08/11/17 06:00 08/10/17 19:53 Intake & Output 08/08/17 08/09/17 08/10/17 08/11/17 23:59 23:59 23:59 23:59 Intake Total 1275 1706 2048 274 Output Total 200 Balance 1275 1706 1848 274 Weight 240 lb 7 oz 231 lb 11.293 oz 231 lb 232 lb 7 oz Constitutional: No Distress, Calm, Thin Neck: Supple Negative JVD Respiratory: Diminished Breath Sounds at the Bases Cardiovascular: S1 S2 Regular Rate and Rhythm Grade 2/6 systolic ejection murmur Gastrointestinal: Soft Benign Normal Bowel Sounds Ext: No Edema Labs: CBC, BMP 08/11/17 05:30 INR, PTT INR 2.74 (0.82-1.09) H 08/10/17 05:20 CBC and INR pending from this AM Assessment/Plan ASSESSMENT: 1. Upper gastro-intestinal bleed, peptic ulcer disease, anemia post transfusion 2. CAD angina pectoris, evidence of demand ischemic injury related to above 3. Systolic left ventricular dysfunction with chronic class 0-I [place] [employer] classification left ventricular failure, compensated/euvolemic. 4. Post re-operative AVR (bio-prosthesis) 5. Ascending thoracic aortic aneurysm post-surgical repair 6. AV block post permanent pacemaker implantation [employer] device 7. Paroxysmal atrial fibrillation [id number] score of 5 on A/C therapy with Coumadin on hold, today's INR pending 8. History of cerebro-vascular disease 9. HTN 10. Hypercholesterolemia 11. Follicular lymphoma receiving chemotherapy PLAN: 1. As outlined monitor CBC and transfuse to maintain Hg equal or > 8.0 2. As outlined in prior notes avoid Vitamin K administration, if needed if active bleed may give FFP 3. Continue Toprol XL, hemodynamics permitting 4. Continue Lipitor therapy 5. As outlined above in reference to A/C alternatives 6. EGD as per GI service once INR < 2.0, there are no absolute contraindications in proceeding with planned procedure considering that there is no evidence of ACS and/or de-compensated CHF and/or malignant ventricular arrhythmia Stephanie Miranda M.D.
--- NOTE | 2017-08-29 10:49 | PN ---
Progress Note (short form) - Note Progress Note: Chief Complaint: Events noted, noted reviewed. Denies any chest pain or dyspnea , reports dark tarry stool, denies any nausea or vomiting History of Present Illness: Seen and examined on telemetry. Events noted, noted reviewed. Denies any chest pain or dyspnea, reports dark tarry stool, denies any nausea or vomiting As outlined in prior notes from recent hospitalization patient requires A/C indefinitely considering his [id number] score of 5, only other alternative if LA appendage is in situ consideration for Watchman device/AGUEDA closure ( outpatient) implantation, but since source of bleeding is probably PUD which is treatable I feel that should not be the first option, I utilize would DOAC's related to INR instability Also question role of CTA or invasive angiograhy in absence of active bleed, recommend treating his PUD aggressively, withholding A/C resumption for at least 3-4 weeks and then initiating DOAc therapy - Current Medication List Current Medications Albuterol/Ipratropium (Duoneb -) 1 amp NEB RQID [facility] Last Admin: 08/29/17 08:25 Dose: 1 amp Atorvastatin Calcium (Lipitor -) 40 mg PO HS [facility] Last Admin: 08/28/17 21:00 Dose: 40 mg Levetiracetam (Keppra -) 500 mg PO BID [facility] Last Admin: 08/29/17 10:29 Dose: 500 mg Metoprolol Succinate (Toprol Xl -) 25 mg PO DAILY [facility] Last Admin: 08/29/17 10:29 Dose: 25 mg Non-Formulary Medication (Mirabegron [Myrbetriq]) 25 mg PO DAILY [facility] Pantoprazole Sodium (Protonix Iv) 40 mg IVPUSH BID [facility] Last Admin: 08/29/17 10:30 Dose: 40 mg Sucralfate (Carafate Oral Suspension -) 1 gm PO QID [facility] Last Admin: 08/29/17 10:30 Dose: 1 gm - Review of Systems Constitutional: denies: Chills, Fever Cardiovascular: As noted above Respiratory: denies: Cough Or Sputum Production Gastrointestinal: denies: Nausea, Vomiting, Diarrhea, Constipation or Abdominal Pain Genitourinary: denies: Dysuria Neurological: denies: Dizziness or Headaches Endocrine: denies: Intolerance to Cold, Intolerance to Heat - Objective Vital Signs: Last Vital Signs Temp Pulse Resp BP Pulse Ox 97.8 F 80 18 117/67 98 08/29/17 01:56 08/29/17 01:56 08/29/17 01:56 08/29/17 01:56 08/28/17 20:37 Intake & Output 08/26/17 08/27/17 08/28/17 08/29/17 23:59 23:59 23:59 23:59 Intake Total 805 750 271 Output Total 1000 620 900 Balance -195 130 -629 Weight 249 lb 0.6 oz Constitutional: No Distress, Calm, Thin Neck: Supple Negative JVD Respiratory: Diminished Breath Sounds at the Bases Cardiovascular: S1 S2 Regular Rate and Rhythm Grade 2/6 systolic ejection murmur Gastrointestinal: Soft Benign Normal Bowel Sounds Ext: No Edema Labs: CBC, BMP 08/29/17 07:35 08/29/17 07:35 INR, PTT INR 2.06 (0.82-1.09) H D 08/29/17 07:35 Fibrinogen 411.0 mg/dL (238-498) 08/26/17 10:50 Assessment/Plan ASSESSMENT: 1. Upper gastro-intestinal bleed, peptic ulcer disease, anemia post transfusion 2. CAD angina pectoris, evidence of demand ischemic injury related to above 3. Systolic left ventricular dysfunction with chronic class 0-I [place] [employer] classification left ventricular failure, compensated/euvolemic. 4. Post re-operative AVR (bio-prosthesis) 5. Ascending thoracic aortic aneurysm post-surgical repair 6. AV block post permanent pacemaker implantation [employer] device 7. Paroxysmal atrial fibrillation [id number] score of 5 on A/C therapy with Coumadin on hold, resumption of therapy as outlined above 8. History of cerebro-vascular disease 9. HTN 10. Hypercholesterolemia 11. Follicular lymphoma receiving chemotherapy PLAN: 1. Monitor CBC and transfuse to maintain Hg equal or > 8.0 2. Continue Toprol XL, hemodynamics permitting 3. Continue Lipitor therapy 4. As outlined above in reference to A/C alternatives, recommend DOAC's in 3-4 weeks 5. As noted above in reference to proceeding with CTA or invasive angiography in absence of active bleed Above was reviewed in detail with the patient Stephanie Miranda M.D.
--- NOTE | 2017-08-29 13:20 | PN ---
Progress Note, Physician Chief Complaint: EVENTS AND NOTES REVIEWED PATIENT IS AWAKE AND ALERT ON LIQUID DIET AC ON HOLD FOR LIKELY PUD GI BLEED. - Current Medication List Current Medications: Active Medications Albuterol/Ipratropium (Duoneb -) 1 amp NEB RQID [facility] Last Admin: 08/29/17 08:25 Dose: 1 amp Atorvastatin Calcium (Lipitor -) 40 mg PO HS [facility] Last Admin: 08/28/17 21:00 Dose: 40 mg Levetiracetam (Keppra -) 500 mg PO BID [facility] Last Admin: 08/29/17 10:29 Dose: 500 mg Metoprolol Succinate (Toprol Xl -) 25 mg PO DAILY [facility] Last Admin: 08/29/17 10:29 Dose: 25 mg Non-Formulary Medication (Mirabegron [Myrbetriq]) 25 mg PO DAILY [facility] Pantoprazole Sodium (Protonix Iv) 40 mg IVPUSH BID [facility] Last Admin: 08/29/17 10:30 Dose: 40 mg Sucralfate (Carafate Oral Suspension -) 1 gm PO QID [facility] Last Admin: 08/29/17 10:30 Dose: 1 gm - Objective Vital Signs: Vital Signs Temperature 98.5 F 08/29/17 10:00 Pulse Rate 78 08/29/17 10:00 Respiratory Rate 18 08/29/17 10:00 Blood Pressure 143/78 08/29/17 10:00 O2 Sat by Pulse Oximetry (%) 97 08/29/17 10:00 Constitutional: Yes: Mild Distress Eyes: Yes: WNL HENT: Yes: WNL Neck: Yes: WNL Cardiovascular: Yes: Pulse Irregular, Murmur Respiratory: Yes: WNL Gastrointestinal: Yes: WNL Genitourinary: Yes: Incontinence Musculoskeletal: Yes: Muscle Weakness Extremities: Yes: Other Edema: Yes Edema: LLE: 1+, RLE: 1+ Peripheral Pulses WNL: Yes Neurological: Yes: Pre-Existing Deficit ...Motor Strength: LLE, RLE Psychiatric: Yes: WNL Labs: CBC, BMP 08/29/17 07:35 08/29/17 07:35 INR, PTT INR 2.06 (0.82-1.09) H D 08/29/17 07:35 Fibrinogen 411.0 mg/dL (238-498) 06/13/18 10:50 Problem List - Problems (1) Old cerebrovascular accident without late effect Code(s): Z86.73 - PRSNL HX OF TIA (TIA), AND CEREB INFRC W/O RESID DEFICITS (2) Anemia Code(s): D64.9 - ANEMIA, UNSPECIFIED (3) Atrial fibrillation Code(s): I48.91 - UNSPECIFIED ATRIAL FIBRILLATION Qualifiers: Atrial fibrillation type: persistent Qualified Code(s): I48.1 - Persistent atrial fibrillation (4) COPD (chronic obstructive pulmonary disease) Code(s): J44.9 - CHRONIC OBSTRUCTIVE PULMONARY DISEASE, UNSPECIFIED Qualifiers: COPD type: chronic bronchitis (5) COPD exacerbation Code(s): J44.1 - CHRONIC OBSTRUCTIVE PULMONARY DISEASE W (ACUTE) EXACERBATION (6) Demand ischemia Code(s): I24.8 - OTHER FORMS OF ACUTE ISCHEMIC HEART DISEASE (7) Diastolic dysfunction without heart failure Code(s): I51.89 - OTHER ILL-DEFINED HEART DISEASES (8) Duodenal ulcer Code(s): K26.9 - DUODENAL ULCER, UNSP ACUTE OR CHRONIC, W/O HEMOR OR PERF (9) Pyuria Code(s): N39.0 - URINARY TRACT INFECTION, SITE NOT SPECIFIED (10) Acute blood loss anemia Code(s): D62 - ACUTE POSTHEMORRHAGIC ANEMIA (11) Duodenal ulcer Code(s): K26.9 - DUODENAL ULCER, UNSP ACUTE OR CHRONIC, W/O HEMOR OR PERF (12) Elevated INR Code(s): R79.1 - ABNORMAL COAGULATION PROFILE (13) GI bleeding Code(s): K92.2 - GASTROINTESTINAL HEMORRHAGE, UNSPECIFIED Qualifiers: GI bleed type/associated pathology: duodenal ulcer Qualified Code(s): K26.4 - Chronic or unspecified duodenal ulcer with hemorrhage (14) History of heart valve repair Code(s): Z98.890 - OTHER SPECIFIED POSTPROCEDURAL STATES (15) History of melena Code(s): Z87.19 - PERSONAL HISTORY OF OTHER DISEASES OF THE DIGESTIVE SYSTEM (16) History of prosthetic aortic valve Code(s): Z95.2 - PRESENCE OF PROSTHETIC HEART VALVE (17) Lymphoma Code(s): C85.90 - NON-HODGKIN LYMPHOMA, UNSPECIFIED, UNSPECIFIED SITE Qualifiers: Lymphoma type: non-Hodgkin Non-Hodgkin lymphoma type: follicular Follicular lymphoma grade: grade II Lymphoma site: lower extremity Qualified Code(s): C82.15 - Follicular lymphoma grade II, lymph nodes of inguinal region and lower limb Assessment/Plan INR 2.06 STILL HAVING DARK STOOLS ON LIQUID DIET PATIENT GETTING DEPRESSED OVER HIS CONDITION AWAIT GI FOR EGD? AC ON HOLD 1 MORE DAY TOMORROW THEN BY THURSDAY WILL DISCUSS WITH TEAM ABOUT AC, CARDIOLOGY NOTE APPRECIATED AND PLAN OUTLINED BY DR RICHMOND WILL DISCUSS DETAILS WITH DR JOSH HOLLIDAY COPD ON NEBS 02 SUPPORT
--- NOTE | 2017-08-29 13:51 | PN ---
Progress Note (short form) - Note Progress Note: Pt seen and examined chart reviewed Events noted d/w yesterday O/E: General: In chair, OOB , in no distress HEENT; NCAT COr: RRR Lungs: clear Extremities: no CCE Last Vital Signs Temp Pulse Resp BP Pulse Ox 98.5 F 78 18 143/78 97 08/29/17 10:00 08/29/17 10:00 08/29/17 10:00 08/29/17 10:00 08/29/17 10:00 CBC, BMP 08/29/17 07:35 08/29/17 07:35 Current Medications Generic Name Dose Route Start Last Admin Trade Name Freq PRN Reason Stop Dose Admin Albuterol/Ipratropium 1 amp 08/26/17 12:00 08/29/17 12:36 Duoneb - NEB 1 amp RQID [facility] Administration Atorvastatin Calcium 40 mg 08/26/17 22:00 08/28/17 21:00 Lipitor - PO 40 mg HS [facility] Administration Levetiracetam 500 mg 08/26/17 10:00 08/29/17 10:29 Keppra - PO 500 mg BID [facility] Administration Metoprolol Succinate 25 mg 08/28/17 10:00 08/29/17 10:29 Toprol Xl - PO 25 mg DAILY [facility] Administration Non-Formulary Medication 25 mg 08/26/17 10:00 Mirabegron [Myrbetriq] PO DAILY [facility] Pantoprazole Sodium 40 mg 08/26/17 10:00 08/29/17 10:30 Protonix Iv IVPUSH 40 mg BID [facility] Administration Sucralfate 1 gm 08/28/17 18:00 08/29/17 10:30 Carafate Oral Suspension - PO 1 gm QID [facility] Administration Recurrent GIB/FL/COPD/CAD/CVA/Prosthetic aortic valve on AC Recurrent GIB: Has large duodenal ulcer CBC stable today INR - 2.0 today work-up/Rx/initiation of AC : Plan per other consultants/appreciate all recs. Follicular Lymphoma: resumption of chemotherapy and PET-CT for treatment response would be done as an OP once acute issues resolved. ?diet advance d/w pt. / RN
[2017-08-29] MEDS: ATORVASTATIN CA 40 MG TABLET (FP) PO SCH (22:07)
[2017-08-30 08:37] LABS: BASO % 0.1 % (0-2.0); EOS % 0.5 % (0-4.5); HEMOGLOBIN 10.1 GM/dL (11.7-16.9); LYMPH % 4.9 % (8-40); MCHC 32.8 g/dl (32.0-35.9); MEAN CELL VOLUME 85.5 fl (80-96); MEAN PLT VOLUME 7.8 fl (7.5-11.1); MONO % 9.9 % (3.8-10.2); NEUT % 84.6 % (42.8-82.8); PLATELET COUNT 207 K/MM3 (134-434); RBC 3.62 M/mm3 (4.00-5.60); RDW 17.5 % (11.9-15.9); WHITE BLOOD COUNT 13.7 K/mm3 (4.0-10.0)
[2017-08-30] MEDS: ALBUTEROL SO4 2.5/IPRATROPIUM 0.5 INH SOL 3 ML VIAL.NEB. NEB SCH ×4 (08:46→21:05)
[2017-08-30 08:47] LABS: INR 1.5 (0.82-1.09); PROTHROMBIN TIME (PATIENT) 16.9 SEC (9.7-13.0)
[2017-08-30 09:08] LABS: ALBUMIN 3.2 g/dl (3.4-5.0); ANION GAP 5 (8-16); BLOOD UREA NITROGEN 18 mg/dL (7-18); CALCIUM 8.6 mg/dL (8.5-10.1); CHLORIDE 105 mmol/L (98-107); CO2 32 mmol/L (21-32); GLUCOSE,RANDOM 72 mg/dL (74-106); POTASSIUM 4.9 mmol/L (3.5-5.1); SODIUM 142 mmol/L (136-145)
[2017-08-30 09:12] LABS: ALK PHOS 116 U/L (45-117); BILIRUBIN,TOTAL 0.7 mg/dL (0.2-1.0); CREATININE 0.9 mg/dL (0.7-1.3); SGOT/AST 16 U/L (15-37); SGPT/ALT 28 U/L (12-78)
--- NOTE | 2017-08-30 09:46 | PN ---
Progress Note (short form) - Note Progress Note: Chief Complaint: Events noted, noted reviewed. Denies any chest pain or dyspnea , denies any further dark tarry stool, denies any nausea or vomiting, reports cough History of Present Illness: Seen and examined on telemetry. Events noted, noted reviewed. Denies any chest pain or dyspnea, denies any further dark tarry stool, denies any nausea or vomiting, reports cough As outlined in prior notes from recent hospitalization patient requires A/C indefinitely considering his [id number] score of 5, only other alternative if LA appendage is in situ consideration for Watchman device/AGUEDA closure ( outpatient) implantation, but since source of bleeding is probably PUD which is treatable I feel that should not be the first option, I utilize would DOAC's related to INR instability Also as outlined question role of CTA or invasive angiograhy in absence of active bleed, recommend treating his PUD aggressively, withholding A/C therapy resumption for at least 3-4 weeks and then initiating DOAC therapy as an alternative to Coumadin, related to INR instability - Current Medication List Current Medications Albuterol/Ipratropium (Duoneb -) 1 amp NEB RQID [facility] Last Admin: 08/29/17 21:10 Dose: 1 amp Atorvastatin Calcium (Lipitor -) 40 mg PO HS [facility] Last Admin: 08/29/17 22:07 Dose: 40 mg Levetiracetam (Keppra -) 500 mg PO BID [facility] Last Admin: 08/29/17 22:00 Dose: 500 mg Metoprolol Succinate (Toprol Xl -) 25 mg PO DAILY [facility] Last Admin: 08/29/17 10:29 Dose: 25 mg Non-Formulary Medication (Mirabegron [Myrbetriq]) 25 mg PO DAILY [facility] Pantoprazole Sodium (Protonix Iv) 40 mg IVPUSH BID [facility] Last Admin: 08/29/17 22:00 Dose: 40 mg Sucralfate (Carafate Oral Suspension -) 1 gm PO QID [facility] Last Admin: 08/29/17 22:00 Dose: 1 gm - Review of Systems Constitutional: denies: Chills, Fever Cardiovascular: As noted above Respiratory: reports: Cough denies: Sputum Production Gastrointestinal: denies: Nausea, Vomiting, Diarrhea, Constipation or Abdominal Pain Genitourinary: denies: Dysuria Neurological: denies: Dizziness or Headaches Endocrine: denies: Intolerance to Cold, Intolerance to Heat - Objective Vital Signs: Last Vital Signs Temp Pulse Resp BP Pulse Ox 97.6 F 83 18 118/66 94 L 08/30/17 06:42 08/30/17 06:42 08/30/17 06:42 08/30/17 06:42 08/29/17 21:00 Intake & Output 08/27/17 08/28/17 08/29/17 08/30/17 23:59 23:59 23:59 23:59 Intake Total 750 271 130 Output Total 620 900 Balance 130 -629 130 Constitutional: No Distress, Calm, Thin Neck: Supple Negative JVD Respiratory: Diminished Breath Sounds at the Bases Cardiovascular: S1 S2 Regular Rate and Rhythm Grade 2/6 systolic ejection murmur Gastrointestinal: Soft Benign Normal Bowel Sounds Ext: No Edema Labs: CBC, BMP 08/30/17 08:15 08/30/17 08:15 Assessment/Plan ASSESSMENT: 1. Upper gastro-intestinal bleed, peptic ulcer disease, anemia post transfusion , stable H/H 2. CAD angina pectoris, evidence of demand ischemic injury related to above 3. Systolic left ventricular dysfunction with chronic class 0-I [place] [employer] classification left ventricular failure, compensated/euvolemic. 4. Post re-operative AVR (bio-prosthesis) 5. Ascending thoracic aortic aneurysm post-surgical repair 6. AV block post permanent pacemaker implantation [employer] device 7. Paroxysmal atrial fibrillation [id number] score of 5 on A/C therapy with Coumadin on hold, resumption of therapy as outlined above 8. History of cerebro-vascular disease 9. HTN 10. Hypercholesterolemia 11. Follicular lymphoma receiving chemotherapy PLAN: 1. Monitor CBC and transfuse to maintain Hg equal or > 8.0 2. Continue Toprol XL, hemodynamics permitting 3. Continue Lipitor therapy 4. As outlined above in reference to A/C alternatives, recommend initiation of DOAC's in 3-4 weeks 5. As noted above in reference to proceeding with CTA or invasive angiography in absence of active bleed should be deferred Above was reviewed in detail with the patient Stephanie Miranda M.D.
[2017-08-30] MEDS: levETIRAcetam 500 MG TABLET (FP) PO SCH ×2 (10:02→22:22)
[2017-08-30] MEDS: SUCRALFATE 1 GM/10 ML UNIT DOSE CUPS PO SCH ×4 (10:02→22:22)
[2017-08-30] MEDS: metoPROLOL SUCCINATE 25 MG TAB.SR.24H (FP) PO SCH (10:02)
[2017-08-30] MEDS: PANTOPRAZOLE SODIUM 40 MG VIAL IVPUSH SCH ×2 (10:02→22:23)
--- NOTE | 2017-08-30 12:03 | PN ---
Progress Note (short form) - Note Progress Note: PULMONARY VSS/AFEBRILE DIMINISHED BREATH SOUNDS S1S2 PACED BS+ SOFT NONTENDER B/L VENOUS STASIS CHANGES LABS/MEDS/NOTES/IMAGES/MICRO REVIEWED HGB 9.6GMS CARDIO INPUT REVIEWED IMP COPD EXACERBATION RESOLVED GI BLEED SYMPTOMATIC ANEMIA THERAPEUTIC INR S/P AVR AFIB CHF S/P PPM ASHD FOLLICULAR LYMPHOMA H/O ASBESTOS EXPOSURE UTI PLAN IV STEROIDS DISCONTINUED ANTIBIOTICS INHALED BRONCHODILATORS SUPPLEMENTAL O2 TRANSFUSE REQUIRED MONITOR INR MONITOR CBC,H+H GI W/U IN PROGRESS F/U CHEST X-RAYS ROOSEVELT SCHMIDT MD
--- NOTE | 2017-08-30 12:11 | PN ---
Progress Note, Physician Chief Complaint: awake alert coughing denies chest pain or sob - Current Medication List Current Medications: Active Medications Albuterol/Ipratropium (Duoneb -) 1 amp NEB RQID [facility] Last Admin: 08/30/17 11:47 Dose: 1 amp Atorvastatin Calcium (Lipitor -) 40 mg PO HS [facility] Last Admin: 08/29/17 22:07 Dose: 40 mg Levetiracetam (Keppra -) 500 mg PO BID [facility] Last Admin: 08/30/17 10:02 Dose: 500 mg Metoprolol Succinate (Toprol Xl -) 25 mg PO DAILY [facility] Last Admin: 08/30/17 10:02 Dose: 25 mg Non-Formulary Medication (Mirabegron [Myrbetriq]) 25 mg PO DAILY [facility] Pantoprazole Sodium (Protonix Iv) 40 mg IVPUSH BID [facility] Last Admin: 08/30/17 10:02 Dose: 40 mg Sucralfate (Carafate Oral Suspension -) 1 gm PO QID [facility] Last Admin: 08/30/17 10:02 Dose: 1 gm - Objective Vital Signs: Vital Signs Temperature 98.5 F 08/30/17 10:00 Pulse Rate 80 08/30/17 10:00 Respiratory Rate 18 08/30/17 10:00 Blood Pressure 106/58 08/30/17 10:00 O2 Sat by Pulse Oximetry (%) 94 L 08/30/17 10:00 Constitutional: Yes: Mild Distress Eyes: Yes: WNL HENT: Yes: WNL Neck: Yes: WNL Cardiovascular: Yes: Murmur Respiratory: Yes: Cough Gastrointestinal: Yes: WNL Genitourinary: Yes: WNL Musculoskeletal: Yes: Muscle Weakness Extremities: Yes: WNL Edema: Yes Edema: LLE: 1+, RLE: 1+ Peripheral Pulses WNL: Yes Integumentary: Yes: WNL Wound/Incision: Yes: Clean/Dry Neurological: Yes: Pre-Existing Deficit, Unsteady Gait ...Motor Strength: LLE, RLE Psychiatric: Yes: WNL Labs: CBC, BMP 08/30/17 08:15 08/30/17 08:15 INR, PTT INR 1.50 (0.82-1.09) H 08/30/17 08:15 Fibrinogen 411.0 mg/dL (238-498) 08/26/17 10:50 Problem List - Problems (1) Old cerebrovascular accident without late effect Code(s): Z86.73 - PRSNL HX OF TIA (TIA), AND CEREB INFRC W/O RESID DEFICITS (2) Anemia Code(s): D64.9 - ANEMIA, UNSPECIFIED (3) Atrial fibrillation Code(s): I48.91 - UNSPECIFIED ATRIAL FIBRILLATION Qualifiers: Atrial fibrillation type: persistent Qualified Code(s): I48.1 - Persistent atrial fibrillation (4) COPD (chronic obstructive pulmonary disease) Code(s): J44.9 - CHRONIC OBSTRUCTIVE PULMONARY DISEASE, UNSPECIFIED Qualifiers: COPD type: chronic bronchitis (5) COPD exacerbation Code(s): J44.1 - CHRONIC OBSTRUCTIVE PULMONARY DISEASE W (ACUTE) EXACERBATION (6) Demand ischemia Code(s): I24.8 - OTHER FORMS OF ACUTE ISCHEMIC HEART DISEASE (7) Diastolic dysfunction without heart failure Code(s): I51.89 - OTHER ILL-DEFINED HEART DISEASES (8) Duodenal ulcer Code(s): K26.9 - DUODENAL ULCER, UNSP ACUTE OR CHRONIC, W/O HEMOR OR PERF (9) Pyuria Code(s): N39.0 - URINARY TRACT INFECTION, SITE NOT SPECIFIED (10) Acute blood loss anemia Code(s): D62 - ACUTE POSTHEMORRHAGIC ANEMIA (11) Duodenal ulcer Code(s): K26.9 - DUODENAL ULCER, UNSP ACUTE OR CHRONIC, W/O HEMOR OR PERF (12) Elevated INR Code(s): R79.1 - ABNORMAL COAGULATION PROFILE (13) GI bleeding Code(s): K92.2 - GASTROINTESTINAL HEMORRHAGE, UNSPECIFIED Qualifiers: GI bleed type/associated pathology: duodenal ulcer Qualified Code(s): K26.4 - Chronic or unspecified duodenal ulcer with hemorrhage (14) History of heart valve repair Code(s): Z98.890 - OTHER SPECIFIED POSTPROCEDURAL STATES (15) History of melena Code(s): Z87.19 - PERSONAL HISTORY OF OTHER DISEASES OF THE DIGESTIVE SYSTEM (16) History of prosthetic aortic valve Code(s): Z95.2 - PRESENCE OF PROSTHETIC HEART VALVE (17) Lymphoma Code(s): C85.90 - NON-HODGKIN LYMPHOMA, UNSPECIFIED, UNSPECIFIED SITE Qualifiers: Lymphoma type: non-Hodgkin Non-Hodgkin lymphoma type: follicular Follicular lymphoma grade: grade II Lymphoma site: lower extremity Qualified Code(s): C82.15 - Follicular lymphoma grade II, lymph nodes of inguinal region and lower limb Assessment/Plan DOAC'S DECIDED BY CARDIOLOGY THE ALTERNATIVE THERAPY CONSIDERING THE FLUCTUATING INR AND GI BLEED COUGH WITH H/O COPD NEBS/SYMBICORT PULM F/U APPRECIATED OOB TO CHAIR WITH PT OLD CVA USES CANE FOR AMBULATION
--- NOTE | 2017-08-30 20:15 | PN ---
Progress Note, Physician History of Present Illness: No acute events, INR 1.5. Hgb 10 g/dl. - Current Medication List Current Medications: Active Medications Albuterol/Ipratropium (Duoneb -) 1 amp NEB RQID [facility] Last Admin: 08/30/17 16:32 Dose: 1 amp Atorvastatin Calcium (Lipitor -) 40 mg PO HS [facility] Last Admin: 08/29/17 22:07 Dose: 40 mg Levetiracetam (Keppra -) 500 mg PO BID [facility] Last Admin: 08/30/17 10:02 Dose: 500 mg Metoprolol Succinate (Toprol Xl -) 25 mg PO DAILY [facility] Last Admin: 08/30/17 10:02 Dose: 25 mg Non-Formulary Medication (Mirabegron [Myrbetriq]) 25 mg PO DAILY [facility] Pantoprazole Sodium (Protonix Iv) 40 mg IVPUSH BID [facility] Last Admin: 08/30/17 10:02 Dose: 40 mg Sucralfate (Carafate Oral Suspension -) 1 gm PO QID [facility] Last Admin: 08/30/17 17:28 Dose: 1 gm - Objective Vital Signs: Vital Signs Temperature 98.5 F 08/30/17 17:45 Pulse Rate 80 08/30/17 17:45 Respiratory Rate 20 08/30/17 17:45 Blood Pressure 132/76 08/30/17 17:45 O2 Sat by Pulse Oximetry (%) 94 L 08/30/17 10:00 Gastrointestinal: Yes: Normal Bowel Sounds, Soft. No: Tenderness Labs: CBC, BMP 08/30/17 08:15 08/30/17 08:15 INR, PTT INR 1.50 (0.82-1.09) H 08/30/17 08:15 Fibrinogen 411.0 mg/dL (238-498) 08/26/17 10:50 Problem List - Problems (1) Duodenal ulcer Code(s): K26.9 - DUODENAL ULCER, UNSP ACUTE OR CHRONIC, W/O HEMOR OR PERF (2) Acute blood loss anemia Code(s): D62 - ACUTE POSTHEMORRHAGIC ANEMIA (3) Anticoagulation excessive Code(s): [id number] - (4) GI bleeding Code(s): K92.2 - GASTROINTESTINAL HEMORRHAGE, UNSPECIFIED Qualifiers: GI bleed type/associated pathology: duodenal ulcer Qualified Code(s): K26.4 - Chronic or unspecified duodenal ulcer with hemorrhage (5) Lymphoma Code(s): C85.90 - NON-HODGKIN LYMPHOMA, UNSPECIFIED, UNSPECIFIED SITE Qualifiers: Lymphoma type: non-Hodgkin Non-Hodgkin lymphoma type: follicular Follicular lymphoma grade: grade II Lymphoma site: lower extremity Qualified Code(s): C82.15 - Follicular lymphoma grade II, lymph nodes of inguinal region and lower limb Assessment/Plan Continue current care, am labs. EGD in am.
[2017-08-30] MEDS: ATORVASTATIN CA 40 MG TABLET (FP) PO SCH (22:22)
[2017-08-31] MEDS: ALBUTEROL SO4 2.5/IPRATROPIUM 0.5 INH SOL 3 ML VIAL.NEB. NEB SCH (07:22)
[2017-08-31 07:27] LABS: BASO % 0.1 % (0-2.0); EOS % 1.3 % (0-4.5); HEMATOCRIT 32.4 % (35.4-49); HEMOGLOBIN 10.4 GM/dL (11.7-16.9); LYMPH % 4.2 % (8-40); MCH 27.7 pg (25.7-33.7); MCHC 32.1 g/dl (32.0-35.9); MEAN CELL VOLUME 86.4 fl (80-96); MEAN PLT VOLUME 8.8 fl (7.5-11.1); MONO % 6.5 % (3.8-10.2); NEUT % 87.9 % (42.8-82.8); PLATELET COUNT 213 K/MM3 (134-434); RBC 3.75 M/mm3 (4.00-5.60); RDW 17.5 % (11.9-15.9); WHITE BLOOD COUNT 13.5 K/mm3 (4.0-10.0)
[2017-08-31 08:39] LABS: INR 1.19 (0.82-1.09); PROTHROMBIN TIME (PATIENT) 13.4 SEC (9.7-13.0)
[2017-08-31] MEDS: PANTOPRAZOLE SODIUM 40 MG VIAL IVPUSH SCH ×2 (10:30→21:55)
[2017-08-31] MEDS: SUCRALFATE 1 GM/10 ML UNIT DOSE CUPS PO SCH ×4 (10:31→21:55)
[2017-08-31] MEDS: levETIRAcetam 500 MG TABLET (FP) PO SCH ×2 (10:31→21:55)
[2017-08-31] MEDS: metoPROLOL SUCCINATE 25 MG TAB.SR.24H (FP) PO SCH (10:31)
--- NOTE | 2017-08-31 10:39 | PN ---
Progress Note, Physician Chief Complaint: patient came in with GIbleed s/p PRBC AC on hold to go for EGD today h/h stable - Current Medication List Current Medications: Active Medications Albuterol/Ipratropium (Duoneb -) 1 amp NEB RQID [facility] Last Admin: 08/31/17 07:22 Dose: 1 amp Atorvastatin Calcium (Lipitor -) 40 mg PO HS [facility] Last Admin: 08/30/17 22:22 Dose: 40 mg Levetiracetam (Keppra -) 500 mg PO BID [facility] Last Admin: 08/31/17 10:31 Dose: Not Given Metoprolol Succinate (Toprol Xl -) 25 mg PO DAILY [facility] Last Admin: 08/31/17 10:31 Dose: Not Given Non-Formulary Medication (Mirabegron [Myrbetriq]) 25 mg PO DAILY [facility] Pantoprazole Sodium (Protonix Iv) 40 mg IVPUSH BID [facility] Last Admin: 08/31/17 10:30 Dose: 40 mg Sucralfate (Carafate Oral Suspension -) 1 gm PO QID [facility] Last Admin: 08/31/17 10:31 Dose: Not Given - Objective Vital Signs: Vital Signs Temperature 97.9 F 08/31/17 05:00 Pulse Rate 80 08/31/17 05:00 Respiratory Rate 18 08/31/17 05:00 Blood Pressure 133/83 08/31/17 05:00 O2 Sat by Pulse Oximetry (%) 94 L 08/30/17 21:00 Constitutional: Yes: Calm Cardiovascular: Yes: Regular Rate and Rhythm Respiratory: Yes: CTA Bilaterally, Diminished Gastrointestinal: Yes: Normal Bowel Sounds, Soft Edema: Yes Neurological: Yes: Alert, Oriented Labs: CBC, BMP 08/31/17 06:00 08/30/17 08:15 INR, PTT INR 1.19 (0.82-1.09) H 08/31/17 06:00 Fibrinogen 411.0 mg/dL (238-498) 08/26/17 10:50 Problem List - Problems (1) Anemia Assessment/Plan: s/p PRBC to get EGD today Code(s): D64.9 - ANEMIA, UNSPECIFIED (2) Atrial fibrillation Assessment/Plan: AFC on hold egd today cardiology recomends to restart NOAC in about 3-4 weeks on BB Code(s): I48.91 - UNSPECIFIED ATRIAL FIBRILLATION Qualifiers: Atrial fibrillation type: persistent Qualified Code(s): I48.1 - Persistent atrial fibrillation Assessment/Plan NPO awaitng egd today
--- NOTE | 2017-08-31 11:26 | PN ---
Progress Note, Physician History of Present Illness: No further melena, Hgb stable post transfusion, awaiting EGD. - Current Medication List Current Medications: Active Medications Albuterol/Ipratropium (Duoneb -) 1 amp NEB RQID [facility] Last Admin: 08/31/17 07:22 Dose: 1 amp Atorvastatin Calcium (Lipitor -) 40 mg PO HS [facility] Last Admin: 08/30/17 22:22 Dose: 40 mg Levetiracetam (Keppra -) 500 mg PO BID [facility] Last Admin: 08/31/17 10:31 Dose: Not Given Metoprolol Succinate (Toprol Xl -) 25 mg PO DAILY [facility] Last Admin: 08/31/17 10:31 Dose: Not Given Non-Formulary Medication (Mirabegron [Myrbetriq]) 25 mg PO DAILY [facility] Pantoprazole Sodium (Protonix Iv) 40 mg IVPUSH BID [facility] Last Admin: 08/31/17 10:30 Dose: 40 mg Sucralfate (Carafate Oral Suspension -) 1 gm PO QID [facility] Last Admin: 08/31/17 10:31 Dose: Not Given - Objective Vital Signs: Vital Signs Temperature 97.9 F 08/31/17 05:00 Pulse Rate 80 08/31/17 05:00 Respiratory Rate 18 08/31/17 05:00 Blood Pressure 133/83 08/31/17 05:00 O2 Sat by Pulse Oximetry (%) 94 L 08/30/17 21:00 Constitutional: Yes: No Distress, Calm, Thin Neck: Yes: Supple Cardiovascular: Yes: Regular Rate and Rhythm Respiratory: Yes: Regular, CTA Bilaterally Gastrointestinal: Yes: Soft, Hypoactive Bowel Sounds Edema: No Labs: CBC, BMP 08/31/17 06:00 08/30/17 08:15 INR, PTT INR 1.19 (0.82-1.09) H 08/31/17 06:00 Fibrinogen 411.0 mg/dL (238-498) 08/26/17 10:50 Problem List - Problems (1) Atrial fibrillation Code(s): I48.91 - UNSPECIFIED ATRIAL FIBRILLATION Qualifiers: Atrial fibrillation type: persistent Qualified Code(s): I48.1 - Persistent atrial fibrillation (2) COPD (chronic obstructive pulmonary disease) Code(s): J44.9 - CHRONIC OBSTRUCTIVE PULMONARY DISEASE, UNSPECIFIED Qualifiers: COPD type: chronic bronchitis (3) Duodenal ulcer Code(s): K26.9 - DUODENAL ULCER, UNSP ACUTE OR CHRONIC, W/O HEMOR OR PERF (4) Acute blood loss anemia Code(s): D62 - ACUTE POSTHEMORRHAGIC ANEMIA (5) Anticoagulation excessive Code(s): [id number] - (6) Elevated INR Code(s): R79.1 - ABNORMAL COAGULATION PROFILE (7) GI bleeding Code(s): K92.2 - GASTROINTESTINAL HEMORRHAGE, UNSPECIFIED Qualifiers: GI bleed type/associated pathology: duodenal ulcer Qualified Code(s): K26.4 - Chronic or unspecified duodenal ulcer with hemorrhage (8) HTN (hypertension) Code(s): I10 - ESSENTIAL (PRIMARY) HYPERTENSION Qualifiers: Hypertension type: essential hypertension Qualified Code(s): I10 - Essential (primary) hypertension (9) History of melena Code(s): Z87.19 - PERSONAL HISTORY OF OTHER DISEASES OF THE DIGESTIVE SYSTEM (10) History of prosthetic aortic valve Code(s): Z95.2 - PRESENCE OF PROSTHETIC HEART VALVE (11) Lymphoma Code(s): C85.90 - NON-HODGKIN LYMPHOMA, UNSPECIFIED, UNSPECIFIED SITE Qualifiers: Lymphoma type: non-Hodgkin Non-Hodgkin lymphoma type: follicular Follicular lymphoma grade: grade II Lymphoma site: lower extremity Qualified Code(s): C82.15 - Follicular lymphoma grade II, lymph nodes of inguinal region and lower limb (12) Old cerebrovascular accident (CVA) without late effect Code(s): Z86.73 - PRSNL HX OF TIA (TIA), AND CEREB INFRC W/O RESID DEFICITS (13) Pacemaker Code(s): Z95.0 - PRESENCE OF CARDIAC PACEMAKER (14) Diastolic dysfunction without heart failure Code(s): I51.89 - OTHER ILL-DEFINED HEART DISEASES (15) Demand ischemia Code(s): I24.8 - OTHER FORMS OF ACUTE ISCHEMIC HEART DISEASE (16) Thoracic aortic aneurysm Code(s): I71.2 - THORACIC AORTIC ANEURYSM, WITHOUT RUPTURE Qualifiers: Presence of rupture: without rupture Qualified Code(s): I71.2 - Thoracic aortic aneurysm, without rupture Assessment/Plan 07/2016 Echo: Normal LV and RV size and fxn, severe LAE, mild EKTA, mild AR, MR, TR, normal prosthetic gradients, PPM wire in RV 1. Upper gastrointestinal bleed in context of supratherapeutic INR, duodenul ulcer, anemia post transfusion now with stable H/H 2. CAD angina pectoris, evidence of demand ischemic injury related to above 3. Left ventricular diastolic dysfunction with chronic class 0-I [place] [employer] classification left ventricular failure, compensated/euvolemic. 4. Post re-operative AVR (bio-prosthesis) 5. Ascending thoracic aortic aneurysm post-surgical repair 6. AV block post permanent pacemaker implantation [employer] device 7. Persistent atrial fibrillation [id number] score of 5 on A/C therapy with supratherapeutic INR 8. History of cerebrovascular disease 9. HTN 10. Hypercholesterolemia 11. Follicular lymphoma receiving chemotherapy 12. Demand ischemia 13. COPD PLAN: 1. Monitor CBC and transfuse to maintain Hg equal or > 8.0, trops have peaked 2. Patient has had 3 presentations for recurrent melena in context of supratherapeutic INR, would change to NOAC after 1 month healing and hemostasis achieved since INR control has been suboptimal. Watchman device/AGUEDA closure ( outpatient) implantation would be the final option, continue protonix and sucralfate with d/c concomitant ASA 81 qd 3. Continue Toprol XL 25 qd 4. Continue Lipitor 40 qhs 5. Will discuss plan of care with primary mower operator Dr. Alexis Wallace of [facility] 6. BD and GI protection 7. F/u EGD results
--- NOTE | 2017-08-31 12:18 | PN ---
Progress Note, Physician History of Present Illness: pulmonary alert,no distress,dyspnea improved. pt for egd today - Current Medication List Current Medications: Active Medications Atorvastatin Calcium (Lipitor -) 40 mg PO HS REPLACED BY [facility] Last Admin: 08/30/17 22:22 Dose: 40 mg Levetiracetam (Keppra -) 500 mg PO BID REPLACED BY [facility] Last Admin: 08/31/17 10:31 Dose: Not Given Metoprolol Succinate (Toprol Xl -) 25 mg PO DAILY REPLACED BY [facility] Last Admin: 08/31/17 10:31 Dose: Not Given Non-Formulary Medication (Mirabegron [Myrbetriq]) 25 mg PO DAILY REPLACED BY [facility] Pantoprazole Sodium (Protonix Iv) 40 mg IVPUSH BID REPLACED BY [facility] Last Admin: 08/31/17 10:30 Dose: 40 mg Sucralfate (Carafate Oral Suspension -) 1 gm PO QID REPLACED BY [facility] Last Admin: 08/31/17 10:31 Dose: Not Given - Objective Vital Signs: Vital Signs Temperature 97.9 F 08/31/17 05:00 Pulse Rate 80 08/31/17 05:00 Respiratory Rate 18 08/31/17 05:00 Blood Pressure 133/83 08/31/17 05:00 O2 Sat by Pulse Oximetry (%) 94 L 08/30/17 21:00 Constitutional: Yes: Well Nourished, Calm Eyes: Yes: WNL HENT: Yes: WNL Neck: Yes: WNL Cardiovascular: Yes: Pulse Irregular, S1, S2 Respiratory: Yes: Diminished Gastrointestinal: Yes: Normal Bowel Sounds, Soft Extremities: Yes: WNL Edema: No Labs: CBC, BMP 08/31/17 06:00 08/30/17 08:15 INR, PTT INR 1.19 (0.82-1.09) H 08/31/17 06:00 Fibrinogen 411.0 mg/dL (238-498) 08/26/17 10:50 Problem List - Problems (1) COPD exacerbation Code(s): J44.1 - CHRONIC OBSTRUCTIVE PULMONARY DISEASE W (ACUTE) EXACERBATION (2) Anemia Code(s): D64.9 - ANEMIA, UNSPECIFIED (3) Atrial fibrillation Code(s): I48.91 - UNSPECIFIED ATRIAL FIBRILLATION Qualifiers: Atrial fibrillation type: persistent Qualified Code(s): I48.1 - Persistent atrial fibrillation (4) COPD (chronic obstructive pulmonary disease) Code(s): J44.9 - CHRONIC OBSTRUCTIVE PULMONARY DISEASE, UNSPECIFIED Qualifiers: COPD type: chronic bronchitis (5) Demand ischemia Code(s): I24.8 - OTHER FORMS OF ACUTE ISCHEMIC HEART DISEASE (6) Troponin level elevated Code(s): R74.8 - ABNORMAL LEVELS OF OTHER SERUM ENZYMES (7) Acute blood loss anemia Code(s): D62 - ACUTE POSTHEMORRHAGIC ANEMIA (8) Elevated INR Code(s): R79.1 - ABNORMAL COAGULATION PROFILE (9) GI bleeding Code(s): K92.2 - GASTROINTESTINAL HEMORRHAGE, UNSPECIFIED Qualifiers: GI bleed type/associated pathology: duodenal ulcer Qualified Code(s): K26.4 - Chronic or unspecified duodenal ulcer with hemorrhage (10) HTN (hypertension) Code(s): I10 - ESSENTIAL (PRIMARY) HYPERTENSION Qualifiers: Hypertension type: essential hypertension Qualified Code(s): I10 - Essential (primary) hypertension (11) History of prosthetic aortic valve Code(s): Z95.2 - PRESENCE OF PROSTHETIC HEART VALVE (12) Lymphoma Code(s): C85.90 - NON-HODGKIN LYMPHOMA, UNSPECIFIED, UNSPECIFIED SITE Qualifiers: Lymphoma type: non-Hodgkin Non-Hodgkin lymphoma type: follicular Follicular lymphoma grade: grade II Lymphoma site: lower extremity Qualified Code(s): C82.15 - Follicular lymphoma grade II, lymph nodes of inguinal region and lower limb (13) Old cerebrovascular accident (CVA) without late effect Code(s): Z86.73 - PRSNL HX OF TIA (TIA), AND CEREB INFRC W/O RESID DEFICITS Assessment/Plan IMP COPD EXACERBATION improving GI BLEED SYMPTOMATIC ANEMIA SUPRA-THERAPEUTIC INR S/P AVR AFIB CHF S/P PPM ASHD + TROPONINS LIKELY DEMAND ISCHEMIA FOLLICULAR LYMPHOMA H/O ASBESTOS EXPOSURE PLAN INHALED BRONCHODILATORS SUPPLEMENTAL O2 MONITOR INR MONITOR CBC,H+H F/U CHEST X-RAY PROTONIX EGD TODAY DR ACOSTA Problem List - Problems (1) COPD exacerbation Code(s): J44.1 - CHRONIC OBSTRUCTIVE PULMONARY DISEASE W (ACUTE) EXACERBATION (2) Anemia Code(s): D64.9 - ANEMIA, UNSPECIFIED (3) Atrial fibrillation Code(s): I48.91 - UNSPECIFIED ATRIAL FIBRILLATION Qualifiers: Atrial fibrillation type: persistent Qualified Code(s): I48.1 - Persistent atrial fibrillation (4) COPD (chronic obstructive pulmonary disease) Code(s): J44.9 - CHRONIC OBSTRUCTIVE PULMONARY DISEASE, UNSPECIFIED Qualifiers: COPD type: chronic bronchitis (5) Demand ischemia Code(s): I24.8 - OTHER FORMS OF ACUTE ISCHEMIC HEART DISEASE (6) Troponin level elevated Code(s): R74.8 - ABNORMAL LEVELS OF OTHER SERUM ENZYMES (7) Acute blood loss anemia Code(s): D62 - ACUTE POSTHEMORRHAGIC ANEMIA (8) Elevated INR Code(s): R79.1 - ABNORMAL COAGULATION PROFILE (9) GI bleeding Code(s): K92.2 - GASTROINTESTINAL HEMORRHAGE, UNSPECIFIED Qualifiers: GI bleed type/associated pathology: duodenal ulcer Qualified Code(s): K26.4 - Chronic or unspecified duodenal ulcer with hemorrhage (10) HTN (hypertension) Code(s): I10 - ESSENTIAL (PRIMARY) HYPERTENSION Qualifiers: Hypertension type: essential hypertension Qualified Code(s): I10 - Essential (primary) hypertension (11) History of prosthetic aortic valve Code(s): Z95.2 - PRESENCE OF PROSTHETIC HEART VALVE (12) Lymphoma Code(s): C85.90 - NON-HODGKIN LYMPHOMA, UNSPECIFIED, UNSPECIFIED SITE Qualifiers: Lymphoma type: non-Hodgkin Non-Hodgkin lymphoma type: follicular Follicular lymphoma grade: grade II Lymphoma site: lower extremity Qualified Code(s): C82.15 - Follicular lymphoma grade II, lymph nodes of inguinal region and lower limb (13) Old cerebrovascular accident (CVA) without late effect Code(s): Z86.73 - PRSNL HX OF TIA (TIA), AND CEREB INFRC W/O RESID DEFICITS
[2017-08-31] MEDS ORDERED: PROPOFOL 20 ML ONE ×2 (12:49)
[2017-08-31] MEDS ORDERED: LIDOCAINE HCL 2% (20ML MULTI-DOSE VIAL) NR ONE (12:49)
--- NOTE | 2017-08-31 13:20 | PROC ---
Endoscopy Procedure Endoscopy procedure completed. Please see scanned procedure report. Multiple, confluent, large, deep, friable ulcers in the 2nd portion of the duodenum. Again, they are not amendable to definite endoscopic intervention. Biopsies taken. R/o neoplastic process. Recommend Evaluation by surgery at a tertiary center. Resume previous diet. Avoid Anticoagulation.
[2017-08-31] MEDS ORDERED: ALBUTEROL SO4 2.5/IPRATROPIUM 0.5 INH SOL 3 ML VIAL.NEB. NEB PRN (20:21)
[2017-08-31] MEDS: ATORVASTATIN CA 40 MG TABLET (FP) PO SCH (21:55)
--- NOTE | 2017-09-01 07:43 | PN ---
Progress Note (short form) - Note Progress Note: Chief Complaint: Events noted, noted reviewed. Denies any chest pain or dyspnea , reports dark tarry stool, denies any nausea or vomiting, results of endoscopy noted History of Present Illness: Seen and examined on telemetry. Events noted, noted reviewed. Denies any chest pain or dyspnea, reports dark tarry stool, denies any nausea or vomiting, results of endoscopy noted As outlined in prior notes patient requires A/C indefinitely considering his [id number] score of 5, only other alternative if LA appendage is in situ consideration for Watchman device/AGUEDA closure (outpatient) implantation A/C therapy to be withheld for at least 3-4 weeks and when resumed recommend initiation of DOAC's related to INR instability - Current Medication List Current Medications Albuterol/Ipratropium (Duoneb -) 1 amp NEB Q4H PRN PRN Reason: SHORTNESS OF BREATH Last Admin: 08/31/17 21:40 Dose: 1 amp Atorvastatin Calcium (Lipitor -) 40 mg PO HS [facility] Last Admin: 08/31/17 21:55 Dose: 40 mg Levetiracetam (Keppra -) 500 mg PO BID [facility] Last Admin: 09/01/17 10:03 Dose: 500 mg Metoprolol Succinate (Toprol Xl -) 25 mg PO DAILY [facility] Last Admin: 09/01/17 10:03 Dose: 25 mg Non-Formulary Medication (Mirabegron [Myrbetriq]) 25 mg PO DAILY [facility] Pantoprazole Sodium (Protonix Iv) 40 mg IVPUSH BID [facility] Last Admin: 09/01/17 10:03 Dose: 40 mg Sucralfate (Carafate Oral Suspension -) 1 gm PO QID [facility] Last Admin: 09/01/17 10:03 Dose: 1 gm - Review of Systems Constitutional: denies: Chills, Fever Cardiovascular: As noted above Respiratory: reports: Cough denies: Sputum Production Gastrointestinal: denies: Nausea, Vomiting, Diarrhea, Constipation or Abdominal Pain Genitourinary: denies: Dysuria Neurological: denies: Dizziness or Headaches Endocrine: denies: Intolerance to Cold, Intolerance to Heat - Objective Vital Signs: Last Vital Signs Temp Pulse Resp BP Pulse Ox 98.5 F 80 18 137/80 96 09/01/17 07:04 09/01/17 07:04 06/19/18 07:04 09/01/17 07:04 08/31/17 21:00 Intake & Output 08/29/17 08/30/17 08/31/17 09/01/17 23:59 23:59 23:59 23:59 Intake Total 130 290 200 Output Total 0 Balance 130 290 200 Constitutional: No Distress, Calm, Thin Neck: Supple Negative JVD Respiratory: Diminished Breath Sounds at the Bases Cardiovascular: S1 S2 Regular Rate and Rhythm Grade 2/6 systolic ejection murmur Gastrointestinal: Soft Benign Normal Bowel Sounds Ext: No Edema Labs: CBC, BMP 08/31/17 06:00 08/30/17 08:15 Assessment/Plan ASSESSMENT: 1. Upper gastro-intestinal bleed, related to duodenal/peptic ulcer disease, anemia post transfusion, stable H/H 2. CAD angina pectoris, evidence of demand ischemic injury related to above 3. Systolic left ventricular dysfunction with chronic class 0-I [place] [employer] classification left ventricular failure, compensated/euvolemic. 4. Post re-operative AVR (bio-prosthesis) 5. Ascending thoracic aortic aneurysm post-surgical repair 6. AV block post permanent pacemaker implantation [employer] device 7. Paroxysmal atrial fibrillation [id number] score of 5 off of A/C therapy, resumption of therapy as outlined above 8. History of cerebro-vascular disease 9. HTN 10. Hypercholesterolemia 11. Follicular lymphoma receiving chemotherapy PLAN: 1. as outlined monitor CBC and transfuse to maintain Hg equal or > 8.0 2. Continue Toprol XL, hemodynamics permitting 3. Continue Lipitor therapy 4. As outlined above in reference to A/C alternatives, recommend initiation of DOAC's in 3-4 weeks 5. Patient was advised to F/U with his teller Dr. Scarlet Beck at [facility]/ [place] Above was reviewed in detail with the patient Stephanie Miranda M.D.
[2017-09-01] MEDS: metoPROLOL SUCCINATE 25 MG TAB.SR.24H (FP) PO SCH (10:03)
[2017-09-01] MEDS: PANTOPRAZOLE SODIUM 40 MG VIAL IVPUSH SCH ×2 (10:03→22:12)
[2017-09-01] MEDS: SUCRALFATE 1 GM/10 ML UNIT DOSE CUPS PO SCH ×4 (10:03→22:12)
[2017-09-01] MEDS: levETIRAcetam 500 MG TABLET (FP) PO SCH ×2 (10:03→22:12)
--- NOTE | 2017-09-01 12:04 | PN ---
Progress Note (short form) - Note Progress Note: PULMONARY Still some shortness of breath but better per family at bedside. Vital Signs Period Temp Pulse Resp BP Sys/Lugo Pulse Ox Last 24 Hr 98.2 F-99.2 F 80-80 18-20 104-137/61-80 96-100 Gen: NAD in chair Heart: RRR Lung: distant breath sounds Abd: soft, nontender Ext: no edema CBC, BMP 08/31/17 06:00 08/30/17 08:15 Active Medications Albuterol/Ipratropium (Duoneb -) 1 amp NEB Q4H PRN PRN Reason: SHORTNESS OF BREATH Last Admin: 08/31/17 21:40 Dose: 1 amp Atorvastatin Calcium (Lipitor -) 40 mg PO HS [facility] Last Admin: 08/31/17 21:55 Dose: 40 mg Levetiracetam (Keppra -) 500 mg PO BID [facility] Last Admin: 09/01/17 10:03 Dose: 500 mg Metoprolol Succinate (Toprol Xl -) 25 mg PO DAILY [facility] Last Admin: 09/01/17 10:03 Dose: 25 mg Non-Formulary Medication (Mirabegron [Myrbetriq]) 25 mg PO DAILY [facility] Pantoprazole Sodium (Protonix Iv) 40 mg IVPUSH BID [facility] Last Admin: 09/01/17 10:03 Dose: 40 mg Sucralfate (Carafate Oral Suspension -) 1 gm PO QID [facility] Last Admin: 09/01/17 10:03 Dose: 1 gm A/P Upper GI Bleed Duodenal Ulcers Anemia LV Systolic Dysfunction h/o AVR Paroxysmal Atrial Fibrillation AV Block s/p PPM HTN Follicular Lymphoma COPD - monitor H/H - transfuse as needed - inhaled bronchodilators - O2 as needed - rate controlled - resume anticoagulation when ok with GI - DVT prophylaxis
--- NOTE | 2017-09-01 14:50 | PN ---
Progress Note, Physician Chief Complaint: AWAKE ALERT AWAITING BIOPSY RESULT OF GI ULCER ON EGD YESTERDAY - Current Medication List Current Medications: Active Medications Albuterol/Ipratropium (Duoneb -) 1 amp NEB Q4H PRN PRN Reason: SHORTNESS OF BREATH Last Admin: 08/31/17 21:40 Dose: 1 amp Atorvastatin Calcium (Lipitor -) 40 mg PO HS [facility] Last Admin: 08/31/17 21:55 Dose: 40 mg Levetiracetam (Keppra -) 500 mg PO BID [facility] Last Admin: 09/01/17 10:03 Dose: 500 mg Metoprolol Succinate (Toprol Xl -) 25 mg PO DAILY [facility] Last Admin: 09/01/17 10:03 Dose: 25 mg Non-Formulary Medication (Mirabegron [Myrbetriq]) 25 mg PO DAILY [facility] Pantoprazole Sodium (Protonix Iv) 40 mg IVPUSH BID [facility] Last Admin: 09/01/17 10:03 Dose: 40 mg Sucralfate (Carafate Oral Suspension -) 1 gm PO QID [facility] Last Admin: 09/01/17 10:03 Dose: 1 gm - Objective Vital Signs: Vital Signs Temperature 98.5 F 09/01/17 11:00 Pulse Rate 81 09/01/17 11:00 Respiratory Rate 18 09/01/17 11:00 Blood Pressure 114/67 09/01/17 11:00 O2 Sat by Pulse Oximetry (%) 97 09/01/17 11:00 Constitutional: Yes: Mild Distress Eyes: Yes: WNL HENT: Yes: WNL Neck: Yes: WNL Cardiovascular: Yes: Other Respiratory: Yes: Wheezes Gastrointestinal: Yes: WNL Genitourinary: Yes: WNL Musculoskeletal: Yes: Muscle Weakness Extremities: Yes: WNL Edema: No Peripheral Pulses WNL: Yes Integumentary: Yes: WNL Wound/Incision: Yes: Clean/Dry Neurological: Yes: Pre-Existing Deficit, Unsteady Gait ...Motor Strength: LLE, RLE Psychiatric: Yes: WNL Labs: CBC, BMP 08/31/17 06:00 08/30/17 08:15 INR, PTT INR 1.19 (0.82-1.09) H 08/31/17 06:00 Fibrinogen 411.0 mg/dL (238-498) 08/26/17 10:50 Problem List - Problems (1) Old cerebrovascular accident without late effect Code(s): Z86.73 - PRSNL HX OF TIA (TIA), AND CEREB INFRC W/O RESID DEFICITS (2) Anemia Code(s): D64.9 - ANEMIA, UNSPECIFIED (3) Atrial fibrillation Code(s): I48.91 - UNSPECIFIED ATRIAL FIBRILLATION Qualifiers: Atrial fibrillation type: persistent Qualified Code(s): I48.1 - Persistent atrial fibrillation (4) COPD (chronic obstructive pulmonary disease) Code(s): J44.9 - CHRONIC OBSTRUCTIVE PULMONARY DISEASE, UNSPECIFIED Qualifiers: COPD type: chronic bronchitis (5) COPD exacerbation Code(s): J44.1 - CHRONIC OBSTRUCTIVE PULMONARY DISEASE W (ACUTE) EXACERBATION (6) Demand ischemia Code(s): I24.8 - OTHER FORMS OF ACUTE ISCHEMIC HEART DISEASE (7) Diastolic dysfunction without heart failure Code(s): I51.89 - OTHER ILL-DEFINED HEART DISEASES (8) Duodenal ulcer Code(s): K26.9 - DUODENAL ULCER, UNSP ACUTE OR CHRONIC, W/O HEMOR OR PERF (9) Pyuria Code(s): N39.0 - URINARY TRACT INFECTION, SITE NOT SPECIFIED (10) Acute blood loss anemia Code(s): D62 - ACUTE POSTHEMORRHAGIC ANEMIA (11) Duodenal ulcer Code(s): K26.9 - DUODENAL ULCER, UNSP ACUTE OR CHRONIC, W/O HEMOR OR PERF (12) Elevated INR Code(s): R79.1 - ABNORMAL COAGULATION PROFILE (13) GI bleeding Code(s): K92.2 - GASTROINTESTINAL HEMORRHAGE, UNSPECIFIED Qualifiers: GI bleed type/associated pathology: duodenal ulcer Qualified Code(s): K26.4 - Chronic or unspecified duodenal ulcer with hemorrhage (14) History of heart valve repair Code(s): Z98.890 - OTHER SPECIFIED POSTPROCEDURAL STATES (15) History of melena Code(s): Z87.19 - PERSONAL HISTORY OF OTHER DISEASES OF THE DIGESTIVE SYSTEM (16) History of prosthetic aortic valve Code(s): Z95.2 - PRESENCE OF PROSTHETIC HEART VALVE (17) Lymphoma Code(s): C85.90 - NON-HODGKIN LYMPHOMA, UNSPECIFIED, UNSPECIFIED SITE Qualifiers: Lymphoma type: non-Hodgkin Non-Hodgkin lymphoma type: follicular Follicular lymphoma grade: grade II Lymphoma site: lower extremity Qualified Code(s): C82.15 - Follicular lymphoma grade II, lymph nodes of inguinal region and lower limb Assessment/Plan OFF ALL ANTICOAGULATION AT THIS TIME AWAIT BIOPSY RESULT GI ULCER H/O LYMPHOMA RESP NEBS FOR COPD OOB TO CHAIR CARDIOLOGY F/U APPRECIATED
[2017-09-01 16:20] LABS: HEMATOCRIT 30.4 % (35.4-49); HEMOGLOBIN 9.8 GM/dL (11.7-16.9); MCH 27.5 pg (25.7-33.7); MCHC 32.1 g/dl (32.0-35.9); MEAN CELL VOLUME 85.6 fl (80-96); MEAN PLT VOLUME 8.9 fl (7.5-11.1); PLATELET COUNT 218 K/MM3 (134-434); RBC 3.56 M/mm3 (4.00-5.60); RDW 18.1 % (11.9-15.9); WHITE BLOOD COUNT 10.8 K/mm3 (4.0-10.0)
--- NOTE | 2017-09-01 17:21 | PN ---
Progress Note (short form) - Note Progress Note: Pt seen and examined at bedside. pt continues to express anguish about him staying in the hospital O/E: General: In chair, OOB , in no distress HEENT; NCAT COr: RRR Lungs: clear Extremities: no CCE Last Vital Signs Temp Pulse Resp BP Pulse Ox 98.5 F 78 18 143/78 97 08/29/17 10:00 08/29/17 10:00 08/29/17 10:00 08/29/17 10:00 08/29/17 10:00 CBC, BMP 08/29/17 07:35 08/29/17 07:35 Current Medications Generic Name Dose Route Start Last Admin Trade Name Freq PRN Reason Stop Dose Admin Albuterol/Ipratropium 1 amp 08/26/17 12:00 08/29/17 12:36 Duoneb - NEB 1 amp RQID [facility] Administration Atorvastatin Calcium 40 mg 08/26/17 22:00 08/28/17 21:00 Lipitor - PO 40 mg HS [facility] Administration Levetiracetam 500 mg 08/26/17 10:00 08/29/17 10:29 Keppra - PO 500 mg BID [facility] Administration Metoprolol Succinate 25 mg 08/28/17 10:00 08/29/17 10:29 Toprol Xl - PO 25 mg DAILY [facility] Administration Non-Formulary Medication 25 mg 08/26/17 10:00 Mirabegron [Myrbetriq] PO DAILY [facility] Pantoprazole Sodium 40 mg 08/26/17 10:00 08/29/17 10:30 Protonix Iv IVPUSH 40 mg BID [facility] Administration Sucralfate 1 gm 08/28/17 18:00 08/29/17 10:30 Carafate Oral Suspension - PO 1 gm QID [facility] Administration Recurrent GIB/FL/COPD/CAD/CVA/Prosthetic aortic valve on AC Recurrent GIB: EGD /GI note reviewed--multiple ulcers, need to f.u for biopsy results CBC:pending work-up/Rx/initiation of AC : Plan per other consultants/appreciate all recs. Follicular Lymphoma: resumption of chemotherapy and PET-CT for treatment response would be done as an OP once acute issues resolved.
[2017-09-01] MEDS: ATORVASTATIN CA 40 MG TABLET (FP) PO SCH (22:12)
[2017-09-02] MEDS ORDERED: IRON SUCROSE INJECTION 200 MG in SODIUM CHLORIDE 240 ML IVPB ONE (00:45)
[2017-09-02 06:37] LABS: HEMATOCRIT 31.2 % (35.4-49); HEMOGLOBIN 10.2 GM/dL (11.7-16.9); MCH 27.9 pg (25.7-33.7); MCHC 32.7 g/dl (32.0-35.9); MEAN CELL VOLUME 85.4 fl (80-96); MEAN PLT VOLUME 8.8 fl (7.5-11.1); PLATELET COUNT 191 K/MM3 (134-434); RBC 3.65 M/mm3 (4.00-5.60); RDW 17.3 % (11.9-15.9); WHITE BLOOD COUNT 10.7 K/mm3 (4.0-10.0)
[2017-09-02] MEDS ORDERED: PT OWN MED DRAWER 7, Y5N ONE (09:53)
--- NOTE | 2017-09-02 09:56 | PN ---
Progress Note, Physician History of Present Illness: No further melena, Hgb stable post transfusion, EGD shows multiple duodenal ulcers not amenable to endoscopic intervention. Patient planned for transfer to Heme-onc service at [facility]. - Current Medication List Current Medications: Active Medications Albuterol/Ipratropium (Duoneb -) 1 amp NEB Q4H PRN PRN Reason: SHORTNESS OF BREATH Last Admin: 08/31/17 21:40 Dose: 1 amp Atorvastatin Calcium (Lipitor -) 40 mg PO HS [facility] Last Admin: 09/01/17 22:12 Dose: 40 mg Levetiracetam (Keppra -) 500 mg PO BID [facility] Last Admin: 09/01/17 22:12 Dose: 500 mg Metoprolol Succinate (Toprol Xl -) 25 mg PO DAILY [facility] Last Admin: 09/01/17 10:03 Dose: 25 mg Non-Formulary Medication (Mirabegron [Myrbetriq]) 25 mg PO DAILY [facility] Pantoprazole Sodium (Protonix Iv) 40 mg IVPUSH BID [facility] Last Admin: 09/01/17 22:12 Dose: 40 mg Sucralfate (Carafate Oral Suspension -) 1 gm PO QID [facility] Last Admin: 09/01/17 22:12 Dose: 1 gm - Objective Vital Signs: Vital Signs Temperature 97.9 F 09/02/17 06:00 Pulse Rate 80 09/02/17 06:00 Respiratory Rate 18 09/02/17 06:00 Blood Pressure 136/79 09/02/17 06:00 O2 Sat by Pulse Oximetry (%) 96 09/01/17 21:00 Constitutional: Yes: No Distress, Calm Neck: Yes: Supple Cardiovascular: Yes: Regular Rate and Rhythm, Murmur (2/6 SM) Respiratory: Yes: Regular, Diminished Gastrointestinal: Yes: Normal Bowel Sounds, Soft Edema: No Labs: CBC, BMP 09/02/17 06:00 08/30/17 08:15 INR, PTT INR 1.19 (0.82-1.09) H 08/31/17 06:00 Fibrinogen 411.0 mg/dL (238-498) 08/26/17 10:50 Problem List - Problems (1) Atrial fibrillation Code(s): I48.91 - UNSPECIFIED ATRIAL FIBRILLATION Qualifiers: Atrial fibrillation type: persistent Qualified Code(s): I48.1 - Persistent atrial fibrillation (2) COPD (chronic obstructive pulmonary disease) Code(s): J44.9 - CHRONIC OBSTRUCTIVE PULMONARY DISEASE, UNSPECIFIED Qualifiers: COPD type: chronic bronchitis (3) Duodenal ulcer Code(s): K26.9 - DUODENAL ULCER, UNSP ACUTE OR CHRONIC, W/O HEMOR OR PERF (4) Acute blood loss anemia Code(s): D62 - ACUTE POSTHEMORRHAGIC ANEMIA (5) Anticoagulation excessive Code(s): [id number] - (6) Elevated INR Code(s): R79.1 - ABNORMAL COAGULATION PROFILE (7) GI bleeding Code(s): K92.2 - GASTROINTESTINAL HEMORRHAGE, UNSPECIFIED Qualifiers: GI bleed type/associated pathology: duodenal ulcer Qualified Code(s): K26.4 - Chronic or unspecified duodenal ulcer with hemorrhage (8) HTN (hypertension) Code(s): I10 - ESSENTIAL (PRIMARY) HYPERTENSION Qualifiers: Hypertension type: essential hypertension Qualified Code(s): I10 - Essential (primary) hypertension (9) History of melena Code(s): Z87.19 - PERSONAL HISTORY OF OTHER DISEASES OF THE DIGESTIVE SYSTEM (10) History of prosthetic aortic valve Code(s): Z95.2 - PRESENCE OF PROSTHETIC HEART VALVE (11) Lymphoma Code(s): C85.90 - NON-HODGKIN LYMPHOMA, UNSPECIFIED, UNSPECIFIED SITE Qualifiers: Lymphoma type: non-Hodgkin Non-Hodgkin lymphoma type: follicular Follicular lymphoma grade: grade II Lymphoma site: lower extremity Qualified Code(s): C82.15 - Follicular lymphoma grade II, lymph nodes of inguinal region and lower limb (12) Old cerebrovascular accident (CVA) without late effect Code(s): Z86.73 - PRSNL HX OF TIA (TIA), AND CEREB INFRC W/O RESID DEFICITS (13) Pacemaker Code(s): Z95.0 - PRESENCE OF CARDIAC PACEMAKER (14) Diastolic dysfunction without heart failure Code(s): I51.89 - OTHER ILL-DEFINED HEART DISEASES (15) Demand ischemia Code(s): I24.8 - OTHER FORMS OF ACUTE ISCHEMIC HEART DISEASE (16) Thoracic aortic aneurysm Code(s): I71.2 - THORACIC AORTIC ANEURYSM, WITHOUT RUPTURE Qualifiers: Presence of rupture: without rupture Qualified Code(s): I71.2 - Thoracic aortic aneurysm, without rupture Assessment/Plan 07/2016 Echo: Normal LV and RV size and fxn, severe LAE, mild EKTA, mild AR, MR, TR, normal prosthetic gradients, PPM wire in RV 1. Upper gastrointestinal bleed in context of supratherapeutic INR, related to multiple duodenal ulcers, anemia post transfusion, stable H/H 2. CAD angina pectoris, evidence of demand ischemic injury related to above 3. Systolic left ventricular dysfunction with chronic class 0-I [place] [employer] classification left ventricular failure, compensated/euvolemic. 4. Post re-operative AVR (bio-prosthesis) 5. Ascending thoracic aortic aneurysm post-surgical repair 6. AV block post permanent pacemaker implantation [employer] device 7. Paroxysmal atrial fibrillation [id number] score of 5 off of A/C therapy, resumption of therapy as outlined above 8. History of cerebrovascular disease 9. HTN 10. Hypercholesterolemia 11. Follicular lymphoma receiving chemotherapy 12. COPD PLAN: 1. Monitor CBC and transfuse to maintain Hg equal or > 8.0, trops have peaked 2. Patient has had 3 presentations for recurrent melena in context of supratherapeutic INR, consider change to NOAC after 1 month healing, hemostasis achieved since INR control has been suboptimal, and delineation of duodenal pathology (r/o lymphoma). Watchman device/AGUEDA closure (outpatient) implantation would be the final option, continue protonix and sucralfate 3. Continue Toprol XL 25 qd 4. Continue Lipitor 40 qhs 5. Pt to f/u with primary turkey egg gatherer Dr. Alexis Wallace of [facility] [place] [facility] [place] 6. BD and GI protection, f/u biopsies, transfer to [facility]-Onc service
--- NOTE | 2017-09-02 10:10 | DS ---
Physical Examination Vital Signs: Vital Signs Temperature 97.9 F 09/02/17 06:00 Pulse Rate 80 09/02/17 06:00 Respiratory Rate 18 09/02/17 06:00 Blood Pressure 136/79 09/02/17 06:00 O2 Sat by Pulse Oximetry (%) 96 09/01/17 21:00 Findings/Remarks: SPOKE WITH GI, TRANSFER TO [facility] RECOMMENDED FOR GI MALGNANCY WORKUP Constitutional: Yes: No Distress Eyes: Yes: WNL HENT: Yes: WNL Neck: Yes: WNL Cardiovascular: Yes: Other Respiratory: Yes: WNL Gastrointestinal: Yes: WNL Renal/: Yes: WNL Musculoskeletal: Yes: Muscle Weakness Extremities: Yes: Other Edema: Yes Peripheral Pulses WNL: Yes Integumentary: Yes: Venous Stasis Changes Wound/Incision: Yes: Dressing Dry and Intact Neurological: Yes: Pre-Existing Deficit, Unsteady Gait ...Motor Strength: LLE, RLE Psychiatric: Yes: Other Labs: CBC, BMP 09/02/17 06:00 08/30/17 08:15 Discharge Summary Reason For Visit: ANEMIA,ATRIAL FIBRILATION,DUODENAL ULCER Current Active Problems Anemia (Acute) Atrial fibrillation (Acute) COPD (chronic obstructive pulmonary disease) (Acute) COPD exacerbation (Acute) Demand ischemia (Acute) Diastolic dysfunction without heart failure (Acute) Duodenal ulcer (Acute) Old cerebrovascular accident without late effect (Acute) Pyuria (Acute) Troponin level elevated (Acute) UTI (urinary tract infection) (Acute) Procedures: Principal: EGD Hospital Course: TRANSFUSED PRBC, EGD DONE LARGE ULCERS IN GI TRACT. WILL DISCUSS WITH PATIENT IF HE WOULD LIKE TRANSFER TO [facility] FOR FURTHER WORKUP OR NOT Condition: Guarded - Instructions Diet, Activity, Other Instructions: LOW SODIUM Referrals: Viridiana Monet MD [Primary Care Provider] - Disposition: TRANSFER ACUTE CARE/OTHER HOSP - Home Medications Comprehensive Discharge Medication List: Ambulatory Orders Atorvastatin Ca [Lipitor] 40 mg PO HS 01/12/17 Warfarin Sodium [Coumadin] 7.5 mg PO DAILY 01/12/17 Amlodipine Besylate [Norvasc -] 2.5 mg PO BID tablet 01/21/17 levETIRAcetam [Keppra -] 500 mg PO BID tablet 02/24/17 Ascorbate Calcium [Vitamin C] 500 mg PO DAILY 08/07/17 Aspirin [ASA -] 81 mg PO DAILY 08/07/17 Mirabegron [Myrbetriq] 25 mg PO DAILY 08/07/17 Multivit-Min/FA/Lycopen/Lutein [Centrum Silver Men Tablet] 1 each PO DAILY 08/07 Pantoprazole Sodium 40 mg PO BID 08/07/17 Zinc Sulfate 220 mg PO DAILY 08/07/17
[2017-09-02] MEDS: levETIRAcetam 500 MG TABLET (FP) PO SCH ×2 (10:19→21:10)
[2017-09-02] MEDS: metoPROLOL SUCCINATE 25 MG TAB.SR.24H (FP) PO SCH (10:19)
[2017-09-02] MEDS: PANTOPRAZOLE SODIUM 40 MG VIAL IVPUSH SCH ×2 (10:19→21:10)
[2017-09-02] MEDS: SUCRALFATE 1 GM/10 ML UNIT DOSE CUPS PO SCH ×4 (10:19→21:10)
--- NOTE | 2017-09-02 12:44 | PN ---
Progress Note, Physician History of Present Illness: PULMONARY ALERT,OOB-CHAIR,-SOB, TO BE TRANSFERR[facility]TO [facility] FOR FURTHER GI W/U R/O GI MALIGNANCY - Current Medication List Current Medications: Active Medications Albuterol/Ipratropium (Duoneb -) 1 amp NEB Q4H PRN PRN Reason: SHORTNESS OF BREATH Last Admin: 08/31/17 21:40 Dose: 1 amp Atorvastatin Calcium (Lipitor -) 40 mg PO HS [facility] Last Admin: 09/01/17 22:12 Dose: 40 mg Levetiracetam (Keppra -) 500 mg PO BID [facility] Last Admin: 09/02/17 10:19 Dose: 500 mg Metoprolol Succinate (Toprol Xl -) 25 mg PO DAILY [facility] Last Admin: 09/02/17 10:19 Dose: 25 mg Non-Formulary Medication (Mirabegron [Myrbetriq]) 25 mg PO DAILY [facility] Pantoprazole Sodium (Protonix Iv) 40 mg IVPUSH BID [facility] Last Admin: 09/02/17 10:19 Dose: 40 mg Sucralfate (Carafate Oral Suspension -) 1 gm PO QID [facility] Last Admin: 09/02/17 10:19 Dose: 1 gm - Objective Vital Signs: Vital Signs Temperature 98.5 F 09/02/17 10:00 Pulse Rate 79 09/02/17 10:00 Respiratory Rate 19 09/02/17 10:00 Blood Pressure 122/86 09/02/17 10:00 O2 Sat by Pulse Oximetry (%) 96 09/02/17 09:00 Constitutional: Yes: Well Nourished, Calm Eyes: Yes: WNL HENT: Yes: WNL Neck: Yes: WNL Cardiovascular: Yes: Pulse Irregular, S1, S2 Respiratory: Yes: Diminished Gastrointestinal: Yes: Normal Bowel Sounds, Soft Extremities: Yes: WNL Edema: No Labs: CBC, BMP 09/02/17 06:00 08/30/17 08:15 INR, PTT INR 1.19 (0.82-1.09) H 08/31/17 06:00 Fibrinogen 411.0 mg/dL (238-498) 08/26/17 10:50 Problem List - Problems (1) COPD exacerbation Code(s): J44.1 - CHRONIC OBSTRUCTIVE PULMONARY DISEASE W (ACUTE) EXACERBATION (2) Anemia Code(s): D64.9 - ANEMIA, UNSPECIFIED (3) Atrial fibrillation Code(s): I48.91 - UNSPECIFIED ATRIAL FIBRILLATION Qualifiers: Atrial fibrillation type: persistent Qualified Code(s): I48.1 - Persistent atrial fibrillation (4) COPD (chronic obstructive pulmonary disease) Code(s): J44.9 - CHRONIC OBSTRUCTIVE PULMONARY DISEASE, UNSPECIFIED Qualifiers: COPD type: chronic bronchitis (5) Demand ischemia Code(s): I24.8 - OTHER FORMS OF ACUTE ISCHEMIC HEART DISEASE (6) Troponin level elevated Code(s): R74.8 - ABNORMAL LEVELS OF OTHER SERUM ENZYMES (7) Acute blood loss anemia Code(s): D62 - ACUTE POSTHEMORRHAGIC ANEMIA (8) Elevated INR Code(s): R79.1 - ABNORMAL COAGULATION PROFILE (9) GI bleeding Code(s): K92.2 - GASTROINTESTINAL HEMORRHAGE, UNSPECIFIED Qualifiers: GI bleed type/associated pathology: duodenal ulcer Qualified Code(s): K26.4 - Chronic or unspecified duodenal ulcer with hemorrhage (10) HTN (hypertension) Code(s): I10 - ESSENTIAL (PRIMARY) HYPERTENSION Qualifiers: Hypertension type: essential hypertension Qualified Code(s): I10 - Essential (primary) hypertension (11) History of prosthetic aortic valve Code(s): Z95.2 - PRESENCE OF PROSTHETIC HEART VALVE (12) Lymphoma Code(s): C85.90 - NON-HODGKIN LYMPHOMA, UNSPECIFIED, UNSPECIFIED SITE Qualifiers: Lymphoma type: non-Hodgkin Non-Hodgkin lymphoma type: follicular Follicular lymphoma grade: grade II Lymphoma site: lower extremity Qualified Code(s): C82.15 - Follicular lymphoma grade II, lymph nodes of inguinal region and lower limb (13) Old cerebrovascular accident (CVA) without late effect Code(s): Z86.73 - PRSNL HX OF TIA (TIA), AND CEREB INFRC W/O RESID DEFICITS Assessment/Plan IMP COPD EXACERBATION improved GI BLEED SYMPTOMATIC ANEMIA SUPRA-THERAPEUTIC INR S/P AVR AFIB CHF S/P PPM ASHD + TROPONINS LIKELY DEMAND ISCHEMIA FOLLICULAR LYMPHOMA H/O ASBESTOS EXPOSURE R/O GI MALIGNANCY PLAN TRANFER TO [facility] FOR FURTHER GI W/U INHALED BRONCHODILATORS SUPPLEMENTAL O2 AC WHEN OK WITH GI MONITOR CBC,H+H PROTONIX DR ACOSTA Problem List - Problems (1) COPD exacerbation Code(s): J44.1 - CHRONIC OBSTRUCTIVE PULMONARY DISEASE W (ACUTE) EXACERBATION (2) Anemia Code(s): D64.9 - ANEMIA, UNSPECIFIED (3) Atrial fibrillation Code(s): I48.91 - UNSPECIFIED ATRIAL FIBRILLATION Qualifiers: Atrial fibrillation type: persistent Qualified Code(s): I48.1 - Persistent atrial fibrillation (4) COPD (chronic obstructive pulmonary disease) Code(s): J44.9 - CHRONIC OBSTRUCTIVE PULMONARY DISEASE, UNSPECIFIED Qualifiers: COPD type: chronic bronchitis (5) Demand ischemia Code(s): I24.8 - OTHER FORMS OF ACUTE ISCHEMIC HEART DISEASE (6) Troponin level elevated Code(s): R74.8 - ABNORMAL LEVELS OF OTHER SERUM ENZYMES (7) Acute blood loss anemia Code(s): D62 - ACUTE POSTHEMORRHAGIC ANEMIA (8) Elevated INR Code(s): R79.1 - ABNORMAL COAGULATION PROFILE (9) GI bleeding Code(s): K92.2 - GASTROINTESTINAL HEMORRHAGE, UNSPECIFIED Qualifiers: GI bleed type/associated pathology: duodenal ulcer Qualified Code(s): K26.4 - Chronic or unspecified duodenal ulcer with hemorrhage (10) HTN (hypertension) Code(s): I10 - ESSENTIAL (PRIMARY) HYPERTENSION Qualifiers: Hypertension type: essential hypertension Qualified Code(s): I10 - Essential (primary) hypertension (11) History of prosthetic aortic valve Code(s): Z95.2 - PRESENCE OF PROSTHETIC HEART VALVE (12) Lymphoma Code(s): C85.90 - NON-HODGKIN LYMPHOMA, UNSPECIFIED, UNSPECIFIED SITE Qualifiers: Lymphoma type: non-Hodgkin Non-Hodgkin lymphoma type: follicular Follicular lymphoma grade: grade II Lymphoma site: lower extremity Qualified Code(s): C82.15 - Follicular lymphoma grade II, lymph nodes of inguinal region and lower limb (13) Old cerebrovascular accident (CVA) without late effect Code(s): Z86.73 - PRSNL HX OF TIA (TIA), AND CEREB INFRC W/O RESID DEFICITS
--- NOTE | 2017-09-02 13:12 | PATH ---
Surgical Pathology Report Patient Name: GRETEL PAGAN JR [facility]. Rec. #: [id number] /Age/Gender: 1950 (Age: 67) / M Account: [id number] Location: 4 PEDS/ADOL Taken: 08/31/2017 Received: 09/01/2017 Reported: 09/02/2017 Physicians: Tacho Spears M.D. Specimen(s) Received BX 2ND PORTION DUODENUM ULCER Clinical History Duodenal ulcer Postoperative diagnosis: Same Final Diagnosis SECOND PORTION OF DUODENUM ULCER, BIOPSY: DUODENAL MUCOSA WITH MILD CHRONIC INFLAMMATION AND EDEMATOUS CHANGE IN THE LAMINA PROPRIA. Electronically Signed Raven Hugo M.D. Gross Description Received in formalin, labeled "biopsy second portion of duodenum ulcer" are 3 ying, irregular portions of soft tissue ranging from 0.1-0.3 cm. in greatest dimension. The specimens are submitted in toto in one cassette. 09/01/2017 [facility]09/01/2017
[2017-09-02 14:51] VITALS: PULSE 80
--- NOTE | 2017-09-02 15:25 | PN ---
Progress Note (short form) - Note Progress Note: awaiting transfer to [facility] Dr.Sammy Mckenna- discussed case with him, to evaluate pt once he's transferred to [facility] d/w Service medical oncologists at [facility]. 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 Path of the EGD biopsies reviewed and d/w pathologist here--reported as benign
[2017-09-02] MEDS: ATORVASTATIN CA 40 MG TABLET (FP) PO SCH (21:10)
[2017-09-02 22:24] VITALS: BP 154/86; TEMP 98.8
== END 2017-09-02 21:51 | disposition short-term general hospital (02) | DRG 813 ==
LOC: JER 21:10 → JERBED 08-26 00:19 → J4S 08-26 04:00
PROVIDERS: ADMIT Internal Medicine; ATTEND Family Medicine
PROC: 30233K1 Transfusion of Nonautologous Frozen Plasma into Peripheral Vein, Percutaneous Approach (ICD-10-PCS; principal; 2017-08-26)
PROC: 30233N1 Transfusion of Nonautologous Red Blood Cells into Peripheral Vein, Percutaneous Approach (ICD-10-PCS; 2017-08-26)
PROC: 0DD98ZX Extraction of Duodenum, Via Natural or Artificial Opening Endoscopic, Diagnostic (ICD-10-PCS; 2017-08-31)
DX: D68.32 Hemorrhagic disorder due to extrinsic circulating anticoagulants (principal); K26.4 Chronic or unspecified duodenal ulcer with hemorrhage; C82.15 Follicular lymphoma grade II, lymph nodes of inguinal region and lower limb; I48.1 Persistent atrial fibrillation; J44.1 Chronic obstructive pulmonary disease with (acute) exacerbation; G81.90 Hemiplegia, unspecified affecting unspecified side; I24.8 Other forms of acute ischemic heart disease; D62 Acute posthemorrhagic anemia; N39.0 Urinary tract infection, site not specified; N17.9 Acute kidney failure, unspecified; I25.110 Atherosclerotic heart disease of native coronary artery with unstable angina pectoris; I50.30 Unspecified diastolic (congestive) heart failure; I11.0 Hypertensive heart disease with heart failure; K22.70 Barrett's esophagus without dysplasia; I48.91 Unspecified atrial fibrillation; K44.9 Diaphragmatic hernia without obstruction or gangrene; D72.829 Elevated white blood cell count, unspecified; R79.1 Abnormal coagulation profile; E78.00 Pure hypercholesterolemia, unspecified; K27.9 Peptic ulcer, site unspecified, unspecified as acute or chronic, without hemorrhage or perforation; Z95.0 Presence of cardiac pacemaker; Z87.891 Personal history of nicotine dependence; Z22.322 Carrier or suspected carrier of Methicillin resistant Staphylococcus aureus; Z95.2 Presence of prosthetic heart valve; Z79.01 Long term (current) use of anticoagulants
CPT/HCPCS: 36415; 36430; 71045-TC-FY; 80053; 81003; 81015; 82272; 82550; 83690; 83735; 84100; 84484; 85025; 85027; 85384; 85610; 85730; 86850; 86900; 86901; 86922; 87086; 87186; 88305-TC; 93005; 93010; 94640; 99284-25; J1756; J7620; P9017; P9038; P9058

== ENCOUNTER 2017-09-15 07:39 | Day surgery (SDC) | payer OTHER ==
[2017-09-15] MEDS ORDERED: PEGFILGRASTIM 6 MG/0.6 ML DISP.SYRIN SQ ONE (10:00)
[2017-09-15 16:19] VITALS: BP 165/87; PULSE 80; TEMP 98.6
== END 2017-09-15 15:00 | disposition home or self-care (01) ==
LOC: JONCCHEMO 07:39 → J7W 15:09
PROVIDERS: ATTEND Internal Medicine Hematology & Oncology
PROC: 3E013GC Introduction of Other Therapeutic Substance into Subcutaneous Tissue, Percutaneous Approach (ICD-10-PCS; principal; 2017-09-15)
DX: C82.18 Follicular lymphoma grade II, lymph nodes of multiple sites (principal); I10 Essential (primary) hypertension; I48.91 Unspecified atrial fibrillation; Z86.73 Personal history of transient ischemic attack (TIA), and cerebral infarction without residual deficits; J44.9 Chronic obstructive pulmonary disease, unspecified
CPT/HCPCS: 96372; J2505

== ENCOUNTER 2017-09-28 14:47 | Observation (INO) | payer OTHER ==
--- NOTE | 2017-09-28 15:03 | PDOC ---
Rapid Medical Evaluation Time Seen by Provider: 09/28/17 15:00 Medical Evaluation: Allergies Allergy/AdvReac Type Severity Reaction Status Date / Time No Known Drug Allergies Allergy Verified 09/28/17 14:57 09/28/17 15:01 I have performed a brief in-person evaluation of this patient. The patient presents with a chief complaint of: BRBPR w/ melena today. H/o afib , no longer on blood thinners, eliquis, chronic melena, anemia, CHF, AVR, s/p chemo for lymphoma, bleeding gastric ulcer, s/p admission 09/21 here for GIB, transfused and then transferred to [place] where his bleeding improved after endoscopy, told "I have a tumor in my intestine" w/ biopsy pending. Colonoscopy in past w/ Dr Veras showed polyps per pt. Pt was discharged yesterday. Hgb here 09/24 was 11. Pertinent physical exam findings:Stable I have ordered the following:labs The patient will proceed to the ED for further evaluation. Discharge Disposition - Diagnosis GIB (gastrointestinal bleeding) Qualifiers: GI bleed type/associated pathology: unspecified gastrointestinal hemorrhage type Qualified Code(s): K92.2 - Gastrointestinal hemorrhage, unspecified - Referrals - Patient Instructions - Post Discharge Activity
[2017-09-28 16:47] LABS: INR 1.27 (0.82-1.09); PROTHROMBIN TIME (PATIENT) 14.3 SEC (9.7-13.0)
[2017-09-28 16:58] LABS: BASO % 0.7 % (0-2.0); EOS % 0.3 % (0-4.5); HEMOGLOBIN 9.1 GM/dL (11.7-16.9); LYMPH % 6.8 % (8-40); MCH 28.7 pg (25.7-33.7); MCHC 32.3 g/dl (32.0-35.9); MEAN CELL VOLUME 88.8 fl (80-96); MEAN PLT VOLUME 9.4 fl (7.5-11.1); MONO % 8.6 % (3.8-10.2); NEUT % 83.6 % (42.8-82.8); PLATELET COUNT 218 K/MM3 (134-434); RBC 3.15 M/mm3 (4.00-5.60); RDW 19.1 % (11.9-15.9); WHITE BLOOD COUNT 11.6 K/mm3 (4.0-10.0)
[2017-09-28 17:03] LABS: ALBUMIN 3.3 g/dl (3.4-5.0); ALK PHOS 97 U/L (45-117); ANION GAP 8 (8-16); BILIRUBIN,TOTAL 0.4 mg/dL (0.2-1.0); BLOOD UREA NITROGEN 32 mg/dL (7-18); CALCIUM 8.7 mg/dL (8.5-10.1); CHLORIDE 110 mmol/L (98-107); CO2 28 mmol/L (21-32); CREATININE 1.1 mg/dL (0.7-1.3); GLUCOSE,RANDOM 105 mg/dL (74-106); POTASSIUM 4.4 mmol/L (3.5-5.1); SGOT/AST 8 U/L (15-37); SGPT/ALT 15 U/L (12-78); SODIUM 146 mmol/L (136-145)
--- NOTE | 2017-09-28 17:37 | PDOC ---
History of Present Illness - General Chief Complaint: Rectal Bleed Stated Complaint: BLOOD IN STOOL Time Seen by Provider: 09/28/17 15:00 History Source: Patient Exam Limitations: No Limitations - History of Present Illness Initial Comments: 09/28/17 18:17 67 y/o male presenting to [facility] ED complaining of one episode of bright red blood per rectum this afternoon. Further reports associated abdominal queasiness, diarrhea, generalized weakness, and loss of appetite. Denies true abdominal pain, dizziness, syncope, headache, change in vision, chest pain, new- onset shortness of breath, or trauma. Endorses chronic and unchanged non- productive cough. Was previously on Apixiban for A-fib and a non-mechanical prosthetic aorta; has been discontinued since previous admission (see below). Is currently undergoing chemotherapy for Grade II Follicular Lymphoma, followed by oncologist Dr. Adonis Espinosa. Pt was released from [facility] yesterday (27 September 2017) s/p upper endoscopy and biopsy of duodenal mass (path pending). This admission and transfer from [facility] to [facility] was prompted by similar symptoms and presentation on 21 September 2016. At that time, he was found to be anemic with a hemoglobin of 7.8 and required transfusion of 3 units of PRBCs. Clipping and embolization was attempted unsuccessfully prior to transfer. Pt stated he was encouraged to seek care at [facility] by Dr. Koch office but he did not want to leave [place], so he elected to return to [facility]. PCP: Dr. Monet GI Physician: Dr. Veras with most recent consultation by Dr. Arreola as coverage on 22 September 2017. Oncology Physician: Dr. Adonis Espinosa Past History - Past Medical History Allergies/Adverse Reactions: Allergies Allergy/AdvReac Type Severity Reaction Status Date / Time No Known Drug Allergies Allergy Verified 09/28/17 14:57 Home Medications: Ambulatory Orders Atorvastatin Ca [Lipitor] 40 mg PO HS 01/12/17 levETIRAcetam [Keppra -] 500 mg PO BID tablet 02/24/17 Mirabegron [Myrbetriq] 25 mg PO DAILY 08/07/17 Albuterol 2.5/Ipratropium 0.5 [Duoneb -] 1 amp NEB Q4H PRN amp 09/02/17 Metoprolol Succinate [Toprol XL -] 25 mg PO DAILY tab.sr.24h 09/02/17 Pantoprazole Sodium [Protonix IV] 80 mg IVPB Q10H vial 09/24/17 Anemia: Yes Asthma: No Cancer: Yes (LYMPHOMA, chemo 3 weeks ago) Cardiac Disorders: Yes (AORTIC VALVE REPLACEMENT, TRANSVERSE ARCH GRAFT) CVA: Yes (06/2015) COPD: Yes (ABESTOSIS) CHF: Yes DVT: No Dementia: No Diabetes: No GI Disorders: Yes (HIATAL HERNIA, bleeding ulcer) Disorders: No HTN: Yes Hypercholesterolemia: Yes Liver Disease: No Seizures: No Thyroid Disease: No Comment:: 09/28/17 18:17 - Grade II Follicular Lymphoma, on chemotherapy - Chronic A-Fib - COPD - CHF - HTN - HLD - Surgical History Abdominal Surgery: No Appendectomy: No Cardiac Surgery: Yes (PACEMAKER; VALVE REPLACEMENT,TRANSVERSE ARCH GRAFT) Cholecystectomy: No Lung Surgery: No Neurologic Surgery: No Orthopedic Surgery: No Comments:: 09/28/17 18:18 - PPM implantation - tAVR 2010 - tAVR re-op 2015 - Aortic Root Grafting 2015 - Immunization History Immunization Up to Date: Yes - Suicide/Smoking/Psychosocial Hx Smoking Status: No Smoking History: Former smoker Have you smoked in the past 12 months: No Number of Cigarettes Smoked Daily: 10 If you are a former smoker, when did you quit?: 1982 Cigars Per Day: 1 Information on smoking cessation initiated: Yes 'Breaking Loose' booklet given: 08/16/14 Hx Alcohol Use: No Drug/Substance Use Hx: No Substance Use Type: None Hx Substance Use Treatment: No Review of Systems - Review of Systems Able to Perform ROS?: Yes Is the patient limited Spanish proficient: No Constitutional: Yes: Weakness. No: Chills, Diaphoresis, Fever HEENTM: No: Blurred Vision, Double Vision, Nose Bleeding Respiratory: Yes: SOB with Exertion. No: Productive cough, Hemoptysis Cardiac (ROS): No: Chest Pain, Lightheadedness, Palpitations, Syncope ABD/GI: Yes: Diarrhea, Nausea, Rectal Bleeding. No: Vomiting : No: Hematuria Integumentary: No: Bruising, Rash Neurological: No: Headache, Dizziness Hematologic/Lymphatic: Yes: Anemia *Physical Exam - Vital Signs Last Vital Signs Temp Pulse Resp BP Pulse Ox 99.4 F 80 16 106/56 95 09/28/17 14:59 09/28/17 14:59 09/28/17 14:59 09/28/17 14:59 09/28/17 14:59 - Physical Exam Comments: 09/28/17 18:18 Constitutional: Well-developed, well-nourished male in no acute life threat. Found sitting in wheelchair, assisted pt transfer to hospital bed. Alert and oriented x4. Answered all questions appropriately and completely. Speech was non -labored, non-pressured. Head: normocephalic. Eyes: PERRL. Sclerae white. Conjunctiva pale but not injected. ENT: Lips, gums and oropharynx: pink, moist, no bleeding, not injected, no lesions, no ulcerations. Upper dentures in place. Poor mandibular dentition. Cardiovascular: Irregularly irregular. 5/5 systolic murmur. No rubs or gallops. Peripheral pulses: Radial pulses full Respiratory: Infrequent wet, non-productive cough. Lungs clear to auscultation bilaterally. No stridor, no wheezing, no rhonchi. Gastrointestinal: abdomen is soft, and non-distended. Mild subjective tenderness in LLQ without guarding, grimace, or rebound. No hepatomegaly. No pulsatile masses. No overlying skin lesions or obvious signs of trauma. Neuro: Alert and oriented. Moving all four extremities spontaneously. Psych: Affect: appropriate. Mood: frustrated. Skin: Intact. No lesions. Multiple healed surgical scars noted on chest. MALE RECTAL: Good sphincter tone with obvious melena on digital exam. No bright red blood. ED Treatment Course - LABORATORY CBC & Chemistry Diagram: 09/28/17 16:20 09/28/17 16:20 - ADDITIONAL ORDERS Additional order review: Laboratory Results 09/28/17 09/28/17 09/28/17 16:20 16:20 15:53 PT with INR 14.30 H INR 1.27 H Sodium 146 H Potassium 4.4 Chloride 110 H Carbon Dioxide 28 Anion Gap 8 BUN 32 H Creatinine 1.1 Creat Clearance w eGFR > 60 Random Glucose 105 Calcium 8.7 Total Bilirubin 0.4 AST 8 L D ALT 15 D Alkaline Phosphatase 97 D Total Protein 6.0 L Albumin 3.3 L Stool Occult Blood Positive 09/28/17 16:20 RBC 3.15 L MCV 88.8 MCHC 32.3 RDW 19.1 H MPV 9.4 D Neutrophils % 83.6 H Lymphocytes % 6.8 L D Monocytes % 8.6 Eosinophils % 0.3 Basophils % 0.7 D - RADIOLOGY Radiology Studies Ordered: Category Date Time Status CHEST PA & LAT [RAD] Stat Radiology 09/28/17 16:12 Ordered Medical Decision Making - Medical Decision Making 09/28/17 18:18 67 y/o male complaining of BRBPR and generalized weakness in setting of recent GI bleed required transfusion and s/p endoscopy with duodenal biopsy at [facility] ( discharged yesterday). Afebrile. Vitals unremarkable for hypotension or tachycardia.Hemoccult card positive. Physical exam revealed melena without bright red blood. Concerned for continued GI bleed. Triage RME ordered CBC, CMP, PT/INR, and Type/Screen. Additionally, I ordered 12 -lead EKG and CXR. CBC revealed H/H of 9.1/28. BUN elevated to 32. Concerning for continued UGIB. 17:[address] Veras for GI consultation. 17:[address] Veras. Recommends PPI, Cryoprecipitate, Repeat H/H in 5hrs, NPO status, and admission to observation on telemetry. Will see in the morning. 17:52 Dr. Sullivan agrees to accept pt to observation in telemetry bed. Stated she will order Dr. Koch recommendations. CXR pending at this time. Pt admitted observation to hospitalist service for GI bleed and likely secondary anemia with GI follow up in the morning. *DC/Admit/Observation/Transfer Diagnosis at time of Disposition: Melena GIB (gastrointestinal bleeding) Qualifiers: GI bleed type/associated pathology: unspecified gastrointestinal hemorrhage type Qualified Code(s): K92.2 - Gastrointestinal hemorrhage, unspecified Anemia Qualifiers: Anemia type: other cause Other causes of anemia: other cause, not classified Qualified Code(s): D64.89 - Other specified anemias - Discharge Dispostion Condition at time of disposition: Stable Decision to Admit order: Yes - Referrals Referrals: Viridiana Monet MD [Primary Care Provider] - - Patient Instructions - Post Discharge Activity
--- NOTE | 2017-09-28 18:05 | HP ---
CHIEF COMPLAINT: one episode of bright red blood per rectum this afternoon with queasiness, diarrhea and weaknes PCP: Dr. Monet, PCP Dr. Espinosa, oncologist HISTORY OF PRESENT ILLNESS: Patient is a 67 year old male with a significant past medical history of lymphoma (last chemo 3 weeks ago), atrial fibrillation (was on Eliquis which as been stopped now for 5 days) stroke, COPD, ?seizure (on Keppra), upper GI ulcer , chronic GI bleed. He presents to the ED today with complaints of blood in his stool with dizziness, malaise and weakness. The patient reports a history of melena in the past, repeated EGDs and colonoscopies which have been significant for an ulcer in his small bowel. He was most recently here at [place] on 09/21/2017 and was subsequently transferred to [place] for further GI workup after he had episodes of worsening anemia and dark bowel movements. He was discharged home from [facility] yesterday and is s/p upper endoscopy and biopsy of duodenal mass. but returns back today to [facility] after he had one episode of blood in his stool (bright red blood) dyspnea on exertion, intermittent cough, and general weakness. He denies fever/chills, chest pain, palpitations, or syncope. He is frustrated that he returns back to the ED after being discharged from [facility] yesterday. He is not willing to go back to [place] at this time. ER course was notable for: (1) +stool positive for blood (2) wbc 11.6 (3) Right subclavian mediport access (4) hmg 9.1 Recent Travel: none PAST MEDICAL HISTORY: as noted above PAST SURGICAL HISTORY: Social History: Smoking: denies Alcohol: denies Drugs: denies Family History: Allergies No Known Drug Allergies Allergy (Verified 09/28/17 14:57) HOME MEDICATIONS: Home Medications Medication Instructions Recorded Atorvastatin Ca [Lipitor] 40 mg PO HS 01/12/17 levETIRAcetam [Keppra -] 500 mg PO BID tablet 02/24/17 Mirabegron [Myrbetriq] 25 mg PO DAILY 08/07/17 Albuterol 2.5/Ipratropium 0.5 1 amp NEB Q4H PRN amp 09/02/17 [Duoneb -] Metoprolol Succinate [Toprol XL -] 25 mg PO DAILY tab.sr.24h 09/02/17 Pantoprazole Sodium [Protonix IV] 80 mg IVPB Q10H vial 09/24/17 PHYSICAL EXAMINATION Vital Signs - 24 hr 09/28/17 14:59 Temperature 99.4 F Pulse Rate 80 Respiratory 16 Rate Blood Pressure 106/56 O2 Sat by Pulse 95 Oximetry (%) GENERAL: Awake, alert, and fully oriented, in no acute distress. HEAD: Normal with no signs of trauma. EYES: Pupils equal, round and reactive to light, extraocular movements intact, sclera anicteric, conjunctiva clear, pale. No lid lag. EARS, NOSE, THROAT: Ears normal, nares patent, oropharynx clear without exudates. Moist mucous membranes. NECK: Normal range of motion, supple without lymphadenopathy, JVD, or masses. LUNGS: Breath sounds equal, clear to auscultation bilaterally. No wheezes, and no crackles. No accessory muscle use. HEART: Regular rate and rhythm, normal S1 and S2 without murmur, rub or gallop. ABDOMEN: Obese, soft, nontender, not distended, normoactive bowel sounds, no guarding, no rebound, no masses. No hepatomegaly or splenomegaly. RECTUM: + stool occult MUSCULOSKELETAL: Normal range of motion at all joints. No bony deformities or tenderness. No CVA tenderness. UPPER EXTREMITIES: 2+ pulses, warm, well-perfused. No cyanosis. No clubbing. No peripheral edema. LOWER EXTREMITIES: 2+ pulses, warm, well-perfused. No calf tenderness. No peripheral edema. NEUROLOGICAL: Cranial nerves II-XII intact. Normal speech. Gait not observed. PSYCHIATRIC: Cooperative. Good eye contact. Appropriate mood and affect. SKIN: Warm, dry, normal turgor, no rashes or lesions noted, normal capillary refill. Laboratory Results - last 24 hr 09/28/17 09/28/17 09/28/17 15:53 16:20 16:20 WBC 11.6 H RBC 3.15 L Hgb 9.1 L Hct 28.0 L D MCV 88.8 MCH 28.7 MCHC 32.3 RDW 19.1 H Plt Count 218 MPV 9.4 D Absolute Neuts (auto) 9.7 Neutrophils % 83.6 H Lymphocytes % 6.8 L D Monocytes % 8.6 Eosinophils % 0.3 Basophils % 0.7 D Nucleated RBC % 0 PT with INR 14.30 H INR 1.27 H Sodium Potassium Chloride Carbon Dioxide Anion Gap BUN Creatinine Creat Clearance w eGFR Random Glucose Calcium Total Bilirubin AST ALT Alkaline Phosphatase Total Protein Albumin Stool Occult Blood Positive 09/28/17 16:20 WBC RBC Hgb Hct MCV MCH MCHC RDW Plt Count MPV Absolute Neuts (auto) Neutrophils % Lymphocytes % Monocytes % Eosinophils % Basophils % Nucleated RBC % PT with INR INR Sodium 146 H Potassium 4.4 Chloride 110 H Carbon Dioxide 28 Anion Gap 8 BUN 32 H Creatinine 1.1 Creat Clearance w eGFR > 60 Random Glucose 105 Calcium 8.7 Total Bilirubin 0.4 AST 8 L D ALT 15 D Alkaline Phosphatase 97 D Total Protein 6.0 L Albumin 3.3 L Stool Occult Blood ASSESSMENT/PLAN: Patient presents to the ED today with complaints of blood in his stool with dizziness, malaise and weakness. GI: Acute Blood Loss Anemia: Hmg/hct low stable. Will order cryoprecipitate, PPI, IVF and keep NPO. GI consulted. Repeat labs this evening and again in a.m. Hematology consult placed. Stool occult positive. Card: Atrial fibrillation, off anticoagulation. On metoprolol IV q4 with parameters. Eliquis has been discontinued x 5 days per patient. Maintain map > 65. Cardiology consulted. EKG with paced rhythm. Monitor on tele. Hyperlipidemia: On home statin, hold while NPO. Pulm: Mild cough/COPD: on duonebs. Monitor. Neuro: Hx of CVA in past, history of ?seizures: patient on Keppra 500mg PO BID @ home. Convert to IV while NPO. Oncology: Follicular lymphoma, recent chemo x 3 weeks ago. Will consult Dr. Espinosa. ID: Leukocytosis on immunocompromised patient: blood and urine cultures sent and pending. fen NS @ 75cc/hr monitor electrolytes NPO Prophy: a/c contraindicated 2/2 to blood loss anemia SCDs Code Status: Full Code disposition: full code * Please obtain records from recent hospitalization @ [facility]* Visit type - Emergency Visit Emergency Visit: Yes ED Registration Date: 09/28/17 Care time: The patient presented to the Emergency Department on the above date and was hospitalized for further evaluation of their emergent condition. - New Patient This patient is new to me today: Yes Date on this admission: 09/28/17 - Critical Care Critical Care patient: No Hospitalist Screening - Colonoscopy Questionnaire Colonoscopy Questionnaire: Colonoscopy Questionnaire - Patient: 50 - 75 years old and never had a screening colonoscopy: Unknown History of colon or rectal polyps, or CA: Unknown History of IBD, Crohn's disease or UC: Unknown History of abdominal radiation therapy as a child: Unknown - Relative: 1 with colon or rectal CA, or polyps at age 60 or younger: Unknown Colon or rectal CA diagnosed at age 45 or younger: Unknown Multiple relatives with colon or rectal CA: Unknown - Outcome: Screening Result: Negative Screen
--- NOTE | 2017-09-28 18:23 | PDOC ---
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 sided weakness, AFib/AVR ( on Eliquis) and gastric gastric ulcer s/p admission 09/21 here for GIB, transfused and then transferred to [place] where his bleeding improved after endoscopy presents to the emergency department with rectal bleeding. Patient reports an episode of bloody bowel movement this afternoon accompanied with diarrhea, generalized weakness and loss of appetite. Patient reports a chronic history of non-productive cough, without relief. The patient states he was discharged from [facility] a day prior s/p upper endoscopy and biopsy of duodenal mass, with pending results. Denies fever, chills or a headache. Denies chest pain or shortness of breath. Denies hematochezia or melena. Denies dysuria, hematuria, frequency or urgency to urinate. Allergies: NKDA Social history: Former cigarettes smoker. Denies the use of alcohol or recreational drug use. Surgical history: PPM insertion, aortic valve replacement w/ revision, Transverse aortic arch graft for aneurysms, EGD 07/17/17 (shows villarreal's esophagus and duodenal ulcer; Bx negative), Colonoscopy 07/17/17 (shows multiple polyps removed, all benign) PCP: Dr. Viridiana Monet GI: Dr. Sergio Veras MD. ONC: Dr. Adonis Espinosa. - Physicial Exam PE: 09/28/17 18:26 GENERAL: Well developed, well nourished. Awake and alert. No acute distress. HEENT: Normocephalic, atraumatic. PERRLA, EOMI. No conjunctival pallor. Sclera are non- icteric. Moist mucous membranes. Oropharynx is clear. NECK: Supple. Full ROM. No JVD. Carotid pulses 2+ and symmetric, without bruits. No thyromegaly. No lymphadenopathy. CARDIOVASCULAR: (+) Murmur. Regular rate and rhythm. No rubs, or gallops. Distal pulses are 2+ and symmetric. PULMONARY: No evidence of respiratory distress. Lungs clear to auscultation bilaterally. No wheezing, rales or rhonchi. ABDOMINAL: (+) Protuberance. Soft. Non-tender. No rebound or guarding. No organomegaly. Normoactive bowel sounds. MUSCULOSKELETAL Normal range of motion at all joints. No bony deformities or tenderness. No CVA tenderness. EXTREMITIES: (+) 1+ pitting edema. (+) Chronic venous stasis. No cyanosis. No clubbing. No edema. No calf tenderness. SKIN: Warm and dry. Normal capillary refill. No rashes. No jaundice. NEUROLOGICAL: Alert, awake, appropriate. Cranial nerves 2-12 intact. No deficits to light touch and temperature in face, upper extremities and lower extremities. No motor deficits in the in face, upper extremities and lower extremities. Normoreflexic in the upper and lower extremities. Normal speech. Toes are down- going bilaterally. Gait is normal without ataxia. PSYCHIATRIC: Cooperative. Good eye contact. Appropriate mood and affect. - Medical Decision Making 09/28/17 19:00 Documentation prepared by Payton Parra, acting as medical assisting instructor for Nori Gasca MD. <Payton Parra - Last Filed: 09/28/17 18:57> - Resident Resident Name: Wang Henning - ED Attending Attestation I have performed the following: I have examined & evaluated the patient, The case was reviewed & discussed with the resident, I agree w/resident's findings & plan, Exceptions are as noted - HPI HPI: 09/28/17 18:22 67-year-old male who is currently being treated at [facility] for a GI mass was recently discharged from this hospital after a GI bleed. Today presents again with history of melena - Medical Decision Making 09/28/17 18:23 pr w lymphoma,recurrent GI bleed Dr. Henning spoke with Dr. Veras and the plan is to admit this patient -to place him on PPIs, give cryoprecipitate, repeat his hemoglobin and hematocrit and 5 hours and admit to telemetry. -Current hemoglobin is 9 Patient admitted by the hospitalist 09/28/17 19:05 <Nori Gasca - Last Filed: 09/28/17 19:06>
[2017-09-28] MEDS ORDERED: PANTOPRAZOLE SODIUM 40 MG VIAL IVPUSH ONE (18:45)
[2017-09-28] MEDS: METOPROLOL TARTRATE 5 MG/5 ML VIAL IVPUSH SCH ×2 (21:37→23:25)
[2017-09-28] MEDS: SODIUM CHLORIDE 1,000 ML IV SCH (21:38)
[2017-09-28] MEDS ORDERED: PANTOPRAZOLE SODIUM 40 MG/100 ML BAG IVPB ONE (21:39)
[2017-09-28] MEDS ORDERED: levETIRAcetam 500 MG/5 ML INJECTION VIAL IVPB ONE (22:05)
[2017-09-28] MEDS: levETIRAcetam 500 MG/5 ML INJECTION VIAL IVPB SCH (22:17)
[2017-09-28] MEDS ORDERED: ALBUTEROL SO4 2.5/IPRATROPIUM 0.5 INH SOL 3 ML VIAL.NEB. NEB PRN (22:48)
[2017-09-28 23:15] VITALS: BMI 27.3
[2017-09-29 00:07] LABS: BASO % 0.6 % (0-2.0); EOS % 0.5 % (0-4.5); HEMATOCRIT 26.1 % (35.4-49); HEMOGLOBIN 8.4 GM/dL (11.7-16.9); LYMPH % 8.4 % (8-40); MCH 28.4 pg (25.7-33.7); MCHC 32.2 g/dl (32.0-35.9); MEAN CELL VOLUME 88.1 fl (80-96); MONO % 8.8 % (3.8-10.2); NEUT % 81.7 % (42.8-82.8); PLATELET COUNT 198 K/MM3 (134-434); RBC 2.96 M/mm3 (4.00-5.60); RDW 18.8 % (11.9-15.9); WHITE BLOOD COUNT 9.4 K/mm3 (4.0-10.0)
[2017-09-29] MEDS: METOPROLOL TARTRATE 5 MG/5 ML VIAL IVPUSH SCH ×6 (03:30→22:58)
[2017-09-29 07:34] LABS: HEMATOCRIT 23.5 % (35.4-49); HEMOGLOBIN 7.8 GM/dL (11.7-16.9); MCH 29.5 pg (25.7-33.7); MCHC 33.2 g/dl (32.0-35.9); MEAN CELL VOLUME 88.7 fl (80-96); MEAN PLT VOLUME 9.3 fl (7.5-11.1); PLATELET COUNT 189 K/MM3 (134-434); RBC 2.65 M/mm3 (4.00-5.60); RDW 19.2 % (11.9-15.9); WHITE BLOOD COUNT 9.3 K/mm3 (4.0-10.0)
[2017-09-29 08:16] LABS: ANION GAP 8 (8-16); BLOOD UREA NITROGEN 38 mg/dL (7-18); CALCIUM 8.4 mg/dL (8.5-10.1); CHLORIDE 113 mmol/L (98-107); CHOLESTEROL 97 mg/dL (50-200); CO2 27 mmol/L (21-32); GLUCOSE,RANDOM 99 mg/dL (74-106); MAGNESIUM 1.7 mg/dL (1.8-2.4); POTASSIUM 4.1 mmol/L (3.5-5.1); SODIUM 148 mmol/L (136-145); TRIGLYCERIDES 143 mg/dL (35-160)
[2017-09-29 08:17] LABS: HDL CHOLESTEROL 37 mg/dL (40-60)
--- NOTE | 2017-09-29 11:11 | CON.CARD ---
Consult Consult Specialty:: Cardiology Referred by:: Dr. 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), CAD, HTN, hypercholesterolemia and follicular lymphoma s/p chemotherapy who presents with GI bleed. He has had numerous endoscopic interventions here in [facility], [facility] and recently at [facility] with Dr. Oswaldo Sánchez, Patient Financial Advocate last week. He was transferred to [facility] last week and was discharged from the hospital on Thursday. He developed bleeding again on Thursday (yesterday) which prompted him to be readmitted to [facility]. He is being transfused with PRBC this morning. He denies chest pain, SOB or palpitations. He denies paroxysmal nocturnal dyspnea or orthopnea. He denies fever or chills. He denies headache or lightheadedness. He denies nausea, vomiting or abdominal cramps. 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 Cardio/Vascular: Yes: AFIB, CAD, HTN, Hyperlipdemia, Other (AVR) Pulmonary: Yes: COPD Gastrointestinal: Yes: GI Bleed (egd 07/17/17 DU, colonoscopyy 07/17 multiple polyps ), Peptic Ulcer Disease Infectious Disease: Yes: MRSA - Past Surgical History Past Surgical History: Yes: Valve Replacement - Alcohol/Substance Use Hx Alcohol Use: No History of Substance Use: reports: None - Smoking History Smoking history: Former smoker Have you smoked in the past 12 months: No Aproximately how many cigarettes per day: 10 If you are a former smoker, when did you quit?: 1981 - Social History Usual Living Arrangement: With Spouse ADL: Independent 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 History of Recent Travel: No Home Medications - Allergies Allergies/Adverse Reactions: Allergies Allergy/AdvReac Type Severity Reaction Status Date / Time No Known Drug Allergies Allergy Verified 09/28/17 14:57 - Home Medications Home Medications: Ambulatory Orders Atorvastatin Ca [Lipitor] 40 mg PO HS 01/12/17 levETIRAcetam [Keppra -] 500 mg PO BID tablet 02/24/17 Mirabegron [Myrbetriq] 25 mg PO DAILY 08/07/17 Albuterol 2.5/Ipratropium 0.5 [Duoneb -] 1 amp NEB Q4H PRN amp 09/02/17 Metoprolol Succinate [Toprol XL -] 25 mg PO DAILY tab.sr.24h 09/02/17 Pantoprazole Sodium [Protonix IV] 80 mg IVPB Q10H vial 09/24/17 Review of Systems - Review of Systems Constitutional: denies: Chills, Fever Cardiovascular: denies: Chest Pain, Palpitations, Shortness of Breath Respiratory: denies: Cough, Hemoptysis, Orthopnea, PND, SOB, SOB on Exertion Gastrointestinal: reports: Melena, Rectal Bleeding. denies: Abdominal Pain, Constipation, Diarrhea, Nausea, Vomiting Musculoskeletal: denies: Joint Pain Neurological: denies: Dizziness, Headache, Seizure, Syncope, Weakness Vital Signs: Vital Signs Temperature 99.1 F 09/29/17 06:00 Pulse Rate 82 09/29/17 06:00 Respiratory Rate 20 09/29/17 09:00 Blood Pressure 97/59 09/29/17 06:00 O2 Sat by Pulse Oximetry (%) 97 09/29/17 09:00 Neck: Yes: Supple Respiratory: Yes: CTA Bilaterally Gastrointestinal: Yes: Normal Bowel Sounds, Soft. No: Tenderness Cardiovascular: Yes: Regular Rate and Rhythm. No: Rub JVD: No Carotid Bruit: No PMI: Non-Displaced Heart Sounds: Yes: S1, S2 Edema: No - Other Data Labs, Other Data: CBC, BMP 09/29/17 05:30 09/29/17 05:30 INR, PTT INR 1.27 (0.82-1.09) H 09/28/17 16:20 Troponin, BNP 09/28/17 09/29/17 09/29/17 23:30 05:30 05:30 Troponin I 0.17 H 0.13 H Cancelled V paced with underlying AF Imaging - Results Chest X-ray: Report Reviewed (Unremarkable) EKG: Report Reviewed Problem List - Problems (1) Anemia Code(s): D64.9 - ANEMIA, UNSPECIFIED Qualifiers: Anemia type: other cause Other causes of anemia: other cause, not classified Qualified Code(s): D64.89 - Other specified anemias (2) GI bleeding Code(s): K92.2 - GASTROINTESTINAL HEMORRHAGE, UNSPECIFIED Qualifiers: GI bleed type/associated pathology: unspecified gastrointestinal hemorrhage type Qualified Code(s): K92.2 - Gastrointestinal hemorrhage, unspecified (3) Melena Code(s): K92.1 - MELENA (4) Acute blood loss anemia Code(s): D62 - ACUTE POSTHEMORRHAGIC ANEMIA (5) Atrial fibrillation Code(s): I48.91 - UNSPECIFIED ATRIAL FIBRILLATION Qualifiers: Atrial fibrillation type: persistent Qualified Code(s): I48.1 - Persistent atrial fibrillation (6) COPD (chronic obstructive pulmonary disease) Code(s): J44.9 - CHRONIC OBSTRUCTIVE PULMONARY DISEASE, UNSPECIFIED Qualifiers: COPD type: chronic bronchitis (7) Demand ischemia Code(s): I24.8 - OTHER FORMS OF ACUTE ISCHEMIC HEART DISEASE (8) Diastolic dysfunction without heart failure Code(s): I51.89 - OTHER ILL-DEFINED HEART DISEASES (9) HTN (hypertension) Code(s): I10 - ESSENTIAL (PRIMARY) HYPERTENSION Qualifiers: Hypertension type: essential hypertension Qualified Code(s): I10 - Essential (primary) hypertension (10) History of heart valve repair Code(s): Z98.890 - OTHER SPECIFIED POSTPROCEDURAL STATES (11) History of prosthetic aortic valve Code(s): Z95.2 - PRESENCE OF PROSTHETIC HEART VALVE (12) Lymphoma Code(s): C85.90 - NON-HODGKIN LYMPHOMA, UNSPECIFIED, UNSPECIFIED SITE Qualifiers: Lymphoma type: non-Hodgkin Non-Hodgkin lymphoma type: follicular Follicular lymphoma grade: grade II Lymphoma site: lower extremity Qualified Code(s): C82.15 - Follicular lymphoma grade II, lymph nodes of inguinal region and lower limb (13) Pacemaker Code(s): Z95.0 - PRESENCE OF CARDIAC PACEMAKER Assessment/Plan 1. GI bleed, etiology to be clarified, duodenal ulcer, anemia 2. Permanent AF currently off anticoagulation due to above, [id number] score probably 2 3. HTN 4. Hypercholesterolemia 5. AVR (bioprosthesis) with total aortic arch replacement, history of endocarditis 6. COPD 7. SSS s/p PPM 8. Follicular lymphoma s/p chemotherapy PLAN: 1. Transfuse PRBC and follow CBC closely 2. Contact GI at [facility] and obtain recent medical records 3. GI input from [facility] to follow 4. Patient understands the stroke risk off anticoagulation. Eventually will need to be resumed on NOAC when cleared 5. Consideration for Watchman/AGUEDA occlusion device but will need to take anticoagulation immediately post device insertion, therefore; will have to wait until he is cleared 6. Continue Metoprolol Primary bead picker: Alexis Wallace MD of [facility] Further plans are to follow Chiki Hutchison MD
--- NOTE | 2017-09-29 11:24 | EKG ---
Test Reason : Blood Pressure : / mmHG Vent. Rate : 080 BPM Atrial Rate : 094 BPM P-R Int : 000 ms QRS Dur : 162 ms QT Int : 448 ms P-R-T Axes : 000 -45 070 degrees QTc Int : 516 ms Ventricular-paced rhythm ABNORMAL ECG Confirmed by MD HILARIO, [place] ([id number]) on 09/29/2017 11:24:04 AM Referred By: Confirmed By:KY RICH MD
--- NOTE | 2017-09-29 14:11 | PN ---
Progress Note, Physician Chief Complaint: patient seen and examined spoke to dr joe baum who spoke to GI at [place] patient got one prbc and one cryoprecipitate postive occult blood came in with complain of blood in stool and feeling dizzy and found to have low h/h now patient is in the process of transfer to [facility] - Current Medication List Current Medications: Active Medications Albuterol/Ipratropium (Duoneb -) 1 amp NEB Q6H PRN PRN Reason: SHORTNESS OF BREATH Sodium Chloride (Normal Saline -) 1,000 mls @ 100 mls/hr IV ASDIR [facility] Last Admin: 09/28/17 21:38 Dose: 100 mls/hr Levetiracetam (Keppra Injection -) 500 mg IVPB BID [facility] Last Admin: 09/28/17 22:17 Dose: 500 mg Metoprolol Tartrate (Lopressor Injection -) 5 mg IVPUSH Q4H [facility] Last Admin: 09/29/17 06:16 Dose: Not Given Pantoprazole Sodium (Protonix Iv) 40 mg IVPUSH BID [facility] - Objective Vital Signs: Vital Signs Temperature 98.4 F 09/29/17 10:15 Pulse Rate 80 09/29/17 10:15 Respiratory Rate 20 09/29/17 10:15 Blood Pressure 109/53 09/29/17 10:15 O2 Sat by Pulse Oximetry (%) 97 09/29/17 09:00 Constitutional: Yes: Calm Cardiovascular: Yes: Regular Rate and Rhythm, S1, S2 Respiratory: Yes: Diminished (at bases), Rhonchi Gastrointestinal: Yes: Normal Bowel Sounds, Soft Extremities: Yes: Other (chronic venous stasis) Edema: Yes Neurological: Yes: Alert, Oriented Labs: CBC, BMP 09/29/17 05:30 09/29/17 05:30 INR, PTT INR 1.27 (0.82-1.09) H 09/28/17 16:20 Problem List - Problems (1) Anemia Assessment/Plan: s/p prbc currently h/h 7.3 down from 9.1 spoke to transfer center at [place] and patient should get a bed later today at [place] dr lowell claudio will accept the patient Code(s): D64.9 - ANEMIA, UNSPECIFIED Qualifiers: Anemia type: other cause Other causes of anemia: other cause, not classified Qualified Code(s): D64.89 - Other specified anemias (2) GI bleeding Assessment/Plan: postive stool s/p endoscopy and biopsy of duodenal mass at his recent stay at [facility] was discharged yesterday and then returned back to [facility] with [place] exertion and weakness and blood per rectum Code(s): K92.2 - GASTROINTESTINAL HEMORRHAGE, UNSPECIFIED Qualifiers: GI bleed type/associated pathology: unspecified gastrointestinal hemorrhage type Qualified Code(s): K92.2 - Gastrointestinal hemorrhage, unspecified (3) Atrial fibrillation Assessment/Plan: off metoprolol BP is lower end and HR is controlled dr joe baum spoke to dr lowell cerda spoke to accepting team as well Code(s): I48.91 - UNSPECIFIED ATRIAL FIBRILLATION Qualifiers: Atrial fibrillation type: persistent Qualified Code(s): I48.1 - Persistent atrial fibrillation (4) Lymphoma Assessment/Plan: s/p chemo therapy 3 weeks ago Code(s): C85.90 - NON-HODGKIN LYMPHOMA, UNSPECIFIED, UNSPECIFIED SITE Qualifiers: Lymphoma type: non-Hodgkin Non-Hodgkin lymphoma type: follicular Follicular lymphoma grade: grade II Lymphoma site: lower extremity Qualified Code(s): C82.15 - Follicular lymphoma grade II, lymph nodes of inguinal region and lower limb
--- NOTE | 2017-09-29 14:30 | DS ---
Physical Examination Vital Signs: Vital Signs Temperature 98.4 F 09/29/17 10:15 Pulse Rate 80 09/29/17 10:15 Respiratory Rate 20 09/29/17 10:15 Blood Pressure 109/53 09/29/17 10:15 O2 Sat by Pulse Oximetry (%) 97 09/29/17 09:00 Constitutional: Yes: Calm Respiratory: Yes: Diminished (at the bases), Rhonchi (scattered) Gastrointestinal: Yes: Normal Bowel Sounds, Soft Extremities: Yes: Other (chronic venous stasis changes of LE) Edema: Yes Neurological: Yes: Alert, Oriented Labs: CBC, BMP 09/29/17 05:30 09/29/17 05:30 Discharge Summary Reason For Visit: GI HEMORRHAGE; ANEMIA DUE TO OCCULT BLOOD Current Active Problems Anemia (Acute) GI bleeding (Acute) Melena (Acute) Hospital Course: CHIEF COMPLAINT: one episode of bright red blood per rectum this afternoon with queasiness, diarrhea and weakness PCP: Dr. Monet, PCP Dr. Espinosa, oncologist HISTORY OF PRESENT ILLNESS: Patient is a 67 year old male with a significant past medical history of lymphoma (last chemo 3 weeks ago), atrial fibrillation (was on Eliquis which as been stopped now for 5 days) stroke, COPD, ?seizure (on Keppra), upper GI ulcer , chronic GI bleed. He presents to the ED today with complaints of blood in his stool with dizziness, malaise and weakness. The patient reports a history of melena in the past, repeated EGDs and colonoscopies which have been significant for an ulcer in his small bowel. He was most recently here at [facility] on 09/21/2017 and was subsequently transferred to [facility] for further GI workup after he had episodes of worsening anemia and dark bowel movements. He was discharged home from [facility] yesterday and is s/p upper endoscopy and biopsy of duodenal mass. but returns back today to [facility] after he had one episode of blood in his stool (bright red blood) dyspnea on exertion, intermittent cough, and general weakness. He denies fever/chills, chest pain, palpitations, or syncope. He is frustrated that he returns back to the ED after being discharged from [facility] yesterday. He is not willing to go back to [facility] at this time. ER course was notable for: (1) +stool positive for blood (2) wbc 11.6 (3) Right subclavian mediport access in ER found to have Hbg 9.1 which is now down to 7.8 patient got PRBC and cryoprecipatate off all cardiac meds on telemtry floor our cardiology service spoke to Dr lowell HOLLIDAY at [facility] who accepting patient to service awaiting bed at [facility] i have spoken to transfer center Condition: Guarded - Instructions Referrals: Viridiana Monet MD [Primary Care Provider] - Disposition: TRANSFER ACUTE CARE/OTHER HOSP - Home Medications Comprehensive Discharge Medication List: Ambulatory Orders Atorvastatin Ca [Lipitor] 40 mg PO HS 01/12/17 levETIRAcetam [Keppra -] 500 mg PO BID tablet 02/24/17 Mirabegron [Myrbetriq] 25 mg PO DAILY 08/07/17 Albuterol 2.5/Ipratropium 0.5 [Duoneb -] 1 amp NEB Q4H PRN amp 09/02/17 Metoprolol Succinate [Toprol XL -] 25 mg PO DAILY tab.sr.24h 09/02/17 Pantoprazole Sodium [Protonix IV] 80 mg IVPB Q10H vial 09/24/17
[2017-09-29] MEDS: levETIRAcetam 500 MG/5 ML INJECTION VIAL IVPB SCH ×2 (15:07→21:50)
[2017-09-29] MEDS: PANTOPRAZOLE SODIUM 40 MG VIAL IVPUSH SCH ×2 (15:07→21:50)
[2017-09-29 16:04] LABS: BASO % 0.6 % (0-2.0); EOS % 0.4 % (0-4.5); HEMATOCRIT 26.7 % (35.4-49); HEMOGLOBIN 8.5 GM/dL (11.7-16.9); LYMPH % 5.2 % (8-40); MCH 28.3 pg (25.7-33.7); MCHC 31.8 g/dl (32.0-35.9); MEAN CELL VOLUME 89.1 fl (80-96); MEAN PLT VOLUME 9.4 fl (7.5-11.1); MONO % 6.8 % (3.8-10.2); PLATELET COUNT 220 K/MM3 (134-434); RBC 2.99 M/mm3 (4.00-5.60); RDW 17.8 % (11.9-15.9)
--- NOTE | 2017-09-29 19:31 | CON.GI ---
Consult Consult Specialty:: GI Referred by:: Dr. Monet Reason for Consultation:: Duodenal lesion/ulcer bleeding - History of Present Illness History of Present Illness: Chart reviewed. Current and recent events noted. The pt is well knows to GI service. Had EGD with biopsies at [facility] on and d/c home on Thursday. Came to [facility] last evening with symptomatic anemia/melena. Nolonger on ELiquis, or other high risk for bleeding medications. Received 1 u of PRBC. No active GI bleeding at this time. Normal VS. Awaiting to be transferred back to [facility] GI service. The pt has non-healing, duodenal ulcer with negative for meoplasm biopsies (2 EGDs at [facility] and 1 at [facility]). 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 Cardio/Vascular: Yes: AFIB, CAD, HTN, Hyperlipdemia, Other (AVR) Pulmonary: Yes: COPD Gastrointestinal: Yes: GI Bleed (egd 07/17/17 DU, colonoscopyy 07/17 multiple polyps ), Peptic Ulcer Disease Infectious Disease: Yes: MRSA - Past Surgical History Past Surgical History: Yes: Valve Replacement - Alcohol/Substance Use Hx Alcohol Use: No History of Substance Use: reports: None - Smoking History Smoking history: Former smoker Have you smoked in the past 12 months: No Aproximately how many cigarettes per day: 10 If you are a former smoker, when did you quit?: 1981 - Social History Usual Living Arrangement: With Spouse ADL: Independent 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 History of Recent Travel: No Home Medications - Allergies Allergies/Adverse Reactions: Allergies Allergy/AdvReac Type Severity Reaction Status Date / Time No Known Drug Allergies Allergy Verified 09/28/17 14:57 - Home Medications Home Medications: Ambulatory Orders Atorvastatin Ca [Lipitor] 40 mg PO HS 01/12/17 levETIRAcetam [Keppra -] 500 mg PO BID tablet 02/24/17 Mirabegron [Myrbetriq] 25 mg PO DAILY 08/07/17 Albuterol 2.5/Ipratropium 0.5 [Duoneb -] 1 amp NEB Q4H PRN amp 09/02/17 Metoprolol Succinate [Toprol XL -] 25 mg PO DAILY tab.sr.24h 09/02/17 Pantoprazole Sodium [Protonix IV] 80 mg IVPB Q10H vial 07/12/18 Albuterol 2.5/Ipratropium 0.5 [Duoneb -] 1 amp NEB Q6H PRN amp 09/29/17 Pantoprazole Sodium [Protonix IV] 40 mg IVPUSH BID #0 vial 09/29/17 levETIRAcetam INJECTION [Keppra Injection -] 500 mg IVPB BID ml 09/29/17 Family Disease History - Family Disease History Family History: Unremarkable Review of Systems Findings/Remarks: as per HPI, H&P, ED Physical Exam-GI Vital Signs: Vital Signs Temperature 99 F 09/29/17 18:09 Pulse Rate 80 09/29/17 18:09 Respiratory Rate 20 09/29/17 18:09 Blood Pressure 122/70 09/29/17 18:09 O2 Sat by Pulse Oximetry (%) 97 09/29/17 09:00 Constitutional: Yes: Well Nourished, No Distress, Calm Eyes: Yes: Conjunctiva Clear HENT: Yes: Atraumatic Neck: Yes: Supple Cardiovascular: No: Bradycardia, Tachycardia Respiratory: Yes: Regular ...Auscultate: Yes: Normoactive Bowel Sounds ...Palpate: Yes: Soft. No: Firm/Rigid, Guarding, Mass, Tenderness, Tenderness, Rebound Neurological: Yes: Alert, Oriented Labs: CBC, BMP 09/29/17 15:15 09/29/17 05:30 INR, PTT INR 1.27 (0.82-1.09) H 09/28/17 16:20 Laboratory Last Values WBC 13.0 K/mm3 (4.0-10.0) H 09/29/17 15:15 RBC 2.99 M/mm3 (4.00-5.60) L 09/29/17 15:15 Hgb 8.5 GM/dL (11.7-16.9) L 09/29/17 15:15 Hct 26.7 % (35.4-49) L 09/29/17 15:15 MCV 89.1 fl (80-96) 09/29/17 15:15 MCH 28.3 pg (25.7-33.7) 09/29/17 15:15 MCHC 31.8 g/dl (32.0-35.9) L 09/29/17 15:15 RDW 17.8 % (11.9-15.9) H 09/29/17 15:15 Plt Count 220 K/MM3 (134-434) 09/29/17 15:15 MPV 9.4 fl (7.5-11.1) 09/29/17 15:15 Absolute Neuts (auto) 11.3 # 09/29/17 15:15 Neutrophils % 87.0 % (42.8-82.8) H 09/29/17 15:15 Lymphocytes % 5.2 % (8-40) L D 09/29/17 15:15 Monocytes % 6.8 % (3.8-10.2) 09/29/17 15:15 Eosinophils % 0.4 % (0-4.5) 09/29/17 15:15 Basophils % 0.6 % (0-2.0) 09/29/17 15:15 Nucleated RBC % 0 % (0-0) 09/29/17 15:15 PT with INR 14.30 SEC (9.7-13.0) H 09/28/17 16:20 INR 1.27 (0.82-1.09) H 09/28/17 16:20 Sodium 148 mmol/L (136-145) H 09/29/17 05:30 Potassium 4.1 mmol/L (3.5-5.1) 09/29/17 05:30 Chloride 113 mmol/L (98-107) H 09/29/17 05:30 Carbon Dioxide 27 mmol/L (21-32) 09/29/17 05:30 Anion Gap 8 (8-16) 09/29/17 05:30 BUN 38 mg/dL (7-18) H 09/29/17 05:30 Creatinine 1.0 mg/dL (0.7-1.3) 09/29/17 05:30 Creat Clearance w eGFR > 60 (>60) 09/29/17 05:30 Random Glucose 99 mg/dL (74-106) 09/29/17 05:30 Calcium 8.4 mg/dL (8.5-10.1) L 09/29/17 05:30 Magnesium 1.7 mg/dL (1.8-2.4) L 09/29/17 05:30 Total Bilirubin 0.4 mg/dL (0.2-1.0) 09/28/17 16:20 AST 8 U/L (15-37) L D 09/28/17 16:20 ALT 15 U/L (12-78) D 09/28/17 16:20 Alkaline Phosphatase 97 U/L (45-117) D 09/28/17 16:20 Troponin I 0.13 ng/ml (0.00-0.05) H 09/29/17 05:30 Total Protein 6.0 g/dl (6.4-8.2) L 09/28/17 16:20 Albumin 3.3 g/dl (3.4-5.0) L 09/28/17 16:20 Triglycerides 143 mg/dL (35-160) D 09/29/17 05:30 Cholesterol 97 mg/dL (50-200) D 09/29/17 05:30 Total LDL Cholesterol 42 mg/dL (5-100) D 09/29/17 05:30 HDL Cholesterol 37 mg/dL (40-60) L D 09/29/17 05:30 Stool Occult Blood Positive (NEGATIVE) 09/28/17 15:53 Blood Type A POSITIVE 09/28/17 16:20 Antibody Screen Negative 09/28/17 16:20 Crossmatch See Detail 09/28/17 16:20 Problem List - Problems (1) Duodenal ulcer Code(s): K26.9 - DUODENAL ULCER, UNSP ACUTE OR CHRONIC, W/O HEMOR OR PERF (2) Duodenal ulcer Code(s): K26.9 - DUODENAL ULCER, UNSP ACUTE OR CHRONIC, W/O HEMOR OR PERF Assessment/Plan The pt should evaluated for surgical options given the recurrent, symptomastic non-healing duodenal ulcer bleeding requiring repeated, prolonged hospitalizations. Biopsies of the ulcer done here and at [facility] failed to show malignancy. The results of the most recent biopsy performed at [facility] are still pending. PPI PO bid Soft diet Daily CBC Close monitoring of VS and for signs of bleeding Discussed with the patient
[2017-09-29] MEDS: SODIUM CHLORIDE 1,000 ML IV SCH (19:54)
[2017-09-30] MEDS: METOPROLOL TARTRATE 5 MG/5 ML VIAL IVPUSH SCH ×2 (02:49→06:05)
--- NOTE | 2017-09-30 10:27 | PN ---
Progress Note, Physician History of Present Illness: Remains NPO, no further bleeding, Hgb stable post transfusion. - Current Medication List Current Medications: Active Medications Albuterol/Ipratropium (Duoneb -) 1 amp NEB Q6H PRN PRN Reason: SHORTNESS OF BREATH Last Admin: 09/29/17 20:35 Dose: 1 amp Sodium Chloride (Normal Saline -) 1,000 mls @ 100 mls/hr IV ASDIR [facility] Last Admin: 09/29/17 19:54 Dose: Not Given Levetiracetam (Keppra Injection -) 500 mg IVPB BID [facility] Last Admin: 09/29/17 21:50 Dose: 500 mg Metoprolol Tartrate (Lopressor Injection -) 5 mg IVPUSH Q4H [facility] Last Admin: 09/30/17 06:05 Dose: Not Given Pantoprazole Sodium (Protonix Iv) 40 mg IVPUSH BID [facility] Last Admin: 09/29/17 21:50 Dose: 40 mg - Objective Vital Signs: Vital Signs Temperature 98.6 F 09/30/17 05:47 Pulse Rate 80 09/30/17 05:47 Respiratory Rate 20 09/30/17 05:47 Blood Pressure 103/63 09/30/17 05:47 O2 Sat by Pulse Oximetry (%) 97 09/29/17 21:00 Constitutional: Yes: No Distress, Calm Neck: Yes: Supple Cardiovascular: Yes: Regular Rate and Rhythm Respiratory: Yes: Regular, CTA Bilaterally Gastrointestinal: Yes: Soft, Hypoactive Bowel Sounds Edema: No Labs: CBC, BMP 09/29/17 15:15 09/29/17 05:30 INR, PTT INR 1.27 (0.82-1.09) H 09/28/17 16:20 Problem List - Problems (1) Duodenal mass Code(s): K31.89 - OTHER DISEASES OF STOMACH AND DUODENUM (2) Anemia Code(s): D64.9 - ANEMIA, UNSPECIFIED Qualifiers: Anemia type: other cause Other causes of anemia: other cause, not classified Qualified Code(s): D64.89 - Other specified anemias (3) Acute blood loss anemia Code(s): D62 - ACUTE POSTHEMORRHAGIC ANEMIA (4) Atrial fibrillation Code(s): I48.91 - UNSPECIFIED ATRIAL FIBRILLATION Qualifiers: Atrial fibrillation type: persistent Qualified Code(s): I48.1 - Persistent atrial fibrillation (5) Demand ischemia Code(s): I24.8 - OTHER FORMS OF ACUTE ISCHEMIC HEART DISEASE (6) Diastolic dysfunction without heart failure Code(s): I51.89 - OTHER ILL-DEFINED HEART DISEASES (7) History of heart valve repair Code(s): Z98.890 - OTHER SPECIFIED POSTPROCEDURAL STATES (8) History of prosthetic aortic valve Code(s): Z95.2 - PRESENCE OF PROSTHETIC HEART VALVE (9) Old cerebrovascular accident without late effect Code(s): Z86.73 - PRSNL HX OF TIA (TIA), AND CEREB INFRC W/O RESID DEFICITS (10) Pacemaker Code(s): Z95.0 - PRESENCE OF CARDIAC PACEMAKER (11) Thoracic aortic aneurysm Code(s): I71.2 - THORACIC AORTIC ANEURYSM, WITHOUT RUPTURE Qualifiers: Presence of rupture: without rupture Qualified Code(s): I71.2 - Thoracic aortic aneurysm, without rupture (12) Lymphoma Code(s): C85.90 - NON-HODGKIN LYMPHOMA, UNSPECIFIED, UNSPECIFIED SITE Qualifiers: Lymphoma type: non-Hodgkin Non-Hodgkin lymphoma type: follicular Follicular lymphoma grade: grade II Lymphoma site: lower extremity Qualified Code(s): C82.15 - Follicular lymphoma grade II, lymph nodes of inguinal region and lower limb Assessment/Plan 1. GI bleed, anemia, referable to fungating duodenal mass in the 2nd portion of the duodenum 2. Permanent AF currently off anticoagulation due to above, [id number] score probably 2 3. HTN 4. Hypercholesterolemia 5. AVR (bioprosthesis) with total aortic arch replacement, history of endocarditis 6. COPD 7. SSS s/p PPM 8. Follicular lymphoma s/p chemotherapy PLAN: 1. Transfuse PRBC and follow CBC closely, resume soft diet as tolerated per GI, oral PPI bid 2. Await transfer to GI service at [facility] 3. GI input from [facility] appreciaated 4. Patient understands the stroke risk off anticoagulation. Eventually will need to be resumed on NOAC once hemostasis assured 5. Consideration for Watchman/AGUEDA occlusion device but will need to take anticoagulation immediately post device insertion, therefore; will have to wait until he is cleared 6. Resume oral Metoprolol XL 25 qd and Lipitor 40 qhs Primary mushroom spawn maker: Alexis Wallace MD of [facility]
[2017-09-30] MEDS ORDERED: metoPROLOL SUCCINATE 25 MG TAB.SR.24H (FP) PO SCH (10:45)
--- NOTE | 2017-09-30 11:37 | PN ---
Progress Note (short form) - Note Progress Note: PATIENT SEEN AND EXAMINED NO ACUTE DISTRESS ON CLEAR DIET AWAITING TRANSFER BACK TO [facility] FOR GI BLEED PATIENT WAS THERE 1 WEEK AGO FOR DUEDONAL BLEED PPI BID CBC DAILY CLEAR DIET
[2017-09-30] MEDS: PANTOPRAZOLE SODIUM 40 MG VIAL IVPUSH SCH (11:55)
[2017-09-30] MEDS: levETIRAcetam 500 MG/5 ML INJECTION VIAL IVPB SCH (11:55)
[2017-09-30] MEDS: PANTOPRAZOLE 40 MG TABLET (FP) PO SCH ×2 (11:59→21:10)
[2017-09-30] MEDS: levETIRAcetam 500 MG TABLET (FP) PO SCH ×2 (12:00→21:10)
--- NOTE | 2017-09-30 15:45 | PN ---
Progress Note, Physician History of Present Illness: C/o diarrhea, hemaochezia this am. No changes in VS. - Current Medication List Current Medications: Active Medications Albuterol/Ipratropium (Duoneb -) 1 amp NEB Q6H PRN PRN Reason: SHORTNESS OF BREATH Last Admin: 09/29/17 20:35 Dose: 1 amp Atorvastatin Calcium (Lipitor -) 40 mg PO [facility] Sodium Chloride (Normal Saline -) 1,000 mls @ 100 mls/hr IV ASDIR [facility] Last Admin: 09/29/17 19:54 Dose: Not Given Levetiracetam (Keppra -) 500 mg PO BID [facility] Last Admin: 09/30/17 12:00 Dose: 500 mg Metoprolol Succinate (Toprol Xl -) 25 mg PO DAILY [facility] Last Admin: 09/30/17 12:00 Dose: 25 mg Pantoprazole Sodium (Protonix -) 40 mg PO BID [facility] Last Admin: 09/30/17 11:59 Dose: 40 mg - Objective Vital Signs: Vital Signs Temperature 98.2 F 09/30/17 13:31 Pulse Rate 80 09/30/17 13:31 Respiratory Rate 16 09/30/17 13:31 Blood Pressure 117/56 09/30/17 13:31 O2 Sat by Pulse Oximetry (%) 97 09/29/17 21:00 Constitutional: Yes: No Distress, Calm Eyes: Yes: Conjunctiva Clear HENT: Yes: Atraumatic Neck: Yes: Supple Cardiovascular: No: Bradycardia, Tachycardia Respiratory: Yes: Regular Gastrointestinal: Yes: Normal Bowel Sounds, Soft. No: Abdomen, Obese, Ascites, Distention, Rectal Bleeding, Tenderness, Tenderness, Epigastrium, Tenderness, Rebound, Vomiting Neurological: Yes: Alert, Oriented Labs: CBC, BMP 09/29/17 15:15 09/29/17 05:30 INR, PTT INR 1.27 (0.82-1.09) H 09/28/17 16:20 Laboratory Last Values WBC 13.0 K/mm3 (4.0-10.0) H 09/29/17 15:15 RBC 2.99 M/mm3 (4.00-5.60) L 09/29/17 15:15 Hgb 8.5 GM/dL (11.7-16.9) L 09/29/17 15:15 Hct 26.7 % (35.4-49) L 09/29/17 15:15 MCV 89.1 fl (80-96) 09/29/17 15:15 MCH 28.3 pg (25.7-33.7) 09/29/17 15:15 MCHC 31.8 g/dl (32.0-35.9) L 09/29/17 15:15 RDW 17.8 % (11.9-15.9) H 09/29/17 15:15 Plt Count 220 K/MM3 (134-434) 09/29/17 15:15 MPV 9.4 fl (7.5-11.1) 09/29/17 15:15 Absolute Neuts (auto) 11.3 # 09/29/17 15:15 Neutrophils % 87.0 % (42.8-82.8) H 09/29/17 15:15 Lymphocytes % 5.2 % (8-40) L D 09/29/17 15:15 Monocytes % 6.8 % (3.8-10.2) 09/29/17 15:15 Eosinophils % 0.4 % (0-4.5) 09/29/17 15:15 Basophils % 0.6 % (0-2.0) 09/29/17 15:15 Nucleated RBC % 0 % (0-0) 09/29/17 15:15 PT with INR 14.30 SEC (9.7-13.0) H 09/28/17 16:20 INR 1.27 (0.82-1.09) H 09/28/17 16:20 Sodium 148 mmol/L (136-145) H 09/29/17 05:30 Potassium 4.1 mmol/L (3.5-5.1) 09/29/17 05:30 Chloride 113 mmol/L (98-107) H 09/29/17 05:30 Carbon Dioxide 27 mmol/L (21-32) 09/29/17 05:30 Anion Gap 8 (8-16) 09/29/17 05:30 BUN 38 mg/dL (7-18) H 09/29/17 05:30 Creatinine 1.0 mg/dL (0.7-1.3) 09/29/17 05:30 Creat Clearance w eGFR > 60 (>60) 09/29/17 05:30 Random Glucose 99 mg/dL (74-106) 09/29/17 05:30 Calcium 8.4 mg/dL (8.5-10.1) L 09/29/17 05:30 Magnesium 1.7 mg/dL (1.8-2.4) L 09/29/17 05:30 Total Bilirubin 0.4 mg/dL (0.2-1.0) 09/28/17 16:20 AST 8 U/L (15-37) L D 09/28/17 16:20 ALT 15 U/L (12-78) D 09/28/17 16:20 Alkaline Phosphatase 97 U/L (45-117) D 09/28/17 16:20 Troponin I 0.13 ng/ml (0.00-0.05) H 09/29/17 05:30 Total Protein 6.0 g/dl (6.4-8.2) L 09/28/17 16:20 Albumin 3.3 g/dl (3.4-5.0) L 09/28/17 16:20 Triglycerides 143 mg/dL (35-160) D 09/29/17 05:30 Cholesterol 97 mg/dL (50-200) D 09/29/17 05:30 Total LDL Cholesterol 42 mg/dL (5-100) D 09/29/17 05:30 HDL Cholesterol 37 mg/dL (40-60) L D 09/29/17 05:30 Stool Occult Blood Positive (NEGATIVE) 09/28/17 15:53 Blood Type A POSITIVE 09/28/17 16:20 Antibody Screen Negative 09/28/17 16:20 Crossmatch See Detail 09/28/17 16:20 Problem List - Problems (1) Duodenal ulcer Code(s): K26.9 - DUODENAL ULCER, UNSP ACUTE OR CHRONIC, W/O HEMOR OR PERF (2) Duodenal ulcer Code(s): K26.9 - DUODENAL ULCER, UNSP ACUTE OR CHRONIC, W/O HEMOR OR PERF Assessment/Plan PPI PO bid Daily CBC - ordered this PM Close monitoring of VS and for signs of bleeding Discussed with the patient
[2017-09-30 17:09] LABS: EOS % 1.1 % (0-4.5); HEMATOCRIT 24.5 % (35.4-49); LYMPH % 5.6 % (8-40); MCH 29.1 pg (25.7-33.7); MCHC 32.5 g/dl (32.0-35.9); MEAN CELL VOLUME 89.4 fl (80-96); MEAN PLT VOLUME 9.2 fl (7.5-11.1); MONO % 10.1 % (3.8-10.2); NEUT % 82.2 % (42.8-82.8); PLATELET COUNT 207 K/MM3 (134-434); RBC 2.74 M/mm3 (4.00-5.60); RDW 17.5 % (11.9-15.9); WHITE BLOOD COUNT 9.1 K/mm3 (4.0-10.0)
[2017-09-30] MEDS ORDERED: ATORVASTATIN CA 40 MG TABLET (FP) PO SCH (22:00)
[2017-09-30 23:15] VITALS: BP 96/59; PULSE 80; TEMP 98.4
--- NOTE | 2017-10-02 14:34 | PN ---
Progress Note, Physician - Objective Vital Signs: Vital Signs Temperature 98.4 F 09/30/17 22:00 Pulse Rate 80 09/30/17 22:00 Respiratory Rate 20 09/30/17 22:00 Blood Pressure 96/59 09/30/17 22:00 O2 Sat by Pulse Oximetry (%) 97 09/30/17 21:00 Labs: CBC, BMP 09/30/17 16:00 09/29/17 05:30 INR, PTT INR 1.27 (0.82-1.09) H 09/28/17 16:20
== END 2017-09-30 23:46 | disposition short-term general hospital (02) ==
LOC: JER 14:47 → JERBED 17:57 → J4S 22:47
PROVIDERS: ADMIT Internal Medicine; ATTEND Family Medicine
PROC: 3E033GC Introduction of Other Therapeutic Substance into Peripheral Vein, Percutaneous Approach (ICD-10-PCS; principal; 2017-09-28)
PROC: 3E0F7GC Introduction of Other Therapeutic Substance into Respiratory Tract, Via Natural or Artificial Opening (ICD-10-PCS; 2017-09-28)
DX: D62 Acute posthemorrhagic anemia (principal); K92.1 Melena; K92.2 Gastrointestinal hemorrhage, unspecified; D64.89 Other specified anemias; I11.0 Hypertensive heart disease with heart failure; E78.5 Hyperlipidemia, unspecified; I48.1 Persistent atrial fibrillation; C82.15 Follicular lymphoma grade II, lymph nodes of inguinal region and lower limb; I50.9 Heart failure, unspecified; Z86.73 Personal history of transient ischemic attack (TIA), and cerebral infarction without residual deficits; Z92.21 Personal history of antineoplastic chemotherapy; Z95.4 Presence of other heart-valve replacement; Z95.0 Presence of cardiac pacemaker; Z87.891 Personal history of nicotine dependence
CPT/HCPCS: 36415; 36430; 71046-TC-FY; 80048; 80053; 80061; 82272; 83721; 83735; 84484; 85025; 85027; 85610; 86850; 86900; 86901; 86922; 87040; 87086; 87186; 93005; 93010; 94640; 96374; 99284-25; G0378; J7030; J7620; P9012; P9017; P9038; P9058

== ENCOUNTER 2017-10-19 15:58 | Emergency (ER) | payer OTHER ==
[2017-10-19 16:22] VITALS: BMI 29.8
--- NOTE | 2017-10-19 19:00 | PDOC ---
History of Present Illness - General Chief Complaint: Rectal Bleed Stated Complaint: RECTAL BLEED (GI HEMORRAGE) History Source: Patient Past History - Past Medical History Allergies/Adverse Reactions: Allergies Allergy/AdvReac Type Severity Reaction Status Date / Time No Known Drug Allergies Allergy Verified 09/28/17 14:57 Home Medications: Ambulatory Orders Atorvastatin Ca [Lipitor] 40 mg PO HS 01/12/17 levETIRAcetam [Keppra -] 500 mg PO BID tablet 02/24/17 Mirabegron [Myrbetriq] 25 mg PO DAILY 08/07/17 Albuterol 2.5/Ipratropium 0.5 [Duoneb -] 1 amp NEB Q4H PRN amp 09/02/17 Metoprolol Succinate [Toprol XL -] 25 mg PO DAILY tab.sr.24h 09/02/17 Pantoprazole Sodium [Protonix IV] 80 mg IVPB Q10H vial 09/24/17 Albuterol 2.5/Ipratropium 0.5 [Duoneb -] 1 amp NEB Q6H PRN amp 09/29/17 Pantoprazole Sodium [Protonix IV] 40 mg IVPUSH BID #0 vial 09/29/17 levETIRAcetam INJECTION [Keppra Injection -] 500 mg IVPB BID ml 09/29/17 Anemia: Yes Asthma: No Cancer: Yes (LYMPHOMA, chemo 3 weeks ago) Cardiac Disorders: Yes (AORTIC VALVE REPLACEMENT, TRANSVERSE ARCH GRAFT) CVA: Yes (06/2015) COPD: Yes (ABESTOSIS) CHF: Yes DVT: No Dementia: No Diabetes: No GI Disorders: Yes (HIATAL HERNIA, bleeding ulcer, EGD, GIB, Melena, tumor biopsy ) Disorders: No HTN: Yes Hypercholesterolemia: Yes Liver Disease: No Seizures: No Thyroid Disease: No - Surgical History Abdominal Surgery: No Appendectomy: No Cardiac Surgery: Yes (PACEMAKER; VALVE REPLACEMENT,TRANSVERSE ARCH GRAFT) Cholecystectomy: No Lung Surgery: No Neurologic Surgery: No Orthopedic Surgery: No - Immunization History Immunization Up to Date: Yes - Suicide/Smoking/Psychosocial Hx Smoking Status: No Smoking History: Former smoker Have you smoked in the past 12 months: No Number of Cigarettes Smoked Daily: 10 If you are a former smoker, when did you quit?: 1982 Cigars Per Day: 1 Information on smoking cessation initiated: No 'Breaking Loose' booklet given: 08/16/14 Hx Alcohol Use: No Drug/Substance Use Hx: No Substance Use Type: None Hx Substance Use Treatment: No *Physical Exam - Vital Signs Last Vital Signs Temp Pulse Resp BP Pulse Ox 98.4 F 80 18 123/52 100 10/19/17 16:20 10/19/17 16:20 10/19/17 16:20 10/19/17 16:20 10/19/17 16:20 *DC/Admit/Observation/Transfer - Referrals Referrals: Viridiana Monet MD [Primary Care Provider] - - Patient Instructions - Post Discharge Activity
--- NOTE | 2017-10-19 19:25 | PDOC ---
History of Present Illness <CamposNori Sumi - Last Filed: 10/19/17 19:33> - General History Source: Patient - History of Present Illness Initial Comments: 10/19/17 19:25 67 year old male with a PMH of lymphoma (last chemo 1 month previous) AFib ( Eliquis being held 2/2 to repeated GI bleed), CVA, COPD, Lymphoma (last chemo on month previous), seizure disorder (on Keppra - cannot recall date of last seizure), chronic GI bleed presents to the ED today after an episode of black stool. Patient notes he was recently evaluated at [facility] with an endoscopy that showed duodenal ulcer. Patient denies any chest pain, shortness of breath, abdominal pain. Patient denies nausea/vomiting, diarrhea/constipation. Patient denies dysuria/hematuria, increased urgency/frequency. NKDA Surgical: Pacemaker, valve replacement Social: (+) nicotine, denies alcohol, denies recreational drugs PMD: Dr. Monet <Anny Alfaro - Last Filed: 10/20/17 03:01> - General Chief Complaint: Rectal Bleed Stated Complaint: RECTAL BLEED (GI HEMORRAGE) Time Seen by Provider: 10/19/17 19:07 Past History <CamposNorialexa Jonas - Last Filed: 10/19/17 19:33> - Past Medical History Anemia: Yes Asthma: No Cancer: Yes (LYMPHOMA, chemo 3 weeks ago) Cardiac Disorders: Yes (AORTIC VALVE REPLACEMENT, TRANSVERSE ARCH GRAFT) CVA: Yes (06/2015) COPD: Yes (ABESTOSIS) CHF: Yes DVT: No Dementia: No Diabetes: No GI Disorders: Yes (HIATAL HERNIA, bleeding ulcer, EGD, GIB, Melena, tumor biopsy ) Disorders: No HTN: Yes Hypercholesterolemia: Yes Liver Disease: No Seizures: No Thyroid Disease: No - Surgical History Abdominal Surgery: No Appendectomy: No Cardiac Surgery: Yes (PACEMAKER; VALVE REPLACEMENT,TRANSVERSE ARCH GRAFT) Cholecystectomy: No Lung Surgery: No Neurologic Surgery: No Orthopedic Surgery: No - Immunization History Immunization Up to Date: Yes - Suicide/Smoking/Psychosocial Hx Smoking Status: No Smoking History: Former smoker Have you smoked in the past 12 months: No Number of Cigarettes Smoked Daily: 10 If you are a former smoker, when did you quit?: 1982 Cigars Per Day: 1 Information on smoking cessation initiated: No 'Breaking Loose' booklet given: 08/16/14 Hx Alcohol Use: No Drug/Substance Use Hx: No Substance Use Type: None Hx Substance Use Treatment: No <Anny Alfaro - Last Filed: 10/20/17 03:01> - Past Medical History Allergies/Adverse Reactions: Allergies Allergy/AdvReac Type Severity Reaction Status Date / Time No Known Drug Allergies Allergy Verified 09/28/17 14:57 Home Medications: Ambulatory Orders Atorvastatin Ca [Lipitor] 40 mg PO HS 01/12/17 levETIRAcetam [Keppra -] 500 mg PO BID tablet 02/24/17 Mirabegron [Myrbetriq] 25 mg PO DAILY 08/07/17 Albuterol 2.5/Ipratropium 0.5 [Duoneb -] 1 amp NEB Q4H PRN amp 09/02/17 Metoprolol Succinate [Toprol XL -] 25 mg PO DAILY tab.sr.24h 09/02/17 Pantoprazole Sodium [Protonix IV] 80 mg IVPB Q10H vial 09/24/17 Albuterol 2.5/Ipratropium 0.5 [Duoneb -] 1 amp NEB Q6H PRN amp 09/29/17 Pantoprazole Sodium [Protonix IV] 40 mg IVPUSH BID #0 vial 09/29/17 levETIRAcetam INJECTION [Keppra Injection -] 500 mg IVPB BID ml 09/29/17 Review of Systems - Review of Systems Constitutional: No: Chills, Fever HEENTM: No: Blurred Vision, Double Vision Respiratory: No: Shortness of Breath, Stridor, Wheezing, Hemoptysis Cardiac (ROS): No: Chest Pain, Lightheadedness, Palpitations, Syncope ABD/GI: Yes: Tarry Stools. No: Constipated, Diarrhea, Nausea : No: Burning, Dysuria <Anny Alfaro - Last Filed: 10/20/17 03:01> *Physical Exam - Vital Signs Last Vital Signs Temp Pulse Resp BP Pulse Ox 98.4 F 80 18 123/52 100 10/19/17 16:20 10/19/17 16:20 10/19/17 16:20 10/19/17 16:20 10/19/17 16:20 <Nori Gasca - Last Filed: 10/19/17 19:33> - Vital Signs Last Vital Signs Temp Pulse Resp BP Pulse Ox 98.4 F 80 18 123/52 100 10/19/17 16:20 10/19/17 16:20 10/19/17 16:20 10/19/17 16:20 10/19/17 16:20 - Physical Exam General Appearance: Yes: Thin Neck: positive: Trachea midline, Supple Respiratory/Chest: positive: Lungs Clear, Normal Breath Sounds Gastrointestinal/Abdominal: positive: Soft. negative: Distended, Guarding, Tenderness, Hernia, Mass Rectal Exam: positive: normal rectal tone, heme positive stool Musculoskeletal: negative: CVA Tenderness (R), CVA Tenderness (L) Extremity: positive: Normal Inspection, Normal Range of Motion Integumentary: positive: Normal Color, Dry, Warm Neurologic: positive: Fully Oriented, Alert <Anny Alfaro - Last Filed: 10/20/17 03:01> ED Treatment Course - LABORATORY CBC & Chemistry Diagram: 10/19/17 21:06 10/19/17 21:06 <Anny Alfaro - Last Filed: 10/20/17 03:01> Medical Decision Making - Medical Decision Making 10/19/17 22:08 67 year old male presents with rectal bleed. H/o chronic GI bleed likely 2/2 to non-healing duodenal ulcer. Will check labs and tranfuse as indicated. Case d/w Dr. Monet, agrees with transfer to [facility] where patient follows with oncology and GI pending stable Hb. CBC pending. 10/19/17 22:11 FOBT (+) Hb 7.1, patient consents to transfusion and transfer. 10/19/17 22:28 Contacted [facility] transfer center 10/19/17 22:44 Case d/w Dr. Marcos Perez of [facility] @ [facility], agrees with transfer. Will arrange for ED-ED transfer. 10/19/17 22:57 Case d/w Dr. Herman (ED @ [facility]) accepts for transfer. Will arrange for transfer pending transfusion completion. Patient resting comfortably, counseled on POC. 10/20/17 02:52 Patient s/p 1 unit PRBC Patient transferred to [facility]. <Anny Alfaro - Last Filed: 10/20/17 03:01> *DC/Admit/Observation/Transfer <Nori Gasca - Last Filed: 10/19/17 19:33> - Discharge Dispostion Decision to Admit order: No <Anny Alfaro - Last Filed: 10/20/17 03:01> Diagnosis at time of Disposition: Tarry stool - Discharge Dispostion Disposition: TRANSFER ACUTE CARE/OTHER HOSP Condition at time of disposition: Fair - Referrals Referrals: Viridiana Monet MD [Primary Care Provider] - - Patient Instructions - Post Discharge Activity
--- NOTE | 2017-10-19 19:47 | PDOC ---
Attending Attestation - Resident Resident Name: Anny Alfaro - ED Attending Attestation I have performed the following: I have examined & evaluated the patient, The case was reviewed & discussed with the resident, I agree w/resident's findings & plan, Exceptions are as noted - HPI HPI: 10/19/17 19:45 67-year-old male with a history of GI bleeds was discharged from [facility] 2 weeks ago after being treated for GI bleed. Currently undergoing chemotherapy for lymphoma - Physicial Exam PE: 10/20/17 02:20 tall 67 yo male p/w Gi bleed head normocephalic, atraumatic Neck no cervical vertebral tenderness. Lungs no wheezing, no crackles. CVS regular rate and rhythm. Abdomen. No rebound. Extremities moving all extremities. Neuro alert and oriented 3 - Medical Decision Making 10/19/17 19:48 Vital signs are stable. I spoke with Nara his , PCP Dr. Monet stated if hemoglobin and hematocrit are stable he could be discharged home 10/19/17 22:01 hbg=7.1 therefore has t be transfused and tranferred to [facility] 10/19/17 23:02 Accept ED physician at [facility] is Dr. Jose Perez, the head of lymphoma services will be expecting him at [facility]
[2017-10-19 21:23] LABS: BASO % 0.7 % (0-2.0); EOS % 0.4 % (0-4.5); HEMATOCRIT 21.7 % (35.4-49); HEMOGLOBIN 7.1 GM/dL (11.7-16.9); LYMPH % 6.4 % (8-40); MCHC 32.7 g/dl (32.0-35.9); MEAN CELL VOLUME 85.9 fl (80-96); MEAN PLT VOLUME 7.8 fl (7.5-11.1); MONO % 7.4 % (3.8-10.2); NEUT % 85.1 % (42.8-82.8); PLATELET COUNT 170 K/MM3 (134-434); RBC 2.53 M/mm3 (4.00-5.60); RDW 19.6 % (11.9-15.9); WHITE BLOOD COUNT 8.4 K/mm3 (4.0-10.0)
[2017-10-19 21:33] LABS: INR 1.19 (0.83-1.09); PROTHROMBIN TIME (PATIENT) 13.4 SEC (9.7-13.0)
[2017-10-19 21:36] LABS: ACTIVATED PTT 49.7 SECONDS (25.2-36.5)
[2017-10-19 21:54] LABS: ALBUMIN 2.9 g/dl (3.4-5.0); ALK PHOS 70 U/L (45-117); ANION GAP 9 (8-16); BILIRUBIN,TOTAL 0.2 mg/dL (0.2-1.0); BLOOD UREA NITROGEN 45 mg/dL (7-18); CALCIUM 8.8 mg/dL (8.5-10.1); CHLORIDE 116 mmol/L (98-107); CO2 23 mmol/L (21-32); CREATININE 1.4 mg/dL (0.7-1.3); GLUCOSE,RANDOM 108 mg/dL (74-106); SGOT/AST 12 U/L (15-37); SGPT/ALT 12 U/L (12-78); SODIUM 148 mmol/L (136-145); TOT PROT 5.7 g/dl (6.4-8.2)
[2017-10-20 04:45] VITALS: TEMP 98.2
[2017-10-20 04:48] VITALS: BP 126/78; PULSE 96
== END 2017-10-20 03:41 | disposition short-term general hospital (02) ==
LOC: JER 15:58
DX: K92.1 Melena (principal); I10 Essential (primary) hypertension; E78.00 Pure hypercholesterolemia, unspecified; I50.9 Heart failure, unspecified; J61 Pneumoconiosis due to asbestos and other mineral fibers; Z87.891 Personal history of nicotine dependence
CPT/HCPCS: 36415; 36430; 80053; 82272; 85025; 85610; 85730; 86850; 86900; 86901; 86922; 99284-25; P9038; P9058

== ENCOUNTER 2017-11-10 14:51 | Inpatient (IN) | payer OTHER ==
--- NOTE | 2017-11-10 15:06 | PDOC ---
Rapid Medical Evaluation Time Seen by Provider: 11/10/17 14:59 Medical Evaluation: Allergies Allergy/AdvReac Type Severity Reaction Status Date / Time No Known Drug Allergies Allergy Verified 09/28/17 14:57 11/10/17 15:00 Pt presents to the ED for left sided weakness since last night. States that he was supposed to go to [facility] for rehab. Pt was just discharged from [facility] with a picc line after having an infected port site. Pt with Lymphoma. Exam: Pt able to lift both L leg and arm, in wheel chair Orders: Labs, CXR, IV insert, EKG, Head CT Pt to proceed to ED for further evaluation Discharge Disposition - Diagnosis Weakness - Referrals - Patient Instructions - Post Discharge Activity
--- NOTE | 2017-11-10 16:10 | PDOC ---
History of Present Illness - General Chief Complaint: Weakness Stated Complaint: LEFT SIDE WEAKNESS Time Seen by Provider: 11/10/17 14:59 History Source: Patient - History of Present Illness Associated Symptoms: reports: weakness. denies: chest pain, cough, diaphoresis , fever/chills, headaches, nausea/vomiting, shortness of breath Past History - Past Medical History Allergies/Adverse Reactions: Allergies Allergy/AdvReac Type Severity Reaction Status Date / Time No Known Drug Allergies Allergy Verified 09/28/17 14:57 Home Medications: Ambulatory Orders Atorvastatin Ca [Lipitor] 40 mg PO HS 01/12/17 levETIRAcetam [Keppra -] 500 mg PO BID tablet 02/24/17 Mirabegron [Myrbetriq] 25 mg PO DAILY 08/07/17 Albuterol 2.5/Ipratropium 0.5 [Duoneb -] 1 amp NEB Q4H PRN amp 09/02/17 Metoprolol Succinate [Toprol XL -] 25 mg PO DAILY tab.sr.24h 09/02/17 Pantoprazole Sodium [Protonix IV] 80 mg IVPB Q10H vial 09/24/17 Albuterol 2.5/Ipratropium 0.5 [Duoneb -] 1 amp NEB Q6H PRN amp 09/29/17 Pantoprazole Sodium [Protonix IV] 40 mg IVPUSH BID #0 vial 09/29/17 levETIRAcetam INJECTION [Keppra Injection -] 500 mg IVPB BID ml 09/29/17 Anemia: Yes Asthma: No Cancer: Yes (LYMPHOMA, chemo) Cardiac Disorders: Yes (AORTIC VALVE REPLACEMENT, TRANSVERSE ARCH GRAFT) CVA: Yes (06/2015) COPD: Yes (ABESTOSIS) CHF: Yes DVT: No Dementia: No Diabetes: No GI Disorders: Yes (HIATAL HERNIA, bleeding ulcer, EGD, GIB, Melena, tumor biopsy ) Disorders: No HTN: Yes Hypercholesterolemia: Yes Liver Disease: No Seizures: No Thyroid Disease: No - Surgical History Abdominal Surgery: No Appendectomy: No Cardiac Surgery: Yes (PACEMAKER; VALVE REPLACEMENT,TRANSVERSE ARCH GRAFT) Cholecystectomy: No Lung Surgery: No Neurologic Surgery: No Orthopedic Surgery: No - Immunization History Immunization Up to Date: Yes - Suicide/Smoking/Psychosocial Hx Smoking Status: No Smoking History: Former smoker Have you smoked in the past 12 months: No Number of Cigarettes Smoked Daily: 10 If you are a former smoker, when did you quit?: 1982 Cigars Per Day: 1 Information on smoking cessation initiated: No 'Breaking Loose' booklet given: 08/16/14 Hx Alcohol Use: No Drug/Substance Use Hx: No Substance Use Type: None Hx Substance Use Treatment: No Review of Systems - Review of Systems Constitutional: No: Chills, Fever Respiratory: No: Cough, Shortness of Breath Cardiac (ROS): No: Chest Pain ABD/GI: No: Blood Streaked Bowels, Diarrhea, Nausea, Rectal Bleeding, Vomiting, Abdominal cramping, Tarry Stools : No: Dysuria Neurological: Yes: Weakness. No: Headache, Tingling *Physical Exam - Vital Signs Last Vital Signs Temp Pulse Resp BP Pulse Ox 98.8 F 80 18 101/65 100 11/10/17 15:00 11/10/17 15:00 11/10/17 15:00 11/10/17 15:00 11/10/17 15:00 - Physical Exam General Appearance: Yes: Appropriately Dressed. No: Apparent Distress HEENT: positive: Normal Voice Neck: positive: Supple Respiratory/Chest: positive: Lungs Clear, Normal Breath Sounds. negative: Respiratory Distress Cardiovascular: positive: Regular Rate, S1, S2 Gastrointestinal/Abdominal: positive: Soft. negative: Tender Musculoskeletal: negative: CVA Tenderness Extremity: positive: Other (well appering PICC site to RUE) Integumentary: positive: Dry, Warm Neurologic: positive: Fully Oriented, Alert, Normal Mood/Affect (No nystagmus, Ghazal intact, 3+ strength on the L compared to 5/5 on the R w/ some effort against gravity w/ LLE, unable to ambulate in ED), Finger to Nose. negative: Facial Droop, Sensory Deficit, Confused, Disoriented Medical Decision Making - Medical Decision Making 11/10/17 16:12 67-year-old male currently on chemotherapy for lymphoma, A.fib (Eliquis currently being held 2/2 recurrent GIB), PUD,, CVA with left-sided deficit, COPD , seizure disorder here with left lower extremity weakness. Patient states he was discharged from [facility] yesterday after being admitted for 3 weeks for GI bleed. States he was transfused during admission. Patient states he also was found to have infected port site and has since had port removed and now has RUE PICC in place. The patient states he was transported back home via EMS around 5:30 pm yesterday evening and states since then, has not been able to walk 2/2 LUE weakness per pt. [facility] neighbors had to physically put him in bed last night and that he continues to be unable to bear weight today so decided to come in. States since his stroke, he has numbness/tingling and some weakness to left leg, but never this severe, and was able to walk with his cane or ambulate unassisted following his prior CVA. Patient says that when he was discharged from [facility] yesterday, he had requested to go to to [facility] but for unclear reasons was discharged to his home. No acute weakness to LUE and no headache, dizziness, blurry vision, slurred speech, nausea or vomiting. No other acute complaints at this time See exam LLE weakness yesterday and unable to bear weight Worse than baseline deficit, s/p CVA 2 years ago w/ some L sided deficit No longer on eliquis 2/2 recurrent GIB Neuro remarkable for decreased strength on the L and unable to stand/ambulate in ED -CT head -labs -neuro consult -anticipate admission 11/10/17 16:32 11/10/17 17:03 CT head unchanged from CT 2016 w/ large chronic R temporoparietal cortical infarct seen, no acute infarcts or masses per radiology report. Labs pending. Will contact PMD to arrange admission at this time 11/10/17 18:[address] Dubon who wants patient admitted to obs under Dr Monet *DC/Admit/Observation/Transfer Diagnosis at time of Disposition: Unable to bear weight Leg weakness Qualifiers: Laterality: left Qualified Code(s): R29.898 - Other symptoms and signs involving the musculoskeletal system - Discharge Dispostion Condition at time of disposition: Fair Decision to Admit order: Yes - Referrals Referrals: Viridiana Monet MD [Primary Care Provider] - - Patient Instructions - Post Discharge Activity
[2017-11-10 19:14] LABS: BASO % 0.3 % (0-2.0); EOS % 0.2 % (0-4.5); HEMATOCRIT 23.3 % (35.4-49); HEMOGLOBIN 7.6 GM/dL (11.7-16.9); LYMPH % 3.1 % (8-40); MCH 27.7 pg (25.7-33.7); MCHC 32.4 g/dl (32.0-35.9); MEAN CELL VOLUME 85.6 fl (80-96); MEAN PLT VOLUME 7.9 fl (7.5-11.1); MONO % 0.3 % (3.8-10.2); NEUT % 96.1 % (42.8-82.8); PLATELET COUNT 175 K/MM3 (134-434); RBC 2.73 M/mm3 (4.00-5.60); RDW 18.7 % (11.9-15.9); WHITE BLOOD COUNT 3.7 K/mm3 (4.0-10.0)
[2017-11-10 19:39] LABS: INR 1.09 (0.83-1.09); PROTHROMBIN TIME (PATIENT) 12.3 SEC (9.7-13.0)
[2017-11-10 19:46] LABS: ANION GAP 8 MMOL/L (8-16); BILIRUBIN,TOTAL 0.6 mg/dL (0.2-1.0); BLOOD UREA NITROGEN 49 mg/dL (7-18); CALCIUM 8.8 mg/dL (8.5-10.1); CHLORIDE 109 mmol/L (98-107); CO2 27 mmol/L (21-32); CREATININE 0.8 mg/dL (0.7-1.3); GLUCOSE,RANDOM 87 mg/dL (74-106); MAGNESIUM 2.2 mg/dL (1.8-2.4); SGOT/AST 19 U/L (15-37); SGPT/ALT 24 U/L (12-78); SODIUM 144 mmol/L (136-145); TOT PROT 5.9 g/dl (6.4-8.2)
[2017-11-10 19:47] LABS: ALK PHOS 72 U/L (45-117)
--- NOTE | 2017-11-10 20:25 | HP ---
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 He is s/p d/c from [facility] yesterday. He was admitted here on 09/28 for GI bleed and was transferred to [place] for further treatment. He was evaluated by GI, IR and surgery who agreed there was no safe intervention and chemo was ultimately decided upon. He underwent EPOCH from 11/02-11/06. His hospitalization was complicated by Klebsiella bacteremia and PNA in the setting of neutropenia. His port was removed due to the bacteremia. A PICC line was placed in his right arm. His hemoglobin remained stable and was 8.4 upon DC. He is to receive filgrastim for 7 days until Thursday 11/16. He presented to our ED today because of weakness, especially in his left leg and difficulty walking. He is requesting SNF placement at [facility]. The weakness was so severe last night that his neighbors had to put him in bed. 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, follicular lymphoma, hiatal hernia, bleeding ulcer, chronic GI bleed, asbestosis, seizure disorder PAST SURGICAL HISTORY: tAVR, transverse arch graft PPM Social History: Smoking: smoked in his 20s Alcohol: social Drugs: pt denies Family History: mother age 82, h/o DM father age 98 brother age 77, [place] Allergies No Known Drug Allergies Allergy (Verified 09/28/17 14:57) HOME MEDICATIONS: 3 Medication Instructions Recorded Atorvastatin Ca [Lipitor] 40 mg PO HS 01/12/17 levETIRAcetam [Keppra -] 500 mg PO BID tablet 02/24/17 Albuterol Sulfate Inhaler - 2 inh PO QID PRN 11/10/17 [Ventolin Hfa Inhaler -] Amlodipine Besylate 2.5 mg PO DAILY 11/10/17 Filgrastim [Neupogen] 480 mcg SQ HS 11/10/17 Fluconazole [Diflucan -] 400 mg PO DAILY 11/10/17 Folic Acid 1 mg PO DAILY 11/10/17 Pantoprazole Sodium 40 mg PO DAILY 11/10/17 Sulfamethoxazole/Trimethoprim 1 tab PO ASDIR 11/10/17 [Bactrim Ds -] Thiamine HCl [B-1] 100 mg PO DAILY 11/10/17 Valacyclovir HCl [Valtrex] 500 mg PO Q12H 11/10/17 REVIEW OF SYSTEMS CONSTITUTIONAL: Present: generalized weakness Absent: fever, chills, diaphoresis, malaise, loss of appetite, weight change HEENT: Absent: rhinorrhea, nasal congestion, throat pain, throat swelling, difficulty swallowing, mouth swelling, ear pain, eye pain, visual changes CARDIOVASCULAR: Absent: chest pain, syncope, palpitations, irregular heart rate, lightheadedness , peripheral edema RESPIRATORY: Absent: cough, shortness of breath, dyspnea with exertion, orthopnea, wheezing, stridor, hemoptysis GASTROINTESTINAL: Absent: abdominal pain, abdominal distension, nausea, vomiting, diarrhea, constipation, melena, hematochezia GENITOURINARY: Absent: dysuria, frequency, urgency, hesitancy, hematuria, flank pain, genital pain MUSCULOSKELETAL: Absent: myalgia, arthralgia, joint swelling, back pain, neck pain SKIN: Absent: rash, itching, pallor HEMATOLOGIC/IMMUNOLOGIC: Absent: easy bleeding, easy bruising, lymphadenopathy, frequent infections ENDOCRINE: Absent: unexplained weight gain, unexplained weight loss, heat intolerance, cold intolerance NEUROLOGIC: Absent: headache, focal weakness or paresthesias, dizziness, unsteady gait, seizure, mental status changes, bladder or bowel incontinence PSYCHIATRIC: Absent: anxiety, depression, suicidal or homicidal ideation, hallucinations. PHYSICAL EXAMINATION Vital Signs - 24 hr 3 11/10/17 11/10/17 15:00 19:56 Temperature 98.8 F Pulse Rate 80 Pulse Rate [ 80 Right] Respiratory 18 20 Rate Blood Pressure 101/65 Blood Pressure 113/80 [Left Arm] O2 Sat by Pulse 100 100 Oximetry (%) GENERAL: Awake, alert, and fully oriented, in no acute distress. appears slightly pale HEAD: Normal with no signs of trauma. EYES: Pupils equal, round and reactive to light, extraocular movements intact, sclera anicteric, conjunctiva clear. No lid lag. EARS, NOSE, THROAT: Ears normal, nares patent, oropharynx clear without exudates. Moist mucous membranes. NECK: Normal range of motion, supple without lymphadenopathy, JVD, or masses. LUNGS: Breath sounds equal, clear to auscultation bilaterally. No wheezes, and no crackles. No accessory muscle use. HEART: Regular rate and rhythm, normal S1 and S2 without murmur, rub or gallop. ABDOMEN: Soft, nontender, not distended, normoactive bowel sounds, no guarding, no rebound, no masses. No hepatomegaly or splenomegaly. MUSCULOSKELETAL: Normal range of motion at all joints. No bony deformities or tenderness. No CVA tenderness. decreased strength LLE UPPER EXTREMITIES: 2+ pulses, warm, well-perfused. No cyanosis. No clubbing. No peripheral edema. LOWER EXTREMITIES: 2+ pulses, warm, well-perfused. No calf tenderness. No peripheral edema. NEUROLOGICAL: Cranial nerves II-XII intact. Normal speech. PSYCHIATRIC: Cooperative. Good eye contact. Appropriate mood and affect. SKIN: Warm, dry, normal turgor, no rashes or lesions noted, normal capillary refill. Laboratory Results - last 24 hr 3 11/10/17 11/10/17 11/10/17 19:00 19:00 19:00 WBC 3.7 L RBC 2.73 L Hgb 7.6 L Hct 23.3 L MCV 85.6 MCH 27.7 MCHC 32.4 RDW 18.7 H Plt Count 175 MPV 7.9 Absolute Neuts (auto) 3.6 Total Counted 100 Neutrophils % 96.1 H Neutrophils % (Manual) 97.0 H Band Neutrophils % 2.0 Lymphocytes % 3.1 L D Monocytes % 0.3 L D Eosinophils % 0.2 Eosinophils % (Manual) 1.0 D Basophils % 0.3 Nucleated RBC % 0 PT with INR 12.30 INR 1.09 Sodium 144 Potassium 4.0 Chloride 109 H Carbon Dioxide 27 Anion Gap 8 BUN 49 H Creatinine 0.8 Creat Clearance w eGFR > 60 Random Glucose 87 Lactic Acid 0.9 Calcium 8.8 Magnesium 2.2 D Total Bilirubin 0.6 AST 19 D ALT 24 D Alkaline Phosphatase 72 Creatine Kinase 20 L Troponin I 0.10 H Total Protein 5.9 L Albumin 3.0 L ECG ventricular paced rhythm vent rate 80 QTC 537 Radiology Reports CXR Impression : No acute chest pathology. New right line. 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 anemia secondary to chronic GI bleed - discussed with Dr. Espinosa. Recommends transfusing, target HCT >25 - repeat CBC one hour after PRBC - cont protonix po for now weakness - CT head without new CVA - ? due to anemia - PT consult for NH placement lymphoma - s/p EPOCH (without vincristine) 11/02-11/06 - needs filgristam x 7 days until thursday 11/16 - cont bactrim, valtrex, and diflucan for prophylaxis HTN/HLD - cont home meds norvasc and lipitor Afib - off anticoagulation due to GI bleed troponemia - troponin 0.10, h/o elevated trops in past, no intervention, will trend again in am. DVT PPX - held secondary to GI bleed FEN - hold IVF as pt will be receiving blood - bmp in am - low sodium diet as tolerated Dispo: pt currently requires further inpatient management of his emergent condition. Visit type - Emergency Visit Emergency Visit: Yes ED Registration Date: 11/10/17 Care time: The patient presented to the Emergency Department on the above date and was hospitalized for further evaluation of their emergent condition. - New Patient This patient is new to me today: Yes Date on this admission: 11/10/17 - Critical Care Critical Care patient: No Hospitalist Screening - Colonoscopy Questionnaire Colonoscopy Questionnaire: Colonoscopy Questionnaire - Patient: 50 - 75 years old and never had a screening colonoscopy: No History of colon or rectal polyps, or CA: No History of IBD, Crohn's disease or UC: No History of abdominal radiation therapy as a child: No - Relative: 1 with colon or rectal CA, or polyps at age 60 or younger: No Colon or rectal CA diagnosed at age 45 or younger: No Multiple relatives with colon or rectal CA: No - Outcome: Screening Result: Negative Screen
[2017-11-10] MEDS ORDERED: FILGRASTIM 480 MCG SQ SCH (22:00)
[2017-11-10] MEDS: TBO-FILGRASTIM 480 MCG/0.8 ML DISP.SYRIN SQ SCH (23:37)
[2017-11-10] MEDS: ATORVASTATIN CA 40 MG TABLET (FP) PO SCH (23:38)
[2017-11-10] MEDS: valACYclovir HCL 500 MG TABLET (FP) PO SCH (23:38)
[2017-11-10] MEDS: levETIRAcetam 500 MG TABLET (FP) PO SCH (23:38)
[2017-11-11 01:01] LABS: URINE APPEARANCE CLEAR; URINE BILIRUBIN NEGATIVE (<2.0 mg/dL); URINE COLOR LTYELLOW; URINE GLUCOSE (UA) NEGATIVE (NEGATIVE); URINE KETONE NEGATIVE (NEGATIVE); URINE LEUK ESTERASE NEGATIVE (NEGATIVE); URINE NITRITE NEGATIVE (NEGATIVE); URINE PROTEIN NEGATIVE (NEGATIVE); URINE UROBILINOGEN NEGATIVE mg/dL (0.2-1.0)
[2017-11-11 07:42] LABS: BASO % 0.1 % (0-2.0); EOS % 0.4 % (0-4.5); HEMATOCRIT 22.5 % (35.4-49); HEMOGLOBIN 7.4 GM/dL (11.7-16.9); MCH 27.6 pg (25.7-33.7); MCHC 32.9 g/dl (32.0-35.9); MEAN CELL VOLUME 83.6 fl (80-96); MONO % 0.8 % (3.8-10.2); NEUT % 95.7 % (42.8-82.8); PLATELET COUNT 128 K/MM3 (134-434); RBC 2.69 M/mm3 (4.00-5.60); RDW 17.9 % (11.9-15.9); WHITE BLOOD COUNT 2.5 K/mm3 (4.0-10.0)
[2017-11-11 07:44] LABS: INR 1.07 (0.83-1.09); PROTHROMBIN TIME (PATIENT) 12.1 SEC (9.7-13.0)
[2017-11-11 07:56] LABS: ANION GAP 9 MMOL/L (8-16); BLOOD UREA NITROGEN 40 mg/dL (7-18); CALCIUM 8.2 mg/dL (8.5-10.1); CHLORIDE 109 mmol/L (98-107); CO2 27 mmol/L (21-32); CREATININE 0.6 mg/dL (0.7-1.3); GLUCOSE,RANDOM 85 mg/dL (74-106); PHOSPHOROUS 3.3 mg/dL (2.5-4.9); POTASSIUM 3.7 mmol/L (3.5-5.1); SODIUM 145 mmol/L (136-145)
[2017-11-11] MEDS: FLUCONAZOLE 100 MG TABLET (UD) PO SCH (09:58)
[2017-11-11] MEDS: SULFAMETHOXAZOLE/TRIMETHOPRIM 800MG/160MG D.S. TABLET PO SCH (09:58)
[2017-11-11] MEDS: levETIRAcetam 500 MG TABLET (FP) PO SCH ×2 (09:59→22:03)
[2017-11-11] MEDS: amLODIPine BESYLATE 2.5 MG TABLET (FP) PO SCH (09:59)
[2017-11-11] MEDS: THIAMINE HCL 100 MG TABLET (FP) PO SCH (09:59)
[2017-11-11] MEDS: valACYclovir HCL 500 MG TABLET (FP) PO SCH ×2 (09:59→22:03)
[2017-11-11] MEDS: PANTOPRAZOLE 40 MG TABLET (FP) PO SCH (09:59)
[2017-11-11] MEDS: FOLIC ACID 1 MG TABLET (FP) PO SCH (09:59)
--- NOTE | 2017-11-11 10:48 | EKG ---
Test Reason : Blood Pressure : / mmHG Vent. Rate : 080 BPM Atrial Rate : 072 BPM P-R Int : 000 ms QRS Dur : 184 ms QT Int : 466 ms P-R-T Axes : 000 -22 085 degrees QTc Int : 537 ms Ventricular-paced rhythm ABNORMAL ECG WHEN COMPARED WITH ECG OF 28-SEP-2017 17:31, NO SIGNIFICANT CHANGE WAS FOUND Confirmed by NURIA MELENDEZ MD ([id number]) on 11/11/2017 10:48:17 AM Referred By: Confirmed By:NURIA MELENDEZ MD
--- NOTE | 2017-11-11 11:45 | CONSULT ---
Consultation: REQUESTING PROVIDER: CONSULT REQUEST: We have been asked to medically evaluate this patient for Follicular lymphoma. HISTORY OF PRESENT ILLNESS: Patient is a 67 year old male with who presented to the ED for weakness and difficulty walking. Patient was discharged from [place] on 11/08 and has been feeling weak since then. mentions he slid on the floor due to weakness, didn't hit his head. Hence brought to the ED for further evaluation. Patient was admitted here at [facility] last month for GI bleed, two endoscopies here were non diagnostic, transferred to [place] for further evaluation. It was found that he had a large Duodenal ulcer -B cell lymphoma. His hospitalization was complicated by gayle cath infection, bacteremic, had PNA. Portacath was removed, PICC line was placed. Was treated with chemo from 11/02-11/06 and is getting Filgrastim x 7 days until 11/16. 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, follicular lymphoma, hiatal hernia, bleeding ulcer, chronic GI bleed, asbestosis, seizure disorder PAST SURGICAL HISTORY: tAVR, transverse arch graft PPM Social History: Smoking: smoked in his 20s Alcohol: social Drugs: pt denies Family History: mother age 82, h/o DM father age 98 brother age 77, [place] REVIEW OF SYSTEMS: CONSTITUTIONAL: Absent: fever, chills, diaphoresis, generalized weakness, malaise, loss of appetite, weight change HEENT: Absent: rhinorrhea, nasal congestion, throat pain, throat swelling, difficulty swallowing, mouth swelling, ear pain, eye pain, visual changes CARDIOVASCULAR: Absent: chest pain, syncope, palpitations, irregular heart rate, lightheadedness , peripheral edema RESPIRATORY: Absent: cough, shortness of breath, dyspnea with exertion, orthopnea, wheezing, stridor, hemoptysis GASTROINTESTINAL: Absent: abdominal pain, abdominal distension, nausea, vomiting, diarrhea, constipation, melena, hematochezia GENITOURINARY: Absent: dysuria, frequency, urgency, hesitancy, hematuria, flank pain, genital pain MUSCULOSKELETAL: Absent: myalgia, arthralgia, joint swelling, back pain, neck pain SKIN: Absent: rash, itching, pallor HEMATOLOGIC/IMMUNOLOGIC: Absent: easy bleeding, easy bruising, lymphadenopathy, frequent infections ENDOCRINE: Absent: unexplained weight gain, unexplained weight loss, heat intolerance, cold intolerance NEUROLOGIC: Absent: headache, focal weakness or paresthesias, dizziness, unsteady gait, seizure, mental status changes, bladder or bowel incontinence PSYCHIATRIC: Absent: anxiety, depression, suicidal or homicidal ideation, hallucinations. PHYSICAL EXAMINATION Vital Signs - 24 hr 11/10/17 11/10/17 11/10/17 15:00 17:09 19:56 Temperature 98.8 F 98.5 F Pulse Rate 80 81 Pulse Rate [ 80 Right] Respiratory 18 20 20 Rate Blood Pressure 101/65 136/63 Blood Pressure 113/80 [Left Arm] O2 Sat by Pulse 100 95 100 Oximetry (%) 11/10/17 11/11/17 11/11/17 20:15 00:15 08:00 Temperature 98.5 F 98.7 F 99.9 F H Pulse Rate 81 80 80 Pulse Rate [ Right] Respiratory 20 20 20 Rate Blood Pressure 136/63 99/61 112/63 Blood Pressure [Left Arm] O2 Sat by Pulse Oximetry (%) GENERAL: Elderly male, sitting comfortably in a chair, awake, alert, and fully oriented, in no acute distress. HEAD: Normal with no signs of trauma. EYES: EOM intact, no pallor or icterus. ENT: Ears normal, moist mucous membranes. NECK: Trachea midline, full range of motion, supple. CHEST: Gayle cath in place on the right side. RIGHT UPPER EXTREMITY: PICC Line in place, surrounding is clean. LUNGS: B/L Breath sounds equal, clear to auscultation bilaterally, no accessory muscle use. HEART: Regular rate and rhythm, S1, S2 with soft systolic murmur. ABDOMEN: Soft, nontender, nondistended, normoactive bowel sounds, no guarding, no rebound, no hepatosplenomegaly, no masses. EXTREMITIES: 2+ pulses, warm, well-perfused, no edema. NEUROLOGICAL: No facial droop. Normal speech, gait not observed. PSYCH: Normal mood, normal affect. SKIN: Warm, dry, normal turgor, no rashes or lesions noted Laboratory Results - last 24 hr 11/10/17 11/10/17 11/10/17 19:00 19:00 19:00 WBC 3.7 L RBC 2.73 L Hgb 7.6 L Hct 23.3 L MCV 85.6 MCH 27.7 MCHC 32.4 RDW 18.7 H Plt Count 175 MPV 7.9 Absolute Neuts (auto) 3.6 Total Counted 100 Neutrophils % 96.1 H Neutrophils % (Manual) 97.0 H Band Neutrophils % 2.0 Lymphocytes % 3.1 L D Monocytes % 0.3 L D Eosinophils % 0.2 Eosinophils % (Manual) 1.0 D Basophils % 0.3 Nucleated RBC % 0 PT with INR 12.30 INR 1.09 Sodium 144 Potassium 4.0 Chloride 109 H Carbon Dioxide 27 Anion Gap 8 BUN 49 H Creatinine 0.8 Creat Clearance w eGFR > 60 Random Glucose 87 Lactic Acid Calcium 8.8 Phosphorus Magnesium 2.2 D Total Bilirubin 0.6 AST 19 D ALT 24 D Alkaline Phosphatase 72 Creatine Kinase Troponin I Total Protein 5.9 L Albumin 3.0 L Urine Color Urine Appearance Urine pH Ur Specific [place] Urine Protein Urine Glucose (UA) Urine Ketones Urine Blood Urine Nitrite Urine Bilirubin Urine Urobilinogen Ur Leukocyte Esterase Blood Type Antibody Screen Crossmatch 11/10/17 11/10/17 11/10/17 19:00 19:00 21:45 WBC RBC Hgb Hct MCV MCH MCHC RDW Plt Count MPV Absolute Neuts (auto) Total Counted Neutrophils % Neutrophils % (Manual) Band Neutrophils % Lymphocytes % Monocytes % Eosinophils % Eosinophils % (Manual) Basophils % Nucleated RBC % PT with INR INR Sodium Potassium Chloride Carbon Dioxide Anion Gap BUN Creatinine Creat Clearance w eGFR Random Glucose Lactic Acid 0.9 Calcium Phosphorus Magnesium Total Bilirubin AST ALT Alkaline Phosphatase Creatine Kinase 20 L Troponin I 0.10 H Total Protein Albumin Urine Color Urine Appearance Urine pH Ur Specific [place] Urine Protein Urine Glucose (UA) Urine Ketones Urine Blood Urine Nitrite Urine Bilirubin Urine Urobilinogen Ur Leukocyte Esterase Blood Type A POSITIVE Antibody Screen Negative Crossmatch See Detail 11/10/17 11/11/17 11/11/17 22:45 07:00 07:00 WBC 2.5 L RBC 2.69 L Hgb 7.4 L Hct 22.5 L MCV 83.6 MCH 27.6 MCHC 32.9 RDW 17.9 H Plt Count 128 L D MPV 8.0 Absolute Neuts (auto) 2.4 Total Counted Neutrophils % 95.7 H Neutrophils % (Manual) Band Neutrophils % Lymphocytes % 3.0 L Monocytes % 0.8 L D Eosinophils % 0.4 D Eosinophils % (Manual) Basophils % 0.1 Nucleated RBC % 0 PT with INR 12.10 INR 1.07 Sodium Potassium Chloride Carbon Dioxide Anion Gap BUN Creatinine Creat Clearance w eGFR Random Glucose Lactic Acid Calcium Phosphorus Magnesium Total Bilirubin AST ALT Alkaline Phosphatase Creatine Kinase Troponin I Total Protein Albumin Urine Color Ltyellow Urine Appearance Clear Urine pH 6.0 Ur Specific [place] 1.018 Urine Protein Negative Urine Glucose (UA) Negative Urine Ketones Negative Urine Blood Negative Urine Nitrite Negative Urine Bilirubin Negative Urine Urobilinogen Negative Ur Leukocyte Esterase Negative Blood Type Antibody Screen Crossmatch 11/11/17 07:00 WBC RBC Hgb Hct MCV MCH MCHC RDW Plt Count MPV Absolute Neuts (auto) Total Counted Neutrophils % Neutrophils % (Manual) Band Neutrophils % Lymphocytes % Monocytes % Eosinophils % Eosinophils % (Manual) Basophils % Nucleated RBC % PT with INR INR Sodium 145 Potassium 3.7 Chloride 109 H Carbon Dioxide 27 Anion Gap 9 BUN 40 H Creatinine 0.6 L Creat Clearance w eGFR > 60 Random Glucose 85 Lactic Acid Calcium 8.2 L Phosphorus 3.3 Magnesium 2.0 Total Bilirubin AST ALT Alkaline Phosphatase Creatine Kinase Troponin I Total Protein Albumin Urine Color Urine Appearance Urine pH Ur Specific [place] Urine Protein Urine Glucose (UA) Urine Ketones Urine Blood Urine Nitrite Urine Bilirubin Urine Urobilinogen Ur Leukocyte Esterase Blood Type Antibody Screen Crossmatch Active Medications Generic Name Dose Route Start Last Admin Trade Name Kalyan PRN Reason Stop Dose Admin Amlodipine Besylate 2.5 mg 11/11/17 10:00 11/11/17 09:59 Norvasc - PO 2.5 mg DAILY DIANE Administration Atorvastatin Calcium 40 mg 11/10/17 22:00 11/10/17 23:38 Lipitor - PO 40 mg HS DIANE Administration Ferrous Sulfate 325 mg 11/11/17 17:30 Feosol - PO BIDWM DIANE Fluconazole 400 mg 11/11/17 10:00 11/11/17 09:58 Diflucan - PO 400 mg DAILY DIANE Administration Folic Acid 1 mg 11/11/17 10:00 11/11/17 09:59 Folic Acid - PO 1 mg DAILY DIANE Administration Levetiracetam 500 mg 11/10/17 22:00 11/11/17 09:59 Keppra - PO 500 mg BID DIANE Administration Pantoprazole Sodium 40 mg 11/11/17 10:00 11/11/17 09:59 Protonix - PO 40 mg DAILY DIANE Administration Tbo-Filgrastim 480 mcg 11/10/17 22:00 11/10/17 23:37 Granix - SQ 11/15/17 22:01 480 mcg HS DIANE Administration Thiamine HCl 100 mg 11/11/17 10:00 11/11/17 09:59 Vitamin B1 - PO 100 mg DAILY DIANE Administration Trimethoprim/Sulfamethoxazole 1 each 11/11/17 10:00 11/11/17 09:58 Bactrim Ds - PO 1 each MoWeFr@1000 DIANE Administration Valacyclovir HCl 500 mg 11/10/17 22:00 11/11/17 09:59 Valtrex - PO 500 mg BID DIANE Administration Patient is a 67 year Male with PMH HTN, HLD, AFIB, CHF, tAVR, 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 He verbalized understanding. Case discussed with DR. Gregorio. Dispo: Thank you for the consultative opportunity. We will continue to follow. Visit type - Emergency Visit Emergency Visit: Yes ED Registration Date: 11/10/17 Care time: The patient presented to the Emergency Department on the above date and was hospitalized for further evaluation of their emergent condition. - New Patient This patient is new to me today: Yes Date on this admission: 11/11/17 - Critical Care Critical Care patient: No
[2017-11-11] MEDS ORDERED: FUROSEMIDE 40 MG/4 ML INJECTABLE VIAL IVPUSH ONE ×2 (11:50→20:15)
--- NOTE | 2017-11-11 11:59 | PN ---
Progress Note, Physician Chief Complaint: Left sided weakness Anemia History of Present Illness: NAD Has had right sided CVA in the past Said after the ambulette dropped him off at home from [facility]-placed him in a chair , he couldn't get up. - Current Medication List Current Medications: Active Medications Albuterol/Ipratropium (Duoneb -) 1 amp NEB Q6H [facility] Amlodipine Besylate (Norvasc -) 2.5 mg PO DAILY [facility] Last Admin: 11/11/17 09:59 Dose: 2.5 mg Atorvastatin Calcium (Lipitor -) 40 mg PO HS [facility] Last Admin: 11/10/17 23:38 Dose: 40 mg Benzocaine/Menthol (Cepacol Lozenge -) 1 each MM PRN PRN PRN Reason: SORE THROAT Budesonide/Formoterol Fumarate (Symbicort 160/4.5mcg -) 2 puff IH BID [facility] Ferrous Sulfate (Feosol -) 325 mg PO BIDWM [facility] Fluconazole (Diflucan -) 400 mg PO DAILY [facility] Last Admin: 11/11/17 09:58 Dose: 400 mg Folic Acid (Folic Acid -) 1 mg PO DAILY [facility] Last Admin: 11/11/17 09:59 Dose: 1 mg Furosemide (Lasix Injection -) 40 mg IVPUSH ONCE ONE Stop: 11/11/17 11:51 Guaifenesin (Mucinex Dm -) 1 tablet PO BID [facility] Levetiracetam (Keppra -) 500 mg PO BID [facility] Last Admin: 11/11/17 09:59 Dose: 500 mg Pantoprazole Sodium (Protonix -) 40 mg PO DAILY [facility] Last Admin: 11/11/17 09:59 Dose: 40 mg Tbo-Filgrastim (Granix -) 480 mcg SQ HS [facility] Stop: 11/15/17 22:01 Last Admin: 11/10/17 23:37 Dose: 480 mcg Thiamine HCl (Vitamin B1 -) 100 mg PO DAILY [facility] Last Admin: 11/11/17 09:59 Dose: 100 mg Trimethoprim/Sulfamethoxazole (Bactrim Ds -) 1 each PO MoWeFr@1000 [facility] Last Admin: 11/11/17 09:58 Dose: 1 each Valacyclovir HCl (Valtrex -) 500 mg PO BID [facility] Last Admin: 11/11/17 09:59 Dose: 500 mg - Objective Vital Signs: Vital Signs Temperature 99.9 F H 11/11/17 08:00 Pulse Rate 80 11/11/17 08:00 Respiratory Rate 20 11/11/17 08:00 Blood Pressure 112/63 11/11/17 08:00 O2 Sat by Pulse Oximetry (%) 100 11/10/17 19:56 Constitutional: Yes: Well Nourished, No Distress, Calm Cardiovascular: Yes: Regular Rate and Rhythm Respiratory: Yes: Regular, Cough Gastrointestinal: Yes: Normal Bowel Sounds, Soft Musculoskeletal: Yes: Muscle Weakness Edema: No Peripheral Pulses WNL: Yes Neurological: Yes: Alert, Oriented Psychiatric: Yes: Alert, Oriented Labs: CBC, BMP 11/11/17 07:00 11/11/17 07:00 INR, PTT INR 1.07 (0.83-1.09) 11/11/17 07:00 Problem List - Problems (1) Pacemaker Code(s): Z95.0 - PRESENCE OF CARDIAC PACEMAKER (2) Lymphoma Assessment/Plan: -Oncology on board -was receiving chemo at [facility] -Has TABBY PICC line -Bone scan Code(s): C85.90 - NON-HODGKIN LYMPHOMA, UNSPECIFIED, UNSPECIFIED SITE Qualifiers: Lymphoma type: non-Hodgkin Non-Hodgkin lymphoma type: follicular Follicular lymphoma grade: grade II Lymphoma site: lower extremity Qualified Code(s): C82.15 - Follicular lymphoma grade II, lymph nodes of inguinal region and lower limb (3) Atrial fibrillation Assessment/Plan: chronic, controlled AC contraindicated 2/2 to hx of GI bleed and anemia Code(s): I48.91 - UNSPECIFIED ATRIAL FIBRILLATION Qualifiers: Atrial fibrillation type: persistent Qualified Code(s): I48.1 - Persistent atrial fibrillation (4) Anemia Assessment/Plan: -chronic -received 1 unit PRBC overnight -transfuse 2 units PRBC now with furosemide 40 mg IVP after 1st unit. -was low on Iron, start Feosol bid -monitor trend Code(s): D64.9 - ANEMIA, UNSPECIFIED Qualifiers: Anemia type: other cause Other causes of anemia: other cause, not classified Qualified Code(s): D64.89 - Other specified anemias (5) Old cerebrovascular accident without late effect Assessment/Plan: -CT head negative for any new infarcts -Neurology consult Code(s): Z86.73 - PRSNL HX OF TIA (TIA), AND CEREB INFRC W/O RESID DEFICITS (6) Leg weakness Assessment/Plan: -Physical therapy -Physiatry consult -D/C SNF once anemia stable and cleared by Oncology Code(s): R29.898 - OTH SYMPTOMS AND SIGNS INVOLVING THE MUSCULOSKELETAL SYSTEM Qualifiers: Laterality: left Qualified Code(s): R29.898 - Other symptoms and signs involving the musculoskeletal system Assessment/Plan see problem list
[2017-11-11 12:01] LABS: ANISOCYTOSIS 1+; MACROCYTOSIS 0; PLATELET ESTIMATE DECREASED
[2017-11-11] MEDS: ALBUTEROL SO4 2.5/IPRATROPIUM 0.5 INH SOL 3 ML VIAL.NEB. NEB SCH ×3 (12:48→20:34)
[2017-11-11] MEDS ORDERED: PT OWN MED DRAWER 7, Y5N ONE ×2 (13:16→14:18)
[2017-11-11] MEDS: BUDESONIDE/FORMETEROL FUMARATE 160/4.5 mcg INHALER IH SCH ×2 (13:29→22:03)
[2017-11-11] MEDS: guaiFENesin/D-METHORPHAN HB 1 EACH TAB.ER.12H PO SCH ×2 (13:29→22:03)
[2017-11-11] MEDS: FERROUS SO4 325 MG TABLET (FP) PO SCH (17:26)
[2017-11-11] MEDS: ATORVASTATIN CA 40 MG TABLET (FP) PO SCH (22:03)
[2017-11-11] MEDS: TBO-FILGRASTIM 480 MCG/0.8 ML DISP.SYRIN SQ SCH (23:01)
[2017-11-12] MEDS: ALBUTEROL SO4 2.5/IPRATROPIUM 0.5 INH SOL 3 ML VIAL.NEB. NEB SCH ×4 (07:15→20:36)
[2017-11-12 08:06] LABS: SERUM IRON SATURATION 14 % (15-55); TOTAL IRON BINDING CAPACITY 252 ug/dL (250-450); UIBC 216 ug/dL (111-343)
--- NOTE | 2017-11-12 09:10 | PN ---
Progress Note (short form) - Note Progress Note: cc worsening of Left leg weakness HPI 67 year old male history of lymphoma, HTN,HLD,Atrial fibrillation, chf, old left hemiparesis, bleeding gi ulncer, seizure. He was recently admitted to [facility] for gi bleed. Patient feel generalized weak and has stumbled. He has been feeling generalized weak and more so on left lower extremity . There is no seizure and ct head is unremarkable. 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, follicular lymphoma, hiatal hernia, bleeding ulcer, chronic GI bleed, asbestosis, seizure disorder PAST SURGICAL HISTORY: tAVR, transverse arch graft PPM Social History: Smoking: smoked in his 20s Alcohol: social Drugs: pt denies Family History: mother age 82, h/o DM father age 98 brother age 77, [place] Allergies No Known Drug Allergies Allergy (Verified 09/28/17 14:57) HOME MEDICATIONS: 3 Medication Instructions Recorded Atorvastatin Ca [Lipitor] 40 mg PO HS 01/12/17 levETIRAcetam [Keppra -] 500 mg PO BID tablet 02/24/17 Albuterol Sulfate Inhaler - 2 inh PO QID PRN 11/10/17 [Ventolin Hfa Inhaler -] Amlodipine Besylate 2.5 mg PO DAILY 11/10/17 Filgrastim [Neupogen] 480 mcg SQ HS 11/10/17 Fluconazole [Diflucan -] 400 mg PO DAILY 11/10/17 Folic Acid 1 mg PO DAILY 11/10/17 Pantoprazole Sodium 40 mg PO DAILY 11/10/17 Sulfamethoxazole/Trimethoprim 1 tab PO ASDIR 11/10/17 [Bactrim Ds -] Thiamine HCl [B-1] 100 mg PO DAILY 11/10/17 Valacyclovir HCl [Valtrex] 500 mg PO Q12H 11/10/17 FH,ROS, Social History reviewed in chart CT head showed right tempo-parietal lobe infarct Assessment- Old right tempo-parietal lobe infarct. He is complaining of generalized weakness and more so left leg.Most likley worsening of previous stroke due to intercurrent illness. His carotid ultrasound was negative in [address] head is unremarkable done duering this admission Plan- He is already on statin and cant get aspirin due to gi bleed - he cant get mri , unlikley to be new stroke - suggest to continue current level of care - may repeat carotid ultrasound, as it has not been done in four years, though I am not sure if he would be a candidate for any intervention at this time. - continue PT and supportive care Thanking you so much Brayden Brush MD
[2017-11-12] MEDS ORDERED: PT OWN MED DRAWER 7, Y5N ONE ×2 (09:46→10:14)
[2017-11-12] MEDS: levETIRAcetam 500 MG TABLET (FP) PO SCH ×2 (09:49→22:48)
[2017-11-12] MEDS: FLUCONAZOLE 100 MG TABLET (UD) PO SCH (09:49)
[2017-11-12] MEDS: BUDESONIDE/FORMETEROL FUMARATE 160/4.5 mcg INHALER IH SCH ×2 (09:49→22:48)
[2017-11-12] MEDS: THIAMINE HCL 100 MG TABLET (FP) PO SCH (09:49)
[2017-11-12] MEDS: FOLIC ACID 1 MG TABLET (FP) PO SCH (09:50)
[2017-11-12] MEDS: guaiFENesin/D-METHORPHAN HB 1 EACH TAB.ER.12H PO SCH ×2 (09:50→22:48)
[2017-11-12] MEDS: amLODIPine BESYLATE 2.5 MG TABLET (FP) PO SCH (09:50)
[2017-11-12] MEDS: valACYclovir HCL 500 MG TABLET (FP) PO SCH ×2 (09:50→22:48)
[2017-11-12] MEDS: FERROUS SO4 325 MG TABLET (FP) PO SCH ×2 (09:50→18:25)
[2017-11-12] MEDS: PANTOPRAZOLE 40 MG TABLET (FP) PO SCH (09:50)
--- NOTE | 2017-11-12 10:34 | PN ---
Progress Note, Physician Chief Complaint: Left sided weakness Anemia History of Present Illness: NAD Has had right sided CVA in the past Said after the ambulette dropped him off at home from [facility]-placed him in a chair , he couldn't get up. - Current Medication List Current Medications: Active Medications Albuterol/Ipratropium (Duoneb -) 1 amp NEB RQID [facility] Last Admin: 11/12/17 07:15 Dose: 1 amp Amlodipine Besylate (Norvasc -) 2.5 mg PO DAILY [facility] Last Admin: 11/12/17 09:50 Dose: 2.5 mg Atorvastatin Calcium (Lipitor -) 40 mg PO HS [facility] Last Admin: 11/11/17 22:03 Dose: 40 mg Benzocaine/Menthol (Cepacol Lozenge -) 1 each MM PRN PRN PRN Reason: SORE THROAT Budesonide/Formoterol Fumarate (Symbicort 160/4.5mcg -) 2 puff IH BID [facility] Last Admin: 11/12/17 09:49 Dose: 2 puff Ferrous Sulfate (Feosol -) 325 mg PO BIDWM [facility] Last Admin: 11/12/17 09:50 Dose: 325 mg Fluconazole (Diflucan -) 400 mg PO DAILY [facility] Last Admin: 11/12/17 09:49 Dose: 400 mg Folic Acid (Folic Acid -) 1 mg PO DAILY [facility] Last Admin: 11/12/17 09:50 Dose: 1 mg Guaifenesin (Mucinex Dm -) 1 tablet PO BID [facility] Last Admin: 11/12/17 09:50 Dose: 1 tablet Iron Sucrose 300 mg/ Sodium (Chloride) 250 mls @ 250 mls/hr IVPB ONCE ONE Stop: 11/12/17 11:31 Levetiracetam (Keppra -) 500 mg PO BID [facility] Last Admin: 11/12/17 09:49 Dose: 500 mg Pantoprazole Sodium (Protonix -) 40 mg PO DAILY [facility] Last Admin: 11/12/17 09:50 Dose: 40 mg Tbo-Filgrastim (Granix -) 480 mcg SQ HS [facility] Stop: 11/15/17 22:01 Last Admin: 11/11/17 23:01 Dose: 480 mcg Thiamine HCl (Vitamin B1 -) 100 mg PO DAILY [facility] Last Admin: 11/12/17 09:49 Dose: 100 mg Trimethoprim/Sulfamethoxazole (Bactrim Ds -) 1 each PO MoWeFr@1000 [facility] Last Admin: 11/11/17 09:58 Dose: 1 each Valacyclovir HCl (Valtrex -) 500 mg PO BID [facility] Last Admin: 11/12/17 09:50 Dose: 500 mg - Objective Vital Signs: Vital Signs Temperature 98.7 F 11/12/17 05:00 Pulse Rate 82 11/12/17 05:00 Respiratory Rate 20 11/12/17 05:00 Blood Pressure 98/62 11/12/17 05:00 O2 Sat by Pulse Oximetry (%) 98 11/11/17 22:00 Constitutional: Yes: Well Nourished, No Distress, Calm Cardiovascular: Yes: Regular Rate and Rhythm Respiratory: Yes: Regular Gastrointestinal: Yes: Normal Bowel Sounds, Soft Musculoskeletal: Yes: Muscle Weakness Neurological: Yes: Alert, Oriented Psychiatric: Yes: Alert, Oriented Labs: CBC, BMP 11/11/17 07:00 11/11/17 07:00 INR, PTT INR 1.07 (0.83-1.09) 11/11/17 07:00 Problem List - Problems (1) Pacemaker Code(s): Z95.0 - PRESENCE OF CARDIAC PACEMAKER (2) Lymphoma Assessment/Plan: -Oncology on board -was receiving [facility] -Has TABBY PICC line -Bone scan negative Code(s): C85.90 - NON-HODGKIN LYMPHOMA, UNSPECIFIED, UNSPECIFIED SITE Qualifiers: Lymphoma type: non-Hodgkin Non-Hodgkin lymphoma type: follicular Follicular lymphoma grade: grade II Lymphoma site: lower extremity Qualified Code(s): C82.15 - Follicular lymphoma grade II, lymph nodes of inguinal region and lower limb (3) Atrial fibrillation Assessment/Plan: chronic, controlled AC contraindicated 2/2 to hx of GI bleed and anemia Code(s): I48.91 - UNSPECIFIED ATRIAL FIBRILLATION Qualifiers: Atrial fibrillation type: persistent Qualified Code(s): I48.1 - Persistent atrial fibrillation (4) Anemia Assessment/Plan: -chronic -was low on Iron, start Feosol bid -monitor trend -todays labs pending Code(s): D64.9 - ANEMIA, UNSPECIFIED Qualifiers: Anemia type: other cause Other causes of anemia: other cause, not classified Qualified Code(s): D64.89 - Other specified anemias (5) Old cerebrovascular accident without late effect Assessment/Plan: -CT head negative for any new infarcts -Neurology consult Code(s): Z86.73 - PRSNL HX OF TIA (TIA), AND CEREB INFRC W/O RESID DEFICITS (6) Leg weakness Assessment/Plan: -Physical therapy -Physiatry consult -D/C SNF once anemia stable and cleared by Oncology Code(s): R29.898 - OTH SYMPTOMS AND SIGNS INVOLVING THE MUSCULOSKELETAL SYSTEM Qualifiers: Laterality: left Qualified Code(s): R29.898 - Other symptoms and signs involving the musculoskeletal system Assessment/Plan see problem list
[2017-11-12] MEDS ORDERED: IRON SUCROSE INJECTION 300 MG in SODIUM CHLORIDE 235 ML IVPB ONE (11:00)
--- NOTE | 2017-11-12 15:22 | PN ---
Physical Exam: SUBJECTIVE: Patient seen and examined at bed side this morning. No complaints. Dizziness and weakness has resolved. Denies chest pain, sob, cough, palpitation , abdominal pain, nausea or vomiting. No acute overnight events. OBJECTIVE: Vital Signs Period Temp Pulse Resp BP Sys/Lugo Pulse Ox Last 24 Hr 97 F-99.6 F 80-84 20-20 98-117/62-70 98-98 GENERAL: Elderly male, sitting comfortably in a chair, awake, alert, and fully oriented, in no acute distress. HEAD: Normal with no signs of trauma. EYES: EOM intact, no pallor or icterus. ENT: Ears normal, moist mucous membranes. NECK: Trachea midline, full range of motion, supple. CHEST: Gayle cath removed from the right side, area looks clean. RIGHT UPPER EXTREMITY: PICC Line in place, surrounding is clean. LUNGS: B/L Breath sounds equal, clear to auscultation bilaterally, no accessory muscle use. HEART: Regular rate and rhythm, S1, S2 with soft systolic murmur. ABDOMEN: Soft, nontender, nondistended, normoactive bowel sounds, no guarding, no rebound, no hepatosplenomegaly, no masses. EXTREMITIES: 2+ pulses, warm, well-perfused, no edema. NEUROLOGICAL: No facial droop. Normal speech, gait not observed. PSYCH: Normal mood, normal affect. SKIN: Warm, dry, normal turgor, no rashes or lesions noted Laboratory Results - last 24 hr 11/10/17 11/11/17 21:45 12:00 Iron 36 L TIBC 252 Iron Saturation 14 L Blood Type A POSITIVE Antibody Screen Negative Crossmatch See Detail Active Medications Generic Name Dose Route Start Last Admin Trade Name Freq PRN Reason Stop Dose Admin Albuterol/Ipratropium 1 amp 11/11/17 12:00 11/12/17 11:58 Duoneb - NEB 1 amp RQID DIANE Administration Amlodipine Besylate 2.5 mg 11/11/17 10:00 11/12/17 09:50 Norvasc - PO 2.5 mg DAILY DIANE Administration Atorvastatin Calcium 40 mg 11/10/17 22:00 11/11/17 22:03 Lipitor - PO 40 mg HS DIANE Administration Benzocaine/Menthol 1 each 11/11/17 11:47 Cepacol Lozenge - MM PRN PRN SORE THROAT Budesonide/Formoterol Fumarate 2 puff 11/11/17 13:00 11/12/17 09:49 Symbicort 160/4.5mcg - IH 2 puff BID DIANE Administration Ferrous Sulfate 325 mg 11/11/17 17:30 11/12/17 09:50 Feosol - PO 325 mg BIDWM DIANE Administration Fluconazole 400 mg 11/11/17 10:00 11/12/17 09:49 Diflucan - PO 400 mg DAILY DIANE Administration Folic Acid 1 mg 11/11/17 10:00 11/12/17 09:50 Folic Acid - PO 1 mg DAILY DIANE Administration Guaifenesin 1 tablet 11/11/17 13:00 11/12/17 09:50 Mucinex Dm - PO 1 tablet BID DIANE Administration Levetiracetam 500 mg 11/10/17 22:00 11/12/17 09:49 Keppra - PO 500 mg BID DIANE Administration Pantoprazole Sodium 40 mg 11/11/17 10:00 11/12/17 09:50 Protonix - PO 40 mg DAILY DIANE Administration Tbo-Filgrastim 480 mcg 11/10/17 22:00 11/11/17 23:01 Granix - SQ 11/15/17 22:01 480 mcg HS DIANE Administration Thiamine HCl 100 mg 11/11/17 10:00 11/12/17 09:49 Vitamin B1 - PO 100 mg DAILY DIANE Administration Trimethoprim/Sulfamethoxazole 1 each 11/11/17 10:00 11/11/17 09:58 Bactrim Ds - PO 1 each MoWeFr@1000 DIANE Administration Valacyclovir HCl 500 mg 11/10/17 22:00 11/12/17 09:50 Valtrex - PO 500 mg BID DIANE Administration Patient is a 67 year Male with PMH HTN, HLD, AFIB, CHF, tAVR, 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 Will transfuse if needed. Watch for any bleed Protonix PO Follicular lymphoma Patient has been undergoing chemo at [facility]. Has an appointment for chemo for 11/23. Plan is to continue his therapy at [facility]. Can be discharged from Heme/Onc standpoint. s/p EPOCH (without vincristine) 11/02-11/06 needs filgristam x 7 days until thursday 11/16 cont bactrim, valtrex, and diflucan for prophylaxis Plan of care explained to the patient. He verbalized understanding. Case discussed with Dr. Ash. Dispo: Thank you for the consultative opportunity. We will continue to follow. Visit type - Emergency Visit Emergency Visit: Yes ED Registration Date: 11/10/17 Care time: The patient presented to the Emergency Department on the above date and was hospitalized for further evaluation of their emergent condition. - New Patient This patient is new to me today: No - Critical Care Critical Care patient: No
[2017-11-12 17:39] LABS: CHLORIDE 103 mmol/L (98-107); POTASSIUM 4.7 mmol/L (3.5-5.1); SODIUM 141 mmol/L (136-145)
[2017-11-12 17:41] LABS: BASO % 0.3 % (0-2.0); EOS % 0.3 % (0-4.5); HEMATOCRIT 30.4 % (35.4-49); HEMOGLOBIN 10.3 GM/dL (11.7-16.9); LYMPH % 4.2 % (8-40); MCH 28.5 pg (25.7-33.7); MEAN CELL VOLUME 83.7 fl (80-96); MEAN PLT VOLUME 9.2 fl (7.5-11.1); MONO % 3.3 % (3.8-10.2); NEUT % 91.9 % (42.8-82.8); PLATELET COUNT 117 K/MM3 (134-434); RBC 3.64 M/mm3 (4.00-5.60); RDW 16.8 % (11.9-15.9); WHITE BLOOD COUNT 4.2 K/mm3 (4.0-10.0)
[2017-11-12 17:46] LABS: ALBUMIN 3.3 g/dl (3.4-5.0); ALK PHOS 89 U/L (45-117); ANION GAP 12 MMOL/L (8-16); BILIRUBIN,TOTAL 0.7 mg/dL (0.2-1.0); BLOOD UREA NITROGEN 40 mg/dL (7-18); CALCIUM 8.8 mg/dL (8.5-10.1); CO2 26 mmol/L (21-32); CREATININE 1.1 mg/dL (0.7-1.3); GLUCOSE,RANDOM 111 mg/dL (74-106); SGOT/AST 20 U/L (15-37); SGPT/ALT 37 U/L (12-78); TOT PROT 6.5 g/dl (6.4-8.2)
--- NOTE | 2017-11-12 18:29 | CONS ---
DATE OF CONSULTATION: 11/12/2017 PHYSICAL MEDICINE REHABILITATION CONSULTATION HISTORY OF PRESENT ILLNESS: Patient is a 67-year-old man with past medical history of CVA with residual left hemiparesis affecting mainly his left upper limb as well as follicular lymphoma status post recent chemotherapy [facility] who was admitted with weakness on November 10, 2017. Patient evidently had recent chemotherapy and developed increasing anemia. On admission, his hemoglobin was 7.6 and platelet count was 175. WBCs were low at 3.7. Repeat blood work yesterday showed WBCs 2.5, hemoglobin 7.4, and platelet count 128. Chemistry demonstrated a BUN elevated at 49 to creatinine of 0.8. He had low albumin at 3.0, repeat blood work showed BUN falling to 40, creatinine to 0.6. Patient had elevated troponin on November 10 at 0.10. Patient feels generally weak but no new isolated weakness in the upper or lower extremities. Patient was seen by physical therapy on November 11 but only was able to ambulate about 5 feet with a rolling walker, had a contact guard level of 2 limited by fatigue and weakness, and balance was also noted. He transferred with close contact guard of 2 sit to stand and supine to sit and then assessed. Patient is hoping to go to [facility] for short term rehabilitation. PAST MEDICAL AND SURGICAL HISTORY: As above. Follicular lymphoma, also CVA with mild left hemiparesis mainly affecting the left upper extremity, hypertension, hyperlipidemia, atrial fibrillation, congestive heart failure, aortic valve replacement, chronic GI bleed, asbestosis, seizure disorder, permanent pacemaker implant. SOCIAL HISTORY: He is a former tobacco user many years ago but had quit . Social alcohol user, lives in a private house with his . He has 3 steps to enter and does not go up to the second level of the house. Premorbidly he states he could ambulate without assistive device. Current function as above. REVIEW OF SYSTEMS: No current dizziness or lightheadedness, but he has had some dizziness when standing. No headaches, no blurry vision, double vision, or change in vision. He states he had no visual deficits from his CVA. No nausea, vomiting, difficulty swallowing, difficulty chewing, no word finding difficulty or speech disorder. He does get dyspneic with any exertion but no shortness of breath at rest, no chest pain, no abdominal discomfort, no bowel/bladder incontinence or retention, no diarrhea or loose stool. He has chronic numbness in the left upper and left lower extremity, more of a tingling and weakness, particularly in the left upper extremity, chronic swelling involving his left lower extremity but no weakness in the lower extremities, no joint arthralgias, no neck or back pain. No significant weight change. PHYSICAL EXAMINATION: GENERAL: Patient is seen sitting out of bed in a chair. He is awake, alert, cooperative, and in no acute distress. HEENT: Normocephalic and atraumatic. His extraocular muscles appear intact. He has no obvious facial weakness. NECK: Supple. EXTREMITIES: He does have some edema of the left lower extremity, +1, compared to the right side, where there does not appear to be any edema, no isolated calf tenderness. SKIN: Without any rash. NEUROMUSCULAR: He is awake, alert, oriented x3, seems to have good insight into his medical conditions. Cranial nerves, he may have a slight left homonymous hemianopsia involving cranial nerves 2, but otherwise 3-12 are grossly intact. He has got weakness throughout his left upper extremity, proximally only a 2/5, distally a 3+/5, right upper extremity 5/5 strength with full range of motion. Left shoulder girdle has limited range even passively with some slight discomfort. In the lower extremities, he has 5/5 strength in sitting position. Hip flexion, hip abduction, knee flexion/extension and dorsiflexion. He has slightly diminished sensation on the left to light touch and pinprick compared to the right side, brisk reflex on the left compared to the right, unable to stand or ambulate him at this time, as there is no assistive device, and he is very limited with his mobility. OVERALL IMPRESSION: 1. Deficits to mobility, activities of daily living, multifactorial. 2. Generalized weakness. 3. Pancytopenia status post chemotherapy. 4. Elevated BUN to creatinine, possible prerenal azotemia. 5. History of cerebrovascular accident with left hemiparesis particularly affecting the left upper extremity. 6. Chronic edema of left lower extremity. 7. Follicular lymphoma status post chemotherapy. 8. Atrial fibrillation. 9. History of congestive heart failure. 10. History of hypertension. 11. Hyperlipidemia. 12. Elevated troponin. PLAN AND SUGGESTION: 1. Physical therapy as tolerated including bed mobility transfers, gait training, strengthening, reconditioning. 2. Continue out of bed to chair. 3. DVT prophylaxis per hematology/oncology. Patient has slightly low platelet count but is immobile. 4. Skin precaution on the heel and sacrum for any erythema or breakdown. 5. Monitor bowels for constipation. 6. Blood work pending today. 7. Agree with short-term rehabilitation in a custodial facility. 8. Sequential compression devices. Thank you for this referral. MICHELE KHALIL M.D. [id number]
[2017-11-12 20:32] LABS: ANISOCYTOSIS 2+; MACROCYTOSIS 1+
[2017-11-12 20:33] LABS: PLATELET ESTIMATE DECREASED
[2017-11-12] MEDS: ATORVASTATIN CA 40 MG TABLET (FP) PO SCH (22:48)
[2017-11-12] MEDS: TBO-FILGRASTIM 480 MCG/0.8 ML DISP.SYRIN SQ SCH (22:48)
--- NOTE | 2017-11-12 23:16 | PN ---
Teaching Attending Note Name of Resident: Dayana Beard ATTENDING PHYSICIAN STATEMENT I saw and evaluated the patient. I reviewed the resident's note and discussed the case with the resident. I agree with the resident's findings and plan as documented. 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
[2017-11-13 07:11] LABS: BASO % 0.3 % (0-2.0); EOS % 0.3 % (0-4.5); HEMATOCRIT 26.4 % (35.4-49); HEMOGLOBIN 8.9 GM/dL (11.7-16.9); LYMPH % 4.1 % (8-40); MCH 28.2 pg (25.7-33.7); MCHC 33.6 g/dl (32.0-35.9); MEAN CELL VOLUME 83.7 fl (80-96); MEAN PLT VOLUME 10.1 fl (7.5-11.1); MONO % 3.8 % (3.8-10.2); NEUT % 91.5 % (42.8-82.8); PLATELET COUNT 83 K/MM3 (134-434); RBC 3.16 M/mm3 (4.00-5.60); RDW 16.7 % (11.9-15.9); WHITE BLOOD COUNT 4.1 K/mm3 (4.0-10.0)
[2017-11-13] MEDS: ALBUTEROL SO4 2.5/IPRATROPIUM 0.5 INH SOL 3 ML VIAL.NEB. NEB SCH ×4 (07:40→20:36)
[2017-11-13 07:42] LABS: CHLORIDE 107 mmol/L (98-107); POTASSIUM 4.7 mmol/L (3.5-5.1); SODIUM 144 mmol/L (136-145)
[2017-11-13 07:56] LABS: ALBUMIN 2.8 g/dl (3.4-5.0); ALK PHOS 79 U/L (45-117); ANION GAP 10 MMOL/L (8-16); BILIRUBIN,TOTAL 0.6 mg/dL (0.2-1.0); BLOOD UREA NITROGEN 32 mg/dL (7-18); CALCIUM 8.4 mg/dL (8.5-10.1); CO2 27 mmol/L (21-32); CREATININE 0.7 mg/dL (0.7-1.3); GLUCOSE,RANDOM 91 mg/dL (74-106); SGOT/AST 15 U/L (15-37); SGPT/ALT 31 U/L (12-78); TOT PROT 5.5 g/dl (6.4-8.2)
[2017-11-13] MEDS: FLUCONAZOLE 100 MG TABLET (UD) PO SCH (10:06)
[2017-11-13] MEDS: SULFAMETHOXAZOLE/TRIMETHOPRIM 800MG/160MG D.S. TABLET PO SCH (10:06)
[2017-11-13] MEDS: PANTOPRAZOLE 40 MG TABLET (FP) PO SCH (10:06)
[2017-11-13] MEDS: levETIRAcetam 500 MG TABLET (FP) PO SCH ×2 (10:06→22:09)
[2017-11-13] MEDS: valACYclovir HCL 500 MG TABLET (FP) PO SCH ×2 (10:06→22:09)
[2017-11-13] MEDS: FOLIC ACID 1 MG TABLET (FP) PO SCH (10:06)
[2017-11-13] MEDS: THIAMINE HCL 100 MG TABLET (FP) PO SCH (10:06)
[2017-11-13] MEDS: FERROUS SO4 325 MG TABLET (FP) PO SCH ×2 (10:06→17:22)
[2017-11-13] MEDS: BUDESONIDE/FORMETEROL FUMARATE 160/4.5 mcg INHALER IH SCH ×2 (10:07→22:09)
[2017-11-13] MEDS: guaiFENesin/D-METHORPHAN HB 1 EACH TAB.ER.12H PO SCH ×2 (10:07→22:09)
[2017-11-13] MEDS: amLODIPine BESYLATE 2.5 MG TABLET (FP) PO SCH (10:07)
[2017-11-13 10:48] LABS: ANISOCYTOSIS 1+; MACROCYTOSIS 0; PLATELET ESTIMATE DECREASED; TOXIC GRANULATION 1+
--- NOTE | 2017-11-13 11:06 | PN ---
Progress Note (short form) - Note Progress Note: Patient seen and examined S/P Chemotherapy for transformed lymphoma Weak, debilitated Last Vital Signs Temp Pulse Resp BP Pulse Ox 98.9 F 81 18 97/61 95 11/13/17 09:00 11/13/17 10:00 11/13/17 10:00 11/13/17 10:00 11/12/17 21:00 HEENT: KELLIE, EOM Intact Oropharynx: No thrush, No mucositis Neck: Supple Nodes: Without adenopathy Current Medications Generic Name Dose Route Start Last Admin Trade Name Freq PRN Reason Stop Dose Admin Albuterol/Ipratropium 1 amp 11/11/17 12:00 11/13/17 07:40 Duoneb - NEB Not Given RQID DIANE Amlodipine Besylate 2.5 mg 11/11/17 10:00 11/13/17 10:07 Norvasc - PO Not Given DAILY DIANE Atorvastatin Calcium 40 mg 11/10/17 22:00 11/12/17 22:48 Lipitor - PO 40 mg HS DIANE Administration Benzocaine/Menthol 1 each 11/11/17 11:47 Cepacol Lozenge - MM PRN PRN SORE THROAT Budesonide/Formoterol Fumarate 2 puff 11/11/17 13:00 11/13/17 10:07 Symbicort 160/4.5mcg - IH 2 puff BID DIANE Administration Ferrous Sulfate 325 mg 11/11/17 17:30 11/13/17 10:06 Feosol - PO 325 mg BIDWM DIANE Administration Fluconazole 400 mg 11/11/17 10:00 11/13/17 10:06 Diflucan - PO 400 mg DAILY DIANE Administration Folic Acid 1 mg 11/11/17 10:00 11/13/17 10:06 Folic Acid - PO 1 mg DAILY DIANE Administration Guaifenesin 1 tablet 11/11/17 13:00 11/13/17 10:07 Mucinex Dm - PO 1 tablet BID DIANE Administration Levetiracetam 500 mg 11/10/17 22:00 11/13/17 10:06 Keppra - PO 500 mg BID DIANE Administration Pantoprazole Sodium 40 mg 11/11/17 10:00 11/13/17 10:06 Protonix - PO 40 mg DAILY DIANE Administration Tbo-Filgrastim 480 mcg 11/10/17 22:00 11/12/17 22:48 Granix - SQ 11/15/17 22:01 480 mcg HS DIANE Administration Thiamine HCl 100 mg 11/11/17 10:00 11/13/17 10:06 Vitamin B1 - PO 100 mg DAILY DIANE Administration Trimethoprim/Sulfamethoxazole 1 each 11/11/17 10:00 11/13/17 10:06 Bactrim Ds - PO 1 each MoWeFr@1000 DIANE Administration Valacyclovir HCl 500 mg 11/10/17 22:00 11/13/17 10:06 Valtrex - PO 500 mg BID DIANE Administration CBC, BMP 11/13/17 06:00 11/13/17 06:00 Impression : transformed lymphoma S/P chemotherapy Anemia Thrombocytopenia Plan : Continued monitoring Social service monitoring Spoke with patient and at length.
[2017-11-13] MEDS ORDERED: PT OWN MED DRAWER 7, Y5N ONE (21:43)
[2017-11-13] MEDS: TBO-FILGRASTIM 480 MCG/0.8 ML DISP.SYRIN SQ SCH (22:08)
[2017-11-13] MEDS: ATORVASTATIN CA 40 MG TABLET (FP) PO SCH (22:09)
[2017-11-14 07:16] LABS: BASO % 1.5 % (0-2.0); EOS % 0.4 % (0-4.5); HEMATOCRIT 23.7 % (35.4-49); MCH 28.4 pg (25.7-33.7); MCHC 33.9 g/dl (32.0-35.9); MEAN CELL VOLUME 83.8 fl (80-96); MEAN PLT VOLUME 10.6 fl (7.5-11.1); MONO % 9.6 % (3.8-10.2); NEUT % 83.5 % (42.8-82.8); PLATELET COUNT 74 K/MM3 (134-434); RBC 2.83 M/mm3 (4.00-5.60); RDW 16.8 % (11.9-15.9); WHITE BLOOD COUNT 2.6 K/mm3 (4.0-10.0)
[2017-11-14 07:23] LABS: INR 1.07 (0.83-1.09); PROTHROMBIN TIME (PATIENT) 12.1 SEC (9.7-13.0)
[2017-11-14 07:26] LABS: ACTIVATED PTT 30.2 SECONDS (25.2-36.5)
[2017-11-14 08:00] LABS: CHLORIDE 107 mmol/L (98-107); POTASSIUM 4.2 mmol/L (3.5-5.1); SODIUM 141 mmol/L (136-145)
[2017-11-14 08:06] LABS: ALBUMIN 2.7 g/dl (3.4-5.0); ALK PHOS 81 U/L (45-117); ANION GAP 9 MMOL/L (8-16); BILIRUBIN,TOTAL 0.4 mg/dL (0.2-1.0); BLOOD UREA NITROGEN 28 mg/dL (7-18); CALCIUM 8.2 mg/dL (8.5-10.1); CO2 25 mmol/L (21-32); CREATININE 0.6 mg/dL (0.7-1.3); GLUCOSE,RANDOM 84 mg/dL (74-106); MAGNESIUM 1.7 mg/dL (1.8-2.4); SGOT/AST 14 U/L (15-37); SGPT/ALT 26 U/L (12-78); TOT PROT 5.2 g/dl (6.4-8.2)
--- NOTE | 2017-11-14 08:15 | PN ---
Progress Note, Physician Chief Complaint: Left sided weakness Anemia History of Present Illness: NAD - Current Medication List Current Medications: Active Medications Albuterol/Ipratropium (Duoneb -) 1 amp NEB RQID [facility] Last Admin: 11/13/17 20:36 Dose: 1 amp Amlodipine Besylate (Norvasc -) 2.5 mg PO DAILY [facility] Last Admin: 11/13/17 10:07 Dose: Not Given Atorvastatin Calcium (Lipitor -) 40 mg PO HS [facility] Last Admin: 11/13/17 22:09 Dose: 40 mg Benzocaine/Menthol (Cepacol Lozenge -) 1 each MM PRN PRN PRN Reason: SORE THROAT Budesonide/Formoterol Fumarate (Symbicort 160/4.5mcg -) 2 puff IH BID [facility] Last Admin: 11/13/17 22:09 Dose: 2 puff Ferrous Sulfate (Feosol -) 325 mg PO BIDWM [facility] Last Admin: 11/13/17 17:22 Dose: 325 mg Fluconazole (Diflucan -) 400 mg PO DAILY [facility] Last Admin: 11/13/17 10:06 Dose: 400 mg Folic Acid (Folic Acid -) 1 mg PO DAILY [facility] Last Admin: 11/13/17 10:06 Dose: 1 mg Guaifenesin (Mucinex Dm -) 1 tablet PO BID [facility] Last Admin: 11/13/17 22:09 Dose: 1 tablet Levetiracetam (Keppra -) 500 mg PO BID [facility] Last Admin: 11/13/17 22:09 Dose: 500 mg Pantoprazole Sodium (Protonix -) 40 mg PO DAILY [facility] Last Admin: 11/13/17 10:06 Dose: 40 mg Tbo-Filgrastim (Granix -) 480 mcg SQ [facility] Stop: 11/15/17 22:01 Last Admin: 11/13/17 22:08 Dose: 480 mcg Thiamine HCl (Vitamin B1 -) 100 mg PO DAILY [facility] Last Admin: 11/13/17 10:06 Dose: 100 mg Trimethoprim/Sulfamethoxazole (Bactrim Ds -) 1 each PO MoWeFr@1000 [facility] Last Admin: 11/13/17 10:06 Dose: 1 each Valacyclovir HCl (Valtrex -) 500 mg PO BID [facility] Last Admin: 11/13/17 22:09 Dose: 500 mg - Objective Vital Signs: Vital Signs Temperature 98 F 11/14/17 06:00 Pulse Rate 80 11/14/17 06:00 Respiratory Rate 18 11/14/17 06:00 Blood Pressure 101/59 11/14/17 06:00 O2 Sat by Pulse Oximetry (%) 99 11/13/17 21:00 Constitutional: Yes: Well Nourished, No Distress, Calm Cardiovascular: Yes: Regular Rate and Rhythm Respiratory: Yes: Regular Gastrointestinal: Yes: Normal Bowel Sounds, Soft Musculoskeletal: Yes: Muscle Weakness Edema: No Peripheral Pulses WNL: Yes Neurological: Yes: Alert, Oriented Psychiatric: Yes: Alert, Oriented Labs: CBC, BMP 11/14/17 06:00 INR, PTT INR 1.07 (0.83-1.09) 11/14/17 06:00 Problem List - Problems (1) Pacemaker Code(s): Z95.0 - PRESENCE OF CARDIAC PACEMAKER (2) Lymphoma Assessment/Plan: -Oncology on board -was receiving R Epoch, next treatment due 11/23/17, already scheduled at [facility] -Has TABBY PICC line -Bone scan negative Code(s): C85.90 - NON-HODGKIN LYMPHOMA, UNSPECIFIED, UNSPECIFIED SITE Qualifiers: Lymphoma type: non-Hodgkin Non-Hodgkin lymphoma type: follicular Follicular lymphoma grade: grade II Lymphoma site: lower extremity Qualified Code(s): C82.15 - Follicular lymphoma grade II, lymph nodes of inguinal region and lower limb (3) Atrial fibrillation Assessment/Plan: chronic, controlled AC contraindicated 2/2 to hx of GI bleed and anemia Code(s): I48.91 - UNSPECIFIED ATRIAL FIBRILLATION Qualifiers: Atrial fibrillation type: persistent Qualified Code(s): I48.1 - Persistent atrial fibrillation (4) Anemia Assessment/Plan: -chronic -was low on Iron, start Feosol bid -monitor trend -Hg today 8.0 -1 dose of Venofer today Code(s): D64.9 - ANEMIA, UNSPECIFIED Qualifiers: Anemia type: other cause Other causes of anemia: other cause, not classified Qualified Code(s): D64.89 - Other specified anemias (5) Old cerebrovascular accident without late effect Assessment/Plan: -CT head negative for any new infarcts -Neurology consult Code(s): Z86.73 - PRSNL HX OF TIA (TIA), AND CEREB INFRC W/O RESID DEFICITS (6) Leg weakness Assessment/Plan: -Physical therapy -Physiatry consult Code(s): R29.898 - OTH SYMPTOMS AND SIGNS INVOLVING THE MUSCULOSKELETAL SYSTEM Qualifiers: Laterality: left Qualified Code(s): R29.898 - Other symptoms and signs involving the musculoskeletal system (7) Thrombocytopenia Assessment/Plan: -mild drop from yesterday -monitor trend -Transfuse if plt <10 mg/dl Code(s): D69.6 - THROMBOCYTOPENIA, UNSPECIFIED Assessment/Plan see problem list
[2017-11-14] MEDS: FERROUS SO4 325 MG TABLET (FP) PO SCH ×2 (08:41→17:09)
[2017-11-14] MEDS ORDERED: IRON SUCROSE INJECTION 300 MG in SODIUM CHLORIDE 235 ML IVPB ONE (09:00)
[2017-11-14] MEDS: ALBUTEROL SO4 2.5/IPRATROPIUM 0.5 INH SOL 3 ML VIAL.NEB. NEB SCH ×4 (09:37→19:11)
[2017-11-14] MEDS: FLUCONAZOLE 100 MG TABLET (UD) PO SCH (10:12)
[2017-11-14] MEDS: BUDESONIDE/FORMETEROL FUMARATE 160/4.5 mcg INHALER IH SCH ×2 (10:12→22:27)
[2017-11-14] MEDS: valACYclovir HCL 500 MG TABLET (FP) PO SCH ×2 (10:13→22:27)
[2017-11-14] MEDS: THIAMINE HCL 100 MG TABLET (FP) PO SCH (10:13)
[2017-11-14] MEDS: PANTOPRAZOLE 40 MG TABLET (FP) PO SCH (10:13)
[2017-11-14] MEDS: FOLIC ACID 1 MG TABLET (FP) PO SCH (10:13)
[2017-11-14] MEDS: amLODIPine BESYLATE 2.5 MG TABLET (FP) PO SCH (10:13)
[2017-11-14] MEDS: levETIRAcetam 500 MG TABLET (FP) PO SCH ×2 (10:13→22:27)
[2017-11-14] MEDS: guaiFENesin/D-METHORPHAN HB 1 EACH TAB.ER.12H PO SCH ×2 (10:14→22:28)
[2017-11-14 11:12] LABS: ANISOCYTOSIS 2+; MACROCYTOSIS 0; PLATELET ESTIMATE DECREASED
[2017-11-14] MEDS: ATORVASTATIN CA 40 MG TABLET (FP) PO SCH (22:27)
[2017-11-14] MEDS: TBO-FILGRASTIM 480 MCG/0.8 ML DISP.SYRIN SQ SCH (22:28)
[2017-11-14] MEDS: BENZOCAINE/MENTH/CETYLPYRD CL 1 EACH LOZENGE MM PRN (22:40)
--- NOTE | 2017-11-14 23:21 | PN ---
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
[2017-11-15] MEDS: BENZOCAINE/MENTH/CETYLPYRD CL 1 EACH LOZENGE MM PRN ×2 (06:47→22:04)
[2017-11-15] MEDS: ALBUTEROL SO4 2.5/IPRATROPIUM 0.5 INH SOL 3 ML VIAL.NEB. NEB SCH ×4 (07:40→21:02)
[2017-11-15 07:57] LABS: BASO % 0.9 % (0-2.0); EOS % 0.3 % (0-4.5); HEMATOCRIT 24.1 % (35.4-49); HEMOGLOBIN 8.1 GM/dL (11.7-16.9); LYMPH % 5.5 % (8-40); MCH 28.6 pg (25.7-33.7); MCHC 33.5 g/dl (32.0-35.9); MEAN CELL VOLUME 85.3 fl (80-96); MEAN PLT VOLUME 10.8 fl (7.5-11.1); MONO % 16.6 % (3.8-10.2); NEUT % 76.7 % (42.8-82.8); PLATELET COUNT 87 K/MM3 (134-434); RBC 2.82 M/mm3 (4.00-5.60)
[2017-11-15] MEDS: FERROUS SO4 325 MG TABLET (FP) PO SCH ×2 (08:34→17:17)
[2017-11-15 08:41] LABS: CALCIUM 8.3 mg/dL (8.5-10.1); CHLORIDE 106 mmol/L (98-107); POTASSIUM 4.1 mmol/L (3.5-5.1); SODIUM 142 mmol/L (136-145)
[2017-11-15 08:47] LABS: ALBUMIN 2.8 g/dl (3.4-5.0); ALK PHOS 89 U/L (45-117); ANION GAP 12 MMOL/L (8-16); BILIRUBIN,TOTAL 0.3 mg/dL (0.2-1.0); BLOOD UREA NITROGEN 25 mg/dL (7-18); CO2 24 mmol/L (21-32); CREATININE 0.7 mg/dL (0.7-1.3); GLUCOSE,RANDOM 83 mg/dL (74-106); SGOT/AST 12 U/L (15-37); SGPT/ALT 23 U/L (12-78); TOT PROT 5.4 g/dl (6.4-8.2)
--- NOTE | 2017-11-15 08:51 | PN ---
Progress Note, Physician Chief Complaint: Left sided weakness Anemia History of Present Illness: NAD in chair eating breakfast H/H stable Plt stable Seen by hematology if H/H continues to be stable, would d/c to SNF or home and then have pt f/u at [facility] for next session of chemotherapy already scheduled for 11/23/17 - Current Medication List Current Medications: Active Medications Albuterol/Ipratropium (Duoneb -) 1 amp NEB RQID [facility] Last Admin: 11/15/17 07:40 Dose: 1 amp Amlodipine Besylate (Norvasc -) 2.5 mg PO DAILY [facility] Last Admin: 11/14/17 10:13 Dose: Not Given Atorvastatin Calcium (Lipitor -) 40 mg PO HS [facility] Last Admin: 11/14/17 22:27 Dose: 40 mg Benzocaine/Menthol (Cepacol Lozenge -) 1 each MM PRN PRN PRN Reason: SORE THROAT Last Admin: 11/15/17 06:47 Dose: 1 each Budesonide/Formoterol Fumarate (Symbicort 160/4.5mcg -) 2 puff IH BID [facility] Last Admin: 11/14/17 22:27 Dose: 2 puff Ferrous Sulfate (Feosol -) 325 mg PO BIDWM [facility] Last Admin: 11/14/17 17:09 Dose: 325 mg Fluconazole (Diflucan -) 400 mg PO DAILY [facility] Last Admin: 11/14/17 10:12 Dose: 400 mg Folic Acid (Folic Acid -) 1 mg PO DAILY [facility] Last Admin: 11/14/17 10:13 Dose: 1 mg Guaifenesin (Mucinex Dm -) 1 tablet PO BID [facility] Last Admin: 11/14/17 22:28 Dose: 1 tablet Levetiracetam (Keppra -) 500 mg PO BID [facility] Last Admin: 11/14/17 22:27 Dose: 500 mg Pantoprazole Sodium (Protonix -) 40 mg PO DAILY [facility] Last Admin: 11/14/17 10:13 Dose: 40 mg Tbo-Filgrastim (Granix -) 480 mcg SQ HS [facility] Stop: 11/15/17 22:01 Last Admin: 11/14/17 22:28 Dose: 480 mcg Thiamine HCl (Vitamin B1 -) 100 mg PO DAILY [facility] Last Admin: 11/14/17 10:13 Dose: 100 mg Trimethoprim/Sulfamethoxazole (Bactrim Ds -) 1 each PO MoWeFr@1000 [facility] Last Admin: 11/13/17 10:06 Dose: 1 each Valacyclovir HCl (Valtrex -) 500 mg PO BID [facility] Last Admin: 11/14/17 22:27 Dose: 500 mg - Objective Vital Signs: Vital Signs Temperature 98.4 F 11/15/17 06:00 Pulse Rate 80 11/15/17 06:00 Respiratory Rate 20 11/15/17 06:00 Blood Pressure 106/61 11/15/17 06:00 O2 Sat by Pulse Oximetry (%) 100 11/14/17 21:00 Constitutional: Yes: Well Nourished, No Distress, Calm Cardiovascular: Yes: Regular Rate and Rhythm Respiratory: Yes: Regular Gastrointestinal: Yes: Normal Bowel Sounds, Soft Musculoskeletal: Yes: WNL Extremities: Yes: WNL Edema: No Peripheral Pulses WNL: Yes Neurological: Yes: Alert, Oriented Psychiatric: Yes: Alert, Oriented Labs: CBC, BMP 11/15/17 06:00 INR, PTT INR 1.07 (0.83-1.09) 11/14/17 06:00 Problem List - Problems (1) Pacemaker Code(s): Z95.0 - PRESENCE OF CARDIAC PACEMAKER (2) Lymphoma Assessment/Plan: -Oncology on board -was receiving R Epoch, next treatment due 11/23/17, already scheduled at [facility] -Has TABBY PICC line -Bone scan negative Code(s): C85.90 - NON-HODGKIN LYMPHOMA, UNSPECIFIED, UNSPECIFIED SITE Qualifiers: Lymphoma type: non-Hodgkin Non-Hodgkin lymphoma type: follicular Follicular lymphoma grade: grade II Lymphoma site: lower extremity Qualified Code(s): C82.15 - Follicular lymphoma grade II, lymph nodes of inguinal region and lower limb (3) Atrial fibrillation Assessment/Plan: chronic, controlled AC contraindicated 2/2 to hx of GI bleed and anemia Code(s): I48.91 - UNSPECIFIED ATRIAL FIBRILLATION Qualifiers: Atrial fibrillation type: persistent Qualified Code(s): I48.1 - Persistent atrial fibrillation (4) Anemia Assessment/Plan: -chronic -was low on Iron, start Feosol bid -monitor trend -Hg today 8.1 -1 dose of Venofer again today Code(s): D64.9 - ANEMIA, UNSPECIFIED Qualifiers: Anemia type: other cause Other causes of anemia: other cause, not classified Qualified Code(s): D64.89 - Other specified anemias (5) Old cerebrovascular accident without late effect Assessment/Plan: -CT head negative for any new infarcts -Neurology consult Code(s): Z86.73 - PRSNL HX OF TIA (TIA), AND CEREB INFRC W/O RESID DEFICITS (6) Leg weakness Assessment/Plan: -Physical therapy -Physiatry consult Code(s): R29.898 - OTH SYMPTOMS AND SIGNS INVOLVING THE MUSCULOSKELETAL SYSTEM Qualifiers: Laterality: left Qualified Code(s): R29.898 - Other symptoms and signs involving the musculoskeletal system (7) Thrombocytopenia Assessment/Plan: -stable -monitor trend -Transfuse if plt <10 mg/dl Code(s): D69.6 - THROMBOCYTOPENIA, UNSPECIFIED Assessment/Plan see problem list
[2017-11-15] MEDS: levETIRAcetam 500 MG TABLET (FP) PO SCH ×2 (09:35→21:52)
[2017-11-15] MEDS: THIAMINE HCL 100 MG TABLET (FP) PO SCH (09:36)
[2017-11-15] MEDS: guaiFENesin/D-METHORPHAN HB 1 EACH TAB.ER.12H PO SCH ×2 (09:36→21:53)
[2017-11-15] MEDS: amLODIPine BESYLATE 2.5 MG TABLET (FP) PO SCH (09:36)
[2017-11-15] MEDS: valACYclovir HCL 500 MG TABLET (FP) PO SCH ×2 (09:36→21:52)
[2017-11-15] MEDS: FLUCONAZOLE 100 MG TABLET (UD) PO SCH (09:36)
[2017-11-15] MEDS: FOLIC ACID 1 MG TABLET (FP) PO SCH (09:36)
[2017-11-15] MEDS: PANTOPRAZOLE 40 MG TABLET (FP) PO SCH (09:36)
[2017-11-15] MEDS: BUDESONIDE/FORMETEROL FUMARATE 160/4.5 mcg INHALER IH SCH ×2 (09:37→21:52)
[2017-11-15] MEDS ORDERED: IRON SUCROSE INJECTION 300 MG in SODIUM CHLORIDE 235 ML IVPB ONE (10:30)
[2017-11-15 13:24] LABS: ANISOCYTOSIS 1+; MACROCYTOSIS 0; PLATELET ESTIMATE DECREASED
--- NOTE | 2017-11-15 18:17 | PN ---
Progress Note (short form) - Note Progress Note: Patient seen and examined No specific complaints Last Vital Signs Temp Pulse Resp BP Pulse Ox 98.2 F 80 18 96/58 100 11/15/17 13:54 11/15/17 13:54 11/15/17 13:54 11/15/17 13:54 11/15/17 09:00 Cor: RSR, No murmurs, No gallops Lungs: Clear to P&A Abd: Soft, Normal bowel sounds, No organomegaly Ext:No significant edema Labs/Meds reviewed A/P 67 y/o patient with transformed lymphoma s/p EPOCH at [facility] Normocytic anemia likely secondary to chronic GI bleed/myelosuppression from chemotherpy Monitoring CBC Transfuse as necessary 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
[2017-11-15] MEDS: TBO-FILGRASTIM 480 MCG/0.8 ML DISP.SYRIN SQ SCH (21:51)
[2017-11-15] MEDS: ATORVASTATIN CA 40 MG TABLET (FP) PO SCH (21:52)
[2017-11-16] MEDS: ALBUTEROL SO4 2.5/IPRATROPIUM 0.5 INH SOL 3 ML VIAL.NEB. NEB SCH ×4 (07:15→20:15)
[2017-11-16] MEDS: FERROUS SO4 325 MG TABLET (FP) PO SCH ×2 (08:32→17:43)
[2017-11-16] MEDS ORDERED: PT OWN MED DRAWER 7, Y5N ONE (09:45)
[2017-11-16] MEDS: FLUCONAZOLE 100 MG TABLET (UD) PO SCH (10:16)
[2017-11-16] MEDS: amLODIPine BESYLATE 2.5 MG TABLET (FP) PO SCH (10:17)
[2017-11-16] MEDS: guaiFENesin/D-METHORPHAN HB 1 EACH TAB.ER.12H PO SCH ×2 (10:17→23:34)
[2017-11-16] MEDS: valACYclovir HCL 500 MG TABLET (FP) PO SCH ×2 (10:17→23:33)
[2017-11-16] MEDS: SULFAMETHOXAZOLE/TRIMETHOPRIM 800MG/160MG D.S. TABLET PO SCH (10:17)
[2017-11-16] MEDS: levETIRAcetam 500 MG TABLET (FP) PO SCH ×2 (10:17→23:33)
[2017-11-16] MEDS: PANTOPRAZOLE 40 MG TABLET (FP) PO SCH (10:17)
[2017-11-16] MEDS: THIAMINE HCL 100 MG TABLET (FP) PO SCH (10:17)
[2017-11-16] MEDS: FOLIC ACID 1 MG TABLET (FP) PO SCH (10:17)
[2017-11-16] MEDS: BUDESONIDE/FORMETEROL FUMARATE 160/4.5 mcg INHALER IH SCH ×2 (10:18→23:34)
[2017-11-16 10:56] LABS: BASO % 0.2 % (0-2.0); EOS % 0.1 % (0-4.5); HEMATOCRIT 25.6 % (35.4-49); HEMOGLOBIN 8.4 GM/dL (11.7-16.9); MCH 28.8 pg (25.7-33.7); MCHC 32.6 g/dl (32.0-35.9); MEAN CELL VOLUME 88.2 fl (80-96); MEAN PLT VOLUME 10.8 fl (7.5-11.1); MONO % 8.6 % (3.8-10.2); NEUT % 89.1 % (42.8-82.8); PLATELET COUNT 143 K/MM3 (134-434); RBC 2.91 M/mm3 (4.00-5.60); RDW 16.9 % (11.9-15.9); WHITE BLOOD COUNT 12.5 K/mm3 (4.0-10.0)
[2017-11-16 11:13] LABS: CHLORIDE 107 mmol/L (98-107); POTASSIUM 4.2 mmol/L (3.5-5.1); SODIUM 142 mmol/L (136-145)
[2017-11-16 11:21] LABS: ANION GAP 9 MMOL/L (8-16); BILIRUBIN,TOTAL 0.2 mg/dL (0.2-1.0); BLOOD UREA NITROGEN 23 mg/dL (7-18); CALCIUM 8.6 mg/dL (8.5-10.1); CO2 26 mmol/L (21-32); CREATININE 0.6 mg/dL (0.7-1.3); GLUCOSE,RANDOM 107 mg/dL (74-106); SGOT/AST 11 U/L (15-37); SGPT/ALT 23 U/L (12-78); TOT PROT 5.9 g/dl (6.4-8.2)
[2017-11-16 11:22] LABS: ALK PHOS 105 U/L (45-117)
[2017-11-16 12:21] LABS: ANISOCYTOSIS 1+; MACROCYTOSIS 0; OVALOCYTE 1+; PLATELET ESTIMATE DECREASED; TEAR DROP CELLS 1+
--- NOTE | 2017-11-16 13:03 | PN ---
Progress Note (short form) - Note Progress Note: ID consult dictated asked to see for leukocytosis admitted 11/10 with generalized weakness, transformed lymphoma, on chemo recent discharge from [facility] had infected port that was removed and picc line placed blood cultures on admission negative was started on filgastrim for 6 doses- last dose yesterday no fevers or chills bioavr/arch replacement many years ago suspect leukocytosis is secondary to filgastrim if persisits would obtain surveillance blood cultures
--- NOTE | 2017-11-16 21:06 | PN ---
Progress Note, Physician - Current Medication List Current Medications: Active Medications Albuterol/Ipratropium (Duoneb -) 1 amp NEB RQID [facility] Last Admin: 11/16/17 20:15 Dose: 1 amp Amlodipine Besylate (Norvasc -) 2.5 mg PO DAILY [facility] Last Admin: 11/16/17 10:17 Dose: 2.5 mg Atorvastatin Calcium (Lipitor -) 40 mg PO HS [facility] Last Admin: 11/15/17 21:52 Dose: 40 mg Benzocaine/Menthol (Cepacol Lozenge -) 1 each MM PRN PRN PRN Reason: SORE THROAT Last Admin: 11/15/17 22:04 Dose: 1 each Budesonide/Formoterol Fumarate (Symbicort 160/4.5mcg -) 2 puff IH BID [facility] Last Admin: 11/16/17 10:18 Dose: 2 puff Ferrous Sulfate (Feosol -) 325 mg PO BIDWM [facility] Last Admin: 11/16/17 17:43 Dose: 325 mg Fluconazole (Diflucan -) 400 mg PO DAILY [facility] Last Admin: 11/16/17 10:16 Dose: 400 mg Folic Acid (Folic Acid -) 1 mg PO DAILY [facility] Last Admin: 11/16/17 10:17 Dose: 1 mg Guaifenesin (Mucinex Dm -) 1 tablet PO BID [facility] Last Admin: 11/16/17 10:17 Dose: 1 tablet Levetiracetam (Keppra -) 500 mg PO BID [facility] Last Admin: 11/16/17 10:17 Dose: 500 mg Pantoprazole Sodium (Protonix -) 40 mg PO DAILY [facility] Last Admin: 11/16/17 10:17 Dose: 40 mg Thiamine HCl (Vitamin B1 -) 100 mg PO DAILY [facility] Last Admin: 11/16/17 10:17 Dose: 100 mg Trimethoprim/Sulfamethoxazole (Bactrim Ds -) 1 each PO MoWeFr@1000 [facility] Last Admin: 11/16/17 10:17 Dose: 1 each Valacyclovir HCl (Valtrex -) 500 mg PO BID [facility] Last Admin: 11/16/17 10:17 Dose: 500 mg - Objective Vital Signs: Vital Signs Temperature 99.1 F 11/16/17 17:05 Pulse Rate 80 11/16/17 17:05 Respiratory Rate 20 11/16/17 17:05 Blood Pressure 104/50 11/16/17 17:05 O2 Sat by Pulse Oximetry (%) 95 11/16/17 09:00 Cardiovascular: Yes: S1, S2 Respiratory: Yes: Regular, CTA Bilaterally Gastrointestinal: Yes: Normal Bowel Sounds, Soft Labs: CBC, BMP 11/16/17 10:38 11/16/17 10:38 INR, PTT INR 1.07 (0.83-1.09) 11/14/17 06:00 Assessment/Plan - Problems (1) Pacemaker Code(s): Z95.0 - PRESENCE OF CARDIAC PACEMAKER (2) Lymphoma Assessment/Plan: -Oncology on board -was receiving R Epoch, next treatment due 11/23/17, already scheduled at [facility] -Has TABBY PICC line -Bone scan negative Code(s): C85.90 - NON-HODGKIN LYMPHOMA, UNSPECIFIED, UNSPECIFIED SITE Qualifiers: Lymphoma type: non-Hodgkin Non-Hodgkin lymphoma type: follicular Follicular lymphoma grade: grade II Lymphoma site: lower extremity Qualified Code(s): C82.15 - Follicular lymphoma grade II, lymph nodes of inguinal region and lower limb (3) Atrial fibrillation Assessment/Plan: chronic, controlled AC contraindicated 2/2 to hx of GI bleed and anemia Code(s): I48.91 - UNSPECIFIED ATRIAL FIBRILLATION Qualifiers: Atrial fibrillation type: persistent Qualified Code(s): I48.1 - Persistent atrial fibrillation (4) Anemia Assessment/Plan: -chronic -was low on Iron, start Feosol bid -monitor trend -Hg today 8.1 -1 dose of Venofer again today Code(s): D64.9 - ANEMIA, UNSPECIFIED Qualifiers: Anemia type: other cause Other causes of anemia: other cause, not classified Qualified Code(s): D64.89 - Other specified anemias (5) Old cerebrovascular accident without late effect Assessment/Plan: -CT head negative for any new infarcts -Neurology consult Code(s): Z86.73 - PRSNL HX OF TIA (TIA), AND CEREB INFRC W/O RESID DEFICITS (6) Leg weakness Assessment/Plan: -Physical therapy -Physiatry consult Code(s): R29.898 - OTH SYMPTOMS AND SIGNS INVOLVING THE MUSCULOSKELETAL SYSTEM Qualifiers: Laterality: left Qualified Code(s): R29.898 - Other symptoms and signs involving the musculoskeletal system (7) Thrombocytopenia Assessment/Plan: -stable -monitor trend -Transfuse if plt <10 mg/dl Code(s): D69.6 - THROMBOCYTOPENIA, UNSPECIFIED
[2017-11-16] MEDS: ATORVASTATIN CA 40 MG TABLET (FP) PO SCH (23:33)
[2017-11-16] MEDS: BENZOCAINE/MENTH/CETYLPYRD CL 1 EACH LOZENGE MM PRN (23:34)
--- NOTE | 2017-11-17 07:14 | CONS ---
DATE OF CONSULTATION: DATE OF DICTATION: 11/17/2017 HISTORY OF PRESENT ILLNESS: This is a 67-year-old man with a history of follicular lymphoma, recent large D-cell lymphoma, history of chronic GI bleeding, who was admitted on the with complaints of weakness and difficulty walking. He had just been discharged the prior day from [facility] where he had undergone chemotherapy. He got EPOCH from November 02 to November 06. During that admission, he had a port infection with Klebsiella; he apparently had Klebsiella bacteremia and pneumonia in the setting of neutropenia. This was all from the admitting history and physical. The patient reports his port was removed and a PICC line was placed. He was to start filgrastim for 7 days, and he came to the ER because he was weak. He has no fevers or chills. He otherwise is feeling well. He is upset because there is talk of transferring him back to [place] for further care. He does not know what he wants to do at this time. I am asked to see him because his white count is now 12,000. He has also completed a course yesterday with his last dose of filgrastim. PAST MEDICAL HISTORY: Notable for hypertension, hyperlipidemia, paroxysmal atrial fibrillation, CHF, CVA, hiatal hernia, bleeding ulcer, chronic GI bleeding, asbestosis. He has a history of bioprosthetic AVR and he has had a transverse arch repair. He has a remote history of strep endocarditis. He has a history of permanent pacemaker with recent generator change. He has a history of seizure disorder. SOCIAL HISTORY: She is a former smoker, and he lives alone. FAMILY HISTORY: There is a history of diabetes. MEDICATIONS: His current medications as an outpatient include Keppra, Valtrex, B1, Bactrim, pantoprazole, folic acid, Diflucan, filgrastim, atorvastatin, amlodipine, albuterol, and the filgrastim was to be for 7 days. REVIEW OF SYSTEMS: He feels lousy and is upset about being transferred. PHYSICAL EXAMINATION General: He is awake and alert. He has had no fevers since admission. Vital signs: Temperature is 98.6; pulse of 80, blood pressure of 98/56, respiratory rate of 18. HEENT: H is normocephalic. His eyes are anicteric. He has no thrush or ulcers. Neck: Supple. Lungs: Clear to auscultation. Heart: Regular rate and rhythm. PICC line in his right arm is without any erythema or drainage. Abdomen: Soft, nontender. Extremities: Without edema. DIAGNOSTIC DATA: White count is 12.5, hemoglobin 8.4, platelets are 143. BUN 23, creatinine 0.6. His blood cultures done on this admission are negative. Chest x-ray is normal, as well. SUMMARY: I suspect this 67-year-old man admitted with generalized weakness, transferred with lymphoma on chemotherapy, recent Klebsiella bacteremia with now negative cultures, both I assume at his prior hospital and with us with elevated white count after receiving a week of filgrastim. I suspect this is secondary to the filgrastim. If the white count persists, it would certainly be reasonable to obtain surveillance blood cultures. Would observe at this time. LYNN KHAN M.D. [id number]
[2017-11-17 07:35] LABS: BASO % 0.2 % (0-2.0); EOS % 0.1 % (0-4.5); HEMATOCRIT 22.9 % (35.4-49); HEMOGLOBIN 7.5 GM/dL (11.7-16.9); LYMPH % 2.1 % (8-40); MCH 28.9 pg (25.7-33.7); MCHC 32.7 g/dl (32.0-35.9); MEAN CELL VOLUME 88.5 fl (80-96); MEAN PLT VOLUME 9.5 fl (7.5-11.1); MONO % 6.5 % (3.8-10.2); NEUT % 91.1 % (42.8-82.8); PLATELET COUNT 118 K/MM3 (134-434); RBC 2.59 M/mm3 (4.00-5.60); RDW 17.2 % (11.9-15.9); WHITE BLOOD COUNT 10.4 K/mm3 (4.0-10.0)
[2017-11-17 07:48] LABS: ALBUMIN 2.6 g/dl (3.4-5.0); ANION GAP 11 MMOL/L (8-16); BLOOD UREA NITROGEN 19 mg/dL (7-18); CALCIUM 7.9 mg/dL (8.5-10.1); CHLORIDE 109 mmol/L (98-107); CO2 25 mmol/L (21-32); GLUCOSE,RANDOM 93 mg/dL (74-106); POTASSIUM 3.5 mmol/L (3.5-5.1); SODIUM 145 mmol/L (136-145)
[2017-11-17 07:52] LABS: ALK PHOS 102 U/L (45-117); BILIRUBIN,TOTAL 0.2 mg/dL (0.2-1.0); CREATININE 0.5 mg/dL (0.7-1.3); SGOT/AST 12 U/L (15-37); SGPT/ALT 18 U/L (12-78); TOT PROT 5.2 g/dl (6.4-8.2)
[2017-11-17] MEDS: ALBUTEROL SO4 2.5/IPRATROPIUM 0.5 INH SOL 3 ML VIAL.NEB. NEB SCH ×4 (08:27→20:59)
[2017-11-17] MEDS ORDERED: PT OWN MED DRAWER 7, Y5N ONE ×2 (09:34→18:57)
--- NOTE | 2017-11-17 09:39 | PN ---
Physical Exam: SUBJECTIVE: Patient seen and examined at bed side this morning. No complaints. Dizziness and weakness has resolved. Denies chest pain, sob, cough, palpitation , abdominal pain, nausea or vomiting. No acute overnight events. OBJECTIVE: Vital Signs Period Temp Pulse Resp BP Sys/Lugo Pulse Ox Last 24 Hr 98.6 F-99.1 F 80-81 18-20 98-108/50-65 96 GENERAL: Elderly male, sitting comfortably in a chair, awake, alert, and fully oriented, in no acute distress. HEAD: Normal with no signs of trauma. EYES: EOM intact, no pallor or icterus. ENT: Ears normal, moist mucous membranes. NECK: Trachea midline, full range of motion, supple. CHEST: Gayle cath recomed from the right side, area looks clean. RIGHT UPPER EXTREMITY: PICC Line in place, surrounding area is clean. LUNGS: B/L Breath sounds equal, clear to auscultation bilaterally, no accessory muscle use. HEART: Regular rate and rhythm, S1, S2 with soft systolic murmur. ABDOMEN: Soft, nontender, nondistended, normoactive bowel sounds, no guarding, no rebound, no hepatosplenomegaly, no masses. EXTREMITIES: 2+ pulses, warm, well-perfused, no edema. NEUROLOGICAL: No facial droop. Normal speech, gait not observed. PSYCH: Normal mood, normal affect. SKIN: Warm, dry, normal turgor, no rashes or lesions noted Laboratory Results - last 24 hr 11/16/17 11/16/17 11/17/17 10:38 10:38 06:00 WBC 12.5 H 10.4 H RBC 2.91 L 2.59 L Hgb 8.4 L 7.5 L Hct 25.6 L 22.9 L MCV 88.2 88.5 MCH 28.8 28.9 MCHC 32.6 32.7 RDW 16.9 H 17.2 H Plt Count 143 D 118 L MPV 10.8 9.5 D Absolute Neuts (auto) 11.1 H 9.5 H Neutrophils % 89.1 H 91.1 H Neutrophils % (Manual) 81.8 Band Neutrophils % 4.1 Lymphocytes % 2.0 L D 2.1 L Lymphocytes % (Manual) 2.0 L D Monocytes % 8.6 6.5 Monocytes % (Manual) 8 Eosinophils % 0.1 0.1 Eosinophils % (Manual) 0.0 Basophils % 0.2 0.2 Basophils % (Manual) 0.0 Myelocytes % (Man) 2 D Promyelocytes % (Man) 1 D Blast Cells % (Manual) 0 Nucleated RBC % 0 0 Metamyelocytes 1 D Hypochromia 0 Platelet Estimate Decreased Polychromasia 1+ Poikilocytosis 2+ Anisocytosis 1+ Microcytosis 1+ Macrocytosis 0 Tear Drop Cells 1+ Ovalocytes 1+ Sodium 142 Potassium 4.2 Chloride 107 Carbon Dioxide 26 Anion Gap 9 BUN 23 H Creatinine 0.6 L Creat Clearance w eGFR > 60 Random Glucose 107 H D Calcium 8.6 Total Bilirubin 0.2 AST 11 L ALT 23 Alkaline Phosphatase 105 D Total Protein 5.9 L Albumin 3.0 L 11/17/17 06:00 WBC RBC Hgb Hct MCV MCH MCHC RDW Plt Count MPV Absolute Neuts (auto) Neutrophils % Neutrophils % (Manual) Band Neutrophils % Lymphocytes % Lymphocytes % (Manual) Monocytes % Monocytes % (Manual) Eosinophils % Eosinophils % (Manual) Basophils % Basophils % (Manual) Myelocytes % (Man) Promyelocytes % (Man) Blast Cells % (Manual) Nucleated RBC % Metamyelocytes Hypochromia Platelet Estimate Polychromasia Poikilocytosis Anisocytosis Microcytosis Macrocytosis Tear Drop Cells Ovalocytes Sodium 145 Potassium 3.5 Chloride 109 H Carbon Dioxide 25 Anion Gap 11 BUN 19 H Creatinine 0.5 L Creat Clearance w eGFR > 60 Random Glucose 93 Calcium 7.9 L Total Bilirubin 0.2 AST 12 L ALT 18 D Alkaline Phosphatase 102 Total Protein 5.2 L Albumin 2.6 L Active Medications Generic Name Dose Route Start Last Admin Trade Name Freq PRN Reason Stop Dose Admin Albuterol/Ipratropium 1 amp 11/11/17 12:00 11/17/17 08:27 Duoneb - NEB 1 amp RQID DIANE Administration Amlodipine Besylate 2.5 mg 11/11/17 10:00 11/16/17 10:17 Norvasc - PO 2.5 mg DAILY DIANE Administration Atorvastatin Calcium 40 mg 11/10/17 22:00 11/16/17 23:33 Lipitor - PO 40 mg HS DIANE Administration Benzocaine/Menthol 1 each 11/11/17 11:47 11/16/17 23:34 Cepacol Lozenge - MM 1 each PRN PRN Administration SORE THROAT Budesonide/Formoterol Fumarate 2 puff 11/11/17 13:00 11/16/17 23:34 Symbicort 160/4.5mcg - IH 2 puff BID DIANE Administration Ferrous Sulfate 325 mg 11/11/17 17:30 11/16/17 17:43 Feosol - PO 325 mg BIDWM DIANE Administration Fluconazole 400 mg 11/11/17 10:00 11/16/17 10:16 Diflucan - PO 400 mg DAILY DIANE Administration Folic Acid 1 mg 11/11/17 10:00 11/16/17 10:17 Folic Acid - PO 1 mg DAILY DIANE Administration Guaifenesin 1 tablet 11/11/17 13:00 11/16/17 23:34 Mucinex Dm - PO 1 tablet BID DIANE Administration Levetiracetam 500 mg 11/10/17 22:00 11/16/17 23:33 Keppra - PO 500 mg BID DIANE Administration Pantoprazole Sodium 40 mg 11/11/17 10:00 11/16/17 10:17 Protonix - PO 40 mg DAILY DIANE Administration Thiamine HCl 100 mg 11/11/17 10:00 11/16/17 10:17 Vitamin B1 - PO 100 mg DAILY DIANE Administration Trimethoprim/Sulfamethoxazole 1 each 11/11/17 10:00 11/16/17 10:17 Bactrim Ds - PO 1 each MoWeFr@1000 DIANE Administration Valacyclovir HCl 500 mg 11/10/17 22:00 11/16/17 23:33 Valtrex - PO 500 mg BID DIANE Administration Patient is a 67 year Male with PMH HTN, HLD, AFIB, CHF, tAVR, 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 ASSESSMENT: Follicular lymphoma-transformed, has been getting chemo at [facility] Leukocytosis-Improving Hypertension Hyperlipidemia Atrial Fibrillation CHF TAVR CVA (06/2015) with mild left hemiparesis hiatal hernia bleeding ulcer, chronic GI bleed asbestosis seizure disorder Plan: Follicular lymphoma Patient has been undergoing chemo at [facility]. Has an appointment for chemo for 11/23. Plan is to continue his therapy at [facility]. Can be discharged from Heme/Onc standpoint. Awaiting SNF placement as patient , 11/13/2017 Max distance 25ft with assistance. s/p EPOCH (without vincristine) 11/02-11/06 Completed filgristam on thursday 11/16 cont bactrim, valtrex, and diflucan for prophylaxis Normocytic anemia likely secondary to chronic GI bleed H/H 8.4/25.6---> 7.5/22.9 Transfuse 1 U of PRBC today to maintain HCT > 25. Recheck CBC in AM. Transfuse if Hb is < 7gm/dl or any active bleeding. Protonix PO Rest as per primary. Plan of care explained to the patient. He verbalized understanding. Case discussed with Dr. Espinosa. Dispo: Thank you for the consultative opportunity. We will continue to follow. Visit type - Emergency Visit Emergency Visit: Yes ED Registration Date: 11/10/17 Care time: The patient presented to the Emergency Department on the above date and was hospitalized for further evaluation of their emergent condition. - New Patient This patient is new to me today: No - Critical Care Critical Care patient: No - Discharge Referral Referred to [facility] Med P.C.: No
[2017-11-17] MEDS: amLODIPine BESYLATE 2.5 MG TABLET (FP) PO SCH (09:40)
[2017-11-17] MEDS: FOLIC ACID 1 MG TABLET (FP) PO SCH (09:40)
[2017-11-17] MEDS: valACYclovir HCL 500 MG TABLET (FP) PO SCH (09:40)
[2017-11-17] MEDS: levETIRAcetam 500 MG TABLET (FP) PO SCH ×2 (09:40→22:01)
[2017-11-17] MEDS: FERROUS SO4 325 MG TABLET (FP) PO SCH ×2 (09:40→17:26)
[2017-11-17] MEDS: FLUCONAZOLE 100 MG TABLET (UD) PO SCH (09:40)
[2017-11-17] MEDS: THIAMINE HCL 100 MG TABLET (FP) PO SCH (09:40)
[2017-11-17] MEDS: PANTOPRAZOLE 40 MG TABLET (FP) PO SCH (09:40)
[2017-11-17] MEDS: guaiFENesin/D-METHORPHAN HB 1 EACH TAB.ER.12H PO SCH ×2 (09:41→22:02)
[2017-11-17] MEDS: BUDESONIDE/FORMETEROL FUMARATE 160/4.5 mcg INHALER IH SCH ×2 (09:41→22:01)
[2017-11-17 10:37] LABS: ANISOCYTOSIS 1+; MACROCYTOSIS 1+; PLATELET ESTIMATE DECREASED
--- NOTE | 2017-11-17 15:56 | DS ---
Physical Examination Vital Signs: Vital Signs Temperature 98.2 F 11/17/17 14:27 Pulse Rate 80 11/17/17 14:27 Respiratory Rate 20 11/17/17 14:27 Blood Pressure 100/52 11/17/17 14:27 O2 Sat by Pulse Oximetry (%) 96 11/17/17 09:00 Constitutional: Yes: No Distress Eyes: Yes: WNL HENT: Yes: WNL Neck: Yes: WNL Cardiovascular: Yes: Pulse Irregular Respiratory: Yes: WNL Gastrointestinal: Yes: WNL Renal/: Yes: WNL Musculoskeletal: Yes: Muscle Weakness Extremities: Yes: WNL Edema: Yes Peripheral Pulses WNL: Yes Integumentary: Yes: Other Wound/Incision: Yes: Dressing Dry and Intact Neurological: Yes: Pre-Existing Deficit, Unsteady Gait ...Motor Strength: LLE, RLE Psychiatric: Yes: WNL Labs: CBC, BMP 11/17/17 06:00 11/17/17 06:00 Discharge Summary Reason For Visit: WEAKNESS OF LOWER EXTREMITY Current Active Problems Leg weakness (Acute) Thrombocytopenia (Acute) Unable to bear weight (Acute) Procedures: Principal: CT SCAN/LABS/TRANSFUSIONS Hospital Course: WELL KNOWN TO OUT SERVCIE ADMITTED WITH ANEMIA GI BLEED, BIPROSTHETIC HEART VALVE, FOLLICULAR LYMPHOMA, COPD, WITH ANEMIA, UNDER CHEMOTHERAPY AT [facility] WILL NEED SNF PLACEMENT UNTIL NEXT WEEK FOR CONTINUITY OF CARE WITH ONCOLOGY Condition: Fair - Instructions Diet, Activity, Other Instructions: LOW SALT TRANSFER TO [facility] FOR CHEMOTHERAPY AFTER SNF Referrals: Viridiana Monet MD [Primary Care Provider] - Disposition: LONG-TERM FACILITY - Home Medications Comprehensive Discharge Medication List: Ambulatory Orders Atorvastatin Ca [Lipitor] 40 mg PO HS 01/12/17 levETIRAcetam [Keppra -] 500 mg PO BID tablet 02/24/17 Albuterol Sulfate Inhaler - [Ventolin Hfa Inhaler -] 2 inh PO QID PRN 11/10/17 Amlodipine Besylate 2.5 mg PO DAILY 11/10/17 Filgrastim [Neupogen] 480 mcg SQ HS 11/10/17 Fluconazole [Diflucan -] 400 mg PO DAILY 11/10/17 Folic Acid 1 mg PO DAILY 11/10/17 Pantoprazole Sodium 40 mg PO DAILY 11/10/17 Sulfamethoxazole/Trimethoprim [Bactrim Ds -] 1 tab PO ASDIR 11/10/17 Thiamine HCl [B-1] 100 mg PO DAILY 11/10/17 Valacyclovir HCl [Valtrex] 500 mg PO Q12H 11/10/17
--- NOTE | 2017-11-17 16:33 | PN ---
Teaching Attending Note Name of Resident: Dayana Beard ATTENDING PHYSICIAN STATEMENT I saw and evaluated the patient. I reviewed the resident's note and discussed the case with the resident. I agree with the resident's findings and plan as documented. SUBJECTIVE:Patient seen and examined Discussed social service situation and oncologic situation. Best place for chemotherapy in view of risk of bleeding is at [place]. Need for rehab is also apparent. Patient therefore to be discharged to rehab facility and to follow up with [place] for chemotherapy thereafter. Last Vital Signs Temp Pulse Resp BP Pulse Ox 98.2 F 80 20 100/52 96 11/17/17 14:27 11/17/17 14:27 11/17/17 14:27 11/17/17 14:27 11/17/17 09:00 HEENT: KELLIE, EOM Intact Oropharynx: No thrush, No mucositis Cor: RSR, No murmurs, No gallops Lungs:diminished breath sounds bilaterally Abd: Soft, Normal bowel sounds, No organomegaly Ext:LE edema Skin: No rashes, Integument intact CBC, BMP 11/17/17 06:00 11/17/17 06:00 Current Medications Generic Name Dose Route Start Last Admin Trade Name Freq PRN Reason Stop Dose Admin Albuterol/Ipratropium 1 amp 11/11/17 12:00 11/17/17 12:23 Duoneb - NEB 1 amp RQID DIANE Administration Amlodipine Besylate 2.5 mg 11/11/17 10:00 11/17/17 09:40 Norvasc - PO 2.5 mg DAILY DIANE Administration Atorvastatin Calcium 40 mg 11/10/17 22:00 11/16/17 23:33 Lipitor - PO 40 mg HS DIANE Administration Benzocaine/Menthol 1 each 11/11/17 11:47 11/16/17 23:34 Cepacol Lozenge - MM 1 each PRN PRN Administration SORE THROAT Budesonide/Formoterol Fumarate 2 puff 11/11/17 13:00 11/17/17 09:41 Symbicort 160/4.5mcg - IH 2 puff BID DIANE Administration Ferrous Sulfate 325 mg 11/11/17 17:30 11/17/17 09:40 Feosol - PO 325 mg BIDWM DIANE Administration Fluconazole 400 mg 11/11/17 10:00 11/17/17 09:40 Diflucan - PO 400 mg DAILY DIANE Administration Folic Acid 1 mg 11/11/17 10:00 11/17/17 09:40 Folic Acid - PO 1 mg DAILY DIANE Administration Guaifenesin 1 tablet 11/11/17 13:00 11/17/17 09:41 Mucinex Dm - PO 1 tablet BID DIANE Administration Levetiracetam 500 mg 11/10/17 22:00 11/17/17 09:40 Keppra - PO 500 mg BID DIANE Administration Pantoprazole Sodium 40 mg 11/11/17 10:00 11/17/17 09:40 Protonix - PO 40 mg DAILY DIANE Administration Thiamine HCl 100 mg 11/11/17 10:00 11/17/17 09:40 Vitamin B1 - PO 100 mg DAILY DIANE Administration Trimethoprim/Sulfamethoxazole 1 each 11/11/17 10:00 11/16/17 10:17 Bactrim Ds - PO 1 each MoWeFr@1000 DIANE Administration Valacyclovir HCl 500 mg 11/10/17 22:00 11/17/17 09:40 Valtrex - PO 500 mg BID DIANE Administration Impression: transformed lymphoma For transfusion of packed cells and then for transfer to SNF. OBJECTIVE: ASSESSMENT AND PLAN:
[2017-11-17] MEDS: BENZOCAINE/MENTH/CETYLPYRD CL 1 EACH LOZENGE MM PRN (19:00)
[2017-11-17] MEDS: ATORVASTATIN CA 40 MG TABLET (FP) PO SCH (22:01)
[2017-11-18] MEDS: BENZOCAINE/MENTH/CETYLPYRD CL 1 EACH LOZENGE MM PRN ×3 (06:11→22:22)
[2017-11-18] MEDS: ALBUTEROL SO4 2.5/IPRATROPIUM 0.5 INH SOL 3 ML VIAL.NEB. NEB SCH ×4 (07:47→22:00)
[2017-11-18 08:00] LABS: BASO % 0.4 % (0-2.0); EOS % 0.1 % (0-4.5); HEMATOCRIT 24.6 % (35.4-49); HEMOGLOBIN 8.2 GM/dL (11.7-16.9); LYMPH % 2.5 % (8-40); MCH 29.3 pg (25.7-33.7); MCHC 33.2 g/dl (32.0-35.9); MEAN CELL VOLUME 88.2 fl (80-96); MEAN PLT VOLUME 9.3 fl (7.5-11.1); MONO % 7.7 % (3.8-10.2); NEUT % 89.3 % (42.8-82.8); PLATELET COUNT 139 K/MM3 (134-434); RBC 2.79 M/mm3 (4.00-5.60); RDW 16.9 % (11.9-15.9); WHITE BLOOD COUNT 8.3 K/mm3 (4.0-10.0)
[2017-11-18 08:06] LABS: ANION GAP 10 MMOL/L (8-16); BLOOD UREA NITROGEN 18 mg/dL (7-18); CALCIUM 8.2 mg/dL (8.5-10.1); CHLORIDE 110 mmol/L (98-107); CO2 25 mmol/L (21-32); CREATININE 0.4 mg/dL (0.7-1.3); GLUCOSE,RANDOM 93 mg/dL (74-106); POTASSIUM 3.6 mmol/L (3.5-5.1); SODIUM 145 mmol/L (136-145)
[2017-11-18] MEDS ORDERED: FUROSEMIDE 40 MG/4 ML INJECTABLE VIAL IVPUSH ONE ×2 (09:33→14:45)
[2017-11-18] MEDS: FOLIC ACID 1 MG TABLET (FP) PO SCH (09:43)
[2017-11-18] MEDS: levETIRAcetam 500 MG TABLET (FP) PO SCH ×2 (09:43→22:15)
[2017-11-18] MEDS: THIAMINE HCL 100 MG TABLET (FP) PO SCH (09:43)
[2017-11-18] MEDS: PANTOPRAZOLE 40 MG TABLET (FP) PO SCH (09:43)
[2017-11-18] MEDS: SULFAMETHOXAZOLE/TRIMETHOPRIM 800MG/160MG D.S. TABLET PO SCH (09:43)
[2017-11-18] MEDS: FERROUS SO4 325 MG TABLET (FP) PO SCH ×2 (09:43→17:54)
[2017-11-18] MEDS: amLODIPine BESYLATE 2.5 MG TABLET (FP) PO SCH (11:04)
[2017-11-18 11:31] VITALS: BMI 27.9
[2017-11-18] MEDS ORDERED: PT OWN MED DRAWER 7, Y5N ONE ×2 (12:57→12:58)
[2017-11-18] MEDS: guaiFENesin/D-METHORPHAN HB 1 EACH TAB.ER.12H PO SCH ×2 (13:10→22:19)
[2017-11-18 13:45] LABS: ANISOCYTOSIS 1+; MACROCYTOSIS 1+; OVALOCYTE 1+; PLATELET ESTIMATE DECREASED
[2017-11-18] MEDS: BUDESONIDE/FORMETEROL FUMARATE 160/4.5 mcg INHALER IH SCH ×2 (14:15→22:20)
[2017-11-18 17:28] LABS: HEMATOCRIT 29.5 % (35.4-49); HEMOGLOBIN 9.9 GM/dL (11.7-16.9); MCH 29.7 pg (25.7-33.7); MCHC 33.5 g/dl (32.0-35.9); MEAN CELL VOLUME 88.6 fl (80-96); MEAN PLT VOLUME 9.9 fl (7.5-11.1); PLATELET COUNT 169 K/MM3 (134-434); RBC 3.33 M/mm3 (4.00-5.60); RDW 17.7 % (11.9-15.9); WHITE BLOOD COUNT 8.3 K/mm3 (4.0-10.0)
[2017-11-18] MEDS ORDERED: ACETAMINOPHEN 325 MG TABLET (FP) PO ONE (17:30)
--- NOTE | 2017-11-18 17:53 | PN ---
Progress Note (short form) - Note Progress Note: Patient seen and examined Received packed cells and developed temp to 101.3 Cultures ordered ? delayed transfusion reaction Last Vital Signs Temp Pulse Resp BP Pulse Ox 101.3 F H 81 20 102/51 95 11/18/17 17:35 11/18/17 14:07 11/18/17 14:07 11/18/17 14:07 11/18/17 09:00 HEENT: KELLIE, EOM Intact Oropharynx: No thrush, No mucositis Cor: RSR, No murmurs, No gallops Lungs: scattered rhonchi Abd: Soft, Normal bowel sounds, No organomegaly Ext:No significant edema Skin: No rashes, Integument intact CBC, BMP 11/18/17 16:15 11/18/17 06:00 Current Medications Generic Name Dose Route Start Last Admin Trade Name Freq PRN Reason Stop Dose Admin Albuterol/Ipratropium 1 amp 11/11/17 12:00 11/18/17 16:10 Duoneb - NEB 1 amp RQID DIANE Administration Amlodipine Besylate 2.5 mg 11/11/17 10:00 11/18/17 11:04 Norvasc - PO Not Given DAILY DIANE Atorvastatin Calcium 40 mg 11/10/17 22:00 11/17/17 22:01 Lipitor - PO 40 mg HS DIANE Administration Benzocaine/Menthol 1 each 11/11/17 11:47 11/18/17 13:10 Cepacol Lozenge - MM 1 each PRN PRN Administration SORE THROAT Budesonide/Formoterol Fumarate 2 puff 11/11/17 13:00 11/18/17 14:15 Symbicort 160/4.5mcg - IH 2 puff BID DIANE Administration Ferrous Sulfate 325 mg 11/11/17 17:30 11/18/17 09:43 Feosol - PO 325 mg BIDWM DIANE Administration Folic Acid 1 mg 11/11/17 10:00 11/18/17 09:43 Folic Acid - PO 1 mg DAILY DIANE Administration Guaifenesin 1 tablet 11/11/17 13:00 11/18/17 13:10 Mucinex Dm - PO 1 tablet BID DIANE Administration Levetiracetam 500 mg 11/10/17 22:00 11/18/17 09:43 Keppra - PO 500 mg BID DIANE Administration Pantoprazole Sodium 40 mg 11/11/17 10:00 11/18/17 09:43 Protonix - PO 40 mg DAILY DIANE Administration Thiamine HCl 100 mg 11/11/17 10:00 11/18/17 09:43 Vitamin B1 - PO 100 mg DAILY DIANE Administration Trimethoprim/Sulfamethoxazole 1 each 11/11/17 10:00 11/18/17 09:43 Bactrim Ds - PO 1 each MoWeFr@1000 DIANE Administration Impression: transformed lymphoma\ S/P chemotherapy s/p GI bleeding S/p transfusion Fever- post transfusion Plan: culture Elie Observe. [facility] facility.
--- NOTE | 2017-11-18 17:55 | DS ---
Physical Examination Vital Signs: Vital Signs Temperature 101 F H 11/18/17 17:35 Pulse Rate 81 11/18/17 14:07 Respiratory Rate 20 11/18/17 14:07 Blood Pressure 102/51 11/18/17 14:07 O2 Sat by Pulse Oximetry (%) 95 11/18/17 09:00 Constitutional: Yes: Mild Distress Eyes: Yes: WNL HENT: Yes: WNL Neck: Yes: WNL Cardiovascular: Yes: Pulse Irregular Respiratory: Yes: On Nasal O2 Gastrointestinal: Yes: WNL Renal/: Yes: WNL Musculoskeletal: Yes: Muscle Weakness Extremities: Yes: Other Edema: Yes Peripheral Pulses WNL: Yes Integumentary: Yes: WNL Wound/Incision: Yes: Clean/Dry Neurological: Yes: Pre-Existing Deficit ...Motor Strength: LLE, RLE Psychiatric: Yes: WNL Labs: CBC, BMP 11/18/17 16:15 11/18/17 06:00 Discharge Summary Reason For Visit: WEAKNESS OF LOWER EXTREMITY Current Active Problems Leg weakness (Acute) Thrombocytopenia (Acute) Unable to bear weight (Acute) Procedures: Principal: TRANSFUSED PRBC/HEAD CT/CAROTID DOPPLER Hospital Course: ADMITTED GI BLEED WORSENING ANEMIA, TRANSFUSED AND TREATED WILL NEED SNF PLACEMENT UNTIL TRANSFER TO [facility] FOR CHEMOTHERAPY Condition: Fair - Instructions Diet, Activity, Other Instructions: LOW SALT TRANSFER TO [facility] FOR CHEMOTHERAPY AFTER SNF Referrals: Viridiana Monet MD [Primary Care Provider] - Disposition: RETIREMENT FACILITY - Home Medications Comprehensive Discharge Medication List: Ambulatory Orders Atorvastatin Ca [Lipitor] 40 mg PO HS 01/12/17 levETIRAcetam [Keppra -] 500 mg PO BID tablet 02/24/17 Albuterol Sulfate Inhaler - [Ventolin Hfa Inhaler -] 2 inh PO QID PRN 11/10/17 Amlodipine Besylate 2.5 mg PO DAILY 11/10/17 Filgrastim [Neupogen] 480 mcg SQ HS 11/10/17 Fluconazole [Diflucan -] 400 mg PO DAILY 11/10/17 Folic Acid 1 mg PO DAILY 11/10/17 Pantoprazole Sodium 40 mg PO DAILY 11/10/17 Sulfamethoxazole/Trimethoprim [Bactrim Ds -] 1 tab PO ASDIR 11/10/17 Thiamine HCl [B-1] 100 mg PO DAILY 11/10/17 Valacyclovir HCl [Valtrex] 500 mg PO Q12H 11/10/17
[2017-11-18 19:01] LABS: ANISOCYTOSIS 1+; MACROCYTOSIS 1+; OVALOCYTE 1+
[2017-11-18 19:02] LABS: PLATELET ESTIMATE ADEQUATE; TOXIC GRANULATION 1+
[2017-11-18 20:58] LABS: ALBUMIN 2.9 g/dl (3.4-5.0); ALK PHOS 119 U/L (45-117); ANION GAP 9 MMOL/L (8-16); BILIRUBIN,TOTAL 0.4 mg/dL (0.2-1.0); BLOOD UREA NITROGEN 17 mg/dL (7-18); CALCIUM 8.4 mg/dL (8.5-10.1); CHLORIDE 109 mmol/L (98-107); CO2 28 mmol/L (21-32); CREATININE 0.6 mg/dL (0.7-1.3); GLUCOSE,RANDOM 101 mg/dL (74-106); POTASSIUM 4.2 mmol/L (3.5-5.1); SGOT/AST 18 U/L (15-37); SGPT/ALT 23 U/L (12-78); SODIUM 146 mmol/L (136-145); TOT PROT 5.9 g/dl (6.4-8.2)
[2017-11-18 21:06] LABS: URINE APPEARANCE CLEAR; URINE BILIRUBIN NEGATIVE (<2.0 mg/dL); URINE COLOR LTYELLOW; URINE GLUCOSE (UA) NEGATIVE (NEGATIVE); URINE KETONE NEGATIVE (NEGATIVE); URINE LEUK ESTERASE TRACE (NEGATIVE); URINE NITRITE POSITIVE (NEGATIVE); URINE PROTEIN NEGATIVE (NEGATIVE); URINE UROBILINOGEN NEGATIVE mg/dL (0.2-1.0)
[2017-11-18 21:15] LABS: EPI CELLS RARE /HPF (FEW); URINE BACTERIA RARE /hpf (NONE SEEN); URINE MUCUS RARE
[2017-11-18] MEDS: ATORVASTATIN CA 40 MG TABLET (FP) PO SCH (22:15)
[2017-11-19] MEDS: BENZOCAINE/MENTH/CETYLPYRD CL 1 EACH LOZENGE MM PRN ×2 (05:56→09:19)
[2017-11-19] MEDS: ALBUTEROL SO4 2.5/IPRATROPIUM 0.5 INH SOL 3 ML VIAL.NEB. NEB SCH ×3 (07:30→15:31)
[2017-11-19] MEDS ORDERED: PT OWN MED DRAWER 7, Y5N ONE (09:12)
[2017-11-19] MEDS: BUDESONIDE/FORMETEROL FUMARATE 160/4.5 mcg INHALER IH SCH (09:16)
[2017-11-19] MEDS: amLODIPine BESYLATE 2.5 MG TABLET (FP) PO SCH (09:16)
[2017-11-19] MEDS: PANTOPRAZOLE 40 MG TABLET (FP) PO SCH (09:16)
[2017-11-19] MEDS: FOLIC ACID 1 MG TABLET (FP) PO SCH (09:16)
[2017-11-19] MEDS: guaiFENesin/D-METHORPHAN HB 1 EACH TAB.ER.12H PO SCH (09:16)
[2017-11-19] MEDS: THIAMINE HCL 100 MG TABLET (FP) PO SCH (09:16)
[2017-11-19] MEDS: levETIRAcetam 500 MG TABLET (FP) PO SCH (09:16)
[2017-11-19] MEDS: FERROUS SO4 325 MG TABLET (FP) PO SCH (09:16)
[2017-11-19 09:21] VITALS: PULSE 80
[2017-11-19 14:09] LABS: HEMATOCRIT 29.6 % (35.4-49); HEMOGLOBIN 9.8 GM/dL (11.7-16.9); MCH 29.4 pg (25.7-33.7); MCHC 33.1 g/dl (32.0-35.9); MEAN CELL VOLUME 88.7 fl (80-96); PLATELET COUNT 181 K/MM3 (134-434); RBC 3.34 M/mm3 (4.00-5.60); RDW 18.4 % (11.9-15.9); WHITE BLOOD COUNT 7.6 K/mm3 (4.0-10.0)
[2017-11-19 14:32] VITALS: BP 124/69; TEMP 98.6
== END 2017-11-19 15:58 | DRG 841 ==
LOC: JER 14:51 → JERBED 17:09 → J7W 20:18 → OBSVTOIN 21:15
PROVIDERS: ADMIT Family Medicine; ATTEND Family Medicine
PROC: 30233N1 Transfusion of Nonautologous Red Blood Cells into Peripheral Vein, Percutaneous Approach (ICD-10-PCS; principal; 2017-11-11)
DX: C83.30 Diffuse large B-cell lymphoma, unspecified site (principal); I69.354 Hemiplegia and hemiparesis following cerebral infarction affecting left non-dominant side; G40.89 Other seizures; C82.90 Follicular lymphoma, unspecified, unspecified site; K92.2 Gastrointestinal hemorrhage, unspecified; J44.9 Chronic obstructive pulmonary disease, unspecified; I50.9 Heart failure, unspecified; I11.0 Hypertensive heart disease with heart failure; Z95.0 Presence of cardiac pacemaker; Z95.4 Presence of other heart-valve replacement; Z87.891 Personal history of nicotine dependence; I48.91 Unspecified atrial fibrillation; Z87.11 Personal history of peptic ulcer disease; D50.0 Iron deficiency anemia secondary to blood loss (chronic); E78.5 Hyperlipidemia, unspecified; D64.9 Anemia, unspecified; Z77.090 Contact with and (suspected) exposure to asbestos; D69.6 Thrombocytopenia, unspecified; R50.84 Febrile nonhemolytic transfusion reaction
CPT/HCPCS: 36415; 36430; 36511; 70450-TC; 71045-TC-FY; 78306-TC; 80048; 80053; 81003; 81015; 82272; 82550; 82607; 82728; 82746; 83540; 83550; 83605; 83735; 84100; 84439; 84443; 84484; 85025; 85027; 85610; 85730; 86078; 86850; 86900; 86901; 86922; 87040; 87086; 87186; 93005; 93010; 93880-TC; 94640; 96365; 97116-GP; 97161-GP; 99284-25; A9503; G0378; J1447; J1756; J7620; P9038; P9058

== ENCOUNTER 2018-05-26 11:49 | Inpatient (IN) | payer OTHER ==
--- NOTE | 2018-05-26 13:53 | PDOC ---
Attending Attestation - HPI HPI: 05/26/18 13:53 68 year old male with a significant past medical history of COPD, follicular lymphoma (last chemotherapy tx Feb 2018; pending PET scan at [facility]), anemia, prosthetic heart valve, and pacemaker placement (last changed Feb 2017) who presents to the emergency department via ems with complaint of generalized, full-body weakness for the past 3 days. He reprots associated loss of appetite and intermittent shortness of breath. He denies chest pain, palpitations, dizziness. He denies sick contacts. He denies urinary or bowel changes. <Nola Dumont - Last Filed: 05/26/18 13:53> - Resident Resident Name: Roger Hobbs - ED Attending Attestation I have performed the following: I have examined & evaluated the patient, The case was reviewed & discussed with the resident, I agree w/resident's findings & plan, Exceptions are as noted - Physicial Exam PE: 05/26/18 16:28 Patient is awake and alert, frail-appearing, in no distress Normocephalic and atraumatic PERRLA, EOMI, conjunctivae were pale CTA RRR, prominent second heart sound is identified Abdomen is protuberant, extensive superficial veins are identified; a soft tissue masses palpated in the right upper quadrant; bowel sounds are decreased in all 4 quadrants; minimal right upper quadrant tenderness is identified; - Medical Decision Making 05/26/18 16:29 Patient is a 68-year-old male with multiple comorbidities, history of follicular lymphoma who presents with generalized weakness and malaise. Differential diagnoses includes infectious process versus worsening malignancy versus electrolyte abnormalities versus hyperammonemia related to the liver failure. Will obtain CBC/CMP/cardiac enzymes/melena/UA/urine culture. Will obtain CT of abdomen and pelvis. Will hydrate. Likely admission. <Mateo Abreu - Last Filed: 05/26/18 16:30> Attestations - Attestations 05/26/18 13:55 Documentation prepared by Nola Dumont, acting as medical laboratory scientist for Mateo Abreu MD <Nola Dumont - Last Filed: 05/26/18 13:53>
--- NOTE | 2018-05-26 13:53 | PDOC ---
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 Per the patient, he has had increased weakness concurrent with frustration on the status of his cancer progression. The patient does not have new pain with only pain complaint of chronic epigastric pain without radiation. EMS was called by the this morning due to inability to rise out of bed. Endorses the following: SOB, poor appetite. Oncologist: Dr. Espinosa Allergies: NKDA Social: Denies tobacco, alcohol, and substance abuse. Past History - Past Medical History Allergies/Adverse Reactions: Allergies Allergy/AdvReac Type Severity Reaction Status Date / Time No Known Drug Allergies Allergy Verified 05/26/18 11:57 Home Medications: Ambulatory Orders Atorvastatin Ca [Lipitor] 40 mg PO HS 01/12/17 levETIRAcetam [Keppra -] 500 mg PO BID tablet 02/24/17 Albuterol Sulfate Inhaler - [Ventolin Hfa Inhaler -] 2 inh PO QID PRN 11/10/17 Amlodipine Besylate 2.5 mg PO DAILY 11/10/17 Filgrastim [Neupogen] 480 mcg SQ HS 11/10/17 Fluconazole [Diflucan -] 400 mg PO DAILY 11/10/17 Folic Acid 1 mg PO DAILY 11/10/17 Pantoprazole Sodium 40 mg PO DAILY 11/10/17 Sulfamethoxazole/Trimethoprim [Bactrim Ds -] 1 tab PO ASDIR 11/10/17 Thiamine HCl [B-1] 100 mg PO DAILY 11/10/17 Valacyclovir HCl [Valtrex] 500 mg PO Q12H 11/10/17 Anemia: Yes Asthma: No Cancer: Yes (LYMPHOMA, chemo) Cardiac Disorders: Yes (AORTIC VALVE REPLACEMENT, TRANSVERSE ARCH GRAFT) CVA: Yes (06/2015) COPD: Yes (ABESTOSIS) CHF: Yes DVT: No Dementia: No Diabetes: No GI Disorders: Yes (HIATAL HERNIA, bleeding ulcer, EGD, GIB, Melena, tumor biopsy ) Disorders: No HTN: Yes Hypercholesterolemia: Yes Liver Disease: No Seizures: No Thyroid Disease: No - Surgical History Abdominal Surgery: No Appendectomy: No Cardiac Surgery: Yes (PACEMAKER; VALVE REPLACEMENT,TRANSVERSE ARCH GRAFT) Cholecystectomy: No Lung Surgery: No Neurologic Surgery: No Orthopedic Surgery: No - Immunization History Immunization Up to Date: Yes - Suicide/Smoking/Psychosocial Hx Smoking Status: No Smoking History: Never smoked Have you smoked in the past 12 months: No Number of Cigarettes Smoked Daily: 10 If you are a former smoker, when did you quit?: 1982 Cigars Per Day: 1 Information on smoking cessation initiated: No 'Breaking Loose' booklet given: 08/16/14 Hx Alcohol Use: No Drug/Substance Use Hx: No Substance Use Type: None Hx Substance Use Treatment: No Review of Systems - Review of Systems Constitutional: Yes: Weakness. No: Chills, Diaphoresis, Fever HEENTM: No: Eye Pain, Recent change in vision, Ear Pain, Nose Pain, Throat Pain , Mouth Pain Respiratory: Yes: Shortness of Breath. No: Cough, Hemoptysis Cardiac (ROS): No: Chest Pain, Lightheadedness, Palpitations ABD/GI: Yes: Poor Appetite. No: Abdominal Distended, Constipated, Diarrhea, Nausea, Rectal Bleeding, Vomiting, Tarry Stools : No: Burning, Dysuria, Hematuria, Urgency Musculoskeletal: No: Back Pain, Joint Pain, Neck Pain Integumentary: No: Bruising, Erythema, Rash Neurological: No: Headache, Numbness, Tingling, Tremors, Dizziness Psychiatric: No: Change in Appetite Endocrine: No: Unexplained Weight Gain Hematologic/Lymphatic: No: Anemia *Physical Exam - Vital Signs Last Vital Signs Temp Pulse Resp BP Pulse Ox 97.5 F L 80 20 103/64 100 05/26/18 12:16 05/26/18 12:16 05/26/18 12:16 05/26/18 12:16 05/26/18 12:16 - Physical Exam General Appearance: Yes: Nourished, Appropriately Dressed. No: Apparent Distress, Alcohol on Breath, Intoxicated, Obese HEENT: positive: EOMI, IAN, Normal Voice, Symmetrical, Pharynx Normal, Other ( dry mucous membranes). negative: Pale Conjunctivae, Scleral Icterus (R), Scleral Icterus (L), Muffled/Hoarse voice, Pharyngeal Erythema, Tonsillar Exudate Neck: positive: Trachea midline, Supple. negative: Tender Respiratory/Chest: positive: Lungs Clear, Normal Breath Sounds. negative: Chest Tender, Respiratory Distress, Accessory Muscle Use Cardiovascular: positive: Regular Rhythm, Regular Rate, S1, S2. negative: Systolic Murmur Gastrointestinal/Abdominal: positive: Decreased BS, Distended, Mass (epigastric and RUQ), Other (prominent veins consistent with caput medusa) Lymphatic: negative: Adenopathy Musculoskeletal: positive: Normal Inspection. negative: CVA Tenderness, Vertebral Tenderness Extremity: positive: Normal Capillary Refill, Normal Inspection, Normal Range of Motion. 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 developer II-XII NML intact, Alert, Normal Mood/Affect, Normal Response, Motor Strength 5/5 Moderate Sedation - Procedure Monitoring Vital Signs: Procedure Monitoring Vital Signs Temperature 97.5 F L 05/26/18 12:16 Pulse Rate 80 05/26/18 12:16 Respiratory Rate 20 05/26/18 12:16 Blood Pressure 103/64 05/26/18 12:16 O2 Sat by Pulse Oximetry (%) 100 05/26/18 12:16 ED Treatment Course - LABORATORY CBC & Chemistry Diagram: 06/02/18 07:30 06/02/18 07:30 Medical Decision Making - Medical Decision Making 68 yo M with a hx of COPD, follicular lymphoma (last chemotherapy tx Feb 2018; pending PET scan at [facility]), anemia, prosthetic heart valve, and pacemaker placement (last changed Feb 2017) presents to the emergency department with generalized weakness for the past 3 days. Echo 04/2017: 49% EF NM scan: 10/2017: no scintographic pattern of osteoblastic bonym ets EGD 2018: fungating mass in duodenum Initial vitals: Initial Vital Signs Pulse Ox 100 05/26/18 12:00 BP: 103/64, 80 bpm, 97.5 F. Work up: ddx: weakness (electrolyte abnormality vs anemia vs infectious etiology vs cardiac etiology vs metastatic disease) orders: cbc, cmp, trop, ekg, cxr, abdomen pelvis ct with contrast, ammonia Laboratory Tests 05/26/18 05/26/18 05/26/18 14:40 14:40 14:47 WBC 5.3 RBC 3.44 L Hgb 11.8 Hct 34.4 L D MCV 99.9 H MCH 34.3 H D MCHC 34.3 RDW 16.3 H Plt Count 115 L D MPV 9.0 Absolute Neuts (auto) 4.0 Neutrophils % 75.0 Neutrophils % (Manual) 76.0 Band Neutrophils % 3.0 Lymphocytes % 7.4 L D Lymphocytes % (Manual) 3.0 L D Monocytes % 15.3 H D Monocytes % (Manual) 15 H D Eosinophils % 1.6 D Eosinophils % (Manual) 1.0 D Basophils % 0.7 Basophils % (Manual) 0.0 Myelocytes % (Man) 1 D Promyelocytes % (Man) 0 Blast Cells % (Manual) 0 Nucleated RBC % 0 Metamyelocytes 0 D Hypochromia 0 Platelet Estimate Decreased Polychromasia 1+ Poikilocytosis 2+ Anisocytosis 1+ Microcytosis 0 Macrocytosis 1+ Target Cells 1+ Tear Drop Cells 1+ Ovalocytes 1+ Schistocytes 1+ PTT (Actin FS) Sodium 140 Potassium 4.8 Chloride 108 H Carbon Dioxide 24 Anion Gap 8 BUN 44 H Creatinine 1.8 H Creat Clearance w eGFR 37.82 Random Glucose 81 Calcium 11.7 H Total Bilirubin 0.8 AST 46 H ALT 13 Alkaline Phosphatase 128 H Ammonia 38.50 H Creatine Kinase 31 Troponin I 0.13 H Total Protein 6.6 Albumin 3.4 Urine Color Urine Appearance Urine pH Ur Specific [place] Urine Protein Urine Glucose (UA) Urine Ketones Urine Blood Urine Nitrite Urine Bilirubin Urine Urobilinogen Ur Leukocyte Esterase Urine WBC (Auto) Urine RBC (Auto) Calcium Oxalate Crystal Urine Bacteria Urine Mucus Urine Creatinine 05/26/18 05/27/18 05/27/18 15:12 01:00 01:00 WBC RBC Hgb Hct MCV MCH MCHC RDW Plt Count MPV Absolute Neuts (auto) Neutrophils % Neutrophils % (Manual) Band Neutrophils % Lymphocytes % Lymphocytes % (Manual) Monocytes % Monocytes % (Manual) Eosinophils % Eosinophils % (Manual) Basophils % Basophils % (Manual) Myelocytes % (Man) Promyelocytes % (Man) Blast Cells % (Manual) Nucleated RBC % Metamyelocytes Hypochromia Platelet Estimate Polychromasia Poikilocytosis Anisocytosis Microcytosis Macrocytosis Target Cells Tear Drop Cells Ovalocytes Schistocytes PTT (Actin FS) Sodium Potassium Chloride Carbon Dioxide Anion Gap BUN Creatinine Creat Clearance w eGFR Random Glucose Calcium Total Bilirubin AST ALT Alkaline Phosphatase Ammonia Creatine Kinase Troponin I Total Protein Albumin Urine Color Yellow Urine Appearance Turbid Urine pH 5.0 Ur Specific [place] 1.019 Urine Protein 3+ H Urine Glucose (UA) Negative Urine Ketones Negative Urine Blood 1+ H Urine Nitrite Negative Urine Bilirubin Negative Urine Urobilinogen Negative Ur Leukocyte Esterase 2+ H Urine WBC (Auto) 4517 Urine RBC (Auto) 21 Calcium Oxalate Crystal Urine Bacteria Moderate Urine Mucus Rare Urine Creatinine UA shows 2+ leuk esterase with 4517 WBC. ammonia, troponin, creatinine elevated. CT abdomen and pelvis shows left pleural effusion, very large mid epigastric mass extending into the retroperiotneum consistent with a large LN mass. multiple left lower abdominal and upper pelvic massess consistent with additional neoplastic process. EKG shows ventricular paced rhythm without ST elevations or depressions. Will admit patient for troponiemia, UTI, ams, and JOSH Dispo: Admit *DC/Admit/Observation/Transfer Diagnosis at time of Disposition: Pacemaker UTI (urinary tract infection) Qualifiers: Urinary tract infection type: site unspecified Hematuria presence: without hematuria Qualified Code(s): N39.0 - Urinary tract infection, site not specified Lymphoma Qualifiers: Lymphoma type: unspecified type Lymphoma site: unspecified region Qualified Code(s): C85.90 - Non-Hodgkin lymphoma, unspecified, unspecified site - Discharge Dispostion Disposition: Condition at time of disposition: - Referrals - Patient Instructions - Post Discharge Activity
[2018-05-26] MEDS ORDERED: SODIUM CHLORIDE 1,000 ML IV STA (14:37)
[2018-05-26 15:01] LABS: BASO % 0.7 % (0-2.0); EOS % 1.6 % (0-4.5); HEMATOCRIT 34.4 % (35.4-49); HEMOGLOBIN 11.8 GM/dL (11.7-16.9); LYMPH % 7.4 % (8-40); MCH 34.3 pg (25.7-33.7); MCHC 34.3 g/dl (32.0-35.9); MEAN CELL VOLUME 99.9 fl (80-96); MONO % 15.3 % (3.8-10.2); PLATELET COUNT 115 K/MM3 (134-434); RBC 3.44 M/mm3 (4.00-5.60); RDW 16.3 % (11.9-15.9); WHITE BLOOD COUNT 5.3 K/mm3 (4.0-10.0)
[2018-05-26 15:45] LABS: ALBUMIN 3.4 g/dl (3.4-5.0); ALK PHOS 128 U/L (45-117); ANION GAP 8 MMOL/L (8-16); BILIRUBIN,TOTAL 0.8 mg/dL (0.2-1); BLOOD UREA NITROGEN 44 mg/dL (7-18); CALCIUM 11.7 mg/dL (8.5-10.1); CHLORIDE 108 mmol/L (98-107); CO2 24 mmol/L (21-32); CREATININE 1.8 mg/dL (0.55-1.3); GLUCOSE,RANDOM 81 mg/dL (74-106); POTASSIUM 4.8 mmol/L (3.5-5.1); SGOT/AST 46 U/L (15-37); SGPT/ALT 13 U/L (13-61); SODIUM 140 mmol/L (136-145); TOT PROT 6.6 g/dl (6.4-8.2)
[2018-05-26 15:46] LABS: URINE APPEARANCE TURBID; URINE BILIRUBIN NEGATIVE (<2.0 mg/dL); URINE COLOR YELLOW; URINE GLUCOSE (UA) NEGATIVE (NEGATIVE); URINE KETONE NEGATIVE (NEGATIVE); URINE LEUK ESTERASE 2+ (NEGATIVE); URINE NITRITE NEGATIVE (NEGATIVE); URINE PROTEIN 3+ (NEGATIVE); URINE UROBILINOGEN NEGATIVE mg/dL (0.2-1.0)
[2018-05-26 15:50] LABS: URINE BACTERIA MODERATE /hpf (NONE SEEN); URINE MUCUS RARE
[2018-05-26 16:02] LABS: ANISOCYTOSIS 1+; MACROCYTOSIS 1+; OVALOCYTE 1+; PLATELET ESTIMATE DECREASED; TARGET CELLS 1+; TEAR DROP CELLS 1+
[2018-05-26] MEDS ORDERED: CEFTRIAXONE 1,000 MG in DEXTROSE 5%-WATER - 50 ML IVPB ONE (16:04)
[2018-05-26] MEDS ORDERED: SODIUM CHLORIDE 500 ML IV STA (16:46)
[2018-05-26] MEDS ORDERED: CEFTRIAXONE 1 GM/50 ML BAG ONE (16:53)
[2018-05-26] MEDS ORDERED: PIPERACILLIN/TAZOB 2.25 GM 2.25 GM in DEXTROSE 5%-WATER - 50 ML IVPB ONE (17:39)
[2018-05-26] MEDS ORDERED: PIPERACILLIN/TAZOB 2.25 GM 2.25 GM/50 ML BAG IVPB ONE (19:49)
--- NOTE | 2018-05-26 21:21 | HP ---
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 No other complaints. Denied any significant pain. He reported receiving recent Iv antibiotics for a UTI which he completed. ER course was notable for: (1) CT of abdomen/pelvis (2) zosyn (3) Recent Travel: no PAST MEDICAL HISTORY:COPD, follicular lymphoma (last chemotherapy tx Feb 2018; pending PET scan at [facility]), anemia, prosthetic heart valve, and pacemaker placement (last changed Feb 2017) PAST SURGICAL HISTORY: as above Social History: Smoking: no Alcohol: no Drugs: no Family History: no Allergies No Known Drug Allergies Allergy (Verified 05/26/18 11:57) HOME MEDICATIONS: Home Medications Medication Instructions Recorded Atorvastatin Ca [Lipitor] 40 mg PO HS 01/12/17 levETIRAcetam [Keppra -] 500 mg PO BID tablet 02/24/17 Albuterol Sulfate Inhaler - 2 inh PO QID PRN 11/10/17 [Ventolin Hfa Inhaler -] Amlodipine Besylate 2.5 mg PO DAILY 11/10/17 Filgrastim [Neupogen] 480 mcg SQ HS 11/10/17 Fluconazole [Diflucan -] 400 mg PO DAILY 11/10/17 Folic Acid 1 mg PO DAILY 11/10/17 Pantoprazole Sodium 40 mg PO DAILY 11/10/17 Sulfamethoxazole/Trimethoprim 1 tab PO ASDIR 11/10/17 [Bactrim Ds -] Thiamine HCl [B-1] 100 mg PO DAILY 11/10/17 Valacyclovir HCl [Valtrex] 500 mg PO Q12H 11/10/17 REVIEW OF SYSTEMS CONSTITUTIONAL: Absent: fever, chills, diaphoresis, weight change present- generalized weakness, malaise, loss of appetite HEENT: Absent: rhinorrhea, nasal congestion, throat pain, throat swelling, difficulty swallowing, mouth swelling, ear pain, eye pain, visual changes CARDIOVASCULAR: Absent: chest pain, syncope, palpitations, irregular heart rate, lightheadedness , peripheral edema RESPIRATORY: Absent: cough, shortness of breath, dyspnea with exertion, orthopnea, wheezing, stridor, hemoptysis GASTROINTESTINAL: Absent: abdominal pain, abdominal distension, nausea, vomiting, diarrhea, constipation, melena, hematochezia GENITOURINARY: Absent: dysuria, frequency, urgency, hesitancy, hematuria, flank pain, genital pain MUSCULOSKELETAL: Absent: myalgia, arthralgia, joint swelling, back pain, neck pain SKIN: Absent: rash, itching, pallor HEMATOLOGIC/IMMUNOLOGIC: Absent: easy bleeding, easy bruising, lymphadenopathy, frequent infections ENDOCRINE: Absent: unexplained weight gain, unexplained weight loss, heat intolerance, cold intolerance NEUROLOGIC: Absent: headache, focal weakness or paresthesias, dizziness, unsteady gait, seizure, mental status changes, bladder or bowel incontinence PSYCHIATRIC: Absent: anxiety, depression, suicidal or homicidal ideation, hallucinations. PHYSICAL EXAMINATION Vital Signs - 24 hr 05/26/18 05/26/18 05/26/18 12:00 12:16 14:15 Temperature 97.5 F L 99.1 F Pulse Rate 80 Pulse Rate [ Left Radial] Respiratory 20 Rate Blood Pressure 103/64 Blood Pressure [Left Arm] O2 Sat by Pulse 100 100 Oximetry (%) 05/26/18 05/26/18 05/26/18 15:09 19:43 20:48 Temperature 99.8 F H 98.9 F 97.9 F Pulse Rate 80 Pulse Rate [ 76 Left Radial] Respiratory 18 18 Rate Blood Pressure 112/72 Blood Pressure 102/63 [Left Arm] O2 Sat by Pulse 96 97 Oximetry (%) GENERAL: Awake, alert, appears chronically ill HEAD: Normal with no signs of trauma. EYES: Pupils equal, round and reactive to light, extraocular movements intact, sclera anicteric, conjunctiva clear. No lid lag. EARS, NOSE, THROAT: Ears normal, nares patent, oropharynx clear without exudates. Moist mucous membranes. NECK: Normal range of motion, supple without lymphadenopathy, JVD, or masses. LUNGS: Breath sounds equal, clear to auscultation bilaterally. No wheezes, and no crackles. No accessory muscle use. Chest- anterior chest scar HEART: Regular rate and rhythm, normal S1 and S2 without murmur, rub or gallop. ABDOMEN: distended, BS+, nontender, caput medusae MUSCULOSKELETAL: Normal range of motion at all joints. No bony deformities or tenderness. No CVA tenderness. UPPER EXTREMITIES: right arm PICC line LOWER EXTREMITIES: 2+ pulses, warm, well-perfused. No calf tenderness. No peripheral edema. NEUROLOGICAL: Cranial nerves II-XII intact. Normal speech. PSYCHIATRIC: Cooperative. Good eye contact. Appropriate mood and affect. SKIN: Warm, dry, normal turgor, no rashes or lesions noted, normal capillary refill. Laboratory Results - last 24 hr 05/26/18 05/26/18 05/26/18 14:40 14:40 14:47 WBC 5.3 RBC 3.44 L Hgb 11.8 Hct 34.4 L D MCV 99.9 H MCH 34.3 H D MCHC 34.3 RDW 16.3 H Plt Count 115 L D MPV 9.0 Absolute Neuts (auto) 4.0 Neutrophils % 75.0 Neutrophils % (Manual) 76.0 Band Neutrophils % 3.0 Lymphocytes % 7.4 L D Lymphocytes % (Manual) 3.0 L D Monocytes % 15.3 H D Monocytes % (Manual) 15 H D Eosinophils % 1.6 D Eosinophils % (Manual) 1.0 D Basophils % 0.7 Basophils % (Manual) 0.0 Myelocytes % (Man) 1 D Promyelocytes % (Man) 0 Blast Cells % (Manual) 0 Nucleated RBC % 0 Metamyelocytes 0 D Hypochromia 0 Platelet Estimate Decreased Polychromasia 1+ Poikilocytosis 2+ Anisocytosis 1+ Microcytosis 0 Macrocytosis 1+ Target Cells 1+ Tear Drop Cells 1+ Ovalocytes 1+ Schistocytes 1+ Sodium 140 Potassium 4.8 Chloride 108 H Carbon Dioxide 24 Anion Gap 8 BUN 44 H Creatinine 1.8 H Creat Clearance w eGFR 37.82 Random Glucose 81 Calcium 11.7 H Total Bilirubin 0.8 AST 46 H ALT 13 Alkaline Phosphatase 128 H Ammonia 38.50 H Creatine Kinase 31 Troponin I 0.13 H Total Protein 6.6 Albumin 3.4 Urine Color Urine Appearance Urine pH Ur Specific [place] Urine Protein Urine Glucose (UA) Urine Ketones Urine Blood Urine Nitrite Urine Bilirubin Urine Urobilinogen Ur Leukocyte Esterase Urine WBC (Auto) Urine RBC (Auto) Urine Bacteria Urine Mucus 05/26/18 15:12 WBC RBC Hgb Hct MCV MCH MCHC RDW Plt Count MPV Absolute Neuts (auto) Neutrophils % Neutrophils % (Manual) Band Neutrophils % Lymphocytes % Lymphocytes % (Manual) Monocytes % Monocytes % (Manual) Eosinophils % Eosinophils % (Manual) Basophils % Basophils % (Manual) Myelocytes % (Man) Promyelocytes % (Man) Blast Cells % (Manual) Nucleated RBC % Metamyelocytes Hypochromia Platelet Estimate Polychromasia Poikilocytosis Anisocytosis Microcytosis Macrocytosis Target Cells Tear Drop Cells Ovalocytes Schistocytes Sodium Potassium Chloride Carbon Dioxide Anion Gap BUN Creatinine Creat Clearance w eGFR Random Glucose Calcium Total Bilirubin AST ALT Alkaline Phosphatase Ammonia Creatine Kinase Troponin I Total Protein Albumin Urine Color Yellow Urine Appearance Turbid Urine pH 5.0 Ur Specific [place] 1.019 Urine Protein 3+ H Urine Glucose (UA) Negative Urine Ketones Negative Urine Blood 1+ H Urine Nitrite Negative Urine Bilirubin Negative Urine Urobilinogen Negative Ur Leukocyte Esterase 2+ H Urine WBC (Auto) 4517 Urine RBC (Auto) 21 Urine Bacteria Moderate Urine Mucus Rare Imaging studies reviewed, abd/pelvis CT which large epigastric intraabdominal mass c/w lymphoma ASSESSMENT/PLAN: #Failure to thrive generalized weakness likely secondary to underlying malignancy -observation -feedings with assistance -bed rest -fall precautions -IV fluid hydration -zofran if nausea or vomiting -morphine IV prn for pain control -medications to be reconciled with pharmacy in am (old list) #Troponemia - no chest pain, doubt NE -trend trops -cardiology consult was placed #Hyeperamnonemia - does not clearly appear to be in overt liver failure- normal tbili, albumin, -lactulose PO -send PT/ptt #FOllicular lymphoma -heme/onc consult #DVT ppx - heparin sc Visit type - Emergency Visit Emergency Visit: Yes ED Registration Date: 05/26/18 Care time: The patient presented to the Emergency Department on the above date and was hospitalized for further evaluation of their emergent condition. - New Patient This patient is new to me today: Yes Date on this admission: 05/27/18 - Critical Care Critical Care patient: No
[2018-05-26] MEDS: SODIUM CHLORIDE 1,000 ML IV SCH (21:49)
[2018-05-26] MEDS: valACYclovir HCL 500 MG TABLET (FP) PO SCH (21:50)
[2018-05-26] MEDS: ATORVASTATIN CA 40 MG TABLET (FP) PO SCH (21:50)
[2018-05-26] MEDS: levETIRAcetam 500 MG TABLET (FP) PO SCH (21:50)
[2018-05-26] MEDS: HEPARIN NA (PORCINE) 5,000 UNITS/ML 1ML VIAL SQ SCH (21:50)
[2018-05-27 08:40] LABS: HEMATOCRIT 33.3 % (35.4-49); HEMOGLOBIN 11.3 GM/dL (11.7-16.9); MCH 33.8 pg (25.7-33.7); MEAN CELL VOLUME 99.4 fl (80-96); MEAN PLT VOLUME 9.7 fl (7.5-11.1); PLATELET COUNT 124 K/MM3 (134-434); RBC 3.35 M/mm3 (4.00-5.60); RDW 16.4 % (11.9-15.9); WHITE BLOOD COUNT 9.2 K/mm3 (4.0-10.0)
[2018-05-27 09:11] LABS: ALBUMIN 3.3 g/dl (3.4-5.0); ALK PHOS 132 U/L (45-117); ANION GAP 11 MMOL/L (8-16); BILIRUBIN,TOTAL 0.6 mg/dL (0.2-1); BLOOD UREA NITROGEN 40 mg/dL (7-18); CALCIUM 10.9 mg/dL (8.5-10.1); CHLORIDE 108 mmol/L (98-107); CO2 21 mmol/L (21-32); CREATININE 1.5 mg/dL (0.55-1.3); GLUCOSE,RANDOM 85 mg/dL (74-106); POTASSIUM 4.3 mmol/L (3.5-5.1); SGOT/AST 43 U/L (15-37); SGPT/ALT 10 U/L (13-61); SODIUM 140 mmol/L (136-145); TOT PROT 6.7 g/dl (6.4-8.2)
[2018-05-27] MEDS: HEPARIN NA (PORCINE) 5,000 UNITS/ML 1ML VIAL SQ SCH ×2 (09:13→21:44)
[2018-05-27] MEDS: PANTOPRAZOLE 40 MG TABLET (FP) PO SCH (09:14)
[2018-05-27] MEDS: THIAMINE HCL 100 MG TABLET (FP) PO SCH (09:14)
[2018-05-27] MEDS: levETIRAcetam 500 MG TABLET (FP) PO SCH ×2 (09:14→21:44)
[2018-05-27] MEDS: amLODIPine BESYLATE 5 MG TABLET (FP) PO SCH (09:14)
[2018-05-27] MEDS: FOLIC ACID 1 MG TABLET (FP) PO SCH (09:14)
[2018-05-27] MEDS: valACYclovir HCL 500 MG TABLET (FP) PO SCH ×2 (09:14→21:44)
[2018-05-27] MEDS: SODIUM CHLORIDE 1,000 ML IV SCH (09:36)
--- NOTE | 2018-05-27 10:50 | EKG ---
Test Reason : Blood Pressure : / mmHG Vent. Rate : 080 BPM Atrial Rate : 082 BPM P-R Int : 000 ms QRS Dur : 172 ms QT Int : 466 ms P-R-T Axes : 000 -61 092 degrees QTc Int : 537 ms Ventricular-paced rhythm ABNORMAL ECG WHEN COMPARED WITH ECG OF 26-MAY-2018 12:35, NO SIGNIFICANT CHANGE WAS FOUND Confirmed by DIANA MARR MD ([id number]) on 05/27/2018 10:49:58 AM Referred By: Confirmed By:DIANA MARR MD
--- NOTE | 2018-05-27 10:53 | EKG ---
Test Reason : Blood Pressure : / mmHG Vent. Rate : 080 BPM Atrial Rate : 110 BPM P-R Int : 000 ms QRS Dur : 182 ms QT Int : 452 ms P-R-T Axes : 000 -15 114 degrees QTc Int : 521 ms Ventricular-paced rhythm ABNORMAL ECG WHEN COMPARED WITH ECG OF 10-NOV-2017 18:16, NO SIGNIFICANT CHANGE WAS FOUND Confirmed by DIANA MARR MD ([id number]) on 05/27/2018 10:53:37 AM Referred By: Confirmed By:DIANA MARR MD
--- NOTE | 2018-05-27 11:57 | PN ---
Progress Note, Physician Chief Complaint: UTI JOSH Elevated troponin History of Present Illness: Previous notes and events reviewed awake and alert NAD denies SOB, difficulty breathing - Current Medication List Current Medications: Active Medications Albuterol Sulfate (Ventolin 0.083% Nebulizer Soln -) 1 amp NEB Q6H PRN PRN Reason: SHORT OF BREATH/WHEEZING Amlodipine Besylate (Norvasc -) 2.5 mg PO DAILY [facility] Last Admin: 05/27/18 09:14 Dose: 2.5 mg Atorvastatin Calcium (Lipitor -) 40 mg PO HS [facility] Last Admin: 05/26/18 21:50 Dose: 40 mg Folic Acid (Folic Acid -) 1 mg PO DAILY [facility] Last Admin: 05/27/18 09:14 Dose: 1 mg Heparin Sodium (Porcine) (Heparin -) 5,000 unit SQ BID [facility] Last Admin: 05/27/18 09:13 Dose: 5,000 unit Sodium Chloride (Normal Saline -) 1,000 mls @ 75 mls/hr IV ASDIR [facility] Last Admin: 05/27/18 09:36 Dose: 75 mls/hr Levetiracetam (Keppra -) 500 mg PO BID [facility] Last Admin: 05/27/18 09:14 Dose: 500 mg Pantoprazole Sodium (Protonix -) 40 mg PO DAILY [facility] Last Admin: 05/27/18 09:14 Dose: 40 mg Thiamine HCl (Vitamin B1 -) 100 mg PO DAILY [facility] Last Admin: 05/27/18 09:14 Dose: 100 mg Valacyclovir HCl (Valtrex -) 500 mg PO BID [facility] Last Admin: 05/27/18 09:14 Dose: 500 mg - Objective Vital Signs: Vital Signs Temperature 98.4 F 05/27/18 05:50 Pulse Rate 78 05/27/18 05:50 Respiratory Rate 20 05/27/18 05:50 Blood Pressure 116/67 05/27/18 05:50 O2 Sat by Pulse Oximetry (%) 97 05/26/18 20:48 Constitutional: Yes: Well Nourished, No Distress, Calm Eyes: Yes: Conjunctiva Clear HENT: Yes: Atraumatic Cardiovascular: Yes: Regular Rate and Rhythm Respiratory: Yes: Regular, CTA Bilaterally Gastrointestinal: Yes: Normal Bowel Sounds, Soft, Distention, Other (caput medusae) Genitourinary: Yes: Block Present Musculoskeletal: Yes: Muscle Weakness Extremities: Yes: Other (RUE-PICC line) Edema: Yes (RLE) Neurological: Yes: Alert Psychiatric: Yes: Alert Labs: CBC, BMP 05/27/18 07:59 05/27/18 07:59 Microbiology 05/26/18 15:12 Urine - Urine Clean Catch Urine Culture - Preliminary Lactose Fermenting Neg Bacilli Problem List - Problems (1) Lymphoma Assessment/Plan: -heme/onc consult placed Code(s): C85.90 - NON-HODGKIN LYMPHOMA, UNSPECIFIED, UNSPECIFIED SITE Qualifiers: Lymphoma type: unspecified type Lymphoma site: unspecified region Qualified Code(s): C85.90 - Non-Hodgkin lymphoma, unspecified, unspecified site (2) UTI (urinary tract infection) Assessment/Plan: -ID consult placed -afebrile -no leukocytosis, wbc 9.2 -UA show 3+ protein, 1+ blood, 2+ leuks, UC positive for lactose fermenting neg bacilli Code(s): N39.0 - URINARY TRACT INFECTION, SITE NOT SPECIFIED Qualifiers: Urinary tract infection type: site unspecified Hematuria presence: without hematuria Qualified Code(s): N39.0 - Urinary tract infection, site not specified (3) HTN (hypertension) Assessment/Plan: -low Na diet -amlodipine Code(s): I10 - ESSENTIAL (PRIMARY) HYPERTENSION Qualifiers: Hypertension type: essential hypertension Qualified Code(s): I10 - Essential (primary) hypertension (4) Troponin level elevated Assessment/Plan: -troponin 0.12, hx of elev trop -will monitor trop for downtrend -cardiology consult placed Code(s): R74.8 - ABNORMAL LEVELS OF OTHER SERUM ENZYMES (5) Retroperitoneal mass Assessment/Plan: -GI consult placed -Abdominal US ordered due to elevated LFTs -CT scan show very large mid epigastric mass extending into the retroperitoneum consistent with a large lymph node mass, multiple left lower abdominal and upper pelvic masses consistent with additional neoplastic process -heme/onc consult placed Code(s): R19.00 - INTRA-ABD AND PELVIC SWELLING, MASS AND LUMP, UNSP SITE (6) JOSH (acute kidney injury) Assessment/Plan: -renal on board -BUN/Cr 40/1.5 -monitor renal function for downtrend -pending urine K, urine Cr, urine Na, urine lytes Code(s): N17.9 - ACUTE KIDNEY FAILURE, UNSPECIFIED (7) Pleural effusion Assessment/Plan: -CT scan shows Left pleural effusion and basilar atelectasis -pulm consult -O2 via NC prn for SOB -albuterol prn for SOB Code(s): J90 - PLEURAL EFFUSION, NOT ELSEWHERE CLASSIFIED Assessment/Plan see problem list dvt ppx
--- NOTE | 2018-05-27 13:01 | CONSULT ---
Consult Consult Specialty:: Nephrology Reason for Consultation:: JOSH - History of Present Illness Chief Complaint: altered mental status History of Present Illness: Pt is a 68 year old make with pmhx of COPD, follicular lymphoma s/p chemotherapy anemia, prosthetc heart valve, endocarditis, a-fib and cva who presents with weakness and altered mental status. He was found to be in acute renal failure and I was called to evaluate him. He denies shortness of breath. he denies dysuria or hematuria. he was also found to have a uti. He denies fevers or chills. He complains of poor appetite. He is a poor historian. 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 Cardio/Vascular: Yes: AFIB, CAD, HTN, Hyperlipdemia, Other (AVR) Pulmonary: Yes: COPD Gastrointestinal: Yes: GI Bleed (egd 07/17/17 DU, colonoscopyy 07/17 multiple polyps ), Peptic Ulcer Disease Infectious Disease: Yes: MRSA - Past Surgical History Past Surgical History: Yes: Valve Replacement - Alcohol/Substance Use Hx Alcohol Use: No History of Substance Use: reports: None - Smoking History Smoking history: Former smoker Have you smoked in the past 12 months: No Aproximately how many cigarettes per day: 10 If you are a former smoker, when did you quit?: 1981 - Social History Usual Living Arrangement: With Spouse ADL: Independent 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 History of Recent Travel: No Home Medications - Allergies Allergies/Adverse Reactions: Allergies Allergy/AdvReac Type Severity Reaction Status Date / Time No Known Drug Allergies Allergy Verified 05/26/18 11:57 - Home Medications Home Medications: Ambulatory Orders Atorvastatin Ca [Lipitor] 40 mg PO HS 01/12/17 levETIRAcetam [Keppra -] 500 mg PO BID tablet 02/24/17 Albuterol Sulfate Inhaler - [Ventolin Hfa Inhaler -] 2 inh PO QID PRN 11/10/17 Amlodipine Besylate 2.5 mg PO DAILY 11/10/17 Filgrastim [Neupogen] 480 mcg SQ HS 11/10/17 Fluconazole [Diflucan -] 400 mg PO DAILY 11/10/17 Folic Acid 1 mg PO DAILY 11/10/17 Pantoprazole Sodium 40 mg PO DAILY 11/10/17 Sulfamethoxazole/Trimethoprim [Bactrim Ds -] 1 tab PO ASDIR 11/10/17 Thiamine HCl [B-1] 100 mg PO DAILY 11/10/17 Valacyclovir HCl [Valtrex] 500 mg PO Q12H 11/10/17 Family Disease History - Family Disease History Family History: Denies Review of Systems - Review of Systems Constitutional: reports: Malaise. denies: Chills Eyes: reports: No Symptoms HENT: reports: No Symptoms Neck: reports: No Symptoms Cardiovascular: denies: Edema, Shortness of Breath Respiratory: denies: SOB Gastrointestinal: reports: No Symptoms Genitourinary: reports: No Symptoms Musculoskeletal: reports: Muscle Weakness Neurological: reports: Weakness Endocrine: reports: No Symptoms Psychiatric: reports: No Symptoms Physical Exam Vital Signs: Vital Signs Temperature 98.4 F 05/27/18 05:50 Pulse Rate 78 05/27/18 05:50 Respiratory Rate 20 05/27/18 05:50 Blood Pressure 116/67 05/27/18 05:50 O2 Sat by Pulse Oximetry (%) 97 05/26/18 20:48 Constitutional: Yes: Calm Eyes: Yes: Conjunctiva Clear HENT: Yes: Atraumatic Cardiovascular: Yes: S1, S2 Respiratory: Yes: CTA Bilaterally Gastrointestinal: Yes: Ascites Renal/: Yes: WNL Musculoskeletal: Yes: Muscle Weakness Edema: No Neurological: Yes: Confusion Labs: CBC, BMP 05/27/18 07:59 05/27/18 07:59 Laboratory Tests 11/17/17 11/18/17 11/18/17 06:00 06:00 20:00 Creatinine 0.5 L 0.4 L 0.6 L Urine Protein Urine Blood Ur Leukocyte Esterase Urine WBC (Auto) 05/26/18 05/26/18 05/27/18 14:40 15:12 07:59 Creatinine 1.8 H 1.5 H Urine Protein 3+ H Urine Blood 1+ H Ur Leukocyte Esterase 2+ H Urine WBC (Auto) 4517 Imaging - Results Chest X-ray: Report Reviewed Problem List - Problems (1) JOSH (acute kidney injury) Code(s): N17.9 - ACUTE KIDNEY FAILURE, UNSPECIFIED (2) Lymphoma Code(s): C85.90 - NON-HODGKIN LYMPHOMA, UNSPECIFIED, UNSPECIFIED SITE Qualifiers: Lymphoma type: unspecified type Lymphoma site: unspecified region Qualified Code(s): C85.90 - Non-Hodgkin lymphoma, unspecified, unspecified site (3) UTI (urinary tract infection) Code(s): N39.0 - URINARY TRACT INFECTION, SITE NOT SPECIFIED Qualifiers: Urinary tract infection type: site unspecified Hematuria presence: without hematuria Qualified Code(s): N39.0 - Urinary tract infection, site not specified Assessment/Plan Current Medications Generic Name Dose Route Start Last Admin Trade Name Freq PRN Reason Stop Dose Admin Albuterol Sulfate 1 amp 05/26/18 21:31 Ventolin 0.083% Nebulizer Soln - NEB Q6H PRN SHORT OF BREATH/WHEEZING Amlodipine Besylate 2.5 mg 05/27/18 10:00 05/27/18 09:14 Norvasc - PO 2.5 mg DAILY [facility] Administration Atorvastatin Calcium 40 mg 05/26/18 22:00 05/26/18 21:50 Lipitor - PO 40 mg HS [facility]ANE Administration Folic Acid 1 mg 05/27/18 10:00 05/27/18 09:14 Folic Acid - PO 1 mg DAILY [facility] Administration Heparin Sodium (Porcine) 5,000 unit 05/26/18 22:00 05/27/18 09:13 Heparin - SQ 5,000 unit BID [facility] Administration Sodium Chloride 1,000 mls @ 75 mls/hr 05/26/18 21:30 05/27/18 09:36 Normal Saline - IV 75 mls/hr ASDIR [facility] Administration Levetiracetam 500 mg 05/26/18 22:00 05/27/18 09:14 Keppra - PO 500 mg BID [facility] Administration Pantoprazole Sodium 40 mg 05/27/18 10:00 05/27/18 09:14 Protonix - PO 40 mg DAILY [facility] Administration Thiamine HCl 100 mg 05/27/18 10:00 05/27/18 09:14 Vitamin B1 - PO 100 mg DAILY [facility] Administration Valacyclovir HCl 500 mg 05/26/18 22:00 05/27/18 09:14 Valtrex - PO 500 mg BID [facility] Administration Impression 1. JOSH 2. UTI 3. follicular lymphoma 4. endocarditis s/p valve replacement 5. a-fib 6. cva 7. htn 8. hld 9. COPD Plan - renal function is improving - pt does have ascites, discussed with primary team, check liver u/s - renal ultrasound - cont fluids as renal function is improving - follow cultures - send ua, urine lytes and mailhouse operator to calc fena - pt was on bactrim (on home meds) which can raise the creatinine - encourage PO intake - pt likely has a component of pre-renal disease
--- NOTE | 2018-05-27 13:36 | CON.GI ---
Consult Consult Specialty:: GI Referred by:: Dr. Viridiana Monet Reason for Consultation:: Abdominal distention and abnormal LFTs - History of Present Illness Chief Complaint: Problems urinating per the patient History of Present Illness: 68M admitted for evaluation of failure to thrive. He has a history of follicular lymphoma s/p chemo (last 03/02 @ [facility] per patient). This had manifested as an intermittently bleeding duodenal ulcer that is not amenable to treatment here. He denies rectal bleeding / melena. He denies abdominal pain. Called to evaluate abnormal liver chemistries and distended abdomen. He has a 20 cm epigastric mass as well as other masses in the lower abdomen and pelvis. He denies known personal or family history of cliver disease. He has tattoos from multiple years prior. Recent screening hepatitis serologies 09-20-17 were unrevealing. It also revealed him to not have immunity to hepatitis B. He denies IVDA. He does describe heavy alcohol consumption 30-40 years prior. - History Source History Provided By: Patient, Medical Record - Past Medical History CHECK CLERK: Yes: CVA Cardio/Vascular: Yes: AFIB, CAD, HTN, Hyperlipdemia, Other (AVR) Pulmonary: Yes: COPD Gastrointestinal: Yes: GI Bleed (egd 07/17/17 DU (malignant ulcerated lymphoma), colonoscopyy 07/17 multiple polyps ), Other (Ulcerated malignant mass of the duodenum: lymphoma) Infectious Disease: Yes: MRSA - Past Surgical History Past Surgical History: Yes: Permanent Pacemaker, Valve Replacement - Alcohol/Substance Use Hx Alcohol Use: Yes (in past) History of Substance Use: reports: None - Smoking History Smoking history: Former smoker Have you smoked in the past 12 months: No Aproximately how many cigarettes per day: 10 If you are a former smoker, when did you quit?: 1981 - Social History Usual Living Arrangement: With Spouse ADL: Independent 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 Place of : [facility] History of Recent Travel: No Home Medications - Allergies Allergies/Adverse Reactions: Allergies Allergy/AdvReac Type Severity Reaction Status Date / Time No Known Drug Allergies Allergy Verified 05/26/18 11:57 - Home Medications Home Medications: Ambulatory Orders Atorvastatin Ca [Lipitor] 40 mg PO HS 01/12/17 levETIRAcetam [Keppra -] 500 mg PO BID tablet 02/24/17 Albuterol Sulfate Inhaler - [Ventolin Hfa Inhaler -] 2 inh PO QID PRN 11/10/17 Amlodipine Besylate 2.5 mg PO DAILY 11/10/17 Filgrastim [Neupogen] 480 mcg SQ HS 11/10/17 Fluconazole [Diflucan -] 400 mg PO DAILY 11/10/17 Folic Acid 1 mg PO DAILY 11/10/17 Pantoprazole Sodium 40 mg PO DAILY 11/10/17 Sulfamethoxazole/Trimethoprim [Bactrim Ds -] 1 tab PO ASDIR 11/10/17 Thiamine HCl [B-1] 100 mg PO DAILY 11/10/17 Valacyclovir HCl [Valtrex] 500 mg PO Q12H 11/10/17 Family Disease History - Family Disease History Other Family History: No family history of colorectal cancer or other GI malignancy Review of Systems - Review of Systems Constitutional: denies: Chills Cardiovascular: reports: Shortness of Breath. denies: Chest Pain Respiratory: reports: SOB on Exertion. denies: Cough Gastrointestinal: reports: Bloating. denies: Abdominal Pain, Diarrhea, Melena, Nausea, Rectal Bleeding Physical Exam-GI Vital Signs: Vital Signs Temperature 98.4 F 05/27/18 05:50 Pulse Rate 78 05/27/18 05:50 Respiratory Rate 20 05/27/18 09:00 Blood Pressure 116/67 05/27/18 05:50 O2 Sat by Pulse Oximetry (%) 97 05/27/18 09:00 Constitutional: Yes: Calm Eyes: No: Sclera Icterus Cardiovascular: Yes: Regular Rate and Rhythm Respiratory: Yes: Diminished (At left base) Gastrointestinal Inspection: Yes: Distention (Mildly protuberant, soft, fullness in upper abdomen), Scars ...Auscultate: Yes: Normoactive Bowel Sounds ...Palpate: Yes: Soft, Tenderness (Mild TTP left upper abdomen. No RUQ tenderness. Negative severino's sign) ...Percussion: No: Tympanitic Edema: No (No LE edema) Neurological: Yes: Alert Labs: CBC, BMP 05/27/18 07:59 05/27/18 07:59 Hepatic Panel Total Bilirubin 0.6 mg/dL (0.2-1) 05/27/18 07:59 AST 43 U/L (15-37) H 05/27/18 07:59 ALT 10 U/L (13-61) L 05/27/18 07:59 Alkaline Phosphatase 132 U/L (45-117) H 05/27/18 07:59 Albumin 3.3 g/dl (3.4-5.0) L 05/27/18 07:59 Imaging - Results Cat Scan: Report Reviewed, Image Reviewed Problem List - Problems (1) Abdominal distention Assessment/Plan: I suspect his large upper abdominal mass is contributing to abdominal distention as well as the multiple other lesions noted in the lower abdomen. I suspect this is contributing to his failure to thrive. Contact patient's oncologist at [facility]. Unclear what plan of care is as it appears as though his lymphoma is still active Evaluation of renal mass per PMD If there is concern of upper GI bleeding: known significant ulcerated mass in duodenum secondary to his lymphoma. This is not amenable to treatment here. Would need transfer to tertiary care center for further evaluation and treatment. Code(s): R14.0 - ABDOMINAL DISTENSION (GASEOUS) (2) Abnormal liver function tests Assessment/Plan: Mild elevattion of ALP and AST. Unclear if there is involvement of his lymphoma in the liver as well if this is medication induced, related to some degree of cardiac dysfunction, reactive from sepsis/UTI or combination of these multiple factors. Abdominal US to evaluate liver further Check repeat hepatitis A/B/C screening serologies Eliminate hepatotoxic agents as feasible Monitor LFTs. If concern that an obstructive pattern of forming, obstruction of biliary tract by the massive bulk of lymphoma would need to be considered. As he could not have an MRI secondary to PPM, he would need to be transferred to his tertiary care center for further evaluation, possible EUS / stentin or other intervention. Clarify goals of care Code(s): R94.5 - ABNORMAL RESULTS OF LIVER FUNCTION STUDIES
--- NOTE | 2018-05-27 13:55 | CON.PULM ---
Consult Consult Specialty:: PULMONARY Referred by:: Dr Monet Reason for Consultation:: pleural effusion - History of Present Illness Chief Complaint: altered mental status History of Present Illness: 68yo male with h/o HTN, hyperlipidemia, atrial fibrillation, h/o CVA CAD, COPD, follicular lymphoma who was admitted with generalized weakness and altered mental status. He was found to have a UTI as well as acute renal failure, started on antibiotics and IVF with improvement. Found to have a left pleural effusion with some compressive atelectasis. Denies shortness of breath, cough or wheezing. Denies fevers, chills or sweats but does endorse of some suprapubic discomfort. 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: CVA Cardio/Vascular: Yes: AFIB, CAD, HTN, Hyperlipdemia, Other (AVR) Pulmonary: Yes: COPD Gastrointestinal: Yes: GI Bleed (egd 07/17/17 DU (malignant ulcerated lymphoma), colonoscopyy 07/17 multiple polyps ), Other (Ulcerated malignant mass of the duodenum: lymphoma) Infectious Disease: Yes: MRSA - Past Surgical History Past Surgical History: Yes: Permanent Pacemaker, Valve Replacement - Alcohol/Substance Use Hx Alcohol Use: Yes (in past) History of Substance Use: reports: None - Smoking History Smoking history: Former smoker Have you smoked in the past 12 months: No Aproximately how many cigarettes per day: 10 If you are a former smoker, when did you quit?: 1981 - Social History Usual Living Arrangement: With Spouse ADL: Independent 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 History of Recent Travel: No Home Medications - Allergies Allergies/Adverse Reactions: Allergies Allergy/AdvReac Type Severity Reaction Status Date / Time No Known Drug Allergies Allergy Verified 05/26/18 11:57 - Home Medications Home Medications: Ambulatory Orders Atorvastatin Ca [Lipitor] 40 mg PO HS 01/12/17 levETIRAcetam [Keppra -] 500 mg PO BID tablet 02/24/17 Albuterol Sulfate Inhaler - [Ventolin Hfa Inhaler -] 2 inh PO QID PRN 11/10/17 Amlodipine Besylate 2.5 mg PO DAILY 11/10/17 Filgrastim [Neupogen] 480 mcg SQ HS 11/10/17 Fluconazole [Diflucan -] 400 mg PO DAILY 11/10/17 Folic Acid 1 mg PO DAILY 11/10/17 Pantoprazole Sodium 40 mg PO DAILY 11/10/17 Sulfamethoxazole/Trimethoprim [Bactrim Ds -] 1 tab PO ASDIR 11/10/17 Thiamine HCl [B-1] 100 mg PO DAILY 11/10/17 Valacyclovir HCl [Valtrex] 500 mg PO Q12H 11/10/17 Family Disease History - Family Disease History Other Family History: No family history of colorectal cancer or other GI malignancy Review of Systems - Review of Systems Constitutional: reports: Weakness. denies: Chills, Fever Eyes: denies: Recent Change in Vision HENT: denies: Throat Pain Neck: denies: Stiffness, Tenderness Cardiovascular: denies: Chest Pain, Shortness of Breath Respiratory: denies: Cough, Hemoptysis, Wheezing Gastrointestinal: reports: Abdominal Pain. denies: Nausea, Vomiting Genitourinary: denies: Dysuria Neurological: denies: Dizziness, Headache Endocrine: denies: Unexplained Weight Loss Physical Exam Vital Sings: Vital Signs Temperature 97.9 F 05/27/18 13:44 Pulse Rate 80 05/27/18 13:44 Respiratory Rate 18 05/27/18 13:44 Blood Pressure 120/71 05/27/18 13:44 O2 Sat by Pulse Oximetry (%) 97 05/27/18 09:00 Constitutional: Yes: Calm Eyes: Yes: Conjunctiva Clear, EOM Intact HENT: Yes: Atraumatic, Normocephalic Neck: Yes: Supple, Trachea Midline Cardiovascular: Yes: Regular Rate and Rhythm Respiratory: Yes: Diminished (decreased breath sounds at the bases) ...Clubbing: No Gastrointestinal: Yes: Normal Bowel Sounds, Soft. No: Tenderness Edema: No Labs: CBC, BMP 05/27/18 07:59 05/27/18 07:59 Imaging - Results Chest X-ray: Report Reviewed, Image Reviewed Cat Scan: Report Reviewed, Image Reviewed (small left effusion with compressive atelectasis) Problem List - Problems (1) UTI (urinary tract infection) Code(s): N39.0 - URINARY TRACT INFECTION, SITE NOT SPECIFIED Qualifiers: Urinary tract infection type: site unspecified Hematuria presence: without hematuria Qualified Code(s): N39.0 - Urinary tract infection, site not specified (2) JOSH (acute kidney injury) Code(s): N17.9 - ACUTE KIDNEY FAILURE, UNSPECIFIED (3) Lymphoma Code(s): C85.90 - NON-HODGKIN LYMPHOMA, UNSPECIFIED, UNSPECIFIED SITE Qualifiers: Lymphoma type: unspecified type Lymphoma site: unspecified region Qualified Code(s): C85.90 - Non-Hodgkin lymphoma, unspecified, unspecified site (4) Pleural effusion Code(s): J90 - PLEURAL EFFUSION, NOT ELSEWHERE CLASSIFIED (5) Atrial fibrillation Code(s): I48.91 - UNSPECIFIED ATRIAL FIBRILLATION Qualifiers: Atrial fibrillation type: persistent Qualified Code(s): I48.1 - Persistent atrial fibrillation (6) COPD (chronic obstructive pulmonary disease) Code(s): J44.9 - CHRONIC OBSTRUCTIVE PULMONARY DISEASE, UNSPECIFIED Qualifiers: COPD type: chronic bronchitis Assessment/Plan Altered Mental Status improving UTI Acute Kidney Injury +Troponins likely Demand Ischemia COPD Small Left Pleural Effusion likely reactive Atelectasis Atrial Fibrillation h/o CVA Follicular Lymphoma HTN Hyperlipidemia - IV antibiotics - f/u cultures - IVF - monitor urine output, creatinine - O2 to keep SpO2 >90% - inhaled bronchodilators as needed - pleural effusion small and likely reactive, continue to monitor for now - rate control - DVT prophylaxis Thank you for this consult Austin Carr MD
--- NOTE | 2018-05-27 14:17 | CON.CARD ---
Consult Consult Specialty:: Cardiology Referred by:: Dr. Monet Reason for Consultation:: CHF, afib and AVR - History of Present Illness Chief Complaint: Weakness History of Present Illness: 68 year-old man with a PMHx of HTN, hyperlipidemia, chronic atrial fibrillation , s/p PPM, s/p AVR, infection endocarditis, s/p redo tissue AVR, CVA, COPD, follicular lymphoma last chemo in February 2018 admitted 05/26/2018 with generalized weakness and altered mental status. He was found to have a UTI, abnormal LFTs as well as JOSH, started on antibiotics and IVF with improvement. Seen by GI, Renal and pulmonary. Left pleural effusion with some compressive atelectasis. He reports no chest pain, shortness of breath at rest, palpitation, dizziness/ lightheadedness, syncope or near syncope. Mild leg edema with venous stasis. No orthopnea or paroxysmal nocturnal dyspnea. Baseline exercise tolerance is limited. ECG 05/26/2018 atrial fibrillation and ventricular paced rhythm. Echo 01/12/2017. Moderate LV dilatation with normal systolic function. Normal RV. Moderate to severe LA dilatation. Moderate RA dilatation. AVR. Moderate MR. PASP = 40%. Pleural effusion. MUGA 04/21/2017: LVEF = 49%. 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: CVA Cardio/Vascular: Yes: AFIB, CAD, HTN, Hyperlipdemia, Other (AVR) Pulmonary: Yes: COPD Gastrointestinal: Yes: GI Bleed (egd 07/17/17 DU (malignant ulcerated lymphoma), colonoscopyy 07/17 multiple polyps ), Other (Ulcerated malignant mass of the duodenum: lymphoma) Infectious Disease: Yes: MRSA - Past Surgical History Past Surgical History: Yes: Permanent Pacemaker, Valve Replacement - Alcohol/Substance Use Hx Alcohol Use: Yes (in past) History of Substance Use: reports: None - Smoking History Smoking history: Former smoker Have you smoked in the past 12 months: No Aproximately how many cigarettes per day: 10 If you are a former smoker, when did you quit?: 1981 - Social History Usual Living Arrangement: With Spouse ADL: Independent 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 History of Recent Travel: No Home Medications - Allergies Allergies/Adverse Reactions: Allergies Allergy/AdvReac Type Severity Reaction Status Date / Time No Known Drug Allergies Allergy Verified 05/26/18 11:57 - Home Medications Home Medications: Ambulatory Orders Atorvastatin Ca [Lipitor] 40 mg PO HS 01/12/17 levETIRAcetam [Keppra -] 500 mg PO BID tablet 02/24/17 Albuterol Sulfate Inhaler - [Ventolin Hfa Inhaler -] 2 inh PO QID PRN 11/10/17 Amlodipine Besylate 2.5 mg PO DAILY 11/10/17 Filgrastim [Neupogen] 480 mcg SQ HS 11/10/17 Fluconazole [Diflucan -] 400 mg PO DAILY 11/10/17 Folic Acid 1 mg PO DAILY 11/10/17 Pantoprazole Sodium 40 mg PO DAILY 11/10/17 Sulfamethoxazole/Trimethoprim [Bactrim Ds -] 1 tab PO ASDIR 11/10/17 Thiamine HCl [B-1] 100 mg PO DAILY 11/10/17 Valacyclovir HCl [Valtrex] 500 mg PO Q12H 11/10/17 Family Disease History - Family Disease History Other Family History: No family history of colorectal cancer or other GI malignancy Review of Systems - Review of Systems Constitutional: reports: Lethargy, Loss of Appetite, Weakness Vital Signs: Vital Signs Temperature 97.9 F 05/27/18 13:44 Pulse Rate 80 05/27/18 13:44 Respiratory Rate 18 05/27/18 13:44 Blood Pressure 120/71 05/27/18 13:44 O2 Sat by Pulse Oximetry (%) 97 05/27/18 09:00 General: Well developed. Well nourished. No acute distress. Head: Normocephalic. Atraumatic, Eyes: PERRLA, EOMI. Sclerae anicteric. Conjunctivae clear. Neck: Supple. No JVD. No bruits. Heart: Normal S1, S2: Irregular rhythm and rate. III/ KELSI. Lungs: Poor air entry with low BP. No crackles. No wheezing or rhonchi. Abdomen: Soft. Bowel sound positive. Non tender. No masses. Extremities: Bilateral venous stasis with trace edema. . - Other Data Labs, Other Data: CBC, BMP 05/27/18 07:59 05/27/18 07:59 Troponin, BNP 05/26/18 05/27/18 05/27/18 14:40 01:00 07:59 Troponin I 0.13 H 0.13 H 0.12 H Troponin, BNP 05/26/18 05/27/18 05/27/18 14:40 01:00 07:59 Troponin I 0.13 H 0.13 H 0.12 H Assessment/Plan 68 year-old man with a PMHx of HTN, hyperlipidemia, CHF, chronic atrial fibrillation, s/p PPM, s/p AVR, infection endocarditis, s/p redo tissue AVR, CVA , COPD, follicular lymphoma last chemo in February 2018 admitted 05/26/2018 with generalized weakness and altered mental status. He was found to have a UTI, abnormal LFTs as well as JOSH, started on antibiotics and IVF with improvement. Seen by GI, Renal and pulmonary. Left pleural effusion with some compressive atelectasis. Previous cardiac tests: ECG 05/26/2018 atrial fibrillation and ventricular paced rhythm. Echo 01/12/2017. Moderate LV dilatation with normal systolic function. Normal RV. Moderate to severe LA dilatation. Moderate RA dilatation. AVR. Moderate MR. PASP = 40%. Pleural effusion. MUGA 04/21/2017: LVEF = 49%. 1) Chronic systolic CHF with dilatation LV and mildly reduced LV systolic function. No acute respiratory distress or significant fluid overload. May use diuretics as needed. Should be on beta-daniella and ARBs when BP is stable. May discontinue Norvasc. Repeat echocardiogram 2) Chronic atrial fibrillation with paced rhythm. High risk of CVA with a CHADS2 score of 4. Anticoagulation is recommended if no acute contraindication. 3) S/p Redo AVR with loud systolic ejection murmur. Repeat echo. We will follow.
[2018-05-27 15:54] LABS: ALBUMIN 2.5 g/dl (3.4-5.0); ALK PHOS 97 U/L (45-117); ANION GAP 14 MMOL/L (8-16); BILIRUBIN,TOTAL 0.4 mg/dL (0.2-1); BLOOD UREA NITROGEN 33 mg/dL (7-18); CALCIUM 8.1 mg/dL (8.5-10.1); CHLORIDE 116 mmol/L (98-107); CO2 18 mmol/L (21-32); CREATININE 1.1 mg/dL (0.55-1.3); GLUCOSE,RANDOM 50 mg/dL (74-106); POTASSIUM 3.5 mmol/L (3.5-5.1); SGOT/AST 37 U/L (15-37); SGPT/ALT 8 U/L (13-61); SODIUM 148 mmol/L (136-145); TOT PROT 4.9 g/dl (6.4-8.2)
[2018-05-27] MEDS: DEXTROSE 5%-NORMAL SALINE 1,000 ML IV SCH (18:56)
--- NOTE | 2018-05-27 19:21 | PN ---
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 will treat with zosyn continue isolation for MRSA josh-kidney function improving Problem List - Problems (1) UTI (urinary tract infection) Code(s): N39.0 - URINARY TRACT INFECTION, SITE NOT SPECIFIED Qualifiers: Urinary tract infection type: site unspecified Hematuria presence: without hematuria Qualified Code(s): N39.0 - Urinary tract infection, site not specified (2) Lymphoma Code(s): C85.90 - NON-HODGKIN LYMPHOMA, UNSPECIFIED, UNSPECIFIED SITE Qualifiers: Lymphoma type: unspecified type Lymphoma site: unspecified region Qualified Code(s): C85.90 - Non-Hodgkin lymphoma, unspecified, unspecified site (3) History of prosthetic aortic valve Code(s): Z95.2 - PRESENCE OF PROSTHETIC HEART VALVE (4) Pacemaker Code(s): Z95.0 - PRESENCE OF CARDIAC PACEMAKER (5) JOSH (acute kidney injury) Code(s): N17.9 - ACUTE KIDNEY FAILURE, UNSPECIFIED
[2018-05-27] MEDS ORDERED: PIPERACILLIN/TAZOBACTAM 3.375 GM VIAL IVPB ONE (21:11)
[2018-05-27] MEDS ORDERED: DEXTROSE 5%-WATER - 50 ML IVPB ONE (21:11)
[2018-05-27] MEDS: PIPERACILLIN/TAZOB 3.375 GM 3.375 GM in DEXTROSE 5%-WATER - 50 ML IVPB SCH (21:43)
[2018-05-27] MEDS: ATORVASTATIN CA 40 MG TABLET (FP) PO SCH (21:44)
[2018-05-27 22:16] LABS: URINE APPEARANCE CLOUDY; URINE COLOR AMBER; URINE GLUCOSE (UA) NEGATIVE (NEGATIVE); URINE KETONE TRACE (NEGATIVE); URINE LEUK ESTERASE 2+ (NEGATIVE); URINE NITRITE NEGATIVE (NEGATIVE); URINE PROTEIN 2+ (NEGATIVE); URINE UROBILINOGEN NEGATIVE mg/dL (0.2-1.0)
[2018-05-27 23:11] LABS: CALCIUM OXALATE CRYSTALS RARE /hpf (NONE SEEN); URINE BACTERIA RARE /hpf (NONE SEEN); URINE MUCUS RARE
--- NOTE | 2018-05-27 23:30 | CONSULT ---
Consult - text type - Consultation Consultation Note: Patient seen and examined 68 year old make with pmhx of COPD, transformed follicular lymphoma s/p chemotherapy, bleeding, anemia, prosthetc heart valve, endocarditis, a-fib and cva who presents with weakness and altered mental status. He was found to be in acute renal failure. He denies shortness of breath. he denies dysuria or hematuria. he was also found to have a uti. He denies fevers or chills. He complains of poor appetite. He is a poor historian. We have been consulted for h/o lymphoma. 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: CVA Cardio/Vascular: Yes: AFIB, CAD, HTN, Hyperlipdemia, Other (AVR) Pulmonary: Yes: COPD Gastrointestinal: Yes: GI Bleed (egd 07/17/17 DU, colonoscopyy 07/17 multiple polyps ), Peptic Ulcer Disease Infectious Disease: Yes: MRSA - Past Surgical History Past Surgical History: Yes: Valve Replacement - Alcohol/Substance Use History of Substance Use: reports: None - Smoking History Smoking history: Former smoker - Allergies Allergies/Adverse Reactions: Allergies Allergy/AdvReac Type Severity Reaction Status Date / Time No Known Drug Allergies Allergy Verified 05/26/18 11:57 - Home Medications Home Medications: Ambulatory Orders Atorvastatin Ca [Lipitor] 40 mg PO HS 01/12/17 levETIRAcetam [Keppra -] 500 mg PO BID tablet 02/24/17 Albuterol Sulfate Inhaler - [Ventolin Hfa Inhaler -] 2 inh PO QID PRN 11/10/17 Amlodipine Besylate 2.5 mg PO DAILY 11/10/17 Filgrastim [Neupogen] 480 mcg SQ HS 11/10/17 Fluconazole [Diflucan -] 400 mg PO DAILY 11/10/17 Folic Acid 1 mg PO DAILY 11/10/17 Pantoprazole Sodium 40 mg PO DAILY 11/10/17 Sulfamethoxazole/Trimethoprim [Bactrim Ds -] 1 tab PO ASDIR 11/10/17 Thiamine HCl [B-1] 100 mg PO DAILY 11/10/17 Valacyclovir HCl [Valtrex] 500 mg PO Q12H 11/10/17 Physical Exam Vital Signs: Vital Signs Temperature 98.4 F 05/27/18 05:50 Pulse Rate 78 05/27/18 05:50 Respiratory Rate 20 05/27/18 05:50 Blood Pressure 116/67 05/27/18 05:50 O2 Sat by Pulse Oximetry (%) 97 05/26/18 20:48 Constitutional: Yes: Calm Eyes: Yes: Conjunctiva Clear HENT: Yes: Atraumatic Cardiovascular: Yes: S1, S2 Respiratory: Yes: CTA Bilaterally Gastrointestinal: Yes: Ascites Renal/: Yes: WNL Musculoskeletal: Yes: Muscle Weakness Neurological: Yes: Confusion Labs/Meds reviewed Imaging - Results Chest X-ray: Report Reviewed A/P 68 y/o patient with transformed lymphoma, s/p CVP, s/p EPOCH Now with declining performance status/functional status/progressive disease will request palliative care consultation
--- NOTE | 2018-05-28 00:06 | CONS ---
DATE OF CONSULTATION: DATE OF DICTATION: 05/27/2018 INFECTIOUS DISEASE CONSULTATION HISTORY OF PRESENT ILLNESS: This is a 68-year-old man who was admitted on the . He presented to the emergency room with generalized weakness. He reports dysuria, decreased appetite. He felt unable to walk at home from his weakness. PAST MEDICAL HISTORY: Notable for follicular lymphoma and last received chemotherapy in February of 2018. I am asked to see him for possible UTI. The patient received Zosyn in the emergency room and had a CAT scan of the abdomen and pelvis. His past medical history is notable for a history of follicular lymphoma, recent large B cell lymphoma, history of chronic GI bleeding, hypertension, hyperlipidemia, paroxysmal atrial fibrillation, CHF, CVA, hiatal hernia, bleeding ulcer which has led to chronic GI bleeding asbestosis, remote history of strep endocarditis, seizure disorder. SURGICAL HISTORY: Notable for bioprosthetic aortic valve and a transverse arch repair. He has a history of a permanent pacemaker as well. ALLERGIES: No known drug allergies. MEDICATION: As an outpatient includes Keppra, Valtrex, thiamine, pantoprazole, folic acid, Lipitor, amlodipine, and albuterol. SOCIAL HISTORY: He resides at home with his . He is a former smoker, former alcohol user, none recently. REVIEW OF SYSTEMS: Notable for weakness, notable for dysuria. He tells me he has not been recently treated for urinary tract infection, and he denies any cough. PHYSICAL EXAMINATION: GENERAL: He is a fatigued appearing man in no acute distress. VITAL SIGNS: His T-max is 99.8, current temperature is 97.9, pulse of 81, blood pressure 125/73, respiratory rate 18, saturating 97% on room air. HEENT: Normocephalic. Eyes are anicteric. He has no thrush. CHEST: He has a permanent pacemaker, site of which is clean. He has a PICC line in his right upper arm without erythema. LUNGS: Diminished breath sounds at bases. HEART: Regular rate and rhythm. ABDOMEN: Soft, nontender. He has a Block in place. EXTREMITIES: Without edema. LABORATORY: Notable for white count of 9.2, hemoglobin 11.3, platelets of 124. Chemistries: BUN and creatinine on admission were 44 and 1.8, today are 33 and 1.1. Liver tests are notable for AST of 37, ALT of 8 with alkaline phosphatase of 97. Troponin of 0.12, albumin is 2.5. 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 His urinalysis has 2+ leukocytes with 4517 white cells. He had a CAT scan of his abdomen and pelvis done in the emergency room notable for moderate amount of ascites, a very large epigastric mass extending into the retroperitoneum consistent with a large lymph node, multiple left lower abdominal and upper pelvic masses consistent with additional nodes. He has a left pleural effusion. Right pericardial phrenic angle lymphadenopathy. He had a chest x-ray that shows no acute infiltrates. IMPRESSION: 1. In summary, this is a 68-year-old man with lymphoma currently not on chemotherapy, admitted with generalized weakness and dysuria, no fevers. Urinalysis is consistent with urinary tract infection. He has a prior history of Escherichia coli resistant to ceftriaxone. Would treat him with Zosyn at this time, continue isolation for his prior history of methicillin-resistant Staphylococcus aureus. 2. Acute kidney injury, kidney function is improving with Block and hydration. Overall prognosis is quite poor. LYNN KHAN M.D. [id number]
[2018-05-28] MEDS ORDERED: PIPERACILLIN/TAZOBACTAM 3.375 GM VIAL IVPB ONE ×3 (03:08→17:12)
[2018-05-28] MEDS ORDERED: DEXTROSE 5%-WATER - 50 ML IVPB ONE ×3 (03:09→17:12)
[2018-05-28] MEDS: PIPERACILLIN/TAZOB 3.375 GM 3.375 GM in DEXTROSE 5%-WATER - 50 ML IVPB SCH ×3 (03:16→17:16)
[2018-05-28 07:56] LABS: HEMATOCRIT 31.5 % (35.4-49); HEMOGLOBIN 11.1 GM/dL (11.7-16.9); MCH 35.1 pg (25.7-33.7); MCHC 35.3 g/dl (32.0-35.9); MEAN CELL VOLUME 99.6 fl (80-96); MEAN PLT VOLUME 10.1 fl (7.5-11.1); PLATELET COUNT 127 K/MM3 (134-434); RBC 3.17 M/mm3 (4.00-5.60); WHITE BLOOD COUNT 9.4 K/mm3 (4.0-10.0)
[2018-05-28 08:20] LABS: INR 1.18 (0.83-1.09); PROTHROMBIN TIME (PATIENT) 13.9 SEC (9.7-13.0)
[2018-05-28 08:37] LABS: ALBUMIN 3.2 g/dl (3.4-5.0); ALK PHOS 111 U/L (45-117); ANION GAP 10 MMOL/L (8-16); BILIRUBIN,TOTAL 0.8 mg/dL (0.2-1); BLOOD UREA NITROGEN 41 mg/dL (7-18); CALCIUM 10.8 mg/dL (8.5-10.1); CHLORIDE 109 mmol/L (98-107); CO2 20 mmol/L (21-32); CREATININE 1.3 mg/dL (0.55-1.3); GLUCOSE,RANDOM 79 mg/dL (74-106); POTASSIUM 4.1 mmol/L (3.5-5.1); SGOT/AST 46 U/L (15-37); SGPT/ALT 12 U/L (13-61); SODIUM 139 mmol/L (136-145); TOT PROT 6.2 g/dl (6.4-8.2)
[2018-05-28] MEDS ORDERED: PT OWN MED DRAWER 7, Y5N ONE ×2 (10:20→21:16)
[2018-05-28] MEDS: FOLIC ACID 1 MG TABLET (FP) PO SCH (10:37)
[2018-05-28] MEDS: valACYclovir HCL 500 MG TABLET (FP) PO SCH ×2 (10:37→21:25)
[2018-05-28] MEDS: HEPARIN NA (PORCINE) 5,000 UNITS/ML 1ML VIAL SQ SCH (10:37)
[2018-05-28] MEDS: PANTOPRAZOLE 40 MG TABLET (FP) PO SCH (10:37)
[2018-05-28] MEDS: amLODIPine BESYLATE 5 MG TABLET (FP) PO SCH (10:37)
[2018-05-28] MEDS: levETIRAcetam 500 MG TABLET (FP) PO SCH ×2 (10:37→21:25)
[2018-05-28] MEDS: THIAMINE HCL 100 MG TABLET (FP) PO SCH (10:38)
[2018-05-28] MEDS ORDERED: HEPARIN NA (PORCINE) 5,000 UNITS/ML 1ML VIAL IVPUSH PRN ×2 (12:03)
--- NOTE | 2018-05-28 12:06 | PN ---
Progress Note (short form) - Note Progress Note: PULMONARY APPEARS COMFORTABLE OFF O2 FAMILY PRESENT REFUSING LUNCH "I'M NOT HUNGRY" VSS/AFEBRILE PALE ANICTERIC CLEAR B/L LUNG MENJIVAR S1S2 PACED BS + SOFT NO EDEMA LABS/MEDS/NOTES/IMAGES/MICRO REVIEWED Altered Mental Status improved UTI/ESBL Acute Kidney Injury +Troponins likely Demand Ischemia COPD Small Left Pleural Effusion likely reactive Atelectasis Atrial Fibrillation h/o CVA Follicular Lymphoma HTN Hyperlipidemia - IV antibiotics - f/u cultures - IVF - monitor urine output, creatinine - O2 to keep SpO2 >90% - inhaled bronchodilators as needed - pleural effusion small and likely reactive, continue to monitor for now - rate control - DVT prophylaxis Braxton SCHMIDT MD
--- NOTE | 2018-05-28 12:48 | PN ---
Progress Note, Physician Chief Complaint: UTI JOSH Elevated troponin History of Present Illness: Previous notes and events reviewed awake and alert, increased confusion noted RLE US positive for DVT poor appetite noted - Current Medication List Current Medications: Active Medications Albuterol Sulfate (Ventolin 0.083% Nebulizer Soln -) 1 amp NEB Q6H PRN PRN Reason: SHORT OF BREATH/WHEEZING Amlodipine Besylate (Norvasc -) 2.5 mg PO DAILY DIANE Last Admin: 05/28/18 10:37 Dose: 2.5 mg Atorvastatin Calcium (Lipitor -) 40 mg PO HS DIANE Last Admin: 05/27/18 21:44 Dose: 40 mg Folic Acid (Folic Acid -) 1 mg PO DAILY DIANE Last Admin: 05/28/18 10:37 Dose: 1 mg Heparin Sodium (Porcine) (Heparin -) 1,000 unit IVPUSH PRN PRN PRN Reason: Heparin Heparin Sodium (Porcine) (Heparin -) 5,000 unit IVPUSH PRN PRN PRN Reason: Heparin Dextrose/Sodium Chloride (D5-Ns -) 1,000 mls @ 42 mls/hr IV ASDIR DIANE Last Admin: 05/27/18 18:56 Dose: 42 mls/hr Piperacillin Sod/Tazobactam (Sod 3.375 gm/ Dextrose) 50 mls @ 100 mls/hr IVPB Q8H-IV DIANE; Protocol Last Admin: 05/28/18 10:37 Dose: 100 mls/hr Heparin Sodium (Porcine) 25, (000 unit/ Sodium Chloride) 500 mls @ 20 mls/hr IV TITR DIANE; Protocol Levetiracetam (Keppra -) 500 mg PO BID DIANE Last Admin: 05/28/18 10:37 Dose: 500 mg Pantoprazole Sodium (Protonix -) 40 mg PO DAILY DIANE Last Admin: 05/28/18 10:37 Dose: 40 mg Thiamine HCl (Vitamin B1 -) 100 mg PO DAILY DIANE Last Admin: 05/28/18 10:38 Dose: 100 mg Valacyclovir HCl (Valtrex -) 500 mg PO BID DIANE Last Admin: 05/28/18 10:37 Dose: 500 mg - Objective Vital Signs: Vital Signs Temperature 98.4 F 05/28/18 09:00 Pulse Rate 80 05/28/18 09:00 Respiratory Rate 20 05/28/18 09:00 Blood Pressure 112/67 05/28/18 09:00 O2 Sat by Pulse Oximetry (%) 96 05/28/18 09:00 Constitutional: Yes: Calm, Mild Distress Eyes: Yes: Conjunctiva Clear HENT: Yes: Atraumatic Cardiovascular: Yes: Regular Rate and Rhythm Respiratory: Yes: Regular, Diminished Gastrointestinal: Yes: Normal Bowel Sounds, Soft, Ascites, Other (non tender) Genitourinary: Yes: Incontinence Musculoskeletal: Yes: Muscle Weakness Extremities: Yes: WNL Edema: No Neurological: Yes: Alert, Confusion Psychiatric: Yes: Alert Labs: CBC, BMP 05/28/18 07:30 05/28/18 07:30 INR, PTT INR 1.18 (0.83-1.09) H 05/28/18 07:30 Microbiology 05/26/18 15:12 Urine - Urine Clean Catch Urine Culture - Final Escherichia Coli Esbl Top Dyeing Machine Tender 05/27/18 06:50 Nares - Mrsa Screen - Left MRSA Screen - Final NO MRSA ISOLATED 05/27/18 06:50 Nares - Mrsa Screen - Right MRSA Screen - Final NO MRSA ISOLATED 05/26/18 14:40 Blood - Peripheral Venous Blood Culture - Preliminary NO GROWTH OBTAINED AFTER 24 HOURS, INCUBATION TO CONTINUE FOR 4 DAYS. 05/26/18 14:40 Blood - Peripheral Venous Blood Culture - Preliminary NO GROWTH OBTAINED AFTER 24 HOURS, INCUBATION TO CONTINUE FOR 4 DAYS. Problem List - Problems (1) Lymphoma Assessment/Plan: -heme/onc on board -CT scan shows very large mid epigastric mass extending into the retroperitineumconsistent with a large lymph node mass, right pericardiophrenic angle lymphadenopathy, multiple left lower abdominal and upper pelvic masses consistent with additional neoplastic process Code(s): C85.90 - NON-HODGKIN LYMPHOMA, UNSPECIFIED, UNSPECIFIED SITE Qualifiers: Lymphoma type: unspecified type Lymphoma site: unspecified region Qualified Code(s): C85.90 - Non-Hodgkin lymphoma, unspecified, unspecified site (2) UTI (urinary tract infection) Assessment/Plan: -ID consult placed -afebrile -no leukocytosis, wbc 9.4 -UA show 3+ protein, 1+ blood, 2+ leuks, UC positive for lactose fermenting neg bacilli Code(s): N39.0 - URINARY TRACT INFECTION, SITE NOT SPECIFIED Qualifiers: Urinary tract infection type: site unspecified Hematuria presence: without hematuria Qualified Code(s): N39.0 - Urinary tract infection, site not specified (3) HTN (hypertension) Assessment/Plan: -low Na diet -amlodipine Code(s): I10 - ESSENTIAL (PRIMARY) HYPERTENSION Qualifiers: Hypertension type: essential hypertension Qualified Code(s): I10 - Essential (primary) hypertension (4) Troponin level elevated Assessment/Plan: -troponin 0.11, hx of elev trop -will monitor trop for downtrend -cardiology on board Code(s): R74.8 - ABNORMAL LEVELS OF OTHER SERUM ENZYMES (5) Retroperitoneal mass Assessment/Plan: -GI on board -elev AST 46 -CT scan show very large mid epigastric mass extending into the retroperitoneum consistent with a large lymph node mass, multiple left lower abdominal and upper pelvic masses consistent with additional neoplastic process -heme/onc on board -Abdominal US shows ascites in upper abdomen, liver is slightly enlarged, it is hyperechoic in texture consistent with with diffuse fatty liver infiltration, , no discrete mass is identified within the liver, pancreas cannot be visualized due to large midline mass Code(s): R19.00 - INTRA-ABD AND PELVIC SWELLING, MASS AND LUMP, UNSP SITE (6) JOSH (acute kidney injury) Assessment/Plan: -renal on board -BUN/Cr 40/1.3 -monitor renal function daily Code(s): N17.9 - ACUTE KIDNEY FAILURE, UNSPECIFIED (7) Pleural effusion Assessment/Plan: -CT scan shows Left pleural effusion and basilar atelectasis -pulm consult -O2 via NC prn for SOB -albuterol prn for SOB Code(s): J90 - PLEURAL EFFUSION, NOT ELSEWHERE CLASSIFIED (8) DVT (deep venous thrombosis) Assessment/Plan: -Vascular US RLE shows extensive deep venous thrombosis within the common, deep , and superficial femoral veins, as well as the popliteal and posterior tibial veins, thrombus is also noted in greater saphenous vein. -started on Heparin drip, PTT ordered STAT before starting -serial PTT -Echocardiogram -cardiology on board -hematology on board Code(s): I82.409 - ACUTE EMBOLISM AND THOMBOS UNSP DEEP VN UNSP LOWER EXTREMITY
[2018-05-28] MEDS ORDERED: HEPARIN - 25,000 UNIT in SODIUM CHLORIDE 495 ML IV SCH (13:00)
--- NOTE | 2018-05-28 14:53 | PN ---
Progress Note, Physician Chief Complaint: Patient has altered mental status. No acute respiratory distress. History of Present Illness: 68 year-old man with a PMHx of HTN, hyperlipidemia, chronic atrial fibrillation , s/p PPM, s/p first AVR in 2008 at [facility] with infection endocarditis, s/p redo tissue AVR 2010 at [facility], CVA, COPD , follicular lymphoma last chemo in February 2018 admitted 05/26/2018 with generalized weakness and altered mental status. He was found to have a UTI, abnormal LFTs as well as JOSH, started on antibiotics and IVF with improvement. Seen by GI, Renal and pulmonary. Left pleural effusion with some compressive atelectasis. He reports no chest pain, shortness of breath at rest, palpitation, dizziness/ lightheadedness, syncope or near syncope. Mild leg edema with venous stasis. No orthopnea or paroxysmal nocturnal dyspnea. Baseline exercise tolerance is limited. ECG 05/26/2018 atrial fibrillation and ventricular paced rhythm. Echo 01/12/2017. Moderate LV dilatation with normal systolic function. Normal RV. Moderate to severe LA dilatation. Moderate RA dilatation. AVR. Moderate MR. PASP = 40%. Pleural effusion. MUGA 04/21/2017: LVEF = 49%. LE Duplex 05/28/2018: Extensive RLE DVTs. CT head 05/28/2018: Chronic right temporoparietal cortical infarct. No acute hemorrhage or ischemia. - Current Medication List Current Medications: Active Medications Albuterol Sulfate (Ventolin 0.083% Nebulizer Soln -) 1 amp NEB Q6H PRN PRN Reason: SHORT OF BREATH/WHEEZING Amlodipine Besylate (Norvasc -) 2.5 mg PO DAILY [facility] Last Admin: 05/28/18 10:37 Dose: 2.5 mg Atorvastatin Calcium (Lipitor -) 40 mg PO HS [facility] Last Admin: 05/27/18 21:44 Dose: 40 mg Folic Acid (Folic Acid -) 1 mg PO DAILY [facility] Last Admin: 05/28/18 10:37 Dose: 1 mg Heparin Sodium (Porcine) (Heparin -) 1,000 unit IVPUSH PRN PRN PRN Reason: Heparin Heparin Sodium (Porcine) (Heparin -) 5,000 unit IVPUSH PRN PRN PRN Reason: Heparin Dextrose/Sodium Chloride (D5-Ns -) 1,000 mls @ 42 mls/hr IV ASDIR [facility] Last Admin: 05/27/18 18:56 Dose: 42 mls/hr Piperacillin Sod/Tazobactam (Sod 3.375 gm/ Dextrose) 50 mls @ 100 mls/hr IVPB Q8H-IV [facility]; Protocol Last Admin: 05/28/18 10:37 Dose: 100 mls/hr Heparin Sodium (Porcine) 25, (000 unit/ Sodium Chloride) 500 mls @ 20 mls/hr IV TITR [facility]; Protocol Levetiracetam (Keppra -) 500 mg PO BID [facility] Last Admin: 05/28/18 10:37 Dose: 500 mg Pantoprazole Sodium (Protonix -) 40 mg PO DAILY [facility] Last Admin: 05/28/18 10:37 Dose: 40 mg Thiamine HCl (Vitamin B1 -) 100 mg PO DAILY [facility] Last Admin: 05/28/18 10:38 Dose: 100 mg Valacyclovir HCl (Valtrex -) 500 mg PO BID [facility] Last Admin: 05/28/18 10:37 Dose: 500 mg - Objective Vital Signs: Vital Signs Temperature 98.4 F 05/28/18 09:00 Pulse Rate 80 05/28/18 09:00 Respiratory Rate 20 05/28/18 09:00 Blood Pressure 112/67 05/28/18 09:00 O2 Sat by Pulse Oximetry (%) 96 05/28/18 09:00 General: Well developed. Well nourished. No acute distress. Head: Normocephalic. Atraumatic, Eyes: PERRLA, EOMI. Sclerae anicteric. Conjunctivae clear. Neck: Supple. No JVD. No bruits. Heart: Normal S1, S2: Irregular rhythm and rate. III/ KELSI. Lungs: Poor air entry with low BP. No crackles. No wheezing or rhonchi. Abdomen: Soft. Bowel sound positive. Non tender. No masses. Extremities: Bilateral venous stasis with trace edema Labs: CBC, BMP 05/28/18 07:30 05/28/18 07:30 INR, PTT INR 1.18 (0.83-1.09) H 05/28/18 07:30 Assessment/Plan 68 year-old man with a PMHx of HTN, hyperlipidemia, chronic atrial fibrillation , s/p PPM, s/p first AVR in 2008 at [facility] with infection endocarditis, s/p redo tissue AVR 2011 at [facility], CVA, COPD , follicular lymphoma last chemo in February 2018 admitted 05/26/2018 with generalized weakness and altered mental status. He was found to have a UTI, abnormal LFTs as well as JOSH, started on antibiotics and IVF with improvement. Seen by GI, Renal and pulmonary. Left pleural effusion with some compressive atelectasis. ECG 05/26/2018 atrial fibrillation and ventricular paced rhythm. Echo 01/12/2017. Moderate LV dilatation with normal systolic function. Normal RV. Moderate to severe LA dilatation. Moderate RA dilatation. AVR. Moderate MR. PASP = 40%. Pleural effusion. MUGA 04/21/2017: LVEF = 49%. LE Duplex 05/28/2018: Extensive RLE DVTs. CT head 05/28/2018: Chronic right temporoparietal cortical infarct. No acute hemorrhage or ischemia. 1) Chronic systolic CHF with dilatation LV and mildly reduced LV systolic function. No acute respiratory distress or significant fluid overload. May use diuretics as needed. Should be on beta-daniella and ARBs when BP is stable. May discontinue Norvasc. Repeat echocardiogram 2) Chronic atrial fibrillation with paced rhythm. Also evidence of extensive right LE DVTs. High risk of CVA with a CHADS2 score of 4. Anticoagulation is recommended. May use IV heparin followed by Warfarin or NOACs. 3) S/p Redo AVR with loud systolic ejection murmur. Repeat echo. We will follow.
--- NOTE | 2018-05-28 15:50 | ECHO ---
Name: LATASHA GRETEL High, Exam:Adult Echocardiogram Study Date: 05/28/2018 02:01 PM Age: 68 yrs Reason For Study: DVT OF RLE Height: 72 in Weight: 191 lb BSA: 2.1 m2 MMode/2D Measurements & Calculations IVSd: 0.89 cm Ao root diam: 2.5 cm LVIDd: 4.5 cm LVIDs: 2.8 cm LVPWd: 0.76 cm EDV(Teich): 91.0 ml LVOT diam: 2.2 cm ESV(Teich): 30.3 ml Doppler Measurements & Calculations MV E max matias: 76.0 cm/sec MVA(VTI): 1.8 cm2 MV A max matias: 24.7 cm/sec MV V2 max: 129.0 cm/sec MV E/A: 3.1 MV max P.7 mmHg MV dec time: 0.21 sec MV V2 mean: 70.4 cm/sec MV mean P.0 mmHg MV V2 VTI: 25.3 cm Ao V2 max: 194.8 cm/sec AI max matias: 307.3 cm/sec Ao max P.2 mmHg AI max P.5 mmHg Ao V2 mean: 119.0 cm/sec AI dec slope: 225.3 cm/sec2 Ao mean P.8 mmHg Ao V2 VTI: 27.8 cm TALHA(I,D): 1.6 cm2 AI P1/2t: 399.5 msec TALHA(V,D): 1.5 cm2 LV V1 max P.4 mmHg MR max matias: 270.0 cm/sec LV V1 mean P.0 mmHg MR max P.1 mmHg LV V1 max: 77.3 cm/sec LV V1 mean: 45.3 cm/sec LV V1 VTI: 11.8 cm SV(LVOT): 44.9 ml TR max matias: 220.0 cm/sec TR max P.7 mmHg Med Peak E' Matias: 11.3 cm/sec Med E/e': 6.7 Lat Peak E' Matias: 15.5 cm/sec Lat E/e': 4.9 Left Ventricle Left ventricular systolic function is grossly normal. Septal motion is consistent with post-operative state. Right Ventricle There is a pacemaker lead in the right ventricle. Atria Normal left and right atrial size and function. Mitral Valve There is mild to moderate mitral valve thickening. There is no mitral valve stenosis. There is mild m itral regurgitation. Tricuspid Valve The tricuspid valve is not well visualized, but is grossly normal. Aortic Valve There is a bioprosthetic aortic valve. No hemodynamically significant valvular aortic stenosis. Mild to moderate aortic regurgitation. Pulmonic Valve The pulmonic valve is not well seen, but is grossly normal. There is no pulmonic valvular stenosis. Great Vessels The aortic root is not well visualized. Pericardium/Pleura There is no pericardial effusion. Interpretation Summary Left ventricular systolic function is grossly normal. Septal motion is consistent with post-operative state. There is a pacemaker lead in the right ventricle. There is mild to moderate mitral valve thickening. There is mild mitral regurgitation. There is a bioprosthetic aortic valve. Mild to moderate aortic regurgitation. There is no pericardial effusion. MD Wilson *German 05/28/2018 03:49 PM
--- NOTE | 2018-05-28 19:13 | PN ---
Progress Note (short form) - Note Progress Note: confused new diagnosis of extensive DVT Vital Signs Period Temp Pulse Resp BP Sys/Lugo Pulse Ox Last 24 Hr 97.9 F-98.4 F 80-81 18-20 106-125/60-73 96-97 cor-rrr lungs clear abd soft,nt ext no edema hale CBC, BMP 05/28/18 07:30 05/28/18 07:30 Microbiology 05/28/18 12:50 Stool Clostridioides difficile Antigen - Final 05/28/18 12:50 Stool Clostridioides difficile Toxin Assay - Final 05/26/18 14:40 Blood - Peripheral Venous Blood Culture - Preliminary NO GROWTH OBTAINED AFTER 48 HOURS, INCUBATION TO CONTINUE FOR 3 DAYS. 05/26/18 14:40 Blood - Peripheral Venous Blood Culture - Preliminary NO GROWTH OBTAINED AFTER 48 HOURS, INCUBATION TO CONTINUE FOR 3 DAYS. 05/26/18 15:12 Urine - Urine Clean Catch Urine Culture - Final Escherichia Coli Esbl Liaison Planner 05/27/18 06:50 Nares - Mrsa Screen - Left MRSA Screen - Final NO MRSA ISOLATED 05/27/18 06:50 Nares - Mrsa Screen - Right MRSA Screen - Final NO MRSA ISOLATED a/p transformed lymphoma- doing poorly new DVT ecoli esbl uti-- will continue zosyn as he has seizure disorder and carbapenems may lower his seizure threshold needs palliative care consult Problem List - Problems (1) UTI (urinary tract infection) Code(s): N39.0 - URINARY TRACT INFECTION, SITE NOT SPECIFIED Qualifiers: Urinary tract infection type: site unspecified Hematuria presence: without hematuria Qualified Code(s): N39.0 - Urinary tract infection, site not specified (2) Lymphoma Code(s): C85.90 - NON-HODGKIN LYMPHOMA, UNSPECIFIED, UNSPECIFIED SITE Qualifiers: Lymphoma type: unspecified type Lymphoma site: unspecified region Qualified Code(s): C85.90 - Non-Hodgkin lymphoma, unspecified, unspecified site (3) History of prosthetic aortic valve Code(s): Z95.2 - PRESENCE OF PROSTHETIC HEART VALVE (4) Pacemaker Code(s): Z95.0 - PRESENCE OF CARDIAC PACEMAKER (5) JOSH (acute kidney injury) Code(s): N17.9 - ACUTE KIDNEY FAILURE, UNSPECIFIED
--- NOTE | 2018-05-28 20:43 | PN ---
Progress Note (short form) - Note Progress Note: Problems 1. JOSH 2. UTI 3. follicular lymphoma 4. endocarditis s/p valve replacement 5. a-fib 6. cva 7. htn 8. hld 9. COPD Current Medications Albuterol Sulfate (Ventolin 0.083% Nebulizer Soln -) 1 amp NEB Q6H PRN PRN Reason: SHORT OF BREATH/WHEEZING Amlodipine Besylate (Norvasc -) 2.5 mg PO DAILY [facility] Last Admin: 05/28/18 10:37 Dose: 2.5 mg Atorvastatin Calcium (Lipitor -) 40 mg PO HS [facility] Last Admin: 05/27/18 21:44 Dose: 40 mg Folic Acid (Folic Acid -) 1 mg PO DAILY [facility] Last Admin: 05/28/18 10:37 Dose: 1 mg Heparin Sodium (Porcine) (Heparin -) 1,000 unit IVPUSH PRN PRN PRN Reason: Heparin Heparin Sodium (Porcine) (Heparin -) 5,000 unit IVPUSH PRN PRN PRN Reason: Heparin Last Admin: 05/28/18 18:24 Dose: 5,000 unit Dextrose/Sodium Chloride (D5-Ns -) 1,000 mls @ 42 mls/hr IV ASDIR [facility] Last Admin: 05/27/18 18:56 Dose: 42 mls/hr Piperacillin Sod/Tazobactam (Sod 3.375 gm/ Dextrose) 50 mls @ 100 mls/hr IVPB Q8H-IV [facility]; Protocol Last Admin: 05/28/18 17:16 Dose: 100 mls/hr Heparin Sodium (Porcine) 25, (000 unit/ Sodium Chloride) 500 mls @ 20 mls/hr IV TITR [facility]; Protocol Last Titration: 05/28/18 18:24 Dose: 1,150 unit/hr, 23 mls/hr Levetiracetam (Keppra -) 500 mg PO BID [facility] Last Admin: 05/28/18 10:37 Dose: 500 mg Pantoprazole Sodium (Protonix -) 40 mg PO DAILY [facility] Last Admin: 05/28/18 10:37 Dose: 40 mg Thiamine HCl (Vitamin B1 -) 100 mg PO DAILY [facility] Last Admin: 05/28/18 10:38 Dose: 100 mg Valacyclovir HCl (Valtrex -) 500 mg PO BID [facility] Last Admin: 05/28/18 10:37 Dose: 500 mg Last Vital Signs Temp Pulse Resp BP Pulse Ox 98.4 F 80 20 106/60 96 05/28/18 15:33 05/28/18 15:33 05/28/18 09:00 05/28/18 15:33 05/28/18 09:00 CBC, BMP 05/28/18 07:30 05/28/18 07:30 IMP- stable prerenal azotemia - renal function CONTINUES TO IMPROVE PLAN- continue same rx
[2018-05-28] MEDS: ATORVASTATIN CA 40 MG TABLET (FP) PO SCH (21:25)
[2018-05-29] MEDS ORDERED: PIPERACILLIN/TAZOBACTAM 3.375 GM VIAL IVPB ONE ×3 (02:30→17:03)
[2018-05-29] MEDS ORDERED: DEXTROSE 5%-WATER - 50 ML IVPB ONE ×3 (02:30→17:04)
[2018-05-29] MEDS: PIPERACILLIN/TAZOB 3.375 GM 3.375 GM in DEXTROSE 5%-WATER - 50 ML IVPB SCH ×3 (02:39→17:55)
[2018-05-29] MEDS ORDERED: PT OWN MED DRAWER 7, Y5N ONE (10:22)
[2018-05-29] MEDS: amLODIPine BESYLATE 5 MG TABLET (FP) PO SCH (10:33)
[2018-05-29] MEDS: levETIRAcetam 500 MG TABLET (FP) PO SCH ×2 (10:33→21:50)
[2018-05-29] MEDS: FOLIC ACID 1 MG TABLET (FP) PO SCH (10:33)
[2018-05-29] MEDS: PANTOPRAZOLE 40 MG TABLET (FP) PO SCH (10:33)
[2018-05-29] MEDS: valACYclovir HCL 500 MG TABLET (FP) PO SCH ×2 (10:34→21:52)
[2018-05-29] MEDS: THIAMINE HCL 100 MG TABLET (FP) PO SCH (10:34)
--- NOTE | 2018-05-29 11:57 | PN ---
Progress Note, Physician Chief Complaint: JOSH UTI Elevated troponin History of Present Illness: NAD labs pending On IV abx for UTI Seen by ID - Current Medication List Current Medications: Active Medications Albuterol Sulfate (Ventolin 0.083% Nebulizer Soln -) 1 amp NEB Q6H PRN PRN Reason: SHORT OF BREATH/WHEEZING Amlodipine Besylate (Norvasc -) 2.5 mg PO DAILY [facility] Last Admin: 05/29/18 10:33 Dose: 2.5 mg Atorvastatin Calcium (Lipitor -) 40 mg PO HS [facility] Last Admin: 05/28/18 21:25 Dose: 40 mg Folic Acid (Folic Acid -) 1 mg PO DAILY [facility] Last Admin: 05/29/18 10:33 Dose: 1 mg Heparin Sodium (Porcine) (Heparin -) 1,000 unit IVPUSH PRN PRN PRN Reason: Heparin Heparin Sodium (Porcine) (Heparin -) 5,000 unit IVPUSH PRN PRN PRN Reason: Heparin Last Admin: 05/28/18 18:24 Dose: 5,000 unit Dextrose/Sodium Chloride (D5-Ns -) 1,000 mls @ 42 mls/hr IV ASDIR [facility] Last Admin: 05/27/18 18:56 Dose: 42 mls/hr Piperacillin Sod/Tazobactam (Sod 3.375 gm/ Dextrose) 50 mls @ 100 mls/hr IVPB Q8H-IV [facility]; Protocol Last Admin: 05/29/18 10:34 Dose: 100 mls/hr Heparin Sodium (Porcine) 25, (000 unit/ Sodium Chloride) 500 mls @ 20 mls/hr IV TITR [facility]; Protocol Last Titration: 05/29/18 01:00 Dose: 1,150 unit/hr, 23 mls/hr Levetiracetam (Keppra -) 500 mg PO BID [facility] Last Admin: 05/29/18 10:33 Dose: 500 mg Pantoprazole Sodium (Protonix -) 40 mg PO DAILY [facility] Last Admin: 05/29/18 10:33 Dose: 40 mg Thiamine HCl (Vitamin B1 -) 100 mg PO DAILY [facility] Last Admin: 05/29/18 10:34 Dose: 100 mg Valacyclovir HCl (Valtrex -) 500 mg PO BID [facility] Last Admin: 05/29/18 10:34 Dose: 500 mg - Objective Vital Signs: Vital Signs Temperature 98.0 F 05/29/18 06:18 Pulse Rate 80 05/29/18 06:18 Respiratory Rate 20 05/29/18 06:18 Blood Pressure 147/85 05/29/18 06:18 O2 Sat by Pulse Oximetry (%) 96 05/28/18 21:00 Constitutional: Yes: Well Nourished, No Distress, Calm Cardiovascular: Yes: Regular Rate and Rhythm Respiratory: Yes: Regular Gastrointestinal: Yes: Normal Bowel Sounds, Soft Musculoskeletal: Yes: Muscle Weakness Extremities: Yes: WNL Edema: No Peripheral Pulses WNL: Yes Neurological: Yes: Alert, Oriented Psychiatric: Yes: Alert, Oriented Labs: CBC, BMP 05/28/18 07:30 05/28/18 07:30 INR, PTT INR 1.18 (0.83-1.09) H 05/28/18 07:30 Problem List - Problems (1) JOSH (acute kidney injury) Assessment/Plan: -2/2 to UTI -Nephrology on board -monitor trend -labs pending today Code(s): N17.9 - ACUTE KIDNEY FAILURE, UNSPECIFIED (2) DVT (deep venous thrombosis) Assessment/Plan: -BLLE -Is on heparin drip -Unable to draw bloods for PTT monitoring from PICC -D/C heparin drip, start Lovenox 90 mcg BID -Hematology already on board Code(s): I82.409 - ACUTE EMBOLISM AND THOMBOS UNSP DEEP VN UNSP LOWER EXTREMITY (3) Pleural effusion Assessment/Plan: -CT scan shows Left pleural effusion and basilar atelectasis -pulm consult -Nasal O2 -Bronchodilators Code(s): J90 - PLEURAL EFFUSION, NOT ELSEWHERE CLASSIFIED (4) UTI (urinary tract infection) Assessment/Plan: -ID consult -afebrile -no leukocytosis, wbc 9.4 -UA show 3+ protein, 1+ blood, 2+ leuks, UC positive for lactose fermenting neg bacilli -UC: Microbiology 05/28/18 12:50 Stool Clostridioides difficile Antigen - Final 05/28/18 12:50 Stool Clostridioides difficile Toxin Assay - Final 05/26/18 14:40 Blood - Peripheral Venous Blood Culture - Preliminary NO GROWTH OBTAINED AFTER 48 HOURS, INCUBATION TO CONTINUE FOR 3 DAYS. 05/26/18 14:40 Blood - Peripheral Venous Blood Culture - Preliminary NO GROWTH OBTAINED AFTER 48 HOURS, INCUBATION TO CONTINUE FOR 3 DAYS. 05/26/18 15:12 Urine - Urine Clean Catch Urine Culture - Final Escherichia Coli Esbl Finance Effectiveness Manager 05/27/18 06:50 Nares - Mrsa Screen - Left MRSA Screen - Final NO MRSA ISOLATED 05/27/18 06:50 Nares - Mrsa Screen - Right MRSA Screen - Final NO MRSA ISOLATED Code(s): N39.0 - URINARY TRACT INFECTION, SITE NOT SPECIFIED Qualifiers: Urinary tract infection type: site unspecified Hematuria presence: without hematuria Qualified Code(s): N39.0 - Urinary tract infection, site not specified (5) Anemia Assessment/Plan: -stable -monitor trend Code(s): D64.9 - ANEMIA, UNSPECIFIED Qualifiers: Anemia type: other cause Other causes of anemia: other cause, not classified Qualified Code(s): D64.89 - Other specified anemias (6) Lymphoma Assessment/Plan: -heme/onc on board -CT scan shows very large mid epigastric mass extending into the retroperitineumconsistent with a large lymph node mass, right pericardiophrenic angle lymphadenopathy, multiple left lower abdominal and upper pelvic masses consistent with additional neoplastic process Code(s): C85.90 - NON-HODGKIN LYMPHOMA, UNSPECIFIED, UNSPECIFIED SITE Qualifiers: Lymphoma type: unspecified type Lymphoma site: unspecified region Qualified Code(s): C85.90 - Non-Hodgkin lymphoma, unspecified, unspecified site (7) Retroperitoneal mass Assessment/Plan: -GI on board -CT scan show very large mid epigastric mass extending into the retroperitoneum consistent with a large lymph node mass, multiple left lower abdominal and upper pelvic masses consistent with additional neoplastic process -heme/onc on board -Abdominal US shows ascites in upper abdomen, liver is slightly enlarged, it is hyperechoic in texture consistent with with diffuse fatty liver infiltration, , no discrete mass is identified within the liver, pancreas cannot be visualized due to large midline mass Code(s): R19.00 - INTRA-ABD AND PELVIC SWELLING, MASS AND LUMP, UNSP SITE (8) Troponin level elevated Assessment/Plan: -trending down -Seen by Cardiology Code(s): R74.8 - ABNORMAL LEVELS OF OTHER SERUM ENZYMES Assessment/Plan See problem list Physical therapy
[2018-05-29 12:31] LABS: ALBUMIN 3.2 g/dl (3.4-5.0); ALK PHOS 111 U/L (45-117); ANION GAP 11 MMOL/L (8-16); BILIRUBIN,TOTAL 0.7 mg/dL (0.2-1); BLOOD UREA NITROGEN 47 mg/dL (7-18); CALCIUM 10.7 mg/dL (8.5-10.1); CHLORIDE 111 mmol/L (98-107); CO2 21 mmol/L (21-32); GLUCOSE,RANDOM 105 mg/dL (74-106); POTASSIUM 3.9 mmol/L (3.5-5.1); SGOT/AST 49 U/L (15-37); SGPT/ALT 13 U/L (13-61); SODIUM 143 mmol/L (136-145); TOT PROT 6.5 g/dl (6.4-8.2)
--- NOTE | 2018-05-29 13:50 | PN ---
Progress Note (short form) - Note Progress Note: PULMONARY Denies shortness of breath or chest pain. Vital Signs Period Temp Pulse Resp BP Sys/Lugo Pulse Ox Last 24 Hr 98.0 F-98.4 F 80-80 20-20 106-147/60-85 96 Gen: NAD at rest Heart: RRR Lung: decreased breath sounds at the bases Abd: soft, nontender Ext: no edema CBC, BMP 05/28/18 07:30 05/29/18 10:46 Active Medications Albuterol Sulfate (Ventolin 0.083% Nebulizer Soln -) 1 amp NEB Q6H PRN PRN Reason: SHORT OF BREATH/WHEEZING Amlodipine Besylate (Norvasc -) 2.5 mg PO DAILY [facility] Last Admin: 05/29/18 10:33 Dose: 2.5 mg Atorvastatin Calcium (Lipitor -) 40 mg PO HS [facility] Last Admin: 05/28/18 21:25 Dose: 40 mg Enoxaparin Sodium (Lovenox -) 90 mg SQ BID [facility] Folic Acid (Folic Acid -) 1 mg PO DAILY [facility] Last Admin: 05/29/18 10:33 Dose: 1 mg Heparin Sodium (Porcine) (Heparin -) 1,000 unit IVPUSH PRN PRN PRN Reason: Heparin Heparin Sodium (Porcine) (Heparin -) 5,000 unit IVPUSH PRN PRN PRN Reason: Heparin Last Admin: 05/28/18 18:24 Dose: 5,000 unit Dextrose/Sodium Chloride (D5-Ns -) 1,000 mls @ 42 mls/hr IV ASDIR [facility] Last Admin: 05/27/18 18:56 Dose: 42 mls/hr Piperacillin Sod/Tazobactam (Sod 3.375 gm/ Dextrose) 50 mls @ 100 mls/hr IVPB Q8H-IV [facility]; Protocol Last Admin: 05/29/18 10:34 Dose: 100 mls/hr Levetiracetam (Keppra -) 500 mg PO BID [facility] Last Admin: 05/29/18 10:33 Dose: 500 mg Pantoprazole Sodium (Protonix -) 40 mg PO DAILY [facility] Last Admin: 05/29/18 10:33 Dose: 40 mg Thiamine HCl (Vitamin B1 -) 100 mg PO DAILY [facility] Last Admin: 05/29/18 10:34 Dose: 100 mg Valacyclovir HCl (Valtrex -) 500 mg PO BID [facility] Last Admin: 05/29/18 10:34 Dose: 500 mg A/P Altered Mental Status improving UTI Acute Kidney Injury +Troponins likely Demand Ischemia COPD Small Left Pleural Effusion likely reactive Atelectasis Atrial Fibrillation h/o CVA Follicular Lymphoma HTN Hyperlipidemia - IV antibiotics - IVF - monitor urine output, creatinine - O2 to keep SpO2 >90% - inhaled bronchodilators as needed - pleural effusion small and likely reactive, continue to monitor for now - rate control - DVT prophylaxis - agree with palliative care eval Problem List - Problems (1) UTI (urinary tract infection) Code(s): N39.0 - URINARY TRACT INFECTION, SITE NOT SPECIFIED Qualifiers: Urinary tract infection type: site unspecified Hematuria presence: without hematuria Qualified Code(s): N39.0 - Urinary tract infection, site not specified (2) JOSH (acute kidney injury) Code(s): N17.9 - ACUTE KIDNEY FAILURE, UNSPECIFIED (3) Lymphoma Code(s): C85.90 - NON-HODGKIN LYMPHOMA, UNSPECIFIED, UNSPECIFIED SITE Qualifiers: Lymphoma type: unspecified type Lymphoma site: unspecified region Qualified Code(s): C85.90 - Non-Hodgkin lymphoma, unspecified, unspecified site (4) Pleural effusion Code(s): J90 - PLEURAL EFFUSION, NOT ELSEWHERE CLASSIFIED (5) Atrial fibrillation Code(s): I48.91 - UNSPECIFIED ATRIAL FIBRILLATION Qualifiers: Atrial fibrillation type: persistent Qualified Code(s): I48.1 - Persistent atrial fibrillation (6) COPD (chronic obstructive pulmonary disease) Code(s): J44.9 - CHRONIC OBSTRUCTIVE PULMONARY DISEASE, UNSPECIFIED Qualifiers: COPD type: chronic bronchitis
--- NOTE | 2018-05-29 16:14 | PN ---
Progress Note, Physician Chief Complaint: Patient has appears comfortable without acute distress. History of Present Illness: 68 year-old man with a PMHx of HTN, hyperlipidemia, chronic atrial fibrillation , s/p PPM, s/p first AVR in 2008 at [facility] with infective endocarditis, s/p redo tissue AVR 2010 at [facility], CVA, COPD , follicular lymphoma last chemo in February 2018 admitted 05/26/2018 with generalized weakness and altered mental status. He was found to have a UTI, abnormal LFTs as well as JOSH, started on antibiotics and IVF with improvement. Seen by GI, Renal and pulmonary. Left pleural effusion with some compressive atelectasis. ECG 05/26/2018 atrial fibrillation and ventricular paced rhythm. Echo 01/12/2017. Moderate LV dilatation with normal systolic function. Normal RV. Moderate to severe LA dilatation. Moderate RA dilatation. AVR. Moderate MR. PASP = 40%. Pleural effusion. MUGA 04/21/2017: LVEF = 49%. LE Duplex 05/28/2018: Extensive RLE DVTs. CT head 05/28/2018: Chronic right temporoparietal cortical infarct. No acute hemorrhage or ischemia. Repeat Echo 05/28/2018: Grossly normal LV systolic function with paradoxical septal motion. Pace wire in RV. Normal LA and RA. Tissue AVR without stenosis. Mild to moderate AI. Mild MR. - Current Medication List Current Medications: Active Medications Albuterol Sulfate (Ventolin 0.083% Nebulizer Soln -) 1 amp NEB Q6H PRN PRN Reason: SHORT OF BREATH/WHEEZING Amlodipine Besylate (Norvasc -) 2.5 mg PO DAILY [facility] Last Admin: 05/29/18 10:33 Dose: 2.5 mg Atorvastatin Calcium (Lipitor -) 40 mg PO HS [facility] Last Admin: 05/28/18 21:25 Dose: 40 mg Enoxaparin Sodium (Lovenox -) 90 mg SQ BID [facility] Folic Acid (Folic Acid -) 1 mg PO DAILY [facility] Last Admin: 05/29/18 10:33 Dose: 1 mg Heparin Sodium (Porcine) (Heparin -) 1,000 unit IVPUSH PRN PRN PRN Reason: Heparin Heparin Sodium (Porcine) (Heparin -) 5,000 unit IVPUSH PRN PRN PRN Reason: Heparin Last Admin: 05/28/18 18:24 Dose: 5,000 unit Dextrose/Sodium Chloride (D5-Ns -) 1,000 mls @ 42 mls/hr IV ASDIR [facility] Last Admin: 05/27/18 18:56 Dose: 42 mls/hr Piperacillin Sod/Tazobactam (Sod 3.375 gm/ Dextrose) 50 mls @ 100 mls/hr IVPB Q8H-IV DIANE; Protocol Last Admin: 05/29/18 10:34 Dose: 100 mls/hr Levetiracetam (Keppra -) 500 mg PO BID [facility] Last Admin: 05/29/18 10:33 Dose: 500 mg Pantoprazole Sodium (Protonix -) 40 mg PO DAILY [facility] Last Admin: 05/29/18 10:33 Dose: 40 mg Thiamine HCl (Vitamin B1 -) 100 mg PO DAILY [facility] Last Admin: 05/29/18 10:34 Dose: 100 mg Valacyclovir HCl (Valtrex -) 500 mg PO BID [facility] Last Admin: 05/29/18 10:34 Dose: 500 mg - Objective Vital Signs: Vital Signs Temperature 98.1 F 05/29/18 14:41 Pulse Rate 82 05/29/18 14:41 Respiratory Rate 05/29/18 10:00 Blood Pressure 130/79 05/29/18 14:41 O2 Sat by Pulse Oximetry (%) 97 05/29/18 09:00 General: Well developed. Well nourished. No acute distress. Head: Normocephalic. Atraumatic, Eyes: PERRLA, EOMI. Sclerae anicteric. Conjunctivae clear. Neck: Supple. No JVD. No bruits. Heart: Normal S1, S2: Irregular rhythm and rate. III/ KELSI and DM. Lungs: Poor air entry with low BP. No crackles. No wheezing or rhonchi. Abdomen: Soft. Bowel sound positive. Non tender. No masses. Extremities: Bilateral venous stasis with trace edema Labs: CBC, BMP 05/28/18 07:30 05/29/18 10:46 INR, PTT INR 1.18 (0.83-1.09) H 05/28/18 07:30 Assessment/Plan 68 year-old man with a PMHx of HTN, hyperlipidemia, chronic atrial fibrillation , s/p PPM, s/p first AVR in 2008 at [facility] with infective endocarditis, s/p redo tissue AVR 2010 at [facility], CVA, COPD , follicular lymphoma last chemo in February 2018 admitted 05/26/2018 with generalized weakness and altered mental status. He was found to have a UTI, abnormal LFTs as well as JOSH, started on antibiotics and IVF with improvement. Seen by GI, Renal and pulmonary. Left pleural effusion with some compressive atelectasis. ECG 05/26/2018 atrial fibrillation and ventricular paced rhythm. Echo 01/12/2017. Moderate LV dilatation with normal systolic function. Normal RV. Moderate to severe LA dilatation. Moderate RA dilatation. AVR. Moderate MR. PASP = 40%. Pleural effusion. MUGA 04/21/2017: LVEF = 49%. LE Duplex 05/28/2018: Extensive RLE DVTs. CT head 05/28/2018: Chronic right temporoparietal cortical infarct. No acute hemorrhage or ischemia. Repeat Echo 05/28/2018: Grossly normal LV systolic function with paradoxical septal motion. Pace wire in RV. Normal LA and RA. Tissue AVR without stenosis. Mild to moderate AR. Mild MR. 1) Chronic systolic CHF with dilatation LV and mildly reduced LV systolic function in the past. But repeat echo shows grossly normal LV systolic function. No acute respiratory distress or significant fluid overload. May use diuretics as needed. May discontinue Norvasc. Use beta daniella if BP is elevatred. 2) Chronic atrial fibrillation with paced rhythm. Also evidence of extensive right LE DVTs. High risk of CVA with a CHADS2 score of 4. Anticoagulation is recommended. May use either LMW heparin or IV heparin followed by Warfarin or NOACs. 3) S/p Redo AVR with loud systolic ejection murmur. Repeat echo shows tissue AVR without stenosis, mild to moderate AR. Please call us for reconsult as needed.
--- NOTE | 2018-05-29 16:33 | PN ---
Progress Note (short form) - Note Progress Note: Problems 1. JOSH 2. UTI 3. follicular lymphoma 4. endocarditis s/p valve replacement 5. a-fib 6. cva 7. htn 8. hld 9. COPD Current Medications Albuterol Sulfate (Ventolin 0.083% Nebulizer Soln -) 1 amp NEB Q6H PRN PRN Reason: SHORT OF BREATH/WHEEZING Amlodipine Besylate (Norvasc -) 2.5 mg PO DAILY [facility] Last Admin: 05/29/18 10:33 Dose: 2.5 mg Atorvastatin Calcium (Lipitor -) 40 mg PO HS [facility] Last Admin: 05/28/18 21:25 Dose: 40 mg Enoxaparin Sodium (Lovenox -) 90 mg SQ BID [facility] Folic Acid (Folic Acid -) 1 mg PO DAILY [facility] Last Admin: 05/29/18 10:33 Dose: 1 mg Heparin Sodium (Porcine) (Heparin -) 1,000 unit IVPUSH PRN PRN PRN Reason: Heparin Heparin Sodium (Porcine) (Heparin -) 5,000 unit IVPUSH PRN PRN PRN Reason: Heparin Last Admin: 05/28/18 18:24 Dose: 5,000 unit Dextrose/Sodium Chloride (D5-Ns -) 1,000 mls @ 42 mls/hr IV ASDIR [facility] Last Admin: 05/27/18 18:56 Dose: 42 mls/hr Piperacillin Sod/Tazobactam (Sod 3.375 gm/ Dextrose) 50 mls @ 100 mls/hr IVPB Q8H-IV [facility]; Protocol Last Admin: 05/29/18 10:34 Dose: 100 mls/hr Levetiracetam (Keppra -) 500 mg PO BID [facility] Last Admin: 05/29/18 10:33 Dose: 500 mg Pantoprazole Sodium (Protonix -) 40 mg PO DAILY [facility] Last Admin: 05/29/18 10:33 Dose: 40 mg Thiamine HCl (Vitamin B1 -) 100 mg PO DAILY [facility] Last Admin: 05/29/18 10:34 Dose: 100 mg Valacyclovir HCl (Valtrex -) 500 mg PO BID [facility] Last Admin: 05/29/18 10:34 Dose: 500 mg Last Vital Signs Temp Pulse Resp BP Pulse Ox 98.1 F 82 19 130/79 97 05/29/18 14:41 05/29/18 14:41 05/29/18 10:00 05/29/18 14:41 05/29/18 09:00 Lungs clear Heart reg Abd soft nontender ext mild edema CBC, BMP 05/28/18 07:30 05/29/18 10:46 CBC, BMP 05/28/18 07:30 05/28/18 07:30 IMP- stable prerenal azotemia Plan- continue to ensure fluids
[2018-05-29] MEDS: DEXTROSE 5%-NORMAL SALINE 1,000 ML IV SCH ×2 (19:00→21:53)
[2018-05-29] MEDS: ENOXAPARIN NA (PORCINE) 100 MG/1 ML DISP.SYRIN SQ SCH (21:50)
[2018-05-29] MEDS: ATORVASTATIN CA 40 MG TABLET (FP) PO SCH (21:50)
[2018-05-29] MEDS ORDERED: ENOXAPARIN NA (PORCINE) 80 MG/0.8 ML DISP.SYRIN SQ SCH (22:00)
[2018-05-30] MEDS ORDERED: DEXTROSE 5%-WATER - 50 ML IVPB ONE ×3 (00:45→17:33)
[2018-05-30] MEDS ORDERED: PIPERACILLIN/TAZOBACTAM 3.375 GM VIAL IVPB ONE ×3 (00:45→17:33)
[2018-05-30] MEDS: PIPERACILLIN/TAZOB 3.375 GM 3.375 GM in DEXTROSE 5%-WATER - 50 ML IVPB SCH ×3 (01:11→17:48)
[2018-05-30 08:22] LABS: HEMATOCRIT 31.3 % (35.4-49); HEMOGLOBIN 11.2 GM/dL (11.7-16.9); MCH 35.6 pg (25.7-33.7); MCHC 35.6 g/dl (32.0-35.9); MEAN CELL VOLUME 99.9 fl (80-96); MEAN PLT VOLUME 9.3 fl (7.5-11.1); PLATELET COUNT 132 K/MM3 (134-434); RBC 3.14 M/mm3 (4.00-5.60); RDW 16.2 % (11.9-15.9); WHITE BLOOD COUNT 7.4 K/mm3 (4.0-10.0)
[2018-05-30 08:47] LABS: ALK PHOS 113 U/L (45-117); ANION GAP 10 MMOL/L (8-16); BILIRUBIN,TOTAL 0.6 mg/dL (0.2-1); BLOOD UREA NITROGEN 47 mg/dL (7-18); CHLORIDE 112 mmol/L (98-107); CO2 22 mmol/L (21-32); CREATININE 2.1 mg/dL (0.55-1.3); GLUCOSE,RANDOM 90 mg/dL (74-106); POTASSIUM 3.7 mmol/L (3.5-5.1); SGOT/AST 42 U/L (15-37); SGPT/ALT 14 U/L (13-61); SODIUM 144 mmol/L (136-145); TOT PROT 6.3 g/dl (6.4-8.2)
--- NOTE | 2018-05-30 10:38 | PN ---
Progress Note, Physician Chief Complaint: JOSH UTI Elevated troponin History of Present Illness: NAD On IV abx for UTI Seen by ID - Current Medication List Current Medications: Active Medications Albuterol Sulfate (Ventolin 0.083% Nebulizer Soln -) 1 amp NEB Q6H PRN PRN Reason: SHORT OF BREATH/WHEEZING Amlodipine Besylate (Norvasc -) 2.5 mg PO DAILY [facility] Last Admin: 05/29/18 10:33 Dose: 2.5 mg Atorvastatin Calcium (Lipitor -) 40 mg PO HS [facility] Last Admin: 05/29/18 21:50 Dose: 40 mg Enoxaparin Sodium (Lovenox -) 90 mg SQ BID [facility] Last Admin: 05/29/18 21:50 Dose: 90 mg Folic Acid (Folic Acid -) 1 mg PO DAILY [facility] Last Admin: 05/29/18 10:33 Dose: 1 mg Heparin Sodium (Porcine) (Heparin -) 1,000 unit IVPUSH PRN PRN PRN Reason: Heparin Heparin Sodium (Porcine) (Heparin -) 5,000 unit IVPUSH PRN PRN PRN Reason: Heparin Last Admin: 05/28/18 18:24 Dose: 5,000 unit Dextrose/Sodium Chloride (D5-Ns -) 1,000 mls @ 42 mls/hr IV ASDIR [facility] Last Admin: 05/29/18 21:53 Dose: 42 mls/hr Piperacillin Sod/Tazobactam (Sod 3.375 gm/ Dextrose) 50 mls @ 100 mls/hr IVPB Q8H-IV [facility]; Protocol Last Admin: 05/30/18 01:11 Dose: 100 mls/hr Levetiracetam (Keppra -) 500 mg PO BID [facility] Last Admin: 05/29/18 21:50 Dose: 500 mg Pantoprazole Sodium (Protonix -) 40 mg PO DAILY [facility] Last Admin: 05/29/18 10:33 Dose: 40 mg Thiamine HCl (Vitamin B1 -) 100 mg PO DAILY [facility] Last Admin: 05/29/18 10:34 Dose: 100 mg Valacyclovir HCl (Valtrex -) 500 mg PO BID [facility] Last Admin: 05/29/18 21:52 Dose: 500 mg - Objective Vital Signs: Vital Signs Temperature 97.3 F L 05/30/18 05:59 Pulse Rate 80 05/30/18 05:59 Respiratory Rate 20 05/30/18 05:59 Blood Pressure 111/61 05/30/18 05:59 O2 Sat by Pulse Oximetry (%) 97 05/29/18 21:00 Constitutional: Yes: Well Nourished, No Distress, Calm Cardiovascular: Yes: Regular Rate and Rhythm Respiratory: Yes: Regular Gastrointestinal: Yes: Normal Bowel Sounds, Soft Musculoskeletal: Yes: Muscle Weakness Edema: Yes Edema: LLE: 1+, RLE: 1+ Peripheral Pulses WNL: Yes Neurological: Yes: Alert, Pre-Existing Deficit Psychiatric: Yes: Alert Labs: CBC, BMP 05/30/18 07:30 05/30/18 07:30 INR, PTT INR 1.18 (0.83-1.09) H 05/28/18 07:30 Problem List - Problems (1) JOSH (acute kidney injury) Assessment/Plan: -worsening renal fxn -2/2 to UTI -Nephrology on board -monitor trend Code(s): N17.9 - ACUTE KIDNEY FAILURE, UNSPECIFIED (2) DVT (deep venous thrombosis) Assessment/Plan: -BLLE -Lovenox 90 mg BID -Hematology already on board Code(s): I82.409 - ACUTE EMBOLISM AND THOMBOS UNSP DEEP VN UNSP LOWER EXTREMITY (3) Pleural effusion Assessment/Plan: -CT scan shows Left pleural effusion and basilar atelectasis -pulm consult -Nasal O2 -Bronchodilators Code(s): J90 - PLEURAL EFFUSION, NOT ELSEWHERE CLASSIFIED (4) UTI (urinary tract infection) Assessment/Plan: -ID consult -afebrile -no leukocytosis, wbc 9.4 -UA show 3+ protein, 1+ blood, 2+ leuks, UC positive for lactose fermenting neg bacilli -UC: Microbiology 05/28/18 12:50 Stool Clostridioides difficile Antigen - Final 05/28/18 12:50 Stool Clostridioides difficile Toxin Assay - Final 05/26/18 14:40 Blood - Peripheral Venous Blood Culture - Preliminary NO GROWTH OBTAINED AFTER 48 HOURS, INCUBATION TO CONTINUE FOR 3 DAYS. 05/26/18 14:40 Blood - Peripheral Venous Blood Culture - Preliminary NO GROWTH OBTAINED AFTER 48 HOURS, INCUBATION TO CONTINUE FOR 3 DAYS. 05/26/18 15:12 Urine - Urine Clean Catch Urine Culture - Final Escherichia Coli [employer] 05/27/18 06:50 Nares - Mrsa Screen - Left MRSA Screen - Final NO MRSA ISOLATED 05/27/18 06:50 Nares - Mrsa Screen - Right MRSA Screen - Final NO MRSA ISOLATED Code(s): N39.0 - URINARY TRACT INFECTION, SITE NOT SPECIFIED Qualifiers: Urinary tract infection type: site unspecified Hematuria presence: without hematuria Qualified Code(s): N39.0 - Urinary tract infection, site not specified (5) Anemia Assessment/Plan: -stable -monitor trend Code(s): D64.9 - ANEMIA, UNSPECIFIED Qualifiers: Anemia type: other cause Other causes of anemia: other cause, not classified Qualified Code(s): D64.89 - Other specified anemias (6) Lymphoma Assessment/Plan: -heme/onc on board -CT scan shows very large mid epigastric mass extending into the retroperitineumconsistent with a large lymph node mass, right pericardiophrenic angle lymphadenopathy, multiple left lower abdominal and upper pelvic masses consistent with additional neoplastic process Code(s): C85.90 - NON-HODGKIN LYMPHOMA, UNSPECIFIED, UNSPECIFIED SITE Qualifiers: Lymphoma type: unspecified type Lymphoma site: unspecified region Qualified Code(s): C85.90 - Non-Hodgkin lymphoma, unspecified, unspecified site (7) Retroperitoneal mass Assessment/Plan: -GI on board -CT scan show very large mid epigastric mass extending into the retroperitoneum consistent with a large lymph node mass, multiple left lower abdominal and upper pelvic masses consistent with additional neoplastic process -heme/onc on board -Abdominal US shows ascites in upper abdomen, liver is slightly enlarged, it is hyperechoic in texture consistent with with diffuse fatty liver infiltration, , no discrete mass is identified within the liver, pancreas cannot be visualized due to large midline mass Code(s): R19.00 - INTRA-ABD AND PELVIC SWELLING, MASS AND LUMP, UNSP SITE (8) Troponin level elevated Assessment/Plan: -trending down -Seen by Cardiology Code(s): R74.8 - ABNORMAL LEVELS OF OTHER SERUM ENZYMES Assessment/Plan See problem list Physical therapy poor prognosis palliative consult
[2018-05-30] MEDS ORDERED: PT OWN MED DRAWER 7, Y5N ONE ×2 (11:09→22:23)
[2018-05-30] MEDS: FOLIC ACID 1 MG TABLET (FP) PO SCH (11:26)
[2018-05-30] MEDS: PANTOPRAZOLE 40 MG TABLET (FP) PO SCH (11:26)
[2018-05-30] MEDS: ENOXAPARIN NA (PORCINE) 100 MG/1 ML DISP.SYRIN SQ SCH ×2 (11:27→22:33)
[2018-05-30] MEDS: levETIRAcetam 500 MG TABLET (FP) PO SCH ×2 (11:28→22:34)
[2018-05-30] MEDS: valACYclovir HCL 500 MG TABLET (FP) PO SCH ×2 (11:29→22:34)
[2018-05-30] MEDS: THIAMINE HCL 100 MG TABLET (FP) PO SCH (11:29)
[2018-05-30] MEDS: amLODIPine BESYLATE 5 MG TABLET (FP) PO SCH (11:30)
--- NOTE | 2018-05-30 11:34 | PN ---
Progress Note (short form) - Note Progress Note: PULMONARY Confused but states he feels well today. Denies shortness of breath or chest pain. Vital Signs Period Temp Pulse Resp BP Sys/Lugo Pulse Ox Last 24 Hr 97.3 F-99.1 F 80-82 20-22 111-130/61-79 97 Gen: NAD at rest Heart: RRR Lung: decreased breath sounds at the bases Abd: soft, nontender Ext: no edema CBC, BMP 05/30/18 07:30 05/30/18 07:30 Active Medications Albuterol Sulfate (Ventolin 0.083% Nebulizer Soln -) 1 amp NEB Q6H PRN PRN Reason: SHORT OF BREATH/WHEEZING Amlodipine Besylate (Norvasc -) 2.5 mg PO DAILY [facility] Last Admin: 05/30/18 11:30 Dose: 2.5 mg Atorvastatin Calcium (Lipitor -) 40 mg PO HS [facility] Last Admin: 05/29/18 21:50 Dose: 40 mg Enoxaparin Sodium (Lovenox -) 90 mg SQ BID [facility] Last Admin: 05/30/18 11:27 Dose: 90 mg Folic Acid (Folic Acid -) 1 mg PO DAILY [facility] Last Admin: 05/30/18 11:26 Dose: 1 mg Heparin Sodium (Porcine) (Heparin -) 1,000 unit IVPUSH PRN PRN PRN Reason: Heparin Heparin Sodium (Porcine) (Heparin -) 5,000 unit IVPUSH PRN PRN PRN Reason: Heparin Last Admin: 05/28/18 18:24 Dose: 5,000 unit Dextrose/Sodium Chloride (D5-Ns -) 1,000 mls @ 42 mls/hr IV ASDIR [facility] Last Admin: 05/29/18 21:53 Dose: 42 mls/hr Piperacillin Sod/Tazobactam (Sod 3.375 gm/ Dextrose) 50 mls @ 100 mls/hr IVPB Q8H-IV [facility]; Protocol Last Admin: 05/30/18 11:30 Dose: 100 mls/hr Levetiracetam (Keppra -) 500 mg PO BID [facility] Last Admin: 05/30/18 11:28 Dose: 500 mg Pantoprazole Sodium (Protonix -) 40 mg PO DAILY [facility] Last Admin: 05/30/18 11:26 Dose: 40 mg Thiamine HCl (Vitamin B1 -) 100 mg PO DAILY [facility] Last Admin: 05/30/18 11:29 Dose: 100 mg Valacyclovir HCl (Valtrex -) 500 mg PO BID [facility] Last Admin: 05/30/18 11:29 Dose: 500 mg A/P Altered Mental Status improving UTI Acute Kidney Injury +Troponins likely Demand Ischemia COPD Small Left Pleural Effusion likely reactive Atelectasis Atrial Fibrillation h/o CVA Follicular Lymphoma HTN Hyperlipidemia - IV antibiotics - IVF - monitor urine output, creatinine - O2 to keep SpO2 >90% - inhaled bronchodilators as needed - pleural effusion small and likely reactive, continue to monitor for now - rate control - DVT prophylaxis - agree with palliative care eval Problem List - Problems (1) UTI (urinary tract infection) Code(s): N39.0 - URINARY TRACT INFECTION, SITE NOT SPECIFIED Qualifiers: Urinary tract infection type: site unspecified Hematuria presence: without hematuria Qualified Code(s): N39.0 - Urinary tract infection, site not specified (2) JOSH (acute kidney injury) Code(s): N17.9 - ACUTE KIDNEY FAILURE, UNSPECIFIED (3) Lymphoma Code(s): C85.90 - NON-HODGKIN LYMPHOMA, UNSPECIFIED, UNSPECIFIED SITE Qualifiers: Lymphoma type: unspecified type Lymphoma site: unspecified region Qualified Code(s): C85.90 - Non-Hodgkin lymphoma, unspecified, unspecified site (4) Pleural effusion Code(s): J90 - PLEURAL EFFUSION, NOT ELSEWHERE CLASSIFIED (5) Atrial fibrillation Code(s): I48.91 - UNSPECIFIED ATRIAL FIBRILLATION Qualifiers: Atrial fibrillation type: persistent Qualified Code(s): I48.1 - Persistent atrial fibrillation (6) COPD (chronic obstructive pulmonary disease) Code(s): J44.9 - CHRONIC OBSTRUCTIVE PULMONARY DISEASE, UNSPECIFIED Qualifiers: COPD type: chronic bronchitis
--- NOTE | 2018-05-30 18:38 | PN ---
Progress Note (short form) - Note Progress Note: Problems 1. JOSH 2. UTI 3. follicular lymphoma 4. endocarditis s/p valve replacement 5. a-fib 6. cva 7. htn 8. hld 9. COPD Current Medications Albuterol Sulfate (Ventolin 0.083% Nebulizer Soln -) 1 amp NEB Q6H PRN PRN Reason: SHORT OF BREATH/WHEEZING Amlodipine Besylate (Norvasc -) 2.5 mg PO DAILY [facility] Last Admin: 05/30/18 11:30 Dose: 2.5 mg Atorvastatin Calcium (Lipitor -) 40 mg PO HS [facility] Last Admin: 05/29/18 21:50 Dose: 40 mg Enoxaparin Sodium (Lovenox -) 90 mg SQ BID [facility] Last Admin: 05/30/18 11:27 Dose: 90 mg Folic Acid (Folic Acid -) 1 mg PO DAILY [facility] Last Admin: 05/30/18 11:26 Dose: 1 mg Heparin Sodium (Porcine) (Heparin -) 1,000 unit IVPUSH PRN PRN PRN Reason: Heparin Heparin Sodium (Porcine) (Heparin -) 5,000 unit IVPUSH PRN PRN PRN Reason: Heparin Last Admin: 05/28/18 18:24 Dose: 5,000 unit Dextrose/Sodium Chloride (D5-Ns -) 1,000 mls @ 42 mls/hr IV ASDIR [facility] Last Admin: 05/29/18 21:53 Dose: 42 mls/hr Piperacillin Sod/Tazobactam (Sod 3.375 gm/ Dextrose) 50 mls @ 100 mls/hr IVPB Q8H-IV [facility]; Protocol Last Admin: 05/30/18 17:48 Dose: 100 mls/hr Levetiracetam (Keppra -) 500 mg PO BID [facility] Last Admin: 05/30/18 11:28 Dose: 500 mg Pantoprazole Sodium (Protonix -) 40 mg PO DAILY [facility] Last Admin: 05/30/18 11:26 Dose: 40 mg Thiamine HCl (Vitamin B1 -) 100 mg PO DAILY [facility] Last Admin: 05/30/18 11:29 Dose: 100 mg Valacyclovir HCl (Valtrex -) 500 mg PO BID [facility] Last Admin: 05/30/18 11:29 Dose: 500 mg Last Vital Signs Temp Pulse Resp BP Pulse Ox 97.3 F L 80 20 111/61 97 05/30/18 05:59 05/30/18 05:59 05/30/18 05:59 05/30/18 05:59 05/29/18 21:00 Lungs clear Heart reg Abd soft nontender ext mild edema CBC, BMP 05/30/18 07:30 05/30/18 07:30 CBC, BMP 05/28/18 07:30 05/29/18 10:46 IMP- stable prerenal azotemia Plan- continue to ensure fluids
[2018-05-30] MEDS: ATORVASTATIN CA 40 MG TABLET (FP) PO SCH (22:34)
[2018-05-30] MEDS: DEXTROSE 5%-NORMAL SALINE 1,000 ML IV SCH (22:34)
[2018-05-31] MEDS ORDERED: DEXTROSE 5%-WATER - 50 ML IVPB ONE ×3 (01:16→16:56)
[2018-05-31] MEDS ORDERED: PIPERACILLIN/TAZOBACTAM 3.375 GM VIAL IVPB ONE ×3 (01:16→16:55)
[2018-05-31] MEDS: DEXTROSE 5%-NORMAL SALINE 1,000 ML IV SCH (01:39)
[2018-05-31] MEDS: PIPERACILLIN/TAZOB 3.375 GM 3.375 GM in DEXTROSE 5%-WATER - 50 ML IVPB SCH ×3 (01:40→17:37)
[2018-05-31 07:43] LABS: HEMATOCRIT 31.3 % (35.4-49); MCH 34.4 pg (25.7-33.7); MEAN CELL VOLUME 98.1 fl (80-96); MEAN PLT VOLUME 9.7 fl (7.5-11.1); PLATELET COUNT 157 K/MM3 (134-434); RBC 3.19 M/mm3 (4.00-5.60); RDW 16.3 % (11.9-15.9); WHITE BLOOD COUNT 8.4 K/mm3 (4.0-10.0)
[2018-05-31 08:19] LABS: ALBUMIN 2.9 g/dl (3.4-5.0); ALK PHOS 129 U/L (45-117); ANION GAP 11 MMOL/L (8-16); BILIRUBIN,TOTAL 0.6 mg/dL (0.2-1); BLOOD UREA NITROGEN 49 mg/dL (7-18); CALCIUM 11.2 mg/dL (8.5-10.1); CHLORIDE 112 mmol/L (98-107); CO2 20 mmol/L (21-32); CREATININE 2.4 mg/dL (0.55-1.3); GLUCOSE,RANDOM 98 mg/dL (74-106); POTASSIUM 3.4 mmol/L (3.5-5.1); SGOT/AST 48 U/L (15-37); SGPT/ALT 14 U/L (13-61); SODIUM 143 mmol/L (136-145); TOT PROT 6.3 g/dl (6.4-8.2)
[2018-05-31] MEDS ORDERED: PT OWN MED DRAWER 7, Y5N ONE ×2 (09:26→21:44)
[2018-05-31] MEDS: ENOXAPARIN NA (PORCINE) 100 MG/1 ML DISP.SYRIN SQ SCH ×2 (09:41→21:53)
[2018-05-31] MEDS: PANTOPRAZOLE 40 MG TABLET (FP) PO SCH (09:42)
[2018-05-31] MEDS: amLODIPine BESYLATE 5 MG TABLET (FP) PO SCH (09:42)
[2018-05-31] MEDS: FOLIC ACID 1 MG TABLET (FP) PO SCH (09:42)
[2018-05-31] MEDS: valACYclovir HCL 500 MG TABLET (FP) PO SCH ×2 (09:42→21:53)
[2018-05-31] MEDS: THIAMINE HCL 100 MG TABLET (FP) PO SCH (09:43)
[2018-05-31] MEDS: levETIRAcetam 500 MG TABLET (FP) PO SCH ×2 (09:43→21:54)
--- NOTE | 2018-05-31 10:08 | PN ---
Progress Note (short form) - Note Progress Note: Awake, alert, responsive, but confused. Denies shortness of breath or chest pain. No acute events overnight. Intake & Output 05/28/18 05/29/18 05/30/18 05/31/18 23:59 23:59 23:59 23:59 Intake Total 712 2240 1380 533 Output Total 300 750 700 Balance 412 1490 680 533 Weight 191 lb 3.2 oz 184 lb 9 oz 192 lb 1 oz 196 lb 6 oz Last Vital Signs Temp Pulse Resp BP Pulse Ox 97.5 F L 81 20 142/77 97 05/31/18 05:59 05/31/18 05:59 05/31/18 05:59 05/31/18 05:59 05/30/18 21:00 Active Medications Albuterol Sulfate (Ventolin 0.083% Nebulizer Soln -) 1 amp NEB Q6H PRN PRN Reason: SHORT OF BREATH/WHEEZING Amlodipine Besylate (Norvasc -) 2.5 mg PO DAILY [facility] Last Admin: 05/31/18 09:42 Dose: 2.5 mg Atorvastatin Calcium (Lipitor -) 40 mg PO HS [facility] Last Admin: 05/30/18 22:34 Dose: 40 mg Enoxaparin Sodium (Lovenox -) 90 mg SQ BID [facility] Last Admin: 05/31/18 09:41 Dose: 90 mg Folic Acid (Folic Acid -) 1 mg PO DAILY [facility] Last Admin: 05/31/18 09:42 Dose: 1 mg Heparin Sodium (Porcine) (Heparin -) 1,000 unit IVPUSH PRN PRN PRN Reason: Heparin Heparin Sodium (Porcine) (Heparin -) 5,000 unit IVPUSH PRN PRN PRN Reason: Heparin Last Admin: 05/28/18 18:24 Dose: 5,000 unit Dextrose/Sodium Chloride (D5-Ns -) 1,000 mls @ 42 mls/hr IV ASDIR [facility] Last Admin: 05/31/18 01:39 Dose: 42 mls/hr Piperacillin Sod/Tazobactam (Sod 3.375 gm/ Dextrose) 50 mls @ 100 mls/hr IVPB Q8H-IV [facility]; Protocol Last Admin: 05/31/18 09:44 Dose: 100 mls/hr Levetiracetam (Keppra -) 500 mg PO BID [facility] Last Admin: 05/31/18 09:43 Dose: 500 mg Pantoprazole Sodium (Protonix -) 40 mg PO DAILY [facility] Last Admin: 05/31/18 09:42 Dose: 40 mg Thiamine HCl (Vitamin B1 -) 100 mg PO DAILY [facility] Last Admin: 05/31/18 09:43 Dose: 100 mg Valacyclovir HCl (Valtrex -) 500 mg PO BID [facility] Last Admin: 05/31/18 09:42 Dose: 500 mg Gen: NAD at rest, Confused Heart: RRR Lung: decreased breath sounds at the bases Abd: soft, nontender Ext: no edema Laboratory Results - last 24 hr 05/31/18 05/31/18 07:00 07:00 WBC 8.4 RBC 3.19 L Hgb 11.0 L Hct 31.3 L MCV 98.1 H MCH 34.4 H MCHC 35.0 RDW 16.3 H Plt Count 157 MPV 9.7 Sodium 143 Potassium 3.4 L Chloride 112 H Carbon Dioxide 20 L Anion Gap 11 BUN 49 H Creatinine 2.4 H Creat Clearance w eGFR 27.14 Random Glucose 98 Calcium 11.2 H Total Bilirubin 0.6 AST 48 H ALT 14 Alkaline Phosphatase 129 H Total Protein 6.3 L Albumin 2.9 L Problem List - Problems (1) UTI (urinary tract infection) Code(s): N39.0 - URINARY TRACT INFECTION, SITE NOT SPECIFIED Qualifiers: Urinary tract infection type: site unspecified Hematuria presence: without hematuria Qualified Code(s): N39.0 - Urinary tract infection, site not specified (2) JOSH (acute kidney injury) Code(s): N17.9 - ACUTE KIDNEY FAILURE, UNSPECIFIED (3) Lymphoma Code(s): C85.90 - NON-HODGKIN LYMPHOMA, UNSPECIFIED, UNSPECIFIED SITE Qualifiers: Lymphoma type: unspecified type Lymphoma site: unspecified region Qualified Code(s): C85.90 - Non-Hodgkin lymphoma, unspecified, unspecified site (4) Pleural effusion Code(s): J90 - PLEURAL EFFUSION, NOT ELSEWHERE CLASSIFIED (5) Atrial fibrillation Code(s): I48.91 - UNSPECIFIED ATRIAL FIBRILLATION Qualifiers: Atrial fibrillation type: persistent Qualified Code(s): I48.1 - Persistent atrial fibrillation (6) COPD (chronic obstructive pulmonary disease) Code(s): J44.9 - CHRONIC OBSTRUCTIVE PULMONARY DISEASE, UNSPECIFIED Qualifiers: COPD type: chronic bronchitis A/P Altered Mental Status improving UTI Acute Kidney Injury +Troponins likely Demand Ischemia COPD Small Left Pleural Effusion likely reactive Atelectasis Atrial Fibrillation h/o CVA Follicular Lymphoma HTN Hyperlipidemia - Antibiotics per ID - IVF - monitor urine output, creatinine - O2 to keep SpO2 >90% - inhaled bronchodilators as needed - DVT prophylaxis - Palliative care evaluation to help decide further GOC Dr Galvez
--- NOTE | 2018-05-31 12:09 | PN ---
Progress Note, Physician Chief Complaint: UTI JOSH Elevated troponin History of Present Illness: Previous notes and events reviewed awake and alert NAD RLE US positive for DVT poor appetite noted, intaking more liquids than solids - Current Medication List Current Medications: Active Medications Albuterol Sulfate (Ventolin 0.083% Nebulizer Soln -) 1 amp NEB Q6H PRN PRN Reason: SHORT OF BREATH/WHEEZING Amlodipine Besylate (Norvasc -) 2.5 mg PO DAILY [facility] Last Admin: 05/31/18 09:42 Dose: 2.5 mg Atorvastatin Calcium (Lipitor -) 40 mg PO HS [facility] Last Admin: 05/30/18 22:34 Dose: 40 mg Enoxaparin Sodium (Lovenox -) 90 mg SQ BID [facility] Last Admin: 05/31/18 09:41 Dose: 90 mg Folic Acid (Folic Acid -) 1 mg PO DAILY [facility] Last Admin: 05/31/18 09:42 Dose: 1 mg Heparin Sodium (Porcine) (Heparin -) 1,000 unit IVPUSH PRN PRN PRN Reason: Heparin Heparin Sodium (Porcine) (Heparin -) 5,000 unit IVPUSH PRN PRN PRN Reason: Heparin Last Admin: 05/28/18 18:24 Dose: 5,000 unit Dextrose/Sodium Chloride (D5-Ns -) 1,000 mls @ 42 mls/hr IV ASDIR [facility] Last Admin: 05/31/18 01:39 Dose: 42 mls/hr Piperacillin Sod/Tazobactam (Sod 3.375 gm/ Dextrose) 50 mls @ 100 mls/hr IVPB Q8H-IV DIANE; Protocol Last Admin: 05/31/18 09:44 Dose: 100 mls/hr Levetiracetam (Keppra -) 500 mg PO BID [facility] Last Admin: 05/31/18 09:43 Dose: 500 mg Pantoprazole Sodium (Protonix -) 40 mg PO DAILY [facility] Last Admin: 05/31/18 09:42 Dose: 40 mg Thiamine HCl (Vitamin B1 -) 100 mg PO DAILY [facility] Last Admin: 05/31/18 09:43 Dose: 100 mg Valacyclovir HCl (Valtrex -) 500 mg PO BID [facility] Last Admin: 05/31/18 09:42 Dose: 500 mg - Objective Vital Signs: Vital Signs Temperature 97.5 F L 05/31/18 05:59 Pulse Rate 81 03/18/19 05:59 Respiratory Rate 20 05/31/18 05:59 Blood Pressure 142/77 05/31/18 05:59 O2 Sat by Pulse Oximetry (%) 97 05/30/18 21:00 Constitutional: Yes: No Distress, Calm Eyes: Yes: Conjunctiva Clear HENT: Yes: Atraumatic Cardiovascular: Yes: Regular Rate and Rhythm Respiratory: Yes: Regular, CTA Bilaterally Gastrointestinal: Yes: Normal Bowel Sounds, Soft, Ascites Genitourinary: Yes: Incontinence Musculoskeletal: Yes: Muscle Weakness Extremities: Yes: WNL Edema: Yes (RLE) Neurological: Yes: Alert, Pre-Existing Deficit Psychiatric: Yes: Alert Labs: CBC, BMP 05/31/18 07:00 05/31/18 07:00 INR, PTT INR 1.18 (0.83-1.09) H 05/28/18 07:30 Microbiology 05/26/18 14:40 Blood - Peripheral Venous Blood Culture - Preliminary NO GROWTH OBTAINED AFTER 96 HOURS, INCUBATION TO CONTINUE FOR 1 DAYS. 05/26/18 14:40 Blood - Peripheral Venous Blood Culture - Preliminary NO GROWTH OBTAINED AFTER 96 HOURS, INCUBATION TO CONTINUE FOR 1 DAYS. 05/28/18 12:50 Stool Clostridioides difficile Antigen - Final 05/28/18 12:50 Stool Clostridioides difficile Toxin Assay - Final 05/26/18 15:12 Urine - Urine Clean Catch Urine Culture - Final Escherichia Coli Esbl [place] [place] [employer] 05/27/18 06:50 Nares - Mrsa Screen - Left MRSA Screen - Final NO MRSA ISOLATED 05/27/18 06:50 Nares - Mrsa Screen - Right MRSA Screen - Final NO MRSA ISOLATED Problem List - Problems (1) Lymphoma Assessment/Plan: -heme/onc on board -CT scan shows very large mid epigastric mass extending into the retroperitineumconsistent with a large lymph node mass, right pericardiophrenic angle lymphadenopathy, multiple left lower abdominal and upper pelvic masses consistent with additional neoplastic process -palliative care consult Code(s): C85.90 - NON-HODGKIN LYMPHOMA, UNSPECIFIED, UNSPECIFIED SITE Qualifiers: Lymphoma type: unspecified type Lymphoma site: unspecified region Qualified Code(s): C85.90 - Non-Hodgkin lymphoma, unspecified, unspecified site (2) UTI (urinary tract infection) Assessment/Plan: -ID on board -afebrile -no leukocytosis, wbc 8.4 -UA show 3+ protein, 1+ blood, 2+ leuks, UC positive for lactose fermenting neg bacilli -continue with IV zosyn Code(s): N39.0 - URINARY TRACT INFECTION, SITE NOT SPECIFIED Qualifiers: Urinary tract infection type: site unspecified Hematuria presence: without hematuria Qualified Code(s): N39.0 - Urinary tract infection, site not specified (3) HTN (hypertension) Assessment/Plan: -low Na diet -amlodipine Code(s): I10 - ESSENTIAL (PRIMARY) HYPERTENSION Qualifiers: Hypertension type: essential hypertension Qualified Code(s): I10 - Essential (primary) hypertension (4) Troponin level elevated Assessment/Plan: -troponin 0.11, hx of elev trop -will monitor trop for downtrend -cardiology on board Code(s): R74.8 - ABNORMAL LEVELS OF OTHER SERUM ENZYMES (5) Retroperitoneal mass Assessment/Plan: -GI on board -elev AST 48 and Alk phos 129 -CT scan show very large mid epigastric mass extending into the retroperitoneum consistent with a large lymph node mass, multiple left lower abdominal and upper pelvic masses consistent with additional neoplastic process -heme/onc on board -Abdominal US shows ascites in upper abdomen, liver is slightly enlarged, it is hyperechoic in texture consistent with with diffuse fatty liver infiltration, , no discrete mass is identified within the liver, pancreas cannot be visualized due to large midline mass Code(s): R19.00 - INTRA-ABD AND PELVIC SWELLING, MASS AND LUMP, UNSP SITE (6) JOSH (acute kidney injury) Assessment/Plan: -renal on board -BUN/Cr 49/2.4 -monitor renal function daily Code(s): N17.9 - ACUTE KIDNEY FAILURE, UNSPECIFIED (7) Pleural effusion Assessment/Plan: -CT scan shows Left pleural effusion and basilar atelectasis -pulm consult -O2 via NC prn for SOB -albuterol prn for SOB Code(s): J90 - PLEURAL EFFUSION, NOT ELSEWHERE CLASSIFIED (8) DVT (deep venous thrombosis) Assessment/Plan: -Vascular US RLE shows extensive deep venous thrombosis within the common, deep , and superficial femoral veins, as well as the popliteal and posterior tibial veins, thrombus is also noted in greater saphenous vein. -Lovenox 90mg BID -Echocardiogram -cardiology on board -hematology on board -echo reviewed Code(s): I82.409 - ACUTE EMBOLISM AND THOMBOS UNSP DEEP VN UNSP LOWER EXTREMITY Assessment/Plan see problem list dvt ppx palliative care PT
[2018-05-31] MEDS ORDERED: POTASSIUM CHLORIDE ORAL LIQUID 20 MEQ/15 ML PO ONE (12:30)
--- NOTE | 2018-05-31 15:05 | PN ---
Progress Note, Physician History of Present Illness: AWAKE, LETHARGIC OFFERS NO COMPLAINTS AFEBRILE URINE C/S ESBL - Current Medication List Current Medications: Active Medications Albuterol Sulfate (Ventolin 0.083% Nebulizer Soln -) 1 amp NEB Q6H PRN PRN Reason: SHORT OF BREATH/WHEEZING Amlodipine Besylate (Norvasc -) 2.5 mg PO DAILY [facility] Last Admin: 05/31/18 09:42 Dose: 2.5 mg Atorvastatin Calcium (Lipitor -) 40 mg PO HS [facility] Last Admin: 05/30/18 22:34 Dose: 40 mg Enoxaparin Sodium (Lovenox -) 90 mg SQ BID [facility] Last Admin: 05/31/18 09:41 Dose: 90 mg Folic Acid (Folic Acid -) 1 mg PO DAILY [facility] Last Admin: 05/31/18 09:42 Dose: 1 mg Heparin Sodium (Porcine) (Heparin -) 1,000 unit IVPUSH PRN PRN PRN Reason: Heparin Heparin Sodium (Porcine) (Heparin -) 5,000 unit IVPUSH PRN PRN PRN Reason: Heparin Last Admin: 05/28/18 18:24 Dose: 5,000 unit Dextrose/Sodium Chloride (D5-Ns -) 1,000 mls @ 42 mls/hr IV ASDIR [facility] Last Admin: 05/31/18 01:39 Dose: 42 mls/hr Piperacillin Sod/Tazobactam (Sod 3.375 gm/ Dextrose) 50 mls @ 100 mls/hr IVPB Q8H-IV DIANE; Protocol Last Admin: 05/31/18 09:44 Dose: 100 mls/hr Levetiracetam (Keppra -) 500 mg PO BID [facility] Last Admin: 05/31/18 09:43 Dose: 500 mg Pantoprazole Sodium (Protonix -) 40 mg PO DAILY [facility] Last Admin: 05/31/18 09:42 Dose: 40 mg Thiamine HCl (Vitamin B1 -) 100 mg PO DAILY [facility] Last Admin: 05/31/18 09:43 Dose: 100 mg Valacyclovir HCl (Valtrex -) 500 mg PO BID [facility] Last Admin: 05/31/18 09:42 Dose: 500 mg - Objective Vital Signs: Vital Signs Temperature 97.5 F L 05/31/18 05:59 Pulse Rate 81 05/31/18 05:59 Respiratory Rate 20 05/31/18 05:59 Blood Pressure 142/77 05/31/18 05:59 O2 Sat by Pulse Oximetry (%) 97 05/30/18 21:00 Constitutional: Yes: No Distress Eyes: Yes: Conjunctiva Clear Cardiovascular: Yes: Regular Rate and Rhythm, S1, S2 Respiratory: Yes: Diminished Gastrointestinal: Yes: Normal Bowel Sounds, Soft, Other (DISTENDED, TYMANITIC). No: Tenderness Edema: Yes Labs: CBC, BMP 05/31/18 07:00 05/31/18 07:00 INR, PTT INR 1.18 (0.83-1.09) H 05/28/18 07:30 Assessment/Plan LYMPHOMA DVT ESBL UTI AZOTEMIA CONTINUE ZOSYN CONTACT PRECAUTIONS
[2018-05-31] MEDS: SODIUM CHLORIDE 1,000 ML IV SCH (18:59)
--- NOTE | 2018-05-31 19:52 | PN ---
Progress Note (short form) - Note Progress Note: Patient seen and examined Denies any complaints confused Last Vital Signs Temp Pulse Resp BP Pulse Ox 97.6 F 82 20 150/98 90 L 05/31/18 19:00 05/31/18 19:00 05/31/18 21:00 05/31/18 19:00 05/31/18 21:00 Cor: RSR, No murmurs, No gallops Lungs: Clear to P&A Abd: Soft, Normal bowel sounds, No organomegaly Ext:No significant edema Abnormal Lab Results 05/31/18 05/31/18 07:00 07:00 RBC 3.19 L Hgb 11.0 L Hct 31.3 L MCV 98.1 H MCH 34.4 H RDW 16.3 H Potassium 3.4 L Chloride 112 H Carbon Dioxide 20 L BUN 49 H Creatinine 2.4 H Calcium 11.2 H AST 48 H Alkaline Phosphatase 129 H Total Protein 6.3 L Albumin 2.9 L Active Medications Albuterol Sulfate (Ventolin 0.083% Nebulizer Soln -) 1 amp NEB Q6H PRN PRN Reason: SHORT OF BREATH/WHEEZING Amlodipine Besylate (Norvasc -) 2.5 mg PO DAILY [facility] Last Admin: 05/31/18 09:42 Dose: 2.5 mg Atorvastatin Calcium (Lipitor -) 40 mg PO HS [facility] Last Admin: 05/31/18 21:53 Dose: 40 mg Enoxaparin Sodium (Lovenox -) 90 mg SQ BID [facility] Last Admin: 05/31/18 21:53 Dose: 90 mg Folic Acid (Folic Acid -) 1 mg PO DAILY [facility] Last Admin: 05/31/18 09:42 Dose: 1 mg Heparin Sodium (Porcine) (Heparin -) 1,000 unit IVPUSH PRN PRN PRN Reason: Heparin Heparin Sodium (Porcine) (Heparin -) 5,000 unit IVPUSH PRN PRN PRN Reason: Heparin Last Admin: 05/28/18 18:24 Dose: 5,000 unit Piperacillin Sod/Tazobactam (Sod 3.375 gm/ Dextrose) 50 mls @ 100 mls/hr IVPB Q8H-IV [facility]; Protocol Last Admin: 05/31/18 17:37 Dose: 100 mls/hr Sodium Chloride (Normal Saline -) 1,000 mls @ 75 mls/hr IV ASDIR [facility] Last Admin: 05/31/18 18:59 Dose: 75 mls/hr Levetiracetam (Keppra -) 500 mg PO BID [facility] Last Admin: 05/31/18 21:54 Dose: 500 mg Pantoprazole Sodium (Protonix -) 40 mg PO DAILY [facility] Last Admin: 05/31/18 09:42 Dose: 40 mg Thiamine HCl (Vitamin B1 -) 100 mg PO DAILY [facility] Last Admin: 05/31/18 09:43 Dose: 100 mg Valacyclovir HCl (Valtrex -) 500 mg PO BID [facility] Last Admin: 05/31/18 21:53 Dose: 500 mg a/p 68 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
[2018-05-31] MEDS: ATORVASTATIN CA 40 MG TABLET (FP) PO SCH (21:53)
--- NOTE | 2018-05-31 22:13 | PN ---
Progress Note (short form) - Note Progress Note: Problems 1. JOSH 2. UTI 3. follicular lymphoma 4. endocarditis s/p valve replacement 5. a-fib 6. cva 7. htn 8. hld 9. COPD Current Medications Albuterol Sulfate (Ventolin 0.083% Nebulizer Soln -) 1 amp NEB Q6H PRN PRN Reason: SHORT OF BREATH/WHEEZING Amlodipine Besylate (Norvasc -) 2.5 mg PO DAILY [facility] Last Admin: 05/31/18 09:42 Dose: 2.5 mg Atorvastatin Calcium (Lipitor -) 40 mg PO HS [facility] Last Admin: 05/31/18 21:53 Dose: 40 mg Enoxaparin Sodium (Lovenox -) 90 mg SQ BID [facility] Last Admin: 05/31/18 21:53 Dose: 90 mg Folic Acid (Folic Acid -) 1 mg PO DAILY [facility] Last Admin: 05/31/18 09:42 Dose: 1 mg Heparin Sodium (Porcine) (Heparin -) 1,000 unit IVPUSH PRN PRN PRN Reason: Heparin Heparin Sodium (Porcine) (Heparin -) 5,000 unit IVPUSH PRN PRN PRN Reason: Heparin Last Admin: 05/28/18 18:24 Dose: 5,000 unit Piperacillin Sod/Tazobactam (Sod 3.375 gm/ Dextrose) 50 mls @ 100 mls/hr IVPB Q8H-IV [facility]; Protocol Last Admin: 05/31/18 17:37 Dose: 100 mls/hr Sodium Chloride (Normal Saline -) 1,000 mls @ 75 mls/hr IV ASDIR [facility] Last Admin: 05/31/18 18:59 Dose: 75 mls/hr Levetiracetam (Keppra -) 500 mg PO BID [facility] Last Admin: 05/31/18 21:54 Dose: 500 mg Pantoprazole Sodium (Protonix -) 40 mg PO DAILY [facility] Last Admin: 05/31/18 09:42 Dose: 40 mg Thiamine HCl (Vitamin B1 -) 100 mg PO DAILY [facility] Last Admin: 05/31/18 09:43 Dose: 100 mg Valacyclovir HCl (Valtrex -) 500 mg PO BID [facility] Last Admin: 05/31/18 21:53 Dose: 500 mg Last Vital Signs Temp Pulse Resp BP Pulse Ox 97.6 F 82 20 150/98 97 05/31/18 19:00 05/31/18 19:00 05/31/18 19:00 05/31/18 19:00 05/30/18 21:00 Lungs clear Heart reg Abd soft nontender ext mild edema CBC, BMP 05/31/18 07:00 05/31/18 07:00 CBC, BMP 05/30/18 07:30 05/30/18 07:30 IMP- worsening azotemia probably prerenal from fluid deficit he has poor po intake and his iv fluid rate is very low Plan- 250 cc bolus and increase rate to 75 cc
[2018-06-01] MEDS ORDERED: PIPERACILLIN/TAZOBACTAM 3.375 GM VIAL IVPB ONE ×3 (01:14→16:55)
[2018-06-01] MEDS ORDERED: DEXTROSE 5%-WATER - 50 ML IVPB ONE ×3 (01:15→16:55)
[2018-06-01] MEDS: PIPERACILLIN/TAZOB 3.375 GM 3.375 GM in DEXTROSE 5%-WATER - 50 ML IVPB SCH ×3 (01:20→17:06)
[2018-06-01] MEDS: SODIUM CHLORIDE 1,000 ML IV SCH ×2 (01:21→19:00)
[2018-06-01] MEDS: ALBUTEROL SO4 0.083% IH SOL 2.5 MG/3 ML VIAL.NEB. NEB PRN (08:45)
[2018-06-01 08:48] LABS: HEMOGLOBIN 11.2 GM/dL (11.7-16.9); MCH 33.9 pg (25.7-33.7); MCHC 33.9 g/dl (32.0-35.9); MEAN CELL VOLUME 100.1 fl (80-96); MEAN PLT VOLUME 11.1 fl (7.5-11.1); PLATELET COUNT 150 K/MM3 (134-434); RDW 16.4 % (11.9-15.9); WHITE BLOOD COUNT 9.9 K/mm3 (4.0-10.0)
[2018-06-01 09:26] LABS: ALBUMIN 2.9 g/dl (3.4-5.0); ALK PHOS 121 U/L (45-117); ANION GAP 11 MMOL/L (8-16); BILIRUBIN,TOTAL 0.7 mg/dL (0.2-1); BLOOD UREA NITROGEN 50 mg/dL (7-18); CHLORIDE 114 mmol/L (98-107); CO2 18 mmol/L (21-32); CREATININE 2.2 mg/dL (0.55-1.3); GLUCOSE,RANDOM 91 mg/dL (74-106); POTASSIUM 3.4 mmol/L (3.5-5.1); SGOT/AST 50 U/L (15-37); SGPT/ALT 15 U/L (13-61); SODIUM 143 mmol/L (136-145); TOT PROT 6.2 g/dl (6.4-8.2)
[2018-06-01] MEDS ORDERED: PT OWN MED DRAWER 7, Y5N ONE ×2 (09:31→20:53)
--- NOTE | 2018-06-01 09:34 | PN ---
Progress Note, Physician Chief Complaint: UTI JOSH Elevated troponin History of Present Illness: Previous notes and events reviewed awake with noted increased confusion NAD RLE US positive for DVT poor appetite noted, taking more liquids than solids patient with decreased urine output total of 90cc of urine during the night despite IVF challenge c/o SOB--portable CXR STAT ordered patient noted with abdomen more distended - Current Medication List Current Medications: Active Medications Albuterol Sulfate (Ventolin 0.083% Nebulizer Soln -) 1 amp NEB Q6H PRN PRN Reason: SHORT OF BREATH/WHEEZING Last Admin: 06/01/18 08:45 Dose: 1 amp Amlodipine Besylate (Norvasc -) 2.5 mg PO DAILY [facility] Last Admin: 05/31/18 09:42 Dose: 2.5 mg Atorvastatin Calcium (Lipitor -) 40 mg PO HS [facility] Last Admin: 05/31/18 21:53 Dose: 40 mg Calcitonin (Miacalcin Injection -) 350 unit SQ BID [facility] Stop: 06/02/18 22:01 Enoxaparin Sodium (Lovenox -) 90 mg SQ BID [facility] Last Admin: 05/31/18 21:53 Dose: 90 mg Folic Acid (Folic Acid -) 1 mg PO DAILY [facility] Last Admin: 05/31/18 09:42 Dose: 1 mg Piperacillin Sod/Tazobactam (Sod 3.375 gm/ Dextrose) 50 mls @ 100 mls/hr IVPB Q8H-IV [facility]; Protocol Last Admin: 06/01/18 01:20 Dose: 100 mls/hr Sodium Chloride (Normal Saline -) 1,000 mls @ 75 mls/hr IV ASDIR [facility] Last Admin: 06/01/18 01:21 Dose: 75 mls/hr Levetiracetam (Keppra -) 500 mg PO BID [facility] Last Admin: 05/31/18 21:54 Dose: 500 mg Pantoprazole Sodium (Protonix -) 40 mg PO DAILY [facility] Last Admin: 05/31/18 09:42 Dose: 40 mg Thiamine HCl (Vitamin B1 -) 100 mg PO DAILY [facility] Last Admin: 05/31/18 09:43 Dose: 100 mg Valacyclovir HCl (Valtrex -) 500 mg PO BID [facility] Last Admin: 05/31/18 21:53 Dose: 500 mg - Objective Vital Signs: Vital Signs Temperature 98.3 F 06/01/18 05:36 Pulse Rate 81 06/01/18 05:36 Respiratory Rate 20 06/01/18 05:36 Blood Pressure 122/71 06/01/18 05:36 O2 Sat by Pulse Oximetry (%) 90 L 05/31/18 21:00 Constitutional: Yes: Mild Distress Eyes: Yes: Conjunctiva Clear HENT: Yes: Atraumatic Cardiovascular: Yes: Regular Rate and Rhythm Respiratory: Yes: On Nasal O2, Rales, Tachypnea Gastrointestinal: Yes: Soft, Ascites, Tenderness (generalized) Genitourinary: Yes: Block Present Musculoskeletal: Yes: Muscle Weakness Edema: Yes (RLE) Neurological: Yes: Alert, Confusion Psychiatric: Yes: Alert Labs: CBC, BMP 06/01/18 08:30 06/01/18 08:30 INR, PTT INR 1.18 (0.83-1.09) H 05/28/18 07:30 Microbiology 05/26/18 14:40 Blood - Peripheral Venous Blood Culture - Final NO GROWTH AFTER 5 DAYS INCUBATION 05/26/18 14:40 Blood - Peripheral Venous Blood Culture - Final NO GROWTH AFTER 5 DAYS INCUBATION 05/28/18 12:50 Stool Clostridioides difficile Antigen - Final 05/28/18 12:50 Stool Clostridioides difficile Toxin Assay - Final 05/26/18 15:12 Urine - Urine Clean Catch Urine Culture - Final Escherichia Coli Esbl [employer] 05/27/18 06:50 Nares - Mrsa Screen - Left MRSA Screen - Final NO MRSA ISOLATED 05/27/18 06:50 Nares - Mrsa Screen - Right MRSA Screen - Final NO MRSA ISOLATED Problem List - Problems (1) Lymphoma Assessment/Plan: -heme/onc on board -CT scan shows very large mid epigastric mass extending into the retroperitineumconsistent with a large lymph node mass, right pericardiophrenic angle lymphadenopathy, multiple left lower abdominal and upper pelvic masses consistent with additional neoplastic process -palliative care consult Code(s): C85.90 - NON-HODGKIN LYMPHOMA, UNSPECIFIED, UNSPECIFIED SITE Qualifiers: Lymphoma type: unspecified type Lymphoma site: unspecified region Qualified Code(s): C85.90 - Non-Hodgkin lymphoma, unspecified, unspecified site (2) UTI (urinary tract infection) Assessment/Plan: -ID on board -afebrile -no leukocytosis, wbc 9.9 -UA show 3+ protein, 1+ blood, 2+ leuks, UC positive for lactose fermenting neg bacilli -continue with IV zosyn Code(s): N39.0 - URINARY TRACT INFECTION, SITE NOT SPECIFIED Qualifiers: Urinary tract infection type: site unspecified Hematuria presence: without hematuria Qualified Code(s): N39.0 - Urinary tract infection, site not specified (3) HTN (hypertension) Assessment/Plan: -low Na diet -amlodipine Code(s): I10 - ESSENTIAL (PRIMARY) HYPERTENSION Qualifiers: Hypertension type: essential hypertension Qualified Code(s): I10 - Essential (primary) hypertension (4) Troponin level elevated Assessment/Plan: -troponin 0.11, hx of elev trop -will monitor trop for downtrend -cardiology on board Code(s): R74.8 - ABNORMAL LEVELS OF OTHER SERUM ENZYMES (5) Retroperitoneal mass Assessment/Plan: -GI on board -elev AST 48 and Alk phos 129 -CT scan show very large mid epigastric mass extending into the retroperitoneum consistent with a large lymph node mass, multiple left lower abdominal and upper pelvic masses consistent with additional neoplastic process -heme/onc on board -Abdominal US shows ascites in upper abdomen, liver is slightly enlarged, it is hyperechoic in texture consistent with with diffuse fatty liver infiltration, , no discrete mass is identified within the liver, pancreas cannot be visualized due to large midline mass -repeat Abdominal US to determine if distention mass vs ascites Code(s): R19.00 - INTRA-ABD AND PELVIC SWELLING, MASS AND LUMP, UNSP SITE (6) JOSH (acute kidney injury) Assessment/Plan: -renal on board -BUN/Cr 50/2.2 -monitor renal function daily -Renal US ordered STAT due to decrease in urine output despite IVF challenge Code(s): N17.9 - ACUTE KIDNEY FAILURE, UNSPECIFIED (7) Pleural effusion Assessment/Plan: -CT scan shows Left pleural effusion and basilar atelectasis -pulm consult -O2 via NC prn for SOB -albuterol prn for SOB -repeat CXR shows worsening pleural effusion on L lung--if NOK agrees to aggressive treatment will hold AC for possible thoracentesis Code(s): J90 - PLEURAL EFFUSION, NOT ELSEWHERE CLASSIFIED (8) DVT (deep venous thrombosis) Assessment/Plan: -Vascular US RLE shows extensive deep venous thrombosis within the common, deep , and superficial femoral veins, as well as the popliteal and posterior tibial veins, thrombus is also noted in greater saphenous vein. -Lovenox 90mg BID -Echocardiogram -cardiology on board -hematology on board -echo reviewed Code(s): I82.409 - ACUTE EMBOLISM AND THOMBOS UNSP DEEP VN UNSP LOWER EXTREMITY Assessment/Plan see problem list dvt ppx palliative care--will speak with NOK about patient end of life wishes PT
[2018-06-01] MEDS: amLODIPine BESYLATE 5 MG TABLET (FP) PO SCH (09:41)
[2018-06-01] MEDS: PANTOPRAZOLE 40 MG TABLET (FP) PO SCH (09:42)
[2018-06-01] MEDS: FOLIC ACID 1 MG TABLET (FP) PO SCH (09:42)
[2018-06-01] MEDS: levETIRAcetam 500 MG TABLET (FP) PO SCH ×2 (09:42→21:08)
[2018-06-01] MEDS: valACYclovir HCL 500 MG TABLET (FP) PO SCH ×2 (09:42→21:08)
[2018-06-01] MEDS: ENOXAPARIN NA (PORCINE) 100 MG/1 ML DISP.SYRIN SQ SCH (09:42)
[2018-06-01] MEDS: THIAMINE HCL 100 MG TABLET (FP) PO SCH (09:43)
[2018-06-01] MEDS ORDERED: ENOXAPARIN NA (PORCINE) 80 MG/0.8 ML DISP.SYRIN SQ SCH (10:00)
[2018-06-01] MEDS: ENOXAPARIN NA (PORCINE) 80 MG/0.8 ML DISP.SYRIN SQ SCH ×2 (10:10→21:09)
--- NOTE | 2018-06-01 10:17 | PN ---
Progress Note (short form) - Note Progress Note: Awake, alert, responsive, but confused. Slightly more tachypneic than yesterday. He denies shortness of breath or chest pain but says that his kidneys are hurting. CXR: New left chest opacification: effusion =/- atelectasis Intake & Output 05/29/18 05/30/18 05/31/18 06/01/18 23:59 23:59 23:59 23:59 Intake Total 2240 1380 1732 913 Output Total 750 700 30 90 Balance 1639 738 0447 823 Weight 184 lb 9 oz 192 lb 1 oz 196 lb 6 oz 198 lb 2 oz Last Vital Signs Temp Pulse Resp BP Pulse Ox 98.3 F 81 20 122/71 90 L 06/01/18 05:36 06/01/18 05:36 06/01/18 05:36 06/01/18 05:36 05/31/18 21:00 Active Medications Albuterol Sulfate (Ventolin 0.083% Nebulizer Soln -) 1 amp NEB Q6H PRN PRN Reason: SHORT OF BREATH/WHEEZING Last Admin: 06/01/18 08:45 Dose: 1 amp Amlodipine Besylate (Norvasc -) 2.5 mg PO DAILY [facility] Last Admin: 06/01/18 09:41 Dose: 2.5 mg Atorvastatin Calcium (Lipitor -) 40 mg PO HS [facility] Last Admin: 05/31/18 21:53 Dose: 40 mg Calcitonin (Miacalcin Injection -) 350 unit SQ BID [facility] Stop: 06/02/18 22:01 Enoxaparin Sodium (Lovenox -) 90 mg SQ BID [facility] Folic Acid (Folic Acid -) 1 mg PO DAILY [facility] Last Admin: 06/01/18 09:42 Dose: 1 mg Piperacillin Sod/Tazobactam (Sod 3.375 gm/ Dextrose) 50 mls @ 100 mls/hr IVPB Q8H-IV DIANE; Protocol Last Admin: 06/01/18 09:43 Dose: 100 mls/hr Sodium Chloride (Normal Saline -) 1,000 mls @ 75 mls/hr IV ASDIR [facility] Last Admin: 06/01/18 01:21 Dose: 75 mls/hr Levetiracetam (Keppra -) 500 mg PO BID [facility] Last Admin: 06/01/18 09:42 Dose: 500 mg Pantoprazole Sodium (Protonix -) 40 mg PO DAILY [facility] Last Admin: 06/01/18 09:42 Dose: 40 mg Thiamine HCl (Vitamin B1 -) 100 mg PO DAILY [facility] Last Admin: 06/01/18 09:43 Dose: 100 mg Valacyclovir HCl (Valtrex -) 500 mg PO BID [facility] Last Admin: 06/01/18 09:42 Dose: 500 mg Gen: Mildly tachypneic at rest Heart: RRR Lung: decreased breath sounds on the left, few scattered rhonchi Abd: soft, more distended, (?) Ascites, No guarding or rigidity Ext: chronic changes Laboratory Results - last 24 hr 06/01/18 06/01/18 08:30 08:30 WBC 9.9 RBC 3.30 L Hgb 11.2 L Hct 33.0 L MCV 100.1 H MCH 33.9 H MCHC 33.9 RDW 16.4 H Plt Count 150 MPV 11.1 D Sodium 143 Potassium 3.4 L Chloride 114 H Carbon Dioxide 18 L Anion Gap 11 BUN 50 H Creatinine 2.2 H Creat Clearance w eGFR 30.00 Random Glucose 91 Calcium 11.0 H Total Bilirubin 0.7 AST 50 H ALT 15 Alkaline Phosphatase 121 H Total Protein 6.2 L Albumin 2.9 L Problem List - Problems (1) UTI (urinary tract infection) Code(s): N39.0 - URINARY TRACT INFECTION, SITE NOT SPECIFIED Qualifiers: Urinary tract infection type: site unspecified Hematuria presence: without hematuria Qualified Code(s): N39.0 - Urinary tract infection, site not specified (2) JOSH (acute kidney injury) Code(s): N17.9 - ACUTE KIDNEY FAILURE, UNSPECIFIED (3) Lymphoma Code(s): C85.90 - NON-HODGKIN LYMPHOMA, UNSPECIFIED, UNSPECIFIED SITE Qualifiers: Lymphoma type: unspecified type Lymphoma site: unspecified region Qualified Code(s): C85.90 - Non-Hodgkin lymphoma, unspecified, unspecified site (4) Pleural effusion Code(s): J90 - PLEURAL EFFUSION, NOT ELSEWHERE CLASSIFIED (5) Atrial fibrillation Code(s): I48.91 - UNSPECIFIED ATRIAL FIBRILLATION Qualifiers: Atrial fibrillation type: persistent Qualified Code(s): I48.1 - Persistent atrial fibrillation (6) COPD (chronic obstructive pulmonary disease) Code(s): J44.9 - CHRONIC OBSTRUCTIVE PULMONARY DISEASE, UNSPECIFIED Qualifiers: COPD type: chronic bronchitis A/P Altered Mental Status improving UTI Acute Kidney Injury +Troponins likely Demand Ischemia COPD Enlarging Left Pleural Effusion Atelectasis Atrial Fibrillation h/o CVA Follicular Lymphoma HTN Hyperlipidemia R/O Ascites - The patient's was contacted by the primary team. She is coming to the hospital to discuss GOC. If continued workup is requested: may benefit from thoracentesis/paracentesis. (Must hold AC) - Antibiotics per ID - IVF per Renal - monitor urine output, creatinine - O2 to keep SpO2 >90% - inhaled bronchodilators as needed - DVT prophylaxis - Palliative care evaluation to help decide further GOC - Can be monitored in current setting. If further decompensation or clinical change, please contact for re-assessment. Dr Galvez
--- NOTE | 2018-06-01 12:01 | PN ---
Progress Note (short form) - Note Progress Note: Spoke at length with patient RACHAEL Lora and Palliative care RN Sonia about patients conditions and options available for him. Family agreed to supportive care and for transfer to [facility] when bed available. Patient status changed to DNR/DNI, MOLST form signed and completed. Problem List - Problems (1) Lymphoma Code(s): C85.90 - NON-HODGKIN LYMPHOMA, UNSPECIFIED, UNSPECIFIED SITE Qualifiers: Lymphoma type: unspecified type Lymphoma site: unspecified region Qualified Code(s): C85.90 - Non-Hodgkin lymphoma, unspecified, unspecified site (2) UTI (urinary tract infection) Code(s): N39.0 - URINARY TRACT INFECTION, SITE NOT SPECIFIED Qualifiers: Urinary tract infection type: site unspecified Hematuria presence: without hematuria Qualified Code(s): N39.0 - Urinary tract infection, site not specified (3) HTN (hypertension) Code(s): I10 - ESSENTIAL (PRIMARY) HYPERTENSION Qualifiers: Hypertension type: essential hypertension Qualified Code(s): I10 - Essential (primary) hypertension (4) Troponin level elevated Code(s): R74.8 - ABNORMAL LEVELS OF OTHER SERUM ENZYMES (5) Retroperitoneal mass Code(s): R19.00 - INTRA-ABD AND PELVIC SWELLING, MASS AND LUMP, UNSP SITE (6) JOSH (acute kidney injury) Code(s): N17.9 - ACUTE KIDNEY FAILURE, UNSPECIFIED (7) Pleural effusion Code(s): J90 - PLEURAL EFFUSION, NOT ELSEWHERE CLASSIFIED (8) DVT (deep venous thrombosis) Code(s): I82.409 - ACUTE EMBOLISM AND THOMBOS UNSP DEEP VN UNSP LOWER EXTREMITY
--- NOTE | 2018-06-01 16:44 | PN ---
Progress Note, Physician History of Present Illness: Pt seen and examined at bedside. He is confused and unable to answer questions. - Current Medication List Current Medications: Active Medications Albuterol Sulfate (Ventolin 0.083% Nebulizer Soln -) 1 amp NEB Q6H PRN PRN Reason: SHORT OF BREATH/WHEEZING Last Admin: 06/01/18 08:45 Dose: 1 amp Amlodipine Besylate (Norvasc -) 2.5 mg PO DAILY [facility] Last Admin: 06/01/18 09:41 Dose: 2.5 mg Atorvastatin Calcium (Lipitor -) 40 mg PO HS [facility] Last Admin: 05/31/18 21:53 Dose: 40 mg Calcitonin (Miacalcin Injection -) 350 unit SQ BID [facility] Stop: 06/02/18 22:01 Enoxaparin Sodium (Lovenox -) 90 mg SQ BID [facility] Folic Acid (Folic Acid -) 1 mg PO DAILY [facility] Last Admin: 06/01/18 09:42 Dose: 1 mg Piperacillin Sod/Tazobactam (Sod 3.375 gm/ Dextrose) 50 mls @ 100 mls/hr IVPB Q8H-IV DIANE; Protocol Last Admin: 06/01/18 09:43 Dose: 100 mls/hr Sodium Chloride (Normal Saline -) 1,000 mls @ 75 mls/hr IV ASDIR [facility] Last Admin: 06/01/18 01:21 Dose: 75 mls/hr Levetiracetam (Keppra -) 500 mg PO BID [facility] Last Admin: 06/01/18 09:42 Dose: 500 mg Morphine Sulfate (Morphine Sulfate) 2 mg IVPUSH Q4H PRN PRN Reason: PAIN LEVEL 6-10 Pantoprazole Sodium (Protonix -) 40 mg PO DAILY [facility] Last Admin: 06/01/18 09:42 Dose: 40 mg Thiamine HCl (Vitamin B1 -) 100 mg PO DAILY [facility] Last Admin: 06/01/18 09:43 Dose: 100 mg Valacyclovir HCl (Valtrex -) 500 mg PO BID [facility] Last Admin: 06/01/18 09:42 Dose: 500 mg - Objective Vital Signs: Vital Signs Temperature 97.4 F L 06/01/18 09:00 Pulse Rate 81 06/01/18 09:00 Respiratory Rate 22 H 06/01/18 09:00 Blood Pressure 140/79 06/01/18 09:00 O2 Sat by Pulse Oximetry (%) 90 L 05/31/18 21:00 Constitutional: Yes: Mild Distress Eyes: Yes: Conjunctiva Clear Cardiovascular: Yes: S1, S2 Respiratory: Yes: On Nasal O2, Rhonchi Gastrointestinal: Yes: Ascites Genitourinary: Yes: Block Present, Oliguria Edema: Yes Edema: LLE: 2+, RLE: 2+ Neurological: Yes: Confusion Labs: CBC, BMP 06/01/18 08:30 06/01/18 08:30 INR, PTT INR 1.18 (0.83-1.09) H 05/28/18 07:30 Problem List - Problems (1) JOSH (acute kidney injury) Code(s): N17.9 - ACUTE KIDNEY FAILURE, UNSPECIFIED (2) Lymphoma Code(s): C85.90 - NON-HODGKIN LYMPHOMA, UNSPECIFIED, UNSPECIFIED SITE Qualifiers: Lymphoma type: unspecified type Lymphoma site: unspecified region Qualified Code(s): C85.90 - Non-Hodgkin lymphoma, unspecified, unspecified site (3) UTI (urinary tract infection) Code(s): N39.0 - URINARY TRACT INFECTION, SITE NOT SPECIFIED Qualifiers: Urinary tract infection type: site unspecified Hematuria presence: without hematuria Qualified Code(s): N39.0 - Urinary tract infection, site not specified Assessment/Plan Current Medications Generic Name Dose Route Start Last Admin Trade Name Freq PRN Reason Stop Dose Admin Albuterol Sulfate 1 amp 05/26/18 21:31 06/01/18 08:45 Ventolin 0.083% Nebulizer Soln - NEB 1 amp Q6H PRN Administration SHORT OF BREATH/WHEEZING Amlodipine Besylate 2.5 mg 05/27/18 10:00 06/01/18 09:41 Norvasc - PO 2.5 mg DAILY [facility] Administration Atorvastatin Calcium 40 mg 05/26/18 22:00 05/31/18 21:53 Lipitor - PO 40 mg HS [facility] Administration Calcitonin 350 unit 06/01/18 10:00 Miacalcin Injection - SQ 06/02/18 22:01 BID DIANE Enoxaparin Sodium 90 mg 06/01/18 10:00 Lovenox - SQ BID [facility] Folic Acid 1 mg 05/27/18 10:00 06/01/18 09:42 Folic Acid - PO 1 mg DAILY [facility] Administration Piperacillin Sod/Tazobactam 50 mls @ 100 mls/hr 05/27/18 19:30 06/01/18 09:43 Sod 3.375 gm/ Dextrose IVPB 100 mls/hr Q8H-IV DIANE Administration Protocol Sodium Chloride 1,000 mls @ 75 mls/hr 05/31/18 19:00 06/01/18 01:21 Normal Saline - IV 75 mls/hr ASDIR [facility] Administration Levetiracetam 500 mg 05/26/18 22:00 06/01/18 09:42 Keppra - PO 500 mg BID [facility] Administration Morphine Sulfate 2 mg 06/01/18 14:45 Morphine Sulfate IVPUSH Q4H PRN PAIN LEVEL 6-10 Pantoprazole Sodium 40 mg 05/27/18 10:00 06/01/18 09:42 Protonix - PO 40 mg DAILY [facility] Administration Thiamine HCl 100 mg 05/27/18 10:00 06/01/18 09:43 Vitamin B1 - PO 100 mg DAILY [facility] Administration Valacyclovir HCl 500 mg 05/26/18 22:00 06/01/18 09:42 Valtrex - PO 500 mg BID [facility] Administration Impression 1. JOSH 2. UTI 3. follicular lymphoma 4. endocarditis s/p valve replacement 5. a-fib 6. cva 7. htn 8. hld 9. COPD Plan - urine output is decreased - pt is not on comfort care and will likely be going to [place] tomorrow - discussed with medical team - discussed with nursing team - will follow PRN - family do not want any more testing or workup
--- NOTE | 2018-06-01 16:59 | PN ---
Progress Note (short form) - Note Progress Note: Patient seen and examined Prior notes reviewed and discussed with nursing No additional work up and plans for [place] transfer tomorrow Last Vital Signs Temp Pulse Resp BP Pulse Ox 97.4 F L 81 22 H 140/79 90 L 06/01/18 09:00 06/01/18 09:00 06/01/18 09:00 06/01/18 09:00 05/31/18 21:00 Confused Congested Lungs- rhonchi Cor _RSR Abdomen - ascites Extremities - LE edema Block - no output. CBC, BMP 06/01/18 08:30 06/01/18 08:30 Current Medications Generic Name Dose Route Start Last Admin Trade Name Freq PRN Reason Stop Dose Admin Albuterol Sulfate 1 amp 05/26/18 21:31 06/01/18 08:45 Ventolin 0.083% Nebulizer Soln - NEB 1 amp Q6H PRN Administration SHORT OF BREATH/WHEEZING Amlodipine Besylate 2.5 mg 05/27/18 10:00 06/01/18 09:41 Norvasc - PO 2.5 mg DAILY [facility] Administration Atorvastatin Calcium 40 mg 05/26/18 22:00 05/31/18 21:53 Lipitor - PO 40 mg HS [facility] Administration Calcitonin 350 unit 06/01/18 10:00 Miacalcin Injection - SQ 06/02/18 22:01 BID DIANE Enoxaparin Sodium 90 mg 06/01/18 10:00 Lovenox - SQ BID [facility] Folic Acid 1 mg 05/27/18 10:00 06/01/18 09:42 Folic Acid - PO 1 mg DAILY [facility] Administration Piperacillin Sod/Tazobactam 50 mls @ 100 mls/hr 05/27/18 19:30 06/01/18 09:43 Sod 3.375 gm/ Dextrose IVPB 100 mls/hr Q8H-IV [facility] Administration Protocol Sodium Chloride 1,000 mls @ 75 mls/hr 05/31/18 19:00 06/01/18 01:21 Normal Saline - IV 75 mls/hr ASDIR [facility] Administration Levetiracetam 500 mg 05/26/18 22:00 06/01/18 09:42 Keppra - PO 500 mg BID [facility] Administration Morphine Sulfate 2 mg 06/01/18 14:45 Morphine Sulfate IVPUSH Q4H PRN PAIN LEVEL 6-10 Pantoprazole Sodium 40 mg 05/27/18 10:00 06/01/18 09:42 Protonix - PO 40 mg DAILY [facility] Administration Thiamine HCl 100 mg 05/27/18 10:00 06/01/18 09:43 Vitamin B1 - PO 100 mg DAILY [facility] Administration Valacyclovir HCl 500 mg 05/26/18 22:00 06/01/18 09:42 Valtrex - PO 500 mg BID [facility] Administration Impression: Transformed lymphoma Fluid overload Hypercalcemia Elevated ammonia Anuric Abdominal mass. Plan: Comfort No additional treatments or workup per
[2018-06-01] MEDS: CALCITONIN - SALMON SYNTHETIC 400 UNIT/2 ML VIAL SQ SCH ×2 (17:07→22:10)
[2018-06-01] MEDS: ATORVASTATIN CA 40 MG TABLET (FP) PO SCH (21:09)
[2018-06-02] MEDS ORDERED: DEXTROSE 5%-WATER - 50 ML IVPB ONE (01:40)
[2018-06-02] MEDS ORDERED: PIPERACILLIN/TAZOBACTAM 3.375 GM VIAL IVPB ONE (01:40)
[2018-06-02] MEDS: PIPERACILLIN/TAZOB 3.375 GM 3.375 GM in DEXTROSE 5%-WATER - 50 ML IVPB SCH (01:50)
[2018-06-02 08:00] LABS: HEMATOCRIT 32.3 % (35.4-49); MCH 34.1 pg (25.7-33.7); MCHC 34.2 g/dl (32.0-35.9); MEAN CELL VOLUME 99.9 fl (80-96); PLATELET COUNT 134 K/MM3 (134-434); RBC 3.24 M/mm3 (4.00-5.60); RDW 16.6 % (11.9-15.9); WHITE BLOOD COUNT 9.8 K/mm3 (4.0-10.0)
[2018-06-02] MEDS: ALBUTEROL SO4 0.083% IH SOL 2.5 MG/3 ML VIAL.NEB. NEB PRN (08:11)
[2018-06-02 08:24] LABS: ALBUMIN 2.9 g/dl (3.4-5.0); ALK PHOS 118 U/L (45-117); ANION GAP 10 MMOL/L (8-16); BILIRUBIN,TOTAL 0.7 mg/dL (0.2-1); BLOOD UREA NITROGEN 52 mg/dL (7-18); CALCIUM 11.4 mg/dL (8.5-10.1); CHLORIDE 117 mmol/L (98-107); CO2 19 mmol/L (21-32); CREATININE 2.3 mg/dL (0.55-1.3); GLUCOSE,RANDOM 94 mg/dL (74-106); POTASSIUM 3.5 mmol/L (3.5-5.1); SGOT/AST 58 U/L (15-37); SGPT/ALT 14 U/L (13-61); SODIUM 146 mmol/L (136-145); TOT PROT 6.1 g/dl (6.4-8.2)
[2018-06-02] MEDS ORDERED: PT OWN MED DRAWER 7, Y5N ONE (10:49)
[2018-06-02] MEDS: amLODIPine BESYLATE 5 MG TABLET (FP) PO SCH (11:01)
[2018-06-02] MEDS: ENOXAPARIN NA (PORCINE) 80 MG/0.8 ML DISP.SYRIN SQ SCH ×2 (11:02→21:50)
[2018-06-02] MEDS: PANTOPRAZOLE 40 MG TABLET (FP) PO SCH (11:02)
[2018-06-02] MEDS: FOLIC ACID 1 MG TABLET (FP) PO SCH (11:02)
[2018-06-02] MEDS: valACYclovir HCL 500 MG TABLET (FP) PO SCH ×2 (11:02→21:52)
[2018-06-02] MEDS: CALCITONIN - SALMON SYNTHETIC 400 UNIT/2 ML VIAL SQ SCH ×2 (11:03→21:50)
[2018-06-02] MEDS: levETIRAcetam 500 MG TABLET (FP) PO SCH ×2 (11:03→21:51)
[2018-06-02] MEDS: THIAMINE HCL 100 MG TABLET (FP) PO SCH (11:04)
--- NOTE | 2018-06-02 11:51 | DS ---
Physical Examination Vital Signs: Vital Signs Temperature 99.5 F 06/02/18 06:00 Pulse Rate 80 06/02/18 06:00 Respiratory Rate 20 06/02/18 06:00 Blood Pressure 123/70 06/02/18 06:00 O2 Sat by Pulse Oximetry (%) 91 L 06/01/18 22:00 Findings/Remarks: Patient is a 68 y/o male with past medical history of follicular lymphoma (last chemo 03/02), COPD, anemia, prosthetic heart valve, pacemaker placement. Patient presented to ER with complaints of generalized weakness, failure to thrive with decreased appetite recently. 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 Received IV antibiotic therapy. Abdominal CT scan shows a very large epigastric measuring 13.8 x 11.7 x 19.4cm, the mass most likely represents a lymph node mass, in light of the clinical history of lymphoma, the mass has markedly increased in size since last prior study 07/14/17, multiple left lower abdominal and upper pelvic masses consistent with additional neoplastic process. Followed by oncology during admission. RLE noted with edema and RLE doppler shows extensive deep vein thrombosis. Patient condition has worsened with abdomen increasing in distention, tachypnea. Patient was placed on DNR/DNI status and only supportive care as per family. Will be transferred to [facility] for further management. Constitutional: Yes: Mild Distress Eyes: Yes: Conjunctiva Clear HENT: Yes: Atraumatic Cardiovascular: Yes: Regular Rate and Rhythm Respiratory: Yes: On Nasal O2, Rhonchi, Tachypnea Gastrointestinal: Yes: Soft, Distention Renal/: Yes: Incontinence Musculoskeletal: Yes: Muscle Weakness Edema: Yes Edema: LLE: 1+, RLE: 1+ Neurological: Yes: Alert, Confusion Psychiatric: Yes: Alert Labs: CBC, BMP 06/02/18 07:30 06/02/18 07:30 Discharge Summary Reason For Visit: URINARY TRACT INFECTION, LYMPHOMA, WEAKNESS Current Active Problems JOSH (acute kidney injury) (Acute) Abdominal distention (Acute) Abnormal liver function tests (Acute) DVT (deep venous thrombosis) (Acute) Lymphoma (Acute) Pacemaker (Acute) Pleural effusion (Acute) UTI (urinary tract infection) (Acute) Hospital Course: see progress notes Laboratory Tests 05/26/18 05/26/18 05/26/18 14:40 14:40 14:47 WBC 5.3 RBC 3.44 L Hgb 11.8 Hct 34.4 L D MCV 99.9 H MCH 34.3 H D MCHC 34.3 RDW 16.3 H Plt Count 115 L D MPV 9.0 Absolute Neuts (auto) 4.0 Neutrophils % 75.0 Neutrophils % (Manual) 76.0 Band Neutrophils % 3.0 Lymphocytes % 7.4 L D Lymphocytes % (Manual) 3.0 L D Monocytes % 15.3 H D Monocytes % (Manual) 15 H D Eosinophils % 1.6 D Eosinophils % (Manual) 1.0 D Basophils % 0.7 Basophils % (Manual) 0.0 Myelocytes % (Man) 1 D Promyelocytes % (Man) 0 Blast Cells % (Manual) 0 Nucleated RBC % 0 Metamyelocytes 0 D Hypochromia 0 Platelet Estimate Decreased Polychromasia 1+ Poikilocytosis 2+ Anisocytosis 1+ Microcytosis 0 Macrocytosis 1+ Target Cells 1+ Tear Drop Cells 1+ Ovalocytes 1+ Schistocytes 1+ PT with INR INR PTT (Actin FS) Sodium 140 Potassium 4.8 Chloride 108 H Carbon Dioxide 24 Anion Gap 8 BUN 44 H Creatinine 1.8 H Creat Clearance w eGFR 37.82 POC Glucometer Random Glucose 81 Calcium 11.7 H Total Bilirubin 0.8 AST 46 H ALT 13 Alkaline Phosphatase 128 H Ammonia 38.50 H Creatine Kinase 31 Troponin I 0.13 H Total Protein 6.6 Albumin 3.4 Urine Color Urine Appearance Urine pH Ur Specific [place] Urine Protein Urine Glucose (UA) Urine Ketones Urine Blood Urine Nitrite Urine Bilirubin Urine Urobilinogen Ur Leukocyte Esterase Urine WBC (Auto) Urine RBC (Auto) Calcium Oxalate Crystal Urine Bacteria Urine Mucus Ur Random Sodium Ur Random Potassium Ur Random Chloride Urine Creatinine 05/26/18 05/27/18 05/27/18 15:12 01:00 01:00 WBC RBC Hgb Hct MCV MCH MCHC RDW Plt Count MPV Absolute Neuts (auto) Neutrophils % Neutrophils % (Manual) Band Neutrophils % Lymphocytes % Lymphocytes % (Manual) Monocytes % Monocytes % (Manual) Eosinophils % Eosinophils % (Manual) Basophils % Basophils % (Manual) Myelocytes % (Man) Promyelocytes % (Man) Blast Cells % (Manual) Nucleated RBC % Metamyelocytes Hypochromia Platelet Estimate Polychromasia Poikilocytosis Anisocytosis Microcytosis Macrocytosis Target Cells Tear Drop Cells Ovalocytes Schistocytes PT with INR INR PTT (Actin FS) 27.5 Sodium Potassium Chloride Carbon Dioxide Anion Gap BUN Creatinine Creat Clearance w eGFR POC Glucometer Random Glucose Calcium Total Bilirubin AST ALT Alkaline Phosphatase Ammonia Creatine Kinase 54 Troponin I 0.13 H Total Protein Albumin Urine Color Yellow Urine Appearance Turbid Urine pH 5.0 Ur Specific [place] 1.019 Urine Protein 3+ H Urine Glucose (UA) Negative Urine Ketones Negative Urine Blood 1+ H Urine Nitrite Negative Urine Bilirubin Negative Urine Urobilinogen Negative Ur Leukocyte Esterase 2+ H Urine WBC (Auto) 4517 Urine RBC (Auto) 21 Calcium Oxalate Crystal Urine Bacteria Moderate Urine Mucus Rare Ur Random Sodium Ur Random Potassium Ur Random Chloride Urine Creatinine 05/27/18 05/27/18 05/27/18 07:59 07:59 07:59 WBC 9.2 RBC 3.35 L Hgb 11.3 L Hct 33.3 L MCV 99.4 H MCH 33.8 H MCHC 34.0 RDW 16.4 H Plt Count 124 L MPV 9.7 Absolute Neuts (auto) Neutrophils % Neutrophils % (Manual) Band Neutrophils % Lymphocytes % Lymphocytes % (Manual) Monocytes % Monocytes % (Manual) Eosinophils % Eosinophils % (Manual) Basophils % Basophils % (Manual) Myelocytes % (Man) Promyelocytes % (Man) Blast Cells % (Manual) Nucleated RBC % Metamyelocytes Hypochromia Platelet Estimate Polychromasia Poikilocytosis Anisocytosis Microcytosis Macrocytosis Target Cells Tear Drop Cells Ovalocytes Schistocytes PT with INR INR PTT (Actin FS) Sodium 140 Potassium 4.3 Chloride 108 H Carbon Dioxide 21 Anion Gap 11 BUN 40 H Creatinine 1.5 H Creat Clearance w eGFR 46.68 POC Glucometer Random Glucose 85 Calcium 10.9 H Total Bilirubin 0.6 AST 43 H ALT 10 L Alkaline Phosphatase 132 H Ammonia Creatine Kinase 60 Troponin I 0.12 H Total Protein 6.7 Albumin 3.3 L Urine Color Urine Appearance Urine pH Ur Specific [place] Urine Protein Urine Glucose (UA) Urine Ketones Urine Blood Urine Nitrite Urine Bilirubin Urine Urobilinogen Ur Leukocyte Esterase Urine WBC (Auto) Urine RBC (Auto) Calcium Oxalate Crystal Urine Bacteria Urine Mucus Ur Random Sodium Ur Random Potassium Ur Random Chloride Urine Creatinine 05/27/18 05/27/18 05/27/18 13:05 14:15 14:15 WBC RBC Hgb Hct MCV MCH MCHC RDW Plt Count MPV Absolute Neuts (auto) Neutrophils % Neutrophils % (Manual) Band Neutrophils % Lymphocytes % Lymphocytes % (Manual) Monocytes % Monocytes % (Manual) Eosinophils % Eosinophils % (Manual) Basophils % Basophils % (Manual) Myelocytes % (Man) Promyelocytes % (Man) Blast Cells % (Manual) Nucleated RBC % Metamyelocytes Hypochromia Platelet Estimate Polychromasia Poikilocytosis Anisocytosis Microcytosis Macrocytosis Target Cells Tear Drop Cells Ovalocytes Schistocytes PT with INR INR PTT (Actin FS) Sodium 148 H Potassium 3.5 Chloride 116 H Carbon Dioxide 18 L Anion Gap 14 BUN 33 H Creatinine 1.1 Creat Clearance w eGFR 66.77 POC Glucometer Random Glucose 50 L Calcium 8.1 L Total Bilirubin 0.4 AST 37 ALT 8 L Alkaline Phosphatase 97 Ammonia Creatine Kinase Troponin I Total Protein 4.9 L Albumin 2.5 L Urine Color Ani Urine Appearance Cloudy Urine pH 5.0 Ur Specific [place] 1.027 Urine Protein 2+ H Urine Glucose (UA) Negative Urine Ketones Trace H Urine Blood 1+ H Urine Nitrite Negative Urine Bilirubin 2.0 Urine Urobilinogen Negative Ur Leukocyte Esterase 2+ H Urine WBC (Auto) 332 Urine RBC (Auto) 2 Calcium Oxalate Crystal Rare Urine Bacteria Rare Urine Mucus Rare Ur Random Sodium Ur Random Potassium Ur Random Chloride Urine Creatinine 270.0 05/27/18 05/27/18 05/28/18 21:15 21:42 07:30 WBC RBC Hgb Hct MCV MCH MCHC RDW Plt Count MPV Absolute Neuts (auto) Neutrophils % Neutrophils % (Manual) Band Neutrophils % Lymphocytes % Lymphocytes % (Manual) Monocytes % Monocytes % (Manual) Eosinophils % Eosinophils % (Manual) Basophils % Basophils % (Manual) Myelocytes % (Man) Promyelocytes % (Man) Blast Cells % (Manual) Nucleated RBC % Metamyelocytes Hypochromia Platelet Estimate Polychromasia Poikilocytosis Anisocytosis Microcytosis Macrocytosis Target Cells Tear Drop Cells Ovalocytes Schistocytes PT with INR 13.90 H INR 1.18 H PTT (Actin FS) Sodium Potassium Chloride Carbon Dioxide Anion Gap BUN Creatinine Creat Clearance w eGFR POC Glucometer 72 Random Glucose Calcium Total Bilirubin AST ALT Alkaline Phosphatase Ammonia Creatine Kinase Troponin I Total Protein Albumin Urine Color Urine Appearance Urine pH Ur Specific [place] Urine Protein Urine Glucose (UA) Urine Ketones Urine Blood Urine Nitrite Urine Bilirubin Urine Urobilinogen Ur Leukocyte Esterase Urine WBC (Auto) Urine RBC (Auto) Calcium Oxalate Crystal Urine Bacteria Urine Mucus Ur Random Sodium < 18 L Ur Random Potassium 45.0 Ur Random Chloride 19 L Urine Creatinine 05/28/18 05/28/18 05/28/18 07:30 07:30 07:30 WBC 9.4 RBC 3.17 L Hgb 11.1 L Hct 31.5 L MCV 99.6 H MCH 35.1 H MCHC 35.3 RDW 16.0 H Plt Count 127 L MPV 10.1 Absolute Neuts (auto) Neutrophils % Neutrophils % (Manual) Band Neutrophils % Lymphocytes % Lymphocytes % (Manual) Monocytes % Monocytes % (Manual) Eosinophils % Eosinophils % (Manual) Basophils % Basophils % (Manual) Myelocytes % (Man) Promyelocytes % (Man) Blast Cells % (Manual) Nucleated RBC % Metamyelocytes Hypochromia Platelet Estimate Polychromasia Poikilocytosis Anisocytosis Microcytosis Macrocytosis Target Cells Tear Drop Cells Ovalocytes Schistocytes PT with INR INR PTT (Actin FS) Sodium 139 Potassium 4.1 Chloride 109 H Carbon Dioxide 20 L Anion Gap 10 BUN 41 H Creatinine 1.3 Creat Clearance w eGFR 55.06 POC Glucometer Random Glucose 79 Calcium 10.8 H Total Bilirubin 0.8 AST 46 H ALT 12 L Alkaline Phosphatase 111 Ammonia Creatine Kinase Troponin I 0.11 H Total Protein 6.2 L Albumin 3.2 L Urine Color Urine Appearance Urine pH Ur Specific [place] Urine Protein Urine Glucose (UA) Urine Ketones Urine Blood Urine Nitrite Urine Bilirubin Urine Urobilinogen Ur Leukocyte Esterase Urine WBC (Auto) Urine RBC (Auto) Calcium Oxalate Crystal Urine Bacteria Urine Mucus Ur Random Sodium Ur Random Potassium Ur Random Chloride Urine Creatinine 05/28/18 05/28/18 05/29/18 15:15 15:15 00:45 WBC RBC Hgb Hct MCV MCH MCHC RDW Plt Count MPV Absolute Neuts (auto) Neutrophils % Neutrophils % (Manual) Band Neutrophils % Lymphocytes % Lymphocytes % (Manual) Monocytes % Monocytes % (Manual) Eosinophils % Eosinophils % (Manual) Basophils % Basophils % (Manual) Myelocytes % (Man) Promyelocytes % (Man) Blast Cells % (Manual) Nucleated RBC % Metamyelocytes Hypochromia Platelet Estimate Polychromasia Poikilocytosis Anisocytosis Microcytosis Macrocytosis Target Cells Tear Drop Cells Ovalocytes Schistocytes PT with INR INR PTT (Actin FS) 28.3 53.9 H Sodium Potassium Chloride Carbon Dioxide Anion Gap BUN Creatinine Creat Clearance w eGFR POC Glucometer Random Glucose Calcium Total Bilirubin AST ALT Alkaline Phosphatase Ammonia 49.20 H Creatine Kinase Troponin I Total Protein Albumin Urine Color Urine Appearance Urine pH Ur Specific [place] Urine Protein Urine Glucose (UA) Urine Ketones Urine Blood Urine Nitrite Urine Bilirubin Urine Urobilinogen Ur Leukocyte Esterase Urine WBC (Auto) Urine RBC (Auto) Calcium Oxalate Crystal Urine Bacteria Urine Mucus Ur Random Sodium Ur Random Potassium Ur Random Chloride Urine Creatinine 05/29/18 05/29/18 05/30/18 10:46 10:46 07:30 WBC 7.4 RBC 3.14 L Hgb 11.2 L Hct 31.3 L MCV 99.9 H MCH 35.6 H MCHC 35.6 RDW 16.2 H Plt Count 132 L MPV 9.3 Absolute Neuts (auto) Neutrophils % Neutrophils % (Manual) Band Neutrophils % Lymphocytes % Lymphocytes % (Manual) Monocytes % Monocytes % (Manual) Eosinophils % Eosinophils % (Manual) Basophils % Basophils % (Manual) Myelocytes % (Man) Promyelocytes % (Man) Blast Cells % (Manual) Nucleated RBC % Metamyelocytes Hypochromia Platelet Estimate Polychromasia Poikilocytosis Anisocytosis Microcytosis Macrocytosis Target Cells Tear Drop Cells Ovalocytes Schistocytes PT with INR INR PTT (Actin FS) 43.1 H Sodium 143 Potassium 3.9 Chloride 111 H Carbon Dioxide 21 Anion Gap 11 BUN 47 H Creatinine 2.0 H Creat Clearance w eGFR 33.49 POC Glucometer Random Glucose 105 Calcium 10.7 H Total Bilirubin 0.7 AST 49 H ALT 13 Alkaline Phosphatase 111 Ammonia Creatine Kinase Troponin I Total Protein 6.5 Albumin 3.2 L Urine Color Urine Appearance Urine pH Ur Specific [place] Urine Protein Urine Glucose (UA) Urine Ketones Urine Blood Urine Nitrite Urine Bilirubin Urine Urobilinogen Ur Leukocyte Esterase Urine WBC (Auto) Urine RBC (Auto) Calcium Oxalate Crystal Urine Bacteria Urine Mucus Ur Random Sodium Ur Random Potassium Ur Random Chloride Urine Creatinine 05/30/18 05/31/18 05/31/18 07:30 07:00 07:00 WBC 8.4 RBC 3.19 L Hgb 11.0 L Hct 31.3 L MCV 98.1 H MCH 34.4 H MCHC 35.0 RDW 16.3 H Plt Count 157 MPV 9.7 Absolute Neuts (auto) Neutrophils % Neutrophils % (Manual) Band Neutrophils % Lymphocytes % Lymphocytes % (Manual) Monocytes % Monocytes % (Manual) Eosinophils % Eosinophils % (Manual) Basophils % Basophils % (Manual) Myelocytes % (Man) Promyelocytes % (Man) Blast Cells % (Manual) Nucleated RBC % Metamyelocytes Hypochromia Platelet Estimate Polychromasia Poikilocytosis Anisocytosis Microcytosis Macrocytosis Target Cells Tear Drop Cells Ovalocytes Schistocytes PT with INR INR PTT (Actin FS) Sodium 144 143 Potassium 3.7 3.4 L Chloride 112 H 112 H Carbon Dioxide 22 20 L Anion Gap 10 11 BUN 47 H 49 H Creatinine 2.1 H 2.4 H Creat Clearance w eGFR 31.66 27.14 POC Glucometer Random Glucose 90 98 Calcium 11.0 H 11.2 H Total Bilirubin 0.6 0.6 AST 42 H 48 H ALT 14 14 Alkaline Phosphatase 113 129 H Ammonia Creatine Kinase Troponin I Total Protein 6.3 L 6.3 L Albumin 3.0 L 2.9 L Urine Color Urine Appearance Urine pH Ur Specific [place] Urine Protein Urine Glucose (UA) Urine Ketones Urine Blood Urine Nitrite Urine Bilirubin Urine Urobilinogen Ur Leukocyte Esterase Urine WBC (Auto) Urine RBC (Auto) Calcium Oxalate Crystal Urine Bacteria Urine Mucus Ur Random Sodium Ur Random Potassium Ur Random Chloride Urine Creatinine 06/01/18 06/01/18 06/02/18 08:30 08:30 07:30 WBC 9.9 9.8 RBC 3.30 L 3.24 L Hgb 11.2 L 11.0 L Hct 33.0 L 32.3 L MCV 100.1 H 99.9 H MCH 33.9 H 34.1 H MCHC 33.9 34.2 RDW 16.4 H 16.6 H Plt Count 150 134 MPV 11.1 D 10.0 Absolute Neuts (auto) Neutrophils % Neutrophils % (Manual) Band Neutrophils % Lymphocytes % Lymphocytes % (Manual) Monocytes % Monocytes % (Manual) Eosinophils % Eosinophils % (Manual) Basophils % Basophils % (Manual) Myelocytes % (Man) Promyelocytes % (Man) Blast Cells % (Manual) Nucleated RBC % Metamyelocytes Hypochromia Platelet Estimate Polychromasia Poikilocytosis Anisocytosis Microcytosis Macrocytosis Target Cells Tear Drop Cells Ovalocytes Schistocytes PT with INR INR PTT (Actin FS) Sodium 143 Potassium 3.4 L Chloride 114 H Carbon Dioxide 18 L Anion Gap 11 BUN 50 H Creatinine 2.2 H Creat Clearance w eGFR 30.00 POC Glucometer Random Glucose 91 Calcium 11.0 H Total Bilirubin 0.7 AST 50 H ALT 15 Alkaline Phosphatase 121 H Ammonia Creatine Kinase Troponin I Total Protein 6.2 L Albumin 2.9 L Urine Color Urine Appearance Urine pH Ur Specific [place] Urine Protein Urine Glucose (UA) Urine Ketones Urine Blood Urine Nitrite Urine Bilirubin Urine Urobilinogen Ur Leukocyte Esterase Urine WBC (Auto) Urine RBC (Auto) Calcium Oxalate Crystal Urine Bacteria Urine Mucus Ur Random Sodium Ur Random Potassium Ur Random Chloride Urine Creatinine 06/02/18 07:30 WBC RBC Hgb Hct MCV MCH MCHC RDW Plt Count MPV Absolute Neuts (auto) Neutrophils % Neutrophils % (Manual) Band Neutrophils % Lymphocytes % Lymphocytes % (Manual) Monocytes % Monocytes % (Manual) Eosinophils % Eosinophils % (Manual) Basophils % Basophils % (Manual) Myelocytes % (Man) Promyelocytes % (Man) Blast Cells % (Manual) Nucleated RBC % Metamyelocytes Hypochromia Platelet Estimate Polychromasia Poikilocytosis Anisocytosis Microcytosis Macrocytosis Target Cells Tear Drop Cells Ovalocytes Schistocytes PT with INR INR PTT (Actin FS) Sodium 146 H Potassium 3.5 Chloride 117 H Carbon Dioxide 19 L Anion Gap 10 BUN 52 H Creatinine 2.3 H Creat Clearance w eGFR 28.50 POC Glucometer Random Glucose 94 Calcium 11.4 H Total Bilirubin 0.7 AST 58 H ALT 14 Alkaline Phosphatase 118 H Ammonia Creatine Kinase Troponin I Total Protein 6.1 L Albumin 2.9 L Urine Color Urine Appearance Urine pH Ur Specific [place] Urine Protein Urine Glucose (UA) Urine Ketones Urine Blood Urine Nitrite Urine Bilirubin Urine Urobilinogen Ur Leukocyte Esterase Urine WBC (Auto) Urine RBC (Auto) Calcium Oxalate Crystal Urine Bacteria Urine Mucus Ur Random Sodium Ur Random Potassium Ur Random Chloride Urine Creatinine Active Medications Generic Name Dose Route Start Last Admin Trade Name Freq PRN Reason Stop Dose Admin Albuterol Sulfate 1 amp 05/26/18 21:31 06/02/18 08:11 Ventolin 0.083% Nebulizer Soln - NEB 1 amp Q6H PRN Administration SHORT OF BREATH/WHEEZING Amlodipine Besylate 2.5 mg 05/27/18 10:00 06/02/18 11:01 Norvasc - PO 2.5 mg DAILY DIANE Administration Atorvastatin Calcium 40 mg 05/26/18 22:00 06/01/18 21:09 Lipitor - PO 40 mg HS DIANE Administration Calcitonin 350 unit 06/01/18 10:00 06/02/18 11:03 Miacalcin Injection - SQ 06/02/18 22:01 350 unit BID DIANE Administration Enoxaparin Sodium 90 mg 06/01/18 10:00 06/02/18 11:02 Lovenox - SQ 90 mg BID DIANE Administration Folic Acid 1 mg 05/27/18 10:00 06/02/18 11:02 Folic Acid - PO 1 mg DAILY DIANE Administration Sodium Chloride 1,000 mls @ 75 mls/hr 05/31/18 19:00 06/01/18 19:00 Normal Saline - IV 75 mls/hr ASDIR DIANE Administration Levetiracetam 500 mg 05/26/18 22:00 06/02/18 11:03 Keppra - PO 500 mg BID DIANE Administration Morphine Sulfate 2 mg 06/01/18 14:45 Morphine Sulfate IVPUSH Q4H PRN PAIN LEVEL 6-10 Pantoprazole Sodium 40 mg 05/27/18 10:00 06/02/18 11:02 Protonix - PO 40 mg DAILY DIANE Administration Thiamine HCl 100 mg 05/27/18 10:00 06/02/18 11:04 Vitamin B1 - PO 100 mg DAILY DIANE Administration Valacyclovir HCl 500 mg 05/26/18 22:00 06/02/18 11:02 Valtrex - PO 500 mg BID DIANE Administration Microbiology 05/26/18 14:40 Blood - Peripheral Venous Blood Culture - Final NO GROWTH AFTER 5 DAYS INCUBATION 05/26/18 14:40 Blood - Peripheral Venous Blood Culture - Final NO GROWTH AFTER 5 DAYS INCUBATION 05/28/18 12:50 Stool Clostridioides difficile Antigen - Final 05/28/18 12:50 Stool Clostridioides difficile Toxin Assay - Final 05/26/18 15:12 Urine - Urine Clean Catch Urine Culture - Final Escherichia Coli Esbl Financial Reporting Consultant 05/27/18 06:50 Nares - Mrsa Screen - Left MRSA Screen - Final NO MRSA ISOLATED 05/27/18 06:50 Nares - Mrsa Screen - Right MRSA Screen - Final NO MRSA ISOLATED Condition: Poor - Instructions Disposition: TRANSFER ACUTE CARE/OTHER HOSP - Home Medications Comprehensive Discharge Medication List: Ambulatory Orders Atorvastatin Ca [Lipitor] 40 mg PO HS 01/12/17 levETIRAcetam [Keppra -] 500 mg PO BID tablet 02/24/17 Albuterol Sulfate Inhaler - [Ventolin Hfa Inhaler -] 2 inh PO QID PRN 11/10/17 Amlodipine Besylate 2.5 mg PO DAILY 11/10/17 Filgrastim [Neupogen] 480 mcg SQ HS 11/10/17 Fluconazole [Diflucan -] 400 mg PO DAILY 11/10/17 Folic Acid 1 mg PO DAILY 11/10/17 Pantoprazole Sodium 40 mg PO DAILY 11/10/17 Sulfamethoxazole/Trimethoprim [Bactrim Ds -] 1 tab PO ASDIR 11/10/17 Thiamine HCl [B-1] 100 mg PO DAILY 11/10/17 Valacyclovir HCl [Valtrex] 500 mg PO Q12H 11/10/17
[2018-06-02] MEDS: MORPHINE SULFATE 2 MG/ML VIAL IVPUSH PRN ×3 (13:04→22:10)
[2018-06-02 14:42] VITALS: BMI 26.9
[2018-06-02] MEDS ORDERED: SCOPOLAMINE HYDROBROMIDE 1 PATCH PATCH.TD72 TD SCH (19:15)
[2018-06-02] MEDS: ATORVASTATIN CA 40 MG TABLET (FP) PO SCH (21:51)
[2018-06-02 23:17] VITALS: BP 90/53; PULSE 81; TEMP 97.9
--- NOTE | 2018-06-03 01:29 | PN ---
Progress Note (short form) - Note Progress Note: I was paged to be notifed that Pt. had . On PE: Pt. did not have pulse, heart beat or respirations. Pt. non-responsive to verbal or tactile stimulation. Pt. did not have corneal, gag or cough reflex. Pt.'s body was cool to touch. Time of 1:22. Dr. Monet called at 1:36am, no answer. Microblog sent to [place] quality control clerk. Pt.s Kin notified at 1:41am. <Enmanuel Alonso - Last Filed: 06/03/18 19:00> - Note Progress Note: Seen and examined; agree with resident note aside from what is supplemented in my own documentation. <Roger Mac - Last Filed: 07/05/18 01:32>
== END 2018-06-03 01:22 | disposition expired | DRG 841 ==
LOC: JER 11:49 → INTOOBSV 16:04 → JERBED 16:04 → J6S 20:24 → OBSVTOIN 05-27 18:31
PROVIDERS: ADMIT Family Medicine; ATTEND Family Medicine
DX: C85.90 Non-Hodgkin lymphoma, unspecified, unspecified site (principal); N17.9 Acute kidney failure, unspecified; I69.354 Hemiplegia and hemiparesis following cerebral infarction affecting left non-dominant side; N39.0 Urinary tract infection, site not specified; E72.20 Disorder of urea cycle metabolism, unspecified; J90 Pleural effusion, not elsewhere classified; J98.11 Atelectasis; I24.8 Other forms of acute ischemic heart disease; I50.22 Chronic systolic (congestive) heart failure; I82.4Z1 Acute embolism and thrombosis of unspecified deep veins of right distal lower extremity; J44.9 Chronic obstructive pulmonary disease, unspecified; K44.9 Diaphragmatic hernia without obstruction or gangrene; R62.7 Adult failure to thrive; Z68.27 Body mass index [BMI] 27.0-27.9, adult; I10 Essential (primary) hypertension; R74.8 Abnormal levels of other serum enzymes; R14.0 Abdominal distension (gaseous); R19.00 Intra-abdominal and pelvic swelling, mass and lump, unspecified site; I46.8 Cardiac arrest due to other underlying condition; E83.52 Hypercalcemia; I48.2 Chronic atrial fibrillation; I25.10 Atherosclerotic heart disease of native coronary artery without angina pectoris; E78.5 Hyperlipidemia, unspecified; R94.5 Abnormal results of liver function studies; I11.0 Hypertensive heart disease with heart failure; Z87.11 Personal history of peptic ulcer disease; Z95.0 Presence of cardiac pacemaker; Z95.2 Presence of prosthetic heart valve; Z77.090 Contact with and (suspected) exposure to asbestos; Z66 Do not resuscitate; Z51.5 Encounter for palliative care
CPT/HCPCS: 36415; 70450-TC; 71045-TC-FY; 74176-TC; 76705-TC; 80051; 80053; 81003; 81015; 82140; 82436; 82550; 82570; 82962; 84133; 84300; 84484; 85025; 85027; 85610; 85730; 87040; 87081; 87086; 87186; 87324; 87449; 93005; 93010; 93306-TC; 93971-TC; 94640; 99283-25; G0378; J1644; J7030; Q9967